=== PATIENT | female | born 1950 | race Caucasian/White ===

== ENCOUNTER → 2017-08-07 09:18 | Outpatient (CLI) | payer MEDICARE, OTHER, SELFPAY ==
[2017-08-07 09:46] LABS: Basophils # 0.1 K/mm3 (0-0.2); Basophils % 0.8 % (0.1-2.0); Eosinophils # 0.3 K/mm3 (0.0-0.4); Eosinophils % 3.4 % (0.1-12.0); Hematocrit 39.4 % (37.0-47.0); Lymphocytes # 1.9 K/mm3 (0.7-4.5); Mean Corpuscular HGB Conc 33.1 g/dL (31.8-35.4); Mean Corpuscular Hemoglobin 30.4 pg (27.0-31.2); Mean Corpuscular Volume 91.9 fl (81-99); Mean Platelet Volume 8.2 fl (7.4-10.4); Monocytes # 0.4 K/mm3 (0.1-1.0); Monocytes % 5.3 % (1.7-9.3); Neutrophils # 5.1 K/mm3 (1.8-7.8); Neutrophils % 65.5 % (37.0-80.0); Platelet Count 232 K/mm3 (142-424); Red Blood Count 4.29 M/mm3 (4.20-5.40); Red Cell Distribution Width 16.1 % (11.5-17.5); White Blood Count 7.7 K/mm3 (4.8-10.8)
[2017-08-07 10:57] LABS: Albumin Level 3.3 gm/dL (3.4-5.0); Anion Gap 12.2 mEq/L (5-15); Blood Urea Nitrogen 45 mg/dL (7-18); Calcium 8.3 mg/dL (8.5-10.1); Carbon Dioxide 28 mmol/L (21.0-32.0); Chloride 103 mmol/L (98-107); Creatinine,Serum 2.51 mg/dL (0.55-1.02); Estimated Glomerular Filt Rate 19 ml/min (>60); GFR (African American) 23 ML/MIN (>60); Phosphorous 4.3 mg/dL (2.4-4.9); Sodium 138 mmol/L (136-145)
[2017-08-07 11:41] LABS: Glucose 167 mg/dL (74-106)
[2017-08-07 11:47] LABS: Potassium 5.2 mmoL/L (3.5-5.1)
== END ==
PROVIDERS: Visit Provider Internal Medicine Nephrology
DX: N18.3 Chronic kidney disease, stage 3 (moderate) (principal)
CPT/HCPCS: 36415; 80069; 85025

== ENCOUNTER → 2017-08-11 13:55 | Outpatient (POV) | payer MEDICARE, OTHER, SELFPAY | PROVIDERS: Visit Provider Internal Medicine Nephrology | DX: Z00.00 Encounter for general adult medical examination without abnormal findings (principal) ==

== ENCOUNTER → 2017-08-14 11:19 | Outpatient (CLI) | payer MEDICARE, OTHER, SELFPAY ==
--- NOTE | 2017-08-14 11:25 | XR_ITS ---
XR hip LT 2-3V w/pelvis HISTORY: ITS.REASON: LEFT HIP PAIN,SCIATICA ORDERING PHYSICIAN: Kassandra Ramires PATIENT AGE: 67 years COMPARISON: None FINDINGS: No fracture or dislocation is evident. No significant degenerative change. No lytic or blastic change. Unremarkable soft tissues IMPRESSION: Negative hip
== END ==
PROVIDERS: PCP Nurse Practitioner; Visit Provider Nurse Practitioner
DX: M25.552 Pain in left hip (principal); M54.30 Sciatica, unspecified side
CPT/HCPCS: 73502

== ENCOUNTER → 2017-09-01 09:15 | Outpatient (CLI) | payer MEDICARE, OTHER, SELFPAY ==
[2017-09-01 11:07] LABS: Albumin Level 3.6 gm/dL (3.4-5.0); Anion Gap 14.7 mEq/L (5-15); Blood Urea Nitrogen 51 mg/dL (7-18); Calcium 8.9 mg/dL (8.5-10.1); Carbon Dioxide 26 mmol/L (21.0-32.0); Chloride 104 mmol/L (98-107); Creatinine,Serum 1.94 mg/dL (0.55-1.02); Estimated Glomerular Filt Rate 26 ml/min (>60); GFR (African American) 31 ML/MIN (>60); Glucose 127 mg/dL (74-106); Phosphorous 4.6 mg/dL (2.4-4.9); Potassium 4.7 mmoL/L (3.5-5.1); Sodium 140 mmol/L (136-145)
== END ==
PROVIDERS: Visit Provider Internal Medicine Nephrology
DX: N18.3 Chronic kidney disease, stage 3 (moderate) (principal)
CPT/HCPCS: 36415; 80069

== ENCOUNTER → 2018-01-07 10:41 | Outpatient (CLI) | payer MEDICARE, OTHER, SELFPAY ==
--- NOTE | 2018-01-07 10:43 | MM_ITS ---
MM Dig screening mamm BI w/CAD ORDERING PHYSICIAN : Roman Mercer MD PATIENT AGE: 67 years GENDER: Female January 2014, June 2015, January 2013, September 2016 bilateral mammogram studies as COMPARISON: INDICATION: ITS.REASON: SCREENING. No hormones. No new complaints. Family history. Mother with breast cancer age 73 TECHNIQUE: Standard CC and MLO images were obtained. R2 CAD reviewed. FINDINGS: Stable mild asymmetry. No significant new findings. No dominant mass nor suspicious calcifications. A mild residual fibroglandular elements most notable towards upper-outer quadrant of both breasts. Right slightly more than left However this pattern has remain stable with no significant change since the above mentioned studies. Specifically the minimal asymmetric likely fibroglandular elements the axillary right breast is long-standing with no significant change.. . Follow up one year adequate bilateral. IMPRESSION: Stable bilateral mammogram.. No significant new findings. No areas of concern BI-RADS Category: 1 Negative RECOMMENDED FOLLOW-UP: 1YR 1 YEAR FOLLOW-UP (A letter has been sent to the patient regarding results of the study.)
== END ==
PROVIDERS: PCP Nurse Practitioner; Visit Provider Family Medicine
DX: Z12.31 Encounter for screening mammogram for malignant neoplasm of breast (principal)
CPT/HCPCS: 77067

== ENCOUNTER 2018-01-07 13:30 | Outpatient (RCR) | payer MEDICARE, OTHER, SELFPAY ==
--- NOTE | 2017-12-23 14:46 | HMH.PTOPEV ---
PT Outpatient Evaluation Rehab PT Outpatient Evaluation Start: 12/23/17 14:30 Freq: Status: Active Protocol: Document 12/23/17 14:30 BRIESOLANGE (Rec: 12/23/17 14:45 JESSICAMERCEDES [id number]) Electronically Signed By Ziyad Mccray PT 12/23/17 14:30 Outpatient Therapy Subjective History Subjective History This is the initial Physical Therapy evaluation for Jillian Robert. Pt is a 67 y/o female referred to PT for c/o L hip pain. Pt reports pain began insidiously ~ 3 weeks ago. Pt reports c/o pain in L greater trochanter and down lateral thigh. Chief Complaint Pain Symptom Type Sharp Burning Shooting Symptoms Relieved By Heat Symptoms Aggravated By Standing Physical Activity Walking Prior Functional Limitations None Current Functional Limitations Housework Recreation Activity Walking Symptom Description Constant but Variable Level of pain today (0-10) 3 Pain scale - at its best (0-10) 3 Pain scale - at its worst (0-10) 9 Hip/Knee Eval Gait Observation General Gait Pattern Observation Antalgic Gait Assistive Device Assistive Devices None / NA Palpation Tenderness left Hip Palpation Findings Tenderness Trigger Point MMT Hip Abduction Strength Grade 3+ Fair+ Gluteus Ludwig Strength Grade 3+ Fair+ Special Tests Hip 90-90 Straight Leg Raise Test Negative Left Sciatic Nerve Tension Test Negative Left Hip Scouring (Quadrant) Test Negative Left Outpatient Therapy Assessment Impairments Problems/Impairmments Palpation Tenderness Impaired Strength Impaired Walking Impaired Standing Impaired Household Care Impaired Recreational Activities Subjective C/O Pain Impaired Self Care/Self Management Prognosis Rehab Potential Fair Clinical Impression Consistent with Diagnosis Yes Short Term Goals Number of Weeks 2 Decreased Palpation Tenderness Yes: 1/4 TTP Increase Strength Yes: 4/5 Increase Ability to Walk Yes: 10+ Improve Ability For Household Care
== END 2018-01-07 13:31 | disposition home or self-care (01) ==
LOC: PT 13:30
PROVIDERS: PCP Nurse Practitioner; Visit Provider Nurse Practitioner Family
DX: M76.32 Iliotibial band syndrome, left leg (principal); M70.62 Trochanteric bursitis, left hip
CPT/HCPCS: 97014; 97110; 97140; 97163; G0283

== ENCOUNTER → 2018-01-15 14:39 | Outpatient (CLI) | payer MEDICARE, OTHER, SELFPAY ==
--- NOTE | 2018-01-15 14:46 | XR_ITS ---
EXAM: XR lumbar spine min 4V HISTORY: ITS.REASON: LUMBAGO WITH BILAT SCIATICA ORDERING PHYSICIAN: Jenny Cruz PATIENT AGE: 67 years COMPARISON: None FINDINGS: There is mild lumbar scoliosis convex right. There is severe degenerative disc disease at L1-L2 with minimal chronic compression changes of L1. Endplate osteophytes are present at that level. There is degenerative disc disease also at L2-L3 L3-L4 and L4-L5 with minimal anterolisthesis of L4 on L5 of 3 mm. No acute fracture or dislocation. No lytic or blastic change. There is faint densities noted in the right upper quadrant and could be related to overlying renal calculi. Vascular calcification is noted. There is catheter noted overlying the left mid abdominal region with a port etiology indeterminate IMPRESSION: 1. Dextroscoliosis with degenerative disc disease as described above and mild chronic wedging of L1. 2. Possible right nephrolithiasis
== END ==
PROVIDERS: PCP Nurse Practitioner Family; Visit Provider Nurse Practitioner Family
DX: M54.42 Lumbago with sciatica, left side (principal); M54.41 Lumbago with sciatica, right side
CPT/HCPCS: 72110

== ENCOUNTER → 2018-01-23 14:46 | Outpatient (CLI) | payer MEDICARE, OTHER, SELFPAY ==
--- NOTE | 2018-01-23 14:47 | MR_ITS ---
MR lumbar spine wo con, MR 3-d myelogram/MRCP HISTORY: PT states low back pain X years. Gotten worse last 6-7 months. Bilateral leg pain. Right leg numbness. ITS.REASON: LUMBAGO WITH SCIATICA/RIGHT AND LEFT SIDE ORDERING PHYSICIAN: Jenny Cruz PATIENT AGE: 67 years Comparison: MRI 10/05/12. x-ray 01/15/18 TECHNIQUE: Standard multiplanar multiecho sequences are performed without contrast. 3-D MIP and myelographic images are also rendered and reviewed FINDINGS: Multilevel degenerative disc disease is present. There is mild lumbar scoliosis convex right. The spinal cord ends at the L1 level. T12-L1: Unremarkable. L1-L2: Severe degenerative disc disease with mild retrolisthesis of L1 of 4 mm. Anterior endplate osteophyte. Mild bulging disc with broad-based right paracentral and foraminal disc osteophyte complex with moderate right lateral recess and foraminal narrowing which is slightly progressed compared to the previous exam. Mild left lateral translation of L1 by approximately 4 mm. L2-L3: Degenerative disc disease with bulging disc and facet and ligamentum flavum hypertrophy. There is associated small left paracentral disc protrusion which is developed compared to the previous study. There is moderate right lateral recess and foraminal narrowing with moderate to severe left lateral recess and foraminal narrowing. There is impingement upon the left L3 nerve root L3-L4: Degenerative disc disease with bulging disc along with facet and ligamentum flavum hypertrophy with severe bilateral lateral recess narrowing along with transverse narrowing of the canal. There is severe left-sided foraminal narrowing and moderate to severe right foraminal narrowing. There is impingement upon the L4 nerve roots bilaterally and the exiting left L3 nerve root. L4-5: Degenerative disc disease with bulging disc and small broad-based central disc protrusion. 3 mm anterolisthesis of L4. Severe facet ligamentum flavum hypertrophic changes are present and are greater on the right compared to the left with severe right lateral recess and foraminal narrowing. The nerve roots are not well delineated at this level due to the severe narrowing of the canal but are likely impinged upon. There is impingement upon the exiting L4 nerve root. There is moderate to severe left foraminal narrowing with impingement upon the L5 nerve root. These findings have developed since the previous exam. There is severe canal stenosis with transverse narrowing of the canal which measures 5 mm L5-S1: Degenerative disc disease with bulging disc and minimal central disc protrusion with mild facet and ligamentum flavum hypertrophy. Moderate right foraminal narrowing. IMPRESSION: Multilevel lumbar spondylosis as detailed above with degenerative disc disease, bulging disc, and facet and ligamentum flavum hypertrophy with resultant canal stenosis, lateral recess narrowing, and foraminal narrowing with nerve root impingement. Please see above for detailed description at each level. The canal stenosis is most severe at L4-5. The lateral recess narrowing is also most severe on the right at L4-L5. There is a small left paracentral disc protrusion at L2-L3 and there is transverse narrowing of the canal at L3-L4 as well. Please see above for detailed descriptions at each level
--- NOTE | 2018-01-23 15:19 | HMH.ITSHM ---
tamsulosin sulfasalazine diltoeizen omeprazole eloquin metformin methotrexate losartan dig spirolactone
== END ==
PROVIDERS: PCP Nurse Practitioner Family; Visit Provider Nurse Practitioner Family
DX: M54.42 Lumbago with sciatica, left side (principal); M54.41 Lumbago with sciatica, right side
CPT/HCPCS: 72148; 76376

== ENCOUNTER 2018-04-27 08:29 | Observation (INO) ==
--- NOTE | 2018-04-27 09:01 | Emergency Department Note ---
ED Disposition Clinical Impression: Nausea and vomiting after administration of anesthetic agent, Nausea and vomiting in adult patient, Hyperglycemia due to type 1 diabetes mellitus Disposition: Admitted as Observation Condition on Discharge: Fair Instructions: Nausea and Vomiting-Adult Additional Instructions: DI for Hyperglycemia DI for Hypovolemia Referrals: Jenny Cruz APRN [Primary Care Provider] - Time of Disposition: 09:54 - Critical Care Critical Care Time: No (no) Attestation: On , the high probability of a clinically significant, sudden or life threatening deterioration of the following system(s) required my full and direct attention, intervention and personal management. The time I documented below is in addition to time spent performing reported procedures but includes the following listed in this critical care notation. Medical Decision Making - Medical Records Medical records reviewed: Yes: I reviewed the patient's medical records. - [place] Inquiry Pt receiving controlled substance: No Donald was queried for this patient: No Vital Signs: 04/27/18 08:31 04/27/18 08:54 04/27/18 09:29 Temperature 98.2 F Temperature Source Oral Pulse Rate [Right Brachial] 125 H 116 H 120 H Respiratory Rate 18 18 18 Blood Pressure [Right Arm] 162/104 H 145/81 H 160/95 H Blood Pressure Mean [Right Arm] 123 102 116 Blood Pressure Source [Right Arm] Automatic Cuff Automatic Cuff Automatic Cuff Blood Pressure Position [Right Arm] Sitting Sitting Supine 02 Sat by Pulse Oximetry 96 95 97 Oxygen Delivery Method Room Air Room Air Room Air - Lab Data Lab results reviewed: Yes: I reviewed the patient's lab results. Lab Results 04/27/18 08:45: WBC 14.4 H, RBC 4.60, Hgb 13.8, Hct 43.2, MCV 93.9, MCH 30.1, MCHC 32.0, RDW 16.1, Plt Count 693 H, MPV 6.9 L, Neut % (Auto) 77.5, Lymph % (Auto) 15.1, [place] % (Auto) 4.5, Eos % (Auto) 1.7, Baso % (Auto) 1.1, Neut # (Auto) 11.2 H, Lymph # (Auto) 2.2, [place] # (Auto) 0.7, Eos # (Auto) 0.2, Baso # (Auto) 0.2 04/27/18 08:45: Sodium 135 L, Potassium 4.4, Chloride 96 L, Carbon Dioxide 26, Anion Gap 17.4 H, BUN 16, Creatinine 1.78 H, Estimated Creat Clear 30, Estimated GFR 28 L, Est GFR ( Amer) 34 L, Glucose 203 H, Calcium 8.5, Total Bilirubin 0.4, AST 20, ALT 18, Alkaline Phosphatase 197 H, Total Protein 7.0, Albumin 3.1 L, Globulin 3.9 H, Albumin/Globulin Ratio 0.8 L 04/27/18 08:45: Amylase 18 L, Lipase 92 Result diagrams: 04/27/18 08:45 04/27/18 08:45 Orders (Tests/Meds): ED MEDICATIONS Generic Name Dose Route Start Last Admin Trade Name Freq PRN Reason Stop Dose Admin Sodium Chloride 1,000 mls @ 999 mls/hr 04/27/18 09:00 04/27/18 09:00 Sod Chlor 0.9% 1000ml Bag IV 04/27/18 10:00 999 mls/hr .Q1H1M PRAVEENA Administration Discontinued Medications Generic Name Dose Route Start Last Admin Trade Name Freq PRN Reason Stop Dose Admin Promethazine HCl 12.5 mg 04/27/18 08:53 04/27/18 09:00 Phenergan 25mg/Ml 1ml Vial IV 04/27/18 08:54 12.5 mg ONCE ONE Administration Sodium Chloride 25 ml 04/27/18 08:53 04/27/18 09:00 Sod Chlor 0.9% 25ml Bag IV 04/27/18 08:54 25 ml ONCE ONE Administration ORDERS Category Date Time Status Acute abdomen XR series [XR acute abdomen series] Stat Exams 04/27/18 08:52 Taken - Radiology Data #1 Image(s): Chest, Abdomen Image Reviewed: Yes I reviewed the patient's radiology results Preliminary Findings: Normal/NAD Nausea/Vomiting/Diarrhea HPI - General Chief complaint: Nausea/Vomiting/Diarrhea Stated complaint: vomiting Time Seen by Provider: 04/27/18 08:58 Mode of Arrival: Wheelchair Source of Information: Patient, Spouse Limitations: No Limitations Description of Symptoms (Recalled from ER Triage Doc. by RN): Pt reports has been having nausea and vomitting since she had a lumbar fusion on 04/08/18. Pt report she was previously seen in the ER for same complaint, states she was given IVF, felt better the next day but nausea and vomitting returned. Pt reports she has followed up with her surgeon Dr. Blanchard who told pt is may be from pt having to get narcan while in the hospital after surgery. Pt reports "they overdosed me on oxycontin and then I had to get 2 narcan shots". - History of Present Illness MD complaint: nausea, vomiting Onset (ago): week(s) (3) Description of Vomiting: food contents Associated Abdominal Pain: No Consistency: intermittent Relieving factors: none Exacerbating factors: eating Associated symptoms: denies other symptoms - Related Data Home Medications Medication Instructions Recorded Confirmed Allopurinol [Allopurinol 100mg 100 mg PO DAILY 04/27/18 04/27/18 tablet] Carvedilol [Carvedilol 25mg Tab] 25 mg PO BID 04/27/18 04/27/18 Empagliflozin [Jardiance] 25 mg PO DAILY 04/27/18 04/27/18 Gabapentin [Gabapentin 300mg Cap] 600 mg PO TID 04/27/18 04/27/18 Icosapent Ethyl [Vascepa] 1 gm PO DAILY 04/27/18 04/27/18 Insulin Lispro [Humalog] 0 unit SQ AC 04/27/18 04/27/18 Levothyroxine Sodium 125 mcg PO DAILY 04/27/18 04/27/18 [Levothyroxine 125mcg (0.125mg) Tab] Losartan Potassium 50 mg PO DAILY 04/27/18 04/27/18 Metoclopramide HCl [Reglan 5mg 5 mg PO AC 04/27/18 04/27/18 Tablet] Omeprazole [Omeprazole 40mg 40 mg PO DAILY 04/27/18 04/27/18 Capsule] Rosuvastatin Calcium [Crestor] 10 mg PO DAILY 04/27/18 04/27/18 Scopolamine [Transderm-Scop 1 patch TD NEEDED PRN 04/27/18 04/27/18 1.5mg/72hrs patch] Trazodone HCl 50 mg PO HS 04/27/18 04/27/18 Allergies Allergy/AdvReac Type Severity Reaction Status Date / Time lisinopril [LISINOPRIL] Allergy Severe S-SWELLS-OR Verified 04/18/18 13:01 AL/THROAT nitrofurantoin Allergy Intermediate I-HIVES Verified 04/18/18 13:01 [NITROFURANTOIN] codeine [CODEINE] Allergy Unknown NA-NAUSEA/V Verified 04/18/18 13:01 OMITING [place] History I have reviewed the patient's past medical history: Yes Medical History: Reports:: Diabetes Mellitus Type 2 Laterality Cases: Right: Other - Social History Alcohol Intake: never - Psychiatric History Expresses thoughts of harming self/others: None Suicide Plan Description: No Plan ROS Obtained: Yes All systems reviewed & no additional complaints - Constitutional Constitutional: Reports system reviewed and no additional complaints, except as docu, Denies chills, Denies fever(s) - Cardiovascular Cardiovascular: Reports system reviewed and no additional complaints, except as docu, Denies chest pain, Denies dyspnea - Respiratory Respiratory: Yes system reviewed and no additional complaints, except as docu, No cough, No dyspnea - Gastrointestinal Gastrointestingal: Reports: system reviewed and no additional complaints, except as docu, nausea, vomiting. Denies: coffee ground emesis, constipation, diarrhea, dysphagia - Genitourinary Female Genitourinary: Reports system reviewed and no additional complaints, except as docu, Denies dysuria, Denies flank pain, Denies pelvic pain, Denies urinary frequency, Denies urinary hesitancy, Denies urinary urgency - Neurologic Neurologic: Reports system reviewed and no additional complaints, except as docu, Denies convulsions, Denies dizziness, Denies headache(s) Physical Exam - General General appearance: alert, in no apparent distress - Head Head exam: atraumatic, normocephalic, normal inspection - ENT ENT exam: Present: normal exam, normal oropharynx, mucous membranes moist, TM's normal bilaterally, normal external ear exam - Respiratory Respiratory exam: Present: normal lung sounds bilaterally. Absent: respiratory distress - Cardiovascular Cardiovascular exam: Present: regular rate, normal rhythm. Absent: JVD - Abdominal Exam Abdominal exam: Present: soft, normal bowel sounds. Absent: distention, tenderness, guarding - Back Exam Back exam: Present: normal inspection. Absent: tenderness - Neurological Exam Neurological exam: Present: alert, oriented X3 - Psychiatric Psychiatric exam: Present: normal affect, normal mood - Skin Skin exam: Present: warm, dry, intact, normal color
[2018-04-27 09:03] LABS: Basophils # 0.2 K/mm3 (0-0.2); Basophils % 1.1 % (0.1-2.0); Eosinophils # 0.2 K/mm3 (0.0-0.4); Eosinophils % 1.7 % (0.1-12.0); Hematocrit 43.2 % (37.0-47.0); Hemoglobin 13.8 g/dL (12.2-16.2); Lymphocytes # 2.2 K/mm3 (0.7-4.5); Lymphocytes % 15.1 % (10-50); Mean Corpuscular Hemoglobin 30.1 pg (27.0-31.2); Mean Corpuscular Volume 93.9 fl (81-99); Mean Platelet Volume 6.9 fl (7.4-10.4); Monocytes # 0.7 K/mm3 (0.1-1.0); Monocytes % 4.5 % (1.7-9.3); Neutrophils # 11.2 K/mm3 (1.8-7.8); Neutrophils % 77.5 % (37.0-80.0); Platelet Count 693 K/mm3 (142-424); Red Cell Distribution Width 16.1 % (11.5-17.5); White Blood Count 14.4 K/mm3 (4.8-10.8)
[2018-04-27 09:08] LABS: Amylase 18 U/L (25-115); Lipase 92 u/L (73-393)
[2018-04-27 09:11] LABS: Albumin Level 3.1 gm/dL (3.4-5.0); Albumin/Globulin Ratio 0.8 (1.1-1.8); Anion Gap 17.4 mEq/L (5-15); Bilirubin,Total 0.4 mg/dL (0.2-1.0); Calcium 8.5 mg/dL (8.5-10.1); Globulin 3.9 gm/dl (1.3-3.2); Potassium 4.4 mmoL/L (3.5-5.1)
--- NOTE | 2018-04-27 12:10 | History & Physical Report ---
*Admission Date: 04/27/18 *Chief complaint: Vomiting *History of present illness: 67-year-old female who underwent lumbar spine fusion on April 08 and postoperatively began vomiting after meals. Vomiting after meals regardless of whether meals consist of solids or liquids has persisted now for 3 weeks. Rickey valladares tells me within a few minutes of beginning to eat the patient will develop nausea and then vomited. During this time stools have been black and green. Bowel movements have remained regular and she even uses Imodium due to occasional bowel incontinence. She denies fevers or chills. She denies abdominal pain. Patient's most recent episode of vomiting was quite severe and began screaming and lasted the night. When she in the emergency treatment she was retching. She has been admitted for IV fluids, antiemetics and GI workup. Patient's symptoms have been treated with oral Zofran and Reglan as well as a scopolamine patch. [facility] History I have reviewed the patient's past medical history: Yes Medical History: Reports:: Diabetes Mellitus Type 2, Hypertension Other Medical History: Reports: Anemia, Hypothyroidism Laterality Cases: Right: Other Other Surgeries: Yes: Hysterectomy-Total (2001) - *Social History Alcohol Intake: never Occupational Status: retired - Psychiatric History Expresses thoughts of harming self/others: None Suicide Plan Description: No Plan Review of Systems - Review of Systems Review of systems:: pertinent systems reviewed and negative unless documented below - Constitutional Denies body ache(s), Denies chills, Denies daytime sleepiness - ENT Denies difficulty swallowing, Denies bad breath - *Cardiovascular Denies chest pain, Denies chest pain at rest, Denies chest pain with activity, Denies shortness of breath - *Respiratory Denies chest congestion, Denies cough, Denies shortness of breath - *Gastrointestinal Reports change in stools, Reports loose stools, Reports heartburn, Reports heartburn, Reports loose stools, Reports black, tarry stools, Reports nausea, Reports vomiting, Denies abdominal pain, Denies belching, Denies bloating, Denies difficulty swallowing, Denies feeling full early, Denies vomiting blood, Denies bright, red blood in stools, Denies pain with swallowing, Denies constant urge to pass stool - *Musculoskeletal Reports joint pain - *Neurologic Denies seizure-like activity, Denies dizziness, Denies headache(s) Meds Home Medications Medication Instructions Recorded Confirmed Type Allopurinol [Allopurinol 100mg 100 mg PO DAILY 04/27/18 04/27/18 History tablet] Carvedilol [Carvedilol 25mg Tab] 25 mg PO BID 04/27/18 04/27/18 History Empagliflozin [Jardiance] 25 mg PO DAILY 04/27/18 04/27/18 History Gabapentin [Gabapentin 300mg Cap] 600 mg PO TID 04/27/18 04/27/18 History Icosapent Ethyl [Vascepa] 1 gm PO DAILY 04/27/18 04/27/18 History Insulin Lispro [Humalog] 0 unit SQ AC 04/27/18 04/27/18 History Levothyroxine Sodium 125 mcg PO DAILY 04/27/18 04/27/18 History [Levothyroxine 125mcg (0.125mg) Tab] Losartan Potassium 50 mg PO DAILY 04/27/18 04/27/18 History Metoclopramide HCl [Reglan 5mg 5 mg PO AC 04/27/18 04/27/18 History Tablet] Omeprazole [Omeprazole 40mg 40 mg PO DAILY 04/27/18 04/27/18 History Capsule] Rosuvastatin Calcium [Crestor] 10 mg PO DAILY 04/27/18 04/27/18 History Scopolamine [Transderm-Scop 1 patch TD NEEDED PRN 04/27/18 04/27/18 History 1.5mg/72hrs patch] Trazodone HCl 50 mg PO HS 04/27/18 04/27/18 History Allergies Allergy/AdvReac Type Severity Reaction Status Date / Time lisinopril [LISINOPRIL] Allergy Severe S-SWELLS-OR Verified 04/18/18 13:01 AL/THROAT nitrofurantoin Allergy Intermediate I-HIVES Verified 04/18/18 13:01 [NITROFURANTOIN] codeine [CODEINE] Allergy Unknown NA-NAUSEA/V Verified 04/18/18 13:01 OMITING acetaminophen [From Percocet] AdvReac Severe Hallucinati Verified 04/27/18 11:03 ng oxycodone [From Percocet] AdvReac Severe Hallucinati Verified 04/27/18 11:03 ng Exam Vital signs and Labs for Last 24 Hours: Temp Pulse Resp BP Pulse Ox 98.3 F 120 H 18 159/106 H 97 04/27/18 11:04 04/27/18 11:04 04/27/18 11:04 04/27/18 11:04 04/27/18 11:04 Laboratory Results - last 24 hr 04/27/18 08:45: WBC 14.4 H, RBC 4.60, Hgb 13.8, Hct 43.2, MCV 93.9, MCH 30.1, MCHC 32.0, RDW 16.1, Plt Count 693 H, MPV 6.9 L, Neut % (Auto) 77.5, Lymph % (Auto) 15.1, [place] % (Auto) 4.5, Eos % (Auto) 1.7, Baso % (Auto) 1.1, Neut # (Auto) 11.2 H, Lymph # (Auto) 2.2, [place] # (Auto) 0.7, Eos # (Auto) 0.2, Baso # (Auto) 0.2 04/27/18 08:45: Sodium 135 L, Potassium 4.4, Chloride 96 L, Carbon Dioxide 26, Anion Gap 17.4 H, BUN 16, Creatinine 1.78 H, Estimated Creat Clear 30, Estimated GFR 28 L, Est GFR ( Amer) 34 L, Glucose 203 H, Calcium 8.5, Total Bilirubin 0.4, AST 20, ALT 18, Alkaline Phosphatase 197 H, Total Protein 7.0, Albumin 3.1 L, Globulin 3.9 H, Albumin/Globulin Ratio 0.8 L 04/27/18 08:45: Amylase 18 L, Lipase 92 I & O for Last 24 hours: Intake & Output 04/25/18 04/26/18 04/27/18 04/28/18 11:59 11:59 11:59 11:59 Intake Total 1000 / 1000 Balance 1000 / 1000 Weight 129 lb 8 oz - Constitutional no acute distress - *Routine HEENT Exam ENT: Present: mucous membranes moist - *Routine Respiratory Exam Present: CTA bilaterally - *Routine Cardiovascular Exam Present: RRR, Normal S1, Normal S2 - *Routine Abdominal Exam Present: soft, normoactive bowel sounds. Absent: tenderness, distended, rebound, guarding - *Routine Extremities Exam Present: full ROM - *Routine Skin Exam Present: intact. Absent: erythema, lesions - *Routine Neurological Exam Present: alert, oriented X3, CN II-XII intact. Absent: sensory deficit, motor deficit Assessment and Plan (1) Hypertension Current visit: Yes Status: Acute Category: Medical Code(s): I10 - Essential (primary) hypertension (2) Type 2 diabetes mellitus with hyperglycemia Current visit: Yes Status: Acute Category: Medical Code(s): E11.65 - Type 2 diabetes mellitus with hyperglycemia (3) Hypothyroidism Current visit: Yes Status: Acute Category: Medical Code(s): E03.9 - Hypothyroidism, unspecified (4) GERD (gastroesophageal reflux disease) Current visit: Yes Status: Acute Category: Medical Code(s): K21.9 - Gastro-esophageal reflux disease without esophagitis (5) Nausea and vomiting in adult patient Current visit: Yes Status: Acute Category: Medical Code(s): R11.2 - Nausea with vomiting, unspecified (6) Fusion of lumbar spine Current visit: No Status: Acute Category: Medical Code(s): M43.26 - Fusion of spine, lumbar region (7) Renal insufficiency Current visit: No Status: Acute Category: Medical Code(s): N28.9 - Disorder of kidney and ureter, unspecified - Assessment and plan all Dx Assessment and Plan for all problems:: 1. Patient has been admitted for IV fluids and IV metoclopramide every 6 hours will be added to her regimen as well as IV Protonix. 2. Fingerstick blood sugars with before meals and at bedtime coverage 3. Home medicines if she can tolerate 4. Patient will be started on clears but I will order an upper GI. If upper GI is unrevealing patient will need endoscopy.
--- NOTE | 2018-04-27 14:36 | Pharmacy Consult Notes ---
[facility] Pharmacy VTE Monitoring - Patient Demographics Admission date: 04/27/18 Report Date: 04/27/18 Time: 14:35 Allergies/Adverse Reactions: Patient Allergies lisinopril [LISINOPRIL] Allergy (Severe, Verified 04/18/18 13:01) [id number]/THROAT nitrofurantoin [NITROFURANTOIN] Allergy (Intermediate, Verified 04/18/18 13:01) I-HIVES codeine [CODEINE] Allergy (Unknown, Verified 04/18/18 13:01) NA-NAUSEA/VOMITING acetaminophen [From Percocet] Adverse Reaction (Severe, Verified 04/27/18 11:03) Hallucinating oxycodone [From Percocet] Adverse Reaction (Severe, Verified 04/27/18 11:03) Hallucinating Height: 1.5 m Weight: 58.74 kg Patient Problems: Current Active Problems Nausea and vomiting after administration of anesthetic agent (Acute) Nausea and vomiting in adult patient (Acute) Hyperglycemia due to type 1 diabetes mellitus (Acute) Hypertension (Acute) Type 2 diabetes mellitus with hyperglycemia (Acute) Hypothyroidism (Acute) GERD (gastroesophageal reflux disease) (Acute) - VTE Risk Labs: VTE Related Lab Results Hgb 13.8 g/dL (12.2-16.2) 04/27/18 08:45 Hct 43.2 % (37.0-47.0) 04/27/18 08:45 Plt Count 693 K/mm3 (142-424) H 04/27/18 08:45 BUN 16 mg/dL (7-18) 04/27/18 08:45 Creatinine 1.78 mg/dL (0.55-1.02) H 04/27/18 08:45 Estimated Creat Clear 30 mL/min (50-200) 04/27/18 08:45 Was VTE Risk Assessment Performed: Yes VTE Score: 4 VTE Risk Level: Low Risk - Prophylaxis VTE Prophylaxis Ordered?: Yes Types of VTE Prophylaxis: TEDS Knee High Location of Applied Device: Bilateral Lower Extremeties
[2018-04-28 05:54] LABS: Basophils # 0.1 K/mm3 (0-0.2); Eosinophils # 0.4 K/mm3 (0.0-0.4); Eosinophils % 4.6 % (0.1-12.0); Hematocrit 35.3 % (37.0-47.0); Lymphocytes # 2.7 K/mm3 (0.7-4.5); Lymphocytes % 31.6 % (10-50); Mean Corpuscular HGB Conc 31.8 g/dL (31.8-35.4); Mean Corpuscular Volume 94.3 fl (81-99); Monocytes # 0.5 K/mm3 (0.1-1.0); Monocytes % 5.9 % (1.7-9.3); Neutrophils # 4.9 K/mm3 (1.8-7.8); Neutrophils % 56.9 % (37.0-80.0); Platelet Count 498 K/mm3 (142-424); Red Blood Count 3.75 M/mm3 (4.20-5.40); White Blood Count 8.6 K/mm3 (4.8-10.8)
[2018-04-28 06:09] LABS: Chol/HDL Ratio 5.9 (1-3.5); Cholesterol 220 mg/dL (140-200); HDL Cholesterol 37 mg/dL (29-89)
[2018-04-28 06:22] LABS: Triglycerides 406 mg/dL (30-200)
[2018-04-28 06:29] LABS: Hemoglobin 11.2 g/dL (12.2-16.2)
--- NOTE | 2018-04-28 07:14 | Progress Note ---
Internal Medicine - PN: Subj *Date: 04/28/18 *Time: 07:13 Interval history: Patient is without complaints this morning. She tolerated cranberry juice and bouillon. Upper GI performed yesterday afternoon was normal Exam Vital signs and Labs for Last 24 Hours: Temp Pulse Resp BP Pulse Ox 98.0 F 91 H 18 143/72 H 95 04/28/18 04:33 04/28/18 04:33 04/28/18 04:33 04/28/18 04:33 04/28/18 04:33 Laboratory Results - last 24 hr 04/27/18 08:45: WBC 14.4 H, RBC 4.60, Hgb 13.8, Hct 43.2, MCV 93.9, MCH 30.1, MCHC 32.0, RDW 16.1, Plt Count 693 H, MPV 6.9 L, Neut % (Auto) 77.5, Lymph % (Auto) 15.1, [place] % (Auto) 4.5, Eos % (Auto) 1.7, Baso % (Auto) 1.1, Neut # (Auto) 11.2 H, Lymph # (Auto) 2.2, [place] # (Auto) 0.7, Eos # (Auto) 0.2, Baso # (Auto) 0.2 04/27/18 08:45: Sodium 135 L, Potassium 4.4, Chloride 96 L, Carbon Dioxide 26, Anion Gap 17.4 H, BUN 16, Creatinine 1.78 H, Estimated Creat Clear 30, Estimated GFR 28 L, Est GFR ( Amer) 34 L, Glucose 203 H, Calcium 8.5, Total Bilirubin 0.4, AST 20, ALT 18, Alkaline Phosphatase 197 H, Total Protein 7.0, Albumin 3.1 L, Globulin 3.9 H, Albumin/Globulin Ratio 0.8 L 04/27/18 08:45: Amylase 18 L, Lipase 92 04/27/18 17:29: POC Glucose 101 04/27/18 21:57: POC Glucose 143 H 04/28/18 05:15: WBC 8.6 D, RBC 3.75 L, Hgb 11.2 L D, Hct 35.3 L, MCV 94.3, MCH 30.0, MCHC 31.8, RDW 16.0, Plt Count 498 H D, MPV 7.0 L, Neut % (Auto) 56.9, Lymph % (Auto) 31.6, [place] % (Auto) 5.9, Eos % (Auto) 4.6, Baso % (Auto) 1.0, Neut # (Auto) 4.9, Lymph # (Auto) 2.7, [place] # (Auto) 0.5, Eos # (Auto) 0.4, Baso # (Auto) 0.1 04/28/18 05:15: Magnesium 1.0 L, Triglycerides 406 H, Cholesterol 220 H, HDL Cholesterol 37, Cholesterol/HDL Ratio 5.9 H 04/28/18 05:54: POC Glucose 104 I & O for Last 24 hours: Intake & Output 04/25/18 04/26/18 04/27/18 04/28/18 11:59 11:59 11:59 11:59 Intake Total 999 / 2538 Balance 999 / 2538 Weight 129 lb 8 oz 129 lb 8 oz Narrative: She looks well. Lungs are clear to auscultation. Heart has a regular rate and rhythm. Abdomen is soft and nontender. Bowel sounds are present Assessment and Plan (1) Nausea and vomiting in adult patient Current visit: Yes Status: Acute Category: Medical Code(s): R11.2 - Nausea with vomiting, unspecified (2) Hypertension Current visit: Yes Status: Acute Category: Medical Code(s): I10 - Essential (primary) hypertension (3) Type 2 diabetes mellitus with hyperglycemia Current visit: Yes Status: Acute Category: Medical Code(s): E11.65 - Type 2 diabetes mellitus with hyperglycemia (4) Hypothyroidism Current visit: Yes Status: Acute Category: Medical Code(s): E03.9 - Hypothyroidism, unspecified (5) GERD (gastroesophageal reflux disease) Current visit: Yes Status: Acute Category: Medical Code(s): K21.9 - Gastro-esophageal reflux disease without esophagitis (6) Fusion of lumbar spine Current visit: No Status: Acute Category: Medical Code(s): M43.26 - Fusion of spine, lumbar region (7) Renal insufficiency Current visit: No Status: Acute Category: Medical Code(s): N28.9 - Disord er of kidney and ureter, unspecified - Assessment and plan all Dx Assessment and Plan for all problems:: Continue IV Reglan and advance diet. Decrease IV fluids. Replace magnesium.
--- NOTE | 2018-04-28 16:41 | Discharge Summary ---
General - General Admission date:: 04/27/18 <Roman Mercer - 04/28/18 16:47> 04/27/18 <Audrey Reeder - 04/28/18 16:46> Discharge date: 04/28/18 <Audrey Reeder - 04/28/18 16:46> HPI HPI: 67-year-old female who underwent lumbar spine fusion on April 08 and postoperatively began vomiting after meals. Vomiting after meals regardless of whether meals consist of solids or liquids has persisted now for 3 weeks. Patient tells me within a few minutes of beginning to eat the patient will develop nausea and then vomited. During this time stools have been black and green. Bowel movements have remained regular and she even uses Imodium due to occasional bowel incontinence. She denies fevers or chills. She denies abdominal pain. Patient's most recent episode of vomiting was quite severe and began screaming and lasted the night. When she in the emergency treatment she was retching. She has been admitted for IV fluids, antiemetics and GI workup. Patient's symptoms have been treated with oral Zofran and Reglan as well as a scopolamine patch. <Audrey Reeder 04/28/18 16:46> Hospital Course Hospital Course: Patient was admitted and placed on antiemetics, given IVFs. Patient did not have any nausea or vomit a single time after admission to the floor. Upper GI performed, this was negative, she has tolerated full liquids without any nausea or vomiting. <Audrey Reeder - 04/28/18 16:46> Objective Vital signs: Temp Pulse Resp BP Pulse Ox 97.8 F 89 18 153/89 H 93 L 04/28/18 16:00 04/28/18 16:00 04/28/18 16:00 04/28/18 16:00 04/28/18 16:00 <Roman Mercer - 04/28/18 16:47> Temp Pulse Resp BP Pulse Ox 98.0 F 96 H 16 166/92 H 96 04/28/18 08:00 04/28/18 08:00 04/28/18 08:00 04/28/18 08:00 04/28/18 08:00 <Audrey Reeder - 04/28/18 16:46> no acute distress <Audrey Reeder - 04/28/18 16:46> - *Routine HEENT Exam Head: Present: normocephalic, atraumatic <Audrey Reeder - 04/28/18 16:46> - *Routine Respiratory Exam Present: CTA bilaterally. Absent: accessory muscle use <Audrey Reeder - 04/28/18 16:46> - *Routine Abdominal Exam Present: soft, normoactive bowel sounds. Absent: tenderness <Audrey Reeder - 04/28/18 16:46> - *Routine Neurological Exam Present: alert, oriented X3 <Audrey Reeder - 04/28/18 16:46> - Routine Psychiatric Exam Present: normal affect <Audrey Reeder - 04/28/18 16:46> Results Labs on day of discharge: Labs from last 24 hours 04/28/18 04/28/18 04/28/18 12:24 05:54 05:15 WBC RBC Hgb Hct MCV MCH MCHC RDW Plt Count MPV Neut % (Auto) Lymph % (Auto) [place] % (Auto) Eos % (Auto) Baso % (Auto) Neut # (Auto) Lymph # (Auto) [place] # (Auto) Eos # (Auto) Baso # (Auto) POC Glucose 134 H 104 Magnesium 1.0 L Triglycerides 406 H Cholesterol 220 H HDL Cholesterol 37 Cholesterol/HDL Ratio 5.9 H 04/28/18 04/27/18 04/27/18 05:15 21:57 17:29 WBC 8.6 D RBC 3.75 L Hgb 11.2 L D Hct 35.3 L MCV 94.3 MCH 30.0 MCHC 31.8 RDW 16.0 Plt Count 498 H D MPV 7.0 L Neut % (Auto) 56.9 Lymph % (Auto) 31.6 [place] % (Auto) 5.9 Eos % (Auto) 4.6 Baso % (Auto) 1.0 Neut # (Auto) 4.9 Lymph # (Auto) 2.7 [place] # (Auto) 0.5 Eos # (Auto) 0.4 Baso # (Auto) 0.1 POC Glucose 143 H 101 Magnesium Triglycerides Cholesterol HDL Cholesterol Cholesterol/HDL Ratio <Roman Mercer - 04/28/18 16:47> Labs from last 24 hours 04/28/18 04/28/18 04/28/18 12:24 05:54 05:15 WBC RBC Hgb Hct MCV MCH MCHC RDW Plt Count MPV Neut % (Auto) Lymph % (Auto) [place] % (Auto) Eos % (Auto) Baso % (Auto) Neut # (Auto) Lymph # (Auto) [place] # (Auto) Eos # (Auto) Baso # (Auto) POC Glucose 134 H 104 Magnesium 1.0 L Triglycerides 406 H Cholesterol 220 H HDL Cholesterol 37 Cholesterol/HDL Ratio 5.9 H 04/28/18 04/27/18 04/27/18 05:15 21:57 17:29 WBC 8.6 D RBC 3.75 L Hgb 11.2 L D Hct 35.3 L MCV 94.3 MCH 30.0 MCHC 31.8 RDW 16.0 Plt Count 498 H D MPV 7.0 L Neut % (Auto) 56.9 Lymph % (Auto) 31.6 [place] % (Auto) 5.9 Eos % (Auto) 4.6 Baso % (Auto) 1.0 Neut # (Auto) 4.9 Lymph # (Auto) 2.7 [place] # (Auto) 0.5 Eos # (Auto) 0.4 Baso # (Auto) 0.1 POC Glucose 143 H 101 Magnesium Triglycerides Cholesterol HDL Cholesterol Cholesterol/HDL Ratio <Audrey Reeder S - 04/28/18 16:46> DS: Diagnosis - Discharge Diagnosis (1) Nausea and vomiting in adult patient Status: Acute (2) Hypertension Status: Acute (3) Type 2 diabetes mellitus with hyperglycemia Status: Acute (4) Hypothyroidism Status: Acute (5) GERD (gastroesophageal reflux disease) Status: Acute (6) Fusion of lumbar spine Status: Acute (7) Renal insufficiency Status: Acute <Audrey Reeder S - 04/28/18 16:36> (1) Nausea and vomiting in adult patient Status: Acute (2) Hypertension Status: Acute (3) Type 2 diabetes mellitus with hyperglycemia Status: Acute (4) Hypothyroidism Status: Acute (5) GERD (gastroesophageal reflux disease) Status: Acute (6) Fusion of lumbar spine Status: Acute (7) Renal insufficiency Status: Acute <Roman Mercer - 04/28/18 16:47> Discharge Plan - Patient Discharge Instructions ACTIVITY: Continue current activity <Audrey Reeder - 04/28/18 16:46> Additional Instructions: eat lightly for the first few days, may advance as tolerated <Roman Mercer - 04/28/18 16:47> Patient Instructions: Nausea and Vomiting-Adult <Roman Mercer - 04/28/18 16:47> Forms: <Roman Mercer - 04/28/18 16:47> - Follow up Plan Follow up with: Audrey Reeder APRN [Nurse Practitioner] - 05/01/18 10:00 am <Roman Mercer - 04/28/18 16:47> Disposition: Home, Self-Care <Roman Mercer - 04/28/18 16:47> Home Medications: Home Medications Medication Instructions Recorded Confirmed Type Carvedilol [Carvedilol 25mg Tab] 25 mg PO BID 04/27/18 04/27/18 History Empagliflozin [Jardiance] 25 mg PO DAILY 04/27/18 04/27/18 History Gabapentin [Gabapentin 300mg Cap] 600 mg PO TID 04/27/18 04/27/18 History Icosapent Ethyl [Vascepa] 1 gm PO DAILY 04/27/18 04/27/18 History Insulin Lispro [Humalog] 0 unit SQ AC 04/27/18 04/27/18 History Levothyroxine Sodium 125 mcg PO DAILY 04/27/18 04/27/18 History [Levothyroxine 125mcg (0.125mg) Tab] Metoclopramide HCl [Reglan 5mg 5 mg PO AC 04/27/18 04/27/18 History Tablet] Omeprazole [Omeprazole 40mg 40 mg PO DAILY 04/27/18 04/27/18 History Capsule] RX: Allopurinol [Allopurinol 100mg 100 mg PO DAILY 04/27/18 04/27/18 History tablet] RX: Losartan Potassium 50 mg PO DAILY 04/27/18 04/27/18 History RX: Trazodone HCl 50 mg PO HS 04/27/18 04/27/18 History Rosuvastatin Calcium [Crestor] 10 mg PO DAILY 04/27/18 04/27/18 History Scopolamine [Transderm-Scop 1 patch TD DIRECTED PRN 04/27/18 04/28/18 History 1.5mg/72hrs patch] <Roman Mercer - 04/28/18 16:47> Prescriptions/Medication Reconciliation: New Pantoprazole Sodium [Protonix 40mg tablet] 40 mg PO DAILY 30 Days #30 tab Metoclopramide HCl [Reglan 10mg Tab] 10 mg PO ACHS #120 tab Continue Levothyroxine Sodium [Levothyroxine 125mcg (0.125mg) Tab] 125 mcg PO DAILY Icosapent Ethyl [Vascepa] 1 gm PO DAILY Gabapentin [Gabapentin 300mg Cap] 600 mg PO TID Carvedilol [Carvedilol 25mg Tab] 25 mg PO BID Rosuvastatin Calcium [Crestor] 10 mg PO DAILY Omeprazole [Omeprazole 40mg Capsule] 40 mg PO DAILY RX: Losartan Potassium 50 mg PO DAILY Insulin Lispro [Humalog] 0 unit SQ AC Empagliflozin [Jardiance] 25 mg PO DAILY Metoclopramide HCl [Reglan 5mg Tablet] 5 mg PO AC RX: Trazodone HCl 50 mg PO HS RX: Allopurinol [Allopurinol 100mg tablet] 100 mg PO DAILY Scopolamine [Transderm-Scop 1.5mg/72hrs patch] 1 patch TD DIRECTED PRN PRN Reason: Nausea <Roman Mercer - 04/28/18 16:47>
== END 2018-04-28 17:30 | disposition home or self-care (01) ==
LOC: ER 08:29 → 2ND 08:29
PROVIDERS: ADMIT Family Medicine; ATTEND Family Medicine
CPT/HCPCS: 36415; 74021; 74022; 74241; 80053; 80061; 82150; 82962; 83690; 83735; 85025; 96365; 96375; 99282; G0378

== ENCOUNTER → 2018-06-22 08:27 | Outpatient (POV) | payer MEDICARE, OTHER, SELFPAY | PROVIDERS: Visit Provider Nurse Practitioner Acute Care | DX: Z00.00 Encounter for general adult medical examination without abnormal findings (principal) ==

== ENCOUNTER → 2018-08-06 08:31 | Outpatient (CLI) | payer MEDICARE, OTHER, SELFPAY ==
[2018-08-06 08:36] LABS: Microscopic, Urine URINE MICROSCOPIC (MICROSCOPIC)
[2018-08-06 09:20] LABS: Basophils # 0.1 K/mm3 (0-0.2); Basophils % 0.8 % (0.1-2.0); Eosinophils # 0.2 K/mm3 (0.0-0.4); Eosinophils % 2.8 % (0.1-12.0); Hemoglobin 11.7 g/dL (12.2-16.2); Lymphocytes % 24.2 % (10-50); Mean Corpuscular HGB Conc 31.6 g/dL (31.8-35.4); Mean Corpuscular Volume 94.7 fl (81-99); Mean Platelet Volume 8.2 fl (7.4-10.4); Monocytes # 0.3 K/mm3 (0.1-1.0); Monocytes % 3.8 % (1.7-9.3); Neutrophils # 5.7 K/mm3 (1.8-7.8); Neutrophils % 68.5 % (37.0-80.0); Platelet Count 272 K/mm3 (142-424); Red Blood Count 3.91 M/mm3 (4.20-5.40); Red Cell Distribution Width 15.3 % (11.5-17.5); White Blood Count 8.4 K/mm3 (4.8-10.8)
[2018-08-06 09:26] LABS: Appearance,Urine CLEAR (Clear); Bilirubin,Urine Negative (Negative); Blood, Urine Negative (Negative); Color,Urine YELLOW (Yellow); Glucose,Urine (UA) 3+ (Negative); Ketones,Urine Negative (Negative); Leukocyte Esterase,Urine Negative (Negative); Nitrate,Urine Negative (Negative); Protein,Urine TRACE (Negative); Urobilinogen,Urine 0.2 EU/dl (0.2)
[2018-08-06 09:45] LABS: Bacteria,Urine Trace /lpf; Squamous Epithelial Cell,Urine Occasional #/hpf (0-5)
[2018-08-06 09:50] LABS: Albumin Level 3.5 gm/dL (3.4-5.0); Anion Gap 14.2 mEq/L (5-15); Blood Urea Nitrogen 48 mg/dL (7-18); Calcium 9.2 mg/dL (8.5-10.1); Carbon Dioxide 28 mmol/L (21.0-32.0); Chloride 101 mmol/L (98-107); Creatinine,Serum 2.58 mg/dL (0.55-1.02); Estimated Glomerular Filt Rate 18 ml/min (>60); GFR (African American) 22 ML/MIN (>60); Glucose 126 mg/dL (74-106); Phosphorous 5.1 mg/dL (2.4-4.9); Potassium 4.2 mmoL/L (3.5-5.1); Sodium 139 mmol/L (136-145); Uric Acid 6.1 mg/dL (2.6-7.2)
[2018-08-06 10:01] LABS: Creatinine,Urine Random 70 mg/dL (20-320); Total Protein,Urine Random 33.2 mg/dL (0.0-11.9)
[2018-08-07 12:37] LABS: Vitamin D 25 Hydroxy 14.9 ng/mL (30.0-100.0)
[2018-08-07 17:40] LABS: Calcium, Ionized 4.9 mg/dL (4.5-5.6); Parathyroid Hormone Intact 55 pg/mL (15-65)
== END ==
PROVIDERS: Visit Provider Internal Medicine Nephrology
DX: N18.3 Chronic kidney disease, stage 3 (moderate) (principal)
CPT/HCPCS: 36415; 80069; 81001; 82330; 82570; 82652; 83735; 83970; 84155; 84550; 85025

== ENCOUNTER → 2018-08-10 14:48 | Outpatient (POV) | payer MEDICARE, OTHER, SELFPAY | PROVIDERS: Visit Provider Internal Medicine Nephrology | DX: Z00.00 Encounter for general adult medical examination without abnormal findings (principal) ==

== ENCOUNTER → 2018-11-11 09:56 | Outpatient (CLI) | payer MEDICARE, OTHER, SELFPAY ==
[2018-11-11 10:19] LABS: Basophils # 0.1 K/mm3 (0-0.2); Basophils % 0.9 % (0.1-2.0); Eosinophils # 0.3 K/mm3 (0.0-0.4); Eosinophils % 3.3 % (0.1-12.0); Hematocrit 39.8 % (37.0-47.0); Hemoglobin 12.8 g/dL (12.2-16.2); Lymphocytes # 2.4 K/mm3 (0.7-4.5); Lymphocytes % 29.1 % (10-50); Mean Corpuscular HGB Conc 32.1 g/dL (31.8-35.4); Mean Corpuscular Hemoglobin 29.6 pg (27.0-31.2); Mean Corpuscular Volume 92.2 fl (81-99); Mean Platelet Volume 8.2 fl (7.4-10.4); Monocytes # 0.4 K/mm3 (0.1-1.0); Monocytes % 5.1 % (1.7-9.3); Neutrophils # 5.2 K/mm3 (1.8-7.8); Neutrophils % 61.7 % (37.0-80.0); Platelet Count 253 K/mm3 (142-424); Red Blood Count 4.31 M/mm3 (4.20-5.40); Red Cell Distribution Width 15.3 % (11.5-17.5); White Blood Count 8.4 K/mm3 (4.8-10.8)
[2018-11-11 11:33] LABS: Albumin Level 3.5 gm/dL (3.4-5.0); Anion Gap 15.5 mEq/L (5-15); Blood Urea Nitrogen 31 mg/dL (7-18); Calcium 8.8 mg/dL (8.5-10.1); Carbon Dioxide 27 mmol/L (21.0-32.0); Chloride 103 mmol/L (98-107); Creatinine,Serum 1.47 mg/dL (0.55-1.02); Estimated Glomerular Filt Rate 35 ml/min (>60); GFR (African American) 43 ML/MIN (>60); Glucose 224 mg/dL (74-106); Phosphorous 4.8 mg/dL (2.4-4.9); Potassium 4.5 mmoL/L (3.5-5.1); Sodium 141 mmol/L (136-145)
== END ==
PROVIDERS: Visit Provider Internal Medicine Nephrology
DX: N18.3 Chronic kidney disease, stage 3 (moderate) (principal)
CPT/HCPCS: 36415; 80069; 85025

== ENCOUNTER → 2018-11-18 13:16 | Outpatient (POV) | payer MEDICARE, OTHER, SELFPAY | PROVIDERS: Visit Provider Internal Medicine Nephrology | DX: Z00.00 Encounter for general adult medical examination without abnormal findings (principal) ==

== ENCOUNTER → 2019-02-11 09:16 | Outpatient (CLI) | payer MEDICARE, OTHER, SELFPAY ==
--- NOTE | 2019-02-11 09:19 | MM_ITS ---
PROCEDURE: MM DIG SCREENING MAMM BI W/CAD Patient Age:68Y CLINICAL INDICATION: SCREENING Routine screening mammogram 68-year-old. No hormones, Previous cyst aspiration left breast. Family history but mother with breast cancer age 73 COMPARISON: DMSB DIG MAMM-SCREEN TUTU from 06/29/2015 DMDBAV DIG MAMM-DX TUTU W/AVWS W/CAD from 09/18/2016 [facility] MM Dig screening mamm BI w/CAD from 01/07/2018 TECHNIQUE: Standard CC and MLO images were obtained. R2 CAD reviewed. Additional nipple profile MLO views right and left breast included FINDINGS: But [id number] fibroglandular elements most evident towards upper-outer quadrant. Minor asymmetry appears stable Right breast.: Minimal nodularity towards upper-outer quadrant appear stable unchanged since studies dating back to 2015, no significant new findings Stable dense calcifications right breast. Minimal developing vascular calcifications bilaterally Left breast: Scattered small areas of density again of reserved and appear stable. No significant change : Bilateral follow-up 1 year recommended IMPRESSION: Stable bilateral mammogram. No new areas of significant concern. Follow-up 1 year recommended bilateral BI-RAD Category: 2 Benign Finding(s) FOLLOW-UP: 1YR 1 Year Follow-up (A letter has been sent to the patient regarding results of the study.) Dictated by: Merlin Adamson MD 02/12/2019 11:34 Electronically signed by Merlin Adamson MD in [place] 02/12/2019 11:34
== END ==
PROVIDERS: PCP Nurse Practitioner Family; Visit Provider Nurse Practitioner Family
DX: Z12.31 Encounter for screening mammogram for malignant neoplasm of breast (principal)
CPT/HCPCS: 77067

== ENCOUNTER → 2019-05-24 10:45 | Outpatient (CLI) | payer MEDICARE, OTHER, SELFPAY ==
[2019-05-24 10:53] LABS: Microscopic, Urine URINE MICROSCOPIC (MICROSCOPIC)
[2019-05-24 11:34] LABS: Basophils # 0.1 K/mm3 (0-0.2); Basophils % 0.8 % (0.1-2.0); Eosinophils # 0.2 K/mm3 (0.0-0.4); Hematocrit 38.9 % (37.0-47.0); Hemoglobin 12.7 g/dL (12.2-16.2); Lymphocytes # 1.9 K/mm3 (0.7-4.5); Lymphocytes % 24.6 % (10-50); Mean Corpuscular HGB Conc 32.5 g/dL (31.8-35.4); Mean Corpuscular Hemoglobin 28.8 pg (27.0-31.2); Mean Corpuscular Volume 88.4 fl (81-99); Mean Platelet Volume 8.3 fl (7.4-10.4); Monocytes # 0.4 K/mm3 (0.1-1.0); Monocytes % 4.5 % (1.7-9.3); Neutrophils # 5.3 K/mm3 (1.8-7.8); Neutrophils % 67.2 % (37.0-80.0); Platelet Count 214 K/mm3 (142-424); Red Cell Distribution Width 15.6 % (11.5-17.5); White Blood Count 7.8 K/mm3 (4.8-10.8)
[2019-05-24 11:53] LABS: Appearance,Urine CLEAR (Clear); Bilirubin,Urine Negative (Negative); Blood, Urine 1+ (Negative); Color,Urine YELLOW (Yellow); Glucose,Urine (UA) TRACE (Negative); Ketones,Urine Negative (Negative); Leukocyte Esterase,Urine 1+ (Negative); Nitrate,Urine POSITIVE (Negative); Protein,Urine 1+ (Negative); Specific Gravity, Urine 1.025 (1.005-1.030); Urobilinogen,Urine 0.2 EU/dl (0.2)
[2019-05-24 11:57] LABS: Bacteria,Urine 3+ /lpf; WBC,Urine TNTC #/hpf (0-3)
[2019-05-24 12:00] LABS: Creatinine,Urine Random 117 mg/dL (20-320)
[2019-05-24 12:54] LABS: Albumin Level 3.3 gm/dL (3.4-5.0); Anion Gap 14.7 mEq/L (5-15); Blood Urea Nitrogen 31 mg/dL (7-18); Calcium 8.2 mg/dL (8.5-10.1); Carbon Dioxide 28 mmol/L (21.0-32.0); Chloride 98 mmol/L (98-107); Estimated Glomerular Filt Rate 25 ml/min (>60); GFR (African American) 30 ML/MIN (>60); Glucose 303 mg/dL (74-106); Phosphorous 4.5 mg/dL (2.4-4.9); Potassium 4.7 mmoL/L (3.5-5.1); Sodium 136 mmol/L (136-145); Uric Acid 4.8 mg/dL (2.6-7.2)
== END ==
PROVIDERS: Visit Provider Internal Medicine Nephrology
DX: N18.3 Chronic kidney disease, stage 3 (moderate) (principal); R82.90 Unspecified abnormal findings in urine
CPT/HCPCS: 36415; 80069; 81001; 82570; 82652; 84155; 84550; 85025; 87086; 87088; 87186

== ENCOUNTER → 2019-05-26 10:34 | Outpatient (POV) | payer MEDICARE, OTHER, SELFPAY | PROVIDERS: Visit Provider Internal Medicine Nephrology | DX: Z00.00 Encounter for general adult medical examination without abnormal findings (principal) ==

== ENCOUNTER → 2020-03-10 12:40 | Outpatient (CLI) | payer MEDICARE, OTHER, SELFPAY ==
--- NOTE | 2020-03-10 12:58 | MM_ITS ---
PROCEDURE: MM DIG SCREENING MAMM BI W/CAD Digital Breast Tomosynthesis Included CLINICAL INDICATION: SCREENING Cancer patient's mother diagnosed after menopause. There has been a previous cyst aspiration left breast with benign findings. COMPARISON: MG DMDBAV DIG MAMM-DX TUTU W/AVWS W/CAD from 09/18/2016 MG [facility] MM Dig screening mamm BI w/CAD from 01/07/2018 MG MM DIG SCREENING MAMM BI W/CAD from 02/11/2019 TECHNIQUE: Standard CC and MLO images and 3D Tomosynthesis was obtained. R2 CAD reviewed. FINDINGS: Scattered fibroglandular densities are seen throughout both breasts. Are benign-appearing macrocalcifications right breast. There is minimal arterial calcification in both breasts. Stable asymmetric glandular elements are seen upper outer quadrant right breast. There is no suspicious lesion and no suspicious microcalcifications. IMPRESSION: Fibrofatty parenchyma with no suspicious lesions seen BI-RAD Category: 2 Benign Finding(s) FOLLOW-UP: 1YR 1 Year Follow-up (A letter has been sent to the patient regarding results of the study.) Dictated by: Dr. Barrett Mar MD 03/14/2020 19:27 Dr. Barrett Mar MD in [place] 03/14/2020 19:27
== END ==
PROVIDERS: PCP Family Medicine; Visit Provider Family Medicine
DX: Z12.31 Encounter for screening mammogram for malignant neoplasm of breast (principal)
CPT/HCPCS: 77063; 77067

== ENCOUNTER → 2020-07-17 09:07 | Outpatient (CLI) | payer MEDICARE, OTHER, SELFPAY ==
[2020-07-17 09:27] LABS: Basophils # 0.1 K/mm3 (0-0.2); Basophils % 1.2 % (0.1-2.0); Eosinophils # 0.4 K/mm3 (0.0-0.4); Eosinophils % 3.7 % (0.1-12.0); Hematocrit 46.7 % (37.0-47.0); Hemoglobin 14.7 g/dL (12.2-16.2); Lymphocytes % 28.8 % (10-50); Mean Corpuscular HGB Conc 31.5 g/dL (31.8-35.4); Mean Corpuscular Hemoglobin 28.7 pg (27.0-31.2); Mean Corpuscular Volume 91.1 fl (81-99); Monocytes # 0.6 K/mm3 (0.1-1.0); Monocytes % 5.8 % (1.7-9.3); Neutrophils # 6.3 K/mm3 (1.8-7.8); Neutrophils % 60.5 % (37.0-80.0); Platelet Count 248 K/mm3 (142-424); Red Blood Count 5.13 M/mm3 (4.20-5.40); Red Cell Distribution Width 15.9 % (11.5-17.5); White Blood Count 10.4 K/mm3 (4.8-10.8)
[2020-07-17 09:36] LABS: Creatinine,Urine Random 107 mg/dL (Not Estab.); Hemoglobin A1C 9.1 % (4.0-6.0)
[2020-07-17 09:53] LABS: Microalbumin/Creatinine Ratio 272.8
[2020-07-17 09:54] LABS: Alanine Aminotransferase 48 U/L (12-78); Albumin Level 4.5 g/dl (3.5-5.0); Albumin/Globulin Ratio 1.4 (1.1-1.8); Alkaline Phosphatase 99 U/L (38-126); Anion Gap 12.6 mEq/L (5-15); Aspartate Amino Transferase 72 U/L (14-36); Bilirubin,Total 0.5 mg/dl (0.2-1.3); Blood Urea Nitrogen 33 mg/dl (7-17); Calcium 9.7 mg/dl (8.4-10.2); Carbon Dioxide 31 mmol/L (22.0-30.0); Chloride 99 mmol/L (98-107); Chol/HDL Ratio 4.8 (1-3.5); Cholesterol 171 mg/dl (140-200); Estimated Glomerular Filt Rate 25 ml/min (>60); GFR (African American) 30 ML/MIN (>60); Globulin 3.3 g/dL (1.3-3.2); Glucose 206 mg/dl (74-100); HDL Cholesterol 36 mg/dl (40-60); Potassium 4.6 mmoL/L (3.5-5.1); Sodium 138 mmol/L (136-145); Total Protein,Serum 7.8 g/dl (6.3-8.2)
[2020-07-17 09:55] LABS: Triglycerides 451 mg/dl (30-150)
[2020-07-17 10:15] LABS: Direct LDL Cholesterol < 30.00 mg/dL (100-129)
[2020-07-17 10:25] LABS: Thyroid Stimulating Hormone 0.24 uIU/mL (0.465-4.68)
== END ==
PROVIDERS: Visit Provider Nurse Practitioner Family
DX: E03.9 Hypothyroidism, unspecified (principal); E11.65 Type 2 diabetes mellitus with hyperglycemia; I25.10 Atherosclerotic heart disease of native coronary artery without angina pectoris; Z79.4 Long term (current) use of insulin; R11.2 Nausea with vomiting, unspecified
CPT/HCPCS: 36415; 80053; 80061; 82043; 82570; 83036; 84436; 84443; 85025

== ENCOUNTER → 2020-11-08 09:12 | Outpatient (CLI) | payer MEDICARE, OTHER, SELFPAY ==
[2020-11-08 09:50] LABS: Basophils # 0.1 K/mm3 (0-0.2); Basophils % 0.9 % (0.1-2.0); Eosinophils # 0.4 K/mm3 (0.0-0.4); Hematocrit 40.3 % (37.0-47.0); Hemoglobin 13.6 g/dL (12.2-16.2); Lymphocytes # 3.1 K/mm3 (0.7-4.5); Lymphocytes % 28.2 % (10-50); Mean Corpuscular HGB Conc 33.8 g/dL (31.8-35.4); Mean Corpuscular Hemoglobin 29.2 pg (27.0-31.2); Mean Corpuscular Volume 86.5 fl (81-99); Mean Platelet Volume 7.5 fl (7.4-10.4); Monocytes # 0.5 K/mm3 (0.1-1.0); Monocytes % 4.2 % (1.7-9.3); Neutrophils # 6.9 K/mm3 (1.8-7.8); Neutrophils % 62.8 % (37.0-80.0); Platelet Count 297 K/mm3 (142-424); Red Blood Count 4.65 M/mm3 (4.20-5.40); Red Cell Distribution Width 15.8 % (11.5-17.5)
[2020-11-08 10:28] LABS: Alanine Aminotransferase 26 U/L (12-78); Albumin/Globulin Ratio 1.3 (1.1-1.8); Alkaline Phosphatase 88 U/L (38-126); Anion Gap 9.9 mEq/L (5-15); Aspartate Amino Transferase 48 U/L (14-36); Bilirubin,Total 0.4 mg/dl (0.2-1.3); Blood Urea Nitrogen 35 mg/dl (7-17); Carbon Dioxide 30 mmol/L (22.0-30.0); Chloride 103 mmol/L (98-107); Chol/HDL Ratio 5.5 (1-3.5); Cholesterol 164 mg/dl (140-200); Estimated Glomerular Filt Rate 25 ml/min (>60); GFR (African American) 30 ML/MIN (>60); Glucose 104 mg/dl (74-100); HDL Cholesterol 30 mg/dl (40-60); Potassium 4.9 mmoL/L (3.5-5.1); Sodium 138 mmol/L (136-145); Triglycerides 375 mg/dl (30-150); VLDL Cholesterol 75 mg/dL (0-40)
[2020-11-08 10:59] LABS: Thyroid Stimulating Hormone 1.74 uIU/mL (0.465-4.68)
[2020-11-08 13:30] LABS: Hemoglobin A1C 8.3 % (4.0-6.0)
[2020-11-08 18:50] LABS: Direct LDL Cholesterol < 30.00 mg/dL (100-129)
[2020-11-08 18:53] LABS: T4 (Thyroxine) 7.7 ug/dl (5.53-11.0)
== END ==
PROVIDERS: Visit Provider Nurse Practitioner Family
DX: E10.65 Type 1 diabetes mellitus with hyperglycemia (principal); R11.2 Nausea with vomiting, unspecified; Z79.4 Long term (current) use of insulin
CPT/HCPCS: 36415; 80053; 80061; 83036; 84436; 84443; 85025

== ENCOUNTER → 2020-12-19 11:50 | Outpatient (CLI) | payer MEDICARE, OTHER, SELFPAY ==
[2020-12-19 11:54] LABS: Microscopic, Urine URINE MICROSCOPIC (MICROSCOPIC)
[2020-12-19 12:20] LABS: Appearance,Urine CLOUDY (Clear); Bilirubin,Urine Negative (Negative); Blood, Urine 1+ (Negative); Color,Urine YELLOW (Yellow); Glucose,Urine (UA) Negative (Negative); Ketones,Urine Negative (Negative); Leukocyte Esterase,Urine 2+ (Negative); Nitrate,Urine POSITIVE (Negative); Protein,Urine 1+ (Negative); Specific Gravity, Urine 1.025 (1.005-1.030); Urobilinogen,Urine 0.2 EU/dl (0.2)
[2020-12-19 12:25] LABS: Basophils # 0.1 K/mm3 (0-0.2); Basophils % 1.1 % (0.1-2.0); Eosinophils # 0.4 K/mm3 (0.0-0.4); Eosinophils % 4.4 % (0.1-12.0); Hematocrit 37.8 % (37.0-47.0); Hemoglobin 12.6 g/dL (12.2-16.2); Lymphocytes # 2.9 K/mm3 (0.7-4.5); Lymphocytes % 32.8 % (10-50); Mean Corpuscular HGB Conc 33.2 g/dL (31.8-35.4); Mean Corpuscular Hemoglobin 29.2 pg (27.0-31.2); Mean Corpuscular Volume 87.9 fl (81-99); Mean Platelet Volume 8.2 fl (7.4-10.4); Monocytes # 0.4 K/mm3 (0.1-1.0); Monocytes % 4.9 % (1.7-9.3); Neutrophils % 56.9 % (37.0-80.0); Platelet Count 201 K/mm3 (142-424); Red Cell Distribution Width 16.6 % (11.5-17.5); White Blood Count 8.7 K/mm3 (4.8-10.8)
[2020-12-19 12:40] LABS: Creatinine,Urine Random 112 mg/dL (Not Estab.)
[2020-12-19 12:58] LABS: Anion Gap 12.2 mEq/L (5-15); Blood Urea Nitrogen 40 mg/dl (7-17); Carbon Dioxide 27 mmol/L (22.0-30.0); Chloride 102 mmol/L (98-107); Estimated Glomerular Filt Rate 25 ml/min (>60); GFR (African American) 30 ML/MIN (>60); Phosphorous 4.1 mg/dl (2.5-4.5); Potassium 5.2 mmoL/L (3.5-5.1); Sodium 136 mmol/L (136-145)
[2020-12-19 13:11] LABS: Intact Parathyroid Hormone 136.4 pg/mL (7.5-53.5)
[2020-12-19 18:28] LABS: Calcium 8.7 mg/dl (8.4-10.2); Glucose 260 mg/dl (74-100)
== END ==
PROVIDERS: Visit Provider Internal Medicine Nephrology
DX: N18.4 Chronic kidney disease, stage 4 (severe) (principal); R80.9 Proteinuria, unspecified
CPT/HCPCS: 36415; 80069; 81001; 82306; 82570; 83970; 84155; 85025; 87086; 87088; 87186

== ENCOUNTER → 2020-12-25 10:01 | Outpatient (POV) | payer MEDICARE, OTHER, SELFPAY | PROVIDERS: Visit Provider Internal Medicine Nephrology | DX: Z00.00 Encounter for general adult medical examination without abnormal findings (principal) ==

== ENCOUNTER → 2021-03-23 10:51 | Outpatient (CLI) | payer MEDICARE, OTHER, SELFPAY ==
--- NOTE | 2021-03-23 10:51 | MM_ITS ---
PROCEDURE INFORMATION: Exam: MG Bilateral Screening 3D Mammography Exam date and time: 03/23/2021 10:51 AM Age: 70 years old Clinical indication: Encounter for screening mammogram for malignant neoplasm of breast TECHNIQUE: Imaging protocol: Bilateral screening tomosynthesis and 2D mammography including computer-aided detection (CAD) when performed. COMPARISON: 1. MG MM DIG SCREENING MAMM BI W/CAD 03/10/2020 12:59 PM 2. MG MM DIG SCREENING MAMM BI W/CAD 02/11/2019 9:57 AM FINDINGS: MAMMOGRAPHY: Breast composition: The breast tissue is composed of scattered areas of fibroglandular density. Mass: None. Architectural distortion: None. Calcifications: No suspicious calcifications. Asymmetric density: None. Skin thickening: None. Axillary adenopathy: None. IMPRESSION: No mammographic evidence of malignancy. Annual screening is recommended unless otherwise clinically indicated. ASSESSMENT: BI-RADS Category 1: Negative
== END ==
PROVIDERS: PCP Family Medicine; Visit Provider Nurse Practitioner Family
DX: Z12.31 Encounter for screening mammogram for malignant neoplasm of breast (principal)
CPT/HCPCS: 77063; 77067

== ENCOUNTER → 2021-05-16 18:37 | Outpatient (CLI) | payer MEDICARE, OTHER, SELFPAY ==
[2021-05-16 19:29] LABS: Basophils # 0.1 K/mm3 (0-0.2); Basophils % 0.9 % (0.1-2.0); Eosinophils # 0.4 K/mm3 (0.0-0.4); Eosinophils % 4.3 % (0.1-12.0); Hematocrit 39.7 % (37.0-47.0); Lymphocytes # 2.9 K/mm3 (0.7-4.5); Lymphocytes % 33.3 % (10-50); Mean Corpuscular HGB Conc 32.8 g/dL (31.8-35.4); Mean Corpuscular Hemoglobin 29.8 pg (27.0-31.2); Mean Corpuscular Volume 90.7 fl (81-99); Monocytes # 0.5 K/mm3 (0.1-1.0); Monocytes % 5.2 % (1.7-9.3); Neutrophils # 4.9 K/mm3 (1.8-7.8); Neutrophils % 56.3 % (37.0-80.0); Platelet Count 241 K/mm3 (142-424); Red Blood Count 4.37 M/mm3 (4.20-5.40); White Blood Count 8.8 K/mm3 (4.8-10.8)
[2021-05-16 19:50] LABS: Alanine Aminotransferase 28 U/L (12-78); Albumin Level 3.8 g/dl (3.5-5.0); Albumin/Globulin Ratio 1.3 (1.1-1.8); Alkaline Phosphatase 102 U/L (38-126); Anion Gap 12.8 mEq/L (5-15); Aspartate Amino Transferase 46 U/L (14-36); Bilirubin,Total 0.3 mg/dl (0.2-1.3); Blood Urea Nitrogen 43 mg/dl (7-17); Carbon Dioxide 27 mmol/L (22.0-30.0); Chloride 101 mmol/L (98-107); Chol/HDL Ratio 5.3 (1-3.5); Cholesterol 147 mg/dl (140-200); Estimated Glomerular Filt Rate 30 ml/min (>60); GFR (African American) 36 ML/MIN (>60); Globulin 2.9 g/dL (1.3-3.2); Glucose 171 mg/dl (74-100); HDL Cholesterol 28 mg/dl (40-60); Potassium 4.8 mmoL/L (3.5-5.1); Sodium 136 mmol/L (136-145); Total Protein,Serum 6.7 g/dl (6.3-8.2); Triglycerides 440 mg/dl (30-150)
[2021-05-16 20:04] LABS: Direct LDL Cholesterol < 30.00 mg/dL (100-129)
[2021-05-16 20:06] LABS: 25-OH Vitamin D, Total 38.7 ng/mL (30-100); T4 (Thyroxine) 8.8 ug/dl (5.53-11.0)
[2021-05-16 20:19] LABS: Thyroid Stimulating Hormone 0.17 uIU/mL (0.465-4.68)
== END ==
PROVIDERS: Visit Provider Nurse Practitioner Family
DX: E11.9 Type 2 diabetes mellitus without complications (principal); Z79.4 Long term (current) use of insulin; E66.3 Overweight; Z68.30 Body mass index [BMI] 30.0-30.9, adult
CPT/HCPCS: 80053; 80061; 82306; 83036; 84436; 84443; 85025

== ENCOUNTER → 2021-06-27 08:36 | Outpatient (CLI) | payer MEDICARE, OTHER, SELFPAY ==
--- NOTE | 2021-06-27 08:40 | XR_ITS ---
FINAL REPORT TECHNIQUE: Bone mineral density was calculated of the lumbar spine and hip. CLINICAL HISTORY: . post menopausal screening FINDINGS: Using the distal 3rd of the left radius, the bone mineral density of the forearm is 0.536 g/cm2, corresponding to T-score of -2.6. Using the left hip, the bone mineral density of the femoral neck is 0.633 g/cm2, corresponding to a T-score of -1.9. 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 Based on FRAX data there is a an 11% risk of major osteoporotic fracture. Reviewed, Interpreted and Dictated by Juan Moore III, MD Transcribed by Suresh Hollingsworth Authenticated by Juan Moore III, MD on 06/27/2021 11:06:03 AM [facility]
== END ==
PROVIDERS: PCP Nurse Practitioner Family; Visit Provider Internal Medicine Nephrology
DX: Z78.0 Asymptomatic menopausal state (principal)
CPT/HCPCS: 77080

== ENCOUNTER → 2021-07-10 09:57 | Outpatient (CLI) | payer MEDICARE, OTHER, SELFPAY ==
[2021-07-10 10:37] LABS: Creatinine,Urine Random 87 mg/dL (Not Estab.)
[2021-07-10 11:11] LABS: Microalbumin/Creatinine Ratio 386.6
[2021-07-10 11:15] LABS: Albumin Level 4.3 g/dl (3.5-5.0); Chloride 100 mmol/L (98-107); Potassium 4.7 mmoL/L (3.5-5.1); Sodium 139 mmol/L (136-145)
[2021-07-10 11:18] LABS: Anion Gap 14.7 mEq/L (5-15); Blood Urea Nitrogen 31 mg/dl (7-17); Carbon Dioxide 29 mmol/L (22.0-30.0); Estimated Glomerular Filt Rate 37 ml/min (>60); GFR (African American) 45 ML/MIN (>60); Phosphorous 4.2 mg/dl (2.5-4.5)
[2021-07-10 11:19] LABS: Glucose 124 mg/dl (74-100)
[2021-07-10 11:33] LABS: 25-OH Vitamin D, Total 53.8 ng/mL (30-100)
== END ==
PROVIDERS: PCP Nurse Practitioner Family; Visit Provider Internal Medicine Nephrology
DX: N18.4 Chronic kidney disease, stage 4 (severe) (principal)
CPT/HCPCS: 36415; 80069; 82043; 82306; 82570

== ENCOUNTER → 2021-07-16 10:34 | Outpatient (POV) | payer MEDICARE, OTHER, SELFPAY | PROVIDERS: Visit Provider Internal Medicine Nephrology | DX: Z00.00 Encounter for general adult medical examination without abnormal findings (principal) ==

== ENCOUNTER → 2021-07-20 16:00 | Outpatient (CLI) | payer MEDICARE, OTHER, SELFPAY ==
[2021-07-20 18:43] LABS: Hemoglobin A1C 9.8 % (4.0-6.0)
== END ==
PROVIDERS: Visit Provider Nurse Practitioner Family
DX: E10.65 Type 1 diabetes mellitus with hyperglycemia (principal); N39.0 Urinary tract infection, site not specified; B96.20 Unspecified Escherichia coli [E. coli] as the cause of diseases classified elsewhere; Z79.4 Long term (current) use of insulin
CPT/HCPCS: 83036; 87086; 87088; 87186

== ENCOUNTER → 2021-08-27 16:00 | Outpatient (CLI) | payer MEDICARE, OTHER, SELFPAY | PROVIDERS: Visit Provider Nurse Practitioner Family | DX: N39.0 Urinary tract infection, site not specified (principal) | CPT/HCPCS: 87086 ==

== ENCOUNTER 2021-09-07 16:47 | Emergency (ER) | payer MEDICARE, OTHER, SELFPAY ==
--- NOTE | 2021-09-07 16:47 | ECG_ITS ---
APPROVED REPORT Exam: Resting ECG HR:91 bpm ECG Measurements Heart Rate 91 AXES HI 177 P 58 QRSd 93 QRS 35 QT 342 T 48 QTc 391 Conclusion SINUS RHYTHM NORMAL ECG UNCONFIRMED REPORT Electronically signed by : Roman Wells MD 09/08/2021 08:16:32
[2021-09-07 16:49] VITALS: BP 164/80; PULSE 96; RESP 16; TEMP 36.8; O2SAT 98; BMI 29.2
--- NOTE | 2021-09-07 16:58 | XR_ITS ---
PROCEDURE INFORMATION: Exam: XR Chest Exam date and time: 09/07/2021 5:12 PM Age: 71 years old Clinical indication: Pain; Chest pressure; Prior surgery; Surgery type: Open heart; Additional info: Chest pain TECHNIQUE: Imaging protocol: XR of the chest. Views: 1 view. COMPARISON: [facility] CT CHEST W/O CONTRAST 04/08/2017 9:58 AM FINDINGS: Airway: Patent Lungs: Low lung volumes causes crowding of the bronchovascular structures. No acute interstitial or airspace disease. Pleural spaces: Unremarkable. No pleural effusion. No pneumothorax. Heart/Mediastinum: Heart is of normal size and morphology. Vasculature: Calcified aortic knob. Diaphragm: There is nonspecific elevation of the right hemidiaphragm. Bones/joints: Sternotomy wires and mediastinal surgical clips are present, consistent with previous coronary arterial bypass grafting. Partially visualized lower cervical spine fixation hardware without discrete complications. No acute skeletal abnormality or aggressive osseous lesion. IMPRESSION: No acute thoracic pathology.
[2021-09-07 17:00] VITALS: BP 138/80; PULSE 92; RESP 17; O2SAT 97
--- NOTE | 2021-09-07 17:21 | HMH.EDGENADL ---
ED Disposition Clinical Impression: Cervical radiculopathy, Hyperglycemia CKD (chronic kidney disease) Qualifiers: Chronic kidney disease stage: unspecified stage Qualified Code(s): N18.9 - Chronic kidney disease, unspecified Disposition: Home, Self-Care Condition on Discharge: Good Instructions: DI for Cervical Radiculopathy Additional Instructions: [place] as needed for pain. Prednisone as prescribed. Follow-up with primary care provider on Friday, call for appointment on Friday. Return to the emergency department if worsening symptoms. Prescriptions: Hydrocod/Acet 5/325 mg [[place] 5/325mg tablet] 1 tab PO Q6HP PRN #10 tab PRN Reason: Pain Transmission Status: Sent to [facility] predniSONE [Prednisone 20mg Tab] 20 mg PO BID #10 tab Transmission Status: [facility] Referrals: Roman King APRN [Primary Care Provider] - - Critical Care Critical Care Time: No Attestation: On 09/07/21, the high probability of a clinically significant, sudden or life threatening deterioration of the following system(s) required my full and direct attention, intervention and personal management. The time I documented below is in addition to time spent performing reported procedures but includes the following listed in this critical care notation. Medical Decision Making - Donald Inquiry Pt receiving controlled substance: No Vital Signs: 09/07/21 16:49 09/07/21 17:00 09/07/21 17:41 Temperature 98.2 F Temperature Source Oral Pulse Rate 92 H 92 H Pulse Rate [Radial] 96 H Respiratory Rate 16 17 14 Blood Pressure 138/80 166/75 H Blood Pressure [Right Arm] 164/80 H Blood Pressure Mean 99 105 Blood Pressure Mean [Right Arm] 108 Blood Pressure Position [Right Arm] Sitting 02 Sat by Pulse Oximetry 98 97 100 Oxygen Delivery Method Room Air 09/07/21 18:00 09/07/21 18:30 Temperature Temperature Source Pulse Rate 93 H 88 Pulse Rate [Radial] Respiratory Rate 12 15 Blood Pressure 159/80 H 153/80 H Blood Pressure [Right Arm] Blood Pressure Mean 106 104 Blood Pressure Mean [Right Arm] Blood Pressure Position [Right Arm] 02 Sat by Pulse Oximetry 96 97 Oxygen Delivery Method - Lab Data Lab Results 09/07/21 17:38: WBC 11.0 H, RBC 4.27, Hgb 12.2, Hct 39.3, MCV 92.1, MCH 28.6, MCHC 31.1 L, RDW 16.8, Plt Count 240, MPV 8.4, Neut % (Auto) 71.9, Lymph % (Auto) 17.8, [place] % (Auto) 7.0, Eos % (Auto) 2.8, Baso % (Auto) 0.4, Neut # (Auto) 7.9 H, Lymph # (Auto) 2.0, [place] # (Auto) 0.8, Eos # (Auto) 0.3, Baso # (Auto) 0.1 09/07/21 17:38: Sodium 134 L, Potassium 4.3, Chloride 100, Carbon Dioxide 26, Anion Gap 12.3, BUN 33 H, Creatinine 1.90 H, Estimated Creat Clear 28, Estimated GFR 26 L, Est GFR ( Amer) 32 L, Glucose 409 H*, Calcium 8.7, Troponin I < 0.01 09/07/21 17:38: D-Dimer 1.54 H 09/07/21 19:56: Troponin I < 0.01 Result diagrams: 09/07/21 17:38 09/07/21 17:38 Orders (Tests/Meds): ED MEDICATIONS Discontinued Medications Generic Name Dose Route Start Last Admin Trade Name Dick PRN Reason Stop Dose Admin Hydrocodone Bitart/Acetaminophen 1 tab 09/07/21 21:08 Hydrocodone/Apap 5/325 Mg Tablet PO 09/07/21 21:09 ONCE ONE Insulin Human Regular 10 unit 09/07/21 19:25 09/07/21 19:30 Insulin Human Regular 100 Units/Ml 10ml Vial IVP 09/07/21 19:26 10 unit ONCE ONE Administration Methylprednisolone Sodium Succinate 125 mg 09/07/21 21:08 Methylprednisolone Sod Succ 125mg Vial IV 09/07/21 21:09 ONCE ONE ORDERS Category Date Time Status Troponin I Q3H Lab 09/07/21 23:00 Ordered - Radiology Data #1 Image(s): Chest Image Reviewed: Yes I reviewed the patient's radiology image, Yes I have reviewed radiologist's interpretation Preliminary Findings: Normal/NAD (Chronic elevation right diaphragm, prior sternotomy) PROCEDURE INFORMATION: Exam: XR Chest Exam date and time: 09/07/2021 5:12 PM Age: 71
[2021-09-07 17:41] VITALS: BP 166/75; PULSE 92; RESP 14; O2SAT 100
[2021-09-07 17:56] LABS: Basophils # 0.1 K/mm3 (0-0.2); Basophils % 0.4 % (0.1-2.0); Eosinophils # 0.3 K/mm3 (0.0-0.4); Eosinophils % 2.8 % (0.1-12.0); Hematocrit 39.3 % (37.0-47.0); Hemoglobin 12.2 g/dL (12.2-16.2); Lymphocytes % 17.8 % (10-50); Mean Corpuscular HGB Conc 31.1 g/dL (31.8-35.4); Mean Corpuscular Hemoglobin 28.6 pg (27.0-31.2); Mean Corpuscular Volume 92.1 fl (81-99); Mean Platelet Volume 8.4 fl (7.4-10.4); Monocytes # 0.8 K/mm3 (0.1-1.0); Neutrophils # 7.9 K/mm3 (1.8-7.8); Neutrophils % 71.9 % (37.0-80.0); Platelet Count 240 K/mm3 (142-424); Red Blood Count 4.27 M/mm3 (4.20-5.40); Red Cell Distribution Width 16.8 % (11.5-17.5)
[2021-09-07 18:00] VITALS: BP 159/80; PULSE 93; RESP 12; O2SAT 96
[2021-09-07 18:01] LABS: Anion Gap 12.3 mEq/L (5-15); Blood Urea Nitrogen 33 mg/dl (7-17); Calcium 8.7 mg/dl (8.4-10.2); Carbon Dioxide 26 mmol/L (22.0-30.0); Chloride 100 mmol/L (98-107); Creatinine Clearance Estimated 28 mL/min (50-200); Estimated Glomerular Filt Rate 26 ml/min (>60); GFR (African American) 32 ML/MIN (>60); Potassium 4.3 mmoL/L (3.5-5.1); Sodium 134 mmol/L (136-145)
[2021-09-07 18:02] LABS: Glucose 409 mg/dl (74-100)
--- NOTE | 2021-09-07 18:02 | PC.NURSE ---
Lab called a critical glucose of 409
[2021-09-07 18:05] LABS: D-Dimer 1.54 ug/mL (0.0-0.5)
[2021-09-07 18:14] LABS: Troponin I < 0.01 ng/ml (0.00-0.034)
[2021-09-07 18:30] VITALS: BP 153/80; PULSE 88; RESP 15; O2SAT 97
[2021-09-07 21:01] LABS: Troponin I < 0.01 ng/ml (0.00-0.034)
[2021-09-07 21:23] VITALS: BP 144/75; PULSE 90; RESP 16; TEMP 36.8; O2SAT 97
== END 2021-09-07 21:27 | disposition home or self-care (01) ==
PROVIDERS: Emergency Provider Emergency Medicine; PCP Nurse Practitioner Family
DX: M54.12 Radiculopathy, cervical region (principal); R07.9 Chest pain, unspecified; E11.65 Type 2 diabetes mellitus with hyperglycemia; N18.9 Chronic kidney disease, unspecified; I10 Essential (primary) hypertension; K21.9 Gastro-esophageal reflux disease without esophagitis; E78.5 Hyperlipidemia, unspecified; I25.10 Atherosclerotic heart disease of native coronary artery without angina pectoris; Z79.899 Other long term (current) drug therapy
CPT/HCPCS: 36415; 71045; 80048; 84484; 85025; 85378; 93005; 96365; 99284

== ENCOUNTER → 2021-10-01 08:52 | Outpatient (CLI) | payer MEDICARE, OTHER, SELFPAY ==
[2021-10-01 20:02] LABS: MANUAL DIFFERENTIAL MANUAL DIFFERENTIAL (MANUAL DIFF)
[2021-10-01 20:23] LABS: Basophils % 0.7 % (0.1-2.0); Eosinophils # 0.4 K/mm3 (0.0-0.4); Eosinophils % 7.1 % (0.1-12.0); Hematocrit 38.8 % (37.0-47.0); Hemoglobin 12.5 g/dL (12.2-16.2); Lymphocytes # 1.7 K/mm3 (0.7-4.5); Lymphocytes % 31.7 % (10-50); Mean Corpuscular HGB Conc 32.3 g/dL (31.8-35.4); Mean Corpuscular Hemoglobin 29.3 pg (27.0-31.2); Mean Corpuscular Volume 90.5 fl (81-99); Mean Platelet Volume 9.7 fl (7.4-10.4); Monocytes # 0.6 K/mm3 (0.1-1.0); Monocytes % 10.2 % (1.7-9.3); Neutrophils # 2.7 K/mm3 (1.8-7.8); Neutrophils % 50.3 % (37.0-80.0); Platelet Count 202 K/mm3 (142-424); Red Blood Count 4.28 M/mm3 (4.20-5.40); Red Cell Distribution Width 17.4 % (11.5-17.5); White Blood Count 5.4 K/mm3 (4.8-10.8)
[2021-10-01 20:35] LABS: Hemoglobin A1C 9.7 % (4.0-6.0)
[2021-10-01 20:55] LABS: Alanine Aminotransferase 30 U/L (12-78); Albumin Level 3.4 g/dl (3.5-5.0); Albumin/Globulin Ratio 1.4 (1.1-1.8); Alkaline Phosphatase 101 U/L (38-126); Anion Gap 9.3 mEq/L (5-15); Aspartate Amino Transferase 32 U/L (14-36); Bilirubin,Total 0.5 mg/dl (0.2-1.3); Blood Urea Nitrogen 33 mg/dl (7-17); Calcium 7.7 mg/dl (8.4-10.2); Carbon Dioxide 27 mmol/L (22.0-30.0); Chloride 105 mmol/L (98-107); Estimated Glomerular Filt Rate 28 ml/min (>60); GFR (African American) 34 ML/MIN (>60); Globulin 2.4 g/dL (1.3-3.2); Glucose 237 mg/dl (74-100); Phosphorous 3.1 mg/dl (2.5-4.5); Potassium 4.3 mmoL/L (3.5-5.1); Sodium 137 mmol/L (136-145); Total Protein,Serum 5.8 g/dl (6.3-8.2)
[2021-10-01 21:26] LABS: Thyroid Stimulating Hormone 0.05 uIU/mL (0.465-4.68)
[2021-10-01 22:43] LABS: Eosinophils % 13 % (0-3); Lymphocytes % 29 % (10-50); Monocytes % 4 % (2-9); Neutrophils % 54 % (42-76); Total Cells Counted 100
[2021-10-01 22:44] LABS: Anisocytosis 1+; Platelet Estimate Normal
[2021-10-03 13:46] LABS: C-Peptide 4.7 ng/mL (1.1-4.4)
[2021-10-11 19:09] LABS: 1,25 Dihydroxy Vitamin D 13 pg/mL (.); 1,25-Dihydroxy, Vitamin D-2 <10 pg/mL (.); 1,25-Dihydroxy, Vitamin D-3 13 pg/mL (.)
== END ==
PROVIDERS: PCP Nurse Practitioner Family; Visit Provider Nurse Practitioner Family
DX: E11.65 Type 2 diabetes mellitus with hyperglycemia (principal); L08.9 Local infection of the skin and subcutaneous tissue, unspecified; Z79.4 Long term (current) use of insulin; Z68.29 Body mass index [BMI] 29.0-29.9, adult; Z79.899 Other long term (current) drug therapy
CPT/HCPCS: 80053; 80069; 82652; 83036; 84439; 84443; 84681; 85007; 85014; 85018; 85048; 85049

== ENCOUNTER → 2022-01-15 10:14 | Outpatient (CLI) | payer MEDICARE, OTHER, SELFPAY ==
[2022-01-15 11:41] LABS: Albumin Level 3.3 g/dl (3.5-5.0); Anion Gap 7.7 mEq/L (5-15); Blood Urea Nitrogen 35 mg/dl (7-17); Calcium 8.6 mg/dl (8.4-10.2); Carbon Dioxide 28 mmol/L (22.0-30.0); Chloride 104 mmol/L (98-107); Estimated Glomerular Filt Rate 26 ml/min (>60); GFR (African American) 32 ML/MIN (>60); Glucose 221 mg/dl (74-100); Phosphorous 4.2 mg/dl (2.5-4.5); Potassium 4.7 mmoL/L (3.5-5.1); Sodium 135 mmol/L (136-145)
[2022-01-15 11:51] LABS: Intact Parathyroid Hormone 83.2 pg/mL (7.5-53.5)
[2022-01-18 06:15] LABS: Tandem-R Ostase 21.9 ug/L (.)
[2022-01-20 13:08] LABS: C-Telopeptide Serum 447 pg/mL (.)
== END ==
PROVIDERS: PCP Nurse Practitioner Family; Visit Provider Internal Medicine Nephrology
DX: N18.4 Chronic kidney disease, stage 4 (severe) (principal); I12.9 Hypertensive chronic kidney disease with stage 1 through stage 4 chronic kidney disease, or unspecified chronic kidney disease; M81.0 Age-related osteoporosis without current pathological fracture
CPT/HCPCS: 36415; 80069; 82523; 83970; 84080

== ENCOUNTER → 2022-01-21 10:51 | Outpatient (POV) | payer MEDICARE, OTHER, SELFPAY | PROVIDERS: Visit Provider Internal Medicine Nephrology | DX: Z00.00 Encounter for general adult medical examination without abnormal findings (principal) ==

== ENCOUNTER → 2022-01-21 13:25 | Outpatient (CLI) | payer MEDICARE, OTHER, SELFPAY ==
--- NOTE | 2022-01-21 13:33 | XR_ITS ---
FINAL REPORT CLINICAL HISTORY: PAIN IN RIGHT HIP JOINT for 2 months FINDINGS: RIGHT HIP Two views of the right hip including an AP pelvis demonstrate no acute fracture or dislocation. There are mild degenerative changes in both hips. The visualized bony structures are well aligned. There are postoperative changes in the lower lumbar spine. No soft tissue abnormality is seen. IMPRESSION: Mild degenerative change with no acute bony abnormality. Reviewed, Interpreted and Dictated by Juan Moore III, MD Transcribed by Ros Alonzo Authenticated and . [facility]
[2022-01-21 15:14] LABS: Basophils # 0.2 K/mm3 (0-0.2); Basophils % 1.3 % (0.1-2.0); Eosinophils # 0.6 K/mm3 (0.0-0.4); Eosinophils % 4.6 % (0.1-12.0); Hematocrit 42.3 % (37.0-47.0); Hemoglobin 13.1 g/dL (12.2-16.2); Lymphocytes % 32.1 % (10-50); Mean Corpuscular Hemoglobin 27.6 pg (27.0-31.2); Mean Platelet Volume 8.2 fl (7.4-10.4); Monocytes # 0.6 K/mm3 (0.1-1.0); Monocytes % 5.1 % (1.7-9.3); Neutrophils % 56.9 % (37.0-80.0); Platelet Count 254 K/mm3 (142-424); Red Blood Count 4.75 M/mm3 (4.20-5.40); Red Cell Distribution Width 16.8 % (11.5-17.5); White Blood Count 12.3 K/mm3 (4.8-10.8)
[2022-01-21 15:47] LABS: Alanine Aminotransferase 25 U/L (12-78); Albumin Level 3.7 g/dl (3.5-5.0); Albumin/Globulin Ratio 1.3 (1.1-1.8); Alkaline Phosphatase 122 U/L (38-126); Anion Gap 9.9 mEq/L (5-15); Aspartate Amino Transferase 31 U/L (14-36); Blood Urea Nitrogen 40 mg/dl (7-17); Calcium 8.8 mg/dl (8.4-10.2); Carbon Dioxide 30 mmol/L (22.0-30.0); Chloride 99 mmol/L (98-107); Estimated Glomerular Filt Rate 26 ml/min (>60); GFR (African American) 32 ML/MIN (>60); Globulin 2.8 g/dL (1.3-3.2); Glucose 219 mg/dl (74-100); Potassium 4.9 mmoL/L (3.5-5.1); Sodium 134 mmol/L (136-145); Total Protein,Serum 6.5 g/dl (6.3-8.2)
[2022-01-21 15:53] LABS: C-Reactive Protein 3.8 mg/L (0-4)
[2022-01-21 15:55] LABS: Erythrocyte Sedimentation Rate 21 mm/hr (0-30)
[2022-01-21 16:01] LABS: Bilirubin,Total 0.1 mg/dl (0.2-1.3)
[2022-01-21 16:28] LABS: Hemoglobin A1C 9.8 % (4.0-6.0)
[2022-01-21 17:03] LABS: Folate 8.51 ng/mL; Vitamin B12 > 1000 pg/mL (239-931)
[2022-02-02 18:51] LABS: Antinuclear Antibodies (ANA) Negative
== END ==
PROVIDERS: PCP Nurse Practitioner Family; Referring Provider Nurse Practitioner Family; Visit Provider Nurse Practitioner Family
DX: H53.123 Transient visual loss, bilateral (principal); R09.89 Other specified symptoms and signs involving the circulatory and respiratory systems; E10.65 Type 1 diabetes mellitus with hyperglycemia; M25.551 Pain in right hip; Z79.4 Long term (current) use of insulin
CPT/HCPCS: 36415; 73502; 80053; 82607; 82746; 83036; 84443; 85025; 85651; 86038; 86140

== ENCOUNTER → 2022-01-29 09:24 | Outpatient (CLI) | payer MEDICARE, OTHER, SELFPAY ==
--- NOTE | 2022-01-29 09:24 | MR_ITS ---
FINAL REPORT CLINICAL HISTORY: eval posterior circulation FINDINGS: Multiple projection images of the brain arterial vasculature were obtained without contrast. The raw data images were also reviewed. There is a dominant left A1 segment and a hypoplastic right A1 segment. There is no significant narrowing. No aneurysm is seen. The basilar artery is patent. There are patent posterior communicating arteries bilaterally. IMPRESSION: No significant stenosis or aneurysm. Reviewed, Interpreted and Dictated by Sae Mai MD Transcribed by Ros Alonzo Authenticated and [facility]
--- NOTE | 2022-01-29 09:24 | MR_ITS ---
FINAL REPORT CLINICAL HISTORY: transient blindness FINDINGS: Multi planar MR imaging was obtained through the brain without contrast. There is mild abnormal signal in the deep white matter bilaterally which is probably due to chronic ischemia. The midline structures appear intact. There is no evidence of Chiari malformation. On T2 and flair axial images the brain parenchyma is homogeneous. On diffusion-weighted images there is no evidence of restricted diffusion. The visualized paranasal sinuses demonstrate normal signal voids. The seventh and eighth nerve root complexes are intact. IMPRESSION: Mild changes of chronic microvascular ischemia. Reviewed, Interpreted and Dictated by Sae Mai MD Transcribed by Ros Alonzo Authenticated and [facility]
--- NOTE | 2022-01-29 09:24 | MR_ITS ---
FINAL REPORT CLINICAL HISTORY: eval for ischemia, blindness, bruit, FINDINGS: Multiple projection images of the neck arterial vasculature were obtained without contrast. The raw data images were also reviewed. The right common carotid artery has an unremarkable appearance without evidence of stenosis or occlusion. The right internal carotid artery is patent without evidence of stenosis or occlusion. There is focal high-grade stenosis in the proximal right external carotid artery. Stenosis resides at the origin. The right vertebral artery is patent without evidence of stenosis. The left common carotid artery has an unremarkable appearance without evidence of stenosis or occlusion. The left internal carotid artery is patent. There is tortuosity seen in the proximal left internal carotid artery. The left external carotid artery is patent. There appears to be segmental narrowing of the mid left vertebral artery, high-grade. IMPRESSION: No evidence of significant internal carotid stenosis. High-grade narrowing at the origin of the right external carotid artery. High-grade segmental narrowing of the left mid vertebral artery. Reviewed, Interpreted and Dictated by Sae Mai MD Transcribed by Ros Alonzo Authenticated and [facility]
== END ==
PROVIDERS: PCP Nurse Practitioner Family; Visit Provider Nurse Practitioner Family
DX: H53.123 Transient visual loss, bilateral (principal); R09.89 Other specified symptoms and signs involving the circulatory and respiratory systems
CPT/HCPCS: 70544; 70547; 70551; 93306

== ENCOUNTER → 2022-02-05 11:06 | Outpatient (CLI) | payer MEDICARE, OTHER, SELFPAY ==
--- NOTE | 2022-02-05 11:08 | MR_ITS ---
FINAL REPORT CLINICAL HISTORY: LUMBAGO WITH SCIATICA LOWER BACK PAIN WITH LET LEG NUMBNESS LUMBAR SURGERY 2019 FINDINGS: Multiplanar MR imaging of the lumbar spine was performed without contrast. There has been fusion of L2-L5. On the sagittal T2-weighted images, disc degeneration is seen at multiple levels. There is mild retrolisthesis of L1 on L2. There is no evidence of fracture. The conus has an unremarkable appearance. L1-2: There is an annular bulge, facet arthropathy and vertebral osteophytes. There is moderate right and mild left neural foraminal narrowing. L2-3: There has been fusion at this level. There is an annular bulge, facet arthropathy and vertebral osteophytes. There is mild bilateral neural foraminal narrowing. L3-4: There has been fusion at this level. There is an annular bulge, facet arthropathy and vertebral osteophytes. There is mild right and severe left neural foraminal narrowing. L4-5: There has been fusion at this level. There is an annular bulge, facet arthropathy and vertebral osteophytes. There is moderate right and severe left neural foraminal narrowing. L5-S1: There is an annular bulge with facet arthropathy. There is severe bilateral neural foraminal narrowing. There is mild spurring of the SI joints. IMPRESSION: Multilevel degenerative disc disease with areas of neural foraminal narrowing. Fusion of L2-L5. No focal disc protrusion or significant central canal stenosis. Reviewed, Interpreted and Dictated by Juan Moore III, MD Transcribed by Suresh Hollingsworth Authenticated and . [facility]
== END ==
PROVIDERS: PCP Nurse Practitioner Family; Visit Provider Nurse Practitioner Family
DX: M54.41 Lumbago with sciatica, right side (principal)
CPT/HCPCS: 72148; 76376

== ENCOUNTER → 2022-03-22 10:31 | Outpatient (CLI) | payer MEDICARE, OTHER, SELFPAY ==
--- NOTE | 2022-03-22 10:36 | CT_ITS ---
FINAL REPORT CLINICAL HISTORY: LUMBAR RADICULOPATHY, chronic low back pain. FINDINGS: Axial imaging of the lumbar spine was obtained without contrast. Sagittal and coronal reformatted images were also obtained and reviewed.This study was performed with techniques to keep radiation doses as low as reasonably achievable (ALARA). Individualized dose reduction techniques using automated exposure control or adjustment of mA and/or kV according to the patient''s size were employed. There is no fracture. There is fusion from L2-L5. There is dextroscoliosis. There is mild retrolisthesis of L1 on 2 and mild anterolisthesis of L5 on S1. Vacuum phenomenon is seen at several levels. L1-2: An annular bulge is present. Facet arthropathy and osteophytes are present. There is severe right and mild left neural foraminal narrowing. L2-3: This level is fused. There are osteophytes with mild bilateral neural foraminal narrowing. L3-4: This level is fused. Facet arthropathy and osteophytes are present. There is mild left neural foraminal narrowing. L4-5: This level is fused. Facet arthropathy and osteophytes are present. There is mild right and moderate left neural foraminal narrowing. L5-S1: An annular bulge is present. Facet arthropathy and osteophytes are present. There is right L5 pars defect with moderate right neural foraminal narrowing. IMPRESSION: Multilevel degenerative and postoperative change as detailed above. Right L5 pars defect with moderate right neural foraminal narrowing. Reviewed, Interpreted and Dictated by Juan Moore III, MD Transcribed by Pippa Blair Authenticated and [facility]
== END ==
PROVIDERS: PCP Nurse Practitioner Family; Visit Provider Neurological Surgery
DX: M54.16 Radiculopathy, lumbar region (principal)
CPT/HCPCS: 72131

== ENCOUNTER → 2022-07-23 09:56 | Outpatient (CLI) | payer MEDICARE, OTHER, SELFPAY ==
[2022-07-23 11:29] LABS: Basophils # 0.1 K/mm3 (0-0.2); Basophils % 1.3 % (0.1-2.0); Eosinophils # 0.4 K/mm3 (0.0-0.4); Eosinophils % 3.1 % (0.1-12.0); Hematocrit 43.6 % (37.0-47.0); Hemoglobin 13.9 g/dL (12.2-16.2); Lymphocytes % 26.9 % (10-50); Mean Corpuscular HGB Conc 31.8 g/dL (31.8-35.4); Mean Corpuscular Hemoglobin 27.9 pg (27.0-31.2); Mean Corpuscular Volume 87.6 fl (81-99); Mean Platelet Volume 8.2 fl (7.4-10.4); Monocytes # 0.6 K/mm3 (0.1-1.0); Monocytes % 5.6 % (1.7-9.3); Neutrophils # 7.1 K/mm3 (1.8-7.8); Neutrophils % 63.1 % (37.0-80.0); Platelet Count 255 K/mm3 (142-424); Red Blood Count 4.98 M/mm3 (4.20-5.40); Red Cell Distribution Width 16.2 % (11.5-17.5); White Blood Count 11.3 K/mm3 (4.8-10.8)
[2022-07-23 11:31] LABS: Chloride 104 mmol/L (98-107); Potassium 4.7 mmoL/L (3.5-5.1); Sodium 139 mmol/L (136-145)
[2022-07-23 11:34] LABS: Anion Gap 12.7 mEq/L (5-15); Carbon Dioxide 27 mmol/L (22.0-30.0)
[2022-07-23 11:35] LABS: Calcium 8.6 mg/dl (8.4-10.2); Glucose 203 mg/dl (74-100); Phosphorous 5.2 mg/dl (2.5-4.5)
[2022-07-23 11:39] LABS: Blood Urea Nitrogen 27 mg/dl (7-17); Estimated Glomerular Filt Rate 34 ml/min (>60); GFR (African American) 41 ML/MIN (>60)
[2022-07-23 18:21] LABS: Creatinine,Urine Random 84 mg/dL (Not Estab.)
[2022-07-23 18:26] LABS: Microalbumin/Creatinine Ratio 157.8
== END ==
PROVIDERS: PCP Nurse Practitioner Family; Visit Provider Internal Medicine Nephrology
DX: N18.4 Chronic kidney disease, stage 4 (severe) (principal); I10 Essential (primary) hypertension; N25.0 Renal osteodystrophy; R80.1 Persistent proteinuria, unspecified
CPT/HCPCS: 36415; 80069; 82043; 82570; 85025

== ENCOUNTER → 2022-07-29 09:47 | Outpatient (POV) | payer MEDICARE, OTHER, SELFPAY | PROVIDERS: Visit Provider Internal Medicine Nephrology | DX: Z00.00 Encounter for general adult medical examination without abnormal findings (principal) ==

== ENCOUNTER → 2022-08-05 09:09 | Outpatient (CLI) | payer MEDICARE, OTHER, SELFPAY ==
[2022-08-05 11:23] LABS: Alanine Aminotransferase 19 U/L (12-78); Albumin Level 3.8 g/dl (3.5-5.0); Albumin/Globulin Ratio 1.4 (1.1-1.8); Alkaline Phosphatase 96 U/L (38-126); Anion Gap 8.6 mEq/L (5-15); Aspartate Amino Transferase 26 U/L (14-36); Bilirubin,Total 0.4 mg/dl (0.2-1.3); Blood Urea Nitrogen 29 mg/dl (7-17); Calcium 8.5 mg/dl (8.4-10.2); Carbon Dioxide 28 mmol/L (22.0-30.0); Chloride 105 mmol/L (98-107); Chol/HDL Ratio 5.1 (1-3.5); Cholesterol 167 mg/dl (140-200); Estimated Glomerular Filt Rate 34 ml/min (>60); GFR (African American) 41 ML/MIN (>60); Globulin 2.8 g/dL (1.3-3.2); Glucose 156 mg/dl (74-100); HDL Cholesterol 33 mg/dl (40-60); Potassium 4.6 mmoL/L (3.5-5.1); Sodium 137 mmol/L (136-145); Total Protein,Serum 6.6 g/dl (6.3-8.2); Triglycerides 336 mg/dl (30-150); VLDL Cholesterol 67 mg/dL (0-40)
[2022-08-05 11:37] LABS: Direct LDL Cholesterol < 30.00 mg/dL (100-129)
== END ==
PROVIDERS: Internal Medicine Cardiovascular Disease; PCP Nurse Practitioner Family
DX: I10 Essential (primary) hypertension (principal)
CPT/HCPCS: 36415; 80053; 80061

== ENCOUNTER → 2022-09-09 09:52 | Outpatient (CLI) | payer MEDICARE, OTHER, SELFPAY ==
--- NOTE | 2022-09-09 10:03 | XR_ITS ---
FINAL REPORT CLINICAL HISTORY: POST SURGERY 3 wks ago COMPARISON: 01/15/2018 FINDINGS: LUMBAR SPINE Three views were obtained. Since 2018 there has been interval posterior and interbody fusion at L2-3, L3-4 and L4-5. There is an interbody fusion graft at L5-S1. A pedicle screw at the L2 level appears fractured. There are advanced changes of degenerative disc disease at L1-2 level with prominent osteophyte posterior formation. There is no acute fracture. There is no malalignment. The disc spaces are preserved. There is no soft tissue abnormality. IMPRESSION: Interval posterior and interbody fusions at L2-3, L3-4 and L4-5. There is an interbody fusion at L5-S1. Fractured pedicle screw at L2. Advanced hypertrophic changes at L1-2. Reviewed, Interpreted and Dictated by Sae Mai MD Transcribed by Ros Alonzo Authenticated and . [facility]
== END ==
PROVIDERS: PCP Nurse Practitioner Family; Visit Provider Neurological Surgery
DX: Z48.89 Encounter for other specified surgical aftercare (principal); M54.50 Low back pain, unspecified
CPT/HCPCS: 72100

== ENCOUNTER → 2022-10-15 15:15 | Outpatient (CLI) | payer MEDICARE, OTHER, SELFPAY ==
--- NOTE | 2022-10-15 15:19 | MM_ITS ---
PROCEDURE INFORMATION: Exam: MG Bilateral Screening 3D Mammography Exam date and time: 10/15/2022 3:18 PM Age: 72 years old Clinical indication: Screening mammogram TECHNIQUE: Imaging protocol: Bilateral Screening tomosynthesis and 2D mammography including computer-aided detection (CAD) when performed. COMPARISON: 1. MG MM DIG SCREENING MAMM BI W/CAD 03/23/2021 10:55 AM 2. MG MM DIG SCREENING MAMM BI W/CAD 03/10/2020 12:59 PM 3. MG MM DIG SCREENING MAMM BI W/CAD 02/11/2019 9:57 AM 4. MG SCBI MM Dig screening mamm BI w/CAD 01/07/2018 11:09 AM FINDINGS: MAMMOGRAPHY: Breast composition: There are scattered areas of fibroglandular density. Mass: None. Architectural distortion: No new or suspicious architectural distortion. Calcifications: Stable benign-appearing calcifications are present. No new or suspicious cluster of microcalcifications have developed. Asymmetric density: No new or suspicious asymmetric density is present Skin thickening: None. Axillary adenopathy: None. IMPRESSION: No mammographic evidence of malignancy. Recommend annual screening mammography unless otherwise clinically indicated. ASSESSMENT: BI-RADS category 2: Benign
== END ==
PROVIDERS: PCP Nurse Practitioner Family; Visit Provider Nurse Practitioner Family
DX: Z12.31 Encounter for screening mammogram for malignant neoplasm of breast (principal)
CPT/HCPCS: 77063; 77067

== ENCOUNTER → 2022-10-23 10:41 | Outpatient (CLI) | payer MEDICARE, OTHER, SELFPAY ==
--- NOTE | 2022-10-23 10:49 | XR_ITS ---
FINAL REPORT CLINICAL HISTORY: FOLLOW UP FROM BACK SURGERY 8 MONTHS AGO FINDINGS: SPINE LUMBOSACRAL INCL BENDING VIEWS Four views were obtained. There is no acute fracture. There is no abnormal movement with flexion and extension maneuvers. There is fusion from L2-S1. Note is made of rightward curvature. Moderate and severe degenerative changes are identified. There is mild retrolisthesis of L2 on 3. There are multilevel laminectomies from L3-L5. One screw in the L2 vertebral body is broken. IMPRESSION: Degenerative and postsurgical changes as detailed above. Broken screw in the L2 vertebral body. Reviewed, Interpreted and Dictated by Juan Moore III, MD Transcribed by Pippa Blair Authenticated and [facility]
== END ==
PROVIDERS: PCP Nurse Practitioner Family; Visit Provider Neurological Surgery
DX: M54.50 Low back pain, unspecified (principal); Z48.89 Encounter for other specified surgical aftercare
CPT/HCPCS: 72110

== ENCOUNTER 2022-10-31 10:00 | Outpatient (RCR) | payer MEDICARE, OTHER, SELFPAY | END 2022-10-31 10:05 | disposition home or self-care (01) | LOC: PT 10:00 | PROVIDERS: PCP Nurse Practitioner Family; Visit Provider Neurological Surgery | DX: M51.27 Other intervertebral disc displacement, lumbosacral region (principal) | CPT/HCPCS: 97010; 97014; 97110; 97163; 97164; 97530; G0283 ==

== ENCOUNTER 2022-11-19 16:20 | Inpatient (IN) | payer MEDICARE, OTHER, SELFPAY ==
[2022-11-19] VITALS (7 sets, daily range): BP systolic 135–167; BP diastolic 52–90; PULSE 72–78; RESP 16–18; TEMP 36.7–36.9; O2SAT 95–96; BMI 28.6
--- NOTE | 2022-11-19 16:27 | CT_ITS ---
PROCEDURE INFORMATION: Exam: CT Head Without Contrast Exam date and time: 11/19/2022 4:36 PM Age: 72 years old Clinical indication: Stroke-like symptoms; Other: Stroke protocol TECHNIQUE: Imaging protocol: Computed tomography of the head without contrast. Radiation optimization: All CT scans at this facility use at least one of these dose optimization techniques: automated exposure control; mA and/or kV adjustment per patient size (includes targeted exams where dose is matched to clinical indication); or iterative reconstruction. Other technique: STROKE PROTOCOL was implemented. REPORTING DATA: Count of CT and Cardiac NM exams in prior 12 months: This patient has received [address] and 0 known cardiac nuclear medicine studies in the 12 months prior to the current study. 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 This appears new since the prior MRI. An MRI could be obtained for further evaluation. There is no mass effect or midline shift. Cerebral ventricles: No hydrocephalus. Paranasal sinuses: There is no acute sinusitis. Mastoid air cells: Visualized mastoid air cells are well aerated. Orbital cavities: The visualized orbits appear unremarkable. Bones/joints: No acute fracture. Soft tissues: Unremarkable. Vasculature: Atherosclerotic calcifications are seen involving the cavernous carotid arteries. 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 This appears new since the prior MRI. An MRI could be obtained for further evaluation. ASSESSMENT: ASPECTS (Isabela Stroke Program Early CT Score) is 10.
--- NOTE | 2022-11-19 16:28 | PC.NURSE ---
Alessia in radiology aware of stroke protocol
--- NOTE | 2022-11-19 16:32 | PC.NURSE ---
pt to CT via stretcher
--- NOTE | 2022-11-19 16:57 | PC.NURSE ---
[facility] ROSS speaking with jennifer
--- NOTE | 2022-11-19 17:02 | XR_ITS ---
PROCEDURE INFORMATION: Exam: XR Chest Exam date and time: 11/19/2022 5:07 PM Age: 72 years old Clinical indication: Other: CVA TECHNIQUE: Imaging protocol: Radiologic exam of the chest. Views: 1 view. COMPARISON: CR XR CHEST PORTABLE 09/07/2021 5:12 PM FINDINGS: Lungs: Unremarkable. No consolidation. Pleural spaces: No pleural effusion. No pneumothorax. Heart/Mediastinum: No significant cardiac silhouette enlargement. Diaphragm: Marked elevation of the right hemidiaphragm is present. Bones/joints: The patient is status post sternotomy. Postoperative changes are noted in the cervical spine. IMPRESSION: 1. No acute abnormality. 2. Chronic findings as discussed above.
--- NOTE | 2022-11-19 17:03 | HMH.EDGENADL ---
Discharge Plan Disposition Patient Disposition: Admitted Condition: Fair Chief Complaint: Neuro Symptoms/Deficit Prescriptions Prescriptions: No Action rosuvastatin 40 mg tablet 40 mg PO DAILY (DME) Omnipod Dash Pods (Gen 4) Cartridge See Rx Instructions .ROUTE .MEDSUPPLY Qty: 5 Rx Instructions: As directed insulin lispro 100 unit/mL cartridge 1 sliding scale dose SQ AC Rx Instructions: pt states she programs her pump based on the number of carbs she eats Please provide 12 vials, patient is running out c 9 vials due to glucose running high. Gvoke HypoPen 2-Pack 1 mg/0.2 mL auto-injector 1 mg SQ ONCE Qty: 0.4 0RF Rx Instructions: if glucose less then 50 and unable to eat or drink anything. icosapent ethyl [Vascepa] 1 gram capsule See Rx Instructions .ROUTE .COMPLEX Qty: 180 7RF Dose Instruction: TAKE 2 CAPSULES (2 GM) TWICE A DAY FOR CHOLESTEROL Rx Instructions: TAKE 2 CAPSULES (2 GM) TWICE A DAY FOR CHOLESTEROL Trulicity 0.75 mg/0.5 mL pen injector 0.75 mg SQ WEEKLY Qty: 2 3RF (DME) Omnipod Dash Pods (Gen 4) Cartridge See Rx Instructions .Route Qty: 25 2RF Rx Instructions: change every 24-72 hours pending adjustment omeprazole 40 mg capsule,delayed release(DR/EC) See Rx Instructions .ROUTE .COMPLEX Qty: 90 3RF Dose Instruction: TAKE 1 CAPSULE DAILY FOR STOMACH Rx Instructions: TAKE 1 CAPSULE DAILY FOR STOMACH allopurinol 100 MG tablet 100 mg PO DAILY carvedilol 25 mg tablet See Rx Instructions .ROUTE .COMPLEX Rx Instructions: TAKE 1 TABLET TWICE A DAY FOR HYPERTENSION venlafaxine 75 mg capsule,extended release 24hr 75 mg PO DAILY gabapentin 600 mg tablet 600 mg PO TID levothyroxine [Synthroid] 112 mcg tablet 112 mcg PO DAILY Referrals Follow up/Referrals: Roman King APRN [Primary Care Provider] - See instructions Discharge ED Provider: Josh Andrade Adult HPI General Chief complaint: Neuro Symptoms/Deficit Stated complaint: possible stroke, sent by Dr. King Time Seen by Provider: 11/19/22 16:30 Mode of Arrival: Wheelchair Source of Information: Patient and Spouse Limitations: No Limitations Description of Symptoms (Recalled from ER Triage Doc. by RN): 72 yo F presents to ED from [facility]. pt was being seen by roman king and was sent to ED for possible stroke. pt states that 11/10 she began to have high blood pressure. pt took an extra dose of medication that night and following day. pt went to eye doc on 11/15 for right eye deviation. eye doc wanted t to get head ct. pt went to pcp office today with same right eye deviation and additional symptoms. pt has been having difficulty walking, pt reports she feels like her legs are going to give out on her, and her brain is not telling her legs what to do. NIH score 1 History of Present Illness HPI narrative: This is a 72-year-old female who was sent from her primary care doctor for 8 days of elevated blood pressure. She does states she went to the eye doctor 4 days ago because her right eye deviation and a upper lid lag. Patient went to her primary care doctor again today with the above symptoms plus increased gait ataxia and was sent here. Upon arrival NIH score was performed which was 1. Patient denied chest pain pressure or lightheadedness shortness of breath weakness of the arms or legs difficulty swallowing. Related Data Home Medications Medication Instructions Recorded Confirmed allopurinol 100 mg tablet 100 mg PO DAILY uknown 04/27/18 11/19/22 rosuvastatin 40 mg tablet 40 mg PO DAILY 06/30/20 02/12/22 insulin pump cart,cont inf,BT #5 ea 09/07/21 02/12/22 (Omnipod Dash Pods (Gen 4) subcutaneous cartridge) insulin lispro 100 unit/mL 1 sliding scale dose SQ AC Diabetes 02/12/22 subcutaneous cartridge carvedilol 25 mg tablet See Rx Instructions .Route 11/19/22 11/19/22 .COMPLEX High bloo
[2022-11-19 17:11] LABS: Basophils # 0.1 K/mm3 (0-0.2); Basophils % 0.5 % (0.1-2.0); Eosinophils # 0.5 K/mm3 (0.0-0.4); Eosinophils % 4.2 % (0.1-12.0); Hematocrit 33.7 % (37.0-47.0); Hemoglobin 10.5 g/dL (12.2-16.2); Lymphocytes # 2.5 K/mm3 (0.7-4.5); Lymphocytes % 23.5 % (10-50); Mean Corpuscular HGB Conc 31.1 g/dL (31.8-35.4); Mean Corpuscular Hemoglobin 26.2 pg (27.0-31.2); Mean Corpuscular Volume 84.2 fl (81-99); Mean Platelet Volume 8.5 fl (7.4-10.4); Monocytes # 0.8 K/mm3 (0.1-1.0); Monocytes % 7.6 % (1.7-9.3); Neutrophils # 6.9 K/mm3 (1.8-7.8); Neutrophils % 64.2 % (37.0-80.0); Platelet Count 236 K/mm3 (142-424); Red Cell Distribution Width 18.7 % (11.5-17.5); White Blood Count 10.7 K/mm3 (4.8-10.8)
[2022-11-19 17:18] LABS: Activated Partial Thrombo Time 30.4 seconds (22.8-30.6); Chloride 97 mmol/L (98-107); INR 0.96 (0.9-1.1); Potassium 5.1 mmoL/L (3.5-5.1); Prothrombin Time 10.4 seconds (10.1-12.5); Sodium 133 mmol/L (136-145)
[2022-11-19 17:20] LABS: Chol/HDL Ratio 2.9 (1-3.5); Cholesterol 117 mg/dl (140-200); HDL Cholesterol 40 mg/dl (40-60); Triglycerides 280 mg/dl (30-150); VLDL Cholesterol 56 mg/dL (0-40)
--- NOTE | 2022-11-19 17:20 | ECG_ITS ---
APPROVED REPORT Exam: Resting ECG HR:73 bpm ECG Measurements Heart Rate 73 AXES MI 167 P 68 QRSd 93 QRS 52 QT 379 T 61 QTc 405 Conclusion SINUS RHYTHM NORMAL ECG UNCONFIRMED REPORT Electronically signed by : Roman Wells MD 11/19/2022 20:01:21
[2022-11-19 17:21] LABS: Alanine Aminotransferase 18 U/L (12-78); Albumin Level 3.4 g/dl (3.5-5.0); Alkaline Phosphatase 105 U/L (38-126); Anion Gap 16.1 mEq/L (5-15); Aspartate Amino Transferase 26 U/L (14-36); Bilirubin,Total 0.2 mg/dl (0.2-1.3); Blood Urea Nitrogen 41 mg/dl (7-17); Calcium 8.1 mg/dl (8.4-10.2); Carbon Dioxide 25 mmol/L (22.0-30.0); Creatinine Clearance Estimated 27 mL/min (50-200); Estimated Glomerular Filt Rate 26 ml/min (>60); GFR (African American) 31 ML/MIN (>60); Globulin 3.4 g/dL (1.3-3.2); Glucose 253 mg/dl (74-100); Total Protein,Serum 6.8 g/dl (6.3-8.2)
[2022-11-19 17:32] LABS: Direct LDL Cholesterol < 30.00 mg/dL (100-129)
--- NOTE | 2022-11-19 17:40 | PC.NURSE ---
notified [facility] of admission
[2022-11-19 17:45] LABS: Coronavirus 19, PCR Not Detected (NotDetected); Influenza A, PCR Not Detected (NotDetected); Influenza B, PCR Not Detected (NotDetected)
[2022-11-19 17:49] LABS: Troponin I < 0.01 ng/ml (0.00-0.034)
--- NOTE | 2022-11-19 18:19 | PC.NURSE ---
report called to marleen be on second floor. awaiting covid swab results pending pt transfer to second floor
--- NOTE | 2022-11-19 18:55 | PC.NURSE ---
pt to room 200 via wheelchair with SRNA
--- NOTE | 2022-11-19 19:03 | PC.NURSE ---
New patient on floor with , call light in reach.
--- NOTE | 2022-11-19 20:14 | EXP.HP ---
History of Present Illness *Admission Date: 11/19/22 *Reason for visit:: Change in vision, dizziness. *History of present illness: Ms. Robert is a 72-year-old female with a past medical history of CAD, DM, HTN and Hyperlipidemia. She presents to [facility] due to a 2-week period of change in vision on the right associated with dizziness. She reports that she went to see an Opthalmologist who was concerned for possible CVA and recommended evaluation in the ER. 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 EKG showed NSR with rate of 73. Troponin was <0.01. FLP was within normal limits. CMP showed a creatinine of 1.9 which was within patient's most recent baseline. The patient was admitted with initial impression: Left Occipital Lobe CVA. MRI has been ordered for 11/20 for evaluation. Speech, OT and PT have been consulted. [facility] Disclaimer: The information contained in this section may have been updated after the patient was seen, as this information can be updated by other users. Medical History IDDM (insulin dependent diabetes mellitus) Type 2 diabetes mellitus with hyperglycemia Surgical History History of appendectomy History of History of tonsillectomy Hx of cholecystectomy S/P right rotator cuff repair Status post cardiac surgery Family History Other Cancer Coronary artery disease Diabetes Heart attack Hypertension Kidney disease Thyroid disorder Social History Smoking Status: Never smoker alcohol intake: never substance use type: denies use current occupational status: retired Travel in the last 8 weeks: None household members: spouse housing: house lives independently: No marital status: number of children: 1 number of grandchildren: 1 caffeine: Yes Review of Systems Review of Systems Review of systems:: pertinent systems reviewed and negative unless documented below Constitutional Constitutional: Reports system reviewed and no additional complaints, except as documented Eyes Eyes: Reports blurry vision and Reports change in vision ENT Ears, Nose, Mouth, and Throat: Reports system reviewed and no additional complaints, except as documented and Reports dizziness *Cardiovascular Cardiovascular: Reports system reviewed and no additional complaints, except as documented *Respiratory Respiratory: Reports system reviewed and no additional complaints, except as documented *Gastrointestinal Gastrointestinal: Reports system reviewed and no additional complaints, except as documented *Genitourinary Genitourinary: Reports system reviewed and no additional complaints, except as documented *Musculoskeletal Musculoskeletal: Reports system reviewed and no additional complaints, except as documented Integumentary/Breasts Skin/Breast: Reports system reviewed and no additional complaints, except as documented *Neurologic Neurologic: Reports dizziness Psychiatric Psychiatric: Reports system reviewed and no additional complaints, except as documented Endocrine Endocrine: Reports system reviewed and no additional complaints, except as documented Hematologic/Lymphatic Hematologic/Lymphatic: Reports system reviewed and no additional complaints, except as documented Allergic/Immunologic Allergic/Immunologic: Reports system reviewed and no additional complaints, except as documented Meds Home Medications and Allergies Home Medications Medication Instructions Recorded Confirmed Type allopurinol 100 mg tablet 100 mg PO DAILY Gout 04/27/18 11/19/22 History rosuvastatin 40 mg tablet 40 mg PO DAILY High cholesterol 06/30/20
[2022-11-19 20:25] LABS: Troponin I < 0.01 ng/ml (0.00-0.034)
[2022-11-19 23:44] LABS: Troponin I < 0.01 ng/ml (0.00-0.034)
[2022-11-20 00:54] LABS: POC Glucose,Bedside 114 (70-110)
[2022-11-20 04:00] VITALS: BP 112/53; PULSE 82; RESP 16; TEMP 36.6; O2SAT 95; BMI 30.1
[2022-11-20 06:21] LABS: Basophils % 0.5 % (0.1-2.0); Eosinophils # 0.4 K/mm3 (0.0-0.4); Eosinophils % 4.5 % (0.1-12.0); Hematocrit 31.9 % (37.0-47.0); Hemoglobin 9.9 g/dL (12.2-16.2); Lymphocytes # 2.3 K/mm3 (0.7-4.5); Lymphocytes % 26.4 % (10-50); Mean Corpuscular HGB Conc 31.1 g/dL (31.8-35.4); Mean Corpuscular Hemoglobin 25.8 pg (27.0-31.2); Mean Corpuscular Volume 83.1 fl (81-99); Mean Platelet Volume 8.1 fl (7.4-10.4); Monocytes # 0.7 K/mm3 (0.1-1.0); Neutrophils # 5.4 K/mm3 (1.8-7.8); Neutrophils % 60.7 % (37.0-80.0); Platelet Count 227 K/mm3 (142-424); Red Blood Count 3.83 M/mm3 (4.20-5.40); Red Cell Distribution Width 18.6 % (11.5-17.5); White Blood Count 8.9 K/mm3 (4.8-10.8)
[2022-11-20 06:36] LABS: Alanine Aminotransferase 21 U/L (12-78); Albumin Level 3.3 g/dl (3.5-5.0); Albumin/Globulin Ratio 1.1 (1.1-1.8); Alkaline Phosphatase 114 U/L (38-126); Anion Gap 13.6 mEq/L (5-15); Aspartate Amino Transferase 23 U/L (14-36); Bilirubin,Total 0.2 mg/dl (0.2-1.3); Blood Urea Nitrogen 33 mg/dl (7-17); Calcium 8.1 mg/dl (8.4-10.2); Carbon Dioxide 25 mmol/L (22.0-30.0); Chloride 101 mmol/L (98-107); Creatinine Clearance Estimated 32 mL/min (50-200); Estimated Glomerular Filt Rate 30 ml/min (>60); GFR (African American) 36 ML/MIN (>60); Glucose 222 mg/dl (74-100); Potassium 4.6 mmoL/L (3.5-5.1); Sodium 135 mmol/L (136-145); Total Protein,Serum 6.3 g/dl (6.3-8.2)
[2022-11-20 08:00] VITALS: BP 122/55; PULSE 65; RESP 16; TEMP 36.9; O2SAT 92
--- NOTE | 2022-11-20 08:30 | MR_ITS ---
FINAL REPORT CLINICAL HISTORY: NEW HEMORRAGIC OCCIPITAL STROKE, RIGHT SIDE VISUAL DISTURBANCE, DOUBLE VISION. 13ML PROHANCE INJECTED COMPARISON: CT dated 11/19/2022 and MRI dated 01/29/2022 FINDINGS: Multiplanar MR imaging of the brain was performed without and with contrast. There is mild age-appropriate atrophy. Scattered foci of increased T2 signal are seen in the cerebral white matter that have a nonspecific appearance but likely represent mild chronic ischemic/gliotic changes. There is no evidence of intracranial hemorrhage or mass. No abnormal ventricular dilatation is identified. There is no evidence of shift of the midline structures. No abnormal extra-axial fluid collection is seen. No area of abnormal restricted diffusion is identified. No abnormality seen in the left occipital region at the site of the abnormality seen on CT performed prior day, may represent cortical laminar necrosis. No abnormal contrast enhancement is seen. Normal major vessel vascular flow voids are seen. IMPRESSION: Mild atrophy and chronic ischemic/gliotic changes. No acute intracranial abnormality. No abnormality seen in the left occipital region, may represent cortical laminar necrosis. Reviewed, Interpreted and Dictated by Juan Moore III, MD Transcribed by Pippa Blair Authenticated and [facility]
--- NOTE | 2022-11-20 09:09 | HMH.PHAINT1 ---
Pharmacy Intervention Comments: MEDICATION RECONCILIATION COMPLETED USING EXTERNAL FILL HISTORY FROM OUTSIDE PHARMACY AND PATIENT INTERVIEW.
--- NOTE | 2022-11-20 10:05 | HMH.OTEV ---
OT Inpatient Evaluation Rehab OT IP Evaluation Start: 11/19/22 18:01 Freq: ONCE Status: Active Protocol: Document 11/20/22 09:52 YESSENIA (Rec: 11/20/22 10:05 YESSENIA [id number]) Rehab OT IP Assessment Subjective History Ms. Robert is a 72-year-old female with a past medical history of CAD, DM, HTN and Hyperlipidemia. She presents to [facility] due to a 2- week period of change in vision on the right associated with dizziness. She reports that she went to see an Opthalmologist who was concerned for possible CVA and recommended evaluation in the ER. 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 EKG showed NSR with rate of 73. Troponin was <0.01. FLP was within normal limits. CMP showed a creatinine of 1.9 which was within patient's most recent baseline. The patient was admitted with initial impression: Left Occipital Lobe CVA. MRI has been ordered for 11/20 for evaluation. Head CTA: There is a small area of petechial hemorrhage or mineralization from prior laminar necrosis within the left occipital lobe. This appears new since the prior MRI. An MRI could be obtained for further evaluation. I can get up. Patient lives in mobile home with 2 SAMY with . Independent with all ADLs and fx'l mobility. Patient stated to have back surgery back in August with needing to use RW
[2022-11-20 11:05] LABS: POC Glucose,Bedside 99 (70-110)
[2022-11-20 11:22] VITALS: BP 133/65; PULSE 54; RESP 17; TEMP 36.6; O2SAT 92
--- NOTE | 2022-11-20 11:29 | HMH.SLDYSPHA ---
Speech & Language Evaluation Speech/Language Dysphagia Evaluation Start: 11/20/22 11:08 Freq: ONCE Status: Active Protocol: Document 11/20/22 11:08 EBEN (Rec: 11/20/22 11:29 EBEN [id number]) Dysphagia Assess/Goals/Plan Assessment Date of Evaluation: 11/20/22 Evaluation Type Initial Certification Assessment/Problems Hemorragic occipital lobe CVA. Does Patient Qualify for Service No Qualify/Failure Comment Based on the results of the clinical swallow evaluation, no further skilled ST services are warranted at this time. Recommendations PHYSICIAN CERTIFICATION: The specified therapy services are required, authorized, and reviewed every 30 days. Diet Recommendations Normal Liquid Type Recommendations Normal/Thin SL Swallow Guidelines Standard Aspiration Prec. Dysphagia Swallow Precautions/Strategies Sitting Upright (90 deg),Small Bites and Sips,Alternate Liquids/Solids Place Food on Either side of Mouth Plan Pt/Guardian verbally ack understanding Yes of dx/prognosis/goals Pt/Guardian verbally ack understanding Yes of/consent to tx prog G -code Required No Education Instructions provided CSE results and recommendations were discussed with pt, family, nursing, and care management who expressed understanding. Pt/Caregiver able to recall information Able to recall/restate Reinforcement needed No Speech & Language HPI History Present Illness Description of Patient Problem Mrs. Robert is a 72 year old female who was brought to the ER due to a hemorragic occiptial lobe stroke. PMH is significant for DM2 and IDDM. NIH score is 1. Pt is A&O x3 and is currently NPO pending speech assessment. Pt/Caregiver Concerns No swallowing concerns from pt or family. Rehab Services Assessed Speech therapy Language Primary Language [place] General Information General Current Food Consistancy NPO Dentition Good Dentition Oxygen Status Room Air Facial Symmetry Symmetrical Patient Orientation Person,Place,Time,Situation Ability to Follow Directions Excellent Communication Ability No Impairment Dysphagia:Food Presentation Evaluation Food Type Regular,Liquid Dysphagia Evaluation Summary
--- NOTE | 2022-11-20 11:30 | HMH.PTEV ---
Physical Therapy Evaluation Rehab PT IP Evaluation Start: 11/19/22 17:57 Freq: ONCE Status: Active Protocol: Document 11/20/22 09:20 PHOREBECCA (Rec: 11/20/22 11:30 PHORNE [id number]) Subjective/History History History 72 yowf adm to [facility] with ataxia and poss CVA vs TIA. She reports she lives with her spuse, 3 steps to enter the home, and she is generally independent with all mobility without AD at baseline. She reports she recently began outpatient PT for balance training due to unsteady gait prior to adm. Subjective Subjective Pt has c/o minimal double vision, but otherwise feels good. Rehab PT IP Eval Objective Appearance Patient Behavior Appropriate Patient Orientation Person,Place,Time Difficulty following instructions none Speech Pattern Clear Ambulation Patient Able to Ambulate Yes Ambulation Observation IP General Gait Pattern Observation Wide Based Gait Ambulation Distance (feet) 150 Ambulation Assistive Device None Ambulation Ability Supervision/Stand by Balance Ability to Arise Able, uses arms to help Sitting Balance Steady, safe Standing Balance Steady, wide stance Dynamic Sitting Balance Ability Good Dynamic Standing Balance Ability Fair Transfers Bed Transfer Ability Supervision/Stand by Chair Transfer Ability Supervision/Stand by Sit to Stand Bed Transfer Ability Supervision/Stand by Sit to Stand Chair Transfer Ability Supervision/Stand by ROM All Extremities PT ROM Status WFL MMT All Extremities PT MMT WFL Rehab PT IP prob,goals,plan Problems Date of Evaluation: 11/20/22 Discharge Plan PT Discharge Plan Pt currently appears appropriate to return home with spouse once medically stable for d/c. Recommend continued outpatient PT as appropriate. G -code Required No Eval Complexity Eval Charge Codes 83248 - High Complexity PHYSICIAN CERTIFICATION: I certify the specified therapy services for Jillian Robert are required, authorized, and reviewed every 30 days.
--- NOTE | 2022-11-20 13:44 | EXP.DC.SUM ---
General Admission date:: 11/19/22 Discharge date: 11/20/22 HPI HPI HPI: Ms. Robert is a 72-year-old female with a past medical history of CAD, DM, HTN and Hyperlipidemia. She presents to [facility] due to a 2-week period of change in vision on the right associated with dizziness. She reports that she went to see an Opthalmologist who was concerned for possible CVA and recommended evaluation in the ER. 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 EKG showed NSR with rate of 73. Troponin was <0.01. FLP was within normal limits. CMP showed a creatinine of 1.9 which was within patient's most recent baseline. The patient was admitted with initial impression: Left Occipital Lobe CVA. MRI has been ordered for 11/20 for evaluation. Speech, OT and PT have been consulted. Hospital Course Hospital Course Hospital Course: 72-year-old female presents with 2-week history of change in vision on the right associated with dizziness. Right eye deviates down and out. MRI obtained showing no acute stroke. At this time we have concern for 3rd nerve palsy. Patient hemodynamically stable. Stable for discharge home. Have reached out to patient's triple drum operator for close follow-up. 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 MRI obtained that showed laminar necrosis but no acute ischemic or hemorrhagic strokes. Patient's vision change has been going on for about 2 weeks. Movement is present in the right eye but deviates from binocular vision. Blood pressure better controlled during visit. Given the lack of acute stroke findings on MRI and CT, findings most concerning for a 3rd nerve palsy. Though it is not complete. Patient does have some movement however eye deviates as mentioned. Will refer back to her triple drum operator for further management. Risk factors for 3rd nerve palsy include recent episode of severe hypertension and uncontrolled diabetes. Recommend improving blood pressure control and diabetes management. PT and OT evaluated, recommend outpatient therapy. Will refer. - Diabetes Continue insulin pump. Recommend improved glucose control. Continue diabetic diet. Concern this underlies her palsy as stated above. - Hypertension Better control during hospitalization. Continue home regimen. 2 weeks outside of acute event. Goal blood pressure less than 140/90. - CKD Most recent baseline 1.5-1.9. Currently within most recent baseline range - Hyperlipidemia: Continue Vascepa and Crestor. Stable for discharge home. Follow-up with ophthalmology and PCP. Provided patient with disc of her CT and MRI. Spent 40 minutes in discharge counseling and direct care with patient. Exam Data for Last 24 hours Vital signs and Labs for Last 24 Hours: Temp Pulse Resp BP Pulse Ox 97.8 F 54 L 17 133/65 92 L 11/20/22 11:22 11/20/22 11:22 11/20/22 11:22 11/20/22 11:22 11/20/22 11:22 Laboratory Results - last 24 hr 11/19/22 16:27: Sodium 133 L, Potassium 5.1, Chloride 97 L, Carbon Dioxide 25, Anion Gap 16.1 H, BUN 41 H, Creatinine 1.90 H, Estimated Creat Clear 27, Estimated GFR 26 L, Est GFR ( Amer) 31 L, Glucose 253 H, Calcium 8.1 L, Total Bilirubin 0.2, AST 26, ALT 18, Alkaline Phosphatase 105, Troponin I < 0.01, Total Protein 6.8, Albumin 3.4 L, Globulin 3.4 H, Albumin/Globulin Ratio 1.0 L 11/19/22 16:27: WBC 10.7, RBC 4.00 L, Hgb 10.5 L, Hct 33.7 L, MCV 84.2, MCH 26.2 L, MCHC 31.1 L, RDW 18.7 H, Plt Count 236, MPV 8.5, Neut % (Auto) 64.2, Lymph % (Auto) 23.5, Tift % (Auto) 7.6, Eos % (Auto) 4.2, Baso % (Auto) 0.5, Neut # (Auto) 6.9, Lymph # (Auto) 2.5, Tift # (Auto) 0.8, Eos # (Auto) 0.5 H, Baso # (Auto) 0.1 11/19/22 16:27: PT 10.4, INR 0.96, APTT 30.4
[2022-11-20 15:19] VITALS: BP 131/64; PULSE 75; RESP 17; TEMP 36.8; O2SAT 99
--- NOTE | 2022-11-20 15:28 | HMH.PHAINT1 ---
Pharmacy Intervention Comments: Discharge medication counseling complete. There were no changes to the patient's home med list and the patient had no questions about any of her current medications.
--- NOTE | 2022-11-21 14:52 | CARE MANAGER ---
Contacted patient related to hospital discharge. She had no new medications and has made follow up appointments. She denies questions or concerns. SHERIN Moses
== END 2022-11-20 16:24 | disposition home or self-care (01) | DRG 66 ==
LOC: ER 17:44 → 2ND 17:46
PROVIDERS: Nurse Practitioner Family; Admitting Provider Internal Medicine Adolescent Medicine; Emergency Provider Emergency Medicine; PCP Nurse Practitioner Family; Visit Provider Internal Medicine Adolescent Medicine
DX: I63.9 Cerebral infarction, unspecified (principal); E11.65 Type 2 diabetes mellitus with hyperglycemia; Z79.4 Long term (current) use of insulin; Z96.41 Presence of insulin pump (external) (internal); Z79.899 Other long term (current) drug therapy; R29.701 NIHSS score 1; I12.9 Hypertensive chronic kidney disease with stage 1 through stage 4 chronic kidney disease, or unspecified chronic kidney disease; E11.22 Type 2 diabetes mellitus with diabetic chronic kidney disease; N18.9 Chronic kidney disease, unspecified; E78.5 Hyperlipidemia, unspecified
CPT/HCPCS: 36415; 70450; 70553; 71045; 80053; 80061; 82962; 84484; 85025; 85610; 85730; 87636; 92610; 93005; 97163; 97165; 97530; 99285; A9576; C9803; U0003; U0005

== ENCOUNTER 2022-12-21 22:58 | Inpatient (IN) | payer MEDICARE, OTHER, SELFPAY ==
[2022-12-21 22:59] VITALS: BP 140/74; PULSE 104; RESP 16; TEMP 37.4; O2SAT 94; BMI 28.0
--- NOTE | 2022-12-21 23:06 | ECG_ITS ---
APPROVED REPORT Exam: Resting ECG HR:108 bpm ECG Measurements Heart Rate 108 AXES MN 150 P 70 QRSd 87 QRS 68 QT 317 T 73 QTc 381 Conclusion SINUS TACHYCARDIA ABNORMAL RHYTHM ECG UNCONFIRMED REPORT Electronically signed by : Roman Wells MD 12/22/2022 06:57:45
--- NOTE | 2022-12-21 23:20 | PC.NURSE ---
Dr. Sidhu at [facility]
--- NOTE | 2022-12-21 23:25 | PC.NURSE ---
Left voicemail with [facility] to get medical records
--- NOTE | 2022-12-21 23:29 | XR_ITS ---
PROCEDURE INFORMATION: Exam: XR Pelvis Exam date and time: 12/21/2022 11:36 PM Age: 72 years old Clinical indication: Injury or trauma; Fall; Blunt trauma (contusions or hematomas); Bilateral; Pelvic region; Additional info: Weakness, r>l x2d, falls TECHNIQUE: Imaging protocol: Radiologic exam of the pelvis. Views: 1 or 2 view. COMPARISON: CR XR HIP RT 2-3V W/PELVIS 01/21/2022 1:40 PM FINDINGS: Bones/joints: Metallic hardware in the partially visualized lumbar spine and upper sacrum. The sacrum is partially obscured by overlying stool and/or bowel air. No evidence of acute fracture. Soft tissues: Unremarkable. IMPRESSION: No evidence of acute fracture. If symptoms persist, recommend repeat radiograph in 5-7 days.
--- NOTE | 2022-12-21 23:29 | CT_ITS ---
PROCEDURE INFORMATION: Exam: CT Lumbar Spine Without Contrast Exam date and time: 12/22/2022 12:26 AM Age: 72 years old Clinical indication: Injury or trauma; Fall; Additional info: Weakness, r>l x2d, falls TECHNIQUE: Imaging protocol: Computed tomography of the lumbar spine without contrast. Radiation optimization: All CT scans at this facility use at least one of these dose optimization techniques: automated exposure control; mA and/or kV adjustment per patient size (includes targeted exams where dose is matched to clinical indication); or iterative reconstruction. REPORTING DATA: Count of CT and Cardiac NM exams in prior 12 months: This patient has received 2 known CTs and 0 known cardiac nuclear medicine studies in the 12 months prior to the current study. COMPARISON: CT LUMBAR SPINE WO CON 03/22/2022 10:42 AM FINDINGS: Tubes, catheters and devices: [place] [employer] image demonstrate pacing device projecting over right hemiabdomen. Bones/joints: Stabilization metallic hardware at L2-S1. Visualized vertebral body heights are preserved. Kidneys and ureters: Mild left-sided hydroureteronephrosis with mild perinephric stranding. The distal left ureter is not in the field of view. Vasculature: Atherosclerotic calcifications. Soft tissues: Unremarkable. IMPRESSION: 1. Mild left-sided hydroureteronephrosis with mild perinephric stranding. The distal left ureter is not in the field of view. Recommend correlation with CT abdomen pelvis. 2. Visualized vertebral body heights are preserved. If symptoms persist consider further evaluation with MR if no contraindications.
--- NOTE | 2022-12-21 23:29 | CT_ITS ---
PROCEDURE INFORMATION: Exam: CT Cervical Spine Without Contrast Exam date and time: 12/22/2022 12:21 AM Age: 72 years old Clinical indication: Injury or trauma; Fall; Additional info: Weakness, r>l x2d, falls TECHNIQUE: Imaging protocol: Computed tomography of the cervical spine without contrast. Radiation optimization: All CT scans at this facility use at least one of these dose optimization techniques: automated exposure control; mA and/or kV adjustment per patient size (includes targeted exams where dose is matched to clinical indication); or iterative reconstruction. REPORTING DATA: Count of CT and Cardiac NM exams in prior 12 months: This patient has received 2 known CTs and 0 known cardiac nuclear medicine studies in the 12 months prior to the current study. COMPARISON: MR ANGIO NECK WO CON 01/29/2022 9:38 AM FINDINGS: Bones/joints: Straightening of cervical lordosis, nonspecific possibly positional or muscle spasm. Stabilization metallic hardware at C4-C6 vertebral bodies. Minimal anterolisthesis of C6 on C7. Visualized vertebral body heights are preserved. Lungs: The lung apices are grossly unremarkable. Soft tissues: See Bones/joints finding. IMPRESSION: 1. Straightening of cervical lordosis, nonspecific possibly positional or muscle spasm. If there is clinical concern for ligamentous injury this could be better evaluated with MR. 2. Visualized vertebral body heights are preserved. If symptoms persist consider further evaluation with MR if no contraindications.
--- NOTE | 2022-12-21 23:29 | CT_ITS ---
PROCEDURE INFORMATION: Exam: CT Head Without Contrast Exam date and time: 12/22/2022 12:19 AM Age: 72 years old Clinical indication: Injury or trauma; Fall; Additional info: Weakness, r>l x2d, falls TECHNIQUE: Imaging protocol: Computed tomography of the head without contrast. Total images: 265 Radiation optimization: All CT scans at this facility use at least one of these dose optimization techniques: automated exposure control; mA and/or kV adjustment per patient size (includes targeted exams where dose is matched to clinical indication); or iterative reconstruction. REPORTING DATA: Count of CT and Cardiac NM exams in prior 12 months: This patient has received 2 known CTs and 0 known cardiac nuclear medicine studies in the 12 months prior to the current study. COMPARISON: MR HEAD/BRAIN WO/W CON 11/20/2022 10:04 AM FINDINGS: Brain: No acute intracranial hemorrhage, midline shift, or mass. Mild cortical atrophy. Mild periventricular white matter hypodensity compatible with remote small vessel ischemic changes. Rivero-white interface is maintained. Basilar cisterns are preserved. Cerebral ventricles: Mild ventricular prominence compatible degree of central atrophy. Paranasal sinuses: Visualized sinuses are unremarkable. No fluid levels. Mastoid air cells: Visualized mastoid air cells are well aerated. Orbital cavities: Status post bilateral orbital lens replacement. Bones/joints: Osteopenia. No skull fracture. Soft tissues: No scalp hematoma. Vasculature: Severe calcifications bilateral intracranial internal carotid arteries. IMPRESSION: 1. No acute intracranial process. 2. Stable mild chronic findings.
--- NOTE | 2022-12-21 23:29 | CT_ITS ---
PROCEDURE INFORMATION: Exam: CT Thoracic Spine Without Contrast Exam date and time: 12/22/2022 12:23 AM Age: 72 years old Clinical indication: Injury or trauma; Fall; Additional info: Weakness, r>l x2d, falls TECHNIQUE: Imaging protocol: Computed tomography of the thoracic spine without contrast. Radiation optimization: All CT scans at this facility use at least one of these dose optimization techniques: automated exposure control; mA and/or kV adjustment per patient size (includes targeted exams where dose is matched to clinical indication); or iterative reconstruction. REPORTING DATA: Count of CT and Cardiac NM exams in prior 12 months: This patient has received 2 known CTs and 0 known cardiac nuclear medicine studies in the 12 months prior to the current study. COMPARISON: CT CERVICAL SPINE WO CON 12/22/2022 12:21 AM FINDINGS: Bones/joints: Median sternotomy. Multilevel degenerative changes. Severe degenerative changes versus less likely discitis /osteomyelitis at T10/T11 level. Visualized vertebral body heights are preserved. Soft tissues: Unremarkable. Vasculature: Atherosclerotic calcifications. Atherosclerotic calcifications. Lungs: Bibasilar probable atelectasis. Other findings: Please refer to separate CT lumbar spine report for additional findings and recommendation. IMPRESSION: 1. Severe degenerative changes versus less likely discitis /osteomyelitis at T10/T11 level. Further evaluation with MRI may be helpful 2. Visualized vertebral body heights are preserved. If symptoms persist consider further evaluation with MR if no contraindications. 3. Please refer to separate CT lumbar spine report for additional findings and recommendation.
--- NOTE | 2022-12-21 23:29 | XR_ITS ---
PROCEDURE INFORMATION: Exam: XR Chest Exam date and time: 12/21/2022 11:36 PM Age: 72 years old Clinical indication: Injury or trauma; Fall; Blunt trauma (contusions or hematomas); Additional info: Weakness, r>l x2d, falls TECHNIQUE: Imaging protocol: Radiologic exam of the chest. Views: 1 view. COMPARISON: CR XR CHEST PORTABLE 11/19/2022 5:07 PM FINDINGS: Lungs: No focal consolidation. Pleural spaces: No pleural effusion. No pneumothorax. Heart/Mediastinum: Unremarkable cardiomediastinal silhouette. Diaphragm: Persistent elevation the right hemidiaphragm. Bones/joints: Median sternotomy. Metallic plate in the cervical spine. Organs: Cholecystectomy. IMPRESSION: No focal consolidation.
[2022-12-21 23:31] VITALS: BP 132/71; PULSE 101; RESP 23; O2SAT 94
--- NOTE | 2022-12-21 23:33 | HMH.EDGENADL ---
Discharge Plan Disposition Patient Disposition: Admitted Condition: Good Clinical Impressions Clinical Impression: Acute kidney injury superimposed on chronic kidney disease, Acute hyperkalemia, Generalized muscle weakness Discharge ED Provider: Daksha Sidhu General Adult HPI General Chief complaint: Weakness Stated complaint: weak, pain all over Time Seen by Provider: 12/21/22 23:01 History of Present Illness HPI narrative: This patient is a 72-year-old female with a history of hypertension, insulin-dependent diabetes, hyperlipidemia, hypothyroidism, GERD, gastroparesis, CKD, and carotid and vertebral artery stenosis presenting to the emergency department for evaluation with generalized weakness and inability to stand. She reports that she was admitted to [facility] for approximately 6 days and has been home for a week. She states that she was admitted there with concern for possible stroke because she was having vision changes in her right eye as well as some other symptoms. She states that they took a biopsy of a vessel on the side of her face and ultimately did a lot of other testing, including CT scans and MRIs, and she states that they sent her home. She had been home for a week when she developed generalized weakness yesterday. She notes being weak all over, but especially her RUE. She has inability to hold cups in that R hand, which is new. Last known normal effectively 2 days ago. She had difficulty getting out of bed and was barely able to stand yesterday morning. She fell while in the bathroom last night, hitting her head but not losing consciousness. She was not able to get up on her own and her had to help her to bed. She denies any injuries from the fall. She takes aspirin but no other blood thinners. Today, he was unable to get up all day and took full assistance to get her here into the emergency department for evaluation. She states that her legs feel like rubber and Jell-O and she is weak all over. She also has a tremor in her right upper extremity and her right vision changes have been persistent. She denies any fevers, chills, new vision changes, new headaches, new numbness or tingling, chest pain, shortness of breath, abdominal pain, nausea, vomiting, changes in bowel movements, dysuria, polyuria, rashes, swelling, or other issues. She does note that she has had an exacerbation of chronic low back pain after pushing a grocery cart, but she denies any saddle anesthesia, incontinence, retention, or other issues. On ROS, she does note cough. Related Data Home Medications Medication Instructions Recorded Confirmed allopurinol 100 mg tablet 100 mg PO DAILY Gout 04/27/18 12/22/22 rosuvastatin 40 mg tablet 40 mg PO DAILY High cholesterol 06/30/20 12/22/22 insulin pump cart,cont inf,BT #5 ea 09/07/21 12/22/22 (Omnipod Dash Pods (Gen 4) subcutaneous cartridge) insulin lispro 100 unit/mL 1 sliding scale dose SQ AC Diabetes 02/12/22 12/22/22 subcutaneous cartridge gabapentin 600 mg tablet 600 mg PO TID Nerve pain 11/19/22 12/22/22 glucagon 1 mg/0.2 mL subcutaneous 1 mg SQ ONCE Diabetes 11/19/22 12/22/22 auto-injector (Gvoke HypoPen 2-Pack) insulin pump cartridge (Omnipod 11/19/22 12/22/22 Dash Insulin Pod) levothyroxine 112 mcg tablet 112 mcg PO DAILY Thyroid 11/19/22 12/22/22 (Synthroid) venlafaxine 75 mg capsule,extended 75 mg PO DAILY Mood 11/19/22 12/22/22 release 24 hr carvedilol 25 mg tablet 25 mg PO BID High blood pressure 11/20/22 12/22/22 cyclobenzaprine 10 mg tablet 10 mg PO TID PRN Muscle spasms 11/20/22 12/22/22 icosapent ethyl 1 gram capsule 2 g PO BID High cholesterol 11/20/22 12/22/22 omeprazole 40 mg capsule,delayed 40 mg PO DAILY Acid reflux 11/20/22 12/22/22 release Allergies Allergy/AdvReac Type Severity Reaction Status Date / Time lisinopril [LISINOPRIL] Allergy Severe S-SWELLS-OR Verified 11/19/22 18:27 AL/THROAT nitrofurantoin Allergy Int
--- NOTE | 2022-12-21 23:41 | PC.NURSE ---
RAD at [facility]
[2022-12-21 23:49] LABS: Basophils # 0.1 K/mm3 (0-0.2); Basophils % 0.4 % (0.1-2.0); Eosinophils # 0.5 K/mm3 (0.0-0.4); Eosinophils % 3.7 % (0.1-12.0); Hematocrit 36.9 % (37.0-47.0); Hemoglobin 11.5 g/dL (12.2-16.2); Lymphocytes # 1.6 K/mm3 (0.7-4.5); Lymphocytes % 11.5 % (10-50); Mean Corpuscular HGB Conc 31.1 g/dL (31.8-35.4); Mean Corpuscular Hemoglobin 25.5 pg (27.0-31.2); Mean Corpuscular Volume 82.1 fl (81-99); Mean Platelet Volume 8.4 fl (7.4-10.4); Monocytes # 0.5 K/mm3 (0.1-1.0); Monocytes % 3.2 % (1.7-9.3); Neutrophils # 11.6 K/mm3 (1.8-7.8); Neutrophils % 81.3 % (37.0-80.0); Platelet Count 373 K/mm3 (142-424); Red Cell Distribution Width 18.9 % (11.5-17.5); White Blood Count 14.3 K/mm3 (4.8-10.8)
[2022-12-21 23:51] LABS: Chloride 94 mmol/L (98-107); Sodium 133 mmol/L (136-145)
[2022-12-21 23:54] LABS: Alanine Aminotransferase 22 U/L (12-78); Albumin Level 3.7 g/dl (3.5-5.0); Alkaline Phosphatase 131 U/L (38-126); Aspartate Amino Transferase 28 U/L (14-36); Bilirubin,Total 0.5 mg/dl (0.2-1.3); Blood Urea Nitrogen 29 mg/dl (7-17); Calcium 9.3 mg/dl (8.4-10.2); Carbon Dioxide 31 mmol/L (22.0-30.0); Creatine Kinase 61 U/L (30-135); Creatinine Clearance Estimated 19 mL/min (50-200); Estimated Glomerular Filt Rate 18 ml/min (>60); GFR (African American) 22 ML/MIN (>60); Globulin 3.7 g/dL (1.3-3.2); Glucose 277 mg/dl (74-100); Total Protein,Serum 7.4 g/dl (6.3-8.2)
[2022-12-21 23:55] LABS: Magnesium 1.6 mg/dl (1.6-2.3)
[2022-12-21 23:56] LABS: INR 1.04 (0.9-1.1); Prothrombin Time 11.2 seconds (10.1-12.5)
[2022-12-22] VITALS (8 sets, daily range): BP systolic 121–156; BP diastolic 64–81; PULSE 82–100; RESP 12–20; TEMP 36.7–37.2; O2SAT 90–96; BMI 29.6
[2022-12-22 00:03] LABS: Anion Gap 13.5 mEq/L (5-15); Potassium 5.5 mmoL/L (3.5-5.1)
[2022-12-22 00:07] LABS: Appearance,Urine SL CLOUDY (Clear); Bilirubin,Urine Negative (Negative); Blood, Urine TRACE-I (Negative); Color,Urine YELLOW (Yellow); Glucose,Urine (UA) Negative (Negative); Ketones,Urine Negative (Negative); Leukocyte Esterase,Urine 1+ (Negative); Nitrate,Urine POSITIVE (Negative); PH,Urine 6.5 (5.0-8.5); Protein,Urine 1+ (Negative); Urobilinogen,Urine 0.2 EU/dl (0.2)
[2022-12-22 00:07] LABS: Troponin I < 0.01 ng/ml (0.00-0.034)
[2022-12-22 00:08] LABS: Microscopic, Urine URINE MICROSCOPIC (MICROSCOPIC)
[2022-12-22 00:19] LABS: Bacteria,Urine 4+ /lpf; RBC,Urine Occasional #/hpf (0-3); Squamous Epithelial Cell,Urine Occasional #/hpf (0-5)
[2022-12-22 00:20] LABS: Free T4 (Free Thyroxine) 1.22 ng/dl (0.78-2.19)
--- NOTE | 2022-12-22 00:46 | PC.NURSE ---
Cultures and lactic sent to lab
[2022-12-22 00:56] LABS: VBG HCO3 23.7 mmol/L (23-30); VBG Oxygen Saturation 83.7 % (50-70); VBG PCO2 38.7 mmol/L (35-51); VBG PH 7.41 mmol/L (7.31-7.41); VBG PO2 51.3 mmol/L (28-40); VBG Total CO2 24.9 mmol/L (23-27)
--- NOTE | 2022-12-22 01:01 | PC.NURSE ---
Spoke with [facility]. Advised I have worked here 8 years and never sent medical records at night. Informed him that I had a Med Info Release signed by pt that I could fax to him. Advised, I'm just really worried about this . Informed him to speak with his line service supervisor and give me a call back.
[2022-12-22 01:10] LABS: Coronavirus 19, PCR Not Detected (NotDetected); Influenza A, PCR Not Detected (NotDetected); Influenza B, PCR Not Detected (NotDetected)
--- NOTE | 2022-12-22 01:30 | CT_ITS ---
PROCEDURE INFORMATION: Exam: CT Abdomen And Pelvis Without Contrast Exam date and time: 12/22/2022 1:48 AM Age: 72 years old Clinical indication: Other: [place]; Additional info: Hydronephrosis, nawaf TECHNIQUE: Imaging protocol: Computed tomography of the abdomen and pelvis without contrast. Radiation optimization: All CT scans at this facility use at least one of these dose optimization techniques: automated exposure control; mA and/or kV adjustment per patient size (includes targeted exams where dose is matched to clinical indication); or iterative reconstruction. REPORTING DATA: Count of CT and Cardiac NM exams in prior 12 months: This patient has received 2 known CTs and 0 known cardiac nuclear medicine studies in the 12 months prior to the current study. COMPARISON: CR XR PELVIS 1-2V 12/21/2022 11:36 PM FINDINGS: Lungs: Bibasilar probable atelectasis. Liver: Heterogeneous relatively mild hepatic steatosis. Gallbladder and bile ducts: Cholecystectomy. Pancreas: No peripancreatic inflammatory changes. Spleen: No contour deforming lesion. Adrenal glands: No mass. Kidneys and ureters: No hydronephrosis on the right. Mild perinephric stranding on the left. Mild left hydroureteronephrosis to the level of mid ureter, nonspecific. Stomach and bowel: Colonic diverticulosis without evidence of acute diverticulitis. Evaluation of gastrointestinal tract is limited due to lack of oral contrast. Appendix: No evidence of appendicitis. Intraperitoneal space: No free air. No ascites. Vasculature: Atherosclerotic calcifications. Lymph nodes: No grossly enlarged lymph nodes. Urinary bladder: Diffuse thickening of the urinary bladder wall, nonspecific, cystitis is possible. Reproductive: The uterus is not seen. Bones/joints: Median sternotomy. Metallic hardware in the lumbar spine and upper sacrum. Please refer to separate CT lumbar and thoracic spine report for additional findings and recommendation including questionable discitis/osteomyelitis at T10/T11 level. Soft tissues: Evaluation of solid abdominal viscera is limited due to lack of intravenous contrast. Probable postsurgical changes in the anterior abdominal wall. IMPRESSION: 1. Evaluation of solid abdominal viscera is limited due to lack of intravenous contrast. 2. Mild perinephric stranding on the left. Mild left hydroureteronephrosis to the level of mid ureter, nonspecific. Further evaluation with CT urogram may be helpful. 3. Diffuse thickening of the urinary bladder wall, nonspecific, cystitis is possible. Correlate with UA. 4. Please refer to separate CT lumbar and thoracic spine report for additional findings and recommendation including questionable discitis/osteomyelitis at T10/T11 level.
--- NOTE | 2022-12-22 01:40 | EXP.HP ---
History of Present Illness *Admission Date: 12/22/22 *Reason for visit:: weakness *History of present illness: This patient is a 72-year-old female with a history of hypertension, insulin-dependent diabetes with neuropathy, hyperlipidemia, hypothyroidism, GERD, gastroparesis, CKD, and carotid and vertebral artery stenosis presenting to the emergency department for evaluation with generalized weakness and inability to stand. She reports that she was admitted to [facility] for approximately 6 days and has been home for a week. caroline, he was unable to get up all day and took full assistance to get her here into the emergency department for evaluation. She states that her legs feel like rubber and Jell-O and she is weak all over. She also has a tremor in her right upper extremity and her right vision changes have been persistent. She denies any fevers, chills, new vision changes, new headaches, new numbness or tingling, chest pain, shortness of breath, abdominal pain, nausea, vomiting, changes in bowel movements, dysuria, polyuria, rashes, swelling, or other issues. admitted for further management. [facility] Disclaimer: The information contained in this section may have been updated after the patient was seen, as this information can be updated by other users. Medical History Fusion of lumbar spine IDDM (insulin dependent diabetes mellitus) Type 2 diabetes mellitus with hyperglycemia Surgical History History of appendectomy History of History of tonsillectomy Hx of cholecystectomy S/P right rotator cuff repair Status post cardiac surgery Family History Other Cancer Coronary artery disease Diabetes Heart attack Hypertension Kidney disease Thyroid disorder Social History (Updated 12/22/22 @ 03:52 by Andra Mir RN) Smoking Status: Never smoker alcohol intake: never substance use type: denies use current occupational status: retired Travel in the last 8 weeks: None household members: spouse housing: house lives independently: No marital status: number of children: 1 number of grandchildren: 1 caffeine: Yes Review of Systems Review of Systems Review of systems:: pertinent systems reviewed and negative unless documented below Meds Home Medications and Allergies Home Medications Medication Instructions Recorded Confirmed Type allopurinol 100 mg tablet 100 mg PO DAILY Gout 04/27/18 12/22/22 History rosuvastatin 40 mg tablet 40 mg PO DAILY High cholesterol 06/30/20 12/22/22 History insulin lispro 100 unit/mL 1 sliding scale dose SQ AC Diabetes 02/12/22 12/22/22 History subcutaneous cartridge gabapentin 600 mg tablet 600 mg PO TID Nerve pain 11/19/22 12/22/22 History glucagon 1 mg/0.2 mL subcutaneous 1 mg SQ NEEDED PRN Diabetes 11/19/22 12/22/22 History auto-injector (Gvoke HypoPen 2-Pack) levothyroxine 112 mcg tablet 112 mcg PO DAILYDM Thyroid 11/19/22 12/22/22 History (Synthroid) venlafaxine 75 mg capsule,extended 75 mg PO DAILY Mood 11/19/22 12/22/22 History release 24 hr carvedilol 25 mg tablet 25 mg PO BID High blood pressure 11/20/22 12/22/22 History cyclobenzaprine 10 mg tablet 10 mg PO TIDP PRN Muscle spasms 11/20/22 12/22/22 History icosapent ethyl 1 gram capsule 2 g PO BID High cholesterol 11/20/22 12/22/22 History omeprazole 40 mg capsule,delayed 40 mg PO DAILY Acid reflux 11/20/22 12/22/22 History release New Prescriptions to Start Prescriptions: Allergies Allergy/AdvReac Type Severity Reaction Status Date / Time lisinopril [LISINOPRIL] Allergy Severe S-SWELLS-OR Verified 11/19/22 18:27 AL/THROAT nitrofurantoin Allergy Intermediate I-HIVES Verified 11/19/22 18:27 [NITROFURANTOIN] codeine [CODEINE] Allergy Unknown NA-NAUSEA/V Verified 11/19/22
--- NOTE | 2022-12-22 02:05 | PC.NURSE ---
attempted to call report on patient. informed to call back in 10 min due to RN being in patient room at this time.
--- NOTE | 2022-12-22 02:38 | PC.NURSE ---
Report called to SHERIN Shabazz
--- NOTE | 2022-12-22 03:27 | PC.NURSE ---
pt arrived to floor at 03:22
--- NOTE | 2022-12-22 03:49 | PC.NURSE ---
Pt has a Glucose Monitor of her L upper arm and a Omni Pod on her lower ABD.
[2022-12-22 04:02] LABS: Troponin I < 0.01 ng/ml (0.00-0.034)
--- NOTE | 2022-12-22 04:54 | PC.NURSE ---
Since chantal has been on our floor no issues have been stated by patient. She has rested in bed since arriving.
[2022-12-22 06:25] LABS: POC Glucose,Bedside 213 (70-110)
[2022-12-22 07:03] LABS: POC Glucose,Bedside 289 (70-110)
--- NOTE | 2022-12-22 07:14 | EXP.ACUTE.PN ---
Subjective *Date: 12/22/22 *Time: 14:21 Interval history: Hemodynamics with tachycardia and Tmax of 99.3 Potassium 5.5--> WBC 14.3--> Sodium 133 Creatinine 2.60--> (baseline 1.6-1.9) Patient complaining of fatigue and no energy on her legs to walk without difficulty. Fatigue levels are improving with IV fluid hydration according to the patient. Her insulin pump is an active right now Medical Exam Vital signs and Labs for Last 24 Hours: Vital Signs Temp Pulse Pulse Resp BP BP Pulse Ox 12/22/22 06:47 12/22/22 04:54 12/22/22 04:00 98.3 F 100 H 20 136/80 92 L 12/22/22 03:47 12/22/22 03:00 12/22/22 03:07 99.0 F 98 H 12 137/68 12/22/22 03:07 12/22/22 01:05 98 H 16 156/72 H 92 L 12/22/22 00:01 100 H 18 121/71 93 L 12/21/22 23:31 101 H 23 132/71 94 L 12/21/22 22:59 99.3 F 104 H 16 140/74 94 L O2 Del Method 12/22/22 06:47 Room Air 12/22/22 04:54 Room Air 12/22/22 04:00 Room Air 12/22/22 03:47 Room Air 12/22/22 03:00 Room Air 12/22/22 03:07 Room Air 12/22/22 03:07 Room Air 12/22/22 01:05 Room Air 12/22/22 00:01 Room Air 12/21/22 23:31 Room Air 12/21/22 22:59 Room Air Intake and Output 12/21/22 12/21/22 12/22/22 15:59 23:59 07:59 Output Total 300 / 300 Balance -300 / -300 Output: Output, Urine Amount 300 / 300 Other: Weight 63.049 kg 66.723 kg Patient Weight 12/22/22 23:59 Weight 66.723 kg Laboratory Results - last 24 hr 12/21/22 23:07: POC Glucose 289 H 12/21/22 23:09: WBC 14.3 H, RBC 4.50, Hgb 11.5 L, Hct 36.9 L, MCV 82.1, MCH 25.5 L, MCHC 31.1 L, RDW 18.9 H, Plt Count 373, MPV 8.4, Neut % (Auto) 81.3 H, Lymph % (Auto) 11.5, [place] % (Auto) 3.2, Eos % (Auto) 3.7, Baso % (Auto) 0.4, Neut # (Auto) 11.6 H, Lymph # (Auto) 1.6, [place] # (Auto) 0.5, Eos # (Auto) 0.5 H, Baso # (Auto) 0.1, PT 11.2, INR 1.04, Sodium 133 L, Potassium 5.5 H, Chloride 94 L, Carbon Dioxide 31 H, Anion Gap 13.5, BUN 29 H, Creatinine 2.60 H, Estimated Creat Clear 19, Estimated GFR 18 L*, Est GFR ( Amer) 22 L, Glucose 277 H, Calcium 9.3, Magnesium 1.6, Total Bilirubin 0.5, AST 28, ALT 22, Alkaline Phosphatase 131 H, Total Creatine Kinase 61, Troponin I < 0.01, Total Protein 7.4, Albumin 3.7, Globulin 3.7 H, Albumin/Globulin Ratio 1.0 L, TSH 1.50, Free T4 1.22 12/21/22 23:28: VBG pH 7.41, VBG pCO2 38.7, VBG pO2 51.3 H, VBG HCO3 23.7, VBG Total CO2 24.9, VBG O2 Saturation 83.7 H, VBG Base Excess -1.0 12/22/22 00:00: Urine Color Yellow, Urine Appearance Sl cloudy, Urine pH 6.5, Ur Specific [place] 1.010, Urine Protein 1+, Urine Glucose (UA) Negative, Urine Ketones Negative, Urine Blood Trace-i, Urine Nitrate Positive, Urine Bilirubin Negative, Urine Urobilinogen 0.2, Ur Leukocyte Esterase 1+ A, Urine RBC Occasional, Urine WBC 5-10, Ur Squamous Epith Cells Occasional, Urine Bacteria 4+ 12/22/22 01:05: SARS-CoV-2 (PCR) Not detected, Influenza A Untype (PCR) Not detected, Influenza Type B (PCR) Not detected 12/22/22 03:30: Troponin I < 0.01 12/22/22 05:55: POC Glucose 213 H I & O for Labs for Last 24 Hours: Intake & Output 12/19/22 12/20/22 12/21/22 12/22/22 23:59 23:59 23:59 23:59 Output Total 300 / 300 Balance -300 / -300 Weight 63.049 kg 66.723 kg Head: Present atraumatic and normocephalic Comment:: Mild tenderness in the right lateral aspect of the neck Respiratory: Present normal respiratory effort, able to speak in complete sentences and symmetric chest movement Cardiac: Present Reg Rate and Rhythm GI: Present soft Comments:: Flank tenderness on the right but not on the left. Rectal (female): Present deferred (female): Present deferred Comment:: No edema Skin: Present intact Neuro: Present Motor Function Intact, Sensory Function Intact, No Lateralizing Findings and oriented x 3 Comment:: Gait unsteady due to generalized weakness Assessment and Plan *Assessment and plan (1) Sepsis secondary to UTI:
--- NOTE | 2022-12-22 08:05 | PC.NURSE ---
MD Coker notified that pt meets criteria for sepsis.
[2022-12-22 09:50] LABS: Basophils # 0.1 K/mm3 (0-0.2); Basophils % 0.6 % (0.1-2.0); Eosinophils # 0.3 K/mm3 (0.0-0.4); Eosinophils % 3.2 % (0.1-12.0); Hematocrit 32.3 % (37.0-47.0); Lymphocytes # 1.9 K/mm3 (0.7-4.5); Lymphocytes % 18.1 % (10-50); Mean Corpuscular HGB Conc 29.5 g/dL (31.8-35.4); Mean Corpuscular Hemoglobin 24.5 pg (27.0-31.2); Mean Corpuscular Volume 83.1 fl (81-99); Mean Platelet Volume 7.7 fl (7.4-10.4); Monocytes # 0.5 K/mm3 (0.1-1.0); Monocytes % 5.2 % (1.7-9.3); Neutrophils # 7.6 K/mm3 (1.8-7.8); Neutrophils % 72.8 % (37.0-80.0); Platelet Count 307 K/mm3 (142-424); Red Blood Count 3.89 M/mm3 (4.20-5.40); Red Cell Distribution Width 18.9 % (11.5-17.5); White Blood Count 10.4 K/mm3 (4.8-10.8)
[2022-12-22 09:52] LABS: Hemoglobin 9.5 g/dL (12.2-16.2)
[2022-12-22 09:54] LABS: Alanine Aminotransferase 19 U/L (12-78); Albumin Level 2.9 g/dl (3.5-5.0); Alkaline Phosphatase 108 U/L (38-126); Anion Gap 11.5 mEq/L (5-15); Aspartate Amino Transferase 20 U/L (14-36); Bilirubin,Total 0.2 mg/dl (0.2-1.3); Blood Urea Nitrogen 26 mg/dl (7-17); Calcium 8.7 mg/dl (8.4-10.2); Carbon Dioxide 26 mmol/L (22.0-30.0); Chloride 101 mmol/L (98-107); Creatinine Clearance Estimated 22 mL/min (50-200); Estimated Glomerular Filt Rate 20 ml/min (>60); GFR (African American) 24 ML/MIN (>60); Globulin 2.9 g/dL (1.3-3.2); Glucose 298 mg/dl (74-100); Magnesium 1.5 mg/dl (1.6-2.3); Potassium 4.5 mmoL/L (3.5-5.1); Sodium 134 mmol/L (136-145); Total Protein,Serum 5.8 g/dl (6.3-8.2)
[2022-12-22 10:06] LABS: Troponin I < 0.01 ng/ml (0.00-0.034)
[2022-12-22 10:22] LABS: POC Glucose,Bedside 332 (70-110)
--- NOTE | 2022-12-22 10:27 | HMH.PHAINT1 ---
Pharmacy Intervention Comments: MEDICATION RECONCILIATION COMPLETE USING LIST FROM [facility] DISCHARGE (11/2022) AND EXTERNAL PHARMACY FILL HISTORY.
--- NOTE | 2022-12-22 12:13 | HMH.PTEV ---
Physical Therapy Evaluation Rehab PT IP Evaluation Start: 12/22/22 07:57 Freq: ONCE Status: Active Protocol: Document 12/22/22 12:02 ELOY (Rec: 12/22/22 12:13 ADE [id number]) Subjective/History History History Pt is a 72-year-old female that presented to [facility] ED with reports of generalized weakness and inability to stand. Pt reports that she was admitted to [facility] for approximately 6 days and has been home for a week. Pt reports that she was unable to get up and required full assistance for her to get her to the ED. Pt reported that her legs feel like rubber and she feels weak all over. Pt has a tremor in her right upper extremity and her right vision changes have been persistent. She denies any fevers, chills, new vision changes, new headaches , new numbness or tingling, chest pain, shortness of breath, abdominal pain, nausea , vomiting, changes in bowel movements, dysuria, polyuria, rashes, swelling, or other issues. Pt was admitted for further management. PMH: hypertension, insulin- dependent diabetes with neuropathy, hyperlipidemia, hypothyroidism, GERD, gastroparesis, CKD, and carotid and vertebral artery stenosis Subjective Subjective Pt presents supine in bed, pleasant and agreeable to PT initial evaluation. Pt reports that she is having some neck pain at rest. Pt reports that she lives at home with her in a [facility] with 3 SAMY. Pt reports that at baseline, she does not ambulate with an AD but that she does not drive and her assists with
[2022-12-22 13:24] LABS: POC Glucose,Bedside 435 (70-110)
[2022-12-22 17:18] LABS: POC Glucose,Bedside 343 (70-110)
--- NOTE | 2022-12-22 17:30 | PC.NURSE ---
Pt is currently up to chair eating dinner. FSBS 343 this evening which is an improvement from prior. Medication administered per aug. Pt has ambulated to BR with 1 assist. Tolerated well. Call light within reach.
[2022-12-22 21:19] LABS: POC Glucose,Bedside 299 (70-110)
[2022-12-23] VITALS: BP 144/47; PULSE 88; RESP 19; TEMP 36.9; O2SAT 91
--- NOTE | 2022-12-23 00:02 | EXP.PN ---
Subjective *Date: 12/23/22 *Time: 08:43 Interval history: No acute events overnight. She wants to go home Denies pain She lives at home with her and doesn't anticipate any needs. Exam Data for Last 24 hours Vital signs and Labs for Last 24 Hours: Temp Pulse Resp BP Pulse Ox O2 Del Method 98.5 F 82 20 127/64 92 L Room Air 12/22/22 20:00 12/22/22 20:00 12/22/22 20:00 12/22/22 20:00 12/22/22 20:00 12/22/22 23:00 Laboratory Results - last 24 hr 12/21/22 23:07: POC Glucose 289 H 12/21/22 23:09: Potassium 5.5 H, Anion Gap 13.5, Troponin I < 0.01, TSH 1.50, Free T4 1.22 12/21/22 23:28: VBG pH 7.41, VBG pCO2 38.7, VBG pO2 51.3 H, VBG HCO3 23.7, VBG Total CO2 24.9, VBG O2 Saturation 83.7 H, VBG Base Excess -1.0 12/22/22 00:00: Urine Color Yellow, Urine Appearance Sl cloudy, Urine pH 6.5, Ur Specific [place] 1.010, Urine Protein 1+, Urine Glucose (UA) Negative, Urine Ketones Negative, Urine Blood Trace-i, Urine Nitrate Positive, Urine Bilirubin Negative, Urine Urobilinogen 0.2, Ur Leukocyte Esterase 1+ A, Urine RBC Occasional, Urine WBC 5-10, Ur Squamous Epith Cells Occasional, Urine Bacteria 4+ 12/22/22 01:05: SARS-CoV-2 (PCR) Not detected, Influenza A Untype (PCR) Not detected, Influenza Type B (PCR) Not detected 12/22/22 03:30: Troponin I < 0.01 12/22/22 05:55: POC Glucose 213 H 12/22/22 09:15: WBC 10.4 D, RBC 3.89 L, Hgb 9.5 L D, Hct 32.3 L, MCV 83.1, MCH 24.5 L, MCHC 29.5 L, RDW 18.9 H, Plt Count 307, MPV 7.7, Neut % (Auto) 72.8, Lymph % (Auto) 18.1, [place] % (Auto) 5.2, Eos % (Auto) 3.2, Baso % (Auto) 0.6, Neut # (Auto) 7.6, Lymph # (Auto) 1.9, [place] # (Auto) 0.5, Eos # (Auto) 0.3, Baso # (Auto) 0.1, Sodium 134 L, Potassium 4.5, Chloride 101, Carbon Dioxide 26, Anion Gap 11.5, BUN 26 H, Creatinine 2.40 H, Estimated Creat Clear 22, Estimated GFR 20 L, Est GFR ( Amer) 24 L, Glucose 298 H, Calcium 8.7, Magnesium 1.5 L, Total Bilirubin 0.2, AST 20 D, ALT 19, Alkaline Phosphatase 108, Troponin I < 0.01, Total Protein 5.8 L, Albumin 2.9 L D, Globulin 2.9, Albumin/Globulin Ratio 1.0 L 12/22/22 10:12: POC Glucose 332 H* 12/22/22 13:16: POC Glucose 435 H* 12/22/22 16:49: POC Glucose 343 H* 12/22/22 20:46: POC Glucose 299 H I & O for Last 24 hours: Intake & Output 12/20/22 12/21/22 12/22/22 12/23/22 23:59 23:59 23:59 23:59 Intake Total 840 / 840 Output Total 301 / 301 Balance 539 / 539 Weight 63.049 kg 66.723 kg Constitutional Constitutional: no acute distress *Routine HEENT Exam Head: Present normocephalic Eye: Present EOMI and PERRL ENT: Present mucous membranes moist *Routine Neck Exam Neck: Present supple; Absent lymphadenopathy *Routine Respiratory Exam Respiratory: Present CTA bilaterally *Routine Cardiovascular Exam Cardiovascular: Present RRR *Routine Abdominal Exam Abdominal: Present soft and normoactive bowel sounds; Absent tenderness *Routine Extremities Exam Extremities: Absent cyanosis, clubbing or edema *Routine Skin Exam Skin: Present warm; Absent rash *Routine Neurological Exam Neurological: Present alert and oriented X3 Assessment and Plan *Assessment and plan (1) Sepsis secondary to UTI: Status: Acute Category: Medical Code(s): A41.9 - Sepsis, unspecified organism; N39.0 - Urinary tract infection, site not specified (2) Pyelonephritis of left kidney: Status: Acute Category: Medical Code(s): N12 - Tubulo-interstitial nephritis, not specified as acute or chronic (3) Hydronephrosis, left: Status: Acute Category: Medical Code(s): N13.30 - Unspecified hydronephrosis (4) Acute kidney injury superimposed on chronic kidney disease: Status: Acute Category: Medical Code(s): N17.9 - Acute kidney failure, unspecified; N18.9 - Chronic kidney disease, unspecified (5) Acute hyperkalemia: Status: Acute Category: Medical Code(s): E87.5 - Hyperkalemia (6) Stroke-like symptoms:
[2022-12-23 04:00] VITALS: BP 156/76; PULSE 90; RESP 20; TEMP 36.6; O2SAT 92; BMI 28.5
--- NOTE | 2022-12-23 04:45 | PC.NURSE ---
Patietn has had an okay night. Did not get to rest much. Has been up to the bathroom a couple times x1 assist. no complaints noted by patient
[2022-12-23 06:47] LABS: POC Glucose,Bedside 186 (70-110)
[2022-12-23 06:55] LABS: Basophils % 0.4 % (0.1-2.0); Eosinophils # 0.4 K/mm3 (0.0-0.4); Eosinophils % 3.8 % (0.1-12.0); Hematocrit 30.2 % (37.0-47.0); Hemoglobin 9.5 g/dL (12.2-16.2); Lymphocytes # 2.3 K/mm3 (0.7-4.5); Lymphocytes % 20.5 % (10-50); Mean Corpuscular HGB Conc 31.4 g/dL (31.8-35.4); Mean Corpuscular Hemoglobin 25.3 pg (27.0-31.2); Mean Corpuscular Volume 80.5 fl (81-99); Mean Platelet Volume 8.3 fl (7.4-10.4); Monocytes # 0.7 K/mm3 (0.1-1.0); Monocytes % 6.1 % (1.7-9.3); Neutrophils # 7.7 K/mm3 (1.8-7.8); Neutrophils % 69.2 % (37.0-80.0); Platelet Count 342 K/mm3 (142-424); Red Blood Count 3.75 M/mm3 (4.20-5.40); Red Cell Distribution Width 18.9 % (11.5-17.5); White Blood Count 11.1 K/mm3 (4.8-10.8)
[2022-12-23 07:03] LABS: Alanine Aminotransferase 16 U/L (12-78); Alkaline Phosphatase 121 U/L (38-126); Anion Gap 8.4 mEq/L (5-15); Aspartate Amino Transferase 20 U/L (14-36); Bilirubin,Total 0.2 mg/dl (0.2-1.3); Blood Urea Nitrogen 23 mg/dl (7-17); Calcium 8.4 mg/dl (8.4-10.2); Carbon Dioxide 28 mmol/L (22.0-30.0); Chloride 103 mmol/L (98-107); Creatinine Clearance Estimated 26 mL/min (50-200); Estimated Glomerular Filt Rate 24 ml/min (>60); GFR (African American) 30 ML/MIN (>60); Glucose 175 mg/dl (74-100); Potassium 4.4 mmoL/L (3.5-5.1); Sodium 135 mmol/L (136-145)
[2022-12-23 07:31] VITALS: BP 168/68; PULSE 94; RESP 18; TEMP 36.9; O2SAT 91
[2022-12-23 10:26] LABS: POC Glucose,Bedside 195 (70-110)
--- NOTE | 2022-12-23 10:27 | HMH.OTEV ---
OT Inpatient Evaluation Rehab OT IP Evaluation Start: 12/22/22 07:57 Freq: ONCE Status: Active Protocol: Document 12/23/22 10:04 DAO (Rec: 12/23/22 10:26 [facility] [id number]) Rehab OT IP Assessment Subjective History Pt is a 72-year-old female that presented to [facility] ED with reports of generalized weakness and inability to stand. Pt reports that she was admitted to [facility] for approximately 6 days and has been home for a week. Pt reports that she was unable to get up and required full assistance for her to get her to the ED. Pt reported that her legs feel like rubber and she feels weak all over. Pt has a tremor in her right upper extremity and her right vision changes have been persistent. She denies any fevers, chills, new vision changes, new headaches , new numbness or tingling, chest pain, shortness of breath, abdominal pain, nausea , vomiting, changes in bowel movements, dysuria, polyuria, rashes, swelling, or other issues. Pt was admitted for further management. PMH: hypertension, insulin- dependent diabetes with neuropathy, hyperlipidemia, hypothyroidism, GERD, gastroparesis, CKD, and carotid and vertebral artery stenosis Pt reports prior to recent hospitalizations she lived at home with her . She claims she was independent with all ADLs and IADLs. She did not require any type of AE during functional transfers/ mobility tasks. She has 3 steps to enter her home. Subjective I am ready to go home today. Objective Patient Orientation Person,Place,Birthday Upper Ext
[2022-12-23 11:46] LABS: POC Glucose,Bedside 196 (70-110)
--- NOTE | 2022-12-23 11:49 | SW/DCPLANNER ---
Addendum entered by Gisella Mckeon 12/24/22 11:18: Claudia w/ [facility] stated that services will begin tomorrow for this patient. Addendum entered by Gisella Mckeon 12/24/22 10:04: Patient information/order will be faxed to [facility] this AM. Patient will discharge home today. Original Note: I spoke with this patient regarding plans once medically stable for discharge. PT/OT evaluated patient and recommended SNF level of care but has shown improvement today. Patient and are adamant that patient will return home at discharge and not interested in placement. Patient/ are agreeable to home lucila services at time of discharge. Patient is agreeable home health w/ [facility] due to living in [facility]. Patient will not discharge till tomorrow per Dr Rowland once cultures have resulted.
[2022-12-23 12:00] VITALS: BP 165/89; PULSE 80; RESP 18; TEMP 36.8; O2SAT 94
[2022-12-23 16:00] VITALS: BP 171/80; PULSE 78; RESP 16; TEMP 36.8; O2SAT 95
[2022-12-23 16:52] LABS: POC Glucose,Bedside 204 (70-110)
--- NOTE | 2022-12-23 19:15 | PC.NURSE ---
Bedside shift report from SHERIN Valle; Patient has no needs to concerns at this time.
[2022-12-23 20:00] VITALS: BP 148/75; PULSE 78; RESP 16; TEMP 36.9; O2SAT 92
[2022-12-23 20:30] LABS: POC Glucose,Bedside 235 (70-110)
[2022-12-24] VITALS: BP 155/85; PULSE 80; RESP 18; TEMP 37.1; O2SAT 95
--- NOTE | 2022-12-24 03:25 | PC.NURSE ---
Patient had 1 20g to her left forearm which has become displaced while she was sleeping. Removed and intact. Patient requests to not have another IV placed.
[2022-12-24 04:00] VITALS: BP 168/72; PULSE 76; RESP 18; TEMP 36.6; O2SAT 91; BMI 29.6
--- NOTE | 2022-12-24 06:32 | PC.NURSE ---
Patient had an uneventful night. She was quite restless r/t her chronic pain. Medicated per AUG. Assisted to restroom several times, allowed to walk around with assist for comfort, assisted to chair at one point, but ultimately ended up back in her bed. She is resting comfortably now. No concerns or needs at this time. Patient had displaced her PIV throughout the night while sleeping. This was removed and intact; however, patient requested not to have another IV placed because she was going home this morning. Patient educated on importance of her IV.
[2022-12-24 06:42] LABS: Basophils # 0.1 K/mm3 (0-0.2); Basophils % 0.9 % (0.1-2.0); Eosinophils # 0.4 K/mm3 (0.0-0.4); Hematocrit 30.6 % (37.0-47.0); Hemoglobin 9.7 g/dL (12.2-16.2); Lymphocytes % 32.7 % (10-50); Mean Corpuscular HGB Conc 31.5 g/dL (31.8-35.4); Mean Corpuscular Hemoglobin 25.6 pg (27.0-31.2); Mean Corpuscular Volume 81.2 fl (81-99); Mean Platelet Volume 7.9 fl (7.4-10.4); Monocytes # 0.5 K/mm3 (0.1-1.0); Neutrophils # 5.3 K/mm3 (1.8-7.8); Neutrophils % 57.4 % (37.0-80.0); Platelet Count 404 K/mm3 (142-424); Red Blood Count 3.77 M/mm3 (4.20-5.40); Red Cell Distribution Width 18.9 % (11.5-17.5); White Blood Count 9.2 K/mm3 (4.8-10.8)
[2022-12-24 06:51] LABS: Anion Gap 12.2 mEq/L (5-15); Blood Urea Nitrogen 19 mg/dl (7-17); Calcium 8.3 mg/dl (8.4-10.2); Carbon Dioxide 26 mmol/L (22.0-30.0); Chloride 101 mmol/L (98-107); Creatinine Clearance Estimated 32 mL/min (50-200); Estimated Glomerular Filt Rate 30 ml/min (>60); GFR (African American) 36 ML/MIN (>60); Glucose 150 mg/dl (74-100); Potassium 4.2 mmoL/L (3.5-5.1); Sodium 135 mmol/L (136-145)
[2022-12-24 07:36] VITALS: BP 181/88; PULSE 80; RESP 18; TEMP 36.6; O2SAT 93
--- NOTE | 2022-12-24 09:00 | EXP.DC.SUM ---
General Admission date:: 12/22/22 Discharge date: 12/24/22 HPI HPI HPI: This patient is a 72-year-old female with a history of hypertension, insulin-dependent diabetes with neuropathy, hyperlipidemia, hypothyroidism, GERD, gastroparesis, CKD, and carotid and vertebral artery stenosis presenting to the emergency department for evaluation with generalized weakness and inability to stand. She reports that she was admitted to [facility] for approximately 6 days and has been home for a week. caroline, he was unable to get up all day and took full assistance to get her here into the emergency department for evaluation. She states that her legs feel like rubber and Jell-O and she is weak all over. She also has a tremor in her right upper extremity and her right vision changes have been persistent. She denies any fevers, chills, new vision changes, new headaches, new numbness or tingling, chest pain, shortness of breath, abdominal pain, nausea, vomiting, changes in bowel movements, dysuria, polyuria, rashes, swelling, or other issues. admitted for further management. Hospital Course Hospital Course Hospital Course: The patient received Rocephin x 2 days and iv fluids throughout the hospital course blood cultures were without growth at 48 hours and urine culture grew kleb pneumoniae sensitive to rocephin and levofloxacin. She was discharge on 6 days of levofloxacin The patient's symptoms resolved by the day of discharge no changes were made to her home medications she will need to f/u with her pcp in 1 week and urologist in 2 weeks for her history of recurrent UTI Exam Data for Last 24 hours Vital signs and Labs for Last 24 Hours: Temp Pulse Resp BP Pulse Ox O2 Del Method 97.8 F 80 18 181/88 H 93 L Room Air 12/24/22 07:36 12/24/22 07:36 12/24/22 07:36 12/24/22 07:36 12/24/22 07:36 12/24/22 07:36 Laboratory Results - last 24 hr 12/23/22 10:18: POC Glucose 195 H 12/23/22 11:35: POC Glucose 196 H 12/23/22 16:19: POC Glucose 204 H 12/23/22 20:22: POC Glucose 235 H 12/24/22 06:21: WBC 9.2, RBC 3.77 L, Hgb 9.7 L, Hct 30.6 L, MCV 81.2, MCH 25.6 L, MCHC 31.5 L, RDW 18.9 H, Plt Count 404, MPV 7.9, Neut % (Auto) 57.4, Lymph % (Auto) 32.7, [place] % (Auto) 5.0, Eos % (Auto) 4.0, Baso % (Auto) 0.9, Neut # (Auto) 5.3, Lymph # (Auto) 3.0, [place] # (Auto) 0.5, Eos # (Auto) 0.4, Baso # (Auto) 0.1, Sodium 135 L, Potassium 4.2, Chloride 101, Carbon Dioxide 26, Anion Gap 12.2, BUN 19 H, Creatinine 1.70 H, Estimated Creat Clear 32, Estimated GFR 30 L, Est GFR ( Amer) 36 L, Glucose 150 H, Calcium 8.3 L I & O for Last 24 hours: Intake & Output 12/21/22 12/22/22 12/23/22 12/24/22 23:59 23:59 23:59 23:59 Intake Total 840 / 840 840 / 1040 920 / 920 Output Total 301 / 301 300 / 300 600 / 600 Balance 539 / 539 540 / 740 320 / 320 Weight 63.049 kg 66.723 kg 64.183 kg 66.723 kg Microbiology Reports for the Last 24 Hours: Microbiology 12/22/22 00:00 Urine,Clean Catch Urine Culture - Final Klebsiella pneumoniae 12/22/22 00:43 Blood Blood Culture - Preliminary NO GROWTH AFTER 48 HOURS 12/22/22 00:43 Blood Blood Culture - Preliminary NO GROWTH AFTER 48 HOURS Constitutional Constitutional: no acute distress *Routine HEENT Exam Head: Present normocephalic Eye: Present EOMI and PERRL ENT: Present mucous membranes moist *Routine Neck Exam Neck: Present supple; Absent lymphadenopathy *Routine Respiratory Exam Respiratory: Present CTA bilaterally *Routine Cardiovascular Exam Cardiovascular: Present RRR *Routine Abdominal Exam Abdominal: Present soft and normoactive bowel sounds; Absent tenderness *Routine Extremities Exam Extremities: Absent cyanosis, clubbing or edema *Routine Skin Exam Skin: Present warm; Absent rash *Routine Neurological Exam Neurological: Present alert and oriented X3 Results Data Completed and Pending Lab
--- NOTE | 2022-12-24 09:13 | HMH.PHAINT1 ---
Pharmacy Intervention Comments: Patient's discharge medications discussed with patient and patient's : -Levofloxacin (take every other day, take until completion, may cause stomach and GI issues) Patient had no further questions. -Frank Buitrago, Pharm Student
--- NOTE | 2022-12-25 14:50 | CARE MANAGER ---
Called and spoke with patient regarding recent discharge. Patient stated that she is doing well, aware of appts and has started new medication prescribed at discharge. Patient voiced a couple of minor concerns , which were relayed to Jemima, local sales manager of [facility].
== END 2022-12-24 09:57 | disposition home or self-care (01) | DRG 872 ==
LOC: ER 12-22 01:15 → 2ND 12-22 02:07
PROVIDERS: Internal Medicine; Nurse Practitioner Family; Admitting Provider Internal Medicine; Emergency Provider Emergency Medicine; PCP Nurse Practitioner Family; Visit Provider Internal Medicine
DX: A41.9 Sepsis, unspecified organism (principal); N17.9 Acute kidney failure, unspecified; N13.6 Pyonephrosis; N18.9 Chronic kidney disease, unspecified; E87.5 Hyperkalemia; M62.81 Muscle weakness (generalized); E11.21 Type 2 diabetes mellitus with diabetic nephropathy; Z79.4 Long term (current) use of insulin; E78.5 Hyperlipidemia, unspecified; G89.29 Other chronic pain; K21.9 Gastro-esophageal reflux disease without esophagitis; R29.90 Unspecified symptoms and signs involving the nervous system; N28.89 Other specified disorders of kidney and ureter; E86.0 Dehydration; E11.65 Type 2 diabetes mellitus with hyperglycemia; E03.9 Hypothyroidism, unspecified; I12.9 Hypertensive chronic kidney disease with stage 1 through stage 4 chronic kidney disease, or unspecified chronic kidney disease; M54.50 Low back pain, unspecified; Z96.41 Presence of insulin pump (external) (internal); E11.22 Type 2 diabetes mellitus with diabetic chronic kidney disease; I65.29 Occlusion and stenosis of unspecified carotid artery; E11.43 Type 2 diabetes mellitus with diabetic autonomic (poly)neuropathy; K31.84 Gastroparesis
CPT/HCPCS: 36415; 70450; 71045; 72125; 72128; 72131; 72170; 74176; 80048; 80053; 81001; 82550; 82803; 82962; 83735; 84439; 84443; 84484; 85025; 85610; 87040; 87086; 87088; 87186; 87636; 93005; 97116; 97162; 97166; 97530; 99285; J0696; J2405

== ENCOUNTER 2023-01-13 11:30 | Observation (INO) | payer MEDICARE, OTHER, SELFPAY ==
[2023-01-13] VITALS (7 sets, daily range): BP systolic 125–158; BP diastolic 52–76; PULSE 70–84; RESP 12–20; TEMP 36.4–36.7; O2SAT 92–97; BMI 27.8; BMI 28.8
[2023-01-13 12:14] LABS: Basophils # 0.1 K/mm3 (0-0.2); Basophils % 1.2 % (0.1-2.0); Eosinophils # 0.6 K/mm3 (0.0-0.4); Eosinophils % 6.9 % (0.1-12.0); Hematocrit 38.2 % (37.0-47.0); Hemoglobin 11.8 g/dL (12.2-16.2); Lymphocytes # 2.2 K/mm3 (0.7-4.5); Lymphocytes % 24.1 % (10-50); Mean Corpuscular HGB Conc 30.8 g/dL (31.8-35.4); Mean Corpuscular Hemoglobin 25.5 pg (27.0-31.2); Mean Corpuscular Volume 82.7 fl (81-99); Mean Platelet Volume 8.2 fl (7.4-10.4); Monocytes # 0.5 K/mm3 (0.1-1.0); Monocytes % 5.5 % (1.7-9.3); Neutrophils # 5.6 K/mm3 (1.8-7.8); Neutrophils % 62.3 % (37.0-80.0); Platelet Count 314 K/mm3 (142-424); Red Blood Count 4.62 M/mm3 (4.20-5.40); Red Cell Distribution Width 18.7 % (11.5-17.5)
[2023-01-13 12:18] LABS: Alanine Aminotransferase 21 U/L (12-78); Albumin Level 4.4 g/dl (3.5-5.0); Albumin/Globulin Ratio 1.2 (1.1-1.8); Alkaline Phosphatase 136 U/L (38-126); Anion Gap 17.4 mEq/L (5-15); Aspartate Amino Transferase 32 U/L (14-36); Bilirubin,Total 0.3 mg/dl (0.2-1.3); Blood Urea Nitrogen 36 mg/dl (7-17); Calcium 9.1 mg/dl (8.4-10.2); Carbon Dioxide 27 mmol/L (22.0-30.0); Chloride 97 mmol/L (98-107); Estimated Glomerular Filt Rate 22 ml/min (>60); GFR (African American) 27 ML/MIN (>60); Globulin 3.7 g/dL (1.3-3.2); Glucose 291 mg/dl (74-100); Potassium 4.4 mmoL/L (3.5-5.1); Sodium 137 mmol/L (136-145); Total Protein,Serum 8.1 g/dl (6.3-8.2)
--- NOTE | 2023-01-13 12:20 | HMH.EDGENADL ---
Discharge Plan Disposition Patient Disposition: Admitted Clinical Impressions Clinical Impression: Urinary tract infection Qualifiers: Urinary tract infection type: site unspecified Hematuria presence: with hematuria Qualified Code(s): N39.0 - Urinary tract infection, site not specified Discharge ED Provider: Tomas Pierce General Adult HPI General Chief complaint: Urogenital-Female Stated complaint: low blood pressure,possible UTI Time Seen by Provider: 01/13/23 11:35 History of Present Illness HPI narrative: This is a 72-year-old female with history of hypertension, insulin-dependent diabetes with neuropathy, hyperlipidemia, hypothyroidism, GERD, gastroparesis, CKD, and carotid and vertebral artery stenosis presenting with urinary tract infection and inability to tolerate outpatient treatment. Patient states she was previously started on Keflex, this caused nausea and vomiting, was unable to tolerate this. Presented to the emergency department in December 2022 with extreme weakness, inability to tolerate performing her ADLs secondary to lower extremity weakness and diagnosed with developing urosepsis. She was discharged on 12/24, started developing symptoms of urinary tract infection 1 week prior to arrival. Was started on fluoroquinolone, results of urine culture resulted with fluoroquinolone resistant antibiotic, so started on Macrobid. Patient having vomiting and GI upset with Macrobid, so unable to tolerate this. Because of this, came to the ER for further evaluation out of concern for inability to tolerate outpatient management. Denies fevers, chills, chest pain, shortness of breath, weakness, abdominal pain, any current urinary symptoms, or any other concerns Related Data Home Medications Medication Instructions Recorded Confirmed allopurinol 100 mg tablet 100 mg PO DAILY Gout 04/27/18 12/22/22 rosuvastatin 40 mg tablet 40 mg PO DAILY High cholesterol 06/30/20 12/22/22 insulin lispro 100 unit/mL 1 sliding scale dose SQ AC Diabetes 02/12/22 12/22/22 subcutaneous cartridge gabapentin 600 mg tablet 600 mg PO TID Nerve pain 11/19/22 12/22/22 glucagon 1 mg/0.2 mL subcutaneous 1 mg SQ NEEDED PRN Diabetes 11/19/22 12/22/22 auto-injector (Gvoke HypoPen 2-Pack) levothyroxine 112 mcg tablet 112 mcg PO DAILYDM Thyroid 11/19/22 12/22/22 (Synthroid) venlafaxine 75 mg capsule,extended 75 mg PO DAILY Mood 11/19/22 12/22/22 release 24 hr carvedilol 25 mg tablet 25 mg PO BID High blood pressure 11/20/22 12/22/22 cyclobenzaprine 10 mg tablet 10 mg PO TIDP PRN Muscle spasms 11/20/22 12/22/22 icosapent ethyl 1 gram capsule 2 g PO BID High cholesterol 11/20/22 12/22/22 omeprazole 40 mg capsule,delayed 40 mg PO DAILY Acid reflux 11/20/22 12/22/22 release Previous Rx's Medication Instructions Recorded levofloxacin 750 mg tablet 750 mg PO Q48H #3 tabs 12/24/22 Allergies Allergy/AdvReac Type Severity Reaction Status Date / Time lisinopril [LISINOPRIL] Allergy Severe S-SWELLS-OR Verified 11/19/22 18:27 AL/THROAT nitrofurantoin Allergy Intermediate I-HIVES Verified 11/19/22 18:27 [NITROFURANTOIN] codeine [CODEINE] Allergy Unknown NA-NAUSEA/V Verified 11/19/22 18:27 OMITING acetaminophen [From Percocet] AdvReac Severe Hallucinati Verified 11/19/22 18:27 ng oxycodone [From Percocet] AdvReac Severe Hallucinati Verified 11/19/22 18:27 ng cephalexin [From Keflex] AdvReac Verified 12/22/22 01:01 [facility] Disclaimer: The information contained in this section may have been updated after the patient was seen, as this information can be updated by other users. Medical History Fusion of lumbar spine IDDM (insulin dependent diabetes mellitus) Type 2 diabetes mellitus with hyperglycemia Surgical History History of appendectomy History of History of tonsillectomy Hx of cholecystec
--- NOTE | 2023-01-13 14:41 | PC.NURSE ---
came from ED by w/c
--- NOTE | 2023-01-13 14:49 | PC.NURSE ---
pt educated on the need for home medications to be brought in, stated would bring them in
--- NOTE | 2023-01-13 15:22 | HMH.PHAINT1 ---
Pharmacy Intervention Comments: Home medications were verified by the patient -Jared Kurtz, PharmD student
[2023-01-13 15:27] LABS: Microscopic, Urine URINE MICROSCOPIC (MICROSCOPIC)
[2023-01-13 15:38] LABS: Appearance,Urine CLEAR (Clear); Bilirubin,Urine Negative (Negative); Blood, Urine Negative (Negative); Color,Urine YELLOW (Yellow); Glucose,Urine (UA) Negative (Negative); Ketones,Urine Negative (Negative); Leukocyte Esterase,Urine Negative (Negative); Nitrate,Urine Negative (Negative); Protein,Urine Negative (Negative); Specific Gravity, Urine <= 1.005 (1.005-1.030); Urobilinogen,Urine 0.2 EU/dl (0.2)
--- NOTE | 2023-01-13 15:49 | EXP.HP ---
History of Present Illness *Admission Date: 01/13/23 *Reason for visit:: UTI *History of present illness: Jillian Robert is a 72 year old female with a past medical history of hypertension, insulin-dependent diabetes with neuropathy, hyperlipidemia, hypothyroidism, GERD, gastroparesis, CKD, and carotid and vertebral artery stenosis. She presented to the ED after being prompted by her PCP, Roman King, after urine cultures revealed growth of e. faecalis >100k. Culture results have been placed in her chart and reveal resistance to cipro, levofloxacin and tetracycline, and sensitivity to penicillin. Workup in the ED reveals a UA with occasional wbcs. Urine and blood cultures were collected. The patient had was recently discharged from hospital around 3 weeks ago for left sided pyelonephritis; urine culture grew klebsiella pneumoniae sensitive to Rocephin and Levofloxacin; the patient received 2 days of Rocephin and was discharged with 6 days of levofloxacin. A few days after completing levofloxacin she developed generalized weakness but she never developed urinary symptoms; no dysuria, polyuria or malodorous urine. Roman King states that UA in clinic indicated an infection; she was started on Keflex but this was discontinued after 2 days because of an adverse reaction; subsequently she received 3 days of Macrobid but the patient stopped taking this after 3 days because of diarrhea. [facility] Disclaimer: The information contained in this section may have been updated after the patient was seen, as this information can be updated by other users. Medical History Fusion of lumbar spine IDDM (insulin dependent diabetes mellitus) Type 2 diabetes mellitus with hyperglycemia Surgical History History of appendectomy History of History of tonsillectomy Hx of cholecystectomy S/P right rotator cuff repair Status post cardiac surgery Family History Other Cancer Coronary artery disease Diabetes Heart attack Hypertension Kidney disease Thyroid disorder Social History Smoking Status: Never smoker alcohol intake: never substance use type: denies use current occupational status: retired Travel in the last 8 weeks: None household members: spouse housing: house lives independently: No marital status: number of children: 1 number of grandchildren: 1 caffeine: Yes Review of Systems Review of Systems Review of systems:: pertinent systems reviewed and negative unless documented below Constitutional Constitutional: Reports weakness *Neurologic Neurologic: Reports weakness Meds Home Medications and Allergies Home Medications Medication Instructions Recorded Confirmed Type allopurinol 100 mg tablet 100 mg PO DAILY Gout 04/27/18 01/13/23 History rosuvastatin 40 mg tablet 40 mg PO DAILY High cholesterol 06/30/20 01/13/23 History insulin lispro 100 unit/mL 1 sliding scale dose SQ AC Diabetes 02/12/22 01/13/23 History subcutaneous cartridge gabapentin 600 mg tablet 600 mg PO BID Nerve pain 11/19/22 01/13/23 History levothyroxine 112 mcg tablet 112 mcg PO DAILY Thyroid 11/19/22 01/13/23 History (Synthroid) venlafaxine 75 mg capsule,extended 75 mg PO DAILY Mood 11/19/22 01/13/23 History release 24 hr carvedilol 25 mg tablet 25 mg PO BID High blood pressure 11/20/22 01/13/23 History icosapent ethyl 1 gram capsule 2 g PO BID High cholesterol 11/20/22 01/13/23 History omeprazole 40 mg capsule,delayed 40 mg PO DAILY Acid reflux 11/20/22 01/13/23 History release New Prescriptions to Start Prescriptions: Allergies Allergy/AdvReac Type Severity Reaction Status Date / Time lisinopril [LISINOPRIL] Allergy Severe S-SWELLS-OR Verified 01/13/23 14:56 AL/THROAT nit
[2023-01-13 16:00] LABS: Squamous Epithelial Cell,Urine Occasional #/hpf (0-5); WBC,Urine Occasional #/hpf (0-3)
--- NOTE | 2023-01-13 16:33 | EXP.PHA.CONS ---
Pharmacy Consult Date: 01/13/23 Time: 16:33 Referring provider: DR. PALM Reason for Consult:: VANCOMYCIN Allergies Allergy/AdvReac Type Severity Reaction Status Date / Time lisinopril [LISINOPRIL] Allergy Severe S-SWELLS-OR Verified 01/13/23 14:56 AL/THROAT nitrofurantoin Allergy Intermediate I-HIVES Verified 01/13/23 14:56 [NITROFURANTOIN] codeine [CODEINE] Allergy Unknown NA-NAUSEA/V Verified 01/13/23 14:56 OMITING acetaminophen [From Percocet] AdvReac Severe Hallucinati Verified 01/13/23 14:56 ng oxycodone [From Percocet] AdvReac Severe Hallucinati Verified 01/13/23 14:56 ng cephalexin [From Keflex] AdvReac Verified 01/13/23 14:56 Home Medications Medication Instructions Recorded Confirmed Type allopurinol 100 mg tablet 100 mg PO DAILY Gout 04/27/18 01/13/23 History rosuvastatin 40 mg tablet 40 mg PO DAILY High cholesterol 06/30/20 01/13/23 History insulin lispro 100 unit/mL 1 sliding scale dose SQ AC Diabetes 02/12/22 01/13/23 History subcutaneous cartridge gabapentin 600 mg tablet 600 mg PO BID Nerve pain 11/19/22 01/13/23 History levothyroxine 112 mcg tablet 112 mcg PO DAILY Thyroid 11/19/22 01/13/23 History (Synthroid) venlafaxine 75 mg capsule,extended 75 mg PO DAILY Mood 11/19/22 01/13/23 History release 24 hr carvedilol 25 mg tablet 25 mg PO BID High blood pressure 11/20/22 01/13/23 History icosapent ethyl 1 gram capsule 2 g PO BID High cholesterol 11/20/22 01/13/23 History omeprazole 40 mg capsule,delayed 40 mg PO DAILY Acid reflux 11/20/22 01/13/23 History release New Prescriptions to Start Prescriptions: Height: 1.5 m Weight: 64.892 kg Laboratory Results:: Laboratory Results - last 24 hr 01/13/23 11:35: WBC 9.0, RBC 4.62, Hgb 11.8 L, Hct 38.2, MCV 82.7, MCH 25.5 L, MCHC 30.8 L, RDW 18.7 H, Plt Count 314, MPV 8.2, Neut % (Auto) 62.3, Lymph % (Auto) 24.1, [place] % (Auto) 5.5, Eos % (Auto) 6.9, Baso % (Auto) 1.2, Neut # (Auto) 5.6, Lymph # (Auto) 2.2, [place] # (Auto) 0.5, Eos # (Auto) 0.6 H, Baso # (Auto) 0.1, Sodium 137, Potassium 4.4, Chloride 97 L, Carbon Dioxide 27, Anion Gap 17.4 H, BUN 36 H, Creatinine 2.20 H, Estimated GFR 22 L, Est GFR ( Amer) 27 L, Glucose 291 H, Calcium 9.1, Total Bilirubin 0.3, AST 32, ALT 21, Alkaline Phosphatase 136 H, Total Protein 8.1 D, Albumin 4.4, Globulin 3.7 H, Albumin/Globulin Ratio 1.2 01/13/23 15:16: Urine Color Yellow, Urine Appearance Clear, Urine pH 6.0, Ur Specific [place] <= 1.005, Urine Protein Negative, Urine Glucose (UA) Negative, Urine Ketones Negative, Urine Blood Negative, Urine Nitrate Negative, Urine Bilirubin Negative, Urine Urobilinogen 0.2, Ur Leukocyte Esterase Negative, Urine RBC None, Urine WBC Occasional, Ur Squamous Epith Cells Occasional, Urine Bacteria None Medical History: Medical History (Updated 01/13/23 @ 12:32 by Tomas Pierce MD) Fusion of lumbar spine IDDM (insulin dependent diabetes mellitus) Type 2 diabetes mellitus with hyperglycemia Assessment and Plan Assessment and plan all Dx Assessment and Plan for all problems:: Pharmacokinetic dosing service Objective: Patient: Floor: Age: 72 yo Serum creatinine: 2.2 mg/dL Height: 59.1 Inches Weight (kg): 65 Assessment: IBW (kg): 49.25 Dosing wt(kg): 65 Estimated Creatinine clearance (ml/min): 21.1 CRCL method: Cockcroft and Gault using ibw(default). Drug selected: Vancomycin Loading dose (mg): 0 Vd (liters): 52.0 (factor used: 0.8 L/kg) Leonid (hr-1): 0.022 Half life (hrs): 31.51 Recommended dose: 1250 mg Interval: 48 hrs Infusion time (hrs): 2.0 Predicted peak (mcg/mL): 36.1 Predicted trough (mcg/mL): 13.12 Total body weight is being used for vancomycin dosing. Recommendations: Give Vancomycin 1250 mg q 48 hrs with an expected Cpeak of 36.1 mcg/ml and an expected Ctrough of 1
--- NOTE | 2023-01-13 17:27 | INFXCTL.NOTE ---
A&OX4. RESPIRATIONS REGULAR AND UNLABORED. LUNG SOUNDS CLEAR. NO COUGH NOTED. HEART RATE REGULAR. +2 PULSES NOTED THROUGHOUT. HAND OBSTETRICIAN GYNECOLOGIST EQUAL. ACTIVE BOWEL SOUNDS HEARD IN ALL 4 QUADRANTS. SOFT AND NONTENDER ABDOMEN. STATES LAST BM WAS YESTERDAY. VOIDS INDEPENDENTLY PER BATHROOM. URINE CLEAR AND LIGHT YELLOW. NO PAIN REPORTED. PT IS RECEIVING VANC CURRENTLY TOLERATING WELL THUS FAR. NS INFUSING AT 100ML/HR. NO EDEMA NOTED THROUGHOUT. PT IS ON ROOM AIR TOLERATING WELL. PT HAS BEEN UP TO CHAIR SINCE BEING ADMITTED. BED IN LOWEST POSITION. CALL LIGHT WITHIN REACH. VSS.
--- NOTE | 2023-01-13 21:50 | PC.NURSE ---
FSBS was 286, pt stated she had her pump on and had already gave herself 8 units and My doctor Ulises King said it was okay to wear my pump and said she would called the hospital doctor . I consult with GAMA, she recommended the pt removed her pumped and we managed her DM with FSBS ACHS and sliding scale. PT verbalized understand and pump was removed at 2150 8/7. sliding scale was held this evening at 2100 r/t pt already giving herself prior insulin. plan of care ongoing.
[2023-01-13 22:00] LABS: POC Glucose,Bedside 286 (70-110)
--- NOTE | 2023-01-14 01:02 | PC.NURSE ---
pt r/o request her glucose be checked. FSBS 99. no action took
[2023-01-14 01:07] LABS: POC Glucose,Bedside 99 (70-110)
[2023-01-14 03:17] LABS: POC Glucose,Bedside 115 (70-110)
[2023-01-14 04:00] VITALS: BP 165/75; PULSE 90; RESP 20; TEMP 36.9; O2SAT 96; BMI 30.2
[2023-01-14 05:17] LABS: POC Glucose,Bedside 146 (70-110)
--- NOTE | 2023-01-14 05:49 | CT_ITS ---
PROCEDURE INFORMATION: Exam: CT Abdomen And Pelvis Without Contrast Exam date and time: 01/14/2023 6:51 AM Age: 72 years old Clinical indication: Abdominal pain; Localized; Patient HX: Right CVA tenderness, UTI; Additional info: Right sided CVA tenderness TECHNIQUE: Imaging protocol: Computed tomography of the abdomen and pelvis without contrast. Radiation optimization: All CT scans at this facility use at least one of these dose optimization techniques: automated exposure control; mA and/or kV adjustment per patient size (includes targeted exams where dose is matched to clinical indication); or iterative reconstruction. REPORTING DATA: Count of CT and Cardiac NM exams in prior 12 months: This patient has received 7 known CTs and 0 known cardiac nuclear medicine studies in the 12 months prior to the current study. COMPARISON: CT ABDOMEN PELVIS WO CON 12/22/2022 1:48 AM FINDINGS: Lungs: Moderate patchy opacities in both lungs likely represent atelectasis or infection. Coronary arteries: Coronary artery calcifications are noted. Liver: Normal. No mass. Gallbladder and bile ducts: Cholecystectomy clips are seen. Pancreas: Normal. No ductal dilation. Spleen: Normal. No splenomegaly. Adrenal glands: Normal. No mass. Kidneys and ureters: Moderate hydronephrosis and hydroureter is noted in the left. Stomach and bowel: Unremarkable. No obstruction. No mucosal thickening. Appendix: No evidence of appendicitis. Intraperitoneal space: No evidence of free air in the abdomen. Vasculature: Unremarkable. No abdominal aortic aneurysm. Lymph nodes: Unremarkable. No enlarged lymph nodes. Urinary bladder: Moderate thickening of the urinary bladder wall is likely due to underdistention. Cystitis is not excluded. Reproductive: Unremarkable as visualized. Bones/joints: Postsurgical changes are seen involving the lumbar spine. Moderate spondylosis affects the thoracic and lumbar spine. Soft tissues: Unremarkable. IMPRESSION: 1. Moderate patchy opacities in both lungs likely represent atelectasis or infection. 2. Moderate hydronephrosis and hydroureter on the left is stable. 3. Moderate thickening of the urinary bladder wall is likely due to underdistention. Cystitis is not excluded.
[2023-01-14 07:05] LABS: Basophils # 0.1 K/mm3 (0-0.2); Eosinophils # 0.7 K/mm3 (0.0-0.4); Mean Platelet Volume 8.2 fl (7.4-10.4); Neutrophils # 3.3 K/mm3 (1.8-7.8); Red Cell Distribution Width 18.8 % (11.5-17.5)
[2023-01-14 07:11] LABS: Basophils % 0.9 % (0.1-2.0); Eosinophils % 10.5 % (0.1-12.0); Hematocrit 33.2 % (37.0-47.0); Lymphocytes # 2.1 K/mm3 (0.7-4.5); Mean Corpuscular HGB Conc 31.4 g/dL (31.8-35.4); Mean Corpuscular Hemoglobin 25.9 pg (27.0-31.2); Mean Corpuscular Volume 82.6 fl (81-99); Monocytes # 0.3 K/mm3 (0.1-1.0); Monocytes % 5.2 % (1.7-9.3); Neutrophils % 51.4 % (37.0-80.0); Platelet Count 261 K/mm3 (142-424); Red Blood Count 4.02 M/mm3 (4.20-5.40); White Blood Count 6.4 K/mm3 (4.8-10.8)
[2023-01-14 07:13] LABS: Anion Gap 14.6 mEq/L (5-15); Blood Urea Nitrogen 30 mg/dl (7-17); Calcium 7.8 mg/dl (8.4-10.2); Carbon Dioxide 22 mmol/L (22.0-30.0); Chloride 108 mmol/L (98-107); Creatinine Clearance Estimated 29 mL/min (50-200); Estimated Glomerular Filt Rate 26 ml/min (>60); GFR (African American) 31 ML/MIN (>60); Glucose 169 mg/dl (74-100); Potassium 4.6 mmoL/L (3.5-5.1); Sodium 140 mmol/L (136-145)
[2023-01-14 07:20] LABS: Hemoglobin 10.4 g/dL (12.2-16.2)
[2023-01-14 08:00] VITALS: BP 143/64; PULSE 88; RESP 17; TEMP 36.7; O2SAT 93; O2SAT 97
[2023-01-14 10:31] LABS: POC Glucose,Bedside 314 (70-110)
--- NOTE | 2023-01-14 14:54 | EXP.DC.SUM ---
General Admission date:: 01/13/23 Discharge date: 01/14/23 HPI HPI HPI: Jillian Robert is a 72 year old female with a past medical history of hypertension, insulin-dependent diabetes with neuropathy, hyperlipidemia, hypothyroidism, GERD, gastroparesis, CKD, and carotid and vertebral artery stenosis. She presented to the ED after being prompted by her PCP, Roman King, after urine cultures revealed growth of e. faecalis >100k. Culture results have been placed in her chart and reveal resistance to cipro, levofloxacin and tetracycline, and sensitivity to penicillin. Workup in the ED reveals a UA with occasional wbcs. Urine and blood cultures were collected. The patient had was recently discharged from hospital around 3 weeks ago for left sided pyelonephritis; urine culture grew klebsiella pneumoniae sensitive to Rocephin and Levofloxacin; the patient received 2 days of Rocephin and was discharged with 6 days of levofloxacin. A few days after completing levofloxacin she developed generalized weakness but she never developed urinary symptoms; no dysuria, polyuria or malodorous urine. Roman King states that UA in clinic indicated an infection; she was started on Keflex but this was discontinued after 2 days because of an adverse reaction; subsequently she received 3 days of Macrobid but the patient stopped taking this after 3 days because of diarrhea. Hospital Course Hospital Course Hospital Course: 72-year-old female with failure of outpatient therapy for UTI. Cultures found to be positive for E faecalis. Was started on amoxicillin on admission. Has had improvement in her symptoms. Tolerating p.o. intake with defervescent's of symptoms. Stable for discharge home to complete antibiotic course. Recommend close follow-up with PCP. Problems addressed as follows: #acute uti, e. faecalis #recurrent UTI #CKD #htn #t2dm #hypothyroidism The patient received a dose of Zosyn in the ED. given sensitivity profile of culture which was added to patient's paper chart, will transition to oral amoxicillin. Has done well since transitioning to this. Will complete 7 days total of antibiotics. CT of abdomen was obtained, no obstructing stones. Findings consistent however with stable moderate hydronephrosis and hydroureter on the left. Also noted to have moderate thickening of the urinary bladder wall that is likely due to underdistention. Given hydronephrosis and hydroureter that is not new but longstanding, would benefit from referral to urology as an outpatient for further evaluation and management. At this time she is afebrile, has normal labs with normal white count of 6.4. Kidney function improved to Cr 1.9 (more or less her baseline). Continued home medication for thyroid. Treated with sliding scale insulin during admission. Resume home OmniPod and darrion for monitoring at discharge. Stable for discharge home with close follow-up with her PCP. Questions answered. at bedside on discharge, both stated understanding and comfort with plan. Exam Data for Last 24 hours Vital signs and Labs for Last 24 Hours: Temp Pulse Resp BP Pulse Ox O2 Del Method 98.1 F 88 17 143/64 H 97 Room Air 01/14/23 08:00 01/14/23 08:00 01/14/23 08:00 01/14/23 08:00 01/14/23 08:00 01/14/23 13:41 Laboratory Results - last 24 hr 01/13/23 15:16: Urine Color Yellow, Urine Appearance Clear, Urine pH 6.0, Ur Specific [place] <= 1.005, Urine Protein Negative, Urine Glucose (UA) Negative, Urine Ketones Negative, Urine Blood Negative, Urine Nitrate Negative, Urine Bilirubin Negative, Urine Urobilinogen 0.2, Ur Leukocyte Esterase Negative, Urine RBC None, Urine WBC Occasional, Ur Squamous Epith Cells Occasional, Urine Bacteria None 01/13/23 20:36: POC Glucose 286 H 01/14/23 01:00: POC Glucose 99 01/14/23 03:10: POC Glucose 115 H 01/14/23 05:04: POC Glucose 146 H 01/14/23 06:29: WBC 6.4 D, RBC 4.02 L, Hgb 10.4 L D, Hct 33.2 L, MCV 82.6, MCH 25.9 L, MCHC 31.4
[2023-01-14 14:59] VITALS: BMI 30.2
--- NOTE | 2023-01-14 15:16 | HMH.PHAINT1 ---
Pharmacy Intervention Comments: DISCHARGE MEDICATION COUNSELING COMPLETED. DISCUSSED THE AMOXIL (ANTIBIOTIC, EVERY 8 HOURS, START TONIGHT, TAKE WITH FOOD OR SMALL SNACK, UPSET STOMACH N/V/D POSSIBLE). PATIENT VERBALIZED NO QUESTIONS AT THIS TIME.
--- NOTE | 2023-01-15 13:10 | CARE MANAGER ---
Spoke with patient for post-discharge phone interview, no issues noted.
== END 2023-01-14 16:10 | disposition home or self-care (01) ==
LOC: ER 12:32 → 2ND 13:44
PROVIDERS: Admitting Provider Internal Medicine; Emergency Provider Emergency Medicine; PCP Nurse Practitioner Family; Visit Provider Internal Medicine
DX: N39.0 Urinary tract infection, site not specified (principal); R31.9 Hematuria, unspecified; E78.5 Hyperlipidemia, unspecified; I15.1 Hypertension secondary to other renal disorders; N28.89 Other specified disorders of kidney and ureter; Z79.4 Long term (current) use of insulin; E03.9 Hypothyroidism, unspecified; Z79.899 Other long term (current) drug therapy; E11.22 Type 2 diabetes mellitus with diabetic chronic kidney disease
CPT/HCPCS: G0378; 36415; 74176; 80048; 80053; 81001; 82962; 85025; 87040; 87086; 99285; J2543

== ENCOUNTER → 2023-01-20 09:16 | Outpatient (CLI) | payer MEDICARE, OTHER, SELFPAY ==
[2023-01-20 10:00] LABS: Basophils # 0.1 K/mm3 (0-0.2); Basophils % 0.9 % (0.1-2.0); Eosinophils # 0.7 K/mm3 (0.0-0.4); Eosinophils % 7.3 % (0.1-12.0); Hemoglobin 11.4 g/dL (12.2-16.2); Lymphocytes # 2.8 K/mm3 (0.7-4.5); Lymphocytes % 31.6 % (10-50); Mean Corpuscular HGB Conc 31.5 g/dL (31.8-35.4); Mean Corpuscular Hemoglobin 25.8 pg (27.0-31.2); Mean Corpuscular Volume 81.8 fl (81-99); Mean Platelet Volume 8.3 fl (7.4-10.4); Monocytes # 0.4 K/mm3 (0.1-1.0); Neutrophils % 55.2 % (37.0-80.0); Platelet Count 206 K/mm3 (142-424); Red Blood Count 4.41 M/mm3 (4.20-5.40)
[2023-01-20 10:30] LABS: Creatinine,Urine Random 122 mg/dL (Not Estab.)
[2023-01-20 10:35] LABS: Albumin Level 3.9 g/dl (3.5-5.0); Anion Gap 14.7 mEq/L (5-15); Blood Urea Nitrogen 26 mg/dl (7-17); Calcium 8.4 mg/dl (8.4-10.2); Carbon Dioxide 26 mmol/L (22.0-30.0); Chloride 103 mmol/L (98-107); Estimated Glomerular Filt Rate 32 ml/min (>60); GFR (African American) 38 ML/MIN (>60); Glucose 225 mg/dl (74-100); Phosphorous 4.7 mg/dl (2.5-4.5); Potassium 4.7 mmoL/L (3.5-5.1); Sodium 139 mmol/L (136-145)
[2023-01-20 10:55] LABS: 25-OH Vitamin D, Total 25.9 ng/mL (30-100)
== END ==
PROVIDERS: PCP Nurse Practitioner Family; Visit Provider Internal Medicine Nephrology
DX: N18.32 Chronic kidney disease, stage 3b (principal); I10 Essential (primary) hypertension; N25.0 Renal osteodystrophy; R80.1 Persistent proteinuria, unspecified; M81.0 Age-related osteoporosis without current pathological fracture
CPT/HCPCS: 36415; 80069; 82043; 82306; 82570; 85025

== ENCOUNTER → 2023-01-27 12:31 | Outpatient (POV) | payer MEDICARE, OTHER, SELFPAY | PROVIDERS: Visit Provider Internal Medicine Nephrology | DX: Z00.00 Encounter for general adult medical examination without abnormal findings (principal) ==

== ENCOUNTER → 2023-02-19 09:08 | Outpatient (CLI) | payer MEDICARE, OTHER, SELFPAY ==
--- NOTE | 2023-02-19 09:17 | XR_ITS ---
FINAL REPORT CLINICAL HISTORY: FOLLOW UP SURGERY FINDINGS: LUMBAR SPINE Four views demonstrate no acute fracture. There is fusion from L2-S1. The right screw at L2 is broken. There is rightward curvature. There is mild retrolisthesis of L1 on 2. Multilevel vascular calcification is identified. IMPRESSION: Postsurgical changes with a broken screw as detailed above. Reviewed, Interpreted and Dictated by Juan Moore III, MD Transcribed by Pippa Blair Authenticated and [facility]
== END ==
PROVIDERS: PCP Nurse Practitioner Family; Visit Provider Neurological Surgery
DX: M54.50 Low back pain, unspecified (principal); Z48.89 Encounter for other specified surgical aftercare
CPT/HCPCS: 72110

== ENCOUNTER 2023-04-22 14:00 | Outpatient (RCR) | payer MEDICARE, OTHER, SELFPAY | END 2023-04-22 15:00 | disposition home or self-care (01) | LOC: PT 14:00 | PROVIDERS: PCP Nurse Practitioner Family; Visit Provider Nurse Practitioner Family | DX: M62.81 Muscle weakness (generalized) (principal); M54.50 Low back pain, unspecified | CPT/HCPCS: 97010; 97014; 97110; 97112; 97116; 97163; 97164; 97530; 97535; G0283 ==

== ENCOUNTER 2023-06-12 09:36 | Outpatient (CLI) | payer MEDICARE, OTHER, SELFPAY ==
[2023-06-12 10:19] LABS: Chloride 100 mmol/L (98-107); Sodium 138 mmol/L (136-145)
[2023-06-12 10:20] LABS: Potassium 4.6 mmoL/L (3.5-5.1)
[2023-06-12 10:22] LABS: Alanine Aminotransferase 20 U/L (12-78); Albumin Level 3.7 g/dl (3.5-5.0); Albumin/Globulin Ratio 1.3 (1.1-1.8); Alkaline Phosphatase 77 U/L (38-126); Anion Gap 12.6 mEq/L (5-15); Aspartate Amino Transferase 27 U/L (14-36); Bilirubin,Total 0.4 mg/dl (0.2-1.3); Blood Urea Nitrogen 32 mg/dl (7-17); Carbon Dioxide 30 mmol/L (22.0-30.0); Cholesterol 195 mg/dl (140-200); Estimated Glomerular Filt Rate 32 ml/min (>60); GFR (African American) 38 ML/MIN (>60); Globulin 2.8 g/dL (1.3-3.2); Total Protein,Serum 6.5 g/dl (6.3-8.2); Triglycerides 400 mg/dl (30-150)
[2023-06-12 10:23] LABS: Calcium 8.6 mg/dl (8.4-10.2); Glucose 123 mg/dl (74-100); HDL Cholesterol 39 mg/dl (40-60)
[2023-06-12 10:33] LABS: Direct LDL Cholesterol 31.76 mg/dL (100-129)
== END 2023-06-12 23:59 ==
LOC: LAB 09:38
PROVIDERS: PCP Nurse Practitioner Family; Visit Provider Internal Medicine Cardiovascular Disease
DX: I65.22 Occlusion and stenosis of left carotid artery (principal)
CPT/HCPCS: 36415; 80053; 80061

== ENCOUNTER 2023-07-24 08:40 | Outpatient (CLI) | payer MEDICARE, OTHER, SELFPAY ==
--- NOTE | 2023-07-24 08:49 | XR_ITS ---
FINAL REPORT CLINICAL HISTORY: RT HIP PAIN COMPARISON: 01/21/2022 FINDINGS: RIGHT HIP Two views of the right hip demonstrate no acute fracture or dislocation. There is mild degenerative change in both hips. The visualized bony structures are well aligned. No soft tissue abnormality is seen. There are postoperative changes in the lower lumbar spine. IMPRESSION: Mild degenerative change without acute bony abnormality. Reviewed, Interpreted and Dictated by Juan Moore III, MD Transcribed by July Verma Authenticated and . [facility]
--- NOTE | 2023-07-24 08:49 | XR_ITS ---
FINAL REPORT CLINICAL HISTORY: RT ANKLE JOINT PAIN COMPARISON: None FINDINGS: RIGHT ANKLE: Three views of the right ankle were obtained. There is no acute fracture or dislocation. There is mild degenerative change. The ankle mortise is intact. There is no soft tissue abnormality. IMPRESSION: Mild degenerative change without acute bony abnormality. Reviewed, Interpreted and Dictated by Juan Moore III, MD Transcribed by July Verma Authenticated and [facility]
== END 2023-07-24 23:59 ==
PROVIDERS: PCP Nurse Practitioner Family; Visit Provider Nurse Practitioner Family
DX: M25.551 Pain in right hip (principal); M25.571 Pain in right ankle and joints of right foot
CPT/HCPCS: 73502; 73610

== ENCOUNTER 2023-11-19 16:05 | Emergency (ER) | payer MEDICARE, OTHER, SELFPAY ==
[2023-11-19 16:06] VITALS: BP 176/85; PULSE 82; RESP 17; TEMP 36.6; O2SAT 95; BMI 28.3
--- NOTE | 2023-11-19 16:08 | ECG_ITS ---
APPROVED REPORT Exam: Resting ECG HR:80 bpm ECG Measurements Heart Rate 80 AXES AL 167 P 75 QRSd 88 QRS 56 QT 384 T 73 QTc 420 Conclusion SINUS RHYTHM NORMAL ECG Electronically signed by : SISSY CLINE, 11/20/2023 19:10:03
[2023-11-19 16:17] VITALS: BP 173/84; PULSE 76; RESP 14; O2SAT 94
--- NOTE | 2023-11-19 16:21 | CT_ITS ---
PROCEDURE INFORMATION: Exam: CTA Head With Contrast, Arteriography Exam date and time: 11/19/2023 5:54 PM Age: 73 years old Clinical indication: Other: Syncope, L foot drop TECHNIQUE: Imaging protocol: Computed tomographic angiography of the head with contrast. Exam focused on the arteries. 3D rendering (Not supervised by radiologist): MIP and/or 3D reconstructed images were created by the technologist. Radiation optimization: All CT scans at this facility use at least one of these dose optimization techniques: automated exposure control; mA and/or kV adjustment per patient size (includes targeted exams where dose is matched to clinical indication); or iterative reconstruction. Contrast material: ISOVUE 370; Contrast volume: 100 ml; Contrast route: INTRAVENOUS (IV); COMPARISON: MR ANGIO HEAD WO CON 01/29/2022 9:38 AM FINDINGS: ANTERIOR CIRCULATION: Right internal carotid artery: Calcification involving the right carotid siphon with moderate stenosis. Right middle cerebral artery: No occlusion or significant stenosis. No aneurysm. Right anterior cerebral artery: Hypoplastic right MELINA A1 segment. Left internal carotid artery: Calcification involving the left carotid siphon without significant stenosis. Left middle cerebral artery: No occlusion or significant stenosis. No aneurysm. Left anterior cerebral artery: No occlusion or significant stenosis. No aneurysm. POSTERIOR CIRCULATION: Right vertebral artery: Right vertebral artery is diminutive following the takeoff of PICA. Left vertebral artery: Left vertebral artery is dominant. Basilar artery: No occlusion or significant stenosis. No aneurysm. Right posterior cerebral artery: Carotid dominant right posterior cerebral artery with hypoplastic right P1 segment. Left posterior cerebral artery: Carotid dominant left posterior cerebral artery with hypoplastic left P1 segment. IMPRESSION: 1. Moderate stenosis involving the right carotid siphon. 2. No large vessel occlusion.
--- NOTE | 2023-11-19 16:21 | CT_ITS ---
PROCEDURE INFORMATION: Exam: CTA Neck With Contrast Exam date and time: 11/19/2023 5:54 PM Age: 73 years old Clinical indication: Other: Syncope, L foot drop TECHNIQUE: Imaging protocol: Computed tomographic angiography of the neck with contrast. Exam focused on the cervical segments of the vasculature. 3D rendering (Not supervised by radiologist): MIP and/or 3D reconstructed images were created by the technologist. Radiation optimization: All CT scans at this facility use at least one of these dose optimization techniques: automated exposure control; mA and/or kV adjustment per patient size (includes targeted exams where dose is matched to clinical indication); or iterative reconstruction. Contrast material: ISOVUE 370; Contrast volume: 100 ml; Contrast route: INTRAVENOUS (IV); COMPARISON: MR ANGIO NECK WO CON 01/29/2022 9:38 AM FINDINGS: Limitations: Limited by artifact arising from metallic dental hardware/dental amalgam. Right common carotid artery: Calcification at the right common carotid bifurcation. Stenosis measures 55%. Right internal carotid artery: Calcification and plaquing at the proximal right internal carotid artery. Stenosis measures 45%. Right external carotid artery: Moderate to severe stenosis at the origin of the right external carotid artery. Left common carotid artery: Calcification at the left common carotid bifurcation. Mild stenosis measures less than 50%. Left internal carotid artery: Dense calcification at the proximal left internal carotid artery. Stenosis measures 60%. Left external carotid artery: No occlusion or stenosis of the origin. Right vertebral artery: No stenosis. No dissection or occlusion. Left vertebral artery: Left vertebral artery is dominant. Aorta: Aortic calcification. Thyroid: Question previous thyroid resection or ablation. Lymph nodes: There are calcified mediastinal lymph nodes. Soft tissues: Normal. No significant soft tissue swelling. Bones/joints: There are degenerative and postoperative changes involving the spine. IMPRESSION: 1. 60% stenosis of the proximal left internal carotid artery. 2. 55% stenosis at the right common carotid bifurcation. 3. 45% stenosis of the proximal right internal carotid artery. 4. 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 REFERENCES: NASCET CRITERIA. The degree of stenosis in the cervical segment of the internal carotid artery is based on NASCET criteria. Normal is no stenosis. Mild is less than 50% stenosis. Moderate is 50-69% stenosis. Severe is 70% to 99% stenosis. Total occlusion is no detectable patent lumen.
--- NOTE | 2023-11-19 16:22 | CT_ITS ---
PROCEDURE INFORMATION: Exam: CTA Chest With Contrast Exam date and time: 11/19/2023 5:58 PM Age: 73 years old Clinical indication: Other: Syncope, L foot drop, hypoxemia TECHNIQUE: Imaging protocol: Computed tomographic angiography of the chest with contrast. Exam focused on the arteries. 3D rendering (Not supervised by radiologist): MIP and/or 3D reconstructed images were created by the technologist. Radiation optimization: All CT scans at this facility use at least one of these dose optimization techniques: automated exposure control; mA and/or kV adjustment per patient size (includes targeted exams where dose is matched to clinical indication); or iterative reconstruction. Contrast material: ISOVUE 370; Contrast volume: 80 ml; Contrast route: INTRAVENOUS (IV); COMPARISON: 1. [facility] CT CHEST W/O CONTRAST 08/04/2017 09:[address] THORACIC SPINE WO CON 12/22/2022 12:23 AM FINDINGS: Pulmonary arteries: Normal. No pulmonary emboli. Aorta: The aorta demonstrates severe atherosclerotic disease. No aortic dissection. Other arteries: There is a small intra arterial plaque/thrombus in the distal aortic arch on image 31 series 5. Lungs: Mild scarring and atelectasis in the lower lungs. Right hemidiaphragm elevation with right lower lung atelectasis. Low lung volumes with associated vascular crowding and bibasilar atelectasis. Pleural spaces: Unremarkable. No pneumothorax. No pleural effusion. Heart: Mitral valve calcifications. Cardiomegaly. Coronary arteries: Coronary artery calcifications. Lymph nodes: Unremarkable. No enlarged lymph nodes. Bones/joints: Status post median sternotomy and coronary artery bypass. Small left shoulder effusion. Sclerotic endplates with endplate erosions at T9-10 appears improved compared to prior study. This could be sequela of prior discitis osteomyelitis. Moderate osteoarthrosis of the glenohumeral joints. Soft tissues: Unremarkable. Other findings: Please see separate report for abdomen/pelvis. Stigmata of old granulomatous disease. IMPRESSION: No aortic dissection. No acute findings.
--- NOTE | 2023-11-19 16:22 | CT_ITS ---
PROCEDURE INFORMATION: Exam: CTA Abdomen and Pelvis With Contrast Exam date and time: 11/19/2023 5:58 PM Age: 73 years old Clinical indication: Other: Syncope, L foot drop, hypoxemia TECHNIQUE: Imaging protocol: Computed tomographic angiography of the abdomen and pelvis with contrast. Exam focused on the arteries. 3D rendering (Not supervised by radiologist): MIP and/or 3D reconstructed images were created by the technologist. Radiation optimization: All CT scans at this facility use at least one of these dose optimization techniques: automated exposure control; mA and/or kV adjustment per patient size (includes targeted exams where dose is matched to clinical indication); or iterative reconstruction. Contrast material: ISOVUE 370; Contrast volume: 80 ml; Contrast route: INTRAVENOUS (IV); COMPARISON: CT ANGIO CHEST 05/14/2024 17:58 FINDINGS: Aorta: No aortic dissection. Celiac trunk and mesenteric arteries: Moderate stenosis of origin of the celiac trunk. Renal arteries: Moderate stenosis of the origin of the left renal artery. Moderate to severe stenosis of the origin of the right renal artery. Right iliac arteries: No occlusion or significant stenosis. Left iliac arteries: No occlusion or significant stenosis. Other arteries: Mild intra arterial plaque/thrombus in the abdominal aorta. Accessory right renal arteries noted. Liver: Probable hepatic steatosis. Possible morphologic changes of cirrhosis. Gallbladder and bile ducts: Gallbladder is absent. Pancreas: Unremarkable. No mass. No ductal dilation. Spleen: Unremarkable. No splenomegaly. Adrenal glands: Unremarkable. No mass. Kidneys and ureters: Unremarkable. No solid mass. No hydronephrosis. Stomach and bowel: Mild sigmoid diverticulosis without diverticulitis. Nonspecific bowel wall thickening of portions of small bowel and colon. Appendix: No evidence of appendicitis. Intraperitoneal space: Unremarkable. No free air. No significant fluid collection. Lymph nodes: Unremarkable. No enlarged lymph nodes. Urinary bladder: Unremarkable. No mass. Reproductive: Status post hysterectomy. Bones/joints: Postsurgical changes of the lumbar spine. The hardware appears intact. Soft tissues: Tiny fat containing umbilical hernia. There is a healed anterior abdominal wall incision. Other findings: Please see separate report for CT chest. IMPRESSION: 1. No aortic dissection. 2. 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 Moderate to severe stenosis of the origin of the right renal artery. 3. Nonspecific bowel wall thickening of portions of small bowel and colon. Please exclude enterocolitis.
--- NOTE | 2023-11-19 16:22 | XR_ITS ---
PROCEDURE INFORMATION: Exam: XR Chest Exam date and time: 11/19/2023 5:59 PM Age: 73 years old Clinical indication: Shortness of breath; Additional info: Hypoxemia, SOA TECHNIQUE: Imaging protocol: Radiologic exam of the chest. Views: 1 view. COMPARISON: CT ANGIO CHEST 11/19/2023 5:58 PM FINDINGS: Lungs: No focal consolidation. Pleural spaces: Unremarkable. No pleural effusion. No pneumothorax. Heart/Mediastinum: Unremarkable. No cardiomegaly. Diaphragm: Stable elevation right hemidiaphragm. Bones/joints: Fixation lower cervical spine. Median sternotomy wires. IMPRESSION: No acute findings.
--- NOTE | 2023-11-19 16:22 | CT_ITS ---
PROCEDURE INFORMATION: Exam: CT Head Without Contrast Exam date and time: 11/19/2023 5:51 PM Age: 73 years old Clinical indication: Other: Syncope, L foot drop, hypoxemia TECHNIQUE: Imaging protocol: Computed tomography of the head without contrast. Radiation optimization: All CT scans at this facility use at least one of these dose optimization techniques: automated exposure control; mA and/or kV adjustment per patient size (includes targeted exams where dose is matched to clinical indication); or iterative reconstruction. COMPARISON: CT HEAD/BRAIN WO CON 12/22/2022 12:19 AM FINDINGS: Brain: Age-related volume loss. Decreased attenuation of the supratentorial white matter is likely secondary to chronic microvascular ischemia. No acute intracranial hemorrhage, midline shift or intracranial mass effect. Stable left occipital lobe calcification. Cerebral ventricles: No obstructive hydrocephalus. Paranasal sinuses: Visualized sinuses are unremarkable. No fluid levels. Mastoid air cells: Visualized mastoid air cells are well aerated. Bones: Unremarkable. No acute fracture. Soft tissues: Unremarkable. IMPRESSION: No acute intracranial abnormality.
[2023-11-19] MEDS: ASPIRIN 81MG CHEWABLE TABLET 324 MG PO (16:32)
[2023-11-19] MEDS: LACTATED RINGERS 1000ML 1,000 ML 999 ML IV (16:32)
[2023-11-19 17:00] VITALS: BP 150/89; PULSE 76; RESP 11; O2SAT 98
[2023-11-19 17:02] LABS: Lactate Venous 2.1 mmol/L (0.4-2.0); VBG Base Excess -1.1 mmol/L (-2.4-2.3); VBG HCO3 24.7 mmol/L (23-30); VBG Oxygen Saturation 82.1 % (50-70); VBG PCO2 46.7 mmol/L (35-51); VBG PH 7.34 mmol/L (7.31-7.41); VBG PO2 48.8 mmol/L (28-40); VBG Total CO2 26.1 mmol/L (23-27)
--- NOTE | 2023-11-19 17:02 | ED_ITS ---
Discharge Plan Disposition Patient Disposition: Home, Self-Care Prescriptions Prescriptions: New levofloxacin 750 mg tablet 750 mg PO DAILY 7 Days Qty: 7 0RF No Action rosuvastatin 40 mg tablet 40 mg PO DAILY insulin lispro 100 unit/mL cartridge 1 sliding scale dose SQ AC Rx Instructions: pt states she programs her pump based on the number of carbs she eats Please provide 12 vials, patient is running out c 9 vials due to glucose running high. allopurinol 100 MG tablet 100 mg PO DAILY venlafaxine 75 mg capsule,extended release 24hr 75 mg PO DAILY gabapentin 600 mg tablet 600 mg PO BID levothyroxine [Synthroid] 112 mcg tablet 112 mcg PO DAILY carvedilol 25 mg tablet 25 mg PO BID omeprazole 40 mg capsule,delayed release(DR/EC) 40 mg PO DAILY icosapent ethyl 1 gram capsule 2 g PO BID amoxicillin 500 mg Capsule 500 mg PO Q8H 6 Days Qty: 18 0RF Referrals Follow up/Referrals: Roman King APRN [Primary Care Provider] - See instructions Archie Ayers MD [Staff Physician] - See instructions Activity Restrictions/Add. Instructions Additional Instructions/Restrictions: Call Dr. Ayers's team to follow-up regarding this visit to the emergency department and heart evaluation. Call your family doctor to establish care for this visit to the emergency department and schedule follow-up within 48 hours to ensure improvement. If you have any worsening of your condition or any other concerning signs or symptoms, return to the emergency department or your primary care doctor for further evaluation. See your family doctor for further follow- up regarding blood vessels in your head and neck and then narrowing. You would benefit from outpatient appointment with neurosurgery in order to have them evaluated for stenting. Not getting them stented or allowing them to become more narrow can lead to strokes. Clinical Impressions Clinical Impression: Syncope, Chest pain Discharge ED Provider: Tomas Pierce HPI General Chief Complaint: Chest Pain Stated Complaint: Weakness Time Seen by Provider: 11/19/23 16:07 Mode of Arrival: EMS Source of Information: Patient and EMS Limitations: No Limitations Description of Symptoms (Recalled from ER Triage Doc. by RN): pt presents to ED with c/o chest pain, syncopal episode today. History of Present Illness HPI narrative: Please note that above description of symptoms, in this electronic medical record under categorization of recalled from ER triage doctor by RN are reflective of an initial nursing assessment, however, is not reflective of my full history and physical exam that was personally taken and clarified. Consequentially, this preceding description of symptoms, which may include the patient's categorized chief complaint in the EMR, do not reflect my personal clinical impression, and the ultimate description of history of present illness and patient stated complaints should be deferred to this section of the note. Unless stated otherwise or congruent with this section of the note, additional signs, symptoms, or incongruence should be interpreted as inaccurate with my clinical impression. Related Data Home Medications Medication Instructions Recorded Confirmed allopurinol 100 mg tablet 100 mg PO DAILY Gout 04/27/18 01/13/23 rosuvastatin 40 mg tablet 40 mg PO DAILY High cholesterol 06/30/20 01/13/23 insulin lispro 100 unit/mL 1 sliding scale dose SQ AC Diabetes 02/12/22 01/13/23 subcutaneous cartridge gabapentin 600 mg tablet 600 mg PO BID Nerve pain 11/19/22 01/13/23 levothyroxine 112 mcg tablet 112 mcg PO DAILY Thyroid 11/19/22 01/13/23 (Synthroid) venlafaxine 75 mg capsule,extended 75 mg PO DAILY Mood 11/19/22 01/13/23 release 24 hr carvedilol 25 mg tablet 25 mg PO BID High blood pressure 11/20/22 01/13/23 icosapent ethyl 1 gram capsule 2 g PO BID High cholesterol 11/20/22 01/13/23 omeprazole 40 mg capsule,delayed 40 mg PO DAILY Acid reflux 11/20/22 01/13/23 release Previous Rx's Medication Instructions Recorded amoxicillin 500 mg capsule 500 mg PO Q8H 6 days #18 caps 01/14/23 levofloxacin 750 mg tablet 750 mg PO DAILY 7 days #7 tabs 11/19/23 Allergies Allergy/AdvReac Type Severity Reaction Status Date / Time lisinopril [LISINOPRIL] Allergy Severe S-SWELLS-OR Verified 01/13/23 14:56 AL/THROAT nitrofurantoin Allergy Intermediate I-HIVES Verified 01/13/23 14:56 [NITROFURANTOIN] codeine [CODEINE] Allergy Unknown NA-NAUSEA/V Verified 01/13/23 14:56 OMITING acetaminophen [From Percocet] AdvReac Severe Hallucinati Verified 01/13/23 14:56 ng oxycodone [From Percocet] AdvReac Severe Hallucinati Verified 01/13/23 14:56 ng cephalexin [From Keflex] AdvReac Verified 01/13/23 14:56 PFSH PFS Disclaimer: The information contained in this section may have been updated after the patient was seen, as this information can be updated by other users. Medical History Fusion of lumbar spine IDDM (insulin dependent diabetes mellitus) Type 2 diabetes mellitus with hyperglycemia Surgical History History of appendectomy History of History of tonsillectomy Hx of cholecystectomy S/P right rotator cuff repair Status post cardiac surgery Family History Other Cancer Coronary artery disease Diabetes Heart attack Hypertension Kidney disease Thyroid disorder Social History Smoking Status: Never smoker alcohol intake: never substance use type: denies use current occupational status: retired Travel in the last 8 weeks: None household members: spouse housing: house lives independently: No marital status: number of children: 1 number of grandchildren: 1 caffeine: Yes ROS Obtained: Yes All systems reviewed & no additional complaints except as documented Physical Exam General General appearance: alert, in no apparent distress and anxious Neck Neck exam: Present trachea midline Chest Chest inspection: Present normal inspection and symmetric chest wall rise Respiratory Respiratory exam: Present normal lung sounds bilaterally; Absent respiratory distress, wheezes, stridor, accessory muscle use or prolonged expiratory phase Cardiovascular Cardiovascular exam: Present regular rate, normal rhythm and normal heart sounds Abdominal Exam Abdominal exam: Present soft; Absent distention, tenderness, guarding or pulsatile mass Extremities Exam Extremities exam: Absent edema Neurological Exam Neurological exam: Present alert, oriented X3, CN II-XII intact, normal gait and motor sensory deficit (Has isolated left-sided foot drop, unknown if this is acute or chronic) Skin Skin exam: Present warm and dry; Absent cyanosis, diaphoresis or pallor HEART Score HEART Score HEART Score assessment performed?: Yes History (anamnesis): Slightly suspicious ECG: Non-specific disturbance Age: >65 years Risk factors: 3 or more risk factors Troponin: </= normal limit HEART Score: 5 Critical Care Critical Care Time Critical Care Time: No Medical Decision Making Medical Records Medical records reviewed: Yes I reviewed the patient's medical records. Donald Inquiry Pt receiving controlled substance: No Donald was queried for this patient: No Vital Signs Vital Signs: 11/19/23 16:06 11/19/23 16:17 11/19/23 17:00 Temperature 97.9 F Temperature Source Oral Pulse Rate 76 76 Pulse Rate [Left Radial] 82 Respiratory Rate 17 14 11 L Blood Pressure 173/84 H 150/89 H Blood Pressure [Right Arm] 176/85 H Blood Pressure Mean 128 Blood Pressure Mean [Right Arm] 115 02 Sat by Pulse Oximetry 95 94 L 98 Oxygen Delivery Method Room Air 11/19/23 17:30 Temperature Temperature Source Pulse Rate 84 Pulse Rate [Left Radial] Respiratory Rate 13 Blood Pressure 148/81 H Blood Pressure [Right Arm] Blood Pressure Mean 103 Blood Pressure Mean [Right Arm] 02 Sat by Pulse Oximetry 98 Oxygen Delivery Method Lab Data Labs: Lab Results 11/19/23 16:23: VBG pH 7.34, VBG pCO2 46.7, VBG pO2 48.8 H, VBG HCO3 24.7, VBG Total CO2 26.1, VBG O2 Saturation 82.1 H, VBG Base Excess -1.1, VBG Lactic Acid 2.1 H 11/19/23 16:39: WBC 10.2, RBC 4.56, Hgb 13.0, Hct 41.2, MCV 90.4, MCH 28.6, MCHC 31.6 L, RDW 18.2 H, Plt Count 236, MPV 8.4, Neut % (Auto) 61.3, Lymph % (Auto) 23.8, [place] % (Auto) 6.8, Eos % (Auto) 6.5, Baso % (Auto) 1.6, Neut # (Auto) 6.2, Lymph # (Auto) 2.4, [place] # (Auto) 0.7, Eos # (Auto) 0.7 H, Baso # (Auto) 0.2, PT 10.9, INR 1.01, APTT 28.4, Sodium 136, Potassium 4.4, Chloride 103, Carbon Dioxide 25, Anion Gap 12.4, BUN 39 H, Creatinine 2.10 H, Estimated Creat Clear 24, Estimated GFR 23 L, Est GFR ( Amer) 28 L, Glucose 165 H, Hemoglobin A1c 8.3 H, Calcium 9.0, Total Bilirubin 0.4, AST 42 H, ALT 26, Alkaline Phosphatase 66, Troponin I < 0.01, NT-Pro-B Natriuret Pep 384 H, Total Protein 7.2, Albumin 4.0, Globulin 3.2, Albumin/Globulin Ratio 1.3 11/19/23 17:35: Urine Color Yellow, Urine Appearance Clear, Urine pH 6.0, Ur Specific [place] 1.010, Urine Protein 1+, Urine Glucose (UA) Negative, Urine Ketones Negative, Urine Blood Negative, Urine Nitrate Negative, Urine Bilirubin Negative, Urine Urobilinogen 0.2, Ur Leukocyte Esterase 1+ A, Urine RBC Occasional, Urine WBC 5-10, Ur Squamous Epith Cells Occasional, Urine Bacteria Trace 11/19/23 20:22: Troponin I < 0.01 11/19/23 16:39 11/19/23 16:39 Response Orders (Tests/Meds): ED MEDICATIONS Discontinued Medications Generic Name Dose Route Start Last Admin Trade Name Freq PRN Reason Stop Dose Admin Aspirin 324 mg 11/19/23 16:21 11/19/23 16:32 Aspirin 81mg Chewable Tablet PO 11/19/23 16:22 324 mg ONCE ONE Administration Lactated Ringer's 1,000 mls @ 999 mls/hr 11/19/23 16:21 11/19/23 16:32 Lactated Ringer's 1000 Ml Bag IV 11/19/23 17:21 999 mls/hr .Q1H1M ONE Administration Iopamidol 180 ml 11/19/23 18:20 11/19/23 18:21 Iopamidol-370 (76%);100ml Bottle IV 11/19/23 18:21 180 ml ONCE ONE Administration Levofloxacin 750 mg 11/19/23 20:34 11/19/23 21:01 Levofloxacin 750 Mg Tablet PO 11/19/23 20:35 750 mg ONCE ONE Administration Sodium Chloride 10 ml 11/19/23 18:20 11/19/23 18:21 Sodium Chloride 0.9% 10ml Syr (Rad Only) IV 11/19/23 18:21 10 ml ONCE ONE Administration Sodium Chloride 100 ml 11/19/23 18:20 11/19/23 18:21 0.9 % Sodium Chloride 50 Ml Vial IV 11/19/23 18:21 100 ml ONCE ONE Administration ORDERS Category Date Time Status CT angio abdomen pelvis Stat Cat Scan 11/19/23 16:[address] angio head Stat Cat Scan 11/19/23 16:[address] angio neck Stat Cat Scan 11/19/23 16:[address] head/brain wo con Stat Cat Scan 11/19/23 16:22 Completed CTA Chest [CT angio chest - dissection] Stat Cat Scan 11/19/23 16:22 Completed XR chest portable Stat Exams 11/19/23 16:22 Taken Complete Blood Count Auto Diff Stat Lab 11/19/23 16:39 Completed Comprehensive Metabolic Panel Stat Lab 11/19/23 16:39 Completed Hemoglobin A1C Stat Lab 11/19/23 16:39 Completed Lactic Acid Follow Up (RFLX 1) Stat Lab 11/19/23 20:34 Ordered NT Pro Brain Natriuretic Pep. Stat Lab 11/19/23 16:39 Completed PT INR [Prothrombin Time INR] Stat Lab 11/19/23 16:39 Completed PTT [Activated Partial Thrombo Time] Stat Lab 11/19/23 16:39 Completed Troponin I Q3H Lab 11/19/23 20:22 Completed Troponin I Q3H Lab 11/19/23 22:30 Ordered Troponin I Stat Lab 11/19/23 16:39 Completed Urinalysis and Microscopic Stat Lab 11/19/23 17:35 Completed Urine Culture Stat Micro 11/19/23 17:35 Received Venous Blood Gas Stat RT 11/19/23 16:23 Completed MDM Narrative Medical Decision Narrative: 73-year-old female history of TIAx 2, hypertension, hyperlipidemia, CKD, type 2 diabetes, CAD status post one-vessel CABG presenting with syncopal episode. Patient states she was sitting on the couch prior to arrival and started having substernal chest pressure that did not radiate, was moderate in intensity and the next thing she remembers is waking up with the ambulance. Patient states she is not currently having any discomfort. No weakness, speech finding difficulties, vision changes, headache, shortness of breath, nausea or vomiting. No recent illness. States she has been taking all her medications as prescribed, never had anything like this in the past. History was obtained via conversation with patient. On arrival, patient hemodynamically stable, alert, oriented x4, appropriate, GCS 15, moving all extremities spontaneously, pupils equal and reactive to light. Full physical exam performed and significant for very well-appearing. Cardiopulmonary exam within normal limits, no lower extremity edema, abdomen is soft, nontender, nondistended. Neurologically intact other than isolated foot drop on the left, which she states she is unsure is acute or chronic. Cranial nerve, cerebellar, sensory exams within normal limits. Motor exam within normal limits otherwise and she is ambulatory without issue. Differential includes ACS, [place], dissection, vasovagal, orthostatic, metabolic disturbance, CVA, intracranial bleed, among others. Patient was given full dose aspirin for symptomatic management and correction of underlying abnormalities. Workup independently interpreted and significant for negative initial troponin. Mild EDIN on CKD. Patient given fluids for this. Also concern for UTI on UA, given Levaquin for this given numerous allergies and discussion of antibiotic use in the past with patient and . CT angiogram of the chest, head, neck as well as CT head without contrast without acute findings. 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 See radiology read for full review of final results. Independent interpretation of EKG shows sinus rhythm 80 beats a minute without ST or T wave changes concerning for acute ischemia. DE, QRS, QT intervals within normal limits at 167, 88, 420 ms, respectively. [place] normal.. Patient placed on continuous cardiac monitoring and continuous pulse ox with initial blood pressure 176/85, heart rate 82, saturation 95 on room air. Shortly thereafter was anywhere from 90-94, placed on 2 L nasal cannula. Heart score 5. Patient was placed in observation beginning at 6 PM in order to rule out evolving [place] with delta troponin and determine need for admission versus home-going. The patient was provided serial exams, cardiac monitoring while awaiting results. Independent interpretation of results demonstrated negative delta troponin. On reevaluation, patient feeling better, neurologically intact, at baseline, appropriate for home-going. At this time, I feel patient is appropriate for discharge. Total observation time 3 hours. Further conversation with patient and reveals that foot drop on the left may be chronic. Conversation had regarding home-going and follow-up with her PCP for discussion with neurosurgery for extracranial and intracranial stenosis, voiced her understanding. Because patient at baseline without signs or symptoms of clinical decompensation, deemed appropriate for discharge. Results were relayed to patient who voiced understanding and were agreeable to outpatient management and follow up. I discussed my clinical impression with patient and answered all questions. At this time, the evidence for any other entities in the differential is insufficient to warrant any further testing or ED observation. This was explained as well. Advisory was given that persistent or worsening symptoms require further evaluation. I confirmed the understanding of this discussion. Parking Lot Laborer disclaimer Much of this encounter note is an electronic packing and wrapping supervisor spoken language to printed text. Electronic packing and wrapping supervisor of the spoken language may permit errors. Although I have reviewed the note, some errors may still exist.
[2023-11-19 17:05] LABS: Basophils # 0.2 K/mm3 (0-0.2); Basophils % 1.6 % (0.1-2.0); Eosinophils # 0.7 K/mm3 (0.0-0.4); Eosinophils % 6.5 % (0.1-12.0); Hematocrit 41.2 % (37.0-47.0); Lymphocytes # 2.4 K/mm3 (0.7-4.5); Lymphocytes % 23.8 % (10-50); Mean Corpuscular HGB Conc 31.6 g/dL (31.8-35.4); Mean Corpuscular Hemoglobin 28.6 pg (27.0-31.2); Mean Corpuscular Volume 90.4 fl (81-99); Mean Platelet Volume 8.4 fl (7.4-10.4); Monocytes # 0.7 K/mm3 (0.1-1.0); Monocytes % 6.8 % (1.7-9.3); Neutrophils # 6.2 K/mm3 (1.8-7.8); Neutrophils % 61.3 % (37.0-80.0); Platelet Count 236 K/mm3 (142-424); Red Blood Count 4.56 M/mm3 (4.20-5.40); Red Cell Distribution Width 18.2 % (11.5-17.5); White Blood Count 10.2 K/mm3 (4.8-10.8)
[2023-11-19 17:09] LABS: Chloride 103 mmol/L (98-107); Potassium 4.4 mmoL/L (3.5-5.1); Sodium 136 mmol/L (136-145)
[2023-11-19 17:11] LABS: Alanine Aminotransferase 26 U/L (12-78); Aspartate Amino Transferase 42 U/L (14-36); Blood Urea Nitrogen 39 mg/dl (7-17); Creatinine Clearance Estimated 24 mL/min (50-200); Estimated Glomerular Filt Rate 23 ml/min (>60); GFR (African American) 28 ML/MIN (>60)
[2023-11-19 17:12] LABS: Albumin/Globulin Ratio 1.3 (1.1-1.8); Alkaline Phosphatase 66 U/L (38-126); Anion Gap 12.4 mEq/L (5-15); Bilirubin,Total 0.4 mg/dl (0.2-1.3); Carbon Dioxide 25 mmol/L (22.0-30.0); Globulin 3.2 g/dL (1.3-3.2); Glucose 165 mg/dl (74-100); Total Protein,Serum 7.2 g/dl (6.3-8.2)
[2023-11-19 17:15] LABS: Activated Partial Thrombo Time 28.4 seconds (22.8-30.6); INR 1.01 (0.9-1.1); Prothrombin Time 10.9 seconds (10.1-12.5)
[2023-11-19 17:22] LABS: NT Pro Brain Natriuretic Pep. 384 pg/mL (0-125)
[2023-11-19 17:30] VITALS: BP 148/81; PULSE 84; RESP 13; O2SAT 98
[2023-11-19 17:42] LABS: Troponin I < 0.01 ng/ml (0.00-0.034)
[2023-11-19 17:54] LABS: Microscopic, Urine URINE MICROSCOPIC (MICROSCOPIC)
[2023-11-19 17:59] LABS: Hemoglobin A1C 8.3 % (4.0-6.0)
[2023-11-19 18:05] LABS: Appearance,Urine CLEAR (Clear); Bilirubin,Urine Negative (Negative); Blood, Urine Negative (Negative); Color,Urine YELLOW (Yellow); Glucose,Urine (UA) Negative (Negative); Ketones,Urine Negative (Negative); Leukocyte Esterase,Urine 1+ (Negative); Nitrate,Urine Negative (Negative); Protein,Urine 1+ (Negative); Urobilinogen,Urine 0.2 EU/dl (0.2)
--- NOTE | 2023-11-19 18:19 | HMH.ITSTN ---
?GFR results were overrode for the use of contrast media by the Physician, , on a risk vs. benefit situation with this patient. Physician also signed consent form as well.
[2023-11-19] MEDS: SODIUM CHLORIDE 0.9% 10ML SYR (RAD ONLY) 10 ML IV (18:21)
[2023-11-19] MEDS: 0.9 % SODIUM CHLORIDE 50 ML VIAL 100 ML IV (18:21)
[2023-11-19] MEDS: IOPAMIDOL-370 (76%);100ML BOTTLE 180 ML IV (18:21)
[2023-11-19 18:51] LABS: Bacteria,Urine Trace /lpf; RBC,Urine Occasional #/hpf (0-3); Squamous Epithelial Cell,Urine Occasional #/hpf (0-5)
--- NOTE | 2023-11-19 20:15 | PC.NURSE ---
patient was assisted to the bathroom where hat was placed in toilet to collect urine sample.
--- NOTE | 2023-11-19 20:16 | PC.NURSE ---
urine sent up to lab at this time
[2023-11-19 20:34] LABS: Reflex Lactic Add Lactic Reflex
[2023-11-19 20:53] LABS: Troponin I < 0.01 ng/ml (0.00-0.034)
[2023-11-19] MEDS: levoFLOXacin 750 MG TABLET PO (21:01)
--- NOTE | 2023-11-19 21:01 | INFXCTL.NOTE ---
patient's glucometer device is reading 116 mg/dl. gave patient baked chips, a nutragrain bar and an oj. invited to let us know if additional is needed.
--- NOTE | 2023-11-19 21:20 | PC.NURSE ---
lab called and stated they need tobin top tube. sent at this time
[2023-11-19 22:04] LABS: Lactic Acid Follow Up (RFLX 1) 1.2 mmol/L (0.7-2.1)
[2023-11-19 22:08] VITALS: BP 180/91; PULSE 79; RESP 19; TEMP 36.8; O2SAT 98
--- NOTE | 2023-11-23 10:35 | PC.NURSE ---
URINE CULTURE DISCUSSED WITH DR CLINE, NO MEDICATION CHANGES
== END 2023-11-19 22:16 | disposition home or self-care (01) ==
PROVIDERS: Emergency Provider Emergency Medicine; PCP Nurse Practitioner Family
DX: R07.89 Other chest pain (principal); R55 Syncope and collapse; N39.0 Urinary tract infection, site not specified; B96.4 Proteus (mirabilis) (morganii) as the cause of diseases classified elsewhere; B95.2 Enterococcus as the cause of diseases classified elsewhere; E11.22 Type 2 diabetes mellitus with diabetic chronic kidney disease; N18.1 Chronic kidney disease, stage 1; E78.5 Hyperlipidemia, unspecified; I11.9 Hypertensive heart disease without heart failure; I25.10 Atherosclerotic heart disease of native coronary artery without angina pectoris; Z79.4 Long term (current) use of insulin; Z95.1 Presence of aortocoronary bypass graft; Z86.73 Personal history of transient ischemic attack (TIA), and cerebral infarction without residual deficits
CPT/HCPCS: 70450; 70496; 70498; 71045; 71275; 74174; 80053; 81001; 82803; 83036; 83605; 83880; 84484; 85025; 85610; 85730; 87086; 87088; 87186; 93005; 96360; 99285; J7120; Q9967

== ENCOUNTER 2023-11-25 08:53 | Outpatient (CLI) | payer MEDICARE, OTHER, SELFPAY ==
[2023-11-25 09:02] LABS: Microscopic, Urine URINE MICROSCOPIC (MICROSCOPIC)
[2023-11-25 09:30] LABS: Appearance,Urine CLEAR (Clear); Bilirubin,Urine Negative (Negative); Blood, Urine Negative (Negative); Color,Urine YELLOW (Yellow); Glucose,Urine (UA) TRACE (Negative); Ketones,Urine Negative (Negative); Leukocyte Esterase,Urine Negative (Negative); Nitrate,Urine Negative (Negative); Protein,Urine 1+ (Negative); Specific Gravity, Urine 1.025 (1.005-1.030); Urobilinogen,Urine 0.2 EU/dl (0.2)
[2023-11-25 09:33] LABS: Hematocrit 37.8 % (37.0-47.0); Hemoglobin 12.3 g/dL (12.2-16.2); Mean Corpuscular HGB Conc 32.4 g/dL (31.8-35.4); Mean Corpuscular Hemoglobin 28.9 pg (27.0-31.2); Mean Corpuscular Volume 89.1 fl (81-99); Platelet Count 199 K/mm3 (142-424); Red Blood Count 4.24 M/mm3 (4.20-5.40); Red Cell Distribution Width 18.2 % (11.5-17.5); White Blood Count 10.9 K/mm3 (4.8-10.8)
[2023-11-25 09:45] LABS: Microalbumin/Creatinine Ratio 141.6
[2023-11-25 09:46] LABS: Creatinine,Urine Random 90 mg/dL (Not Estab.)
[2023-11-25 09:51] LABS: WBC,Urine Occasional #/hpf (0-3)
[2023-11-25 10:42] LABS: Albumin Level 3.7 g/dl (3.5-5.0); Chloride 103 mmol/L (98-107); Potassium 4.8 mmoL/L (3.5-5.1); Sodium 134 mmol/L (136-145)
[2023-11-25 10:44] LABS: Blood Urea Nitrogen 40 mg/dl (7-17); Estimated Glomerular Filt Rate 21 ml/min (>60); GFR (African American) 25 ML/MIN (>60)
[2023-11-25 10:45] LABS: Anion Gap 16.8 mEq/L (5-15); Carbon Dioxide 19 mmol/L (22.0-30.0); Glucose 287 mg/dl (74-100); Phosphorous 4.2 mg/dl (2.5-4.5)
[2023-11-28 12:22] LABS: Tandem-R Ostase 17.4 ug/L (.)
[2023-12-20 10:15] LABS: Serial Monitoring PDF SCANNED IMAGE
== END 2023-11-25 23:59 | disposition home or self-care (01) ==
LOC: LAB 08:55
PROVIDERS: PCP Nurse Practitioner Family; Visit Provider Nurse Practitioner
DX: N18.32 Chronic kidney disease, stage 3b (principal); N25.0 Renal osteodystrophy
CPT/HCPCS: 36415; 80069; 81001; 82043; 82570; 84080; 84156; 85014; 85018; 85048; 85049

== ENCOUNTER 2023-12-10 10:20 | Day surgery (SDC) | payer MEDICARE, OTHER, SELFPAY ==
[2023-12-10] MEDS: LACTATED RINGERS 1000ML 1,000 ML 100 ML IV (10:51)
[2023-12-10 11:05] VITALS: BP 184/95; PULSE 85; RESP 18; TEMP 36.6; O2SAT 96; BMI 27.3
[2023-12-10 11:16] LABS: POC Glucose,Bedside 76 (70-110)
[2023-12-10 11:16] LABS: POC Glucose,Bedside 163 (70-110)
--- NOTE | 2023-12-10 11:38 | P.PNANES_ITS ---
[facility] Disclaimer: The information contained in this section may have been updated after the patient was seen, as this information can be updated by other users. Medical History CAD (coronary artery disease) Pyelonephritis of left kidney Physical deconditioning Hydronephrosis, left Type 2 diabetes mellitus with hyperglycemia IDDM (insulin dependent diabetes mellitus) Fusion of lumbar spine Surgical History S/P right rotator cuff repair Hx of cholecystectomy History of tonsillectomy History of appendectomy History of Status post cardiac surgery Family History Other Cancer Coronary artery disease Diabetes Heart attack Hypertension Kidney disease Thyroid disorder Social History Smoking Status: Never smoker alcohol intake: never substance use type: denies use current occupational status: retired Travel in the last 8 weeks: None household members: spouse housing: house lives independently: No marital status: number of children: 1 number of grandchildren: 1 caffeine: Yes [facility] Anesthesia Checklist Patient Identification Patient Identification: Arm Band and Verbal (Name & ) Structural Data Admitted From: Home Planned Operative Procedure/s: Colonoscopy Consent for Planned Operative Procedure(s) Verified: Yes Verified Documents: Surgical Consent and History and Physical NPO Status Verified Time NPO: 00:00 Additional verifications Anesthesia Reactions: No Airway Assessment Mallampati Score:: Class III C-Spine Mobility Assessed: Yes TMJ Mobility Assessed: Yes Dentition: Good Dentition Neurological Assessment Level of Consciousness: Awake Hx Seizures: No Numbness or tingling in extremities: No Anesthesia Plan Anesthesia Risk discussed: Yes Anesthesia Plan: Verified ASA Class: III Anesthesia Type: MAC
[2023-12-10 11:44] VITALS: O2SAT 96
--- NOTE | 2023-12-10 12:00 | HMH.SCOPE ---
Procedure: Date: 12/10/23 Patient Date of :: 1950 Procedure Performed:: Screening colonoscopy Indications:: Personal history of polyps Performing Provider:: Jaclyn Torres MD Referring Provider:: Roman King APRN Sedation:: Propofol Procedure:: After placing the patient in the left lateral decubitus position, the colonoscopy was gently inserted into the rectum and under direct visualization advanced to the cecum which was identified by transillumination in the right lower quadrant, identification of the ileocecal valve, appendiceal orifice, and cecal strap. Color, texture, mucosa, and anatomy of the colon were carefully examined with the scope. Findings:: Anal canal: normal Rectum: normal Sigmoid colon: normal without polyps or inflammatory changes Descending colon: normal without polyps or inflammatory changes Splenic flexure: normal Transverse colon: normal without polyps or inflammatory changes Hepatic flexure: normal Ascending colon: normal without polyps or inflammatory changes Cecum: normal Terminal ileum: not visualized Impression: Normal colonoscopy Recommendations:: Follow up examination in about FIVE years or so, sooner if clinically indicated in view of history of polyps. Complications:: None Estimated blood obtained (mL): 0 Colonoscopy Component Colonoscopy Component Was a colonoscopy performed during today's procedure?: Yes Recommended follow up colonoscopy of at least 10 years?: No If no, follow up colonoscopy recommended in ___ years?: Five Reason for not recommending >/= 10 yr follow-up interval?: Hx of polyps
[2023-12-10 12:02] VITALS: BP 150/79; PULSE 89; RESP 16; O2SAT 97
[2023-12-10 12:12] VITALS: BP 152/74; PULSE 82; RESP 16; O2SAT 96
[2023-12-10 12:22] VITALS: BP 150/73; PULSE 82; RESP 16; O2SAT 93
--- NOTE | 2023-12-10 12:28 | HMH.SCOPE ---
Procedure: Date: 12/10/23 Patient Date of :: 1950 Procedure Performed:: Screening colonoscopy Indications:: Colon cancer screening Performing Provider:: Jaclyn Torres MD Referring Provider:: Debbie Torres APRN Sedation:: Propofol Procedure:: After placing the patient in the left lateral decubitus position, the colonoscopy was gently inserted into the rectum and under direct visualization advanced to the cecum which was identified by transillumination in the right lower quadrant, identification of the ileocecal valve, appendiceal orifice, and cecal strap. Color, texture, mucosa, and anatomy of the colon were carefully examined with the scope. Findings:: Anal canal: normal Rectum: normal, residual fecal material noted Sigmoid colon: normal without polyps or inflammatory changes, fecal material remaining Descending colon: normal without polyps or inflammatory changes Splenic flexure: normal Transverse colon: normal without polyps or inflammatory changes Hepatic flexure: normal Ascending colon: normal without polyps or inflammatory changes Cecum: normal Terminal ileum: not visualized Impression: Normal colonoscopy Recommendations:: Follow up examination in about TEN years or so, sooner if clinically indicated. Complications:: None Estimated blood obtained (mL): 0 Colonoscopy Component Colonoscopy Component Was a colonoscopy performed during today's procedure?: Yes Recommended follow up colonoscopy of at least 10 years?: Yes
== END 2023-12-10 12:40 | disposition home or self-care (01) ==
LOC: OUTP 10:24
PROVIDERS: PCP Nurse Practitioner Family; Visit Provider Internal Medicine Gastroenterology
PROC: 0DJD8ZZ Inspection of Lower Intestinal Tract, Via Natural or Artificial Opening Endoscopic (ICD-10-PCS; CPT 45378; principal; 2023-12-10 11:30)
DX: Z86.010 Personal history of colon polyps (principal); Z12.11 Encounter for screening for malignant neoplasm of colon; E11.65 Type 2 diabetes mellitus with hyperglycemia
CPT/HCPCS: G0105; 82962; J7120

== ENCOUNTER 2024-04-07 09:29 | Outpatient (CLI) | payer MEDICARE, OTHER, SELFPAY ==
[2024-04-07 09:41] LABS: Microscopic, Urine URINE MICROSCOPIC (MICROSCOPIC)
[2024-04-07 10:22] LABS: Hematocrit 37.3 % (37.0-47.0); Hemoglobin 12.3 g/dL (12.2-16.2); Mean Corpuscular HGB Conc 32.9 g/dL (31.8-35.4); Mean Corpuscular Hemoglobin 28.7 pg (27.0-31.2); Mean Corpuscular Volume 87.2 fl (81-99); Platelet Count 195 K/mm3 (142-424); Red Blood Count 4.28 M/mm3 (4.20-5.40); Red Cell Distribution Width 17.3 % (11.5-17.5); White Blood Count 8.2 K/mm3 (4.8-10.8)
[2024-04-07 10:56] LABS: Albumin Level 3.8 g/dl (3.5-5.0); Chloride 102 mmol/L (98-107); Potassium 4.3 mmoL/L (3.5-5.1); Sodium 138 mmol/L (136-145)
[2024-04-07 10:59] LABS: Anion Gap 12.3 mEq/L (5-15); Blood Urea Nitrogen 43 mg/dl (7-17); Calcium 8.6 mg/dl (8.4-10.2); Carbon Dioxide 28 mmol/L (22.0-30.0); Estimated Glomerular Filt Rate 26 ml/min (>60); GFR (African American) 31 ML/MIN (>60); Glucose 247 mg/dl (74-100); Phosphorous 4.1 mg/dl (2.5-4.5)
[2024-04-07 12:47] LABS: Appearance,Urine CLEAR (Clear); Bilirubin,Urine Negative (Negative); Blood, Urine 2+ (Negative); Color,Urine YELLOW (Yellow); Glucose,Urine (UA) Negative (Negative); Ketones,Urine Negative (Negative); Leukocyte Esterase,Urine Negative (Negative); Nitrate,Urine Negative (Negative); Protein,Urine 2+ (Negative); Specific Gravity, Urine 1.025 (1.005-1.030); Urobilinogen,Urine 0.2 EU/dl (0.2)
[2024-04-07 12:59] LABS: Creatinine,Urine Random 81 mg/dL (Not Estab.)
[2024-04-07 13:11] LABS: WBC,Urine Occasional #/hpf (0-3)
[2024-04-07 13:12] LABS: Bacteria,Urine Trace /lpf
[2024-04-07 13:16] LABS: Microalbumin/Creatinine Ratio 441.9
== END 2024-04-07 23:59 | disposition home or self-care (01) ==
LOC: LAB 09:31
PROVIDERS: PCP Nurse Practitioner Family; Visit Provider Nurse Practitioner
DX: R80.1 Persistent proteinuria, unspecified (principal)
CPT/HCPCS: 36415; 80069; 81001; 82043; 82570; 84156; 85027

== ENCOUNTER 2024-11-19 13:41 | Emergency (ER) | payer MEDICARE, OTHER, SELFPAY ==
[2024-11-19] VITALS (8 sets, daily range): BP systolic 170–196; BP diastolic 74–99; PULSE 71–84; RESP 16–18; TEMP 36.6–37.1; O2SAT 93–99; BMI 28.0
--- NOTE | 2024-11-19 13:39 | ECG_ITS ---
APPROVED REPORT Exam: Resting ECG HR:76 bpm ECG Measurements Heart Rate 76 AXES VT 177 P 75 QRSd 91 QRS 47 QT 391 T 64 QTc 422 Conclusion SINUS RHYTHM NORMAL ECG Electronically signed by : EMILY VINCENT, 11/19/2024 23:29:17
--- NOTE | 2024-11-19 13:44 | PC.NURSE ---
FSBS 119 at this time.
--- OUTSIDE RECORDS SUMMARY | 2024-11-19 13:48 | XMS_ITS | Clinical Summary ---
Author Organization [facility] Address [address] [place] [id number] Phone Care Team Providers Care Social Worker Health Services Name Role Phone Maine Patel [phone] Conditions or Problems Problem Name Problem Code Onset Date Status Entry Date Provider Comment Standard Description Annotate PAIN IN HIP, RIGHT M25.551 (ICD-10-CM ) 02/12 Active 02/12 Mainejone Patel Pain in right hip *AFTRCR FOLLOW SRG MUSCULOSKELETAL SYSTEM NEC Z48.89 (ICD-10-CM ) 08/26 Active 08/26 Pat Short MA Encounter for other specified surgical aftercare OVERWEIGHT 706622473 (SNOMED CT) Active Pat Short MA Overweight LUMBAR SPONDYLOLISTHESI S, ACQUIRED, 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 (ICD-10-CM ) Active Ly Joshi TRANSPORTATION MANAGER 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 sis, lumbar region LUMBAR RADICULOPATHY 808627129 (SNOMED CT) Active Dianne Chatterjee MA Lumbar radiculopathy Medications Medication Instructions Start Date Stop Date Generic Name NDC Provider ESTRADIOL 0.1 MG/GM CREA estradiol 62824347905 Flor Colón MYRBETRIQ 25 MG [id number] mirabegron 87691377094 Flor Colón FLUCONAZOLE 150 MG TABS fluconazole 97165601059 Flor Colón OMEPRAZOLE 40 MG CPDR omeprazole 38227840890 Flor Colón VENLAFAXINE HCL ER 75 MG [id number] venlafaxine 14987513581 Flor Colón GNP ADVANCED PROBIOTIC CAPLET 60CT take one caplet BY MOUTH EVERY DAY GNP ADVANCED PROBIOTIC CAPLET 60CT Flor Katarzyna OMNIPOD DASH PODS (GEN 4) USE DIRECTED (CHANGE omnipod every 72 hours) insulin pump cart,cont inf,bt 67605934458 Flor Katarzyna ROSUVASTATIN CALCIUM 40 MG TABS rosuvastatin 20399692811 Flor Colón Vitamin C 500 mg tablet TAKE ONE TABLET BY MOUTH TWICE DAILY ascorbic acid (vitamin c) 49879323717 Flor Colón LEVOTHYROXINE SODIUM 112 MCG TABS levothyroxine 27938856310 Flor Colón INSULIN LISPRO 100 UNIT/ML SOLN insulin lispro 72830845899 Leonid Colón GABAPENTIN 600 MG TABS gabapentin 09281613417 Flor Colón CARVEDILOL 25 MG TABS carvedilol 56514028646 Flor Colón VASCEPA 0.5 GM CAPS icosapent ethyl 06127590780 Flor Colón ALLOPURINOL 100 MG TABS allopurinol 61013952391 Flor Colón OMEPRAZOLE 10 MG CPDR omeprazole 08882874355 Flor Colón VENLAFAXINE HCL 25 MG TABS venlafaxine 98354621798 Flor Colón TRAMADOL HCL 50 MG TABS Take 1 tablet by mouth every six hours as needed for pain tramadol 39543430444 Ki Lawson MD TRAMADOL HCL 50 MG TABS Take 1 tablet by mouth every six hours tramadol 94018212406 Ki Lawson MD TRAMADOL HCL 50 MG TABS tramadol 68587005924 Ly STROUD TRAMADOL HCL 50 MG TABS Take 1 tablet by mouth every six hours as needed for pain tramadol 69662066616 Ly STROUD OMNIPOD DASH PODS (GEN 4) insulin pump cart,cont inf,bt 53708850602 Dianne Chatterjee MA ROSUVASTATIN CALCIUM 40 MG TABS rosuvastatin 24929408445 Dianne Chatterjee MA VASCEPA 1 GM CAPS icosapent ethyl 31350308279 Dianne Chatterjee MA NITROFURANTOIN MONOHYD MACRO 100 MG CAPS nitrofurantoin monohyd/m-cryst 97298484317 Dianne Chatterjee MA CEFDINIR 300 MG CAPS cefdinir 42854974108 Dianne Chatterjee MA LEVOXYL 112 MCG TABS levothyroxine 78963389501 Dianne Chatterjee MA LEVOFLOXACIN 500 MG TABS levofloxacin 38993360883 Dianne Chatterjee MA CEPHALEXIN 500 MG CAPS cephalexin 76875003666 Dianne Chatterjee MA TRAMADOL HCL 50 MG TABS tramadol 66979301980 Dianne Chatterjee MA INSULIN LISPRO 100 UNIT/ML SOLN insulin lispro 20711215922 Dianne Chatterjee MA OMEPRAZOLE 40 MG CPDR omeprazole 09820903630 Dianne Chatterjee MA HYDROCODONE-ACETA MINOPHEN 5-325 MG TABS hydrocodone-acet aminophen 85123453671 Dianne Chatterjee MA ALLOPURINOL 100 MG TABS allopurinol 52716177766 Dianne Chatterjee MA FLUCONAZOLE 150 MG TABS fluconazole 65845057178 Dianne Chatterjee MA OXYBUTYNIN CHLORIDE ER 10 MG [id number] oxybutynin chloride 97655492215 Dianne Chatterjee MA GABAPENTIN 600 MG TABS gabapentin 91320722697 Dianne Chatterjee MA CARVEDILOL 25 MG TABS carvedilol 46269633041 Dianne Chatterjee MA VENLAFAXINE HCL ER 75 MG [id number] venlafaxine 59141418267 Dianne Chatterjee MA FLUCONAZOLE 100 MG TABS fluconazole 56411357251 Dianne Chatterjee MA Medications Administered No information available. Allergies, Adverse Reactions, Alerts Allergy Name Reaction Description Start Date Severity Statu s Provider CODEINE Critical Pat coy MA CODINE Critical No Longer Active Pat Short MA Allergy excluded fro m report: HYDROCODONE Critical Dianne Chatterjee MA CODINE Critical No Longer Active Dianne Chatterjee MA PERCOCET Critical Dianne Con brown MA Results Date Name Value Unit Range Flag Description Lab Report: CBC WITH DIFF MCV 88.0 fL 80.0-100.0 MCV [Entit ic volume] by Automated count HCT 39.5 % 34.0-45.0 Hematocrit [Volume Fraction] of Blood by Automated count HGB 12.6 g/dL 11.2-15.7 Hemoglobin [Mass/volume] in Blood WBC COUNT 11.4 10*3/uL 3.7-10.3 H leukocyte count, blood Plan of Care Type Date Detail Referral Orthopedic Refer [address], [address] Pending order X-Ray Lumbar AP Lateral & Flexion/Extension Pending order Greater trochant katalina bursa injection & follow up with ordering MD Pending order X-Ray Lumbar Fle xion/Extension Pending order X-Ray Lumbar Fle xion/Extension Pending order Dexa Bone Densit y Pending order Dexa Bone Densit y Pending order CT Lumbar withou t contrast Pending order Greater trochant katalina bursa injection & follow up with ordering Pending order Greater trochant katalina bursa injection & follow up with ordering Pending order CT Lumbar withou t contrast Pending order Greater trochant katalina bursa injection & follow up with ordering Pending Order exclud ed from report: Pending order X-Ray Lumbar AP Lateral / Flexion & Extension Pending order X-Ray Lumbar AP Lateral / Flexion & Extension Pending order X-Ray Lumbar AP & Lateral Pending order KAYLEIGH x 1 therapeu tic injection & follow up with ordering MD Pending order CT Lumbar withou t Contrast Pending order CT Lumbar withou t Contrast Pending order X-Ray Lumbar AP Lateral Procedures Code Procedure Name Date Entry Date [facility]-[id number] Flu Shot Previously Received [id number] Pneumonia Vaccine Previously Received 02/08/25 [id number] Medications Documented [id number] Flu Shot Previously Received [facility]-[id number] Pneumonia Vaccine Previously Received 01/05/20 [id number] Medications Documented [id number] Pneumonia Vaccine Previously Received 01/03/18 [id number] Greater trochanteric bursa injection & follow up with ordering [id number] Flu Shot Previously Received [id number] Pneumonia Vaccine Previously Received 29/10/21 [id number] Medications Documented [id number] Flu Shot Previously Received [id number] Pneumonia Vaccine Previously Received 29/09/16 [id number] Medications Documented [id number] Flu Shot Previously Received [id number] Pneumonia Vaccine Previously Received 30/08/19 [id number] Medications Documented [id number] Flu Shot Previously Received [id number] Pneumonia Vaccine Previously Received 01/08/02 [id number] Medications Documented [id number] Flu Shot Previously Received [facility]-[id number] Pneumonia Vaccine Previously Received 30/05/02 [facility]-[id number] Medications Documented [facility]-[id number] Flu Shot Previously Received [facility]-[id number] Medications Documented [facility]-[id number] Pneumonia Vaccine Previously Received 30/03/21 Vital Signs Date Name Value Unit Description BMI (Body Mass Index) 27.34 kg/m2 Bod y Mass Index (Ratio) Height 60 [in_us] height E&M Weight Measured 140 [lb_av] weight E& M Weight Measured 140 [lb_av] weight E& M Immunizations No information available. Advance Directives No information available.
--- OUTSIDE RECORDS SUMMARY | 2024-11-19 13:49 | XMS_ITS | Clinical Summary ---
Author Organization [facility] Address [address] [place] [id number] Care Team Providers Care Pharmacy Billing Adjudicator Name Role Phone Roman King LEACH TANK TENDER Primary Care Provider [phone] Allergies Active Allergy Reactions Criticality Noted Date Comments Gilberto Inhibitors Unknown - Patient states they do not know rxn details Low 05/13/2014 Cephalexin Other - please docum ent in the comment field High 11/25/2022 hypertension Codeine Other - please docum ent in the comment field Low 11/30/2012 Lisinopril Other - please docum ent in the comment field High 01/13/2023 Nitrofurantoin Unknown - Patient states they do not know rxn details Low 11/19/2012 Oxycodone Hallucinations Medium 07/29/2022 Oxycodone-Acetaminophen Other - please d ocument in the comment field Low 12/25/2020 Medications MULTIPLE VITAMIN PO 4 Active aspirin 81 MG EC tablet 7 Active carvedilol (Coreg) 25 MG tablet TAKE 1 TABLET TWICE DAILY. 9 Active cholecalciferol (Vitamin D-3) 125 MCG (5000 UT) capsule TAKE 1 CAPSULE Daily 4 Active gabapentin (Neurontin) 600 MG tablet Take by mouth 2 (two) times a day. 2 Active insulin lispro (HumaLOG) 100 UNIT/ML injection per pump 5 Active levothyroxine (Synthroid, Levoxyl) 112 MCG tablet 1 (one) time each day. 2 Active nitroglycerin (Nitrostat) 0.4 MG SL tablet 7 Active pantoprazole (ProtoNix) 40 MG EC tablet 9 Active rosuvastatin (Crestor) 40 MG tablet 9 Active traZODone (Desyrel) 50 MG tablet 7 Active dulaglutide (Trulicity) 0.75 MG/0.5ML solution pen-injector Inject under the skin every 7 (seven) days. 0 Active omeprazole (PriLOSEC) [address] capsule 1 Active venlafaxine XR (Effexor-XR) 75 MG 24 hr capsule Effexor XR 75 mg capsule,extended release Daily Active cetirizine (ZyrTEC) 10 MG tablet Take 1 tablet (10 mg) by mouth 1 (one) time each day. Active Icosapent Ethyl (Vascepa) 1 g capsule Take 2 capsules (2 g) by mouth 2 (two) times a day with meals. Active cyanocobalamin (Vitamin B-12) 500 MCG tablet Take 1 tablet (500 mcg) by mouth 1 (one) time each day. Active co-enzyme Q-10 30 MG capsule Take 1 capsule (30 mg) by mouth 1 (one) time each day. Active allopurinol (Zyloprim) 100 MG tablet TAKE 1 TABLET DAILY 90 tablet 3 3 Active Insulin Disposable Pump (Omnipod DASH Pods, Gen 4,) [facility] 3 Active Insulin Disposable Pump (Omnipod DASH Pods, Gen 4,) [facility] Omnipod Dash Pods (Gen 4) subcutaneous cartridge Active traMADol (Ultram) 50 MG tablet TAKE ONE TABLET BY MOUTH EVERY 6 HOURS MAY CAUSE DROWSINESS 2 Active estradiol (Estrace) 0.1 MG/GM vaginal cream 1in of cream to labia daily 2 g 3 Active alendronate (Fosamax) 70 MG tablet 4 Active Ascorbic Acid (vitamin C) 500 MG tablet Take 1 tablet (500 mg) by mouth 2 (two) times a day. 3 Active Myrbetriq 25 MG tablet 4 Active Insulin Lispro (Admelog, HumaLOG) 100 UNIT/ML injection vial 4 Active Active Problems Problem Noted Date Diagnosed Date 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sis, lumbar region 06/24/2022 01/23/2023 Arthritis 12/17/2021 01/23/2023 Coronary arteriosclerosis 12/17/20212022 Gastroesophageal reflux disease 12/17/2021 01/23/2023 Neuropathy 12/17/2021 01/23/2023 Status post three vessel coronary artery bypass 12/17/2021 01/23/2023 Type 2 diabetes mellitus 12/17/2021 023 Primary hypothyroidism 04/24/2020 Mixed hyperlipidemia 04/24/2020 Chronic kidney disease, stage IV (severe) 2018 Anemia 12/02/2016 Renal osteodystrophy 12/10/2014 Vitamin D deficiency 11/19/2012 Proteinuria 11/19/2012 Essential (primary) hypertension 11/19/2012 Immunizations Immunization Administration Dates Next Due Influenza, high-dose, quadrivalent 04/25/2023,,05/16/2021 Moderna COVID-19 Vaccine (Re d Cap) 12+ years 08/31/2020,08/02/2020 Tdap 04/20/2013 Zoster, live 04/20/2013 Family History Medical History Relation Name Comments Heart Problem Father Hypertension Father Breast cancer Mother Conversions - Other Mother Dialysis patient Diabetes Mother Hypertension Mother Relation Name Status Comments Father Mother Social History Tobacco Use Types Packs/Day Years Used Date Smoking Tobacco: Never Passive Smoke Exposure: Never Smokeless Tobacco: Never Tobacco Cessation:Counseling Given: Not Answered Comments No Sex and Gender Information Value Date Recorded Sex Assigned at Not on file Legal Sex Female 8:37 PM EDT Gender Identity Not on file Sexual Orientation Not on file Last Filed Vital Signs Vital Sign Reading Time Taken Comments Blood Pressure 141/75 04/16/2024 8:40 AM EST Pulse 95 04/16/2024 8:37 AM EST Temperature - - Respiratory Rate 18 04/16/2024 8:37 AM EST Oxygen Saturation 97% 04/16/2024 8:37 AM EST Inhaled Oxygen Concentration - - Weight 65.4 kg (144 lb 3.2 oz) 04/16/2024 8:37 A M EST Height 151.1 cm (4' 11.5 ) 04/16/2024 8:37 AM ES T Body Mass Index 28.64 04/16/2024 8:37 AM EST Plan of Treatment Upcoming Encounters Date Type Department Care Team (Late st Contact Info) Description 12/17/2024 12:00 PM EDT Office Visit [facility] [address] [place] [address] Isabel Womack, LEACH TANK TENDER [address] [facility] [address] [place] [address] Health Maintenance Due Date Last Done Comments [facility]-Depression Screening 1950 [facility]-Diabetes: Hemoglobin A1C 1950 [facility]-Hepatitis C Screening 1950 [facility]-Medicare Annual Wellness (AWV) 1950 [facility]-Infant/Child/Adol SDOH Screenings 1950 Diabetes: Dental Exam 1960 [facility]- SDOH Screenings 1968 [facility]-Adult SDOH Screenings 1968 [facility]-Pneumococcal Vaccine: 50+ Years (1 of 2 - PCV) 1969 CT Colonography 1995 Colonoscopy 1995 FIT-DNA 1995 FIT 1995 FOBT 1995 Sigmoidoscopy 1995 [facility]-Colorectal Cancer Screening 1995 [facility]-Breast Cancer Screening 2000 [facility]-RSV Vaccine: 60+ Years or (1 - Risk 60-74 years 1-dose series) 2010 [facility]-Zoster Vaccines (2 of 3) 06/15/2013 04/20/2013 [facility]-DTaP,Tdap,and Td Vaccines (2 - Td or Tdap) 04/20/2023 04/20/2013 [facility]-TODAN-95 Vaccine (4 - season) 2024 04/11/2021, 08/31/2020, 08/02/2020 [facility]-Bone Density Scan 06/18/2024 06/18/2023, 024 [facility]-Influenza Vaccine Completed 02/24/2024 , 04/25/2023, 02/21/2022, Additional history exists [facility]-Obesity Intervention Completed 024, 12/08/2023, 08/11/2023 HPV Vaccines Aged Out No longer eligi ble based on patient's age to complete this topic [facility]-HIB Vaccines Aged Out No longer e ligible based on patient's age to complete this topic [facility]-Hepatitis A Vaccines Aged Out No longer eligible based on patient's age to complete this topic [facility]-IPV Vaccines Aged Out No longer e ligible based on patient's age to complete this topic [facility]-Rotavirus Vaccines Aged Out No lo nger eligible based on patient's age to complete this topic Insurance MEDICARE [facility] Care Teams Pharmacy Billing Adjudicator Relationship Specialty Start Date End Date Roman King APRN [address] [place] [id number] PCP - General 01/21/22
--- OUTSIDE RECORDS SUMMARY | 2024-11-19 13:49 | XMS_ITS | Clinical Summary ---
Author Organization [facility] Address [address] [facility] [address] [place] [phone] Phone Care Team Providers Care Service Or Work Dispatcher Chief Name Role Phone Roman Mercer Primary Care Provider [phone] Allergies Active Allergy Reactions Criticality Noted Date Comments Codeine Other (See Comments) Low 11/30/2012 over sedation Cephalexin Other (See Comments) Low 11/25/2022 hypertension Nitrofurantoin Hives Medium 11/19/2012 Oxycodone-Acetaminophen Other (See Comments) Low over sedation Oxycodone Other (See Comments) Low 08/08/2022 Over sedation with the smallest dose Medications insulin lispro (HUMALOG) 100 unit/mL SubQ Solution Humalog U-100 Insulin 100 unit/mL subcutaneous solution Active VASCEPA 1 gram Oral Capsule Take 2 Caps by mouth 2 times daily. 0 Active rosuvastatin (CRESTOR) 40 mg Oral Tablet Take 1 Tab by mouth daily. 0 Active LEVOthyroxine (SYNTHROID) 112 mcg Oral Tablet Take 1 Tab by mouth daily. 0 Active gabapentin (NEURONTIN) 600 mg Oral Tablet Take 1 Tab by mouth 3 times daily. 0 Active omeprazole (PRILOSEC) 40 mg Oral Capsule, Delayed Release(E.C.) Take 1 Cap by mouth daily. 0 Active venlafaxine (EFFEXOR-XR) 75 mg Oral Capsule, Sust. Release 24 hr Take 1 Cap by mouth daily. Active carvediloL (COREG) 25 mg Oral Tablet Take 1 Tab by mouth 2 times daily. 0 Active allopurinoL (ZYLOPRIM) 100 mg Oral Tablet Take 1 Tab by mouth daily. 0 Active MINIMED QUICK SET 32 Misc Infusion SetIndications:T ype 2 diabetes mellitus with hyperglycemia, with long-term current use of insulin (HCC) Change infusion set every 72 hours as directed. Dx E11.65 30 Each 3 0 Active PARADIGM RESERVOIR 3 mL Misc MiscIndications: Type 2 diabetes mellitus with hyperglycemia, with long-term current use of insulin (HCC) Change every 72 hours as directed. Dx E11.65 30 Each 3 0 Active traMADoL (ULTRAM) 50 mg Oral Tablet TAKE ONE TABLET BY MOUTH EVERY 6 HOURS MAY CAUSE DROWSINESS 2 Active insulin, pump subcutaneous Misc Misc Subcutaneous (Inject under the skin) continuous. Omnipod pump Basal rate 2.5units/hour from 3 am to 12:00 pm, 12:00 pm to 3 am 1.85 units/hour- patient gives bolus per sliding scale. Active flash glucose scanning reader (SWYFSTYLE SOLOMON 14 DAY READER) Misc Misc by [facility] [place]Non-Drug; Combo Route) route. Active aspirin 81 mg Oral Tablet, Chewable Take 1 Tablet by mouth daily. 3 Active acetaminophen (TYLENOL) 500 mg Oral Tablet Take 2 Tablets by mouth every 6 hours. 3 Active Active Problems Problem Noted Date Diagnosed Date Orbital myositis of right side 11/28/2022 Ptosis of right eyelid 11/26/2022 Stage 3b chronic kidney disease 11/26/2022 CAD (coronary artery disease) 11/26/2022 Acute intractable headache 11/26/2022 Nausea 11/26/2022 Other headache syndrome 11/26/2022 Lumbar foraminal stenosis 08/14/2022 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sis of multiple sites in spine 01/2023 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sis, lumbar region 06/24/2022 Type 2 diabetes mellitus wit h hyperglycemia, with long-term current use of insulin 04/24/2020 Primary hypothyroidism 04/24/2020 Mixed hyperlipidemia 04/24/2020 Surgical History Surgery Date Site/Laterality Comments SECTION GALLBLADDER SURGERY APPENDECTOMY CORONARY ARTERY BYPASS GRAFT SHOULDER SURGERY Right LUMBAR FUSION 08/14/2022 Spine/N/A L5/S1 ANTERIOR LUMBAR INTERBODY FUSION; Surgeon: Ki Lawson MD; Location: [facility]; Service: Neurosurgery Medical devices from this surgery are in the Medical Devices section. ARTERY BIOPSY 11/29/2022 Right right temporal artery biopsy; Surgeon: Bam Quintana DO; Location: [facility]; Service: General Medical History Medical History Date Comments High blood pressure Colon polyp Diabetes mellitus (HCC) Thyroid disease TIA (transient ischemic attack) x 2- 2019, no deficits Arthritis Heartburn CAD (coronary artery disease) Encounter for blood transfusion Anesthesia-slow to wake Family History Medical History Relation Name Comments Diabetes Brother Heart Disease Father High Blood Pressure Father Unknown Father lungs black fro m tractor exhaust Arthritis Mother Cancer Mother uterine/breast Diabetes Mother Heart Disease Mother Kidney Disease Mother Stroke Mother Anesth Problems Neg Hx Relation Name Status Comments Brother Alive Father Mother Social History Tobacco Use Types Packs/Day Years Used Date Smoking Tobacco: Never Smokeless Tobacco: Never Tobacco Cessation:Counseling Given: Not Answered Alcohol Use Standard Drinks/Week Comments Never 0 (1 standard drink = 0.6 oz pur e alcohol) Overall Financial Resource Strain (CARDIA) Answe r Date Recorded How hard is it for you to pa y for the very basics like food, housing, medical care, and heating? Not hard at all 11/28/2022 PHQ-2 Answer Date Recorded PHQ-2 Total Score 0 11/28/2022 Exercise Vital Sign Answer Date Recorde d On average, how many days pe r week do you engage in moderate to strenuous exercise (like a brisk walk)? 0 days 11/28/2022 On average, how many minutes do you engage in exercise at this level? 0 min 11/28/2022 Hunger Vital Sign Answer Date Recorded Within the past 12 months, y ou worried that your food would run out before you got the money to buy more. Never true 11/29/19 23 Within the past 12 months, t he food you bought just didn't last and you didn't have money to get more. Never true 11/28/2022 PRAPARE - Transportation Answer Date Re corded In the past 12 months, has l ack of transportation kept you from medical appointments or from getting medications? No 11/08 In the past 12 months, has l ack of transportation kept you from meetings, work, or from getting things needed for daily living? No 11/28/2022 Comments No Sex and Gender Information Value Date Recorded Sex Assigned at Not on file Legal Sex Female 8:59 PM EDT Gender Identity Not on file Sexual Orientation Not on file Obstetrics History Last Filed Vital Signs Vital Sign Reading Time Taken Comments Blood Pressure 160/76 11/30/2022 9:09 AM EDT Pulse 65 11/30/2022 9:09 AM EDT Temperature 36.6 C (97.8 F) 11/30/2022 9:09 AM EDT Respiratory Rate 16 11/30/2022 9:09 AM EDT Oxygen Saturation 95% 11/30/2022 9:09 AM EDT Inhaled Oxygen Concentration - - Weight 63.6 kg (140 lb 3.4 oz) 11/26/2022 9:26 P M EDT Height 151.1 cm (4' 11.5 ) 11/26/2022 9:26 PM ED T Body Mass Index 27.85 11/26/2022 9:26 PM EDT Plan of Treatment Health Maintenance Due Date Last Done Comments Wellness Exam Medicare 1953 Microalbuminuria 1960 Diabetic Eye Exam 1968 Hepatitis C Screening 1968 Pneumococcal Vaccine 50+ (1 of 2 - PCV) 1969 Cologuard 1995 Colon Cancer Screening 1995 Colonoscopy 1995 FIT 1995 Sigmoidoscopy 1995 Virtual Colonography 1995 RSV or 60+ (1 - Ris k 60-74 years 1-dose series) 2010 Zoster (2 of 3) 06/15/2013 04/20/2013 DTaP/TDaP/Td (2 - Td or Tdap) 04/20/2023 04/20/2013 Hemoglobin A1c 05/28/2023 11/26/2022, 08/08/2022, 04/24/2020 Lipids 11/27/2023 11/26/2022 COVID-19 Vaccine (2023-2 5 season) 2024 04/11/2021, 08/31/2020, 08/02/2020 Breast Cancer Screening 10/14/2024 10/14/2022 Influenza Vaccine (Season Ended) 2025 04/25/2023, 02/21/2022, 05/16/2021 Bone Density Screening Completed , 06/18/2023 Hepatitis B Vaccine Aged Out No longe r eligible based on patient's age to complete this topic Meningococcal B Vaccine Aged Out No l onger eligible based on patient's age to complete this topic Medical Devices Implanted Type Area Anaesthetic Technician Device Identifier Shelf Expiration Date Model / Serial / Lot Bilateral Iol Lower Back Metal Cage/ 2 Rods/8 Screws Cervical Fusion Right Shoulder Screws/ Anchors Kt Graft 2.8ml Infs Sm Clara Matrx 2-Tn Bnd 5ml Strl H2o - [id number] Implanted:Qty: 1 on 08/14/2022 by Ki Lawson MD at [facility] Bilateral: Spine Lumbar [employer]:SOFAMO R DANEK 06/09/2024 [id number] / / [id number] Cage Modulus Alif [id number] 10 Degree - [id number] Implanted:Qty: 1 on 08/14/2022 by Ki Lawson MD at [facility] N/A: Spine Lumbar NUVASIVE 08/12/2026 [id number] / / [id number] Highland 3dp Interfixated Alif [id number] 2pk - [id number] Implanted:Qty: 2 on 08/14/2022 by Ki Lawson MD at [facility] N/A: Spine Lumbar NUVASIVE 04/03/2026 [id number] / / [id number] Procedures Procedure Name Priority Date/Time Associated Diagnosis Comments DX BONE DENSITY AXIAL SKELETON Routine 06/18/2023 10:06 AM EST Postmenopausal osteoporosis LIPID SCREEN Routine 11/26/2022 1:59 PM EDT HEMOGLOBIN A1C Routine 11/26/2022 1:59 PM EDT from Last 3 Months or Most Recently Relevant to Health Maintenance Results * DX BONE DENSITY AXIAL SKELETON (06/18/2023 10:06 AM EST) Anatomical Region Laterality Modality Dexa Scan 06/18/2023 Impressions 06/20/2023 3:25 PM EST Indication: The patient is a female age 65 or older who requires a bone density assessment. Study was performed on [employer] APEX 5. Bone Density: Region BMD T-score Z-score Femoral Neck (Left) 0.573 -2.5 -0.5 Total Hip (Left) 0.792 -1.2 0.4 Femoral Neck (Right) 0.573 -2.5 -0.5 Total Hip (Right) 0.796 -1.2 0.5 1/3 Radius (Left) 0.579 -1.9 0.4 World Health Organization criteria for BMD interpretation classify patients as: Normal (T-score at or above -1.0), Low Bone Density (T-score between -1.0 and -2.5), or Osteoporotic (T-score at or below -2.5). T Scores are reported in Postmenopausal women and in men age 50 and older. Z-scores are reported in females prior to menopause and in males younger than age 50. 10-year Fracture Risk: FRAX not reported because: Some T-score for Spine Total or Hip Total or Femoral Neck at or below -2.5 Clinical Information Provided by Patient: Has used or is currently using the following medications: Vitamin D, Anticonvulsant, Thyroid medication, PPI Has had or currently has the following medical conditions: Diabetes Mellitus, Back pain, Hip pain Patient maximum height was 59.0 Menopause Age: 52 Interpretation: Bone mineral density is in the osteoporotic range. The spine portion of the study is omitted due to surgical artifact and hypertrophic changes within the region of interest. Medical evaluation for secondary causes of low bone density may be appropriate. A minimum of two years may be required between bone density studies due to inherent testing precision limitations. Intervals between BMD testing should be determined according to each patient's clinical status: typically one year after initiation or change of therapy is appropriate, with longer intervals once therapeutic effect is established. Reported by: Brooke Martinez PA-C, CCD on 06/19/2023 2:13:00 PM. us Ki Lawson MD G DEXA ORDERABLES Final Resu lt * (ABNORMAL) HEMOGLOBIN A1C (11/26/2022 1:59 PM EDT) Hgb A1C 9.7(H) 4.2 - 5.6 % 11/26/2022 3:06 PM EDT [facility]REFERRED [facility] Est. Avg Glucose 232 mg/dL 11/26/2022 3:06 PM EDT [facility] Blood VENOUS BLOOD / Unknown Venipuncture / Unknown 11/26/2022 1:59 PM EDT 11/26/2022 2:05 PM EDT Narrative [facility]REFERRED [facility] - 11/26/2022 3:06 PM EDT REFERENCE RANGE: Normal: 4.0-5.6% Pre-diabetes: 5.7-6.4% Provisional diagnosis of diabetes: >6.4% Hgb F>10% and anything which shortens red cell survival, such as hemolytic anemia, or unstable hemoglobin variants such as HbSS, HbSC, or HbCC, will lower the HbA1c value associated with a given level of glycemic control. us Lisa Serrano DO CHEMISTRY ORDERABLES Fi nal Result [facility] [address] [place] [address] * (ABNORMAL) LIPID SCREEN (11/26/2022 1:59 PM EDT) Cholesterol 143 <200 mg/dL 11/26/2022 3:14 PM EDT [facility] Comment: < 200 Desirable 200 - 239 Borderline High >= 240 High Triglyceride 383(H) <150 mg/dL 11/26/2022 3:14 PM EDT [facility] Comment: < 150 Normal 150 - 199 Borderline High 200 - 499 High >= 500 Very High HDL 29(L) >=40 mg/dL 11/26/2022 3:14 PM EDT [facility] [employer] [employer] Comment: > 60 Optimal 40 - 60 Acceptable < 40 Low LDL Calculated 56 <100 mg/dL 11/26/2022 3:14 PM EDT [facility] [employer] Comment: < 100 Optimal 100 - 129 Near or above optimal 130 - 159 Borderline High 160 - 189 High >= 190 Very High Non-HDL-C Calculated 114 <=129 mg/dL 11/26/2022 3:14 PM EDT [facility] [employer] [employer] Comment: <130 Desirable 130-159 Above Desirable 160-189 Borderline High 190-219 High >= 220 Very High Fasting Specimen? No None 023 3:14 PM EDT [facility] Blood VENOUS BLOOD / Unknown Venipuncture / Unknown 11/26/2022 1:59 PM EDT 11/26/2022 2:05 PM EDT us Lisa Serrano DO CHEMISTRY ORDERABLES Fi nal Result [facility] [employer] [address] [place] [address] [facility] [address] [place] [address] from Last 3 Months or Most Recently Relevant to Health Maintenance Insurance MEDICARE [place] PART A AND B [employer] FOR LIFE MEDIC[place] [address] [address] [place] [address] Advance Directives For more information, please contact: [phone] * Full Code (Latest Code Status on File) Date Activated Date Inactivated Comments 11/25/2022 8:31 PM 11/30/2022 5:15 PM * Full Code Date Activated Date Inactivated Comments 08/14/2022 3:40 PM 08/15/2022 8:17 PM Care Teams Service Or Work Dispatcher Chief Relationship Specialty Start Date End Date Roman Mercer [address] [place] [address] PCP - General Family Medicine 04/24/20
--- OUTSIDE RECORDS SUMMARY | 2024-11-19 13:49 | XMS_ITS | Continuity of Care Document ---
[facility] Organization [facility] Address [address] [place] [address] Care Team Providers Care Unloading Checker Name Role Phone DYLAN KING Primary Care Provider MAKENZIE Dahl Merchandise Buyer [phone] STEPH BLAS Director Of Consumer Marketing DENIS RAMIREZ Court Assistant Assessment No assessment recorded. Plan of Treatment Reminders Order Date Submit Date Provider Last Modified By Organization Details Last Modified Time Details Appointments Medicare AWE 40mins 2024 11:00A M Dylan King, GAMA Not available Not available Not available Follow Up 20 2024 01:00P M Margarita Banks APRN Not available Not available Not available Lab vaginal pathogens panel, ERNESTINA+probe , vaginal fluid 2024 025 [facility], [address], [address], [place], [address], 09/30/2024 01:06:56 urinalysi s, dipstick 2024 025 [facility], [address] [place] [address], [place], [address], 09/27/2024 14:06:26 culture, urine 2024 025 RABIA [facility], [address], [address], [place], [address], 09/30/2024 01:06:56 Referral None recorded. Procedures None recorded. Surgeries None recorded. Imaging None recorded. Medication Orders None recorded. Patient TargetsNo targets recorded. Patient InstructionsNo instructions recorded. Reason for Referral None Reported. Results Created Date Observation Date Name Description Value Unit Range Abnormal Flag Note LastModifiedBy Organization Detail LastModifiedTime 09/28/19 25 09/27/2024 urina lysis , dipst ick Leukocytes Small Not Available [address], [address], 09/27/2024 11:53:59 09/28/19 25 09/27/2024 urina lysis , dipst ick Nitrite negati ve Not Available [address], [address], 09/27/2024 11:53:59 09/28/19 25 09/27/2024 urina lysis , dipst ick Urobilinogen .2 Not Available Saad [address], [address], 09/27/2024 11:53:59 09/28/19 25 09/27/2024 urina lysis , dipst ick Protein 300 Not Available [address], [address], 09/27/2024 11:53:59 09/28/19 25 09/27/2024 urina lysis , dipst ick pH 5.5 Not Available [address], [address], 09/27/2024 11:53:59 09/28/19 25 09/27/2024 urina lysis , dipst ick Blood Non-He molyze d: Trace Not Available [address], [address], 09/27/2024 11:53:59 09/28/19 25 09/27/2024 urina lysis , dipst ick Specific [place] 1.030 Not Available [address], [address], 09/27/2024 11:53:59 09/28/19 25 09/27/2024 urina lysis , dipst ick Ketone Negati ve Not Available [address], [address], 09/27/2024 11:53:59 09/28/19 25 09/27/2024 urina lysis , dipst ick Bilirubin Negati ve Not Available [address], [address], 09/27/2024 11:53:59 09/28/19 25 09/27/2024 urina lysis , dipst ick Glucose Negati ve Not Available [address], [address], 09/27/2024 11:53:59 09/28/19 25 09/27/2024 urina lysis , dipst ick Appearance Clear Not Available [address], [address], 09/27/2024 11:53:59 09/28/19 25 09/27/2024 urina lysis , dipst ick Color Yellow Not Available [address], [address], 09/27/2024 11:53:59 Result Notes None recorded. Problems Name Problem SNOMED Code Status Onset Date Resolution Date Notes Provider Name and Address Organization Details Recorded Time Type 2 diabetes mellitus 32294772 Active 2021 Dylan King, DIRECTOR CORPORATE SECURITY [address], [place], [address], [place] - [facility] 10:07:29 Hypertensive disorder 78842240 Active 2021 Dylan King, DIRECTOR [employer]POR[employer] SEC[employer] [address], [place], [address], [place] - [facility] 2 10:07:09 Hypercholester olemia 79295947 Active 2021 Dylan King, DIRECTOR [employer] [address], [place], [address], [place] [facility] 2 10:07:05 Gastroesophage al reflux disease 469008098 Active 2021 Dylan King, DIRECTOR [employer] [address], [place], [address], [place] [facility] 2 10:06:49 Hypothyroidism 24139035 Active 2021 Dylan King, DIRECTOR [employer] SEC[employer]ITY [address], [place], [address], [place] [facility] 2 10:07:12 Neuropathy 668510075 Active 2021 Dylan King, DIRECTOR [employer]POR[employer] SECURITY [address], [place], [address], [place] [facility] 2 10:07:19 Arthritis 4972358 Active 2021 Dylan King, DIRECTOR [employer] SEC[employer]ITY [address], [place], [address], [place] [facility] 2 10:06:47 Coronary arterioscleros is 69974723 Active 2021 Dylan King, DIRECTOR [employer]ITY [address], [place], [address], [place] [facility] 2 10:18:21 Coronary artery bypass grafts x 3 Active 2021 Dylan King, DIRECTOR [employer]ITY [address], [place], [address], [place] [facility] 2 10:18:34 Problem Notes None recorded. Procedures Surgical History Date Name Laterality Status Provider Name and Address Organization Details Recorded Time 025 Advance Care Planning active Fina Vasquez [place] - [facility] 11/19/2024 10:41:02 025 Functional Status Assessed active Fina Vasquez [place] - [facility] 11/19/2024 10:41:02 024 Date of Last Colonoscopy completed Dia Stears [place] - [facility] 2024 13:27:50 024 Medication Reconcilliation completed Fina Vasquez [place] [facility] 12/02/2023 10:36:18 023 In and Out Catheterization completed Margarita Banks, DIRECTOR [employer] SEC[employer]ITY [address], [place], [address] [place] - [facility] 02/13/2023 14:34:26 023 Medication Reconcilliation completed Finaradha Vasquez [place] - [facility] 01/31/2023 10:55:15 023 Medication Reconcilliation completed Finaradha Vasquez [place] - [facility] 01/06/2023 10:21:27 023 Medication Reconcilliation completed Fina Vasquez [place] - [facility] 12/12/2022 10:55:58 023 Medication Reconcilliation completed Finaradha Vasquez [place] - [facility] 11/25/2022 14:44:11 023 Date of Last Mammogram completed Dia Stears [place] - [facility] 10/17/2022 13:02:19 023 Most Recent Mammogram completed Dia Stears [place] - [facility] 10/17/2022 13:02:44 023 Back Surgery completed Fina Vasquez [place] [facility] 12/02/2023 10:40:15 022 Most Recent Bone Density completed Dia Stears [place] - [facility] 12/20/2021 15:34:15 022 Stress test completed Dia Stears [place] [facility] 12/20/2021 15:34:16 021 Date of Last Pap Smear completed Fina Vasquez [place] [facility] 02/04/2022 10:35:34 019 Back Surgery completed Dia Stears [place] [facility] 12/20/2021 15:34:17 017 Cardiac Surgery completed Dia Stears [place] [facility] 12/20/2021 15:34:17 012 Eye Surgery completed Dia Stears [place] [facility] 12/20/2021 15:34:17 003 Hysterectomy completed Dia Stears [place] [facility] 12/20/2021 15:34:17 002 Hysterectomy completed Fina Pedro [place] - [facility] 12/02/2023 10:40:15 970 Caesarean Section completed Fina Pedro [place] [facility] 12/02/2023 10:40:15 970 Caesarean Section completed Dia Stears [place] [facility] 12/20/2021 15:34:16 968 Appendectomy completed Fina Pedro [place] [facility] 12/02/2023 10:40:15 967 Appendectomy completed Dia Stears [place] [facility] 12/20/2021 15:34:17 965 Tonsillectomy completed Dia Stears [place] [facility] 12/20/2021 15:34:16 Hysterectomy completed Dia Stears [place] [facility] 12/17/2021 09:25:36 Back Surgery [place] Dia [place]ars [place] [facility] 12/17/2021 09:26:52 Colonoscopy [place] Dia [place]ars [place] [facility] 12/17/2021 09:27:04 echocardiography completed Dia Stears [place] [facility] 12/17/2021 09:27:44 cardiac catheterization completed Dia Stears [place] [facility] 12/17/2021 09:28:02 CABG completed Dia [place]ars [place] [facility] 12/17/2021 09:28:16 section completed Dia Stears [place] [facility] 12/17/2021 09:31:50 Cholecystectomy, laparoscopic completed Dia Stears [place] [facility] 12/17/2021 09:31:56 Appendectomy [place] Dia Stears [place] [facility] 12/17/2021 09:32:01 Gastrointestinal Surgery completed Dia Stears [place] [facility] 12/20/2021 15:34:16 Imaging Results None recorded. Procedure Notes None recorded. Medical Equipment None Reported. Allergies Allergen ID Allergen Name Allergen Category Reaction Reaction Severity Criticality Documentation Date Start Date Code Code System Note Provider Name and Address Organization Details Recorded Time 018084 amna rehman medicatio n rash Not available high 12/17/2021 14046 RxNorm Fina Vasquez null, [place] - [facility] 2 10:17:08 682955 Oxycontin medicatio n hallucina tions moderate high 12/17/2021 43105 6 RxNorm Fina Vasquez [place] - [facility] 2 10:18:04 765275 codeine medicatio n rash moderate high 12/17/2021 2670 RxNorm Fina Vasquez [place] - [facility] 2 10:16:43 291136 acetamino phen / oxycodone medicatio n hallucina tions severe high 12/17/2021 64166 3 RxNorm Fina Vasquez [place] [facility] 2 10:17:43 747932 cephalexi n medicatio n eye swelling Not available low 11/11/2022 2231 RxNorm Fina Vasquez [place] - [facility] 3 12:54:33 835090 Macrobid medicatio n diarrhea moderate high 01/13/2023 21571 1 RxNorm vomit ing and diarr hea Fina Vasquez null[place] - [facility] 3 10:16:12 Medications Name Sig Start Date Stop Date Status Note LastModified by Organization Details LastModified Time Prescript ion - Prior Authoriza tion Request active Not Available Not Available Not Available gnp advanced probiotic caplet 60ct take one caplet BY MOUTH EVERY DAY 11/19 completed Not Available Not Available Not Available cyclobenz aprine 10 mg tablet TAKE ONE TABLET BY MOUTH THREE TIMES DAILY NEEDED FOR MUSCLE SPASMS MAY CAUSE DROWSINE SS 07/09 completed Not Available Not Available Not Available amoxicill in 500 mg capsule TAKE ONE CAPSULE BY MOUTH TWICE DAILY FOR 7 DAYS -- FINISH ALL MEDICINE -- 02/13 completed Not Available Not Available Not Available fluconazo le 100 mg tablet TAKE ONE TABLET BY MOUTH A ONE-TIME DOSE DIRECTED 11/19 completed Not Available Not Available Not Available carvedilo l 25 mg tablet TAKE 1 TABLET TWICE A DAY active Not Available Not Available No t Available nystatin 100,000 unit/mL oral suspensio n Take 5 mL 3 times a day by oral route for 5 days, for thrush. swish and spit. 12/30 completed Not Available Not Available Not Available prednison e 10 mg tablet TAKE ONE (1) TABLET TWICE A DAY BY ORAL ROUTE FOR TWO (2) DAYS. 07/09 completed Not Available Not Available Not Available venlafaxi ne ER 75 mg capsule,e xtended release 24 hr TAKE 1 CAPSULE DAILY active Not Available Not Available No t Available gabapenti n 600 mg tablet TAKE ONE TABLET BY MOUTH THREE TIMES DAILY MAY CAUSE DROWSINE SS 2024 active Not Available Not Available Not Avai lable doxycycli ne hyclate 100 mg capsule Take 1 capsule twice a day by oral route for 10 days. 07/09 completed Not Available Not Available Not Available Vitamin C 500 mg tablet Take 1 tablet twice a day by oral route for 30 days. 2023 active Not Available Not Available Not Avai lable oxybutyni n chloride ER 10 mg tablet,ex tended release 24 hr TAKE ONE TABLET BY MOUTH EVERY DAY 08/22 completed Not Available Not Available Not Available fosfomyci n trometham ine 3 gram oral packet Take 1 packet every other day by oral route for 10 days. 10/29 completed Not Available Not Available Not Available fluconazo le 150 mg tablet TAKE ONE TABLET BY MOUTH NOW, REPEAT DOSE IN THREE (3) DAYS 07/09 completed Not Available Not Available Not Available sulfameth oxazole 400 mg-trimet hoprim 80 mg tablet TAKE ONE TABLET BY MOUTH EVERY TWELVE HOURS FOR 10 DAYS -- FINISH ALL MEDICINE -- 09/30 completed Not Available Not Available Not Available ampicilli n 500 mg capsule Take 1 capsule every 6 hours by oral route for 5 days. 02/13 completed Not Available Not Available Not Available hydrocodo ne 5 mg-acetam inophen 325 mg tablet TAKE ONE TABLET BY MOUTH TWICE DAILY NEEDED MAY CAUSE DROWSINE SS 02/21 completed Not Available Not Available Not Available prednison e 20 mg tablet TAKE ONE TABLET BY MOUTH TWICE DAILY --TAKE WITH FOOD-- -- FINISH ALL MEDICINE -- 12/17 completed Not Available Not Available Not Available alendrona te 70 mg tablet Take 1 tablet every week by oral route for 30 days. 09/02 completed Not Available Not Available Not Available meclizine 12.5 mg tablet Take 1 tablet twice a day by oral route for 3 days. 09/02 completed Not Available Not Available Not Available levofloxa idalia 250 mg tablet TAKE ONE TABLET BY MOUTH ONCE DAILY FOR 5 DAYS -- FINISH ALL MEDICINE -- 11/25 completed Not Available Not Available Not Available allopurin ol 100 mg tablet Take 1 tablet every day by oral route. 2024 active Not Available Not Available Not Avai lable ciproflox acin 500 mg tablet TAKE ONE TABLET BY MOUTH EVERY TWELVE HOURS FOR 7 DAYS -- FINISH ALL MEDICINE -- 09/27 completed Not Available Not Available Not Available sulfameth oxazole 800 mg-trimet hoprim 160 mg tablet Take 1 tablet every 12 hours by oral route for 7 days. 04/25 completed Not Available Not Available Not Available omeprazol e 40 mg capsule,d elayed release Take 1 capsule every day by oral route. active Not Available Not Available No t Available tramadol 50 mg tablet TAKE ONE TABLET BY MOUTH EVERY 6 HOURS 08/22 completed Not Available Not Available Not Available ceftriaxo ne 1 gram solution for injection Take 1 g by injectio n route. 11/19 completed Not Available Not Available Not Available methenami ne hippurate 1 gram tablet Take 1 tablet twice a day by oral route for 30 days. 2024 active Not Available Not Available Not Avai lable benzonata te 100 mg capsule TAKE ONE CAPSULE BY MOUTH TWICE DAILY -SWALLOW WHOLE. DO NOT CRUSH OR CHEW- 10/08 completed Not Available Not Available Not Available cephalexi n 500 mg capsule TAKE ONE CAPSULE BY MOUTH TWICE DAILY FOR 7 DAYS -- FINISH ALL MEDICINE -- 11/11 completed Not Available Not Available Not Available cyanocoba dru (vit B-12) 1,000 mcg/mL injection solution Inject 1 mL every month by subcutan eous route. 01/13 completed Not Available Not Available Not Available levothyro xine 125 mcg tablet 1 tablet qd 12/17 completed Not Available Not Available Not Available aspirin 81 mg chewable tablet Chew 1 tablet every day by oral route. active Not Available Not Available No t Available bisacodyl 5 mg tablet,de layed release TAKE TWO TABLETS BY MOUTH TWICE DAILY 07/09 completed Not Available Not Available Not Available mupirocin 2 % topical ointment APPLY TOPICALL Y TO THE AFFECTED AREA(S) TWICE DAILY 12/17 completed Not Available Not Available Not Available Synthroid 112 mcg tablet TAKE 1 TABLET DAILY active Not Available Not Available No t Available ergocalci ferol (vitamin D2) 1,250 mcg (50,000 unit) capsule 12/17 completed Not Available Not Available Not Available dexametha sone sodium phosphate 4 mg/mL injection solution 4mg IM x 1 dose in office 07/01 completed Not Available Not Available Not Available insulin lispro (U-100) 100 unit/mL subcutane ous solution USE VIA OMNIPOD PER SLIDING SCALE WITH MAX OF 80 UNITS PER DAY active Not Available Not Available No t Available levofloxa idalia 500 mg tablet TAKE ONE TABLET BY MOUTH EVERY 24 HOURS -- FINISH ALL MEDICINE -- 06/05 completed Not Available Not Available Not Available estradiol 0.01% (0.1 mg/gram) vaginal cream Insert 1 g twice a week by vaginal route at bedtime for 90 days. 2024 active Not Available Not Available Not Avai lable levofloxa idalia 750 mg tablet TAKE ONE TABLET BY MOUTH EVERY DAY 11/26 completed Not Available Not Available Not Available ondansetr on 4 mg disintegr ating tablet Place 1 tablet twice a day by translin gual route as needed for 7 days. 10/19 completed Not Available Not Available Not Available cefdinir 300 mg capsule TAKE ONE CAPSULE BY MOUTH EVERY TWELVE HOURS FOR 7 DAYS -- FINISH ALL MEDICINE -- 02/04 completed Not Available Not Available Not Available doxycycli ne hyclate 100 mg tablet Take 1 tablet twice a day by oral route for 10 days. 2024 active Not Available Not Available Not Avai lable amoxicill in 875 mg-potass ium clavulana te 125 mg tablet TAKE ONE TABLET BY MOUTH EVERY TWELVE HOURS FOR 10 DAYS -- FINISH ALL MEDICINE -- 10/08 completed Not Available Not Available Not Available meclizine 25 mg chewable tablet TAKE (1/2) TABLET BY MOUTH TWICE DAILY FOR 3 DAYS 09/02 completed Not Available Not Available Not Available Paradigm Hailey 3 mL 08/22 completed Not Available Not Available Not Available rosuvasta tin 40 mg tablet Take 1 tablet every day by oral route. active Not Available Not Available No t Available nitrofura ntoin monohydra te/macroc rystals 100 mg capsule TAKE ONE CAPSULE BY MOUTH EVERY TWELVE HOURS FOR 5 DAYS --TAKE WITH FOOD-- -- FINISH ALL MEDICINE -- 01/13 completed Not Available Not Available Not Available peg 3350-elec trolytes 236 gram-22.7 4 gram-6.74 gram-5.86 gram solution 07/09 completed Not Available Not Available Not Available Myrbetriq 25 mg tablet,ex tended release Take 1 tablet every day by oral route for 90 days. 02/03 completed Not Available Not Available Not Available icosapent ethyl 1 gram capsule TAKE 2 CAPSULES TWICE A DAY active Not Available Not Available No t Available Jardiance 10 mg tablet 12/17 completed Not Available Not Available Not Available Trulicity 0.75 mg/0.5 mL subcutane ous pen injector 1 injectio n per week 08/22 completed Not Available Not Available Not Available BD Veo Insulin Syringe Ultra-Fin e (half unit) 0.3 mL 31 gauge x 15/64 active Not Available Not Available Not Available BD Veo Insulin Syringe Ultra-Fin e 0.3 mL 31 gauge x 15/64 active Not Available Not Available Not Available Omnipod Dash Pods (Gen 4) subcutane ous cartridge USE DIRECTED (CHANGE omnipod every 72 hours) active Not Available Not Available No t Available Gvoke HypoPen 2-Pack 1 mg/0.2 mL subcutane ous auto-inje ctor 11/19 completed Not Available Not Available Not Available Voltaren Arthritis Pain 1 % topical gel APPLY thin layer to rt hip area at bedtime 08/22 completed Not Available Not Available Not Available Gemtesa 75 mg tablet one daily 09/27 completed pt states caused swelling in feet and stopped taking Not Available Not Available Not Available d-mannose 500 mg capsule Take 2 capsules twice a day by oral route. 07/09 completed Not Available Not Available Not Available Women's Probiotic 25 billion cell-25 billion cell-50 mg capsule Take 1 capsule every day by oral route for 90 days. 11/19 completed Not Available Not Available Not Available Vitals Date Recorded Body height Body mass index (BMI) Body weight Respiratory rate Oxygen saturation Oxygen saturation in Arterial blood by Pulse oximetry Heart rate Systolic blood pressure Diastolic blood pressure Provider Name and Address Organization Details Last Updated DateTime 5 151.13 cm 28.4 kg/m2 67546.7 1 g 18 /min 92 % 92 % 90 /min 126 mm[Hg] 78 mm[Hg] Dia Youssef [place] - [facility] 5 11:44:21 Social History Question Answer Notes LastModified by [employer] ion Details LastModified Time Tobacco Smoking Status Never Smoker Dia Youssef null, [place] - [facility] 12/17/2021 09:30:03 Do You Have An Advance Directive? No Information n ot available 12/17/2021 Are You Blind Or Do You Have Difficulty Seeing? No Information n ot available 07/14/2023 Is Blood Transfusion Acceptable In An Emergency? Yes Information not available 12/20/2021 What Is Your Level Of Caffeine Consumption? Occasional Information not available 12/20/2021 How Much Tobacco Do You Chew? None Information not available 12/20/2021 In The 14 Days Before Symptom Onset, Have You Had Close Contact With A Laboratory-confirm ed COVID-19 While That Case Was Ill? No Information n ot available 07/14/2023 In The 14 Days Before Symptom Onset, Have You Had Close Contact With A Person Who Is Under Investigation For COVID-19 While That Person Was Ill? No Information not available 07/14/2023 Have You Been To An Area Known To Be High Risk For COVID-19? No Information not available 07/14/2023 Are You Deaf Or Do You Have Serious Difficulty Hearing? No Information not available 12/17/2021 What Type Of Diet Are You Following? DIABETIC Information n ot available 12/20/2021 Have You Processed Blood Or Body Fluids From An Ebola Virus Disease Patient Without Appropriate PPE? No Information not available 07/14/2023 Do You Reside In Or Have You Traveled To An Area Where Ebola Virus Transmission Is Active? No Information not available 07/14/2023 What Is The Highest Grade Or Level Of School You Have Completed Or The Highest Degree You Have Received? [id number] Information not available 12/17/2021 Have There Been Any Changes To Your Family Or Social Situation? No Information no t available 07/14/2023 What Is The Fluoride Status Of Your Home? Unknown Information not available 07/14/2023 Have You Recently Or Are You Planning To Travel To An Area With Zika Virus? No Information not available 07/14/2023 Do You Have A Medical Power Of Delivery Assistant? No Information not available 07/14/2023 What Was The Date Of Your Most Recent Tobacco Screening? 07/19/2024 [email or web address] Information not available 07/19/2024 How Many Children Do You Have? 1 Information not available 12/17/2021 Do You Use Protection During Sex? No Information not available 07/14/2023 Do You Use Protection Against STDs? No Information not available 12/20/2021 What Is Your Relationship Status? Information not available 12/17/2021 Do You Use Your Seat Belt Or Car Seat Routinely? Yes Information not available 12/20/2021 Are You Sexually Active? Yes Information not available 12/20/2021 Do You Have Smoke And Carbon Monoxide Detectors In Your Home? Yes Information not available 12/17/2021 Are You Passively Exposed To Smoke? No Information no t available 12/17/2021 Do You Use Sunscreen Routinely? No Information not available 12/20/2021 Has Tobacco Cessation Counseling Been Provided? No Information not available 07/14/2023 Do You Have Difficulty Walking Or Climbing Stairs? No Information not available 07/14/2023 Sex: Female Functional Status Question Answer Note LastModified by Organizat ion Details LastModified Time Do you use any illicit or recreational drugs? No Information not available 12/20/2021 Do you or have you ever used any other forms of tobacco or nicotine? No Information not available 07/14/2023 What is your level of alcohol consumption? None Information not available 12/17/2021 Do you or have you ever used smokeless tobacco? Never used smokeless tobacco Information not available 12/20/2021 Are you currently employed? No Information not available 12/17/2021 Do you have transportation difficulties? No Information not available 07/14/2023 Are you able to walk? YESWOREST Information not available 07/14/2023 Do you have difficulty doing errands alone? No Information not available 07/14/2023 Are you able to care for yourself? Yes Information n ot available 12/17/2021 Do you have difficulty dressing or bathing? No Information not available 07/14/2023 Do you or have you ever used e-cigarettes or vape? Never used electronic cigarettes Information not available 12/20/2021 What is your exercise level? None Information not available 12/20/2021 Mental Status Question Answer Note LastModified by Organizat ion Details LastModified Time Do you feel stressed (tense, restless, nervous, or anxious, or unable to sleep at night)? [id number] Information not available 12/20/2021 Do you have difficulty concentrating, remembering or making decisions? No Information no t available 07/14/2023 Family History Relationship Description Onset Age of this Age Resolved Age Notes LastModified by Organization Details LastModified Time Mother Malignant tumor of breast [email or web address] Not available 2021 09:28:40 Mother Heart disease 82 85 [email or web address] Not available 2023 10:40:01 Brother Type 2 diabetes mellitus [email or web address] Not available 2024 10:13:20 Sister Heart disease 50 50 [email or web address] Not available 2023 10:40:01 Sister Myocardial infarction [email or web address] Not available 11/19 10:13:20 Medical History Condition Response Diabetes Y Muscle, Joint, or Bone Problems Y Hypercholesterolemia Y Acid Reflux (GERD) Y Heart Disease Y Neuropathy Y Stroke Y Thyroid Problems Y Hypertension Y Kidney or Bladder Problems Y Gynecological History Statement/Question Response Abnormal Pap N Date of Last Mammogram 10/15/2022 Flow Light Date of LMP 06/09/1999 Post Menopausal Bleeding N STIs/STDs N HPV Vaccine N Duration of Flow (days) 0 Most Recent Mammogram 10/15/2022 Current Control Method None Age at Menarche 12 Age at First Child 19 If Post Menopausal, Age at Menopause 60 Date of Last Colonoscopy 12/10/2023 Frequency of Cycle (Q days) 0 Most Recent Bone Density 06/09/2021 Sexually Active? Y Menses Monthly N Date of Last Pap Smear 03/09/2021 Sexual Problems? N LMP Unknown Hormone Replacement Therapy N Obstetrics History GPAL:G 1 P 1 0 0 1 Type Value Multiple Births 0 Full Term 1 Induced 0 Spontaneous 0 Premature 0 Living 1 Ectopics 0 Total 1 Immunizations Vaccine Type Date Status Note Provider Nam e and Address Organization Details Recorded Time Influenza, high-dose, quadrivalent, PF 02/21/2022 completed Dylan King, [employer] [address], [place], [address], [place] [facility] 03/26/2022 17:30:58 Influenza, high-dose, quadrivalent, PF 04/25/2023 completed Fina Vasquez null, [place] - [facility] 04/25/2023 13:24:26 Influenza, high-dose, trivalent, PF 02/24/2024 completed Fina [place], [place] [facility] 03/11/2024 17:52:11 COVID-19, mRNA, LNP-S, PF, 100 mcg/0.5mL dose or 50 mcg/0.25mL dose 08/02/2020 completed Fina Vasquez null, [place] - [facility] 08/22/2022 14:19:25 COVID-19, mRNA, LNP-S, PF, 100 mcg/0.5mL dose or 50 mcg/0.25mL dose 08/31/2020 completed Fina Vasquez null, [place] - [facility] 08/22/2022 14:19:25 COVID-19, mRNA, LNP-S, PF, 100 mcg/0.5mL dose or 50 mcg/0.25mL dose 04/11/2021 completed Fina Vasquez null, [place] - [facility] 08/22/2022 14:19:25 Tdap 04/20/2013 completed Fina Vasquez null, [facility] - [facility] 08/22/2022 14:19:25 zoster live 04/20/2013 completed Fina Pedro null, [facility] - [facility] 08/22/2022 14:19:25 Influenza, high-dose, trivalent, PF 05/16/2021 completed Fina Pedro null, [facility] - [facility] 08/22/2022 14:19:25 Past Encounters Encounter ID Performer Location Encounter Start Date Encounter Closed Date Diagnosis/Indication Diagnosis SNOMED-CT Code Diagnosis ICD10 Code Diagnosis Note [id number] Dylan King [address] [address] 09/02/2024 13:48:04 09/02/2024 15:32:54 Neuropathy 955682974 G62.9 Pt compliant with plan of careKasper reviewed and appropriat emedicatio n compliance discussedC ontrol substance agreement on fileuds: Long-term drug therapy 754022777 Z79.899 Acute maxi llary sinusitis 05228097 J01.00 on cipro Cough 27189035 R05.9 meds [id number] Dylan King [address] [address] 09/27/2024 11:37:40 09/27/2024 12:12:41 Candidiasis of vagina 84490809 B37.31 take diflucan tab- only took one tabwait for cx results on urine and vaginal- before starting antibiotic s Health Concerns Section Related Observation LastModified by Organization Detai ls LastModified Time None Recorded Concern Status LastModified by Organization Details LastModified Time None Recorded Payers Encounter Date Sequence Insurance Name Policy Number Policy Elena Covered Member ID Elena Member ID Guarantor Name 09/27/2024 2 FOR LIFE ( - MEDICARE SUPPLEMENT) [id number] Mariano Robert [id number] Jillian Robert 09/27/2024 1 [place] Jillian Robert [id number] Jillian Robert Notes Date Note Type Note Provider Name and Address Organization Details Recorded Time 09/27/2024 text/html 74 year old nanette dennis who presents to the office today with concerns ofyeast infection- she was prescribed fluconazole on 09-21-24 one tab, also used monistat 3 tubesstopped taking Gemtesa, she thought it might have caused yeast infection, states vaginal burning and itching, burning with urination Dylan King, [employer] [address], [place], [address], [place] - [facility] 09/27/2024 14:06:54 OBGyn Episode No OBEpisode recorded.
--- OUTSIDE RECORDS SUMMARY | 2024-11-19 13:49 | XMS_ITS | Data Portability ---
Author Organization [facility] Address [address] [place] [address] Assessment Encounter Date Assessment Date Assessment LastModified by Organization Details LastModified Time 03/09/2018 03/09/2018 Mrs. 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 I'm recommending a 3 level posterior lumbar interbody fusion. I described the procedure in detail. We discussed the risks and benefits of the operation in detail. Specifically warned about the risk of infection, as she has diabetes and this would be a fairly extensive decompression with placement of hardware. She will speak with Sada, our surgery coordinator and find a date for surgery. She will [facility] prior to undergoing the operation. She understands that she will likely spend a few days in the hospital, and may need inpatient rehabilitation. Addendum: Ordering an L0650 back brace with anterior, lateral, and posterior support to reduce pain by restricting mobility of the trunk. [email or web address] Not available 04/06/2018 17:11:24 04/20/2018 04/20/2018 Routine staple removal s/p L2-5 PLIF 04/08/18. Her incision healed nicely, went ahead w/ the removal. She handled the procedure well. Mrs. Robert is experiencing nausea, and was admitted the ER over the weekend. She was given Reglan & Scopolamine, we [facility] those [facility]. She knows to call us if there is any issues. [email or web address] Not available 04/20/2018 15:04:02 05/11/2018 05/11/2018 Mrs. Robert is a 67-year-old female status post L2-L5 fusion. Her x-rays performed today look fine. I'm sorry to hear of her GI issues. I feel that they will resolve with time. I'm hopeful that the new medication prescribed by Dr. Bella will help. I will see her back in 2 months with repeat x-rays of the lumbar spine. [email or web address] Not available 05/11/2018 17:16:50 Plan of Treatment Reminders Order Date Submit Date Provider Last Modified By Organization Details Last Modified Time Details Appointments None recorded. Lab None recorded. Referral None recorded. Procedures None recorded. Surgeries None recorded. Imaging None recorded. Medication Orders Reglan 5 mg tablet 2017 018 [facility], [address] [place] [address] [address] [place], [id number], 8 15:03:03 scopolamin e 1 mg over 3 days transderma l patch 2017 018 [facility], [address] [place] [address] [address], [place], [id number], 2 10:19:31 Patient TargetsNo targets recorded. Patient InstructionsNo instructions recorded. Reason for Referral None Reported. Results Created Date Observation Date Name Description Value Unit Range Abnormal Flag Note LastModifiedBy Organization Detail LastModifiedTime 05/11/20 18 05/11/2018 XR, lumbo sacra l spine , 2 or [address] [place] [address] Chloezenaida balderrama Name: JILLIAN balderrama : [address] Pat[address] balderrama Orderi ng Provid er: DECLAN DEMPSEY EXAM DATE: 2017 EXAM: XR LUMBAR AP/LAT CLINIC AL INFORM ATION: Postop erativ e. IMAGES PROVID ED: AP, latera l, and coned- down views of the lumbar spine. COMPAR CARLINE: None. FINDIN GS AND IMPRES RADAMES: Spinal fusion is noted at L2-L5 level with pedicu lar screws and connec ting rods. Surgic al hardwa re is satisf actori ly placed . No eviden ce of loosen ing or infect ion is seen. Degene rative change s are seen at other levels . Interp reted By: Coni Barker MD Electr onical ly Signed By: Coni Barker MD on 018 3:[email or web address] [facility] [address] [place], [address], 05/11/2018 17:22:37 Result Notes None recorded. Procedures Surgical History Date Name Laterality Status Provider Name and Address Organization Details Recorded Time 04/08/20 18 POSTERIOR LUMBAR INTERBODY FUSION, SINGLE INTERSPACE (SURG) completed Katt Elma [facility] 04/13/2018 09:04:24 tonsillectomy completed [facility] 03/09/2018 14:07:34 Appendectomy completed [facility] 03/09/2018 14:07:44 section completed [facility] 03/09/2018 14:08:11 Cholecystectomy w/cholang completed [facility] 03/09/2018 14:08:34 complete repair of rotator cuff completed [facility] 03/09/2018 14:08:48 hysterectomy completed [facility] 03/09/2018 14:08:59 Neck Surgery completed [facility] 03/09/2018 14:09:09 coronary artery bypass graft completed [facility] 03/09/2018 14:09:28 Imaging Results None recorded. Procedure Notes None recorded. Medical Equipment None Reported. Allergies Allergen ID Allergen Name Allergen Category Reaction Reaction Severity Criticality Documentation Date Start Date Code Code System Note Provider Name and Address Organization Details Recorded Time 766243 codeine medicatio n Not available Not available Not available 05/03/20162012 2670 RxNorm Comme nt: Creat ed By: Herlinda glynn Date: 2012 3:01: 29 PM; Not Available [facility] 6 09:24:07 359172 acetamino phen / oxycodone medicatio n Not available Not available Not available 03/09/2018 06260 3 RxNorm Angi Evans [facility] 8 14:10:48 678388 lisinopri l medicatio n rash Not available Not available 07/24/2023 62808 RxNorm Nikki Marcano [facility] 4 11:37:15 299991 cephalexi n medicatio n eye swelling Not available Not available 07/24/2023 2231 RxNorm Nikki Marcano [facility] 4 11:37:15 926887 Oxycontin medicatio n hallucina tions moderate Not available 07/24/2023 35458 6 RxNorm Nikki Marcano [facility] 4 11:37:15 539454 Macrobid medicatio n diarrhea moderate Not available 07/24/2023 54255 1 RxNorm Nikki Marcano [facility] 4 11:37:15 Medications Name Sig Start Date Stop Date Status Note LastModified by Organization Details LastModified Time losartan 50 mg tablet active Not Available Not Available Not Available cyclobenza sadaf 10 mg tablet active Not Available Not Available No t Available carvedilol 25 mg tablet active Not Available Not Available Not Available clonidine HCl 0.1 mg tablet active Not Available Not Available Not Available carvedilol 12.5 mg tablet active Not Available Not Available Not Available Effexor XR 75 mg capsule,ex tended release Daily active Duration: 30 days;Freq uency: daily;Med ication Descripti on: venlafaxi ne; Dosage:1; Route:ora l; refills:1 2; Quantity: 30 capsule, extended release Not Available Not Available Not Available trazodone 50 mg tablet active Not Available Not Available Not Available tizanidine 4 mg tablet Take 1 tablet every 6 hours by oral route as needed. active Not Available Not Available No t Available hydrocodon e 5 mg-acetami nophen 325 mg tablet active Not Available Not Available No t Available diltiazem CD 240 mg capsule,ex tended release 24 hr active Not Available Not Available Not Available meloxicam 15 mg tablet active Not Available Not Available Not Available phenazopyr idine 200 mg tablet active Not Available Not Available No t Available ondansetro n HCl 4 mg tablet active Not Available Not Available Not Available isosorbide mononitrat e ER 30 mg tablet,ext ended release 24 hr active Not Available Not Available Not Available valsartan 80 mg tablet active Not Available Not Available Not Available Neurontin 600 mg tablet Bedtime active Instructi ons: 1 hs for nerve pain. May ^ q 7d if needed to 2 hs; 1 am, 2 hs; 2 am, 2 hs ;Frequenc y: hs;Medica tion Descripti on: gabapenti n; Dosage:1; Route:ora l; refills:5 ; Quantity: 30 tablet Not Available Not Available Not Available clopidogre l 75 mg tablet active Not Available Not Available Not Available allopurino l 100 mg tablet active Not Available Not Available Not Available ciprofloxa idalia 500 mg tablet active Not Available Not Available Not Available sulfametho xazole 800 mg-trimeth oprim 160 mg tablet active Not Available Not Available No t Available omeprazole 40 mg capsule,de layed release Daily active Not Available Not Available Not Available tramadol 50 mg tablet active Medicatio n Descripti on: tramadol; Dosage:1; Route:ora l; refills:0 Not Available Not Available Not Available simvastati n 40 mg tablet active Not Available Not Available Not Available fenofibrat e micronized 134 mg capsule active Not Available Not Available Not Available erythromyc in 250 mg tablet active Not Available Not Available Not Available Zocor 80 mg tablet Daily active Duration: 30 days;Freq uency: daily;Med ication Descripti on: simvastat in; Dosage:1; Route:ora l; refills:5 ; Quantity: 30 tablet Not Available Not Available Not Available Humalog U-100 Insulin 100 unit/mL subcutaneo us solution active Not Available Not Available Not Available pantoprazo le 40 mg tablet,del ayed release active Not Available Not Available Not Available levothyrox ine 125 mcg tablet active Not Available Not Available N ot Available lidocaine 5 % topical patch active Not Available Not Available Not Available promethazi ne 25 mg tablet active Not Available Not Available Not Available Rhea-Tab 250 mg tablet,del ayed release active Not Available Not Available Not Available hydrochlor othiazide 25 mg tablet active Duration: 10 days;Medi cation Descripti on: hydrochlo rothiazid e; Route:ora l; refills:0 ; Quantity: 30 tablet Not Available Not Available Not Available Levoxyl 112 mcg tablet Daily active Duration: 30 days;Freq uency: daily;Med ication Descripti on: levothyro xine; Dosage:1; Route:ora l; refills:0 ; Quantity: 30 tablet Not Available Not Available Not Available Aylett 7.5 mg-325 mg tablet Take 1 tablet every 6 hours by oral route as needed. 2017 active Not Available Not Available Not Avai lable scopolamin e 1 mg over 3 days transderma l patch Apply 1 patch by transderm al route. 2017 active Not Available Not Available Not Avai lable ondansetro n 4 mg disintegra ting tablet active Not Available Not Available Not Available Diovan 160 mg tablet Daily active Frequency : daily;Med ication Descripti on: valsartan ; Dosage:1; Route:ora l; refills:0 ; Quantity: 30 tablet Not Available Not Available Not Available metoclopra mide 10 mg tablet active Not Available Not Available Not Available Reglan 5 mg tablet Take 1 tablet 4 times a day by oral route. 2017 active Not Available Not Available Not Avai lable Paradigm Parkside 3 mL active Not Available Not Available Not Available Minimed Infusion Set active Not Available Not Available Not Available Synthroid 137 mcg tablet active Not Available Not Available Not Available rosuvastat in 10 mg tablet active Not Available Not Available Not Available metoprolol tartrate Daily active Frequency : daily;Med ication Descripti on: metoprolo l; Dosage:1; Route:ora l; refills:0 Not Available Not Available Not Available Humalog Mix 50-50 (U-100) Insulin 100 unit/mL subcutaneo us suspension Two times a day active Frequency : bid;Medic ation Descripti on: insulin lispro-in sulin lispro protamine ; Route:sub cutaneous ; refills:0 ; Quantity: 2 suspensio n Not Available Not Available Not Available Janumet 50 mg-1,000 mg tablet active Not Available Not Available No t Available Lovaza 1 gram capsule Daily active Frequency : daily;Med ication Descripti on: omega-3 polyunsat urated fatty acids; Dosage:2; Route:ora l; refills:0 Not Available Not Available Not Available diclofenac 1 % topical gel active Not Available Not Available Not Available Trilipix 135 mg capsule,de layed release Daily active Frequency : daily;Med ication Descripti on: fenofibri c acid; Dosage:1; Route:ora l; refills:0 Not Available Not Available Not Available Contour Next Test Strips active Not Available Not Available Not Available Vascepa 1 gram capsule active Not Available Not Available Not Available Sure Comfort Pen Needle 32 gauge x 5/32 active Not Available Not Available Not Available Creon 36,000 unit-114,0 00 unit-180,0 00 unit capsule,de layed release active Not Available Not Available Not Available Jardiance 25 mg tablet active Not Available Not Available Not Available Bydureon BCise 2 mg/0.85 mL subcutaneo us auto-injec tor active Not Available Not Available Not Available Vitals Date Recorded Body height Body mass index (BMI) Body weight Systolic blood pressure Diastolic blood pressure Provider Name and Address Organization Details Last Updated DateTime 03/09/2018 149.86 cm 29.1 kg/m2 08245.3 g 130 mm[Hg] 80 mm[Hg] [facility] 8 14:10:30 Date Recorded Body height Body mass index (BMI) Body weight Systolic blood pressure Diastolic blood pressure Provider Name and Address Organization Details Last Updated DateTime 05/11/2018 149.86 cm 29.1 kg/m2 52831.3 g 130 mm[Hg] 82 mm[Hg] [facility] 8 16:06:10 Social History Question Answer Notes LastModified by Organizat ion Details LastModified Time Tobacco Smoking Status Never Smoker [facility] 03/09/2018 14:07:26 What Was The Date Of Your Most Recent Tobacco Screening? 05/11/2018 Information n ot available 07/27/2019 Sex: Unknown Functional Status None recorded. Mental Status None recorded. Family History Nothing Reported. Medical History Condition Response Diabetes Y Arthritis Y High Cholesterol Y Thyroid Disorder Y Hypertension Y Kidney Disease Y Gynecological HistoryNo gynecological history recorded. Obstetrics History GPAL:G 0 P 0 0 0 0 Immunizations Vaccine Type Date Status Note Provider Nam e and Address Organization Details Recorded Time Influenza, high-dose, quadrivalent, PF 02/21/2022 completed Nikki Marcano [facility] 07/24/2023 11:37:18 Influenza, high-dose, quadrivalent, PF 04/25/2023 completed Nikki Jeet [facility] 07/24/2023 11:37:18 COVID-19, mRNA, LNP-S, PF, 100 mcg/0.5mL dose or 50 mcg/0.25mL dose 08/02/2020 completed Nikkianuradha Marcano [facility] 07/24/2023 11:37:18 COVID-19, mRNA, LNP-S, PF, 100 mcg/0.5mL dose or 50 mcg/0.25mL dose 08/31/2020 completed Inkkianuradha Marcano [facility] 07/24/2023 11:37:18 COVID-19, mRNA, LNP-S, PF, 100 mcg/0.5mL dose or 50 mcg/0.25mL dose 04[facility]11[facility]20[facility] 11:37:18 Tdap 04/20/2013 completed Nikki Marcano [facility] 07/24/2023 11:37:18 zoster live 04/20/2013 [facility] 11:37:18 Influenza, high-dose, trivalent, PF 05/16/2021 completed Nikki Jeet [facility] 07/24/2023 11:37:18 Past Encounters Encounter ID Performer Location Encounter Start Date Encounter Closed Date Diagnosis/Indication Diagnosis SNOMED-CT Code Diagnosis ICD10 Code Diagnosis Note [id number] THOMPSON DEMPSEY MD [facility] [address] [place] [address] 03/09/2018 13:17:46 03/09/2018 14:49:59 Lumbar spondylolisthesis 0080007801 69143 M43.16 [id number] ELVER FAIRCHILD PA-C [facility] [address] [place] [address] 04/20/2018 14:08:30 04/20/2018 15:04:27 Nausea 857780402 R11.0 [id number] THOMPSON DEMPSEY MD [facility] [address] [place] [address] 05/11/2018 15:08:15 05/12/2018 10:01:34 Postoperative care 980037975 Z48.89 Health Concerns Section Related Observation LastModified by Organization Detai ls LastModified Time None Recorded Concern Status LastModified by Organization Details LastModified Time None Recorded Advance Directives Directive None Recorded Payers Insurance Date Sequence Insurance Name Policy Number Policy Elena Covered Member ID Elena Member ID Guarantor Name 05/03/2020 2 FOR LIFE ( - MEDICARE SUPPLEMENT) Jillian Robert [id number] Jillian Robert 05/03/2020 1 [place] Jillian Robert [id number] Jillian Robert 06/19/2018 2 FOR LIFE ( - MEDICARE SUPPLEMENT) Jillian Robert [id number] Jillian Robert Notes Date Note Type Note Provider Name and Address Organization Details Recorded Time 03/09/2018 text/html Mrs. Jillian oneill is a 67 year old retiree with a history of a cervical fusion by myself. She presents with severe back and increasing bilateral leg pain, worse on the right. This is been progressively worse over the past 8 months. She describes 8 out of 10 pain which is sharp and aching. The pain is constant with no alleviating factors. The pain is made worse with any activity, especially bending, standing and sitting. She describes numbness down the back of her right leg. She underwent physical therapy at [facility]. She is unable take anti-inflammatorie s due to renal issues. She has trialed steroid shots as well as a TENS unit. She is not currently on any narcotic pain medication. She takes Neurontin for diabetic pain [facility] 04/06/2018 17:11:28 05/11/2018 text/html Mrs. Jillian oneill is a 67-year-old female status post L2-L5 fusion performed on April 08, 2018. She is doing well from her back standpoint, but has dealt with significant nausea since surgery. She has been seen at an outside hospital multiple times for dehydration. She was seen by Dr. Arsh Bella today prescribed some medications. She denies any significant pain related to her surgery and has gotten off the narcotic pain medications at this time. When x-rays prior to today's follow-up. THOMPSON DEMPSEY MD [address] [place], [address], [facility] 05/11/2018 17:17:16 OBGyn Episode No OBEpisode recorded.
--- OUTSIDE RECORDS SUMMARY | 2024-11-19 13:49 | XMS_ITS | Continuity of Care Document ---
Author Organization [facility] Address [address] [place] [address] Care Team Providers Care Acid Purifier Name Role Phone DYLAN LEBRON Primary Care Provider MAKENZIE Dahl Route Manager STEPH BLAS Make Ready Worker DENIS RAMIREZ R D Manager Assessment Encounter Date Assessment Date Assessment LastModified by Organization Details LastModified Time 10/08/2024 10/08/2024 -discussed application of estradiol vaginal cream with applicator and also applying pea size amt to urethral meatus. continue vit C (cant do more d/t dexcom) and also probiotic. cont methenamine --- would have to monitor CKD closely.... also alternative is trimethoprim or fosfomycin weekly if a change is needed in future with preventative. PCR pending, followup 4months [facility]3 Not available 10/08/2024 14:11:17 Plan of Treatment Reminders Order Date Submit Date Provider Last Modified By Organization Details Last Modified Time Details Appointments Medicare AWE 40mins 2024 11:00A M Dylan Lebron APRN Not available Not available Not available Follow Up 20 2024 01:00P M Margarita Banks APRN Not available Not available Not available Lab urinalysi s, dipstick 2024 025 [facility], [address] [place], [address], 10/08/2024 14:10:34 infectiou s disease panel 2024 025 [facility], [address], [place], [address], 10/11/2024 07:49:41 Referral None recorded. Procedures None recorded. Surgeries None recorded. Imaging None recorded. Medication Orders estradiol 0.01% (0.1 mg/gram) vaginal cream 2024 025 [facility], [address] [place] [address], [id number], 10/08/2024 14:10:36 methenami ne hippurate 1 gram tablet 2024 025 [facility], [address] [place] [address], [id number], 10/08/2024 14:11:40 Patient TargetsNo targets recorded. Patient Instructions Encounter Date Encounter Id Patient Instructions Last Modified By Organization Details Last Modified Time 10/08/2024 [id number] high blood pressure: care instructions Not available 10/08/2024 14:10:34 body mass index: care instructions Not available 10/08/2024 14:10:34 learning about healthy weight Not available 10/08/2024 14:10:34 type 2 diabetes: care instructions Not available 10/08/2024 14:10:34 Urge Incontinence: Care Instructions Not available 10/08/2024 14:10:34 Stress Incontinence: Care Instructions Not available 10/08/2024 14:10:34 chronic kidney disease: care instructions Not available 10/08/2024 14:10:34 medicines to avoid with kidney disease: care instructions Not available 10/08/2024 14:10:34 coronary artery disease: care instructions Not available 10/08/2024 14:10:34 Reason for Referral None Reported. Results Created Date Observation Date Name Description Value Unit Range Abnormal Flag Note LastModifiedBy Organization Detail LastModifiedTime 10/09/1910/08/2024 urina lysis , dipst ick Leukocytes Trace Not Available [facility] [address] [place], [address], 10/04/2024 09:39:08 10/09/19 25 10/08/2024 urina lysis , dipst ick Nitrite negati ve Not Available [facility] [address] [place], [address], 10/04/2024 09:39:08 10/09/19 25 10/08/2024 urina lysis , dipst ick Urobilinogen .2 Not Available [facility] [address] [place], [address], 10/04/2024 09:39:08 10/09/19 25 10/08/2024 urina lysis , dipst ick Protein 100 Not Available [facility] [address] [place], [address], 10/04/2024 09:39:08 10/09/19 25 10/08/2024 urina lysis , dipst ick pH 5.5 Not Available [facility] [address] [place], [address], 10/04/2024 09:39:08 10/09/19 25 10/08/2024 urina lysis , dipst ick Blood Negati ve Not Available [facility] [address] [place], [address], 10/04/2024 09:39:08 10/09/19 25 10/08/2024 urina lysis , dipst ick Specific [place] 1.030 Not Available [facility] [address] [place], [address], 10/04/2024 09:39:08 10/09/19 25 10/08/2024 urina lysis , dipst ick Ketone Negati ve Not Available [facility] [address] [place], [address], 10/04/2024 09:39:08 10/09/19 25 10/08/2024 urina lysis , dipst ick Bilirubin Negati ve Not Available [facility] [address] [place], [address], 10/04/2024 09:39:08 10/09/19 25 10/08/2024 urina lysis , dipst ick Glucose Negati ve Not Available [facility] [address] [place], [address], 10/04/2024 09:39:08 10/09/19 25 10/08/2024 urina lysis , dipst ick Appearance Clear Not Available [facility] [address] [place], [address], 10/04/2024 09:39:08 10/09/19 25 10/08/2024 urina lysis , dipst ick Color Yellow Not Available [facility] [address] [place], [address], 10/04/2024 09:39:08 Result Notes None recorded. Problems Name Problem SNOMED Code Status Onset Date Resolution Date Notes Provider Name and Address Organization Details Recorded Time Type 2 diabetes mellitus 89019993 Active 2021 Dylan Lebron, [employer] [address], [place], [address], [place] - [facility] 2 10:07:29 Hypertensive disorder 69115957 Active 2021 Dylan Lebron, [employer] [address], [place], [address], [place] - [facility] 2 10:07:09 Hypercholester olemia 48592588 Active 2021 Dylan Lebron, [employer] [address], [place], [address], [place] - [facility] 2 10:07:05 Gastroesophage al reflux disease 929268345 Active 2021 Dylan Lebron, [employer] [address], [place], [address], [place] [facility] 2 10:06:49 Hypothyroidism 49216549 Active 2021 Dylan Lebron, [employer] [address], [place], [address], [place] - [facility] 2 10:07:12 Neuropathy 794488262 Active 2021 Dylan Lebron, [employer] [address], [place], [address], [place] [facility] 2 10:07:19 Arthritis 1169896 Active 2021 Dylan Lebron, [employer] [address], [place], [address], [place] [facility] 2 10:06:47 Coronary arterioscleros is 18863730 Active 2021 Dylan Lebron, [employer] [address], [place], [address], [place] [facility] 2 10:18:21 Coronary artery bypass grafts x 3 Active 2021 Dylan Lebron APRN [address], [place], [address], [place] [facility] 2 10:18:34 Problem Notes None recorded. Procedures Surgical History Date Name Laterality Status Provider Name and Address Organization Details Recorded Time 025 Advance Care Planning active Fina Vasquez [place] - [facility] 11/19/2024 10:41:02 025 Functional Status Assessed active Fina Vasquez [place] - [facility] 11/19/2024 10:41:02 024 Date of Last Colonoscopy completed Dia Youssef [place] - [facility] 2024 13:27:50 024 Medication Reconcilliation completed Fina Vasquez [place] [facility] 12/02/2023 10:36:18 023 In and Out Catheterization completed Margarita Banks, [employer] [address], [place], [address] [place] - [facility] 02/13/2023 14:34:26 023 Medication Reconcilliation completed Fina Vasquez [place] [facility] 01/31/2023 10:55:15 023 Medication Reconcilliation completed Fina Vasquez [place] [facility] 01/06/2023 10:21:27 023 Medication Reconcilliation completed Fina Vasquez [place] [facility] 12/12/2022 10:55:58 023 Medication Reconcilliation completed Fina Vasquez [place] [facility] 11/25/2022 14:44:11 023 [...] [facility] 12/20/2021 15:34:17 002 Hysterectomy completed Fina Craneler [place] - [facility] 12/02/2023 10:40:15 970 Caesarean [...] Name and Address Organization Details Recorded Time 787831 lisinopri l medicatio n rash Not available high 12/17/2021 21845 RxNorm Fina Vasquez null, [place] - [facility] 10:17:08 312113 Oxycontin medicatio n hallucina tions moderate high 12/17/2021 10598 6 RxNorm Fina Vasquez [place] - [facility] 2 10:18:04 652433 codeine medicatio n rash moderate high 12/17/2021 2670 RxNorm Fina Vasquez [place], [place] - [facility] 2 10:16:43 007154 acetamino phen / oxycodone medicatio n hallucina tions severe high 12/17/2021 08898 3 RxNorm Fina Vasquez [place] - [facility] 2 10:17:43 215695 cephalexi n medicatio n eye swelling Not available low 11/11/2022 2231 RxNorm Fina Vasquez null, [place] - [facility] 3 12:54:33 905687 Macrobid medicatio n diarrhea moderate high 01/13/2023 47386 1 RxNorm vomit ing and diarr hea [...] Not Available Not Available Not Available [facility] [place] 3 mL 08/22 completed Not Available Not [...] height Body mass index (BMI) Body weight Heart rate Oxygen saturation Oxygen saturation in Arterial blood by Pulse oximetry Systolic blood pressure Diastolic blood pressure Provider Name and Address Organization Details Last Updated DateTime 5 151.13 cm 28.2 kg/m2 46534.1 2 g 86 /min 90 % 90 % 110 mm[Hg] 68 mm[Hg] Marlin Leon [place] - [facility] 5 13:33:59 Social History Question Answer Notes LastModified by Organizat ion Details LastModified Time Tobacco Smoking Status Never Smoker Dia [place], [place] - [facility] 12/17/2021 09:30:03 Do You [...] Or The Highest Degree You Have Received? [id number] Information not available 12/17/2021 Have There Been Any Changes To Your Family Or Social Situation? No Information no t available 07/14/2023 What Is The Fluoride Status Of Your Home? Unknown Information not available 07/14/2023 Have You Recently Or Are You Planning To Travel To An Area With Zika Virus? No Information not available 07/14/2023 Do You Have A Medical Power Of Rn Progressive Care Unit? No Information not available 07/14/2023 What Was [...] anxious, or unable to sleep at night)? [id number] Information not available 12/20/2021 Do you have [...] available 11/19 10:13:20 Medical History Condition Response Muscle, Joint, or Bone Problems Y Acid Reflux (GERD) Y Stroke Y Hypercholesterolemia Y Kidney or Bladder Problems Y Neuropathy Y Thyroid Problems Y Diabetes Y Heart Disease Y Hypertension Y Gynecological History Statement/Question Response Abnormal Pap [...] Influenza, high-dose, quadrivalent, PF 02/21/2022 completed Dylan Lebron, [employer] [address], [place], [address], [place] [facility] 03/26/2022 17:30:58 Influenza, high-dose, quadrivalent, PF 04/25/2023 completed Fina Vasquez null, [facility] 04/25/2023 13:24:26 Influenza, high-dose, trivalent, PF 02/24/2024 completed Fina Vasquez null, [facility] 03/11/2024 17:52:11 COVID-19, mRNA, LNP-S, PF, 100 mcg/0.5mL dose or 50 mcg/0.25mL dose 08/02/2020 completed Fina Vasquez null, [facility] 08/22/2022 14:19:25 COVID-19, mRNA, LNP-S, PF, 100 mcg/0.5mL dose or 50 mcg/0.25mL dose 08/31/2020 completed Fina Vasquez null, [facility] 08/22/2022 14:19:25 COVID-19, mRNA, LNP-S, PF, 100 mcg/0.5mL dose or 50 mcg/0.25mL dose 04/11/2021 completed Fina Vasquez null, [facility] 08/22/2022 14:19:25 Tdap 04/20/2013 completed Fina Vasquez null, [facility] 08/22/2022 14:19:25 zoster live 04/20/2013 completed Fina Vasquez null, [facility] 08/22/2022 14:19:25 Influenza, high-dose, trivalent, PF 05/16/2021 completed Fina Vasquez [place], [place] - [facility] 08/22/2022 14:19:25 Past Encounters Encounter ID Performer Location Encounter Start Date Encounter Closed Date Diagnosis/Indication Diagnosis SNOMED-CT Code Diagnosis ICD10 Code Diagnosis Note [id number] Margarita LiebermanGAMA stacy [facility] [address] [place] [address] 10/08/2024 13:08:12 10/08/2024 14:14:05 Recurrent urinary tract infection 198345163 N39.0 -continue estradiol VC. Overactive urinary bladder 026822715 N32.81 -avoid anticholin ergics in this patient d/t potential patient harm. anticholin ergics interact with currently rx medication s and combo may incr. risk of BI MANAGER depression , psychomoto r impairment . Also pt is 72 years old, and anticholin ergics should be avoided d/t BEERS criteria.B eta 3 agonists are the safest alternativ e for this patient. -PFPT- unable to travel. she does not have a PFPT provider within a [address] from her home.-fail ed bladder training. failed myrbetriq- caused swelling in legs.faile d gemtesa- caused swelling in legs. Hydronephrosis 44701295 N13.30 Chronic ki dney disease stage 4 081966676 N18.4 Hypertensive disorder 38 771690 I10 Type 2 lexx betes mellitus 72679711 E11.21 Coronary arteriosclerosis 98101529 I25.10 Mixed urin nasra incontinence 778322548 N39.46 Body mass index 25-29 - overweight 816020040 Z68.28 BMI 28.9 Overweight 092810380 E66 .3 [id number] Dylan Lebron APRN [facility] [address] [place] [address] 09/27/2024 11:37:40 09/27/2024 12:12:41 Candidiasis of vagina 81734736 B37.31 take diflucan tab- only took one tabwait for cx results on urine and vaginal- before starting antibiotic s Health Concerns Section Related Observation LastModified by Organization Detai ls LastModified Time None Recorded Concern Status LastModified by Organization Details LastModified Time None Recorded Payers Encounter Date Sequence Insurance Name Policy Number Policy Elena Covered Member ID Elena Member ID Guarantor Name 10/08/2024 2 [employer] LIFE ( - MEDICARE SUPPLEMENT) [id number] Mariano Robert [id number] Jillian Robert 10/08/2024 1 [place] Jillian Robert [id number] Jillian Robert Notes Date Note Type Note Provider Name and Address Organization Details Recorded Time 5 text/html Lower Urinary Tract Symptoms (LUTS)Reported bypatient.[facility] Quality:worsening Severity:bothersome Onset/Timing:> 1 year Duration:constant Context:has seen Urologist (dr mojica.); number of vaginal deliveries: (csection x 1 in 1969); previous hysterectomy (approx 2002, [facility]ERM[facility]N and BSO, bladder tack.) Associated Symptoms:no abdominal pain; no groin pain; no flank pain; no low back pain; no chills; no fever; no constipation; no diarrhea; no nausea; no vomiting; no temperaure; good force of stream; no straining; no post void dribbling; no hesitancy; empties well; no urgency; no dysuria; no urine odor; no gross hematuria;frequency(impr minnie with gemtesa. now only 3-4x);mixed incontinence(improved with gemtesa.);nocturia 1 times a nightNotes:-11/08/22- UCx- ecoli-12/27/22- Ucx- enterococcus faecalis -mid december 2022- d/c summary from [facility] reports admit for left pyelo UCX grew klebsiella pneumoniae. -01/13/23- UCx negative.-01/13/23- creat 2.2, gfr 27. -01/13/23- CT abd pel w/o- per report- moderate hydronephrosis and hydroureter on the left, stable. moderate thickening of the bladder, likely d/t under distension. -01/14/23- d/c summary from [facility]- reviewed. admitted 01/13/23 for uti. ucx >100k enterococcus faecalis. creat 1.9, gfr 26. -01/27/23- nephrology note- reviewed, states CKD st 4. -02/04/23- US retroperitoneum complete- bilat renal atrophy measuring 8cm. no hydronephrosis, mass, calcification. -02/04/23- PCR urine testing- ESBL klebsiella pneumoniae. (tx fosfomycin 3g one packet every other day x 3 packet) -02/13/23- PVR cath exam- 30ml. atrophic vaginitis. Cath negative. -03/06/23- UCX- citrobacter freundii (tx doxycycline 100mg) -04/25/23- UCX- ecoli (tx levaquin 500mg QD x 5days) -05/06/23- UCX negative. 05/08 started doxycycline hyclate 100 mg capsule 1 capsule every day for 90 days -05/23/23- UCX negative. -06/05/23- UCX negative. -09/05/23- PCR urine testing- enterococcus faecalis (tx bactrim, tried to switch to fosfomycin 3g one packet EOD x 3 packet but she never got it) 10/01/23- UCX - citrobacter BRAAKII (tx fosfomycin 3g one packet EOD x 3) 10/13/23- PCR urine testing- negative. 12/01/23- PCR urine testing- enterococcus 12/10/23- PCR urine testing- enterococcus (Tx fosfomycin 3g one packet EOD x 5 packets.) 12/31/23- PCR urine test- negative 03/24/24- PCR urine test - negative 04/02/24- UA rflx UCX neg. 06/08/24- UCX- ESBL Ecoli (tx fosfomycin 3g one packet EOD x 5 packets. ) 07/09/24- UCX- Enterobacter cloacae 07/09/24- CMP- creat 1.78, gfr 30 07/19/24- UCX- Enterobacter cloacae (tx cipro) 08/24/24- PCR urine testing- enterococcus and ecoli (tx cipro 500mg bid x 10 days. ) 09/27/24- UCX- enterococcus (tx agumentin 875mg bid x 10 day) patient referred by dylan lebron, for ilya - patient states she has had several uti's this year and has been hospitalized at least 3 - 4 times. reports shes been septic. has seen nephro at .reports she did see dr mojica and had her bladder checked out and it was emptying, this was in 2021 she thinks. sees nephrology at . seeing them q6mo. 10/08/24comes to followup on ilya and oab, ckd st 4, hydronephrosisusing premarin cream02/04/24 we started gemtesa. this has helped her OAB symptoms. she states she also stopped this because of swelling. she tried it twice. she is rx methenamine and vitaminC for ilya but hasnt been filled in a few months. she forgot to restart it again Margarita Banks, [employer] [address], [place], [address], [place] - [facility] 10/08/2024 14:12:25 OBGyn Episode No OBEpisode recorded.
--- OUTSIDE RECORDS SUMMARY | 2024-11-19 13:50 | XMS_ITS | Data Portability ---
Author Organization [facility] Address [address] [place] [address] Care Team Providers Care Orthotist Name Role Phone DYLAN LEBRON Primary Care Provider MAKENZIE Dahl Typing Bookkeeper STEPH BLAS Earring Maker DENIS RAMIREZ Tarring Machine Operator Assessment Encounter Date Assessment Date Assessment LastModified by Organization Details LastModified Time 08/24/2024 08/24/2024 -discussed application of estradiol vaginal cream with applicator and also applying pea size amt to urethral meatus. continue vit C (cant do more d/t dexcom) and also probiotic. cont gemtesa cont methenamine --- would have to monitor CKD closely.... also alternative is trimethoprim or fosfomycin weekly if a change is needed in future with preventative. PCR pending, followup 6wks Not available 08/24/2024 11:28:09 10/08/2024 10/08/2024 -discussed application of estradiol vaginal cream with applicator and also applying pea size amt to urethral meatus. continue vit C (cant do more d/t dexcom) and also probiotic. cont methenamine --- would have to monitor CKD closely.... also alternative is trimethoprim or fosfomycin weekly if a change is needed in future with preventative. PCR pending, followup 4months Not available 10/08/2024 14:11:17 Plan of Treatment Reminders Order Date Submit Date Provider Last Modified By Organization Details Last Modified Time Details Appointments Medicare AWE 40mins 2024 11:00A M Dylan Beartiffany, MOTION PICTURE PROJECTIONIST Not available Not available Not available Follow Up 20 2024 01:00P Rosales Banks, MOTION PICTURE PROJECTIONIST Not available Not available Not available Lab urinalysi s, dipstick [id number] [facility], [address] [place], [address], 10/08/2024 14:10:34 infectiou s disease panel 2024 025 RABIA [facility], [address], [place], [address], 10/11/2024 07:49:41 vaginal pathogens panel, ERNESTINA+probe , vaginal fluid 2024 025 RABIA [facility], [address], [address], [place], [address], 09/30/2024 01:06:56 urinalysi s, dipstick 2024 025 [facility], [address] [place] [address], [phone], 09/27/2024 14:06:26 culture, urine 2024 025 RABIA [facility], [address], [address], [place], [address], 09/30/2024 01:06:56 drug screen, urine 2024 025 [facility], [address] [place] [address], [phone], 09/02/2024 15:04:12 urinalysi s, dipstick [address] [facility], [address] [place], [address], 08/24/2024 11:24:26 infectiou s disease panel 2024 [facility], [address], [place], [address], 08/27/2024 11:27:26 Referral None recorded. Procedures None recorded. Surgeries None recorded. Imaging None recorded. Medication Orders estradiol 0.01% (0.1 mg/gram) vaginal cream 2024 [facility], [address] [place] [address], [id number], 10/08/2024 14:10:36 methenami ne hippurate 1 gram tablet 2024 [facility], [address] [place] [address], [id number], 10/08/2024 14:11:40 benzonata te 100 mg capsule 2024 025 [email or web address] [facility], [address] [place] [address], [id number], 10/08/2024 13:34:31 gabapenti n 600 mg tablet 2024 025 [facility], [address] [place] [address], [id number], 09/02/2024 14:37:07 Patient TargetsNo targets recorded. Patient Instructions Encounter Date Encounter Id Patient Instructions Last Modified By Organization Details Last Modified Time 08/24/2024 [id number] high blood pressure: care instructions Not available 08/24/2024 11:24:26 body mass index: care instructions Not available 08/24/2024 11:24:25 learning about healthy weight Not available 08/24/2024 11:24:26 type 2 diabetes: care instructions Not available 08/24/2024 11:24:25 Urge Incontinence: Care Instructions Not available 08/24/2024 11:24:25 Stress Incontinence: Care Instructions Not available 08/24/2024 11:24:25 chronic kidney disease: care instructions Not available 08/24/2024 11:24:25 medicines to avoid with kidney disease: care instructions Not available 08/24/2024 11:24:26 coronary artery disease: care instructions Not available 08/24/2024 11:24:26 10/08/2024 [id number] high blood pressure: care instructions Not available [...] Not available 10/08/2024 14:10:34 Reason for Referral Communications Field Technician Referral for Ulce r of toe due to type 2 diabetes mellitus Referring Physician: Dylan Lebron [facility], Encounter Date: 11/19/2024 Neurologist Referral for Imp aired cognition memory clinic Referring Physician: Dylan Lebron [facility], Encounter Date: 11/19/2024 Results Created Date Observation Date Name Description Value Unit Range Abnormal Flag Note LastModifiedBy Organization Detail LastModifiedTime 08/25/1908/24/2024 MICRO SENSI TIVIT Y abnormal status abnormal Not Available [facility] [address], [place], [address], 08/27/2024 11:27:28 08/25/19 25 08/24/2024 MICRO SENSI TIVIT Y abnormal status high Not Available [facility] [address], [place], [address], 08/27/2024 11:27:28 08/25/19 25 08/24/2024 MICRO SENSI TIVIT Y abnormal status susceptib le Not Available [facility] [address], [place], [address], 08/27/2024 11:27:28 08/25/19 25 08/24/2024 MICRO SENSI TIVIT Y ampicillin <=4 S susceptib le Not Available [facility] [address], [place], [address], 08/27/2024 11:27:28 08/25/19 25 08/24/2024 MICRO SENSI TIVIT Y amikacin <=8 S susceptib le Not Available [facility] [address], [place], [address], 08/27/2024 11:27:28 08/25/19 25 08/24/2024 MICRO SENSI TIVIT Y aztreonam <=2 S susceptib le Not Available [facility] [address], [place], [address], 08/27/2024 11:27:28 08/25/19 25 08/24/2024 MICRO SENSI TIVIT Y ceftazidime <=2 S susceptib le Not Available [facility] [address], [place], [address], 08/27/2024 11:27:28 08/25/19 25 08/24/2024 MICRO SENSI TIVIT Y ciprofloxaci n <=0.25 S susceptib le Not Available [facility] [address], [place], [address], 08/27/2024 11:27:28 08/25/19 25 08/24/2024 MICRO SENSI TIVIT Y ceftriaxone <=1 S susceptib le Not Available [facility] [address], [place], [address], 08/27/2024 11:27:28 08/25/19 25 08/24/2024 MICRO SENSI TIVIT Y cefepime <=1 S susceptib le Not Available [facility] [address], [place], [address], 08/27/2024 11:27:28 08/25/19 25 08/24/2024 MICRO SENSI TIVIT Y nitrofuranto in <=16 S susceptib le Not Available [facility] [address], [place], [address], 08/27/2024 11:27:28 08/25/19 25 08/24/2024 MICRO SENSI TIVIT Y gentamicin <=2 S susceptib le Not Available [facility] [address], [place], [address], 08/27/2024 11:27:28 08/25/19 25 08/24/2024 MICRO SENSI TIVIT Y levofloxacin <=0.5 S susceptib le Not Available [facility] [address], [place], [address], 08/27/2024 11:27:28 08/25/19 25 08/24/2024 MICRO SENSI TIVIT Y meropenem <=0.5 S susceptib le Not Available [facility] [address], [place], [address], 08/27/2024 11:27:28 08/25/19 25 08/24/2024 MICRO SENSI TIVIT Y tobramycin <=2 S susceptib le Not Available [facility] [address], [place], [address], 08/27/2024 11:27:28 08/25/19 25 08/24/2024 MICRO SENSI TIVIT Y ampicillin/s ulbactam 4/2 S susceptib le Not Available [facility] [address], [place], [address], 08/27/2024 11:27:28 08/25/19 25 08/24/2024 MICRO SENSI TIVIT Y trimethoprim /sulfamethox azole <=0.5/ 9.5 S susceptib le Not Available [facility] [address], [place], [address], 08/27/2024 11:27:28 08/25/19 25 08/24/2024 MICRO SENSI TIVIT Y tetracycline <=2 S susceptib le Not Available [facility] [address], [place], [address], 08/27/2024 11:27:28 08/25/19 25 08/24/2024 MICRO SENSI TIVIT Y piperacillin /tazobactam <=2/4 S susceptib le Not Available [facility] [address], [place], [address], 08/27/2024 11:27:28 08/25/19 25 08/24/2024 MICRO SENSI TIVIT Y ertapenem <=0.25 S susceptib le Not Available [facility] [address], [place], [address], 08/27/2024 11:27:28 08/25/19 25 08/24/2024 MICRO SENSI TIVIT Y organism Esch. coli Not Available [facility] [address], [place], [address], 08/27/2024 11:27:28 08/25/19 25 08/24/2024 RESIS SVETLANA MCWILLIAMS RS ampc resistance marker Not Detect ed normal Not Available [facility] [address], [place], [address], 08/27/2024 11:27:27 08/25/19 25 08/24/2024 RESIS SVETLANA MCWILLIAMS RS carbapenem resistance markers Not Detect ed normal Not Available [facility] [address], [place], [address], 08/27/2024 11:27:27 08/25/19 25 08/24/2024 RESIS TANCE MARKE RS esbl resistance markers Not Detect ed normal Not Available [facility] [address], [place], [address], 08/27/2024 11:27:27 08/25/19 25 08/24/2024 RESIS TANCE MARKE RS macrolide resistance markers Detect ed abnormal Not Available [facility] [address], [place], [address], 08/27/2024 11:27:27 08/25/19 25 08/24/2024 RESIS TANCE MARKE RS quinolone resistance markers Not Detect ed normal Not Available [facility] [address], [place], [address], 08/27/2024 11:27:27 08/25/19 25 08/24/2024 RESIS TANCE MARKE RS vancomycin resistance markers Not Detect ed normal Not Available [facility] [address], [place], [address], 08/27/2024 11:27:27 08/25/19 25 08/25/2024 UTI ID PANEL COMPL ETE, PCR garry albicans Not Detect ed not detect ed normal Not Available [facility] [address], [place], [address], 08/27/2024 11:27:26 08/25/19 25 08/25/2024 UTI ID PANEL COMPL ETE, PCR garry glabrata Not Detect ed not detect ed normal Not Available [facility] [address], [place], [address], 08/27/2024 11:27:26 08/25/19 25 08/25/2024 UTI ID PANEL COMPL ETE, PCR garry krusei Not Detect ed not detect ed normal Not Available [facility] [address], [place], [address], 08/27/2024 11:27:26 08/25/19 25 08/25/2024 UTI ID PANEL COMPL ETE, PCR garry lusitaniae Not Detect ed not detect ed normal Not Available [facility] [address], [place], [address], 08/27/2024 11:27:26 08/25/19 25 08/25/2024 UTI ID PANEL COMPL ETE, PCR garry parapsilosis Not Detect ed not detect ed normal Not Available [facility] [address], [place], [address], 08/27/2024 11:27:26 08/25/19 25 08/25/2024 UTI ID PANEL COMPL ETE, PCR garry tropicalis Not Detect ed not detect ed normal Not Available [facility] [address], [place], [address], 08/27/2024 11:27:26 08/25/19 25 08/25/2024 UTI ID PANEL COMPL ETE, PCR enterobacter cloacae Not Detect ed not detect ed normal Not Available [facility] [address], [place], [address], 08/27/2024 11:27:26 08/25/19 25 08/25/2024 UTI ID PANEL COMPL ETE, PCR enterococcus faecalis High not detect ed high Not Available [facility] [address], [place], [address], 08/27/2024 11:27:26 08/25/19 25 08/25/2024 UTI ID PANEL COMPL ETE, PCR escherichia coli High not detect ed high Not Available [facility] [address], [place], [address], 08/27/2024 11:27:26 08/25/19 25 08/25/2024 UTI ID PANEL COMPL ETE, PCR klebsiella oxytoca Not Detect ed not detect ed normal Not Available [facility] [address], [place], [address], 08/27/2024 11:27:26 08/25/19 25 08/25/2024 UTI ID PANEL COMPL ETE, PCR klebsiella pneumoniae Not Detect ed not detect ed normal Not Available [facility] [address], [place], [address], 08/27/2024 11:27:26 08/25/19 25 08/25/2024 UTI ID PANEL COMPL ETE, PCR morganella morganii Not Detect ed not detect ed normal Not Available [facility] [address], [place], [address], 08/27/2024 11:27:26 08/25/19 25 08/25/2024 UTI ID PANEL COMPL ETE, PCR mycoplasma hominis Not Detect ed not detect ed normal Not Available [facility] [address], [place], [address], 08/27/2024 11:27:26 08/25/19 25 08/25/2024 UTI ID PANEL COMPL ETE, PCR proteus mirabilis Not Detect ed not detect ed normal Not Available [facility] [address], [place], [address], 08/27/2024 11:27:26 08/25/19 25 08/25/2024 UTI ID PANEL COMPL ETE, PCR providencia stuartii Not Detect ed not detect ed normal Not Available [facility] [address], [place], [address], 08/27/2024 11:27:26 08/25/19 25 08/25/2024 UTI ID PANEL COMPL ETE, PCR pseudomonas aeruginosa Not Detect ed not detect ed normal Not Available [facility] [address], [place], [address], 08/27/2024 11:27:26 08/25/19 25 08/25/2024 UTI ID PANEL COMPL ETE, PCR serratia marcescens Not Detect ed not detect ed normal Not Available [facility] [address], [place], [address], 08/27/2024 11:27:26 08/25/19 25 08/25/2024 UTI ID PANEL COMPL ETE, PCR staphylococc us aureus - wound & urine Not Detect ed not detect ed normal Not Available [facility] [address], [place], [address], 08/27/2024 11:27:26 08/25/19 25 08/25/2024 UTI ID PANEL COMPL ETE, PCR staphylococc us saprophyticu s Not Detect ed not detect ed normal Not Available [facility] [address], [place], [address], 08/27/2024 11:27:26 08/25/19 25 08/25/2024 UTI ID PANEL COMPL ETE, PCR streptococcu s agalactiae Not Detect ed not detect ed normal Not Available [facility] [address], [place], [address], 08/27/2024 11:27:26 08/25/19 25 08/25/2024 UTI ID PANEL COMPL ETE, PCR ureaplasma urealyticum Not Detect ed not detect ed normal Not Available [facility] [address], [place], [address], 08/27/2024 11:27:26 08/25/19 25 08/26/2024 UTI ID PANEL COMPL ETE, PCR growth 24 Growth abnormal @24 Hours Gram Negat paul Growt h, Not Available [facility] [address], [place], [address], 08/27/2024 11:27:26 08/25/19 25 08/24/2024 urina lysis , dipst ick Leukocytes Small Not Available [facility] [address] [place], [address], 08/20/2024 14:52:57 08/25/19 25 08/24/2024 urina lysis , dipst ick Nitrite negati ve Not Available [facility] [address] [place], [address], 08/20/2024 14:52:57 08/25/19 25 08/24/2024 urina lysis , dipst ick Urobilinogen .2 Not Available [facility] [address] [place], [address], 08/20/2024 14:52:57 08/25/19 25 08/24/2024 urina lysis , dipst ick Protein 100 Not Available [facility] [address] [place], [address], 08/20/2024 14:52:57 08/25/19 25 08/24/2024 urina lysis , dipst ick pH 6.0 Not Available [facility] [address] [place], [address], 08/20/2024 14:52:57 08/25/19 25 08/24/2024 urina lysis , dipst ick Blood Modera te Not Available [facility] [address] [place], [address], 08/20/2024 14:52:57 08/25/19 25 08/24/2024 urina lysis , dipst ick Specific Reading 1.020 Not Available [facility] [address] [place], [address], 08/20/2024 14:52:57 08/25/19 25 08/24/2024 urina lysis , dipst ick Ketone Negati ve Not Available [facility] [address] [place], [address], 08/20/2024 14:52:57 08/25/19 25 08/24/2024 urina lysis , dipst ick Bilirubin Negati ve Not Available [facility] [address] [place], [address], 08/20/2024 14:52:57 08/25/19 25 08/24/2024 urina lysis , dipst ick Glucose Negati ve Not Available [facility] [address] [place], [address], 08/20/2024 14:52:57 08/25/19 25 08/24/2024 urina lysis , dipst ick Appearance Cloudy Not Available [facility] [address] [place], [address], 08/20/2024 14:52:57 08/25/19 25 08/24/2024 urina lysis , dipst ick Color Yellow Not Available [facility] [address] [place], [address], 08/20/2024 14:52:57 09/03/19 25 09/02/2024 drug scree n, urine THC negati ve Not Available [address], [address], 09/02/2024 14:36:30 09/03/19 25 09/02/2024 drug scree n, urine TCA negati ve Not Available [address], [address], 09/02/2024 14:36:30 09/03/19 25 09/02/2024 drug scree n, urine BAR negati ve Not Available [address], [address], 09/02/2024 14:36:30 09/03/19 25 09/02/2024 drug scree n, urine BZO negati ve Not Available [address], [address], 09/02/2024 14:36:30 09/03/19 25 09/02/2024 drug scree n, urine MTD negati ve Not Available [address], [address], 09/02/2024 14:36:30 09/03/19 25 09/02/2024 drug scree n, urine AMP negati ve Not Available [address], [address], 09/02/2024 14:36:30 09/03/19 25 09/02/2024 drug scree n, urine MOP negati ve Not Available [address], [address], 09/02/2024 14:36:30 09/03/19 25 09/02/2024 drug scree n, urine OXY negati ve Not Available [address], [address], 09/02/2024 14:36:30 09/03/19 25 09/02/2024 drug scree n, urine MDMA negati ve Not Available [address], [address], 09/02/2024 14:36:30 09/03/19 25 09/02/2024 drug scree n, urine BULMARO negati ve Not Available [address], [address], 09/02/2024 14:36:30 09/03/19 25 09/02/2024 drug scree n, urine PCP negati ve Not Available [address], [address], 09/02/2024 14:36:30 09/03/19 25 09/02/2024 drug scree n, urine MET negati ve Not Available [facility] [address] [facility], [place], [address], 09/02/2024 14:36:30 09/11/19 25 09/11/2024 UTI ID PANEL COMPL ETE, PCR garry albicans Not Detect ed not detect ed normal Not Available [facility] [address], [place], [address], 09/11/2024 15:16:33 09/11/19 25 09/11/2024 UTI ID PANEL COMPL ETE, PCR garry glabrata Not Detect ed not detect ed normal Not Available [facility] [address], [place], [address], 09/11/2024 15:16:33 09/11/19 25 09/11/2024 UTI ID PANEL COMPL ETE, PCR garry krusei Not Detect ed not detect ed normal Not Available [facility] [address], [place], [address], 09/11/2024 15:16:33 09/11/19 25 09/11/2024 UTI ID PANEL COMPL ETE, PCR garry lusitaniae Not Detect ed not detect ed normal Not Available [facility] [address], [place], [address], 09/11/2024 15:16:33 09/11/19 25 09/11/2024 UTI ID PANEL COMPL ETE, PCR garry parapsilosis Not Detect ed not detect ed normal Not Available [facility] [address], [place], [address], 09/11/2024 15:16:33 09/11/19 25 09/11/2024 UTI ID PANEL COMPL ETE, PCR garry tropicalis Not Detect ed not detect ed normal Not Available [facility] [address], [place], [address], 09/11/2024 15:16:33 09/11/19 25 09/11/2024 UTI ID PANEL COMPL ETE, PCR enterobacter cloacae Not Detect ed not detect ed normal Not Available [facility] [address], [place], [address], 09/11/2024 15:16:33 09/11/19 25 09/11/2024 UTI ID PANEL COMPL ETE, PCR enterococcus faecalis Not Detect ed not detect ed normal Not Available [facility] [address], [place], [address], 09/11/2024 15:16:33 09/11/19 25 09/11/2024 UTI ID PANEL COMPL ETE, PCR escherichia coli Not Detect ed not detect ed normal Not Available [facility] [address], [place], [address], 09/11/2024 15:16:33 09/11/19 25 09/11/2024 UTI ID PANEL COMPL ETE, PCR klebsiella oxytoca Not Detect ed not detect ed normal Not Available [facility] [address], [place], [address], 09/11/2024 15:16:33 09/11/19 25 09/11/2024 UTI ID PANEL COMPL ETE, PCR klebsiella pneumoniae Not Detect ed not detect ed normal Not Available [facility] [address], [place], [address], 09/11/2024 15:16:33 09/11/19 25 09/11/2024 UTI ID PANEL COMPL ETE, PCR morganella morganii Not Detect ed not detect ed normal Not Available [facility] [address], [place], [address], 09/11/2024 15:16:33 09/11/19 25 09/11/2024 UTI ID PANEL COMPL ETE, PCR mycoplasma hominis Not Detect ed not detect ed normal Not Available [facility] [address], [place], [address], 09/11/2024 15:16:33 09/11/19 25 09/11/2024 UTI ID PANEL COMPL ETE, PCR proteus mirabilis Not Detect ed not detect ed normal Not Available [facility] [address], [place], [address], 09/11/2024 15:16:33 09/11/19 25 09/11/2024 UTI ID PANEL COMPL ETE, PCR providencia stuartii Not Detect ed not detect ed normal Not Available [facility] [address], [place], [address], 09/11/2024 15:16:33 09/11/19 25 09/11/2024 UTI ID PANEL COMPL ETE, PCR pseudomonas aeruginosa Not Detect ed not detect ed normal Not Available [facility] [address], [place], [address], 09/11/2024 15:16:33 09/11/19 25 09/11/2024 UTI ID PANEL COMPL ETE, PCR serratia marcescens Not Detect ed not detect ed normal Not Available [facility] [address], [place], [address], 09/11/2024 15:16:33 09/11/19 25 09/11/2024 UTI ID PANEL COMPL ETE, PCR staphylococc us aureus - wound & urine Not Detect ed not detect ed normal Not Available [facility] [address], [place], [address], 09/11/2024 15:16:33 09/11/19 25 09/11/2024 UTI ID PANEL COMPL ETE, PCR staphylococc us saprophyticu s Not Detect ed not detect ed normal Not Available [facility] [address], [place], [address], 09/11/2024 15:16:33 09/11/19 25 09/11/2024 UTI ID PANEL COMPL ETE, PCR streptococcu s agalactiae Not Detect ed not detect ed normal Not Available [facility] [address], [place], [address], 09/11/2024 15:16:33 09/11/19 25 09/11/2024 UTI ID PANEL COMPL ETE, PCR ureaplasma urealyticum Not Detect ed not detect ed normal Not Available [facility] [address], [place], [address], 09/11/2024 15:16:33 09/28/19 25 09/28/2024 NUSWA B VAGIN ITIS PLUS (VG+) atopobium vaginae LOW - 0 score Not Available [facility] ([facility]) [address] [place], [address], 09/30/2024 01:06:56 09/28/1909/28/2024 NUA B VAGIN ITIS PLUS (VG+) bvab 2 LOW - 0 score Not Available [facility] ([facility]) [address] [place], [address], 09/30/2024 01:06:56 09/28/19 25 09/28/2024 NUA B VAGIN ITIS PLUS (VG+) megasphaera 1 LOW - 0 score Calcu late total score by kim kwok the 3 indiv idual bacte rial vagin osis (BV) marke r score s toget her. Total score is inter prete d as follo ws: Total score 0-1: Indic ates the absen ce of BV. Total score 2: Indet ermin ate for BV. Addit ional clini sundar data shoul d be evalu ated to estab allison a diagn osis. Total score 3-6: Indic ates the prese nce of BV. Not Available [facility] ([facility]) [address] [place], [address], 09/30/2024 01:06:56 09/28/19 25 09/28/2024 NUSWA B VAGIN ITIS PLUS (VG+) garry albicans, ERNESTINA NEGATI VE negati ve Not Available [facility] ([facility]) [address] [place], [address], 09/30/2024 01:06:56 09/28/19 25 09/28/2024 NUSWA B VAGIN ITIS PLUS (VG+) garry glabrata, ERNESTINA NEGATI VE negati ve Not Available [facility] ([facility]) [address] [facility], [place], [address], 09/30/2024 01:06:56 09/28/19 25 09/29/2024 NUA B VAGIN ITIS PLUS (VG+) trich vag by ERNESTINA NEGATI VE negati ve Not Available [facility] ([facility]) [address] [place], [address], 09/30/2024 01:06:56 09/28/19 25 09/29/2024 NUA B VAGIN ITIS PLUS (VG+) chlamydia trachomatis, ERNESTINA NEGATI VE negati ve Not Available [facility] ([facility]) [address] [facility], [place], [address], 09/30/2024 01:06:56 09/28/19 25 09/29/2024 NUA B VAGIN ITIS PLUS (VG+) neisseria gonorrhoeae, ERNESTINA NEGATI VE negati ve Not Available [facility] ([facility]) [address] [facility], [place], [address], 09/30/2024 01:06:56 09/28/19 25 09/30/2024 URINE CULTU RECAROL NE urine culture, routine FINAL REPORT abnormal Not Available [facility] ([facility]) [address] [place], [address], 09/30/2024 01:06:56 09/28/19 25 09/30/2024 URINE CULTU RE, ROUTI NE result 1 ENTERO COCCUS FAECAL IS abnormal Enter ococc i susce ptibl e to penic illin are predi ctabl y susce ptibl e to ampic illin , amoxi cilli n, ampic illin -sulb actam , amoxi cilli n-cla vulan ate, and piper acill in-ta zobac johnson for non-b eta-l actam ase produ cing enter ococc i. (CLSI 2018) For Enter ococc us speci es, amino glyco sides (exce pt for high- level resis tance siva cheek) , cepha lospo rins, clind amyci n, and trime thopr im-dominguez lfame thoxa zole are not effec tive clini estuardo . (CLSI , M100- S26, 2016) Great er than 100,0 00 colon y formi ng units per mL Note: this isola te is vanco mycin -susc eptib le. This infor matio n is provi ded for epide miolo gic purpo ses only: vanco mycin is not among the antib iotic s recom aime d for thera py of urina ry tract infec tions cause d by Enter ococc us. Not Available [facility] ([facility]) [address] [facility], [place], [address], 09/30/2024 01:06:56 09/28/19 25 09/30/2024 URINE CULTU RE, ROUTI NE antimicrobia l susceptibili ty COMMEN T S = Susce ptibl e; I = Inter media te; R = Resis tant P = Posit paul; N = Negat paul MICS are expre ssed in micro grams per mL Antib iotic RSLT# 1 RSLT# 2 RSLT# 3 RSLT# 4 Cipro floxa idalia R Levof loxac in R Nitro furan toin S Penic illin S Tetra cycli ne R Vanco mycin S Not Available [facility] ([facility]) [address] [facility], [place], [address], 09/30/2024 01:06:56 09/28/19 25 09/27/2024 urina lysis , dipst ick Leukocytes Small Not Available [address], [place], [address], 09/27/2024 11:53:59 09/28/19 25 09/27/2024 urina lysis , dipst ick Nitrite negati ve Not Available [address], [address], 09/27/2024 11:53:59 09/28/19 25 09/27/2024 urina lysis , dipst ick Urobilinogen .2 Not Available [facility] [address], [address], 09/27/2024 11:53:59 09/28/19 25 09/27/2024 urina lysis , dipst ick Protein 300 Not Available [address], [address], 09/27/2024 11:53:59 09/28/19 25 09/27/2024 urina lysis , dipst ick pH 5.5 Not Available [address], [address], 09/27/2024 11:53:59 09/28/19 25 09/27/2024 urina lysis , dipst ick Blood Non-He molyze d: Trace Not Available [address], [address], 09/27/2024 11:53:59 09/28/19 25 09/27/2024 urina lysis , dipst ick Specific Reading 1.030 Not Available [address], [address], 09/27/2024 11:53:59 09/28/19 25 09/27/2024 urina lysis , dipst ick Ketone Negati ve Not Available [address], [address], 09/27/2024 11:53:59 09/28/19 25 09/27/2024 urina lysis , dipst ick Bilirubin Negati ve Not Available [address], [address], 09/27/2024 11:53:59 09/28/19 25 09/27/2024 urina lysis , dipst ick Glucose Negati ve Not Available [address], [address], 09/27/2024 11:53:59 09/28/19 25 09/27/2024 urina lysis , dipst ick Appearance Clear Not Available [address], [address], 09/27/2024 11:53:59 09/28/19 25 09/27/2024 urina lysis , dipst ick Color Yellow Not Available [address], [address], 09/27/2024 11:53:59 10/09/19 25 10/08/2024 MICRO SENSI TIVIT Y abnormal status abnormal Not Available [facility] [address], [place], [address], 10/11/2024 07:49:43 10/09/19 25 10/08/2024 MICRO SENSI TIVIT Y abnormal status high Not Available [facility] [address], [place], [address], 10/11/2024 07:49:43 10/09/19 25 10/08/2024 MICRO SENSI TIVIT Y abnormal status resistant Not Available [facility] [address], [place], [address], 10/11/2024 07:49:43 10/09/19 25 10/08/2024 MICRO SENSI TIVIT Y abnormal status susceptib le Not Available [facility] [address], [place], [address], 10/11/2024 07:49:43 10/09/19 25 10/08/2024 MICRO SENSI TIVIT Y ampicillin 16 R resistant Not Available [facility] [address], [place], [address], 10/11/2024 07:49:42 10/09/19 25 10/08/2024 MICRO SENSI TIVIT Y amikacin <=8 S susceptib le Not Available [facility] [address], [place], [address], 10/11/2024 07:49:42 10/09/19 25 10/08/2024 MICRO SENSI TIVIT Y aztreonam <=2 S susceptib le Not Available [facility] [address], [place], [address], 10/11/2024 07:49:42 10/09/19 25 10/08/2024 MICRO SENSI TIVIT Y ceftazidime <=2 S susceptib le Not Available [facility] [address], [place], [address], 10/11/2024 07:49:42 10/09/19 25 10/08/2024 MICRO SENSI TIVIT Y ciprofloxaci n <=0.25 S susceptib le Not Available [facility] [address], [place], [address], 10/11/2024 07:49:42 10/09/19 25 10/08/2024 MICRO SENSI TIVIT Y ceftriaxone <=1 S susceptib le Not Available [facility] [address], [place], [address], 10/11/2024 07:49:42 10/09/19 25 10/08/2024 MICRO SENSI TIVIT Y cefepime <=1 S susceptib le Not Available [facility] [address], [place], [address], 10/11/2024 07:49:42 10/09/19 25 10/08/2024 MICRO SENSI TIVIT Y nitrofuranto in 32 S susceptib le Not Available [facility] [address], [place], [address], 10/11/2024 07:49:42 10/09/19 25 10/08/2024 MICRO SENSI TIVIT Y gentamicin <=2 S susceptib le Not Available [facility] [address], [place], [address], 10/11/2024 07:49:42 10/09/19 25 10/08/2024 MICRO SENSI TIVIT Y levofloxacin <=0.5 S susceptib le Not Available [facility] [address], [place], [address], 10/11/2024 07:49:42 10/09/19 25 10/08/2024 MICRO SENSI TIVIT Y meropenem <=0.5 S susceptib le Not Available [facility] [address], [place], [address], 10/11/2024 07:49:42 10/09/19 25 10/08/2024 MICRO SENSI TIVIT Y tobramycin <=2 S susceptib le Not Available [facility] [address], [place], [address], 10/11/2024 07:49:42 10/09/19 25 10/08/2024 MICRO SENSI TIVIT Y ampicillin/s ulbactam 8/4 S susceptib le Not Available [facility] [address], [place], [address], 10/11/2024 07:49:42 10/09/19 25 10/08/2024 MICRO SENSI TIVIT Y trimethoprim /sulfamethox azole <=0.5/ 9.5 S susceptib le Not Available [facility] [address], [place], [address], 10/11/2024 07:49:42 10/09/19 25 10/08/2024 MICRO SENSI TIVIT Y tetracycline <=2 S susceptib le Not Available [facility] [address], [place], [address], 10/11/2024 07:49:42 10/09/19 25 10/08/2024 MICRO SENSI TIVIT Y piperacillin /tazobactam 4/4 S susceptib le Not Available [facility] [address], [place], [address], 10/11/2024 07:49:42 10/09/19 25 10/08/2024 MICRO SENSI TIVIT Y ertapenem <=0.25 S susceptib le Not Available [facility] [address], [place], [address], 10/11/2024 07:49:42 10/09/19 25 10/08/2024 MICRO SENSI TIVIT Y organism Kleb. pneumo . ssp pneu. Not Available [facility] [address], [place], [address], 10/11/2024 07:49:42 10/09/19 25 10/08/2024 RESIS SVETLANA MCWILLIAMS RS ampc resistance marker Not Detect ed normal Not Available [facility] [address], [place], [address], 10/11/2024 07:49:42 10/09/19 25 10/08/2024 RESIS SVETLANA MCWILLIAMS RS carbapenem resistance markers Not Detect ed normal Not Available [facility] [address], [place], [address], 10/11/2024 07:49:42 10/09/19 25 10/08/2024 RESIS SVETLANA MCWILLIAMS RS esbl resistance markers Detect ed abnormal Not Available [facility] [address], [place], [address], 10/11/2024 07:49:42 10/09/19 25 10/08/2024 CODY HERCULES quinolone resistance markers Not Detect ed normal Not Available [facility] [address], [place], [address], 10/11/2024 07:49:42 10/09/19 25 10/09/2024 UTI ID PANEL COMPL ETE, PCR garry albicans Not Detect ed not detect ed normal Not Available [facility] [address], [place], [address], 10/11/2024 07:49:41 10/09/19 25 10/09/2024 UTI ID PANEL COMPL ETE, PCR garry glabrata Not Detect ed not detect ed normal Not Available [facility] [address], [place], [address], 10/11/2024 07:49:41 10/09/19 25 10/09/2024 UTI ID PANEL COMPL ETE, PCR garry krusei Not Detect ed not detect ed normal Not Available [facility] [address], [place], [address], 10/11/2024 07:49:41 10/09/19 25 10/09/2024 UTI ID PANEL COMPL ETE, PCR garry lusitaniae Not Detect ed not detect ed normal Not Available [facility] [address], [place], [address], 10/11/2024 07:49:41 10/09/19 25 10/09/2024 UTI ID PANEL COMPL ETE, PCR garry parapsilosis Not Detect ed not detect ed normal Not Available [facility] [address], [place], [address], 10/11/2024 07:49:41 10/09/19 25 10/09/2024 UTI ID PANEL COMPL ETE, PCR garry tropicalis Not Detect ed not detect ed normal Not Available [facility] [address], [place], [address], 10/11/2024 07:49:41 10/09/19 25 10/09/2024 UTI ID PANEL COMPL ETE, PCR enterobacter cloacae Not Detect ed not detect ed normal Not Available [facility] [address], [place], [address], 10/11/2024 07:49:41 10/09/19 25 10/09/2024 UTI ID PANEL COMPL ETE, PCR enterococcus faecalis Not Detect ed not detect ed normal Not Available [facility] [address], [place], [address], 10/11/2024 07:49:41 10/09/19 25 10/09/2024 UTI ID PANEL COMPL ETE, PCR escherichia coli Not Detect ed not detect ed normal Not Available [facility] [address], [place], [address], 10/11/2024 07:49:41 10/09/19 25 10/09/2024 UTI ID PANEL COMPL ETE, PCR klebsiella oxytoca Not Detect ed not detect ed normal Not Available [facility] [address], [place], [address], 10/11/2024 07:49:41 10/09/1910/09/2024 UTI ID PANEL COMPL ETE, PCR klebsiella pneumoniae High not detect ed high Not Available [facility] [address], [place], [address], 10/11/2024 07:49:41 10/09/1910/09/2024 UTI ID PANEL COMPL ETE, PCR morganella morganii Not Detect ed not detect ed normal Not Available [facility] [address], [place], [address], 10/11/2024 07:49:41 10/09/1910/09/2024 UTI ID PANEL COMPL ETE, PCR mycoplasma hominis Not Detect ed not detect ed normal Not Available [facility] [address], [place], [address], 10/11/2024 07:49:41 10/09/1910/09/2024 UTI ID PANEL COMPL ETE, PCR proteus mirabilis Not Detect ed not detect ed normal Not Available [facility] [address], [place], [address], 10/11/2024 07:49:41 10/09/19 25 10/09/2024 UTI ID PANEL COMPL ETE, PCR providencia stuartii Not Detect ed not detect ed normal Not Available [facility] [address], [place], [address], 10/11/2024 07:49:41 10/09/19 25 10/09/2024 UTI ID PANEL COMPL ETE, PCR pseudomonas aeruginosa Not Detect ed not detect ed normal Not Available [facility] [address], [place], [address], 10/11/2024 07:49:41 10/09/19 25 10/09/2024 UTI ID PANEL COMPL ETE, PCR serratia marcescens Not Detect ed not detect ed normal Not Available [facility] [address], [place], [address], 10/11/2024 07:49:41 10/09/19 25 10/09/2024 UTI ID PANEL COMPL ETE, PCR staphylococc us aureus - wound & urine Not Detect ed not detect ed normal Not Available [facility] [address], [place], [address], 10/11/2024 07:49:41 10/09/19 25 10/09/2024 UTI ID PANEL COMPL ETE, PCR staphylococc us saprophyticu s Not Detect ed not detect ed normal Not Available [facility] [address], [place], [address], 10/11/2024 07:49:41 10/09/19 25 10/09/2024 UTI ID PANEL COMPL ETE, PCR streptococcu s agalactiae Not Detect ed not detect ed normal Not Available [facility] [address], [place], [address], 10/11/2024 07:49:41 10/09/19 25 10/09/2024 UTI ID PANEL COMPL ETE, PCR ureaplasma urealyticum Not Detect ed not detect ed normal Not Available [facility] [address], [place], [address], 10/11/2024 07:49:41 10/09/19 25 10/10/2024 UTI ID PANEL COMPL ETE, PCR growth 24 Growth abnormal @24 Hours Gram Negat paul Growt h, Not Available [facility] [address], [place], [address], 10/11/2024 07:49:41 10/09/19 25 10/08/2024 urina lysis , dipst ick Leukocytes Trace Not Available [facility] [address] [place], [address], 10/04/2024 09:39:08 10/09/19 25 10/08/2024 urina lysis , dipst ick Nitrite negati ve Not Available [facility] [address] [place], [address], 10/04/2024 09:39:08 10/09/19 25 10/08/2024 urina lysis , dipst ick Urobilinogen .2 Not Available [facility] [address] [place], [address], 10/04/2024 09:39:08 10/09/19 25 10/08/2024 urina lysis , dipst ick Protein 100 Not Available [facility] [address] [place], [address], 10/04/2024 09:39:08 10/09/19 25 10/08/2024 urina lysis , dipst ick pH 5.5 Not Available [facility] [address] [place], [address], 10/04/2024 09:39:08 10/09/19 25 10/08/2024 urina lysis , dipst ick Blood Negati ve Not Available [facility] [address] [place], [address], 10/04/2024 09:39:08 10/09/19 25 10/08/2024 urina lysis , dipst ick Specific Reading 1.030 Not Available [facility] [address] [place], [address], 10/04/2024 09:39:08 10/09/19 25 10/08/2024 urina lysis , dipst ick Ketone Negati ve Not Available [facility] [address] [place], [address], 10/04/2024 09:39:08 10/09/19 25 10/08/2024 urina lysis , dipst ick Bilirubin Negati ve Not Available [facility] [address] [place], [address], 10/04/2024 09:39:08 10/09/19 25 10/08/2024 urina lysis , dipst ick Glucose Negati ve Not Available [facility] [address] [place], [address], 10/04/2024 09:39:08 10/09/19 25 10/08/2024 urina lysis , dipst ick Appearance Clear Not Available [facility] [address] [place], [address], 10/04/2024 09:39:08 10/09/19 25 10/08/2024 urina lysis , dipst ick Color Yellow Not Available [facility] [address] [place], [address], 10/04/2024 09:39:08 10/23/19 25 10/22/2024 MICRO SENSI TIVIT Y abnormal status abnormal Not Available [facility] [address], [place], [address], 10/25/2024 08:35:54 10/23/19 25 10/22/2024 MICRO SENSI TIVIT Y abnormal status high Not Available [facility] [address], [place], [address], 10/25/2024 08:35:54 10/23/1910/22/2024 MICRO SENSI TIVIT Y abnormal status intermedi ate Not Available [facility] [address], [place], [address], 10/25/2024 08:35:54 10/23/19 25 10/22/2024 MICRO SENSI TIVIT Y abnormal status resistant Not Available [facility] [address], [place], [address], 10/25/2024 08:35:54 10/23/1910/22/2024 MICRO SENSI TIVIT Y abnormal status susceptib le Not Available [facility] [address], [place], [address], 10/25/2024 08:35:54 10/23/1910/22/2024 MICRO SENSI TIVIT Y ampicillin >16 R resistant Not Available [facility] [address], [place], [address], 10/25/2024 08:35:53 10/23/1910/22/2024 MICRO SENSI TIVIT Y amikacin <=8 S susceptib le Not Available [facility] [address], [place], [address], 10/25/2024 08:35:53 10/23/19 25 10/22/2024 MICRO SENSI TIVIT Y aztreonam 16 R resistant Not Available [facility] [address], [place], [address], 10/25/2024 08:35:53 10/23/19 25 10/22/2024 MICRO SENSI TIVIT Y ceftazidime 8 intermedi ate Not Available [facility] [address], [place], [address], 10/25/2024 08:35:53 10/23/19 25 10/22/2024 MICRO SENSI TIVIT Y ciprofloxaci n <=0.25 S susceptib le Not Available [facility] [address], [place], [address], 10/25/2024 08:35:53 10/23/19 25 10/22/2024 MICRO SENSI TIVIT Y ceftriaxone 32 R resistant Not Available [facility] [address], [place], [address], 10/25/2024 08:35:53 10/23/19 25 10/22/2024 MICRO SENSI TIVIT Y cefepime 4 intermedi ate Not Available [facility] [address], [place], [address], 10/25/2024 08:35:53 10/23/19 25 10/22/2024 MICRO SENSI TIVIT Y nitrofuranto in <=16 S susceptib le Not Available [facility] [address], [place], [address], 10/25/2024 08:35:53 10/23/19 25 10/22/2024 MICRO SENSI TIVIT Y gentamicin <=2 S susceptib le Not Available [facility] [address], [place], [address], 10/25/2024 08:35:53 10/23/19 25 10/22/2024 MICRO SENSI TIVIT Y levofloxacin <=0.5 S susceptib le Not Available [facility] [address], [place], [address], 10/25/2024 08:35:53 10/23/19 25 10/22/2024 MICRO SENSI TIVIT Y meropenem <=0.5 S susceptib le Not Available [facility] [address], [place], [address], 10/25/2024 08:35:53 10/23/19 25 10/22/2024 MICRO SENSI TIVIT Y tobramycin <=2 S susceptib le Not Available [facility] [address], [place], [address], 10/25/2024 08:35:53 10/23/19 25 10/22/2024 MICRO SENSI TIVIT Y ampicillin/s ulbactam 4/2 S susceptib le Not Available [facility] [address], [place], [address], 10/25/2024 08:35:53 10/23/19 25 10/22/2024 MICRO SENSI TIVIT Y trimethoprim /sulfamethox azole <=0.5/ 9.5 S susceptib le Not Available [facility] [address], [place], [address], 10/25/2024 08:35:53 10/23/19 25 10/22/2024 MICRO SENSI TIVIT Y tetracycline <=2 S susceptib le Not Available [facility] [address], [place], [address], 10/25/2024 08:35:53 10/23/19 25 10/22/2024 MICRO SENSI TIVIT Y piperacillin /tazobactam 4/4 S susceptib le Not Available [facility] [address], [place], [address], 10/25/2024 08:35:53 10/23/19 25 10/22/2024 MICRO SENSI TIVIT Y ertapenem <=0.25 S susceptib le Not Available [facility] [address], [place], [address], 10/25/2024 08:35:53 10/23/19 25 10/22/2024 MICRO SENSI TIVIT Y organism Kleb. pneumo . ssp pneu. Not Available [facility] [address], [place], [address], 10/25/2024 08:35:53 10/23/19 25 10/22/2024 RESIS TANCE MARKE RS ampc resistance marker Not Detect ed normal Not Available [facility] [address], [place], [address], 10/25/2024 08:35:53 10/23/19 25 10/22/2024 RESIS TANCE MARKE RS carbapenem resistance markers Not Detect ed normal Not Available [facility] [address], [place], [address], 10/25/2024 08:35:53 10/23/19 25 10/22/2024 RESIS TANCE MARKE RS esbl resistance markers Detect ed abnormal Not Available [facility] [address], [place], [address], 10/25/2024 08:35:53 10/23/19 25 10/22/2024 RESIS TANCE MARKE RS quinolone resistance markers Not Detect ed normal Not Available [facility] [address], [place], [address], 10/25/2024 08:35:53 10/23/19 25 10/23/2024 UTI ID PANEL COMPL ETE, PCR garry albicans Not Detect ed not detect ed normal Not Available [facility] [address], [place], [address], 10/25/2024 08:35:52 10/23/19 25 10/23/2024 UTI ID PANEL COMPL ETE, PCR garry glabrata Not Detect ed not detect ed normal Not Available [facility] [address], [place], [address], 10/25/2024 08:35:52 10/23/19 25 10/23/2024 UTI ID PANEL COMPL ETE, PCR garry krusei Not Detect ed not detect ed normal Not Available [facility] [address], [place], [address], 10/25/2024 08:35:52 10/23/19 25 10/23/2024 UTI ID PANEL COMPL ETE, PCR garry lusitaniae Not Detect ed not detect ed normal Not Available [facility] [address], [place], [address], 10/25/2024 08:35:52 10/23/19 25 10/23/2024 UTI ID PANEL COMPL ETE, PCR garry parapsilosis Not Detect ed not detect ed normal Not Available [facility] [address], [place], [address], 10/25/2024 08:35:52 10/23/19 25 10/23/2024 UTI ID PANEL COMPL ETE, PCR garry tropicalis Not Detect ed not detect ed normal Not Available [facility] [address], [place], [address], 10/25/2024 08:35:52 10/23/19 25 10/23/2024 UTI ID PANEL COMPL ETE, PCR enterobacter cloacae Not Detect ed not detect ed normal Not Available [facility] [address], [place], [address], 10/25/2024 08:35:52 10/23/19 25 10/23/2024 UTI ID PANEL COMPL ETE, PCR enterococcus faecalis Not Detect ed not detect ed normal Not Available [facility] [address], [place], [address], 10/25/2024 08:35:52 10/23/19 25 10/23/2024 UTI ID PANEL COMPL ETE, PCR escherichia coli Not Detect ed not detect ed normal Not Available [facility] [address], [place], [address], 10/25/2024 08:35:52 10/23/19 25 10/23/2024 UTI ID PANEL COMPL ETE, PCR klebsiella oxytoca Not Detect ed not detect ed normal Not Available [facility] [address], [place], [address], 10/25/2024 08:35:52 10/23/19 25 10/23/2024 UTI ID PANEL COMPL ETE, PCR klebsiella pneumoniae High not detect ed high Not Available [facility] [address], [place], [address], 10/25/2024 08:35:52 10/23/19 25 10/23/2024 UTI ID PANEL COMPL ETE, PCR morganella morganii Not Detect ed not detect ed normal Not Available [facility] [address], [place], [address], 10/25/2024 08:35:52 10/23/19 25 10/23/2024 UTI ID PANEL COMPL ETE, PCR mycoplasma hominis Not Detect ed not detect ed normal Not Available [facility] [address], [place], [address], 10/25/2024 08:35:52 10/23/19 25 10/23/2024 UTI ID PANEL COMPL ETE, PCR proteus mirabilis Not Detect ed not detect ed normal Not Available [facility] [address], [place], [address], 10/25/2024 08:35:52 10/23/19 25 10/23/2024 UTI ID PANEL COMPL ETE, PCR providencia stuartii Not Detect ed not detect ed normal Not Available [facility] [address], [place], [address], 10/25/2024 08:35:52 10/23/19 25 10/23/2024 UTI ID PANEL COMPL ETE, PCR pseudomonas aeruginosa Not Detect ed not detect ed normal Not Available [facility] [address], [place], [address], 10/25/2024 08:35:52 10/23/19 25 10/23/2024 UTI ID PANEL COMPL ETE, PCR serratia marcescens Not Detect ed not detect ed normal Not Available [facility] [address], [place], [address], 10/25/2024 08:35:52 10/23/19 25 10/23/2024 UTI ID PANEL COMPL ETE, PCR staphylococc us aureus - wound & urine Not Detect ed not detect ed normal Not Available [facility] [address], [place], [address], 10/25/2024 08:35:52 10/23/1910/23/2024 UTI ID PANEL COMPL ETE, PCR staphylococc us saprophyticu s Not Detect ed not detect ed normal Not Available [facility] [address], [place], [address], 10/25/2024 08:35:52 10/23/19 25 10/23/2024 UTI ID PANEL COMPL ETE, PCR streptococcu s agalactiae Not Detect ed not detect ed normal Not Available [facility] [address], [place], [address], 10/25/2024 08:35:52 10/23/19 25 10/23/2024 UTI ID PANEL COMPL ETE, PCR ureaplasma urealyticum Not Detect ed not detect ed normal Not Available [facility] [address], [place], [address], 10/25/2024 08:35:52 10/23/19 25 10/24/2024 UTI ID PANEL COMPL ETE, PCR growth 24 Growth abnormal @24 Hours Gram Negat paul Growt h, Not Available [facility] [address], [place], [address], 10/25/2024 08:35:52 08/04/19 25 US, retro perit oneum , compl ete No observ ation record ed. [email or web address] Not Available 02/ 16:35:31 Result Notes None recorded. Problems Name Problem SNOMED Code Status Onset Date Resolution Date Notes Provider Name and Address Organization Details Recorded Time Type 2 diabetes mellitus 90624663 Active 2021 Dylan Lebron, MOTION [employer]URE PROJECTIONIST [address], [place], [address], [place] [facility] 10:07:29 Hypertensive disorder 99704078 Active 2021 Dylan Lebron, [employer] PRO[employer]CTIONIST [address], [place], [address], [place] [facility] 10:07:09 Hypercholester olemia 35438074 Active 2021 Dylan Lebron, [employer] PROJECTIONIST [address], [place], [address], [place] [facility] 10:07:05 Gastroesophage al reflux disease 483813144 Active 2021 Dylan Lebron, [employer] PRO[employer]IST [address], [place], [address], [place] [facility] 10:06:49 Hypothyroidism 36282649 Active 2021 Dylan Lebron, [employer] PROJECTIONIST [address], [place], [address], [place] [facility] 10:07:12 Neuropathy 860545607 Active 2021 Dylan Lebron, [employer] PRO[employer]IST [address], [place], [address], [place] [facility] 10:07:19 Arthritis 9021485 Active 2021 Dylan Lebron, [employer] PRO[employer]IST [address], [place], [address], [place] [facility] 10:06:47 Coronary arterioscleros is 08600864 Active 2021 Dylan Lebron, [employer] PROJECTIONIST [address], [place], [address], [place] [facility] 10:18:21 Coronary artery bypass grafts x 3 Active 2021 Dylan Lebron, [employer] PRO[employer]IST [address], [place], [address], [place] [facility] 10:18:34 Problem Notes None recorded. Procedures Surgical History Date Name Laterality Status Provider Name and Address Organization Details Recorded Time 025 Advance Care Planning active Fina Vasquez [place] - [facility] 11/19/2024 10:41:02 025 Functional Status Assessed active Fina Pedro [place] - [facility] 11/19/2024 10:41:02 024 Date of Last Colonoscopy completed Dia Youssef [place] - [facility] 2024 13:27:50 024 Medication Reconcilliation completed Fina Vas[place] - [facility] 12/02/2023 10:36:18 023 In and Out Catheterization completed Margarita Banks, GAMA [address], [place], [address], [place] [facility] 02/13/2023 14:34:26 023 Medication Reconcilliation completed Fina Vasquez [place] - [facility] 01/31/2023 10:55:15 023 Medication Reconcilliation completed Finaradha Vasquez [place] - [facility] 01/06/2023 10:21:27 023 Medication Reconcilliation completed Fina Vas[place] - [facility] 12/12/2022 10:55:58 023 Medication Reconcilliation completed Finaradha Vasquez [place] - [facility] 11/25/2022 14:44:11 023 Date of Last Mammogram completed Dia Leivas [place] - [facility] 10/17/2022 13:02:19 023 Most Recent Mammogram completed Dianando Leivas [place] - [facility] 10/17/2022 13:02:44 023 Back Surgery completed Fina Vasquez [place] - [facility] 12/02/2023 10:40:15 022 Most Recent Bone Density completed Dia Leivas [place] - [facility] 12/20/2021 15:34:15 022 Stress test completed Dia Leivas [place] [facility] 12/20/2021 15:34:16 021 Date of Last Pap Smear completed Fina Pedro [place] - [facility] 02/04/2022 10:35:34 019 Back [...] [facility] 12/17/2021 09:32:01 Gastrointestinal Surgery completed Dia Youssef [place] - [facility] 12/20/2021 15:34:16 Imaging Results None recorded. Procedure Notes None recorded. Medical Equipment None Reported. Allergies Allergen ID Allergen Name Allergen Category Reaction Reaction Severity Criticality Documentation Date Start Date Code Code System Note Provider Name and Address Organization Details Recorded Time 886715 lisinopri l medicatio n rash Not available high 12/17/2021 99925 RxNorm Fina Vasquez null, [place] - [facility] 10:17:08 247639 Oxycontin medicatio n hallucina tions moderate high 12/17/2021 40140 6 RxNorm Finaradha Vasquez [place], [place] - [facility] 10:18:04 700246 codeine medicatio n rash moderate high 12/17/2021 2670 RxNorm Fina Vasquez null, [place] - [facility] 10:16:43 098150 acetamino phen / oxycodone medicatio n hallucina tions severe high 12/17/2021 35454 3 RxNorm Fina Vasquez [place] - [facility] 10:17:43 593119 cephalexi n medicatio n eye swelling Not available low 11/11/2022 2231 RxNorm Fina Vasquez [place] - [facility] 12:54:33 791757 Macrobid medicatio n diarrhea moderate high 01/13/2023 86185 1 RxNorm vomit ing and diarr hea [...] Not Available Not Available Not Available [facility] Valeria 3 mL 08/22 completed Not Available Not [...] saturation in Arterial blood by Pulse oximetry Respiratory rate Systolic blood pressure Diastolic blood pressure Provider Name and Address Organization Details Last Updated DateTime 5 151.13 cm 28.6 kg/m2 07888.3 g 84 /min 92 % 92 % 18 /min 134 mm[Hg] 78 mm[Hg] Xiomara Cai [place] - [facility] 11:02:27 Date Recorded Body height Respiratory rate Body mass index (BMI) Body weight Body temperature Heart rate Oxygen saturation Oxygen saturation in Arterial blood by Pulse oximetry Systolic blood pressure Diastolic blood pressure Provider Name and Address Organization Details Last Updated DateTime 5 151.13 cm 18 /min 28.2 kg/m2 69553.1 2 g 98 [degF] 100 /min 93 % 93 % 160 mm[Hg] 86 mm[Hg] Dia Stears [place] - [facility] 5 14:00:52 Date Recorded Body height Body mass index (BMI) Body weight Respiratory rate Oxygen saturation Oxygen saturation in Arterial blood by Pulse oximetry Heart rate Systolic blood pressure Diastolic blood pressure Provider Name and Address Organization Details Last Updated DateTime 5 151.13 cm 28.4 kg/m2 39834.7 1 g 18 /min 92 % 92 % 90 /min 126 mm[Hg] 78 mm[Hg] Dia Stears [place] - [facility] 5 11:44:21 Date Recorded Body height Body mass index (BMI) Body weight Heart rate Oxygen saturation Oxygen saturation in Arterial blood by Pulse oximetry Systolic blood pressure Diastolic blood pressure Provider Name and Address Organization Details Last Updated DateTime 5 151.13 cm 28.2 kg/m2 36579.1 2 g 86 /min 90 % 90 % 110 mm[Hg] 68 mm[Hg] Marlin Leon [place] - [facility] 5 13:33:59 Date Recorded Body height Respiratory rate Body mass index (BMI) Body weight Heart rate Oxygen saturation Oxygen saturation in Arterial blood by Pulse oximetry Systolic blood pressure Diastolic blood pressure Provider Name and Address Organization Details Last Updated DateTime 5 151.13 cm 20 /min 28 kg/m2 38555.5 2 g 84 /min 94 % 94 % 130 mm[Hg] 82 mm[Hg] Fina Vasquez [place] - [facility] 11:08:45 Social History Question Answer Notes LastModified by Organizat ion Details LastModified Time Tobacco Smoking Status Never Smoker [facility] [facility] 12/17/2021 09:30:03 Do You Have An Advance [...] Or The Highest Degree You Have Received? [id number] Information not available 12/17/2021 Have There Been Any Changes To Your Family Or Social Situation? No Information no t available 07/14/2023 What Is The Fluoride Status Of Your Home? Unknown Information not available 07/14/2023 Have You Recently Or Are You Planning To Travel To An Area With Zika Virus? No Information not available 07/14/2023 Do You Have A Medical Power Of Professor Of Marketing? No Information not available 07/14/2023 What Was [...] anxious, or unable to sleep at night)? [id number] Information not available 12/20/2021 Do you have [...] Joint, or Bone Problems Y Hypercholesterolemia Y Neuropathy Y Heart Disease Y Acid Reflux (GERD) Y Thyroid Problems Y Stroke Y Kidney or Bladder Problems Y Hypertension Y Gynecological History Statement/Question Response [...] high-dose, quadrivalent, PF 02/21/2022 completed Dylan Lebron, GAMA [address], [place], [address], [place] [facility] 03/26/2022 17:30:58 Influenza, high-dose, quadrivalent, PF 04/25/2023 completed Fina Vasquez [place] [facility] 04/25/2023 13:24:26 Influenza, high-dose, trivalent, PF 02/24/2024 completed Fina [place] [facility] 03/11/2024 17:52:11 COVID-19, mRNA, LNP-S, PF, 100 mcg/0.5mL dose or 50 mcg/0.25mL dose 08/02/2020 completed Fina [place] [facility] 08/22/2022 14:19:25 COVID-19, mRNA, LNP-S, PF, 100 mcg/0.5mL dose or 50 mcg/0.25mL dose 08/31/2020 completed Fina Vas[place] [facility] 08/22/2022 14:19:25 COVID-19, mRNA, LNP-S, PF, 100 mcg/0.5mL dose or 50 mcg/0.25mL dose 04/11/2021 completed Fina Vas[place] null[place] [facility] 08/22/2022 14:19:25 Tdap 04/20/2013 completed Fina perales, GEO - [facility] 08/22/2022 14:19:25 zoster live 04/20/2013 completed Fina perales, GEO - [facility] 08/22/2022 14:19:25 Influenza, high-dose, trivalent, PF 05/16/2021 completed Fina perales, GEO - [facility] 08/22/2022 14:19:25 Past Encounters Encounter ID Performer Location Encounter Start Date Encounter Closed Date Diagnosis/Indication Diagnosis SNOMED-CT Code Diagnosis ICD10 Code Diagnosis Note [id number] Dylan Lebron APRN [address] [address] 12/17/2021 08:46:07 12/17/2021 10:35:13 Diabetes mellitus 15264702 E11.9 Overall, pt doing well at this time. Last a1c was 8.1. This has remained stable since previous visit. Pt is due for Diabetic labs at today's visit. Pt will need repeat A1c today. Discussed routine diabetic follow up in 3 months and pt is agreeable. Pt counseled on diet and weight management at today's visit. Pt will try to comply with ADA guidelines in regards to diet and increase daily activity as tolerated. Call or RTC sooner than follow up should any questions or concerns arise. Urinary incontinence 165 470981 R32 pt wants to wait on referral wants to try meds first. if gfr wnl will start mybretriq Hypercholesterolemia 136 82051 E78.00 Hypertensive disorder 38 663782 I10 Hypothyroidism 92662297 E03.9 Neuropathy 313002062 G62 .9 on gabapentin Coronary arteriosclerosis 61776707 I25.10 follow up with cardiology as scheduled [id number] Dylan Lebron APRN [address] [address] 12/20/2021 14:52:20 12/20/2021 17:13:38 Type 2 diabetes mellitus 04978543 E11.21 Insulin pump present 450 345223 Z96.41 increased Education about insulin pump 6763090860 13768 Z46.81 current insulin pump settings:b maru rate 1.9 units/hr midnight to 8 am2.5 units/hr 8am to 12 pmtotal 58.2 units a daymax of 80 units a day adjustment s :basal rate 1.9 units/hr midnight to 8 am2.85 units/hr 8am to 12 pmtotal of 65.55 units in 24 hoursincre ase bolus to each meal and snack Acute urin nasra tract infection 222698630 N39.0 med sent [id number] Dylan Lebron [address] [address] 01/07/2022 13:15:54 01/07/2022 14:11:25 Acute urinary tract infection 239786509 N39.0 med sent Dizzy spells 598181733 R 42 [id number] Dylan Lebron [address] [address] 01/15/2022 14:53:00 01/15/2022 15:42:34 Acute urinary tract infection 938196712 N39.0 med sent, discussed with pharm antibiotic s based on culture, will reculture and sent referral to urology [facility] of [facility] hip joint 0648133595 99279 M25.925 [id number] Dylan Lebron [address] [address] 01/24/2022 10:35:55 01/24/2022 11:11:42 Low back pain 275070484 M54.41 decadron 4mg given im, watch glucose close may need to adjust insulin dose for a few days [id number] Dylan Lebron [address] [address] 01/28/2022 14:54:09 01/28/2022 16:38:47 Neuropathy 866530688 G62.9 on gabapentin Low back pain 118984040 M54.41 [id number] Dylan Lebron [address] [address] 02/04/2022 10:17:23 02/04/2022 11:03:56 Low back pain 365382529 M54.41 Donald report obtained, reviewed, and made part of patient's medical record. After reviewing the history, physical exam and treatment options, prescribin g a controlled substance is considered medically appropriat e for treatment for pain control and improvemen t of function. The risks of tolerance and drug dependence were specifical ly discussed with the patient. The patient denies receiving ongoing pain management from any other provider for this condition. All questions were answered. pt has been given 2 steroid shots but being a diabetic on insulin, will do 3 days or norco until mri resulted [id number] Dylan Lebron [address] [address] 02/21/2022 09:51:52 02/21/2022 11:03:15 Low back pain 952616550 M54.41 Donald report obtained, reviewed, and made part of patient's medical record. After reviewing the history, physical exam and treatment options, prescribin g a controlled substance is considered medically appropriat e for treatment for pain control and improvemen t of function. The risks of tolerance and drug dependence were specifical ly discussed with the patient. The patient denies receiving ongoing pain management from any other provider for this condition. All questions were answered. pt states she can take tramadol.h as csa on file Influenza vaccine needed 0971900954 106 Z23 [id number] Dylan Lebron [address] [address] 08/22/2022 13:52:04 08/22/2022 15:02:08 Neuropathy 456809720 G62.9 Pt compliant with plan of careKasper reviewed and appropriat emedicatio n compliance discussedC ontrol substance agreement on fileuds next visit- pt has pain and difficulty getting on and off toilet Type 2 lexx betes mellitus 75006627 E11.21 labs next visit Hypertensive disorder 38 122383 I10 labs next visit Hypercholesterolemia 136 09047 E78.00 [id number] Tonezion Lebron [address] [address] 11/08/2022 13:31:16 11/08/2022 14:44:29 Acute urinary tract infection 219044082 N39.0 increase fluids Candidiasis of vagina 72 512932 B37.31 [id number] Dylan Lebron APRN [address] [address] 11/19/2022 14:48:02 11/19/2022 15:38:27 Acute confusion 646960165 R41.0 sent to ed for eval- report to Yanelis Arzola RN Abnormal g ait due to muscle weakness 662017293 M62.81 Unsteady when walking 22 513902 R26.89 Abnormal vision 1259591 H54.7 Disorder o f eye movements 26670917 H55.89 [id number] Dylan Lebron APRN [address] [address] 11/25/2022 14:33:30 11/25/2022 15:58:01 Headache 20648258 R51.9 discussed with [place] at dr do office and recommende d going back to ed for eval. pt sent to [facility] for eval report called to Marlin. Abnormal g ait due to muscle weakness 386176650 M62.81 [id number] Dylan Lebron APRN [address] [address] 12/12/2022 10:35:13 12/12/2022 11:44:04 Hypercholesterolemia 54638989 E78.00 Hypertensive disorder 38 473881 I10 Hypothyroidism 63990999 E03.9 Type 2 lexx betes mellitus 28781855 E11.21 Long-term current use of drug therapy 131183386 Z79.899 Long-term current use of insulin 113908178 Z79.4 Insulin pump present 450 623367 Z96.41 Abnormal g ait due to impairment of balance 444977996 R26.89 Hyperkalemia 37890358 E8 7.5 Neuropathy 680731161 G62 .9 Pt compliant with plan of careKasper reviewed and appropriat emedicatio n compliance discussedC ontrol substance agreement on fileuds :12/12/22 [id number] Dylan Lebron APRN [address] [address] 01/06/2023 10:15:58 01/06/2023 11:25:08 Acute urinary tract infection 140168733 N39.0 increase fluids Candidiasis of skin 4988 3006 B37.2 Fatigue 10748066 R53.83 Cobalamin deficiency 190 077182 E53.8 [id number] Dylan Lebron [address] [address] 01/13/2023 09:55:30 01/13/2023 10:48:55 Acute urinary tract infection 325952881 N39.0 increase [address]pok e with dr grajeda will send to [facility] for eval and treatment Low blood pressure 10580 003 I95.9 Abnormal g ait due to muscle weakness 957455018 M62.81 [id number] Dylan Lebron [address] [address] 01/31/2023 10:32:52 01/31/2023 11:32:09 Hypercholesterolemia 35540683 E78.00 History of urinary tract infection 8977273874 107 Z87.440 Muscle weakness 29035156 M62.81 Acute urin nasra tract infection 222517516 N39.0 increase fluidsurol ogy consultcx Hyperglyce sera due to type 2 diabetes mellitus 5092169219 34963 E11.65 Hypoglycemia 998020012 E 16.2 pt would benefit from omnipod 5 and dexcom 6- this could prevent hyper and hypoglycem ia episodes [id number] Margarita Banks [facility] [address] [place] [address] 02/04/2023 14:22:54 02/04/2023 15:54:28 Hypertensive disorder 41735683 I10 Type 2 lexx betes mellitus 76949849 E11.21 Coronary arteriosclerosis 70148167 I25.10 Chronic ki dney disease stage 4 339111147 N18.4 Recurrent urinary tract infection 132206356 N39.0 -continue estradiol VC. Hydronephrosis 21648078 N13.30 Patient me dical record not available 310080184 Z76.89 Mixed urin nasra incontinence 489126989 N39.46 Acute urin nasra tract infection 373222315 N39.0 [id number] [facility] [address] [place] [address] 02/13/2023 13:31:33 02/13/2023 14:44:51 Recurrent urinary tract infection 246976800 N39.0 -continue estradiol VC. Hydronephrosis 13338875 N13.30 Chronic ki dney disease stage 4 488937281 N18.4 Hypertensive disorder 38 338320 I10 Type 2 lexx betes mellitus 46015849 E11.21 Coronary arteriosclerosis 42886569 I25.10 Mixed urin nasra incontinence 522253547 N39.46 [id number] [facility] [address] [place] [address] 03/06/2023 14:23:11 03/06/2023 15:44:51 Recurrent urinary tract infection N39.0 -continue estradiol VC. Hydronephrosis 27708628 N13.30 Chronic ki dney disease stage 4 929563051 N18.4 Hypertensive disorder 38 657983 I10 Type 2 lexx betes mellitus 18237181 E11.21 Coronary arteriosclerosis 40768440 I25.10 Mixed urin nasra incontinence 218318042 N39.46 Acute urin nasra tract infection 425058518 N39.0 [id number] [facility] [address] [place] [address] 03/25/2023 13:36:38 03/25/2023 14:21:18 Recurrent urinary tract infection 888717755 N39.0 -continue estradiol VC. Hydronephrosis 88207188 N13.30 Chronic ki dney disease stage 4 400475404 N18.4 Hypertensive disorder 38 492714 I10 Type 2 lexx betes mellitus 00281456 E11.21 Coronary arteriosclerosis 57793842 I25.10 Mixed urin nasra incontinence 215106379 N39.46 Overactive urinary bladder 884778428 N32.81 -avoid anticholin ergics in this patient d/t potential patient harm. anticholin ergics interact with currently rx medication s and combo may incr. risk of LADLE LINER HELPER depression , psychomoto r impairment . Also pt is 72 years old, and anticholin ergics should be avoided d/t BEERS criteria.B eta 3 agonists are the safest alternativ e for this patient. [id number] Margarita Banks APRN [facility] [address] [place] [address] 05/06/2023 13:48:23 05/06/2023 14:45:17 Recurrent urinary tract infection 378292364 N39.0 -continue estradiol VC. Hydronephrosis 53011489 N13.30 Chronic ki dney disease stage 4 862056281 N18.4 Hypertensive disorder 38 669271 I10 Type 2 lexx betes mellitus 94177928 E11.21 Coronary arteriosclerosis 60163010 I25.10 Mixed urin nasra incontinence 464192152 N39.46 Overactive urinary bladder 782954884 N32.81 -avoid anticholin ergics in this patient d/t potential patient harm. anticholin ergics interact with currently rx medication s and combo may incr. risk of LADLE LINER HELPER depression , psychomoto r impairment . Also pt is 72 years old, and anticholin ergics should be avoided d/t BEERS criteria.B eta 3 agonists are the safest alternativ e for this patient. -PFPT- unable to travel. she does not have a PFPT provider within a [address] from her home.-fail ed bladder training. Acute urin nasra tract infection 512742662 N39.0 [id number] Dylan Lebron APRN [address] [address] 04/03/2023 10:54:18 04/03/2023 12:24:14 Neuropathy 877099389 G62.9 Pt compliant with plan of careKasper reviewed and appropriat emedicatio n compliance discussedC ontrol substance agreement on file Long-term drug therapy 049472131 Z79.899 Coronary arteriosclerosis 19240935 I25.10 follow up with cardiology as scheduled Hypercholesterolemia 136 50252 E78.00 Hypertensive disorder 38 650907 I10 Hypothyroidism 97798695 E03.9 Type 2 lexx betes mellitus 70667764 E11.21 due to hypoglycem ia and her having to treat lows she would benefit from the dexcom g6 and omnipod 5 to mange her lows better. pt is scared of hypoglycem ia so at 100 she is treating low with glucose tablets. pt has been hospitaliz ed due to lows. Hypoglycemia 638225498 E 16.2 pt would benefit from omnipod 5 and dexcom 6- this could prevent hyper and hypoglycem ia episodes [id number] Dylan Lebron APRN [address] [address] 04/25/2023 08:48:34 04/25/2023 10:09:13 Influenza vaccine needed 8494423093 106 Z23 Arthritis 4668617 M19.90 Coronary arteriosclerosis 34515377 I25.10 follow up with cardiology as scheduled Gastroesop hageal reflux disease 715355272 K21.9 Hypercholesterolemia 136 03280 E78.00 Hypertensive disorder 38 377576 I10 Hypothyroidism 78771369 E03.9 Neuropathy 279356791 G62 .9 [facility] and appropriat emedicatio n compliance discussedC ontrol substance agreement on file Type 2 lexx betes mellitus 36047681 E11.21 due to hypoglycem ia and her having to treat lows she would benefit from the dexcom g6 and omnipod 5 to mange her lows better. pt is scared of hypoglycem ia so at 100 she is treating low with glucose tablets. pt has been hospitaliz ed due to lows. 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 Hydronephrosis 21770779 N13.30 Chronic ki dney disease stage 4 487438064 N18.4 Hypertensive disorder 38 572584 I10 Type 2 lexx betes mellitus 51411987 E11.21 Coronary arteriosclerosis 99669186 I25.10 Mixed urin nasra incontinence 394177867 N39.46 Overactive urinary bladder 777901889 N32.81 -avoid anticholin ergics in this patient d/t potential patient harm. anticholin ergics interact with currently rx medication s and combo may incr. risk of LADLE LINER HELPER depression , psychomoto r impairment . Also pt is 72 years old, and anticholin ergics should be avoided d/t BEERS criteria.B eta 3 agonists are the safest alternativ e for this patient. -PFPT- unable to travel. she does not have a PFPT provider within a [address] from her home.-fail ed bladder training. Candidiasis of vagina 72 846304 B37.31 reported per pt with abx tx. [id number] Dylan Lebron APRN [address] [address] 05/23/2023 13:24:23 05/23/2023 14:10:28 History of urinary tract infection 6023194842 107 Z87.440 Increased frequency of urination 075881922 R35.0 Acute back pain with sciatica 172377610 M54.41 monitor glucose close [id number] Margarita Banks APRN [facility] [address] [place] [address] 07/10/2023 11:09:05 07/10/2023 11:36:55 Recurrent urinary tract infection 056373332 N39.0 -continue estradiol VC. Hydronephrosis 29863317 N13.30 Chronic ki dney disease stage 4 617872521 N18.4 Hypertensive disorder 38 773158 I10 Type 2 lexx betes mellitus 23862825 E11.21 Coronary arteriosclerosis 24944975 I25.10 Mixed urin nasra incontinence 704447485 N39.46 Overactive urinary bladder 634403247 N32.81 -avoid anticholin ergics in this patient d/t potential patient harm. anticholin ergics interact with currently rx medication s and combo may incr. risk of LADLE LINER HELPER depression , psychomoto r impairment . Also pt is 72 years old, and anticholin ergics should be avoided d/t BEERS criteria.B eta 3 agonists are the safest alternativ e for this patient. -PFPT- unable to travel. she does not have a PFPT provider within a [address] from her home.-fail ed bladder training. [id number] Dylan Lebron APRN [facility] [address] [place] [address] 07/01/2023 14:51:59 07/01/2023 16:21:06 Arthritis 3358039 M19.90 Neuropathy 873379634 G62 .9 Pt compliant with plan of careKasper reviewed and appropriat emedicatio n compliance discussedC ontrol substance agreement on fileuds: History of urinary tract infection 4069102659 107 Z87.440 Pain of ri ght hip joint 8649051750 00734 M25.551 steroids if no improvemen t will order xrays Pain of ri ght ankle joint 2913536309 7122393 M25.571 Chronic ki dney disease 479425277 N18.9 Middle ear effusion 1004 529437 H74.8X9 steroidsmo nitor glucose close [id number] [facility] [address] [place] [address] 08/20/2023 09:32:55 08/20/2023 10:07:07 Recurrent urinary tract infection 161526242 N39.0 -continue estradiol VC. Hydronephrosis 04932078 N13.30 Chronic ki dney disease stage 4 333754566 N18.4 Hypertensive disorder 38 867629 I10 Type 2 lexx betes mellitus 04504741 E11.21 Coronary arteriosclerosis 45963668 I25.10 Mixed urin nasra incontinence 427982857 N39.46 Overactive urinary bladder 312184002 N32.81 -avoid anticholin ergics in this patient d/t potential patient harm. anticholin ergics interact with currently rx medication s and combo may incr. risk of LADLE LINER HELPER depression , psychomoto r impairment . Also pt is 72 years old, and anticholin ergics should be avoided d/t BEERS criteria.B eta 3 agonists are the safest alternativ e for this patient. -PFPT- unable to travel. she does not have a PFPT provider within a [address] from her home.-fail ed bladder training. [id number] [facility] [address] [place] [address] 10/01/2023 10:33:52 10/01/2023 11:15:46 Recurrent urinary tract infection N39.0 -continue estradiol VC. Hydronephrosis 73121067 N13.30 Chronic ki dney disease stage 4 072218315 N18.4 Hypertensive disorder 38 475279 I10 Type 2 lexx betes mellitus 32800796 E11.21 Coronary arteriosclerosis 94119796 I25.10 Mixed urin nasra incontinence 786570645 N39.46 Overactive urinary bladder 833719268 N32.81 -avoid anticholin ergics in this patient d/t potential patient harm. anticholin ergics interact with currently rx medication s and combo may incr. risk of LADLE LINER HELPER depression , psychomoto r impairment . Also pt is 72 years old, and anticholin ergics should be avoided d/t BEERS criteria.B eta 3 agonists are the safest alternativ e for this patient. -PFPT- unable to travel. she does not have a PFPT provider within a [address] from her home.-fail ed bladder training. [id number] Margarita Banks APRN [facility] [address] [place] [address] 11/12/2023 10:37:57 11/12/2023 11:26:49 Recurrent urinary tract infection N39.0 -continue estradiol VC. Hydronephrosis 08123375 N13.30 Chronic ki dney disease stage 4 607362072 N18.4 Hypertensive disorder 38 931488 I10 Type 2 lexx betes mellitus 93535930 E11.21 Coronary arteriosclerosis 33983386 I25.10 Mixed urin nasra incontinence 813223070 N39.46 Overactive urinary bladder 889710449 N32.81 -avoid anticholin ergics in this patient d/t potential patient harm. anticholin ergics interact with currently rx medication s and combo may incr. risk of LADLE LINER HELPER depression , psychomoto r impairment . Also pt is 72 years old, and anticholin ergics should be avoided d/t BEERS criteria.B eta 3 agonists are the safest alternativ e for this patient. -PFPT- unable to travel. she does not have a PFPT provider within a [address] from her home.-fail ed bladder training. [id number] [facility] [address] [place] [address] 12/31/2023 10:10:39 12/31/2023 10:57:14 Recurrent urinary tract infection N39.0 -continue estradiol VC. Hydronephrosis 12003100 N13.30 Chronic ki dney disease stage 4 033378387 N18.4 Hypertensive disorder 38 557439 I10 Type 2 lexx betes mellitus 90396844 E11.21 Coronary arteriosclerosis 99725400 I25.10 Mixed urin nasra incontinence 276531548 N39.46 Overactive urinary bladder 476797448 N32.81 -avoid anticholin ergics in this patient d/t potential patient harm. anticholin ergics interact with currently rx medication s and combo may incr. risk of LADLE LINER HELPER depression , psychomoto r impairment . Also pt is 72 years old, and anticholin ergics should be avoided d/t BEERS criteria.B eta 3 agonists are the safest alternativ e for this patient. -PFPT- unable to travel. she does not have a PFPT provider within a [address] from her home.-fail ed bladder training. Body mass index 25-29 - overweight 101335308 Z68.28 BMI 28.9 Overweight 163319163 E66 .3 Patient wy dical record not available 561936639 Z76.89 [id number] [facility] [address] [place] [address] 11/27/2023 09:40:33 11/27/2023 10:21:23 Recurrent urinary tract infection N39.0 -continue estradiol VC. Hydronephrosis 24605834 N13.30 Chronic ki dney disease stage 4 679651911 N18.4 Hypertensive disorder 38 206035 I10 Type 2 lexx betes mellitus 66601645 E11.21 Coronary arteriosclerosis 48583251 I25.10 Mixed urin nasra incontinence 484116798 N39.46 Overactive urinary bladder 283986895 N32.81 -avoid anticholin ergics in this patient d/t potential patient harm. anticholin ergics interact with currently rx medication s and combo may incr. risk of LADLE LINER HELPER depression , psychomoto r impairment . Also pt is 72 years old, and anticholin ergics should be avoided d/t BEERS criteria.B eta 3 agonists are the safest alternativ e for this patient. -PFPT- unable to travel. she does not have a PFPT provider within a [address] from her home.-fail ed bladder training. Candidiasis of mouth 797 10380 B37.0 Candidiasis of vagina 72 093581 B37.31 reported per pt with abx tx. Patient wy dical record not available 593229636 Z76.89 [id number] Dylan Lebron APRN [address] [address] 12/02/2023 10:14:12 12/02/2023 11:50:08 Neuropathy 929395359 G62.9 Pt compliant with plan of careKasper reviewed and appropriat emedicatio n compliance discussedC ontrol substance agreement on fileuds: Syncope 113227539 R55 if episode happens go to ed Intermitte nt confusion 957032408 R41.0 referral to neuro Candidiasis of skin 4988 3006 B37.2 yogurt Candidiasis of mouth 797 63682 B37.0 [id number] Margarita Banks [facility] [address] [place] [address] 02/04/2024 11:12:56 02/04/2024 13:31:27 Recurrent urinary tract infection 472357123 N39.0 -continue estradiol VC. Hydronephrosis 25739010 N13.30 Chronic ki dney disease stage 4 137779688 N18.4 Hypertensive disorder 38 210117 I10 Type 2 lexx betes mellitus 14268271 E11.21 Coronary arteriosclerosis 17871875 I25.10 Mixed urin nasra incontinence 133786127 N39.46 Overactive urinary bladder 791385698 N32.81 -avoid anticholin ergics in this patient d/t potential patient harm. anticholin ergics interact with currently rx medication s and combo may incr. risk of LADLE LINER HELPER depression , psychomoto r impairment . Also pt is 72 years old, and anticholin ergics should be avoided d/t BEERS criteria.B eta 3 agonists are the safest alternativ e for this patient. -PFPT- unable to travel. she does not have a PFPT provider within a [address] from her home.-fail ed bladder training. Body mass index 25-29 - overweight 428357122 Z68.28 BMI 28.9 Overweight 027824503 E66 .3 Acute urin nasra tract infection 640558970 N39.0 [id number] Margarita Banks [facility] [address] [place] [address] 03/24/2024 11:07:18 03/24/2024 11:59:47 Recurrent urinary tract infection 371200892 N39.0 -continue estradiol VC. Hydronephrosis 32093309 N13.30 Chronic ki dney disease stage 4 470987847 N18.4 Hypertensive disorder 38 483319 I10 Type 2 lexx betes mellitus 82614225 E11.21 Coronary arteriosclerosis 11098063 I25.10 Mixed urin nasra incontinence 120513733 N39.46 Overactive urinary bladder 795093569 N32.81 -avoid anticholin ergics in this patient d/t potential patient harm. anticholin ergics interact with currently rx medication s and combo may incr. risk of LADLE LINER HELPER depression , psychomoto r impairment . Also pt is 72 years old, and anticholin ergics should be avoided d/t BEERS criteria.B eta 3 agonists are the safest alternativ e for this patient. -PFPT- unable to travel. she does not have a PFPT provider within a [address] from her home.-fail ed bladder training. failed myrbetriq- caused swelling in legs. Body mass index 25-29 - overweight 666384724 Z68.28 BMI 28.9 Overweight 243970382 E66 .3 [id number] Dylan Lebron APRN [facility] [address] [place] [address] 02/24/2024 10:32:52 02/24/2024 12:15:00 Type 2 diabetes mellitus 14782260 E11.21 labs Influenza vaccine needed 1846343433 106 Z23 Coronary arteriosclerosis 59430751 I25.10 follow up with cardiology as scheduled Hypercholesterolemia 136 16859 E78.00 labs Hypertensive disorder 38 031924 I10 labs Hypothyroidism 52112224 E03.9 labs Neuropathy 935478801 G62 .9 Pt compliant with plan of Alcides reviewed and appropriat emedicatio n compliance discussedC ontrol substance agreement on fileuds: Candidiasis of skin 4988 3006 B37.2 yogurt Long-term drug therapy 058909463 Z79.097 [id number] Dylan Lebron APRN [address] [address] 03/08/2024 14:13:34 03/08/2024 15:45:05 Type 2 diabetes mellitus 64838772 E11.21 needs the omnipod 5 that works with dexcom 7 so the pump can adjust based on cgm, high risk for hyperglyce sera Low back pain 533559030 M54.41 seen xray and talked with pt- due to broken hardware i have asked they only work with pt on her gait and balance and informed pt of xray results so she would understand . [id number] Margarita Banks APRN [facility] [address] [place] [address] 05/25/2024 11:21:29 05/25/2024 12:02:02 Recurrent urinary tract infection 821437411 N39.0 -continue estradiol VC. Hydronephrosis 79638264 N13.30 Chronic ki dney disease stage 4 393102426 N18.4 Hypertensive disorder 38 689140 I10 Type 2 lexx betes mellitus 76398280 E11.21 Coronary arteriosclerosis 47204604 I25.10 Mixed urin nasra incontinence 302407293 N39.46 Overactive urinary bladder 959628728 N32.81 -avoid anticholin ergics in this patient d/t potential patient harm. anticholin ergics interact with currently rx medication s and combo may incr. risk of LADLE LINER HELPER depression , psychomoto r impairment . Also pt is 72 years old, and anticholin ergics should be avoided d/t BEERS criteria.B eta 3 agonists are the safest alternativ e for this patient. -PFPT- unable to travel. she does not have a PFPT provider within a [address] from her home.-fail ed bladder training. failed myrbetriq- caused swelling in legs. Body mass index 25-29 - overweight 196341197 Z68.28 BMI 28.9 Overweight 460243351 E66 .3 [id number] Margarita Banks APRN [facility] [address] [place] [address] 08/24/2024 10:39:52 08/24/2024 11:30:09 Recurrent urinary tract infection 079044021 N39.0 -continue estradiol VC. Overactive urinary bladder 128359611 N32.81 -avoid anticholin ergics in this patient d/t potential patient harm. anticholin ergics interact with currently rx medication s and combo may incr. risk of LADLE LINER HELPER depression , psychomoto r impairment . Also pt is 72 years old, and anticholin ergics should be avoided d/t BEERS criteria.B eta 3 agonists are the safest alternativ e for this patient. -PFPT- unable to travel. she does not have a PFPT provider within a [address] from her home.-fail ed bladder training. failed myrbetriq- caused swelling in legs. Hydronephrosis 29454028 N13.30 Chronic ki dney disease stage 4 060069659 N18.4 Hypertensive disorder 38 369770 I10 Type 2 lexx betes mellitus 71362659 E11.21 Coronary arteriosclerosis 93262796 I25.10 Mixed urin nasra incontinence 122736959 N39.46 Body mass index 25-29 - overweight 266408333 Z68.28 BMI 28.9 Overweight 230065184 E66 .3 [id number] Dlyan Lebron APRN [address] [address] 2024 12:53:40 2024 14:27:55 Type 2 diabetes mellitus 95785372 E11.21 needs the omnipod 5 that works with dexcom 7 so the pump can adjust based on cgm, high risk for hyperglyce sera Hypertensive disorder 38 013067 I10 Hypercholesterolemia 136 95050 E78.00 Gastroesop hageal reflux disease 447949852 K21.9 Hypothyroidism 05472030 E03.9 Neuropathy 862772275 G62 .9 Pt compliant with plan of careDonald reviewed and appropriat emedicatio n compliance discussedC ontrol substance agreement on fileuds: Arthritis 0326316 M19.90 Coronary arteriosclerosis 97739604 I25.10 follow up with cardiology as scheduled Acute urin nasra tract infection 409364344 N39.0 increase fluidsurol ogy consultcx Abnormal g ait due to impairment of balance 413136016 R26.89 [id number] Dylan Lebron APRN [address] [address] 07/19/2024 10:50:07 07/19/2024 12:07:19 Acute urinary tract infection 422295659 N39.0 increase fluidsurol ogy consultcx Type 2 lexx betes mellitus 82627502 E11.21 needs the omnipod 5 that works with dexcom 7 so the pump can adjust based on cgm, high risk for hyperglyce miacarb to insulin ratio changed and target range adjusted. Vertigo 256561315 R42 [id number] Margarita Banks [facility] [address] [place] [address] 10/08/2024 13:08:12 10/08/2024 14:14:05 Recurrent urinary tract infection 652013374 N39.0 -continue estradiol VC. Overactive urinary bladder 209903055 N32.81 -avoid anticholin ergics in this patient d/t potential patient harm. anticholin ergics interact with currently rx medication s and combo may incr. risk of LADLE LINER HELPER depression , psychomoto r impairment . Also [...] d gemtesa- caused swelling in legs. Hydronephrosis 46526734 N13.30 Chronic ki dney disease stage 4 600613338 N18.4 Hypertensive disorder 38 951859 I10 Type 2 lexx betes mellitus 40002734 E11.21 Coronary arteriosclerosis 17250857 I25.10 Mixed urin nasra incontinence 966174452 N39.46 Body mass index 25-29 - overweight 986944871 Z68.28 BMI 28.9 Overweight 503158356 E66 .3 [id number] Dylan Ramirescarito[address] [address] 09/02/2024 13:48:04 09/02/2024 15:32:54 Neuropathy 023594645 G62.9 Pt compliant with plan of Alcides reviewed and appropriat emedicatio n compliance discussedC ontrol substance agreement on fileuds: Long-term drug therapy 424574200 Z79.899 Acute maxi llary sinusitis 31709723 J01.00 on cipro Cough 66798454 R05.9 meds [id number] [facility] [address] 09/27/2024 11:37:40 09/27/2024 12:12:41 Candidiasis of vagina 23438125 B37.31 take diflucan tab- only took one tabwait for cx results on urine and vaginal- before starting antibiotic s [id number] [facility] Biloxinando Ramireslaceytiffany[address] [address] 11/19/2024 10:13:18 11/19/2024 13:47:54 Adult health examination 119249099 Z00.00 Depression screening 171 786319 Z13.31 A depression screening was completed via a standardiz ed screening tool. 5 minutes were spent discussing depression screening results and risk factors. Examinatio n of blood pressure 531845001 Z01.30 Diet education 07598794 Z71.3 Counseling 185540180 Z71 .82 Exercise counseling . Patient encouraged to exercise 30 minutes 5 days a week. At [facility] ed risk for falls 203044143 Z91.81 STEADI FAST screening score of _12____. 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 7362415971 87091 E11.621 L97.529 follow up with podiatryan tibioticsb etadine soaked dressings change dressing daily Pain of le ft knee joint 5892861670 14953 M25.562 Impaired cognition 14043 6002 G31.84 Health Concerns Section Related Observation LastModified by Organization Detai ls LastModified Time None Recorded Concern Status LastModified by Organization Details LastModified Time None Recorded Advance Directives Directive N: Payers Insurance Date Sequence Insurance Name Policy Number Policy Elena Covered Member ID Elena Member ID Guarantor Name 11/16/2024 [employer] [place] [place] [facility] (MEDICARE) Jillian S Arthur [id number] Jillian Yesica 11/16/2024 1 [place] Jillian S Yesica [id number] Jillian Arthur 01/05/2022 1 [place] [employer] Jillian S Arthur [id number] Jillian Arthur 11/16/2024 2 FOR LIFE ( - MEDICARE SUPPLEMENT) [id number] Mariano Arthur [id number] Jillian Arthur 12/17/2021 2 FOR LIFE () Jillian Yesica [id number] Jillian Robert Notes Date Note Type Note Provider Name and Address Organization Details Recorded Time text/html Lower Urinary Tract Symptoms (LUTS)Reported bypatient.Location:[facility] Quality:worsening Severity:bothersome Onset/Timing:> 1 year [...] faecalis -mid december 2022- d/c summary from [facility] reports admit for left pyelo UCX grew klebsiella pneumoniae. -01/13/23- UCx negative.-01/13/23- creat 2.2, gfr 27. -01/13/23- CT abd pel w/o- per report- moderate hydronephrosis and hydroureter on the left, stable. moderate thickening of the bladder, likely d/t under distension. -01/14/23- d/c summary from [facility]- reviewed. admitted 01/13/23 for uti. ucx >100k [...] 30 07/19/24- UCX- Enterobacter cloacae (tx cipro) patient referred by dylan lebron, for ilya [...] sees nephrology at . seeing them q6mo. 08/25/23comes to followup on ilya and oab, ckd st 4, hydronephrosisusing premarin cream03/25 we started her on myrbetriq 25mg daily.Stopping taking Myrbetriq due to excessive swelling in her legs. 02/04/24 we started gemtesa. this has helped her OAB symptoms. she states she also stopped this because of swelling. we discussed this and she thinks it may be coincidental and is willing to try again. she is rx methenamine and vitaminC for ilya but hasnt been filled in a few months. she forgot to restart it after her fosfomycin Margarita Banks, [employer] [address], [place], [address], [place] [facility] 08/24/2024 11:28:22 5 text/html 74 year old female who presents to the office today for a follow up onneuropathy- needs a refill on gabapentin- works well for neuropathyhas concerns of cough and green/vasquez congestion x 1 weekpt doing well with her cgm and omnipod- contiune treatment- trying to get omnipod 5 covered to prevent hypoglycemia Dylan Lebron, [employer] [address], [place], [address], [place] [facility] 09/02/2024 15:40:57 5 text/html 74 year old female who presents to the office today with concerns ofyeast infection- she was prescribed fluconazole on 09-21-24 one tab, also used monistat 3 tubesstopped taking Gemtesa, she thought it might have caused yeast infection, states vaginal burning and itching, burning with urination Dylan Lebron, [employer]IST [address], [place], [address], [place] [facility] 09/27/2024 14:06:54 5 text/html Lower Urinary Tract Symptoms (LUTS)Reported bypatient.Location[facility] Quality:worsening Severity:bothersome Onset/Timing:> 1 year Duration:constant Context:has [...] faecalis -mid december 2022- d/c summary from [facility] reports admit for left pyelo UCX grew klebsiella pneumoniae. -01/13/23- UCx negative.-01/13/23- creat 2.2, gfr 27. -01/13/23- CT abd pel w/o- per report- moderate hydronephrosis and hydroureter on the left, stable. moderate thickening of the bladder, likely d/t under distension. -01/14/23- d/c summary from [facility]- reviewed. admitted 01/13/23 for uti. ucx >100k [...] forgot to restart it again Margarita Banks, [employer] [address], [place], [address], [place] [facility] 10/08/2024 14:12:25 OBGyn Episode No OBEpisode recorded.
--- NOTE | 2024-11-19 14:03 | PC.NURSE ---
RESPIRATORY NOTIFIED OF HOLTER MONITOR FOR 48 HOURS
[2024-11-19 14:11] LABS: Basophils # 0.1 K/mm3 (0-0.2); Basophils % 0.8 % (0.1-2.0); Eosinophils # 0.4 Kmm3 (0.0-0.4); Eosinophils % 4.3 % (0.1-12.0); Hematocrit 39.5 % (37.0-47.0); Hemoglobin 12.8 g/dL (12.2-16.2); Immature Granulocytes # 0.06 10^3uL; Immature Granulocytes % 0.6 %; Lymphocytes # 2.5 K/mm3 (0.7-4.5); Lymphocytes % 25.2 % (10-50); Mean Corpuscular HGB Conc 32.4 g/dL (31.8-35.4); Mean Corpuscular Volume 89.6 fl (81-99); Monocytes # 0.9 K/mm3 (0.1-1.0); Monocytes % 9.3 % (1.7-9.3); Neutrophils # 5.9 K/mm3 (1.8-7.8); Neutrophils % 59.8 % (37.0-80.0); Nucleated Red Blood Cells # 0 10^3/uL; Nucleated Red Blood Cells % 0 %; Platelet Count 217 K/mm3 (142-424); Red Blood Count 4.41 M/mm3 (4.20-5.40); Red Cell Distribution Width 16.4 % (11.5-17.5); Red Cell Distribution Width-SD 54.3 fL; White Blood Count 9.9 K/mm3 (4.8-10.8)
--- NOTE | 2024-11-19 14:11 | HMH.EDGENADL ---
Discharge Plan Disposition Patient Disposition: Home, Self-Care Condition: Good Prescriptions Prescriptions: No Action rosuvastatin 40 mg tablet 40 mg PO DAILY insulin lispro 100 unit/mL cartridge 1 sliding scale dose SQ AC Rx Instructions: pt states she programs her pump based on the number of carbs she eats Please provide 12 vials, patient is running out c 9 vials due to glucose running high. allopurinol 100 MG tablet 100 mg PO DAILY venlafaxine 75 mg capsule,extended release 24hr 75 mg PO DAILY gabapentin 600 mg tablet 600 mg PO BID levothyroxine [Synthroid] 112 mcg tablet 112 mcg PO DAILY carvedilol 25 mg tablet 25 mg PO BID omeprazole 40 mg capsule,delayed release(DR/EC) 40 mg PO DAILY icosapent ethyl 1 gram capsule 2 g PO BID Referrals Follow up/Referrals: Roman King APRN [Primary Care Provider, Medical] - See instructions Activity Restrictions/Add. Instructions Additional Instructions/Restrictions: Call to make an appointment with [facility] vascular surgery in order to be evaluated for carotid endarterectomies (cleaning out arteries going from your heart to your head) - [address], [address], room L[address] [place] [address] - Phone number [phone] Also follow-up with cardiology regarding heart monitor and have them read it to make sure that you do not have any arrhythmias. If you have any other symptoms similar to this, be sure to write down the time it happened so they will be able to interrogate the Holter monitor to figure out what may be going on. Clinical Impressions Clinical Impression: Syncope and collapse Instructions Patient Instructions: DI for Syncope in Adults (Fainting), DI for Syncope in Children (Fainting) Print Language Print Language: Surinamese Discharge ED Provider: Salas Bazzi General Adult HPI <Tomas Pierce MD - Last Filed: 11/19/24 14:48> General Chief complaint: Syncope Stated complaint: weakness Time Seen by Provider: 11/19/24 13:45 Mode of Arrival: EMS Source of Information: Patient and EMS Description of Symptoms (Recalled from ER Triage Doc. by RN): PT BROUGHT VIA EMS FOR SYNCOPAL EPISODE AT PCP OFFICE WHILE THERE FOR A ROUTINE OFFICE VISIT. PT STATES SHE ABOUT TO GET BLOOD DRAWN AND PASSED OUT IV STARTED AND IVF'S GIVEN AT PCP OFFICE. PT WOKE WITH RIGHT SIDED WEAKNESS, NOW RESOLVED PRIOR TO EMS ARRIVAL. PT ALERT AND ORIENTED UPON ARRIVAL, NO DEFICITS NOTED History of Present Illness HPI narrative: Please note that above description of symptoms, in this electronic medical record under categorization of recalled from ER triage doctor by RN are reflective of an initial nursing assessment, however, is not reflective of my full history and physical exam that was personally taken and clarified. Consequentially, this preceding description of symptoms, which may include the patient's categorized chief complaint in the EMR, do not reflect my personal clinical impression, and the ultimate description of history of present illness and patient stated complaints should be deferred to this section of the note. Unless stated otherwise or congruent with this section of the note, additional signs, symptoms, or incongruence should be interpreted as inaccurate with my clinical impression. Related Data Home Medications ?Medication ?Instructions ?Recorded ?Confirmed allopurinol 100 mg tablet 100 mg PO DAILY Gout 04/27/18 12/10/23 rosuvastatin 40 mg tablet 40 mg PO DAILY High cholesterol 06/30/20 12/10/23 insulin lispro 100 unit/mL 1 sliding scale dose SQ AC Diabetes 02/12/22 12/10/23 subcutaneous cartridge gabapentin 600 mg tablet 600 mg PO BID Nerve pain 11/19/22 12/10/23 levothyroxine 112 mcg tablet 112 mcg PO DAILY Thyroid 11/19/22 12/10/23 (Synthroid) venlafaxine 75 mg capsule,extended 75 mg PO DAILY Mood 11/19/22 12/10/23 release 24 hr carvedilol 25 mg tablet 25 mg PO BID High blood pressure 11/20/22 12/10/23 icosapent ethyl 1 gram capsule 2 g PO BID High cholesterol 11/20/22 12/10/23 omeprazole 40 mg capsule,delayed 40 mg PO DAILY Acid reflux 11/20/22 12/10/23 release Allergies Allergy/AdvReac Type Severity Reaction Status Date / Time lisinopril (LISINOPRIL) Allergy Severe S-SWELLS-OR Verified 12/10/23 11:03 AL/THROAT nitrofurantoin Allergy Intermediate I-HIVES Verified 12/10/23 11:03 (NITROFURANTOIN) codeine (CODEINE) Allergy Unknown NA-NAUSEA/V Verified 12/10/23 11:03 OMITING acetaminophen (From Percocet) AdvReac Severe Hallucinati Verified 12/10/23 11:03 ng oxycodone (From Percocet) AdvReac Severe Hallucinati Verified 12/10/23 11:03 ng cephalexin (From Keflex) AdvReac Verified 12/10/23 11:03 PFSH <Tomas Pierce MD - Last Filed: 11/19/24 14:48> [facility] Disclaimer: The information contained in this section may have been updated after the patient was seen, as this information can be updated by other users. Medical History CAD (coronary artery disease) Pyelonephritis of left kidney Physical deconditioning Hydronephrosis, left Type 2 diabetes mellitus with hyperglycemia IDDM (insulin dependent diabetes mellitus) Fusion of lumbar spine Surgical History S/P right rotator cuff repair Hx of cholecystectomy History of tonsillectomy History of appendectomy History of Status post cardiac surgery Family History Other Cancer Coronary artery disease Diabetes Heart attack Hypertension Kidney disease Thyroid disorder Social History Smoking Status: Never smoker alcohol intake: never substance use type: denies use current occupational status: retired Travel in the last 8 weeks?: None household members: spouse housing: house lives independently: No marital status: number of children: 1 number of grandchildren: 1 caffeine: Yes Have you lived/traveled outside [place] in past 30 days?: No Contact w/someone who lives/traveled outside US past 30 days?: No Exposure to someone with infectious disease in past 14 days?: No Do you have a fever (greater than 100.4 F or 38 C)?: No Have you tested positive for COVID-19?: No Exposed to someone with COVID-19 in past 14 days?: No Do you have a sore throat?: No Do you have a cough?: No Do you have any weakness?: Yes Do you have any diarrhea?: No Are you experiencing any unusual bleeding?: No Do you have any muscle aches/pain?: No Do you have any abdominal pain?: No Are you experiencing loss of taste or smell?: No Other Medical History Have you received the Flu Vaccine for this season: No Have you received the Pneumonia Vaccine: No <Tomas Pierce MD - Last Filed: 11/19/24 14:48> ROS Obtained: Yes All systems reviewed & no additional complaints except as documented Physical Exam <Tomas Pierce MD - Last Filed: 11/19/24 14:48> General General appearance: alert and in no apparent distress Head Head exam: atraumatic and normocephalic Eye Eye exam: Present normal appearance, PERRL and EOMI Neck Neck exam: Present normal inspection, full ROM and trachea midline Respiratory Respiratory exam: Absent respiratory distress, wheezes, stridor, accessory muscle use or prolonged expiratory phase Cardiovascular Cardiovascular exam: Present regular rate, normal rhythm and other (Pulses equal symmetric in upper and lower extremities) Abdominal Exam Abdominal exam: Present soft; Absent distention, tenderness or pulsatile mass Extremities Exam Extremities exam: Present normal inspection; Absent edema Neurological Exam Neurological exam: Present alert, oriented X3, CN II-XII intact and normal gait; Absent motor sensory deficit Skin Skin exam: Present warm and dry; Absent diaphoresis or erythema Medical Decision Making <Tomas Pierce MD - Last Filed: 11/19/24 14:48> Medical Records Medical records reviewed: Yes I reviewed the patient's medical records. Screening: Per USPSTF and CDC recommendations, given the prevalence of disease in our region, it is our hospital?s policy to screen for HIV and viral Hepatitis for all patients aged 18 and over and those with ongoing risk factors. Donald Inquiry Pt receiving controlled substance: No Donald was queried for this patient: No Vital Signs: 11/19/24 13:45 11/19/24 14:00 11/19/24 14:15 Temperature 97.9 F Temperature Source Oral Pulse Rate 74 72 Pulse Rate [Apical] 82 Respiratory Rate 16 Blood Pressure 190/85 H 170/76 H Blood Pressure [Right Arm] 171/78 H Blood Pressure Mean [Right Arm] 109 Blood Pressure Source Blood Pressure Source [Right Arm] Automatic Cuff Blood Pressure Position Blood Pressure Position [Right Arm] Sitting 02 Sat by Pulse Oximetry 95 95 99 Oxygen Delivery Method Room Air Room Air Room Air 11/19/24 14:30 11/19/24 15:00 11/19/24 15:30 Temperature Temperature Source Pulse Rate 71 81 84 Pulse Rate [Apical] Respiratory Rate Blood Pressure 189/79 H 189/99 H 196/99 H Blood Pressure [Right Arm] Blood Pressure Mean [Right Arm] Blood Pressure Source Blood Pressure Source [Right Arm] Blood Pressure Position Blood Pressure Position [Right Arm] 02 Sat by Pulse Oximetry 95 94 L 94 L Oxygen Delivery Method Room Air Room Air 11/19/24 16:01 11/19/24 17:53 Temperature 98.8 F Temperature Source Oral Pulse Rate 75 74 Pulse Rate [Apical] Respiratory Rate 18 Blood Pressure 176/92 H 180/74 H Blood Pressure [Right Arm] Blood Pressure Mean [Right Arm] Blood Pressure Source Automatic Cuff Blood Pressure Source [Right Arm] Blood Pressure Position Supine Blood Pressure Position [Right Arm] 02 Sat by Pulse Oximetry 93 L Oxygen Delivery Method Room Air Lab Data Lab Results 11/19/24 13:49: WBC 9.9, RBC 4.41, Hgb 12.8, Hct 39.5, MCV 89.6, MCH 29.0, MCHC 32.4, RDW 16.4, Plt Count 217, MPV 11.0 H, Neut % (Auto) 59.8, Lymph % (Auto) 25.2, [place] % (Auto) 9.3, Eos % (Auto) 4.3, Baso % (Auto) 0.8, Neut # (Auto) 5.9, Lymph # (Auto) 2.5, [place] # (Auto) 0.9, Eos # (Auto) 0.4, Baso # (Auto) 0.1, Sodium 137, Potassium 4.0, Chloride 105, Carbon Dioxide 29, Anion Gap 7.0, BUN 40 H, Creatinine 1.90 H, Estimated Creat Clear 26, Estimated GFR 26 L, Est GFR ( Amer) 31 L, Glucose 121 H, Calcium 8.8, Total Bilirubin 0.4, AST 30, ALT 22, Alkaline Phosphatase 77, Troponin I < 0.01, Total Protein 6.9, Albumin 3.7, Globulin 3.2, Albumin/Globulin Ratio 1.2, HCV Ab BETTY w/Rflx PCR Qn Negative, HIV Ag/Ab Combo Qual Negative 11/19/24 14:03: VBG pH 7.29 L, VBG pCO2 56.0 H, VBG pO2 42.6 H, VBG HCO3 26.4, VBG Total CO2 28.2 H, VBG O2 Saturation 72.7 H, VBG Base Excess -0.1, VBG Lactic Acid 1.7 11/19/24 16:50: Troponin I < 0.01 11/19/24 13:49 11/19/24 13:49 Orders (Tests/Meds): ORDERS Category Date Time Status CBC w/Auto Diff [Complete Blood Count Auto Diff] Stat Lab 11/19/24 13:49 Completed CMP [Comprehensive Metabolic Panel] Stat Lab 11/19/24 13:49 Completed HIV Combo Stat Lab 11/19/24 13:49 Completed Hepatitis C Ab Qual. W/ RFX Stat Lab 11/19/24 13:49 Completed Trop I [Troponin I] Stat Lab 11/19/24 13:49 Completed Troponin I Q3H Lab 11/19/24 16:50 Completed VBG [Venous Blood Gas] Stat RT 11/19/24 14:03 Completed ECG holter initial pfn Stat Y 11/19/24 14:03 Completed Medical Decision Narrative: 74-year-old female history of hypertension, hyperlipidemia, CKD, chronic UTIs, head and neck vascular stenosis presenting with syncope. She was at her primary doctor's office when she was getting ready to have blood drawn. Patient states she felt lightheaded, dizzy. The next thing she remembers is waking up, feeling sluggish, hearing voices, but largely unable to respond. in the room also providing history. States that she passed out and was unconscious for over 30 minutes, slowly responded, did urinate on herself. Patient denies biting her tongue or any other acute changes. I talked to patient's primary care provider who corroborates this history. Patient got a liter of fluids in the office and was sent to the emergency department. On arrival, patient states she is ready to go home. No seizure history, sugar just above 100 and normal for her. Denies chest pain, nausea, vomiting, fevers, chills, recent illness, any other acute complaints or recent complaints. Had similar episode to this in the past, worked up extensively, came back negative. History was obtained via conversation with patient. On arrival, patient hemodynamically stable, alert, [oriented x4, ][appropriate, ]GCS [15], moving all extremities spontaneously, pupils equal and reactive to light. Full physical exam performed and significant for NIHSS 0, neurologically intact and at her baseline. Lungs are clear, cardiac exam without murmurs gallops or rubs. Mentating appropriately,. Differential includes vasovagal syncope, orthostatic syncope, cardiac syncope, neurogenic syncope, metabolic abnormality, endocrinologic normality diabetic emergency, CVA versus TIA, among others. Patient placed on continuous cardiac monitoring and continuous pulse ox with initial blood pressure 171/78, heart rate 82, saturation 95% on room air. [Independent interpretation of EKG shows] sinus rhythm with no acute ischemic change. Normal axis and normal intervals. Patient was given IV fluids at the physician's office for symptomatic management[ and correction of underlying abnormalities]. No further interventions here as she is asymptomatic. Workup independently interpreted and significant for nonactionable CBC. Chemistry with stable CKD with no acute changes. VBG with overall nonactionable findings, but mild respiratory acidosis including pH 7.3, CO2 only mildly elevated at 56, bicarb normal and lactate normal. Initial troponin negative. Patient was placed in observation beginning at 245 in order to rule out evolving RI with delta troponins and determine need for admission versus home-going. The patient was provided serial exams, cardiac monitoring while awaiting results. Prior to delta troponin and disposition, care handed off to oncoming physician. [employer] disclaimer Much of this encounter note is an electronic weatherization and housing inspector spoken language to printed text. Electronic weatherization and housing inspector of the spoken language may permit errors. Although I have reviewed the note, some errors may still exist. <Salas Bazzi MD - Last Filed: 11/19/24 23:01> Vital Signs: 11/19/24 13:45 11/19/24 14:00 11/19/24 14:15 Temperature 97.9 F Temperature Source Oral Pulse Rate 74 72 Pulse Rate [Apical] 82 Respiratory Rate 16 Blood Pressure 190/85 H 170/76 H Blood Pressure [Right Arm] 171/78 H Blood Pressure Mean [Right Arm] 109 Blood Pressure Source Blood Pressure Source [Right Arm] Automatic Cuff Blood Pressure Position Blood Pressure Position [Right Arm] Sitting 02 Sat by Pulse Oximetry 95 95 99 Oxygen Delivery Method Room Air Room Air Room Air 11/19/24 14:30 11/19/24 15:00 11/19/24 15:30 Temperature Temperature Source Pulse Rate 71 81 84 Pulse Rate [Apical] Respiratory Rate Blood Pressure 189/79 H 189/99 H 196/99 H Blood Pressure [Right Arm] Blood Pressure Mean [Right Arm] Blood Pressure Source Blood Pressure Source [Right Arm] Blood Pressure Position Blood Pressure Position [Right Arm] 02 Sat by Pulse Oximetry 95 94 L 94 L Oxygen Delivery Method Room Air Room Air 11/19/24 16:01 11/19/24 17:53 Temperature 98.8 F Temperature Source Oral Pulse Rate 75 74 Pulse Rate [Apical] Respiratory Rate 18 Blood Pressure 176/92 H 180/74 H Blood Pressure [Right Arm] Blood Pressure Mean [Right Arm] Blood Pressure Source Automatic Cuff Blood Pressure Source [Right Arm] Blood Pressure Position Supine Blood Pressure Position [Right Arm] 02 Sat by Pulse Oximetry 93 L Oxygen Delivery Method Room Air Lab Data Lab Results 11/19/24 13:49: WBC 9.9, RBC 4.41, Hgb 12.8, Hct 39.5, MCV 89.6, MCH 29.0, MCHC 32.4, RDW 16.4, Plt Count 217, MPV 11.0 H, Neut % (Auto) 59.8, Lymph % (Auto) 25.2, [place] % (Auto) 9.3, Eos % (Auto) 4.3, Baso % (Auto) 0.8, Neut # (Auto) 5.9, Lymph # (Auto) 2.5, [place] # (Auto) 0.9, Eos # (Auto) 0.4, Baso # (Auto) 0.1, Sodium 137, Potassium 4.0, Chloride 105, Carbon Dioxide 29, Anion Gap 7.0, BUN 40 H, Creatinine 1.90 H, Estimated Creat Clear 26, Estimated GFR 26 L, Est GFR ( Amer) 31 L, Glucose 121 H, Calcium 8.8, Total Bilirubin 0.4, AST 30, ALT 22, Alkaline Phosphatase 77, Troponin I < 0.01, Total Protein 6.9, Albumin 3.7, Globulin 3.2, Albumin/Globulin Ratio 1.2, HCV Ab BETTY w/Rflx PCR Qn Negative, HIV Ag/Ab Combo Qual Negative 11/19/24 14:03: VBG pH 7.29 L, VBG pCO2 56.0 H, VBG pO2 42.6 H, VBG HCO3 26.4, VBG Total CO2 28.2 H, VBG O2 Saturation 72.7 H, VBG Base Excess -0.1, VBG Lactic Acid 1.7 11/19/24 16:50: Troponin I < 0.01 Orders (Tests/Meds): ORDERS Category Date Time Status CBC w/Auto Diff [Complete Blood Count Auto Diff] Stat Lab 11/19/24 13:49 Completed CMP [Comprehensive Metabolic Panel] Stat Lab 11/19/24 13:49 Completed HIV Combo Stat Lab 11/19/24 13:49 Completed Hepatitis C Ab Qual. W/ RFX Stat Lab 11/19/24 13:49 Completed Trop I [Troponin I] Stat Lab 11/19/24 13:49 Completed Troponin I Q3H Lab 11/19/24 16:50 Completed VBG [Venous Blood Gas] Stat RT 11/19/24 14:03 Completed ECG holter initial pfn Stat Y 11/19/24 14:03 Completed Medical Decision Narrative: 74-year-old female history of hypertension, hyperlipidemia, CKD, chronic UTIs, head and neck vascular stenosis presenting with syncope. She was at her primary doctor's office when she was getting ready to have blood drawn. Patient states she felt lightheaded, dizzy. The next thing she remembers is waking up, feeling sluggish, hearing voices, but largely unable to respond. in the room also providing history. States that she passed out and was unconscious for over 30 minutes, slowly responded, did urinate on herself. Patient denies biting her tongue or any other acute changes. I talked to patient's primary care provider who corroborates this history. Patient got a liter of fluids in the office and was sent to the emergency department. On arrival, patient states she is ready to go home. No seizure history, sugar just above 100 and normal for her. Denies chest pain, nausea, vomiting, fevers, chills, recent illness, any other acute complaints or recent complaints. Had similar episode to this in the past, worked up extensively, came back negative. History was obtained via conversation with patient. On arrival, patient hemodynamically stable, alert, [oriented x4, ][appropriate, ]GCS [15], moving all extremities spontaneously, pupils equal and reactive to light. Full physical exam performed and significant for NIHSS 0, neurologically intact and at her baseline. Lungs are clear, cardiac exam without murmurs gallops or rubs. Mentating appropriately,. Differential includes vasovagal syncope, orthostatic syncope, cardiac syncope, neurogenic syncope, metabolic abnormality, endocrinologic normality diabetic emergency, CVA versus TIA, among others. Patient placed on continuous cardiac monitoring and continuous pulse ox with initial blood pressure 171/78, heart rate 82, saturation 95% on room air. [Independent interpretation of EKG shows] sinus rhythm with no acute ischemic change. Normal axis and normal intervals. Patient was given IV fluids at the physician's office for symptomatic management[ and correction of underlying abnormalities]. No further interventions here as she is asymptomatic. Workup independently interpreted and significant for nonactionable CBC. Chemistry with stable CKD with no acute changes. VBG with overall nonactionable findings, but mild respiratory acidosis including pH 7.3, CO2 only mildly elevated at 56, bicarb normal and lactate normal. Initial troponin negative. Patient was placed in observation beginning at 245 in order to rule out evolving RI with delta troponins and determine need for admission versus home-going. The patient was provided serial exams, cardiac monitoring while awaiting results. Prior to delta troponin and disposition, care handed off to oncoming physician. [employer] disclaimer Much of this encounter note is an electronic weatherization and housing inspector spoken language to printed text. Electronic weatherization and housing inspector of the spoken language may permit errors. Although I have reviewed the note, some errors may still exist. Salas Bazzi MD JULIA: I assumed care of this patient from the previous emergency medicine physician. Second troponin is undetectable low. Patient is asymptomatic at this time. She is stable for discharge at this time. Return precautions given. Critical Care <Tomas Pierce MD - Last Filed: 11/19/24 14:48> Critical Care Time Critical Care Time: No
[2024-11-19 14:14] LABS: Lactate Venous 1.7 mmol/L (0.4-2.0); VBG Base Excess -0.1 mmol/L (-2.4-2.3); VBG HCO3 26.4 mmol/L (23-30); VBG Oxygen Saturation 72.7 % (50-70); VBG PH 7.29 mmol/L (7.31-7.41); VBG PO2 42.6 mmol/L (28-40); VBG Total CO2 28.2 mmol/L (23-27)
[2024-11-19 14:24] LABS: Alanine Aminotransferase 22 U/L (12-78); Albumin Level 3.7 g/dl (3.5-5.0); Albumin/Globulin Ratio 1.2 (1.1-1.8); Alkaline Phosphatase 77 U/L (38-126); Aspartate Amino Transferase 30 U/L (14-36); Bilirubin,Total 0.4 mg/dl (0.2-1.3); Blood Urea Nitrogen 40 mg/dl (7-17); Calcium 8.8 mg/dl (8.4-10.2); Carbon Dioxide 29 mmol/L (22.0-30.0); Chloride 105 mmol/L (98-107); Creatinine Clearance Estimated 26 mL/min (50-200); Estimated Glomerular Filt Rate 26 ml/min (>60); GFR (African American) 31 ML/MIN (>60); Globulin 3.2 g/dL (1.3-3.2); Glucose 121 mg/dl (74-100); Sodium 137 mmol/L (136-145); Total Protein,Serum 6.9 g/dl (6.3-8.2)
[2024-11-19 14:28] LABS: Troponin I < 0.01 ng/ml (0.00-0.034)
--- NOTE | 2024-11-19 16:06 | PC.NURSE ---
pt ambulated to restroom with assistance; no complications
[2024-11-19 16:15] LABS: HIV Combo NEGATIVE (Negative)
[2024-11-19 16:23] LABS: Hepatitis C Ab Qual. W/ RFX NEGATIVE (Negative)
[2024-11-19 17:40] LABS: Troponin I < 0.01 ng/ml (0.00-0.034)
== END 2024-11-19 18:04 | disposition home or self-care (01) ==
PROVIDERS: Emergency Medicine; Emergency Provider Emergency Medicine; PCP Nurse Practitioner Family
DX: R55 Syncope and collapse (principal); R53.1 Weakness; I10 Essential (primary) hypertension; E78.5 Hyperlipidemia, unspecified; E11.40 Type 2 diabetes mellitus with diabetic neuropathy, unspecified; K21.9 Gastro-esophageal reflux disease without esophagitis; E03.9 Hypothyroidism, unspecified; G89.29 Other chronic pain
CPT/HCPCS: 80053; 80074; 82803; 84484; 85025; 87389; 93005; 93225; 93227; 99285

== ENCOUNTER 2024-11-22 10:03 | Outpatient (CLI) | payer MEDICARE, OTHER, SELFPAY ==
--- NOTE | 2024-11-22 10:06 | XR_ITS ---
FINAL REPORT CLINICAL HISTORY: TYPE 2 DIABETES, UNSPECIFIED ULCER STAGE 1st digit left foot ulcer COMPARISON: None FINDINGS: LEFT FOOT Three views of the left foot demonstrate no acute fracture or dislocation. No bony erosions or periosteal reaction is noted. There is a small defect in the lateral base of the first proximal phalanx, measuring 4 mm in size, likely chronic. There is a density adjacent to the base of the fifth metatarsal, measuring 3 mm in size, that may be secondary to remote trauma. A tiny accessory navicular is present. There is a 6 mm density dorsal to the talonavicular joint, that also appears remote and well-corticated. The visualized joint spaces are normally aligned. The soft tissues are unremarkable. IMPRESSION: No acute bony abnormality, specifically no bony erosions or periosteal reaction is present. Reviewed, Interpreted and Dictated by Sae Mai MD Transcribed by Ashley Prado Authenticated and [facility]
--- OUTSIDE RECORDS SUMMARY | 2024-11-22 10:12 | XMS_ITS | Continuity of Care Document ---
[facility] Organization [facility] Address [address] [place] [address] Care Team Providers Care Trans Router Name Role Phone DYLAN KING Primary Care Provider MAKENZIE Dahl E Mail System Administrator [phone] STEPH BLAS Textile Machine Maintenance Mechanic DENIS RAMIREZ Stucco Laborer Assessment No assessment recorded. Plan of Treatment Reminders Order Date Submit Date Provider Last Modified By Organization Details Last Modified Time Details Appointments Follow Up 20 2024 01:00P M Margarita Banks, WATCHMAKER APPRENTICE Not available Not available Not available Lab vaginal pathogens panel, ERNESTINA+probe , vaginal fluid 2024 025 [facility], [address], [address], [place], [address], 09/30/2024 01:06:56 urinalysi s, dipstick 2024 025 [facility], [address] [place] [address], [address], 09/27/2024 14:06:26 culture, urine 2024 025 RABIA [facility], [address], [address], [place], [address], 09/30/2024 01:06:56 Referral None recorded. Procedures None recorded. Surgeries None recorded. Imaging None recorded. Medication Orders None recorded. Patient TargetsNo targets recorded. Patient InstructionsNo instructions recorded. Reason for Referral None Reported. Results Created Date Observation Date Name Description Value Unit Range Abnormal Flag Note LastModifiedBy Organization Detail LastModifiedTime 09/28/19 25 09/27/2024 urina lysis , dipst ick Leukocytes Small Not Available [address], [address], 09/27/2024 11:53:59 09/28/19 25 09/27/2024 urina lysis , dipst ick Nitrite negati ve Not Available [address], [address], 09/27/2024 11:53:59 09/28/19 25 09/27/2024 urina lysis , dipst ick Urobilinogen .2 Not Available Saad [address], [address], 09/27/2024 11:53:59 09/28/19 25 09/27/2024 urina lysis , dipst ick Protein 300 Not Available [address], [address], 09/27/2024 11:53:59 09/28/19 25 09/27/2024 urina lysis , dipst ick pH 5.5 Not Available [address], [address], 09/27/2024 11:53:59 09/28/19 25 09/27/2024 urina lysis , dipst ick Blood Non-He molyze d: Trace Not Available [address], [address], 09/27/2024 11:53:59 09/28/19 25 09/27/2024 urina lysis , dipst ick Specific [place] 1.030 Not Available [address] [place], [address], 09/27/2024 11:53:59 09/28/19 25 09/27/2024 urina lysis , dipst ick Ketone Negati ve Not Available [address], [address], 09/27/2024 11:53:59 09/28/19 25 09/27/2024 urina lysis , dipst ick Bilirubin Negati ve Not Available [address], [address], 09/27/2024 11:53:59 09/28/19 25 09/27/2024 urina lysis , dipst ick Glucose Negati ve Not Available [address], [address], 09/27/2024 11:53:59 09/28/19 25 09/27/2024 urina lysis , dipst ick Appearance Clear Not Available [address], [address], 09/27/2024 11:53:59 09/28/19 25 09/27/2024 urina lysis , dipst ick Color Yellow Not Available [address], [address], 09/27/2024 11:53:59 11/20/19 25 11/19/2024 elect rocar diogr am No observ ation record ed. keya [address], [address], 11/19/2024 16:58:35 11/20/19 25 11/19/2024 elect rocar diogr am No observ ation record ed. [email or web address] [facility] [address], [place], [address], 11/22/2024 09:08:29 Result Notes None recorded. Problems Name Problem SNOMED Code Status Onset Date Resolution Date Notes Provider Name and Address Organization Details Recorded Time Type 2 diabetes mellitus 59712582 Active 2021 Dylan King, WATCHMAKER APPRENTICE [address], [place], [address], [place] - [facility] 2 10:07:29 Hypertensive disorder 20805553 Active 2021 Dylan King, WATCHMAKER APPRENTICE [address], [place], [address], [place] [facility] 2 10:07:09 Hypercholester olemia 27395733 Active 2021 Dylan King, WATCHMAKER APPRENTICE [address], [place], [address], [place] [facility] 2 10:07:05 Gastroesophage al reflux disease 687780584 Active 2021 Dylan King, WATCHMAKER APPRENTICE [address], [place], [address], [place] [facility] 2 10:06:49 Hypothyroidism 05241579 Active 2021 Dylan King, WATCHMAKER APPRENTICE [address], [place], [address], [place] [facility] 2 10:07:12 Neuropathy 981053847 Active 2021 Dylan King, WATCHMAKER APPRENTICE [address], [place], [address], [place] [facility] 2 10:07:19 Arthritis 0262528 Active 2021 Dylan King, WATCHMAKER APPRENTICE [address], [place], [address], [place] [facility] 2 10:06:47 Coronary arterioscleros is 17799357 Active 2021 Dylan King, WATCHMAKER APPRENTICE [address], [place], [address], [place] [facility] 2 10:18:21 Coronary artery bypass grafts x 3 Active 2021 Dylan King, WATCHMAKER APPRENTICE [address], [place], [address], [place] - [facility] 10:18:34 Problem Notes None recorded. Procedures Surgical History Date Name Laterality Status Provider Name and Address Organization Details Recorded Time 025 Advance Care Planning completed Fina Vasquez [place] - [facility] 11/19/2024 10:41:02 025 IV Infusion completed Fina Vasquez [place] [facility] 11/19/2024 15:44:19 025 Functional Status Assessed completed Finaradha Vasquez [place] - [facility] 11/19/2024 10:41:02 024 Date of Last Colonoscopy completed Dianando Youssef [place] - [facility] 2024 13:27:50 024 Medication Reconcilliation completed Finaradha Vasquez [place] - [facility] 12/02/2023 10:36:18 023 In and Out Catheterization completed Margarita Banks, WATCHMAKER APPRENTICE [address], [place], [address], [place] - [facility] 02/13/2023 14:34:26 023 Medication Reconcilliation completed Fina Vasquez [place] - [facility] 01/31/2023 10:55:15 023 Medication Reconcilliation completed Fina Vasquez [place] - [facility] 01/06/2023 10:21:27 023 Medication Reconcilliation completed Fina Vasquez [place] - [facility] 12/12/2022 10:55:58 023 Medication Reconcilliation completed Fina Vasquez [place] - [facility] 11/25/2022 14:44:11 023 Date of Last Mammogram completed Dia Calis [place] - [facility] 10/17/2022 13:02:19 023 Most [...] Name and Address Organization Details Recorded Time 804586 lisinopri l medicatio n rash Not available high 12/17/2021 46713 RxNorm Fina Vasquez null, [place] - [facility] 2 10:17:08 412012 Oxycontin medicatio n hallucina tions moderate high 12/17/2021 44959 6 RxNorm Fina Vas[place] - [facility] 2 10:18:04 678554 codeine medicatio n rash moderate high 12/17/2021 2670 RxNorm Fina Vasquez null, [place] - [facility] 2 10:16:43 381836 acetamino phen / oxycodone medicatio n hallucina tions severe high 12/17/2021 26970 3 RxNorm Fina Vasquez [place] - [facility] 2 10:17:43 896944 cephalexi n medicatio n eye swelling Not available low 11/11/2022 2231 RxNorm Fina Vasquez null, [place] - [facility] 3 12:54:33 707161 Macrobid medicatio n diarrhea moderate high 01/13/2023 93053 1 RxNorm vomit ing and diarr hea [...] Not Available Not Available Not Avai lable Normal Saline Flush 0.9 % injection syringe Take 20 mL by injectio n route. 2024 active Not Available Not Available [...] Not Available Not Available No t Available sodium chloride 0.9 % intraveno us solution Inject 1000 mL by intraven ous route. 2024 active Not Available Not Available Not Avai lable ergocalci ferol (vitamin D2) 1,250 mcg (50,000 [...] Not Available Not Available Not Available [facility] 3 mL 08/22 completed Not Available Not [...] Updated DateTime 5 151.13 cm 28.4 kg/m2 77558.7 1 g 18 /min 92 % 92 [...] Or The Highest Degree You Have Received? OC11060-2 Information not available 12/17/2021 Have There Been Any Changes To Your Family Or Social Situation? No Information no t available 07/14/2023 What Is The Fluoride Status Of Your Home? Unknown Information not available 07/14/2023 Have You Recently Or Are You Planning To Travel To An Area With Zika Virus? No Information not available 07/14/2023 Do You Have A Medical Power Of Planning And Analysis Manager? No Information not available 07/14/2023 What Was [...] anxious, or unable to sleep at night)? [id number] Information not available 12/20/2021 Do you have [...] high-dose, quadrivalent, PF 02/21/2022 completed Dylan King, GAMA [address], [place], [address], [place] [facility] 03/26/2022 17:30:58 Influenza, high-dose, quadrivalent, PF 04/25/2023 completed Fina Vasquez [facility], [place] - [facility] 04/25/2023 13:24:26 Influenza, high-dose, [...] mcg/0.25mL dose 04/11/2021 completed F[place] [facility] 08/22/2022 14:19:25 Tdap 04/20/2013 completed Fina [place] [facility] 08/22/2022 14:19:25 zoster live 04/20/2013 completed Fina [place] [facility] 08/22/2022 14:19:25 Influenza, high-dose, trivalent, PF 05/16/2021 completed Fina [place] [facility] 08/22/2022 14:19:25 Past Encounters Encounter ID Performer Location Encounter Start Date Encounter Closed Date Diagnosis/Indication Diagnosis SNOMED-CT Code Diagnosis ICD10 Code Diagnosis Note [id number] Dylan King APRN [address] [address] 09/02/2024 13:48:04 09/02/2024 15:32:54 Neuropathy 951080645 G62.9 Pt compliant with plan of careDiaspmegha reviewed and appropriat emedicatio n compliance discussedC ontrol substance agreement on fileuds: Long-term drug therapy 238576755 Z79.899 Acute maxi llary sinusitis 24515928 J01.00 on cipro Cough 67765471 R05.9 meds [id number] Dylan King APRN [facility] [address] [place] [address] 09/27/2024 11:37:40 09/27/2024 12:12:41 Candidiasis of vagina 45861220 B37.31 take diflucan tab- only took one [...] 2 FOR LIFE ( - MEDICARE SUPPLEMENT) [id number] Mariano Robert [id number] Jillian Robert 09/27/2024 1 [place] Jillian Robert [id number] Jillian Robert Notes Date Note Type Note [...] and itching, burning with urination Dylan King, GAMA [address], [place], [address], [place] - [facility] 09/27/2024 14:06:54 OBGyn Episode No OBEpisode recorded.
--- OUTSIDE RECORDS SUMMARY | 2024-11-22 10:12 | XMS_ITS | Clinical Summary ---
Author Organization [facility] Address [address] [id number] Care Team Providers Care Employee Communications Coordinator Name Role Phone Roman King RUBY ON RAILS ENGINEER Primary Care Provider [phone] Allergies Active Allergy Reactions Criticality Noted Date [...] Disposable Pump (Omnipod DASH Pods, Gen 4,) [facility] Active Insulin Disposable Pump (Omnipod DASH Pods, Gen 4,) [facility] Omnipod Dash Pods (Gen 4) subcutaneous cartridge [...] Description 12/17/2024 12:00 PM EDT Office Visit [facility] [address] [place] [address] Isabel Womack, RUBY ON RAILS ENGINEER [address] [facility] [address] [place] [address] Health Maintenance Due Date Last [...] (2 - Td or Tdap) 04/20/2023 04/20/2013 [id number] Vaccine (4 - season) 2024 04/11/2021, 08/31/2020, [...] age to complete this topic Insurance MEDICARE [facility] Care Teams Employee Communications Coordinator Relationship Specialty Start Date End Date Roman King APRN [address] [place] [id number] PCP - General 01/21/22
--- OUTSIDE RECORDS SUMMARY | 2024-11-22 10:12 | XMS_ITS | Clinical Summary ---
Author Organization [facility] Address [address] [facility] [address] [place] [address] Phone Care Team Providers Care Milk Hauler Name Role Phone Roman Mercer Primary Care Provider [phone] Allergies Active Allergy Reactions Criticality Noted Date [...] sliding scale. Active flash glucose scanning reader (Local Yokel MediaSTYLE SOLOMON 14 DAY READER) Misc Misc by [facility].(Non-Drug; Combo Route) route. Active aspirin 81 mg [...] this topic Medical Devices Implanted Type Area Cable Mock Up Assembler Device Identifier Shelf Expiration Date Model / Serial / Lot Bilateral Iol Lower Back Metal Cage/ 2 Rods/8 Screws Cervical Fusion Right Shoulder Screws/ Anchors Kt Graft 2.8ml Infs Sm Clara Matrx 2-Tn Bnd 5ml Strl H2o - [id number] Implanted:Qty: 1 on 08/14/2022 by Ki Lawson MD at [facility] Bilateral: Spine Lumbar [employer]:SOFAMO R DANEK 06/09/2024 [id number] / / [id number] Cage Modulus Alif [id number] 10 Degree - [id number] Implanted:Qty: 1 on 08/14/2022 by Ki Lawson MD at [facility] N/A: Spine Lumbar NUVASIVE 08/12/2026 [id number] / / [id number] [employer] 3dp Interfixated Alif [id number] 2pk - [id number] Implanted:Qty: 2 on 08/14/2022 by Ki Lawson MD at [facility] N/A: Spine Lumbar NUVASIVE 04/03/2026 [id number] / / [id number] Procedures Procedure Name Priority Date/Time Associated Diagnosis [...] bone density assessment. Study was performed on [employer] APEX 5. Bone Density: Region BMD T-score [...] 5.6 % 11/26/2022 3:06 PM EDT [facility] Est. Avg Glucose 232 mg/dL 11/26/2022 3:06 PM EDT [facility] Blood VENOUS BLOOD / Unknown Venipuncture / Unknown 11/26/2022 1:59 PM EDT 11/26/2022 2:05 PM EDT Narrative [facility] - 11/26/2022 3:06 PM EDT REFERENCE RANGE: Normal: 4.0-5.6% Pre-diabetes: 5.7-6.4% Provisional diagnosis of diabetes: >6.4% Hgb F>10% and anything which shortens red cell survival, such as hemolytic anemia, or unstable hemoglobin variants such as HbSS, HbSC, or HbCC, will lower the HbA1c value associated with a given level of glycemic control. us Lisa Serrano DO CHEMISTRY ORDERABLES Fi nal Result [facility] [address] [facility] , [place] [address] * (ABNORMAL) LIPID SCREEN (11/26/2022 1:59 PM EDT) Cholesterol 143 <200 mg/dL 11/26/2022 3:14 PM EDT [facility] Comment: < 200 Desirable 200 - 239 Borderline High >= 240 High Triglyceride 383(H) <150 mg/dL 11/26/2022 3:14 PM EDT [facility] Comment: < 150 Normal 150 - 199 Borderline High 200 - 499 High >= 500 Very High HDL 29(L) >=40 mg/dL 11/26/2022 3:14 PM EDT [facility] [employer] Comment: > 60 Optimal 40 - 60 Acceptable < 40 Low LDL Calculated 56 <100 mg/dL 11/26/2022 3:14 PM EDT [facility] Comment: < 100 Optimal 100 - 129 Near or above optimal 130 - 159 Borderline High 160 - 189 High >= 190 Very High Non-HDL-C Calculated 114 <=129 mg/dL 11/26/2022 3:14 PM EDT [facility] [employer] [employer] Comment: <130 Desirable 130-159 Above Desirable 160-189 Borderline High 190-219 High >= 220 Very High Fasting Specimen? No None 023 3:14 PM EDT [facility] Blood VENOUS BLOOD / Unknown Venipuncture / Unknown 11/26/2022 1:59 PM EDT 11/26/2022 2:05 PM EDT us Lisa Serrano DO CHEMISTRY ORDERABLES Fi nal Result [facility] [address] [facility], [place] [address] [facility] [address] [place] [address] from Last 3 Months or Most Recently Relevant to Health Maintenance Insurance MEDICARE [place] PART A AND B [employer] FOR [place] [address] Advance Directives For more information, please contact: [phone] * Full Code (Latest Code Status on File) Date Activated Date Inactivated Comments 11/25/2022 8:31 PM 11/30/2022 5:15 PM * Full Code Date Activated Date Inactivated Comments 08/14/2022 3:40 PM 08/15/2022 8:17 PM Care Teams Milk Hauler Relationship Specialty Start Date End Date Roman Mercer [address] [place] [address] PCP - General Family Medicine 04/24/20
--- OUTSIDE RECORDS SUMMARY | 2024-11-22 10:12 | XMS_ITS | Continuity of Care Document ---
[facility] Organization [facility] Address [address] [place] [address] Care Team Providers Care Church Supervisor Name Role Phone DYLAN KING Primary Care Provider MAKENZIE Dahl Brown Sourer [phone] STEPH BLAS Finish Mixer DENIS RAMIREZ Hub Borer Assessment Encounter Date Assessment Date Assessment LastModified by Organization Details LastModified Time 11/19/2024 11/19/2024 Patient presente d to office today for their Medicare Annual Wellness Visit. Education was provided on healthy nutrition, including a diet rich in fruits and vegetables, minimizing simple carbohydrates, salt, and saturated fats. Encouraged regular cardiovascular exercise such as walking at least 30 minutes daily, 5 times per week. Emphasized preventive health measures and educated pt on fall prevention and community-based lifestyle interventions to help reduce health risks and promote healthy living. Medicare Preventive Services Check List reviewed and printed for patient. jetler Not available 11/19/2024 10:41:02 Plan of Treatment Reminders Order Date Submit Date Provider Last Modified By Organization Details Last Modified Time Details Appointments Follow Up 20 2024 01:00P M Margarita Banks, GAMA Not available Not available Not available Lab HbA1c (hemoglob in A1c), blood 2024 025 efryman [facility], [address], Jose [address], [place], [address], 11/19/2024 12:07:23 C reactive protein, QN, serum or plasma 2024 025 efryman [facility], [address], [place] [address], [place], [address], 11/19/2024 12:07:23 erythrocy te sedimenta tion rate by [place] [facility] method 2024 025 efryman [facility], [address], [place] [address], [place], [address], 11/19/2024 12:07:23 CMP, serum or plasma 2024 025 [facility], [address], [place] [address], [place], [address], 11/19/2024 12:07:23 CBC w/ auto diff 2024 025 [facility], [address], [place] [address], [place], [address], 11/19/2024 12:07:23 lipid panel, serum 2024 025 [facility], [address], [place] [address], [place], [address], 11/19/2024 12:07:23 glucose, fingersti ck, blood [address] [place] [address], [address] [place] [address], [phone], 11/19/2024 16:25:32 glucose, fingersti ck, blood [address] [place] [address], [address] [place] [address], [phone], 11/19/2024 16:25:32 TSH + free T4, serum [address] [place], [place] [address]man [facility], [address], [place] [address], [place], [address], 11/19/2024 12:07:23 Referral podiatris t referral 2024 025 [place] [address] Lucia Pelletier DPM, [address] [place] [address] [address], [place], [address], 11/19/2024 13:47:[address] referral - [facility], [address] [facility], [place], [address], 11/22/2024 09:30:46 Procedures None recorded. Surgeries None recorded. Imaging XR, foot, 3 or more view [address] (X-Ray), [address] [place] [address] [address], [place], [address], 11/19/2024 13:47:54 electroca rdiogram 2024 025 [facility], [address] [place] [address], [phone], 11/19/2024 16:58:29 Medication Orders allopurin ol 100 mg tablet 2024 025 [facility], [address] [place] [address], [address], 11/19/2024 12:07:23 doxycycli ne hyclate 100 mg tablet 2024 025 [facility], [address] [place] [address] [address], [place], [phone], 11/20/2024 12:02:51 Normal Saline Flush 0.9 % injection syringe 2024 025 [facility], [address] [place] [address], [address], 11/19/2024 16:25:32 sodium chloride 0.9 % intraveno us solution 2024 025 efryman [facility], [address] [place] [address], [address], 11/19/2024 16:25:32 Patient TargetsNo targets recorded. Patient Instructions Encounter Date Encounter Id Patient Instructions Last Modified By Organization Details Last Modified Time 11/19/2024 [id number] advance directives: care instructions efryjudah Not available 11/19/2024 12:07:23 learning about depression efryjudah Not available 11/19/2024 12:07:23 preventing falls : care instructions efryman Not available 11/19/2024 12:07:23 medicare preventive services guide efryjudah Not available 11/19/2024 12:07:23 Reason for Referral Supervisor Intermediates Referral for Ulce r of toe due to type 2 diabetes mellitus Referring Physician: [facility], Encounter Date: 11/19/2024 Neurologist Referral for Imp aired cognition memory clinic Referring Physician: [facility], Encounter Date: 11/19/2024 Results Created Date Observation Date Name Description Value Unit Range Abnormal Flag Note LastModifiedBy Organization Detail LastModifiedTime 11/20/1911/19/2024 gluco se, finge rstic k, blood Blood Glucose: mg/dl 118 Not Available [address], [address], 11/19/2024 15:35:59 11/20/19 25 11/19/2024 gluco se, finge rstic k, blood Reference Range (60-100) abnorm al Not Available [address], [address], 11/19/2024 15:35:59 11/20/19 25 11/19/2024 gluco se, finge rstic k, blood Blood Glucose: mg/dl 150 Not Available [address], [address], 11/19/2024 15:35:37 11/20/19 25 11/19/2024 gluco se, finge rstic k, blood Reference Range (60-100) abnorm al Not Available [address], [place], [address], 11/19/2024 15:35:37 11/20/19 25 11/19/2024 elect rocar diogr am No observ ation record ed. efmarixa [address], [place], [address], 11/19/2024 16:58:35 11/20/19 25 11/19/2024 elect rocar diogr am No observ ation record ed. [facility] [address], [place], [address], 11/22/2024 09:08:29 Result Notes None recorded. Problems Name Problem SNOMED Code Status Onset Date Resolution Date Notes Provider Name and Address Organization Details Recorded Time Type 2 diabetes mellitus 81222554 Active 2021 Dylan King, COMP FIELD CASE MANAGER [address], [place], [address], [place] - [facility] 10:07:29 Hypertensive disorder 83991178 Active 2021 Dylan King, COMP FIELD CASE MANAGER [address], [place], [address], [place] [facility] 10:07:09 Hypercholester olemia 76935395 Active 2021 Dylan King, COMP FIELD CASE MANAGER [address], [place], [address], [place] [facility] 2 10:07:05 Gastroesophage al reflux disease 677466877 Active 2021 Dylan King, COMP FIELD CASE MANAGER [address], [place], [address], [place] - [facility] 2 10:06:49 Hypothyroidism 21947121 Active 2021 Dylan King COMP FIELD CASE MANAGER [address], [place], [address], [place] - [facility] 2 10:07:12 Neuropathy 296975597 Active 2021 Dylan Ramirescarito, COMP FIELD CASE MANAGER [address], [place], [address], [place] - [facility] 2 10:07:19 Arthritis 8223079 Active 2021 Tonezion King, COMP FIELD CASE MANAGER [address], [place], [address], [place] - [facility] 2 10:06:47 Coronary arterioscleros is 12644945 Active 2021 Tonezion King, COMP FIELD CASE MANAGER [address], [place], [address], [place] - [facility] 2 10:18:21 Coronary artery bypass grafts x 3 Active 2021 Tonezion King, COMP FIELD CASE MANAGER [address], [place], [address], [place] - [facility] 2 10:18:34 Problem Notes None recorded. Procedures Surgical History Date Name Laterality Status Provider Name and Address Organization Details Recorded Time 025 Advance Care Planning completed Fina Vasquez [place] - [facility] 11/19/2024 10:41:02 025 IV Infusion completed Fina [place] [facility] 11/19/2024 15:44:19 025 Functional Status Assessed completed Fina Vasquez [place] [facility] 11/19/2024 10:41:02 024 Date of Last Colonoscopy completed Dia Youssef [place] - [facility] 2024 13:27:50 024 Medication Reconcilliation completed Fina [place] [facility] 12/02/2023 10:36:18 023 In and Out Catheterization completed Margarita Banks, COMP FIELD CASE MANAGER [address], [place], [address], [place] - [facility] 02/13/2023 14:34:26 023 Medication Reconcilliation completed Fina Vasquez [place] - [facility] 01/31/2023 10:55:15 023 Medication Reconcilliation completed Fina Pedro [place] - [facility] 01/06/2023 10:21:27 023 Medication Reconcilliation completed Fina Pedro [place] - [facility] 12/12/2022 10:55:58 023 Medication Reconcilliation completed Fina Pedro [place] - [facility] 11/25/2022 14:44:11 023 Date [...] [facility] 12/20/2021 15:34:17 002 Hysterectomy completed Fina Vasquez [place] - [facility] 12/02/2023 10:40:15 970 Caesarean Section completed Fina Vasquez [place] - [facility] 12/02/2023 10:40:15 970 Caesarean Section completed Dia Stears [place] - [facility] 12/20/2021 15:34:16 968 Appendectomy completed Fina Vasquez [place] - [facility] 12/02/2023 10:40:15 967 Appendectomy [...] Name and Address Organization Details Recorded Time 826267 lisinopri l medicatio n rash Not available high 12/17/2021 19118 RxNorm Fina Vasquez null, [place] - [facility] 2 10:17:08 969728 Oxycontin medicatio n hallucina tions moderate high 12/17/2021 98263 6 RxNorm Fina Vasquez [place] - [facility] 2 10:18:04 063708 codeine medicatio n rash moderate high 12/17/2021 2670 RxNorm Fina Vasquez [place], [place] - [facility] 2 10:16:43 512096 acetamino phen / oxycodone medicatio n hallucina tions severe high 12/17/2021 98169 3 RxNorm Fina Vasquez [place] - [facility] 2 10:17:43 339747 cephalexi n medicatio n eye swelling Not available low 11/11/2022 2231 RxNorm Fina [place], [place] - [facility] 3 12:54:33 036302 Macrobid medicatio n diarrhea moderate high 01/13/2023 31456 1 RxNorm vomit ing and diarr hea [...] Not Available Not Available Not Available [facility] Tyronza 3 mL 08/22 completed Not Available Not [...] Not Available Vitals Date Recorded Body height Respiratory rate Body mass index (BMI) Body weight Heart rate Oxygen saturation Oxygen saturation in Arterial blood by Pulse oximetry Heart rate Oxygen saturation Oxygen saturation in Arterial blood by Pulse oximetry Heart rate Oxygen saturation Oxygen saturation in Arterial blood by Pulse oximetry Oxygen saturation Oxygen saturation in Arterial blood by Pulse oximetry Inhaled oxygen flow rate Oxygen saturation Oxygen saturation in Arterial blood by Pulse oximetry Inhaled oxygen flow rate Heart rate Heart rate Systolic blood pressure Diastolic blood pressure Systolic blood pressure Diastolic blood pressure Systolic blood pressure Diastolic blood pressure Systolic blood pressure Diastolic blood pressure Systolic blood pressure Diastolic blood pressure Provider Name and Address Organization Details Last Updated DateTime 5 151.13 cm 20 /min 28 kg/m2 70357.5 2 g 84 /min 94 % 94 % 64 /min 94 % 94 % 64 /min 92 % 92 % 97 % 97 % 3 L/min 100 % 100 % 3 L/min 74 /min 57 /min 130 mm[Hg] 82 mm[Hg] 70 mm[Hg] 50 mm[Hg] 82 mm[Hg] 52 mm[Hg] 110 mm[Hg] 60 mm[Hg] 100 mm[Hg] 60 mm[Hg] Fina Vasquez [place] - [facility] 5 15:39:55 Social History Question Answer Notes LastModified by KOTURA ion Details LastModified Time Tobacco Smoking Status [...] Or The Highest Degree You Have Received? [id number] Information not available 12/17/2021 Have There Been Any Changes To Your Family Or Social Situation? No Information no t available 07/14/2023 What Is The Fluoride Status Of Your Home? Unknown Information not available 07/14/2023 Have You Recently Or Are You Planning To Travel To An Area With Zika Virus? No Information not available 07/14/2023 Do You Have A Medical Power Of Yard Supervisor Cotton Gin? No Information not available 07/14/2023 What Was [...] anxious, or unable to sleep at night)? [id number] Information not available 12/20/2021 Do you have [...] available 11/19 10:13:20 Medical History Condition Response Thyroid Problems Y Kidney or Bladder Problems Y Diabetes Y Muscle, Joint, or Bone Problems Y Acid Reflux (GERD) Y Stroke Y Hypercholesterolemia Y Heart Disease Y Neuropathy Y Hypertension Y Gynecological History Statement/Question Response [...] high-dose, quadrivalent, PF 02/21/2022 completed Dylan King, COMP FIELD CASE MANAGER [address], [place], [address], [place] [facility] 03/26/2022 17:30:58 Influenza, high-dose, quadrivalent, PF 04/25/2023 completed Fina Vasquez [place], [place] - [facility] 04/25/2023 13:24:26 Influenza, high-dose, trivalent, PF 02/24/2024 completed F[place] [facility] 03/11/2024 17:52:11 COVID-19, mRNA, LNP-S, PF, 100 mcg/0.5mL dose or 50 mcg/0.25mL dose 08/02/2020 [place] [facility] 08/22/2022 14:19:25 COVID-19, mRNA, LNP-S, PF, 100 mcg/0.5mL dose or 50 mcg/0.25mL dose 08/31/2020 completed Fina Pedro null, [place] - [facility] 08/22/2022 14:19:25 COVID-19, mRNA, LNP-S, PF, 100 mcg/0.5mL dose or 50 mcg/0.25mL dose 04/11/2021 completed Fina [place] [facility] 08/22/2022 14:19:25 Tdap 04/20/2013 completed F[place] [facility] 08/22/2022 14:19:25 zoster live 04/20/2013 completed F[place] [facility] 08/22/2022 14:19:25 Influenza, high-dose, trivalent, PF 05/16/2021 completed Fina [place] [facility] 08/22/2022 14:19:25 Past Encounters Encounter ID Performer Location Encounter Start Date Encounter Closed Date Diagnosis/Indication Diagnosis SNOMED-CT Code Diagnosis ICD10 Code Diagnosis Note [id number] Dylan King APRN [address] [address] 11/19/2024 10:13:18 11/19/2024 13:47:54 Adult health examination 123626284 Z00.00 Depression screening 171 393767 Z13.31 A depression screening was completed via a standardiz ed screening tool. 5 minutes were spent discussing depression screening results and risk factors. Examinatio n of blood pressure 487716913 Z01.30 Diet education 79867664 Z71.3 Counseling 579554812 Z71 .82 Exercise counseling . Patient encouraged to exercise 30 minutes 5 days a week. At [facility] ed risk for falls 428501305 Z91.81 STEADI FAST screening score of _12____. Advance care planning 71 9659602 Z71.89 Gout 40481445 M10.9 Hypertensive disorder 38 753716 I10 Hypercholesterolemia 136 37344 E78.00 Type 2 lexx betes mellitus 02441854 E11.21 Hypothyroidism 15672720 E03.9 Neuropathy 090702467 G62 .9 Pt compliant with plan of careKasper reviewed and appropriat emedicatio n compliance discussedC ontrol substance agreement on fileuds: Hepatitis C screening declined 7466390425 5105 Z53.20 Ulcer of t oe due to type 2 diabetes mellitus 6533302838 22847 E11.621 L97.529 follow up with podiatryan tibioticsb etadine soaked dressings change dressing daily Pain of le ft knee joint 6921558161 15727 M25.562 Impaired cognition 05872 6002 G31.84 Low blood pressure 52408 003 I95.9 Syncope and collapse 309 069862 R55 if episode happens go to ed Health Concerns Section Related Observation LastModified by Organization Detai ls LastModified Time None Recorded Concern Status LastModified by Organization Details LastModified Time None Recorded Payers Encounter Date Sequence Insurance Name Policy Number Policy Elena Covered Member ID Elena Member ID Guarantor Name 11/19/2024 2 FOR LIFE ( - MEDICARE SUPPLEMENT) [id number] Mariano Robert [id number] Jillian Robert 11/19/2024 1 [place] Jillian Robert [id number] Jillian Robert Notes Date Note Type Note Provider Name and Address Organization Details Recorded Time 11/19/2024 text/html Medicare Annual Wellness VisitReported bypatient.Diet and Nutrition:discussed portion control; discussed diet improvement Fracture Risk:history of fractures Physical Activity:discussed weightbearing activities Depression Risk:never feels sad, empty, or tearful; no loss of interest in activities; no significant changes in weight; no sleep disturbances or insomnia; no agitation; no loss of energy; no feelings of worthlessness or guilt; no thoughts of suicide; no history of depression; no history of mood disorders Orientation:no disorientation to time; no disorientation to date; no disorientation to place Concentration and Memory:no decreased concentrating ability; does not forget words;memory lapses or loss Speech/Motor difficulties:no speech difficulties; no difficulty expressing formulated concepts; no difficulty with fine manipulative tasks; no difficulty writing/copying; no slowed reaction time; does not knock things over when trying to pick them up Hearing:no loss of hearing Vision:no vision problems Activities of Daily Living:able to bathe with limited or no assistance; able to contol urination and bowels; able to dress with limited or no assistance; able to feed self with limited or no assistance; able to get out of chair or bed with limited or no assistance; able to groom with limited or no assistance; able to toilet with limited or no assistance Instrumental Activities of Daily Living:able to do house work with limited or no assistance; able to grocery shop with limited or no assistance; able to manage medications with limited or no assistance; able to manage money with limited or no assistance; able to prepare meals with limited or no assistance; able to use the phone with limited or no assistance Falls Risk Assessment:fall(s) in the past year 6; fall(s) since last visit1 Home Safety:no unsafe zakiya hazzards; no unsafe stairs; no unsafe gas appliances; working smoke/CO detectors; use of seatbelts; good lighting in the home Current level of painNo pain: 0/10 74 yr old female presents for a medicare annual wellness exam. She has a sore to her left great toe that won't heal. She cut a blister open to drain it. Complains of knee pain and abrasion. Upon tying tourniquet to right arm- Patient was searching in her purse and feeling dizzy like her blood sugar was low. Her right arm kept falling from the chair arm and her face was drooping on the right. FSBS was 150, supplied small amount of soda and peanut butter/cracker- patient was very drowsy and had to have assistance to drink. Patient continued to get pale, weak ,unable to respond. 911 was called and is at bedside. He reports she has episodes of sleepiness at home but not like this. Patient was stimulated by light sternal rub and our voices, she would moan but no purposeful response. BP was low, IV x2 started- 1 liter of NS was given wide open, o2 applied for saturation of 92%, ecg, blood sugar, and cardiac monitoring performed. BP slowly improved and patient became more responsive as EMS personnel arrived. Patient [facility] to [facility] per [facility]. Dylan King, COMP FIELD CASE MANAGER [address], [place], [address], [place] [facility] 11/19/2024 16:25:37 OBGyn Episode No OBEpisode recorded.
--- OUTSIDE RECORDS SUMMARY | 2024-11-22 10:12 | XMS_ITS | Data Portability ---
Author Organization [facility] and [facility] Address [address] [place] [address] Assessment No assessment recorded. Plan of Treatment Reminders Order Date Submit Date Provider Last Modified By Organization Details Last Modified Time Details Appointments INJ ONLY 15 2024 10:30A M LASHELL TEJADA, DO Not available Not available Not available Lab None recorded. Referral None recorded. Procedures None recorded. Surgeries None recorded. Imaging None recorded. Medication Orders Kenalog 10 mg/mL suspensio n for injection [address] - [address], [address], 09/01/2024 10:31:05 bupivacai ne HCl 0.5 % (5 mg/mL) injection solution [address] - [address], [address], 09/01/2024 10:31:05 Kenalog 10 mg/mL suspensio n for injection [address] - [address], [address], 05/10/2024 13:53:03 bupivacai ne HCl 0.5 % (5 mg/mL) injection solution [address] - [address], [address], 05/10/2024 13:53:03 Kenalog 10 mg/mL suspensio n for injection 2023 [place] [address] [facility] - [address], [address], 03/09/2024 16:28:55 bupivacai ne HCl 0.5 % (5 mg/mL) injection solution [address] [facility] - [address], [address], 03/09/2024 16:28:55 Patient TargetsNo targets recorded. Patient InstructionsNo instructions recorded. Reason for Referral None Reported. Medical Equipment None Reported. Allergies No known drug allergies Medications Name Sig Start Date Stop Date Status Note LastModified by Organization Details LastModified Time fluconazole 100 mg tablet active Not Available Not Availabl e Not Available carvedilol 25 mg tablet active Not Available Not Available No t Available prednisone 10 mg tablet TAKE ONE (1) TABLET TWICE A DAY BY ORAL ROUTE FOR TWO (2) DAYS. active Not Available Not Available No t Available venlafaxine ER 75 mg capsule,exten ded release 24 hr active Not Available Not Available Not Available gabapentin 600 mg tablet active Not Available Not Availabl e Not Available doxycycline hyclate 100 mg capsule TAKE ONE (1) CAPSULE TWICE A DAY BY ORAL ROUTE FOR 10 DAYS. active Not Available Not Available No t Available fosfomycin tromethamine 3 gram oral packet DISSOLVE THE CONTENTS OF 1 PACKET AND DRINK every other DAY FOR 10 DAYS as directed active Not Available Not Available No t Available fluconazole 150 mg tablet TAKE ONE TABLET BY MOUTH NOW, REPEAT DOSE IN THREE (3) DAYS active Not Available Not Available No t Available sulfamethoxaz ole 400 mg-trimethopr im 80 mg tablet TAKE ONE TABLET BY MOUTH EVERY TWELVE HOURS FOR 10 DAYS -- FINISH ALL MEDICINE -- active Not Available Not Available No t Available bupivacaine HCl 0.5 % (5 mg/mL) injection solution Take 10 mg by injection route. 2024 active Not Available Not Available Not Avai lable alendronate 70 mg tablet active Not Available Not Available Not Available allopurinol 100 mg tablet active Not Available Not Availabl e Not Available ciprofloxacin 500 mg tablet TAKE ONE TABLET BY MOUTH EVERY TWELVE HOURS FOR 7 DAYS -- FINISH ALL MEDICINE -- active Not Available Not Available No t Available omeprazole 40 mg capsule,delay ed release active Not Available Not Available N ot Available methenamine hippurate 1 gram tablet TAKE ONE (1) TABLET TWICE A DAY BY ORAL ROUTE FOR 30 DAYS. active Not Available Not Available No t Available Kenalog 10 mg/mL suspension for injection Take 20 mg by injection route. 2024 active Not Available Not Available Not Avai lable Synthroid 112 mcg tablet active Not Available Not Available N ot Available insulin lispro (U-100) 100 unit/mL subcutaneous solution active Not Available Not Available Not Available estradiol 0.01% (0.1 mg/gram) vaginal cream active Not Available Not Availabl e Not Available levofloxacin 750 mg tablet TAKE ONE TABLET BY MOUTH EVERY DAY active Not Available Not Available No t Available meclizine 25 mg chewable tablet TAKE (1/2) TABLET BY MOUTH TWICE DAILY FOR 3 DAYS active Not Available Not Available No t Available rosuvastatin 40 mg tablet active Not Available Not Available Not Available peg 3350-electrol ytes 236 gram-22.74 gram-6.74 gram-5.86 gram solution MIX DIRECTED AND DRINK 240 ML (8 OUNCES) BY MOUTH EVERY 10 MINUTES UNTIL FECAL EFFLUENT IS CLEAR OR OTHERWISE DIRECTED DO NOT EXCEED TOTAL VOLUME OF 4000 ML active Not Available Not Available No t Available Myrbetriq 25 mg tablet,extend ed release active Not Available Not Available N ot Available icosapent ethyl 1 gram capsule active Not Available Not Available Not Available BD Veo Insulin Syringe Ultra-Fine 0.3 mL 31 gauge x 15/64 USE DIRECTED active Not Available Not Available No t Available Omnipod Dash Pods (Gen 4) subcutaneous cartridge active Not Available Not Available No t Available Gemtesa 75 mg tablet active Not Available Not Available Not Available Vitals None Recorded Social History None recorded. Functional Status None recorded. Mental Status None recorded. Family History Nothing Reported. Medical History No medical history recorded. Gynecological HistoryNo gynecological history recorded. Obstetrics History GPAL:G 0 P 0 0 0 0 Immunizations Vaccine Type Date Status Note Provider Nam e and Address Organization Details Recorded Time Influenza, high-dose, quadrivalent, PF 02/21/2022 completed Diann Sweeney-Gunner [facility] [place], [place] - [facility] - [place] & [place] 05/10/2024 13:41:40 Influenza, high-dose, quadrivalent, PF 04/25/2023 completed Diann Sweeney-Pitakis null, [place] - [facility] - [place] & [place] 05/10/2024 13:41:40 COVID-19, mRNA, LNP-S, PF, 100 mcg/0.5mL dose or 50 mcg/0.25mL dose 08/02/2020 completed Diann Sweeney-Pitakis null, [place] - [facility] - [place] & [place] 05/10/2024 13:41:40 COVID-19, mRNA, LNP-S, PF, 100 mcg/0.5mL dose or 50 mcg/0.25mL dose 08/31/2020 completed Diann Sweeney-Pitakis null, [place] - [facility] & [place] 05/10/2024 13:41:40 COVID-19, mRNA, LNP-S, PF, 100 mcg/0.5mL dose or 50 mcg/0.25mL dose 04/11/2021 completed Diann Sweeney-Pitakis null, [place] - [facility] - [place] & [place] 05/10/2024 13:41:41 Tdap 04/20/2013 completed Diann Sweeney-Pitakis [place] [facility] - [place] & [place] 05/10/2024 13:41:41 zoster live 04/20/2013 completed Diann Sweeney-Pitakis [place] [facility] [place] & [place] 05/10/2024 13:41:41 Influenza, high-dose, trivalent, PF 02/24/2024 completed Mercedez Yen null, [place] - [facility] - [place] & [place] 09/01/2024 10:16:21 Influenza, high-dose, trivalent, PF 05/16/2021 completed Diann Sweeney-Pitakis [place] [facility] [place] 05/10/2024 13:41:41 Past Encounters Encounter ID Performer Location Encounter Start Date Encounter Closed Date Diagnosis/Indication Diagnosis SNOMED-CT Code Diagnosis ICD10 Code Diagnosis Note [id number] DO AAKASH REYES [address] [address] 03/09/2024 13:25:41 03/09/2024 14:26:14 Bursitis of right hip 915053694 M06.002 [id number] DO AAKASH REYES [facility] [address] [place] [address] 05/10/2024 13:14:55 05/10/2024 13:48:55 Bursitis of right hip 121585639 M06.673 [id number] DO AAKASH REYES [facility] [address] [place] [address] 09/01/2024 10:05:42 09/01/2024 10:22:08 Bursitis of right hip 710480002 M06.251 Health Concerns Section Related Observation LastModified by Organization Detai ls LastModified Time None Recorded Concern Status LastModified by Organization Details LastModified Time None Recorded Advance Directives Directive None Recorded Payers Insurance Date Sequence Insurance Name Policy Number Policy Elena Covered Member ID Elena Member ID Guarantor Name 08/29/2024 2 FOR LIFE () Jillian Robert [id number] Jillian Robert 08/07/2024 1 [place] Jillian Robert [id number] Jillian Robert Notes Date Note Type Note Provider Name and Address Organization Details Recorded Time 03/09/2024 text/html Pt presents toda y with right hip pain DOO: 1 year. No injury. Pt was seeing Dr. Lawson at [facility] and was told that she has Bursitis, he then referred her to the clinic. Pt had her last hip injection on 03.11.2023. Injections no longer seem to be helping. Pt takes aspirin and ibuprofen for pain. Pt has been using a walker since pain in hip started. Hx of: L5-S1 fusion on 08.14.2022. Right hip X-rays taken @ [facility] in [place] on 07.23.2023.[id number] LASHELL TEJADA DO [address], [place], [address], [place] - [facility] - [place] & [place] 03/10/2024 07:38:07 05/10/2024 text/html 73 y/o female here today for follow up RIGHT bursa hip joint was injected 03.09.24. Helped up until 2 weeks ago, at least 75% but pain isn't as bad right now prior to getting injection. Ambulating with rollator walker. Taking Ibu PRN. [id number] LASHELL TEJADA, [address] [place] [address],[address], [place], [address], [facility] & [place] 05/10/2024 13:50:09 09/01/2024 text/html Pt is here wanting another rt hip bursa inj. She reports the inj has been effective for 3 months-[id number] LASHELL TEJADA, DO [address], [place], [address], [facility] - NT [facility] 09/01/2024 13:19:42 OBGyn Episode No OBEpisode recorded.
--- OUTSIDE RECORDS SUMMARY | 2024-11-22 10:13 | XMS_ITS | Continuity of Care Document ---
Author Organization [place] - [facility] Address [address] [place] [address] Care Team Providers Care Machines Technician Name Role Phone DYLAN LEBRON Primary Care Provider MAKENZIE Dahl Tool Crib Clerk STEPH BLAS Casting Tester DENIS RAMIREZ Tv Technician Assessment Encounter Date Assessment Date Assessment LastModified [...] future with preventative. PCR pending, followup 4months [place] [id number] Not available 10/08/2024 14:11:17 Plan of Treatment Reminders Order Date Submit Date Provider Last Modified By Organization Details Last Modified Time Details Appointments Follow Up 20 2024 01:00P Rosales Banks, GAMA Not available Not available Not available Lab urinalysi s, dipstick 2024 [facility], [address], [place], [address], 10/08/2024 14:10:34 infectiou s disease panel 2024 025 [facility], [address], [place], [address], 10/11/2024 07:49:41 Referral None recorded. Procedures None recorded. Surgeries None recorded. Imaging None recorded. Medication Orders estradiol 0.01% (0.1 mg/gram) vaginal cream 2024 025 [facility], [facility] [place], [address], 10/08/2024 14:10:36 methenami ne hippurate 1 gram tablet 2024 025 [facility], [facility] [place], [address], 10/08/2024 14:11:40 Patient TargetsNo targets recorded. Patient Instructions Encounter Date Encounter Id Patient Instructions Last Modified By Organization Details Last Modified Time 10/08/2024 [id number] high blood pressure: care instructions Not available [...] , dipst ick Leukocytes Trace Not Available [facility] [address] [place], [address], 10/04/2024 09:39:08 10/09/19 25 10/08/2024 urina lysis , dipst ick Nitrite negati ve Not Available [facility] [address] [place], [address], 10/04/2024 09:39:08 10/09/19 25 10/08/2024 urina lysis , dipst ick Urobilinogen .2 Not Available [facility] [address] [place], [address], 10/04/2024 09:39:08 10/09/19 25 10/08/2024 urina lysis , dipst ick Protein 100 Not Available [facility] [address] [place], [address], 10/04/2024 09:39:08 10/09/19 25 10/08/2024 urina lysis , dipst ick pH 5.5 Not Available [facility] [address] [place], [address], 10/04/2024 09:39:08 10/09/19 25 10/08/2024 urina lysis , dipst ick Blood Negati ve Not Available [facility] [address] [place], [address], 10/04/2024 09:39:08 10/09/19 25 10/08/2024 urina lysis , dipst ick Specific [facility] 1.030 Not Available [facility] [address] [place], [address], 10/04/2024 09:39:08 10/09/19 25 10/08/2024 urina lysis , dipst ick Ketone Negati ve Not Available [facility] [address] [place], [address], 10/04/2024 09:39:08 10/09/19 25 10/08/2024 urina lysis , dipst ick Bilirubin Negati ve Not Available [facility] [address] [place], [address], 10/04/2024 09:39:08 10/09/19 25 10/08/2024 urina lysis , dipst ick Glucose Negati ve Not Available [facility] [address] [place], [address], 10/04/2024 09:39:08 10/09/19 25 10/08/2024 urina lysis , dipst ick Appearance Clear Not Available [facility] [address] [place], [address], 10/04/2024 09:39:08 10/09/19 25 10/08/2024 urina lysis , dipst ick Color Yellow Not Available [facility] [address] [place], [address], 10/04/2024 09:39:08 11/20/19 25 11/19/2024 elect rocar diogr am No observ ation record ed. [address], [address], 11/19/2024 16:58:35 11/20/19 25 11/19/2024 elect rocar diogr am No observ ation record ed. [facility] [address], [place], [address], 11/22/2024 09:08:29 Result Notes None recorded. Problems Name Problem SNOMED Code Status Onset Date Resolution Date Notes Provider Name and Address Organization Details Recorded Time Type 2 diabetes mellitus 50465304 Active 2021 Dylan Lebron, ANTHROPOLOGY AND ARCHEOLOGY INSTRUCTOR [address], [place], [address], [place] - [facility] 10:07:29 Hypertensive disorder 22544176 Active 2021 Dylan Lebron, ANTHROPOLOGY AND ARCHEOLOGY INSTRUCTOR [address], [place], [address], [place] [facility] 10:07:09 Hypercholester olemia 87238986 Active 2021 Dylan Lebron, ANTHROPOLOGY AND ARCHEOLOGY INSTRUCTOR [address], [place], [address], [place] [facility] 10:07:05 Gastroesophage al reflux disease 036401694 Active 2021 Dylan Lebron APRN [address], [place], [address], [place] [facility] 10:06:49 Hypothyroidism 15181856 Active 2021 Dylan Lebron APRN [address], [place], [address], [place] [facility] 10:07:12 Neuropathy 585042884 Active 2021 Dylan Lebron APRN [address], [place], [address], [place] [facility] 10:07:19 Arthritis 8785249 Active 2021 Dylan Lebron APRN [address], [place], [address], [place] [facility] 10:06:47 Coronary arterioscleros is 55685007 Active 2021 Dylan Lebron, ANTHROPOLOGY AND ARCHEOLOGY INSTRUCTOR [address], [place], [address], [place] [facility] 10:18:21 Coronary artery bypass grafts x 3 Active 2021 Dylan Lebron APRN [address], [place], [address], [place] [facility] 10:18:34 Problem Notes None recorded. Procedures Surgical History Date Name Laterality Status Provider Name and Address Organization Details Recorded Time 025 Advance Care Planning completed Fina Vasquez [place] [facility] 11/19/2024 10:41:02 025 IV Infusion completed Fina Vas[place] [facility] 11/19/2024 15:44:19 025 Functional Status Assessed completed Finaradha Vasquez [place] [facility] 11/19/2024 10:41:02 024 Date of Last Colonoscopy completed Dia Yuossef [place] - [facility] 2024 13:27:50 024 Medication Reconcilliation completed Fina Vasquez [place] [facility] 12/02/2023 10:36:18 023 In and Out Catheterization completed Margarita Banks, GAMA [address], [place], [address] [place] - [facility] 02/13/2023 14:34:26 023 Medication Reconcilliation completed Finaradha Vasquez [place] [facility] 01/31/2023 10:55:15 023 Medication Reconcilliation completed Fina Vasquez [place] [facility] 01/06/2023 10:21:27 023 Medication Reconcilliation completed Fina Vasquez [place] [facility] 12/12/2022 10:55:58 023 Medication Reconcilliation completed Fina Vasquez [place] [facility] 11/25/2022 14:44:11 023 Date of Last Mammogram completed Dia Youssef [place] - [facility] 10/17/2022 13:02:19 023 Most Recent Mammogram completed Dia Youssef [place] - [facility] 10/17/2022 13:02:44 023 Back Surgery completed Fina Vasquez [place] - [facility] 12/02/2023 10:40:15 022 Most Recent Bone Density completed Dia Youssef [place] - [facility] 12/20/2021 15:34:15 022 Stress test completed Dia Youssef [place] - [facility] 12/20/2021 15:34:16 021 Date [...] [facility] 12/17/2021 09:32:01 Gastrointestinal Surgery completed Dia Mikael [place] - [facility] 12/20/2021 15:34:16 Imaging Results None recorded. Procedure Notes None recorded. Medical Equipment None Reported. Allergies Allergen ID Allergen Name Allergen Category Reaction Reaction Severity Criticality Documentation Date Start Date Code Code System Note Provider Name and Address Organization Details Recorded Time 534933 lisinopri l medicatio n rash Not available high 12/17/2021 19259 RxNorm Fina Vasquez [place], [place] - [facility] 10:17:08 490520 Oxycontin medicatio n hallucina tions moderate high 12/17/2021 28340 6 RxNorm Fina Vasquez [place] - [facility] 10:18:04 659280 codeine medicatio n rash moderate high 12/17/2021 2670 RxNorm Fina Vasquez [place] - [facility] 10:16:43 398172 acetamino phen / oxycodone medicatio n hallucina tions severe high 12/17/2021 46851 3 RxNorm Fina Vasquez [place] - [facility] 10:17:43 261827 cephalexi n medicatio n eye swelling Not available low 11/11/2022 2231 RxNorm Fina Vasquez [place] - [facility] 3 12:54:33 287247 Macrobid medicatio n diarrhea moderate high 01/13/2023 35655 1 RxNorm vomit ing and diarr hea [...] Not Available Not Available Not Available [facility] 3 mL 08/22 completed Not Available Not [...] Updated DateTime 5 151.13 cm 28.2 kg/m2 91717.1 2 g 86 /min 90 % 90 [...] Or The Highest Degree You Have Received? [id number] Information not available 12/17/2021 Have There Been Any Changes To Your Family Or Social Situation? No Information no t available 07/14/2023 What Is The Fluoride Status Of Your Home? Unknown Information not available 07/14/2023 Have You Recently Or Are You Planning To Travel To An Area With Zika Virus? No Information not available 07/14/2023 Do You Have A Medical Power Of Rental Manager? No Information not available 07/14/2023 What [...] anxious, or unable to sleep at night)? [id number] Information not available 12/20/2021 Do you have [...] high-dose, quadrivalent, PF 02/21/2022 completed Dylan Lebron, GMAA [address], [place], [address], [place] [facility] 03/26/2022 17:30:58 Influenza, high-dose, quadrivalent, PF 04/25/2023 completed Fina Vasquez [place] [facility] 04/25/2023 13:24:26 Influenza, high-dose, trivalent, PF 02/24/2024 completed Fina Vas[place] [facility] 03/11/2024 17:52:11 COVID-19, mRNA, LNP-S, PF, 100 mcg/0.5mL dose or 50 mcg/0.25mL dose 08/02/2020 completed Fina Vasquez [place] - [facility] 08/22/2022 14:19:25 COVID-19, mRNA, LNP-S, PF, 100 mcg/0.5mL dose or 50 mcg/0.25mL dose 08/31/2020 completed Fina Vas[place] [facility] 08/22/2022 14:19:25 COVID-19, mRNA, LNP-S, PF, 100 mcg/0.5mL dose or 50 mcg/0.25mL dose 04/11/2021 completed Fina Vas[place] [facility] 08/22/2022 14:19:25 Tdap 04/20/2013 completed Fina Vas[place] [facility] 08/22/2022 14:19:25 zoster live 04/20/2013 completed Fina Vas[place] [facility] 08/22/2022 14:19:25 Influenza, high-dose, trivalent, PF 05/16/2021 completed Fina Vas[place] [facility] 08/22/2022 14:19:25 Past Encounters Encounter ID Performer Location Encounter Start Date Encounter Closed Date Diagnosis/Indication Diagnosis SNOMED-CT Code Diagnosis ICD10 Code Diagnosis Note [id number] Margarita Banks APRN [facility] [address] [place] [address] 10/08/2024 13:08:12 10/08/2024 14:14:05 Recurrent urinary tract infection 986099513 N39.0 -continue estradiol VC. Overactive urinary bladder 744591333 N32.81 -avoid anticholin ergics in this patient d/t potential patient harm. anticholin ergics interact with currently rx medication s and combo may incr. risk of BUSINESS OBJECTS ANALYST depression , psychomoto r impairment . Also [...] d gemtesa- caused swelling in legs. Hydronephrosis 42479344 N13.30 Chronic ki dney disease stage 4 347455720 N18.4 Hypertensive disorder 38 019837 I10 Type 2 lexx betes mellitus 71194375 E11.21 Coronary arteriosclerosis 28271504 I25.10 Mixed urin nasra incontinence 765084978 N39.46 Body mass index 25-29 - overweight 148737902 Z68.28 BMI 28.9 Overweight 401923067 E66 .3 [id number] Dylan Lebron APRN [address] [address] 09/27/2024 11:37:40 09/27/2024 12:12:41 Candidiasis of vagina 91674399 B37.31 take diflucan tab- only took one [...] 2 FOR LIFE ( - MEDICARE SUPPLEMENT) [id number] Mariano Robert [id number] Jillian Robert 10/08/2024 1 [place] Jillian Robert [id number] Jillian Robert Notes Date Note Type Note Provider Name and Address Organization Details Recorded Time text/html Lower Urinary Tract Symptoms (LUTS)Reported bypatient.Location:[facility] Quality:worsening Severity:bothersome Onset/Timing:> 1 year [...] faecalis -mid december 2022- d/c summary from [facility] reports admit for left pyelo UCX grew klebsiella pneumoniae. -01/13/23- UCx negative.-01/13/23- creat 2.2, gfr 27. -01/13/23- CT abd pel w/o- per report- moderate hydronephrosis and hydroureter on the left, stable. moderate thickening of the bladder, likely d/t under distension. -01/14/23- d/c summary from [facility]- reviewed. admitted 01/13/23 for uti. ucx [...] forgot to restart it again Margarita Banks, ANTHROPOLOGY AND ARCHEOLOGY INSTRUCTOR [address], [place], [address], [facility] - [facility] 10/08/2024 14:12:25 OBGyn Episode No OBEpisode recorded.
--- OUTSIDE RECORDS SUMMARY | 2024-11-22 10:14 | XMS_ITS | Data Portability ---
Author Organization Formerly [facility] Address [address] [place] [address] Care Team Providers Care Supermarket Manager Name Role Phone DYLAN LEBRON Primary Care Provider MAKENZIE Dahl Second Language Tutor STEPH BLAS Plant Mechanic DENIS RAMIREZ Forensic Toxicologist Assessment Encounter Date Assessment Date Assessment LastModified [...] future with preventative. PCR pending, followup 6wks [email or web address] Not available 08/24/2024 11:28:09 10/08/2024 10/08/2024 -discussed [...] pending, followup 4months Not available 10/08/2024 14:11:17 11/19/2024 11/19/2024 Patient presente d to office [...] Check List reviewed and printed for patient. [email or web address] Not available 11/19/2024 10:41:02 Plan of Treatment Reminders Order Date Submit Date Provider Last Modified By Organization Details Last Modified Time Details Appointments Follow Up 2024 01:00P Rosales Margarita Darren, ASSISTED LIVING ASSISTANT Not available Not available Not available Lab HbA1c (hemoglob in A1c), blood 2024 025 ef[facility]man [facility], [address], [address], [place], [address], 11/19/2024 12:07:23 C reactive protein, QN, serum or plasma 2024 025 efryman [facility], [address], [address], [place], [address], 11/19/2024 12:07:23 erythrocy te sedimenta tion rate by madison porras 2024 025 efryman [facility], [address], [address], [place], [address], 11/19/2024 12:07:23 CMP, serum or plasma 2024 025 efryman [facility], [address], [address], [place], [address], 11/19/2024 12:07:23 CBC w/ auto diff 2024 025 efryman [facility], [address], [address], [place], [address], 11/19/2024 12:07:23 lipid panel, serum 2024 025 efryman [facility], [address], [address], [place], [address], 11/19/2024 12:07:23 glucose, fingersti ck, blood 2024 025 [facility], [address] [place] [address], [phone], 11/19/2024 16:25:32 glucose, fingersti ck, blood 2024 025 [facility], [address] [place] [address], [id number], 11/19/2024 16:25:32 TSH + free T4, serum 2024 025 [facility], [address], [address], [place], [address], 11/19/2024 12:07:23 urinalysi s, dipstick [address] [facility], [address] [place] [address], [phone], 10/08/2024 14:10:34 infectiou s disease panel 2024 025 [facility], [address], [place], [address], 10/11/2024 07:49:41 vaginal pathogens panel, ERNESTINA+probe , vaginal fluid 2024 025 HASTY [facility], [address], [address], [place], [address], 09/30/2024 01:06:56 urinalysi s, dipstick 2024 025 [facility], [address] [place] [address], [phone], 09/27/2024 14:06:26 culture, urine 2024 025 HASTY [facility], [address], [address], [place], [address], 09/30/2024 01:06:56 drug screen, urine 2024 025 [facility], [address] [place] [address], [phone], 09/02/2024 15:04:12 urinalysi s, dipstick [email or web address] [facility], [address] [place] [address], [phone], 08/24/2024 11:24:26 infectiou s disease panel 2024 025 HASTY [facility], [address], [place], [address], 08/27/2024 11:27:26 Referral podiatris t referral 2024 025 [place] [address] Lucia Pelletier DPM, [address] [place] [address] [address], [place], [address], 11/19/2024 13:47:[address] referral - [facility], [address] [place] [address], [place], [address], 11/22/2024 09:30:46 Procedures None recorded. Surgeries None recorded. Imaging XR, foot, 3 or more view [address] (X-Ray), [address] [place], [place] [address], [place], [address], 11/19/2024 13:47:54 electroca rdiogram 2024 025 [facility], [address] [place] [address], [phone], 11/19/2024 16:58:29 Medication Orders allopurin ol 100 mg tablet 2024 [facility], [address] [place] [address], [id number], 11/19/2024 12:07:23 doxycycli ne hyclate 100 mg tablet 2024 [facility], [address] [place] [address], [id number], 11/20/2024 12:02:51 Normal Saline Flush 0.9 % injection syringe 2024 [facility], [address] [place] [address], [id number], 11/19/2024 16:25:32 sodium chloride 0.9 % intraveno us solution 2024 [facility], [address] [place] [address], [id number], 11/19/2024 16:25:32 estradiol 0.01% (0.1 mg/gram) vaginal cream 2024 [facility], [address] [place] [address], [id number], 10/08/2024 14:10:36 methenami ne hippurate 1 gram tablet 2024 [facility], [address] [place] [address], [id number], 10/08/2024 14:11:40 benzonata te 100 mg capsule [email or web address] [place] [address] [facility], [address] [place] [address], [id number], 10/08/2024 13:34:31 gabapenti n 600 mg tablet 2024 025 [facility], [address] [place] [address], [place], [address], 09/02/2024 14:37:07 Patient TargetsNo targets recorded. Patient Instructions Encounter Date Encounter Id Patient Instructions Last Modified By Organization Details Last Modified Time 08/24/2024 [id number] high blood pressure: care instructions Not available [...] care instructions Not available 08/24/2024 11:24:26 10/08/2024 [id number] high blood pressure: care instructions Not available [...] disease: care instructions Not available 10/08/2024 14:10:34 11/19/2024 [id number] advance directives: care instructions efryman Not available 11/19/2024 12:07:23 learning about depression efryman Not available 11/19/2024 12:07:23 preventing falls : care instructions efryman Not available 11/19/2024 12:07:23 medicare preventive services guide efryman Not available 11/19/2024 12:07:23 Reason for Referral Haulage Boss Referral for Ulce r of toe due to type 2 diabetes mellitus Referring Physician: Dylan Lebron [facility], Encounter Date: 11/19/2024 Neurologist Referral for Imp aired cognition memory clinic Referring Physician: Dylan Lebron [facility], Encounter Date: 11/19/2024 Results Created Date Observation Date Name Description Value Unit Range Abnormal Flag Note LastModifiedBy Organization Detail LastModifiedTime 08/25/1908/24/2024 MICRO SENSI TIVIT Y abnormal status abnormal Not Available [facility] [address], [place], [address], 08/27/2024 11:27:28 08/25/19 25 08/24/2024 MICRO SENSI TIVIT Y abnormal status high Not Available [facility] [address], [place], [address], 08/27/2024 11:27:28 08/25/19 25 08/24/2024 MICRO SENSI TIVIT Y abnormal status susceptib le Not Available [facility] [address], [place], [address], 08/27/2024 11:27:28 08/25/19 25 08/24/2024 MICRO SENSI TIVIT Y ampicillin <=4 S susceptib le Not Available [facility] [address], [place], [address], 08/27/2024 11:27:28 08/25/19 25 08/24/2024 MICRO SENSI TIVIT Y amikacin <=8 S susceptib le Not Available [facility] [address], [place], [address], 08/27/2024 11:27:28 08/25/19 25 08/24/2024 MICRO SENSI TIVIT Y aztreonam <=2 S susceptib le Not Available [facility] [address], [place], [address], 08/27/2024 11:27:28 08/25/19 25 08/24/2024 MICRO SENSI TIVIT Y ceftazidime <=2 S susceptib le Not Available [facility] [address], [place], [address], 08/27/2024 11:27:28 08/25/19 25 08/24/2024 MICRO SENSI TIVIT Y ciprofloxaci n <=0.25 S susceptib le Not Available [facility] [address], [place], [address], 08/27/2024 11:27:28 08/25/19 25 08/24/2024 MICRO SENSI TIVIT Y ceftriaxone <=1 S susceptib le Not Available [facility] [address], [place], [address], 08/27/2024 11:27:28 08/25/19 25 08/24/2024 MICRO SENSI TIVIT Y cefepime <=1 S susceptib le Not Available [facility] [address], [place], [address], 08/27/2024 11:27:28 08/25/19 25 08/24/2024 MICRO SENSI TIVIT Y nitrofuranto in <=16 S susceptib le Not Available [facility] [address], [place], [address], 08/27/2024 11:27:28 08/25/19 25 08/24/2024 MICRO SENSI TIVIT Y gentamicin <=2 S susceptib le Not Available [facility] [address], [place], [address], 08/27/2024 11:27:28 08/25/19 25 08/24/2024 MICRO SENSI TIVIT Y levofloxacin <=0.5 S susceptib le Not Available [facility] [address], [place], [address], 08/27/2024 11:27:28 08/25/19 25 08/24/2024 MICRO SENSI TIVIT Y meropenem <=0.5 S susceptib le Not Available [facility] [address], [place], [address], 08/27/2024 11:27:28 08/25/19 25 08/24/2024 MICRO SENSI TIVIT Y tobramycin <=2 S susceptib le Not Available [facility] [address], [place], [address], 08/27/2024 11:27:28 08/25/19 25 08/24/2024 MICRO SENSI TIVIT Y ampicillin/s ulbactam 4/2 S susceptib le Not Available [facility] [address], [place], [address], 08/27/2024 11:27:28 08/25/19 25 08/24/2024 MICRO SENSI TIVIT Y trimethoprim /sulfamethox azole <=0.5/ 9.5 S susceptib le Not Available [facility] [address], [place], [address], 08/27/2024 11:27:28 08/25/19 25 08/24/2024 MICRO SENSI TIVIT Y tetracycline <=2 S susceptib le Not Available [facility] [address], [place], [address], 08/27/2024 11:27:28 08/25/19 25 08/24/2024 MICRO SENSI TIVIT Y piperacillin /tazobactam <=2/4 S susceptib le Not Available [facility] [address], [place], [address], 08/27/2024 11:27:28 08/25/19 25 08/24/2024 MICRO SENSI TIVIT Y ertapenem <=0.25 S susceptib le Not Available [facility] [address], [place], [address], 08/27/2024 11:27:28 08/25/19 25 08/24/2024 MICRO SENSI TIVIT Y organism Esch. coli Not Available [facility] [address], [place], [address], 08/27/2024 11:27:28 08/25/19 25 08/24/2024 RESIS TANCE MARKE RS ampc resistance marker Not Detect ed normal Not Available [facility] [address], [place], [address], 08/27/2024 11:27:27 08/25/19 25 08/24/2024 RESIS TANCE MARKE RS carbapenem resistance markers Not Detect ed normal Not Available [facility] [address], [place], [address], 08/27/2024 11:27:27 08/25/19 25 08/24/2024 RESIS TANCE MARKE RS esbl resistance markers Not Detect ed normal Not Available [facility] [address], [place], [address], 08/27/2024 11:27:27 08/25/19 25 08/24/2024 RESIS TANCE MARKE RS macrolide resistance markers Detect ed abnormal Not Available [facility] [address], [place], [address], 08/27/2024 11:27:27 08/25/19 25 08/24/2024 RESIS TANCE MARKE RS quinolone resistance markers Not Detect ed normal Not Available [facility] [address], [place], [address], 08/27/2024 11:27:27 08/25/19 25 08/24/2024 CODY HERCULES vancomycin resistance markers Not Detect ed normal Not Available [facility] [address], [place], [address], 08/27/2024 11:27:27 08/25/19 25 08/25/2024 UTI ID PANEL COMPL ETE, PCR garry albicans Not Detect ed not detect ed normal Not Available [facility] [address], [place], [address], 08/27/2024 11:27:26 08/25/19 25 08/25/2024 UTI ID PANEL COMPL ETE, PCR garry glabrata Not Detect ed not detect ed normal Not Available [facility] [address], [place], [address], 08/27/2024 11:27:26 08/25/19 25 08/25/2024 UTI ID PANEL COMPL ETE, PCR garry krusei Not Detect ed not detect ed normal Not Available [facility] [address], [place], [address], 08/27/2024 11:27:26 08/25/19 25 08/25/2024 UTI ID PANEL COMPL ETE, PCR garry lusitaniae Not Detect ed not detect ed normal Not Available [facility] [address], [place], [address], 08/27/2024 11:27:26 08/25/19 25 08/25/2024 UTI ID PANEL COMPL ETE, PCR garry parapsilosis Not Detect ed not detect ed normal Not Available [facility] [address], [place], [address], 08/27/2024 11:27:26 08/25/19 25 08/25/2024 UTI ID PANEL COMPL ETE, PCR garry tropicalis Not Detect ed not detect ed normal Not Available [facility] [address], [place], [address], 08/27/2024 11:27:26 08/25/19 25 08/25/2024 UTI ID PANEL COMPL ETE, PCR enterobacter cloacae Not Detect ed not detect ed normal Not Available [facility] [address], [place], [address], 08/27/2024 11:27:26 08/25/19 25 08/25/2024 UTI ID PANEL COMPL ETE, PCR enterococcus faecalis High not detect ed high Not Available [facility] [address], [place], [address], 08/27/2024 11:27:26 08/25/19 25 08/25/2024 UTI ID PANEL COMPL ETE, PCR escherichia coli High not detect ed high Not Available [facility] [address], [place], [address], 08/27/2024 11:27:26 08/25/19 25 08/25/2024 UTI ID PANEL COMPL ETE, PCR klebsiella oxytoca Not Detect ed not detect ed normal Not Available [facility] [address], [place], [address], 08/27/2024 11:27:26 08/25/19 25 08/25/2024 UTI ID PANEL COMPL ETE, PCR klebsiella pneumoniae Not Detect ed not detect ed normal Not Available [facility] [address], [place], [address], 08/27/2024 11:27:26 08/25/19 25 08/25/2024 UTI ID PANEL COMPL ETE, PCR morganella morganii Not Detect ed not detect ed normal Not Available [facility] [address], [place], [address], 08/27/2024 11:27:26 08/25/19 25 08/25/2024 UTI ID PANEL COMPL ETE, PCR mycoplasma hominis Not Detect ed not detect ed normal Not Available [facility] [address], [place], [address], 08/27/2024 11:27:26 08/25/19 25 08/25/2024 UTI ID PANEL COMPL ETE, PCR proteus mirabilis Not Detect ed not detect ed normal Not Available [facility] [address], [place], [address], 08/27/2024 11:27:26 08/25/19 25 08/25/2024 UTI ID PANEL COMPL ETE, PCR providencia stuartii Not Detect ed not detect ed normal Not Available [facility] [address], [place], [address], 08/27/2024 11:27:26 08/25/19 25 08/25/2024 UTI ID PANEL COMPL ETE, PCR pseudomonas aeruginosa Not Detect ed not detect ed normal Not Available [facility] [address], [place], [address], 08/27/2024 11:27:26 08/25/19 25 08/25/2024 UTI ID PANEL COMPL ETE, PCR serratia marcescens Not Detect ed not detect ed normal Not Available [facility] [address], [place], [address], 08/27/2024 11:27:26 08/25/19 25 08/25/2024 UTI ID PANEL COMPL ETE, PCR staphylococc us aureus - wound & urine Not Detect ed not detect ed normal Not Available [facility] [address], [place], [address], 08/27/2024 11:27:26 08/25/19 25 08/25/2024 UTI ID PANEL COMPL ETE, PCR staphylococc us saprophyticu s Not Detect ed not detect ed normal Not Available [facility] [address], [place], [address], 08/27/2024 11:27:26 08/25/19 25 08/25/2024 UTI ID PANEL COMPL ETE, PCR streptococcu s agalactiae Not Detect ed not detect ed normal Not Available [facility] [address], [place], [address], 08/27/2024 11:27:26 08/25/19 25 08/25/2024 UTI ID PANEL COMPL ETE, PCR ureaplasma urealyticum Not Detect ed not detect ed normal Not Available [facility] [address], [place], [address], 08/27/2024 11:27:26 08/25/19 25 08/26/2024 UTI ID PANEL COMPL ETE, PCR growth 24 Growth abnormal @24 Hours Gram Negat paul Growt h, Not Available [facility] [address], [place], [address], 08/27/2024 11:27:26 08/25/19 25 08/24/2024 urina lysis , dipst ick Leukocytes Small Not Available [facility] [address] [place], [address], 08/20/2024 14:52:57 08/25/19 25 08/24/2024 urina lysis , dipst ick Nitrite negati ve Not Available [facility] [address] [place], [address], 08/20/2024 14:52:57 08/25/19 25 08/24/2024 urina lysis , dipst ick Urobilinogen .[address] [facility] [address] [place], [address], 08/20/2024 14:52:57 08/25/19 25 08/24/2024 urina lysis , dipst ick Protein 100 Not Available [facility] [address] [place], [address], 08/20/2024 14:52:57 08/25/19 25 08/24/2024 urina lysis , dipst ick pH 6.0 Not Available [facility] [address] [place], [address], 08/20/2024 14:52:57 08/25/19 25 08/24/2024 urina lysis , dipst ick Blood Modera te Not Available [facility] [address] [place], [address], 08/20/2024 14:52:57 08/25/19 25 08/24/2024 urina lysis , dipst ick Specific [facility] 1.020 Not Available [facility] [address] [place], [address], 08/20/2024 14:52:57 08/25/19 25 08/24/2024 urina lysis , dipst ick Ketone Negati ve Not Available [facility] [address] [place], [address], 08/20/2024 14:52:57 08/25/19 25 08/24/2024 urina lysis , dipst ick Bilirubin Negati ve Not Available [facility] [address] [place], [address], 08/20/2024 14:52:57 08/25/19 25 08/24/2024 urina lysis , dipst ick Glucose Negati ve Not Available [facility] [address] [place], [address], 08/20/2024 14:52:57 08/25/19 25 08/24/2024 urina lysis , dipst ick Appearance Cloudy Not Available [facility] [address] [place], [address], 08/20/2024 14:52:57 08/25/19 25 08/24/2024 urina lysis , dipst ick Color Yellow Not Available [facility] [address] [place], [address], 08/20/2024 14:52:57 09/03/19 25 09/02/2024 drug scree n, urine THC negati ve Not Available [address], [address], 09/02/2024 14:36:30 09/03/19 25 09/02/2024 drug scree n, urine TCA negati ve Not Available [address], [address], 09/02/2024 14:36:30 09/03/19 25 09/02/2024 drug scree n, urine BAR negati ve Not Available [address], [address], 09/02/2024 14:36:30 09/03/19 25 09/02/2024 drug scree n, urine BZO negati ve Not Available [address], [address], 09/02/2024 14:36:30 09/03/19 25 09/02/2024 drug scree n, urine MTD negati ve Not Available [address], [address], 09/02/2024 14:36:30 09/03/19 25 09/02/2024 drug scree n, urine AMP negati ve Not Available [address], [address], 09/02/2024 14:36:30 09/03/19 25 09/02/2024 drug scree n, urine MOP negati ve Not Available [address], [address], 09/02/2024 14:36:30 09/03/19 25 09/02/2024 drug scree n, urine OXY negati ve Not Available [address], [address], 09/02/2024 14:36:30 09/03/19 25 09/02/2024 drug scree n, urine MDMA negati ve Not Available [address], [address], 09/02/2024 14:36:30 09/03/19 25 09/02/2024 drug scree n, urine BULMARO negati ve Not Available [address], [address], 09/02/2024 14:36:30 09/03/19 25 09/02/2024 drug scree n, urine PCP negati ve Not Available [address], [address], 09/02/2024 14:36:30 09/03/19 25 09/02/2024 drug scree n, urine MET negati ve Not Available [address], [address], 09/02/2024 14:36:30 09/11/19 25 09/11/2024 UTI ID PANEL COMPL ETE, PCR garry albicans Not Detect ed not detect ed normal Not Available [facility] [address], [place], [address], 09/11/2024 15:16:33 09/11/19 25 09/11/2024 UTI ID PANEL COMPL ETE, PCR garry glabrata Not Detect ed not detect ed normal Not Available [facility] [address], [place], [address], 09/11/2024 15:16:33 09/11/19 25 09/11/2024 UTI ID PANEL COMPL ETE, PCR garry krusei Not Detect ed not detect ed normal Not Available [facility] [address], [place], [address], 09/11/2024 15:16:33 09/11/19 25 09/11/2024 UTI ID PANEL COMPL ETE, PCR garry lusitaniae Not Detect ed not detect ed normal Not Available [facility] [address], [place], [address], 09/11/2024 15:16:33 09/11/19 25 09/11/2024 UTI ID PANEL COMPL ETE, PCR garry parapsilosis Not Detect ed not detect ed normal Not Available [facility] [address], [place], [address], 09/11/2024 15:16:33 09/11/19 25 09/11/2024 UTI ID PANEL COMPL ETE, PCR garry tropicalis Not Detect ed not detect ed normal Not Available [facility] [address], [place], [address], 09/11/2024 15:16:33 09/11/19 25 09/11/2024 UTI ID PANEL COMPL ETE, PCR enterobacter cloacae Not Detect ed not detect ed normal Not Available [facility] [address], [place], [address], 09/11/2024 15:16:33 09/11/19 25 09/11/2024 UTI ID PANEL COMPL ETE, PCR enterococcus faecalis Not Detect ed not detect ed normal Not Available [facility] [address], [place], [address], 09/11/2024 15:16:33 09/11/19 25 09/11/2024 UTI ID PANEL COMPL ETE, PCR escherichia coli Not Detect ed not detect ed normal Not Available [facility] [address], [place], [address], 09/11/2024 15:16:33 09/11/19 25 09/11/2024 UTI ID PANEL COMPL ETE, PCR klebsiella oxytoca Not Detect ed not detect ed normal Not Available [facility] [address], [place], [address], 09/11/2024 15:16:33 09/11/19 25 09/11/2024 UTI ID PANEL COMPL ETE, PCR klebsiella pneumoniae Not Detect ed not detect ed normal Not Available [facility] [address], [place], [address], 09/11/2024 15:16:33 09/11/19 25 09/11/2024 UTI ID PANEL COMPL ETE, PCR morganella morganii Not Detect ed not detect ed normal Not Available [facility] [address], [place], [address], 09/11/2024 15:16:33 09/11/19 25 09/11/2024 UTI ID PANEL COMPL ETE, PCR mycoplasma hominis Not Detect ed not detect ed normal Not Available [facility] [address], [place], [address], 09/11/2024 15:16:33 09/11/19 25 09/11/2024 UTI ID PANEL COMPL ETE, PCR proteus mirabilis Not Detect ed not detect ed normal Not Available [facility] [address], [place], [address], 09/11/2024 15:16:33 09/11/19 25 09/11/2024 UTI ID PANEL COMPL ETE, PCR providencia stuartii Not Detect ed not detect ed normal Not Available [facility] [address], [place], [address], 09/11/2024 15:16:33 09/11/19 25 09/11/2024 UTI ID PANEL COMPL ETE, PCR pseudomonas aeruginosa Not Detect ed not detect ed normal Not Available [facility] [address], [place], [address], 09/11/2024 15:16:33 09/11/19 25 09/11/2024 UTI ID PANEL COMPL ETE, PCR serratia marcescens Not Detect ed not detect ed normal Not Available [facility] [address], [place], [address], 09/11/2024 15:16:33 09/11/19 25 09/11/2024 UTI ID PANEL COMPL ETE, PCR staphylococc us aureus - wound & urine Not Detect ed not detect ed normal Not Available [facility] [address], [place], [address], 09/11/2024 15:16:33 09/11/19 25 09/11/2024 UTI ID PANEL COMPL ETE, PCR staphylococc us saprophyticu s Not Detect ed not detect ed normal Not Available [facility] [address], [place], [address], 09/11/2024 15:16:33 09/11/19 25 09/11/2024 UTI ID PANEL COMPL ETE, PCR streptococcu s agalactiae Not Detect ed not detect ed normal Not Available [facility] [address], [place], [address], 09/11/2024 15:16:33 09/11/19 25 09/11/2024 UTI ID PANEL COMPL ETE, PCR ureaplasma urealyticum Not Detect ed not detect ed normal Not Available [facility] [address], [place], [address], 09/11/2024 15:16:33 09/28/19 25 09/28/2024 NUSWA B VAGIN ITIS PLUS (VG+) atopobium vaginae LOW - 0 score Not Available [facility] ([facility]) [address] [place], [address], 09/30/2024 01:06:56 09/28/19 25 09/28/2024 NUSWA B VAGIN ITIS PLUS (VG+) bvab 2 LOW - 0 score Not Available [facility] ([facility]) [address] [place], [address], 09/30/2024 01:06:56 09/28/19 25 09/28/2024 NUSWA B VAGIN ITIS PLUS (VG+) megasphaera 1 [...] prese nce of BV. Not Available [facility] ([facility]) [address] [place], [address], 09/30/2024 01:06:56 09/28/19 25 09/28/2024 NUA B VAGIN ITIS PLUS (VG+) garry albicans, ERNESTINA NEGATI VE negati ve Not Available [facility] [facility] [address] [place], [address], 09/30/2024 01:06:56 09/28/19 25 09/28/2024 NUA B VAGIN ITIS PLUS (VG+) garry glabrata, ERNESTINA NEGATI VE negati ve Not Available [facility] ([facility]) [address] [place], [address], 09/30/2024 01:06:56 09/28/19 25 09/29/2024 NUA B VAGIN ITIS PLUS (VG+) trich vag by ERNESTINA NEGATI VE negati ve Not Available [facility] ([facility]) [address] [place], [address], 09/30/2024 01:06:56 09/28/19 25 09/29/2024 NUSWA B VAGIN ITIS PLUS (VG+) chlamydia trachomatis, ERNESTINA NEGATI VE negati ve Not Available [facility] ([facility]) [address] [facility], [place], [address], 09/30/2024 01:06:56 09/28/19 25 09/29/2024 NUSWA B VAGIN ITIS PLUS (VG+) neisseria gonorrhoeae, ERNESTINA NEGATI VE negati ve Not Available [facility] ([facility]) [address] [facility], [place], [address], 09/30/2024 01:06:56 09/28/19 25 09/30/2024 URINE CULTU RE, ROUTI NE urine culture, routine FINAL REPORT abnormal Not Available [facility] ([facility]) [address] [facility], [place], [address], 09/30/2024 01:06:56 09/28/19 25 09/30/2024 URINE CULTU [...] (exce pt for high- level resis tance scree ham) , cepha lospo rins, clind amyci n, [...] by Enter ococc us. Not Available [facility] ([facility]) [address] [facility], [place], [address], 09/30/2024 01:06:56 09/28/19 25 09/30/2024 URINE CULTU [...] R Vanco mycin S Not Available [facility] ([facility]) [address] [facility], [place], [address], 09/30/2024 01:06:56 09/28/19 25 09/27/2024 urina lysis , dipst ick Leukocytes Small Not Available [address], [address], 09/27/2024 11:53:59 09/28/19 25 09/27/2024 urina lysis , dipst ick Nitrite negati ve Not Available [address], [address], 09/27/2024 11:53:59 09/28/19 25 09/27/2024 urina lysis , dipst ick Urobilinogen .2 Not Available [facility] [address], [address], 09/27/2024 11:53:59 09/28/19 25 09/27/2024 urina lysis , dipst ick Protein 300 Not Available [address], [address], 09/27/2024 11:53:59 09/28/19 25 09/27/2024 urina lysis , dipst ick pH 5.5 Not Available [address], [address], 09/27/2024 11:53:59 09/28/19 25 09/27/2024 urina lysis , dipst ick Blood Non-He molyze d: Trace Not Available [address], [address], 09/27/2024 11:53:59 09/28/19 25 09/27/2024 urina lysis , dipst ick Specific [facility] 1.030 Not Available [address], [address], 09/27/2024 11:53:59 09/28/19 25 09/27/2024 urina lysis , dipst ick Ketone Negati ve Not Available [address], [address], 09/27/2024 11:53:59 09/28/19 25 09/27/2024 urina lysis , dipst ick Bilirubin Negati ve Not Available [address], [address], 09/27/2024 11:53:59 09/28/19 25 09/27/2024 urina lysis , dipst ick Glucose Negati ve Not Available [address], [address], 09/27/2024 11:53:59 09/28/19 25 09/27/2024 urina lysis , dipst ick Appearance Clear Not Available [address], [address], 09/27/2024 11:53:59 09/28/19 25 09/27/2024 urina lysis , dipst ick Color Yellow Not Available [address], [address], 09/27/2024 11:53:59 10/09/19 25 10/08/2024 MICRO SENSI TIVIT Y abnormal status abnormal Not Available [facility] [address], [place], [address], 10/11/2024 07:49:43 10/09/19 25 10/08/2024 MICRO SENSI TIVIT Y abnormal status high Not Available [facility] [address], [place], [address], 10/11/2024 07:49:43 10/09/19 25 10/08/2024 MICRO SENSI TIVIT Y abnormal status resistant Not Available [facility] [address], [place], [address], 10/11/2024 07:49:43 10/09/19 25 10/08/2024 MICRO SENSI TIVIT Y abnormal status susceptib le Not Available [facility] [address], [place], [address], 10/11/2024 07:49:43 10/09/19 25 10/08/2024 MICRO SENSI TIVIT Y ampicillin 16 R resistant Not Available [facility] [address], [place], [address], 10/11/2024 07:49:42 10/09/19 25 10/08/2024 MICRO SENSI TIVIT Y amikacin <=8 S susceptib le Not Available [facility] [address], [place], [address], 10/11/2024 07:49:42 10/09/19 25 10/08/2024 MICRO SENSI TIVIT Y aztreonam <=2 S susceptib le Not Available [facility] [address], [place], [address], 10/11/2024 07:49:42 10/09/19 25 10/08/2024 MICRO SENSI TIVIT Y ceftazidime <=2 S susceptib le Not Available [facility] [address], [place], [address], 10/11/2024 07:49:42 10/09/19 25 10/08/2024 MICRO SENSI TIVIT Y ciprofloxaci n <=0.25 S susceptib le Not Available [facility] [address], [place], [address], 10/11/2024 07:49:42 10/09/19 25 10/08/2024 MICRO SENSI TIVIT Y ceftriaxone <=1 S susceptib le Not Available [facility] [address], [place], [address], 10/11/2024 07:49:42 10/09/19 25 10/08/2024 MICRO SENSI TIVIT Y cefepime <=1 S susceptib le Not Available [facility] [address], [place], [address], 10/11/2024 07:49:42 10/09/19 25 10/08/2024 MICRO SENSI TIVIT Y nitrofuranto in 32 S susceptib le Not Available [facility] [address], [place], [address], 10/11/2024 07:49:42 10/09/19 25 10/08/2024 MICRO SENSI TIVIT Y gentamicin <=2 S susceptib le Not Available [facility] [address], [place], [address], 10/11/2024 07:49:42 10/09/19 25 10/08/2024 MICRO SENSI TIVIT Y levofloxacin <=0.5 S susceptib le Not Available [facility] [address], [place], [address], 10/11/2024 07:49:42 10/09/19 25 10/08/2024 MICRO SENSI TIVIT Y meropenem <=0.5 S susceptib le Not Available [facility] [address], [place], [address], 10/11/2024 07:49:42 10/09/19 25 10/08/2024 MICRO SENSI TIVIT Y tobramycin <=2 S susceptib le Not Available [facility] [address], [place], [address], 10/11/2024 07:49:42 10/09/19 25 10/08/2024 MICRO SENSI TIVIT Y ampicillin/s ulbactam 8/4 S susceptib le Not Available [facility] [address], [place], [address], 10/11/2024 07:49:42 10/09/19 25 10/08/2024 MICRO SENSI TIVIT Y trimethoprim /sulfamethox azole <=0.5/ 9.5 S susceptib le Not Available [facility] [address], [place], [address], 10/11/2024 07:49:42 10/09/19 25 10/08/2024 MICRO SENSI TIVIT Y tetracycline <=2 S susceptib le Not Available [facility] [address], [place], [address], 10/11/2024 07:49:42 10/09/19 25 10/08/2024 MICRO SENSI TIVIT Y piperacillin /tazobactam 4/4 S susceptib le Not Available [facility] [address], [place], [address], 10/11/2024 07:49:42 10/09/19 25 10/08/2024 MICRO SENSI TIVIT Y ertapenem <=0.25 S susceptib le Not Available [facility] [address], [place], [address], 10/11/2024 07:49:42 10/09/19 25 10/08/2024 MICRO SENSI TIVIT Y organism Kleb. pneumo . ssp pneu. Not Available [facility] [address], [place], [address], 10/11/2024 07:49:42 10/09/19 25 10/08/2024 RESIS TANCE MARKE RS ampc resistance marker Not Detect ed normal Not Available [facility] [address], [place], [address], 10/11/2024 07:49:42 10/09/19 25 10/08/2024 RESIS TANCE MARKE RS carbapenem resistance markers Not Detect ed normal Not Available [facility] [address], [place], [address], 10/11/2024 07:49:42 10/09/19 25 10/08/2024 RESIS TANCE MARKE RS esbl resistance markers Detect ed abnormal Not Available [facility] [address], [place], [address], 10/11/2024 07:49:42 10/09/19 25 10/08/2024 RESIS TANCE MARKE RS quinolone resistance markers Not Detect ed normal Not Available [facility] [address], [place], [address], 10/11/2024 07:49:42 10/09/19 25 10/09/2024 UTI ID PANEL COMPL ETE, PCR garry albicans Not Detect ed not detect ed normal Not Available [facility] [address], [place], [address], 10/11/2024 07:49:41 10/09/19 25 10/09/2024 UTI ID PANEL COMPL ETE, PCR garry glabrata Not Detect ed not detect ed normal Not Available [facility] [address], [place], [address], 10/11/2024 07:49:41 10/09/19 25 10/09/2024 UTI ID PANEL COMPL ETE, PCR garry krusei Not Detect ed not detect ed normal Not Available [facility] [address], [place], [address], 10/11/2024 07:49:41 10/09/19 25 10/09/2024 UTI ID PANEL COMPL ETE, PCR garry lusitaniae Not Detect ed not detect ed normal Not Available [facility] [address], [place], [address], 10/11/2024 07:49:41 10/09/19 25 10/09/2024 UTI ID PANEL COMPL ETE, PCR garry parapsilosis Not Detect ed not detect ed normal Not Available [facility] [address], [place], [address], 10/11/2024 07:49:41 10/09/19 25 10/09/2024 UTI ID PANEL COMPL ETE, PCR garry tropicalis Not Detect ed not detect ed normal Not Available [facility] [address], [place], [address], 10/11/2024 07:49:41 10/09/19 25 10/09/2024 UTI ID PANEL COMPL ETE, PCR enterobacter cloacae Not Detect ed not detect ed normal Not Available [facility] [address], [place], [address], 10/11/2024 07:49:41 10/09/19 25 10/09/2024 UTI ID PANEL COMPL ETE, PCR enterococcus faecalis Not Detect ed not detect ed normal Not Available [facility] [address], [place], [address], 10/11/2024 07:49:41 10/09/19 25 10/09/2024 UTI ID PANEL COMPL ETE, PCR escherichia coli Not Detect ed not detect ed normal Not Available [facility] [address], [place], [address], 10/11/2024 07:49:41 10/09/19 25 10/09/2024 UTI ID PANEL COMPL ETE, PCR klebsiella oxytoca Not Detect ed not detect ed normal Not Available [facility] [address], [place], [address], 10/11/2024 07:49:41 10/09/19 25 10/09/2024 UTI ID PANEL COMPL ETE, PCR klebsiella pneumoniae High not detect ed high Not Available [facility] [address], [place], [address], 10/11/2024 07:49:41 10/09/19 25 10/09/2024 UTI ID PANEL COMPL ETE, PCR morganella morganii Not Detect ed not detect ed normal Not Available [facility] [address], [place], [address], 10/11/2024 07:49:41 10/09/19 25 10/09/2024 UTI ID PANEL COMPL ETE, PCR mycoplasma hominis Not Detect ed not detect ed normal Not Available [facility] [address], [place], [address], 10/11/2024 07:49:41 10/09/19 25 10/09/2024 UTI ID PANEL COMPL ETE, PCR proteus mirabilis Not Detect ed not detect ed normal Not Available [facility] [address], [place], [address], 10/11/2024 07:49:41 10/09/19 25 10/09/2024 UTI ID PANEL COMPL ETE, PCR providencia stuartii Not Detect ed not detect ed normal Not Available [facility] [address], [place], [address], 10/11/2024 07:49:41 10/09/19 25 10/09/2024 UTI ID PANEL COMPL ETE, PCR pseudomonas aeruginosa Not Detect ed not detect ed normal Not Available [facility] [address], [place], [address], 10/11/2024 07:49:41 10/09/19 25 10/09/2024 UTI ID PANEL COMPL ETE, PCR serratia marcescens Not Detect ed not detect ed normal Not Available [facility] [address], [place], [address], 10/11/2024 07:49:41 10/09/19 25 10/09/2024 UTI ID PANEL COMPL ETE, PCR staphylococc us aureus - wound & urine Not Detect ed not detect ed normal Not Available [facility] [address], [place], [address], 10/11/2024 07:49:41 10/09/19 25 10/09/2024 UTI ID PANEL COMPL ETE, PCR staphylococc us saprophyticu s Not Detect ed not detect ed normal Not Available [facility] [address], [place], [address], 10/11/2024 07:49:41 10/09/19 25 10/09/2024 UTI ID PANEL COMPL ETE, PCR streptococcu s agalactiae Not Detect ed not detect ed normal Not Available [facility] [address], [place], [address], 10/11/2024 07:49:41 10/09/19 25 10/09/2024 UTI ID PANEL COMPL ETE, PCR ureaplasma urealyticum Not Detect ed not detect ed normal Not Available [facility] [address], [place], [address], 10/11/2024 07:49:41 10/09/19 25 10/10/2024 UTI ID PANEL COMPL ETE, PCR growth 24 Growth abnormal @24 Hours Gram Negat paul Growt h, Not Available [facility] [address], [place], [address], 10/11/2024 07:49:41 10/09/19 25 10/08/2024 urina lysis , dipst ick Leukocytes Trace Not Available [facility] [address] [place], [address], 10/04/2024 09:39:08 10/09/19 25 10/08/2024 urina lysis , dipst ick Nitrite negati ve Not Available [facility] [address] [place], [address], 10/04/2024 09:39:08 10/09/19 25 10/08/2024 urina lysis , dipst ick Urobilinogen .[address] [facility] [address] [place], [address], 10/04/2024 09:39:08 10/09/19 25 10/08/2024 urina lysis , dipst ick Protein 100 Not Available [facility] [address] [place], [address], 10/04/2024 09:39:08 10/09/19 25 10/08/2024 urina lysis , dipst ick pH 5.5 Not Available [facility] [address] [place], [address], 10/04/2024 09:39:08 10/09/19 25 10/08/2024 urina lysis , dipst ick Blood Negati ve Not Available [facility] [address] [place], [address], 10/04/2024 09:39:08 10/09/19 25 10/08/2024 urina lysis , dipst ick Specific [facility] 1.030 Not Available [facility] [address] [place], [address], 10/04/2024 09:39:08 10/09/19 25 10/08/2024 urina lysis , dipst ick Ketone Negati ve Not Available [facility] [address] [place], [address], 10/04/2024 09:39:08 10/09/19 25 10/08/2024 urina lysis , dipst ick Bilirubin Negati ve Not Available [facility] [address] [place], [address], 10/04/2024 09:39:08 10/09/19 25 10/08/2024 urina lysis , dipst ick Glucose Negati ve Not Available [facility] [address] [place], [address], 10/04/2024 09:39:08 10/09/19 25 10/08/2024 urina lysis , dipst ick Appearance Clear Not Available [facility] [address] [place], [address], 10/04/2024 09:39:08 10/09/19 25 10/08/2024 urina lysis , dipst ick Color Yellow Not Available [facility] [address] [place], [address], 10/04/2024 09:39:08 10/23/19 25 10/22/2024 MICRO SENSI TIVIT Y abnormal status abnormal Not Available [facility] [address], [place], [address], 10/25/2024 08:35:54 10/23/19 25 10/22/2024 MICRO SENSI TIVIT Y abnormal status high Not Available [facility] [address], [place], [address], 10/25/2024 08:35:54 10/23/19 25 10/22/2024 MICRO SENSI TIVIT Y abnormal status intermedi ate Not Available [facility] [address], [place], [address], 10/25/2024 08:35:54 10/23/19 25 10/22/2024 MICRO SENSI TIVIT Y abnormal status resistant Not Available [facility] [address], [place], [address], 10/25/2024 08:35:54 10/23/19 25 10/22/2024 MICRO SENSI TIVIT Y abnormal status susceptib le Not Available [facility] [address], [place], [address], 10/25/2024 08:35:54 10/23/19 25 10/22/2024 MICRO SENSI TIVIT Y ampicillin >16 R resistant Not Available [facility] [address], [place], [address], 10/25/2024 08:35:53 10/23/1910/22/2024 MICRO SENSI TIVIT Y amikacin <=8 S susceptib le Not Available [facility] [address], [place], [address], 10/25/2024 08:35:53 10/23/1910/22/2024 MICRO SENSI TIVIT Y aztreonam 16 R resistant Not Available [facility] [address], [place], [address], 10/25/2024 08:35:53 10/23/1910/22/2024 MICRO SENSI TIVIT Y ceftazidime 8 intermedi ate Not Available [facility] [address], [place], [address], 10/25/2024 08:35:53 10/23/1910/22/2024 MICRO SENSI TIVIT Y ciprofloxaci n <=0.25 S susceptib le Not Available [facility] [address], [place], [address], 10/25/2024 08:35:53 10/23/19 25 10/22/2024 MICRO SENSI TIVIT Y ceftriaxone 32 R resistant Not Available [facility] [address], [place], [address], 10/25/2024 08:35:53 10/23/19 25 10/22/2024 MICRO SENSI TIVIT Y cefepime 4 intermedi ate Not Available [facility] [address], [place], [address], 10/25/2024 08:35:53 10/23/19 25 10/22/2024 MICRO SENSI TIVIT Y nitrofuranto in <=16 S susceptib le Not Available [facility] [address], [place], [address], 10/25/2024 08:35:53 10/23/19 25 10/22/2024 MICRO SENSI TIVIT Y gentamicin <=2 S susceptib le Not Available [facility] [address], [place], [address], 10/25/2024 08:35:53 10/23/19 25 10/22/2024 MICRO SENSI TIVIT Y levofloxacin <=0.5 S susceptib le Not Available [facility] [address], [place], [address], 10/25/2024 08:35:53 10/23/19 25 10/22/2024 MICRO SENSI TIVIT Y meropenem <=0.5 S susceptib le Not Available [facility] [address], [place], [address], 10/25/2024 08:35:53 10/23/19 25 10/22/2024 MICRO SENSI TIVIT Y tobramycin <=2 S susceptib le Not Available [facility] [address], [place], [address], 10/25/2024 08:35:53 10/23/19 25 10/22/2024 MICRO SENSI TIVIT Y ampicillin/s ulbactam 4/2 S susceptib le Not Available [facility] [address] [place], [address], 10/25/2024 08:35:53 10/23/19 25 10/22/2024 MICRO SENSI TIVIT Y trimethoprim /sulfamethox azole <=0.5/ 9.5 S susceptib le Not Available [facility] [address], [place], [address], 10/25/2024 08:35:53 10/23/19 25 10/22/2024 MICRO SENSI TIVIT Y tetracycline <=2 S susceptib le Not Available [facility] [address], [place], [address], 10/25/2024 08:35:53 10/23/19 25 10/22/2024 MICRO SENSI TIVIT Y piperacillin /tazobactam 4/4 S susceptib le Not Available [facility] [address], [place], [address], 10/25/2024 08:35:53 10/23/19 25 10/22/2024 MICRO SENSI TIVIT Y ertapenem <=0.25 S susceptib le Not Available [facility] [address], [place], [address], 10/25/2024 08:35:53 10/23/19 25 10/22/2024 MICRO SENSI TIVIT Y organism Kleb. pneumo . ssp pneu. Not Available [facility] [address], [place], [address], 10/25/2024 08:35:53 10/23/19 25 10/22/2024 RESIS SVETLANA HERCULES ampc resistance marker Not Detect ed normal Not Available [facility] [address], [place], [address], 10/25/2024 08:35:53 10/23/19 25 10/22/2024 RESIS SVETLANA HERCULES carbapenem resistance markers Not Detect ed normal Not Available [facility] [address], [place], [address], 10/25/2024 08:35:53 10/23/19 25 10/22/2024 RESIS SVETLANA HERCULES esbl resistance markers Detect ed abnormal Not Available [facility] [address], [place], [address], 10/25/2024 08:35:53 10/23/19 25 10/22/2024 RESIS SVETLANA HERCULES quinolone resistance markers Not Detect ed normal Not Available [facility] [address], [place], [address], 10/25/2024 08:35:53 10/23/19 25 10/23/2024 UTI ID PANEL COMPL ETE, PCR garry albicans Not Detect ed not detect ed normal Not Available [facility] [address], [place], [address], 10/25/2024 08:35:52 10/23/19 25 10/23/2024 UTI ID PANEL COMPL ETE, PCR garry glabrata Not Detect ed not detect ed normal Not Available [facility] [address], [place], [address], 10/25/2024 08:35:52 10/23/19 25 10/23/2024 UTI ID PANEL COMPL ETE, PCR garry krusei Not Detect ed not detect ed normal Not Available [facility] [address], [place], [address], 10/25/2024 08:35:52 10/23/19 25 10/23/2024 UTI ID PANEL COMPL ETE, PCR garry lusitaniae Not Detect ed not detect ed normal Not Available [facility] [address], [place], [address], 10/25/2024 08:35:52 10/23/19 25 10/23/2024 UTI ID PANEL COMPL ETE, PCR garry parapsilosis Not Detect ed not detect ed normal Not Available [facility] [address], [place], [address], 10/25/2024 08:35:52 10/23/19 25 10/23/2024 UTI ID PANEL COMPL ETE, PCR garry tropicalis Not Detect ed not detect ed normal Not Available [facility] [address], [place], [address], 10/25/2024 08:35:52 10/23/19 25 10/23/2024 UTI ID PANEL COMPL ETE, PCR enterobacter cloacae Not Detect ed not detect ed normal Not Available [facility] [address], [place], [address], 10/25/2024 08:35:52 10/23/19 25 10/23/2024 UTI ID PANEL COMPL ETE, PCR enterococcus faecalis Not Detect ed not detect ed normal Not Available [facility] [address], [place], [address], 10/25/2024 08:35:52 10/23/19 25 10/23/2024 UTI ID PANEL COMPL ETE, PCR escherichia coli Not Detect ed not detect ed normal Not Available [facility] [address], [place], [address], 10/25/2024 08:35:52 10/23/19 25 10/23/2024 UTI ID PANEL COMPL ETE, PCR klebsiella oxytoca Not Detect ed not detect ed normal Not Available [facility] [address], [place], [address], 10/25/2024 08:35:52 10/23/1910/23/2024 UTI ID PANEL COMPL ETE, PCR klebsiella pneumoniae High not detect ed high Not Available [facility] [address], [place], [address], 10/25/2024 08:35:52 10/23/19 25 10/23/2024 UTI ID PANEL COMPL ETE, PCR morganella morganii Not Detect ed not detect ed normal Not Available [facility] [address], [place], [address], 10/25/2024 08:35:52 10/23/19 25 10/23/2024 UTI ID PANEL COMPL ETE, PCR mycoplasma hominis Not Detect ed not detect ed normal Not Available [facility] [address], [place], [address], 10/25/2024 08:35:52 10/23/19 25 10/23/2024 UTI ID PANEL COMPL ETE, PCR proteus mirabilis Not Detect ed not detect ed normal Not Available [facility] [address], [place], [address], 10/25/2024 08:35:52 10/23/19 25 10/23/2024 UTI ID PANEL COMPL ETE, PCR providencia stuartii Not Detect ed not detect ed normal Not Available [facility] [address], [place], [address], 10/25/2024 08:35:52 10/23/19 25 10/23/2024 UTI ID PANEL COMPL ETE, PCR pseudomonas aeruginosa Not Detect ed not detect ed normal Not Available [facility] [address], [place], [address], 10/25/2024 08:35:52 10/23/19 25 10/23/2024 UTI ID PANEL COMPL ETE, PCR serratia marcescens Not Detect ed not detect ed normal Not Available [facility] [address], [place], [address], 10/25/2024 08:35:52 10/23/19 25 10/23/2024 UTI ID PANEL COMPL ETE, PCR staphylococc us aureus - wound & urine Not Detect ed not detect ed normal Not Available [facility] [address], [place], [address], 10/25/2024 08:35:52 10/23/19 25 10/23/2024 UTI ID PANEL COMPL ETE, PCR staphylococc us saprophyticu s Not Detect ed not detect ed normal Not Available [facility] [address], [place], [address], 10/25/2024 08:35:52 10/23/19 25 10/23/2024 UTI ID PANEL COMPL ETE, PCR streptococcu s agalactiae Not Detect ed not detect ed normal Not Available [facility] [address], [place], [address], 10/25/2024 08:35:52 10/23/19 25 10/23/2024 UTI ID PANEL COMPL ETE, PCR ureaplasma urealyticum Not Detect ed not detect ed normal Not Available [facility] [address], [place], [address], 10/25/2024 08:35:52 10/23/19 25 10/24/2024 UTI ID PANEL COMPL ETE, PCR growth 24 Growth abnormal @24 Hours Gram Negat paul Growt h, Not Available [facility] [address], [place], [address], 10/25/2024 08:35:52 11/20/19 25 11/19/2024 gluco se, finge rstic k, blood Blood Glucose: mg/dl 118 Not Available [address], [id number], 11/19/2024 15:35:59 11/20/19 25 11/19/2024 gluco se, finge rstic k, blood Reference Range (60-100) abnorm al Not Available [address], [address], 11/19/2024 15:35:59 11/20/19 25 11/19/2024 gluco se, finge rstic k, blood Blood Glucose: mg/dl 150 Not Available [address], [address], 11/19/2024 15:35:37 11/20/19 25 11/19/2024 gluco se, finge rstic k, blood Reference Range (60-100) abnorm al Not Available [address], [place], [address], 11/19/2024 15:35:37 08/04/19 [place], retro perit oneum , compl ete No observ ation record ed. [email or web address] Not Available 16:35:31 11/20/19 25 11/19/2024 elect rocar diogr am No observ ation record ed. efryman [address], [place], [address], 11/19/2024 16:58:35 11/20/19 25 11/19/2024 elect rocar diogr am No observ ation record ed[facility] [address], [place], [address], 11/22/2024 09:08:29 Result Notes None recorded. Problems Name Problem SNOMED Code Status Onset Date Resolution Date Notes Provider Name and Address Organization Details Recorded Time Type 2 diabetes mellitus 58143673 Active 2021 Dylan Lebron APRN [address], [place], [address], [place] [facility] 10:07:29 Hypertensive disorder 78117775 Active 2021 Dylan Lebron APRN [address], [place], [address], [place] [facility] 10:07:09 Hypercholester olemia 53074246 Active 2021 Dylan Lebron APRN [address], [place], [address], [place] [facility] 10:07:05 Gastroesophage al reflux disease 521301039 Active 2021 Dylan Lebron APRN [address], [place], [address], [place] [facility] 10:06:49 Hypothyroidism 46468963 Active 2021 Dylan Lebron, ASSISTED LIVING ASSISTANT [address], [place], [address], [place] [facility] 10:07:12 Neuropathy 066262619 Active 2021 Dylan Lebron, ASSISTED LIVING ASSISTANT [address], [place], [address] [facility] 10:07:19 Arthritis 9104802 Active 2021 Dylan Lebron, ASSISTED LIVING ASSISTANT [address], [place], [address], [place] [facility] 2 10:06:47 Coronary arterioscleros is 56835406 Active 2021 Dylan Lebron, ASSISTED LIVING ASSISTANT [address], [place], [address] [facility] 10:18:21 Coronary artery bypass grafts x 3 Active 2021 Dylan Lebron, ASSISTED LIVING ASSISTANT [address], [place], [address], [place] [facility] 10:18:34 Problem Notes None recorded. Procedures Surgical History Date Name Laterality Status Provider Name and Address Organization Details Recorded Time 025 Advance Care Planning completed Fina Vasquez [place] - [facility] 11/19/2024 10:41:02 025 IV Infusion completed Fina Vas[place] - [facility] 11/19/2024 15:44:19 025 Functional Status Assessed completed Fina Vasquez [place] - [facility] 11/19/2024 10:41:02 024 Date of Last Colonoscopy completed Dia Youssef [place] - [facility] 2024 13:27:50 024 Medication Reconcilliation completed Fina Vasquez [place] - [facility] 12/02/2023 10:36:18 023 In and Out Catheterization completed Margarita Banks, ASSISTED LIVING ASSISTANT [address], [place], [address], [place] [facility] 02/13/2023 14:34:26 023 Medication [...] - [facility] 12/20/2021 15:34:16 968 Appendectomy completed Finaradha Vasquez [place] - [facility] 12/02/2023 10:40:15 967 [...] Name and Address Organization Details Recorded Time 944147 lisinopri l medicatio n rash Not available high 12/17/2021 04122 RxNorm Fina Vasquez null, [place] - [facility] 2 10:17:08 782806 Oxycontin medicatio n hallucina tions moderate high 12/17/2021 43944 6 RxNorm Fina Vas[place] - [facility] 10:18:04 295761 codeine medicatio n rash moderate high 12/17/2021 2670 RxNorm Fina Vas[place], [place] - [facility] 2 10:16:43 632925 acetamino phen / oxycodone medicatio n hallucina tions severe high 12/17/2021 54292 3 RxNorm Fina Vasquez [place] - [facility] 10:17:43 014224 cephalexi n medicatio n eye swelling Not available low 11/11/2022 2231 RxNorm Fina Vasquez [place], [place] - [facility] 3 12:54:33 544963 Macrobid medicatio n diarrhea moderate high 01/13/2023 60418 1 RxNorm vomit ing and diarr hea [...] Not Available Not Available Not Available [facility] [place] 3 mL 08/22 completed Not Available Not [...] Updated DateTime 5 151.13 cm 28.6 kg/m2 43975.3 g 84 /min 92 % 92 % [...] 5 151.13 cm 18 /min 28.2 kg/m2 09292.1 2 g 98 [degF] 100 /min 93 % 93 % 160 mm[Hg] 86 mm[Hg] Dia Leivas [place] - [facility] 5 14:00:52 Date Recorded Body height Body mass index (BMI) Body weight Respiratory rate Oxygen saturation Oxygen saturation in Arterial blood by Pulse oximetry Heart rate Systolic blood pressure Diastolic blood pressure Provider Name and Address Organization Details Last Updated DateTime 5 151.13 cm 28.4 kg/m2 55588.7 1 g 18 /min 92 % 92 % 90 /min 126 mm[Hg] 78 mm[Hg] Dia Leivas [place] - [facility] 5 11:44:21 Date Recorded Body height Body mass index (BMI) Body weight Heart rate Oxygen saturation Oxygen saturation in Arterial blood by Pulse oximetry Systolic blood pressure Diastolic blood pressure Provider Name and Address Organization Details Last Updated DateTime 5 151.13 cm 28.2 kg/m2 91078.1 2 g 86 /min 90 % 90 % 110 mm[Hg] 68 mm[Hg] Marlin Leon [place] - [facility] 5 13:33:59 Date Recorded Body [...] 5 151.13 cm 20 /min 28 kg/m2 61262.5 2 g 84 /min 94 % 94 [...] Tobacco Smoking Status Never Smoker Dia [place], [place] - [facility] 12/17/2021 09:30:03 Do You Have [...] Or The Highest Degree You Have Received? [id number] Information not available 12/17/2021 Have There Been Any Changes To Your Family Or Social Situation? No Information no t available 07/14/2023 What Is The Fluoride Status Of Your Home? Unknown Information not available 07/14/2023 Have You Recently Or Are You Planning To Travel To An Area With Zika Virus? No Information not available 07/14/2023 Do You Have A Medical Power Of Air [place]? No Information not available 07/14/2023 What Was [...] anxious, or unable to sleep at night)? [id number] Information not available 12/20/2021 Do you have [...] high-dose, quadrivalent, PF 02/21/2022 completed Dylan Lebron, ASSISTED LIVING ASSISTANT [address], [place], [address], [place] [facility] 03/26/2022 17:30:58 Influenza, high-dose, [...] 50 mcg/0.25mL dose 04/11/2021 completed Fina Vasquez diaz, GEO - [facility] 08/22/2022 14:19:25 Tdap 04/20/2013 completed Fina Pedro null, GEO - [facility] 08/22/2022 14:19:25 zoster live 04/20/2013 completed Fina Vasquez null, GEO - [facility] 08/22/2022 14:19:25 Influenza, high-dose, trivalent, PF 05/16/2021 completed Fina perales, GEO - [facility] 08/22/2022 14:19:25 Past Encounters Encounter ID Performer Location Encounter Start Date Encounter Closed Date Diagnosis/Indication Diagnosis SNOMED-CT Code Diagnosis ICD10 Code Diagnosis Note [id number] Dylan Lebron APRN [address] [address] 12/17/2021 08:46:07 12/17/2021 10:35:13 Diabetes mellitus 39568951 E11.9 Overall, pt doing well at this [...] questions or concerns arise. Urinary incontinence 165 350481 R32 pt wants to wait on referral wants to try meds first. if gfr wnl will start mybretriq Hypercholesterolemia 136 35302 E78.00 Hypertensive disorder 38 094143 I10 Hypothyroidism 46422941 E03.9 Neuropathy 035155123 G62 .9 on gabapentin Coronary arteriosclerosis 96481567 I25.10 follow up with cardiology as scheduled [id number] Dylan Lebron APRN [address] [address] 12/20/2021 14:52:20 12/20/2021 17:13:38 Type 2 diabetes mellitus 25130550 E11.21 Insulin pump present 450 390907 Z96.41 increased Education about insulin pump 6224171920 99233 Z46.81 current insulin pump settings:b maru rate 1.9 units/hr midnight to 8 am2.5 units/hr 8am to 12 pmtotal 58.2 units a daymax of 80 units a day adjustment s :basal rate 1.9 units/hr midnight to 8 am2.85 units/hr 8am to 12 pmtotal of 65.55 units in 24 hoursincre ase bolus to each meal and snack Acute urin nasra tract infection 585689127 N39.0 med sent [id number] Dylan Lebron [address] [address] 01/07/2022 13:15:54 01/07/2022 14:11:25 Acute urinary tract infection 620510581 N39.0 med sent Dizzy spells 211993694 R 42 [id number] Dylan Lebron [address] [address] 01/15/2022 14:53:00 01/15/2022 15:42:34 Acute urinary tract infection 262631663 N39.0 med sent, discussed with pharm antibiotic s based on culture, will reculture and sent referral to urology Pain of ri ght hip joint 9350939429 63054 M25.179 [id number] Dylan Lebron [address] [address] 01/24/2022 10:35:55 01/24/2022 11:11:42 Low back pain 840430766 M54.41 decadron 4mg given im, watch glucose close may need to adjust insulin dose for a few days [id number] Dylan Lebron [address] [address] 01/28/2022 14:54:09 01/28/2022 16:38:47 Neuropathy 506499347 G62.9 on gabapentin Low back pain 295795380 M54.41 [id number] Dylan Lebron [address] [address] 02/04/2022 10:17:23 02/04/2022 11:03:56 Low back pain 214879814 M54.41 Donald report obtained, reviewed, and made [...] 3 days or norco until mri resulted [id number] Dylan Lebron [address] [address] 02/21/2022 09:51:52 02/21/2022 11:03:15 Low back pain 318440926 M54.41 Donald report obtained, reviewed, and made [...] as csa on file Influenza vaccine needed 1111150963 106 Z23 [id number] Dylan Lebron [address] [address] 08/22/2022 13:52:04 08/22/2022 15:02:08 Neuropathy 577441634 G62.9 Pt compliant with plan of careKasper reviewed and appropriat emedicatio n compliance discussedC ontrol substance agreement on fileuds next visit- pt has pain and difficulty getting on and off toilet Type 2 lexx betes mellitus 92607961 E11.21 labs next visit Hypertensive disorder 38 387006 I10 labs next visit Hypercholesterolemia 136 41239 E78.00 [id number] Dylan Lebron [address] [address] 11/08/2022 13:31:16 11/08/2022 14:44:29 Acute urinary tract infection 953270089 N39.0 increase fluids Candidiasis of vagina 72 345088 B37.31 [id number] Dylan Lebron APRN [address] [address] 11/19/2022 14:48:02 11/19/2022 15:38:27 Acute confusion 444741813 R41.0 sent to ed for eval- report to Yanelis Arzola RN Abnormal g ait due to muscle weakness 081505768 M62.81 Unsteady when walking 22 302411 R26.89 Abnormal vision 9872969 H54.7 Disorder o f eye movements 47601834 H55.89 [id number] Dylan Lebron APRN [address] [address] 11/25/2022 14:33:30 11/25/2022 15:58:01 Headache 71246953 R51.9 discussed with [place] at dr do office and recommende d going back to ed for eval. pt sent to [facility] for eval report called to Marlin. Abnormal g ait due to muscle weakness 229906884 M62.81 [id number] Dylan Lebron APRN [address] [address] 12/12/2022 10:35:13 12/12/2022 11:44:04 Hypercholesterolemia 86379140 E78.00 Hypertensive disorder 38 881361 I10 Hypothyroidism 45417514 E03.9 Type 2 lexx betes mellitus 30948462 E11.21 Long-term current use of drug therapy 191078382 Z79.899 Long-term current use of insulin 677330952 Z79.4 Insulin pump present 450 542537 Z96.41 Abnormal g ait due to impairment of balance 996913234 R26.89 Hyperkalemia 39778483 E8 7.5 Neuropathy 628378135 G62 .9 Pt compliant with plan of careKasper reviewed and appropriat emedicatio n compliance discussedC ontrol substance agreement on fileuds :12/12/22 [id number] Dylan Lebron APRN [address] [place] [address] 01/06/2023 10:15:58 01/06/2023 11:25:08 Acute urinary tract infection 805305265 N39.0 increase fluids Candidiasis of skin 4988 3006 B37.2 Fatigue 70324046 R53.83 Cobalamin deficiency 190 787127 E53.8 [id number] Dylan Lebron [address] [address] 01/13/2023 09:55:30 01/13/2023 10:48:55 Acute urinary tract infection 103487686 N39.0 increase [address]pok e with dr grajeda will send to [facility] for eval and treatment Low blood pressure 76828 003 I95.9 Abnormal g ait due to muscle weakness 356295748 M62.81 [id number] Dylan Lebron [address] [address] 01/31/2023 10:32:52 01/31/2023 11:32:09 Hypercholesterolemia 27301356 E78.00 History of urinary tract infection 5431807894 107 Z87.440 Muscle weakness 53961853 M62.81 Acute urin nasra tract infection 723400621 N39.0 increase fluidsurol ogy consultcx Hyperglyce sera due to type 2 diabetes mellitus 3088047341 40866 E11.65 Hypoglycemia 051970772 E 16.2 pt would benefit from omnipod 5 and dexcom 6- this could prevent hyper and hypoglycem ia episodes [id number] Margarita Banks [facility] [address] [place] [address] 02/04/2023 14:22:54 02/04/2023 15:54:28 Hypertensive disorder 51767929 I10 Type 2 lexx betes mellitus 78400920 E11.21 Coronary arteriosclerosis 62786430 I25.10 Chronic ki dney disease stage 4 780043241 N18.4 Recurrent urinary tract infection 068393150 N39.0 -continue estradiol VC. Hydronephrosis 83895725 N13.30 Patient me dical record not available [id number] Z76.89 Mixed urin nasra incontinence 105396530 N39.46 Acute urin nasra tract infection 053865344 N39.0 [id number] [facility] [address] [place] [address] 4 02/13/2023 13:31:33 02/13/2023 14:44:51 Recurrent urinary tract infection 575180693 N39.0 -continue estradiol VC. Hydronephrosis 59121989 N13.30 Chronic ki dney disease stage 4 163563411 N18.4 Hypertensive disorder 38 598117 I10 Type 2 lexx betes mellitus 00947052 E11.21 Coronary arteriosclerosis 73542177 I25.10 Mixed urin nasra incontinence 556773210 N39.46 [id number] [facility] [address] [place] [address] 03/06/2023 14:23:11 03/06/2023 15:44:51 Recurrent urinary tract infection N39.0 -continue estradiol VC. Hydronephrosis 12541062 N13.30 Chronic ki dney disease stage 4 709416891 N18.4 Hypertensive disorder 38 937717 I10 Type 2 lexx betes mellitus 99762697 E11.21 Coronary arteriosclerosis 74215086 I25.10 Mixed urin nasra incontinence 662018149 N39.46 Acute urin nasra tract infection 484963287 N39.0 [id number] [facility] [address] [place] [address] 03/25/2023 13:36:38 03/25/2023 14:21:18 Recurrent urinary tract infection 991385081 N39.0 -continue estradiol VC. Hydronephrosis 08916347 N13.30 Chronic ki dney disease stage 4 218595691 N18.4 Hypertensive disorder 38 004183 I10 Type 2 lexx betes mellitus 83049233 E11.21 Coronary arteriosclerosis 50814772 I25.10 Mixed urin nasra incontinence 826910022 N39.46 Overactive urinary bladder 858607689 N32.81 -avoid anticholin ergics in this patient d/t potential patient harm. anticholin ergics interact with currently rx medication s and combo may incr. risk of CABLE BRAIDER depression , psychomoto r impairment . Also pt is 72 years old, and anticholin ergics should be avoided d/t BEERS criteria.B eta 3 agonists are the safest alternativ e for this patient. [id number] Margarita Banks APRN [facility] [address] [place] [address] 05/06/2023 13:48:23 05/06/2023 14:45:17 Recurrent urinary tract infection 140122272 N39.0 -continue estradiol VC. Hydronephrosis 05019645 N13.30 Chronic ki dney disease stage 4 047906341 N18.4 Hypertensive disorder 38 423126 I10 Type 2 lexx betes mellitus 08515678 E11.21 Coronary arteriosclerosis 00154872 I25.10 Mixed urin nasra incontinence 243560072 N39.46 Overactive urinary bladder 835983351 N32.81 -avoid anticholin ergics in this patient d/t potential patient harm. anticholin ergics interact with currently rx medication s and combo may incr. risk of CABLE BRAIDER depression , psychomoto r impairment . Also pt is 72 years old, and anticholin ergics should be avoided d/t BEERS criteria.B eta 3 agonists are the safest alternativ e for this patient. -PFPT- unable to travel. she does not have a PFPT provider within a [address] from her home.-fail ed bladder training. Acute urin nasra tract infection 815880786 N39.0 [id number] Dylan Lebron APRN [address] [address] 04/03/2023 10:54:18 04/03/2023 12:24:14 Neuropathy 733422226 G62.9 Pt compliant with plan of careKasper reviewed and appropriat emedicatio n compliance discussedC ontrol substance agreement on file Long-term drug therapy 976286288 Z79.899 Coronary arteriosclerosis 24440642 I25.10 follow up with cardiology as scheduled Hypercholesterolemia 136 31154 E78.00 Hypertensive disorder 38 081542 I10 Hypothyroidism 20913921 E03.9 Type 2 lexx betes mellitus 61708110 E11.21 due to hypoglycem ia and her having to treat lows she would benefit from the dexcom g6 and omnipod 5 to mange her lows better. pt is scared of hypoglycem ia so at 100 she is treating low with glucose tablets. pt has been hospitaliz ed due to lows. Hypoglycemia 797360925 E 16.2 pt would benefit from omnipod 5 and dexcom 6- this could prevent hyper and hypoglycem ia episodes [id number] Dylan Lebron APRN [address] [address] 04/25/2023 08:48:34 04/25/2023 10:09:13 Influenza vaccine needed 6977853406 106 Z23 Arthritis 0543613 M19.90 Coronary arteriosclerosis 18521050 I25.10 follow up with cardiology as scheduled Gastroesop hageal reflux disease 836617350 K21.9 Hypercholesterolemia 136 27838 E78.00 Hypertensive disorder 38 782602 I10 Hypothyroidism 72023467 E03.9 Neuropathy 629139125 G62 .9 [facility] and appropriat emedicatio n compliance discussedC ontrol substance agreement on file Type 2 lexx betes mellitus 68176884 E11.21 due to hypoglycem ia and her having to treat lows she would benefit from the dexcom g6 and omnipod 5 to mange her lows better. pt is scared of hypoglycem ia so at 100 she is treating low with glucose tablets. pt has been hospitaliz ed due to lows. Acute urin nasra tract infection 934507143 N39.0 increase fluidsurol ogy consultcx [id number] Margarita Banks APRN [facility] [address] [place] [address] 06/05/2023 10:06:54 06/05/2023 11:17:33 Recurrent urinary tract infection 284705289 N39.0 -continue estradiol VC. Hydronephrosis 40828638 N13.30 Chronic ki dney disease stage 4 654631729 N18.4 Hypertensive disorder 38 752739 I10 Type 2 lexx betes mellitus 03380869 E11.21 Coronary arteriosclerosis 81539062 I25.10 Mixed urin nasra incontinence 986352834 N39.46 Overactive urinary bladder 365764026 N32.81 -avoid anticholin ergics in this patient d/t potential patient harm. anticholin ergics interact with currently rx medication s and combo may incr. risk of CABLE BRAIDER depression , psychomoto r impairment . Also pt is 72 years old, and anticholin ergics should be avoided d/t BEERS criteria.B eta 3 agonists are the safest alternativ e for this patient. -PFPT- unable to travel. she does not have a PFPT provider within a [address] from her home.-fail ed bladder training. Candidiasis of vagina 72 060342 B37.31 reported per pt with abx tx. [id number] Dylan Lebron APRN [facility] [address] [place] [address] 05/23/2023 13:24:23 05/23/2023 14:10:28 History of urinary tract infection 9287612196 107 Z87.440 Increased frequency of urination 432203805 R35.0 Acute back pain with sciatica 881306352 M54.41 monitor glucose close [id number] Margarita Banks APRN [facility] [address] [place] [address] 07/10/2023 11:09:05 07/10/2023 11:36:55 Recurrent urinary tract infection 709435508 N39.0 -continue estradiol VC. Hydronephrosis 96323394 N13.30 Chronic ki dney disease stage 4 378091756 N18.4 Hypertensive disorder 38 684730 I10 Type 2 lexx betes mellitus 05535117 E11.21 Coronary arteriosclerosis 14858716 I25.10 Mixed urin nasra incontinence 677182694 N39.46 Overactive urinary bladder 078404424 N32.81 -avoid anticholin ergics in this patient d/t potential patient harm. anticholin ergics interact with currently rx medication s and combo may incr. risk of CABLE BRAIDER depression , psychomoto r impairment . Also pt is 72 years old, and anticholin ergics should be avoided d/t BEERS criteria.B eta 3 agonists are the safest alternativ e for this patient. -PFPT- unable to travel. she does not have a PFPT provider within a [address] from her home.-fail ed bladder training. [id number] Dylan Lebron APRN [facility] [address] [place] [address] 07/01/2023 14:51:59 07/01/2023 16:21:06 Arthritis 2826801 M19.90 Neuropathy 253996495 G62 .9 Pt compliant with plan of careKasper reviewed and appropriat emedicatio n compliance discussedC ontrol substance agreement on fileuds: History of urinary tract infection 0613900709 107 Z87.440 Pain of ri ght hip joint 7172212774 40828 M25.551 steroids if no improvemen t will order xrays Pain of ri ght ankle joint 1631479229 3442797 M25.571 Chronic ki dney disease 651657353 N18.9 Middle ear effusion 1004 126384 H74.8X9 steroidsmo nitor glucose close [id number] [facility] [address] [place] [address] 08/20/2023 09:32:55 08/20/2023 10:07:07 Recurrent urinary tract infection 572515925 N39.0 -continue estradiol VC. Hydronephrosis 12183252 N13.30 Chronic ki dney disease stage 4 331727392 N18.4 Hypertensive disorder 38 619554 I10 Type 2 lexx betes mellitus 95462206 E11.21 Coronary arteriosclerosis 23709587 I25.10 Mixed urin nasra incontinence 287409889 N39.46 Overactive urinary bladder 251303928 N32.81 -avoid anticholin ergics in this patient d/t potential patient harm. anticholin ergics interact with currently rx medication s and combo may incr. risk of CABLE BRAIDER depression , psychomoto r impairment . Also pt is 72 years old, and anticholin ergics should be avoided d/t BEERS criteria.B eta 3 agonists are the safest alternativ e for this patient. -PFPT- unable to travel. she does not have a PFPT provider within a [address] from her home.-fail ed bladder training. [id number] Margarita Banks [facility] [address] [place] [address] 10/01/2023 10:33:52 10/01/2023 11:15:46 Recurrent urinary tract infection N39.0 -continue estradiol VC. Hydronephrosis 37189091 N13.30 Chronic ki dney disease stage 4 220831094 N18.4 Hypertensive disorder 38 487212 I10 Type 2 lexx betes mellitus 39390032 E11.21 Coronary arteriosclerosis 80035122 I25.10 Mixed urin nasra incontinence 958762789 N39.46 Overactive urinary bladder 475121633 N32.81 -avoid anticholin ergics in this patient d/t potential patient harm. anticholin ergics interact with currently rx medication s and combo may incr. risk of CABLE BRAIDER depression , psychomoto r impairment . Also pt is 72 years old, and anticholin ergics should be avoided d/t BEERS criteria.B eta 3 agonists are the safest alternativ e for this patient. -PFPT- unable to travel. she does not have a PFPT provider within a [address] from her home.-fail ed bladder training. [id number] Margarita Banks APRN [facility] [address] [place] [address] 11/12/2023 10:37:57 11/12/2023 11:26:49 Recurrent urinary tract infection 347164237 N39.0 -continue estradiol VC. Hydronephrosis 10351828 N13.30 Chronic ki dney disease stage 4 084086155 N18.4 Hypertensive disorder 38 340416 I10 Type 2 lexx betes mellitus 88595415 E11.21 Coronary arteriosclerosis 06452075 I25.10 Mixed urin nasra incontinence 974796970 N39.46 Overactive urinary bladder 373966232 N32.81 -avoid anticholin ergics in this patient d/t potential patient harm. anticholin ergics interact with currently rx medication s and combo may incr. risk of CABLE BRAIDER depression , psychomoto r impairment . Also pt is 72 years old, and anticholin ergics should be avoided d/t BEERS criteria.B eta 3 agonists are the safest alternativ e for this patient. -PFPT- unable to travel. she does not have a PFPT provider within a [address] from her home.-fail ed bladder training. [id number] [facility] [address] [place] [address] 12/31/2023 10:10:39 12/31/2023 10:57:14 Recurrent urinary tract infection N39.0 -continue estradiol VC. Hydronephrosis 45918399 N13.30 Chronic ki dney disease stage 4 608189470 N18.4 Hypertensive disorder 38 673634 I10 Type 2 lexx betes mellitus 51899930 E11.21 Coronary arteriosclerosis 85287751 I25.10 Mixed urin nasra incontinence 140362497 N39.46 Overactive urinary bladder 803034627 N32.81 -avoid anticholin ergics in this patient d/t potential patient harm. anticholin ergics interact with currently rx medication s and combo may incr. risk of CABLE BRAIDER depression , psychomoto r impairment . Also pt is 72 years old, and anticholin ergics should be avoided d/t BEERS criteria.B eta 3 agonists are the safest alternativ e for this patient. -PFPT- unable to travel. she does not have a PFPT provider within a [address] from her home.-fail ed bladder training. Body mass index 25-29 - overweight 607103118 Z68.28 BMI 28.9 Overweight 190655916 E66 .3 Patient id dical record not available [id number] Z76.89 [id number] Margarita [facility] [address] [place] [address] 11/27/2023 09:40:33 11/27/2023 10:21:23 Recurrent urinary tract infection N39.0 -continue estradiol VC. Hydronephrosis 08524021 N13.30 Chronic ki dney disease stage 4 893568454 N18.4 Hypertensive disorder 38 434440 I10 Type 2 lexx betes mellitus 38382660 E11.21 Coronary arteriosclerosis 47159527 I25.10 Mixed urin nasra incontinence 413642361 N39.46 Overactive urinary bladder 235589262 N32.81 -avoid anticholin ergics in this patient d/t potential patient harm. anticholin ergics interact with currently rx medication s and combo may incr. risk of CABLE BRAIDER depression , psychomoto r impairment . Also pt is 72 years old, and anticholin ergics should be avoided d/t BEERS criteria.B eta 3 agonists are the safest alternativ e for this patient. -PFPT- unable to travel. she does not have a PFPT provider within a [address] from her home.-fail ed bladder training. Candidiasis of mouth 797 01484 B37.0 Candidiasis of vagina 72 953304 B37.31 reported per pt with abx tx. Patient me dical record not available 098271422 Z76.89 [id number] Dylan Lebron APRN [address] [address] 12/02/2023 10:14:12 12/02/2023 11:50:08 Neuropathy 962263267 G62.9 Pt compliant with plan of careKasper reviewed and appropriat emedicatio n compliance discussedC ontrol substance agreement on fileuds: Syncope 825806374 R55 if episode happens go to ed Intermitte nt confusion 279551211 R41.0 referral to neuro Candidiasis of skin 4988 3006 B37.2 yogurt Candidiasis of mouth 797 89947 B37.0 [id number] Margarita Banks [facility] [address] [place] [address] 02/04/2024 11:12:56 02/04/2024 13:31:27 Recurrent urinary tract infection 821162521 N39.0 -continue estradiol VC. Hydronephrosis 62369664 N13.30 Chronic ki dney disease stage 4 184698327 N18.4 Hypertensive disorder 38 537815 I10 Type 2 lexx betes mellitus 97737236 E11.21 Coronary arteriosclerosis 22529346 I25.10 Mixed urin nasra incontinence 297060327 N39.46 Overactive urinary bladder 866152616 N32.81 -avoid anticholin ergics in this patient d/t potential patient harm. anticholin ergics interact with currently rx medication s and combo may incr. risk of CABLE BRAIDER depression , psychomoto r impairment . Also pt is 72 years old, and anticholin ergics should be avoided d/t BEERS criteria.B eta 3 agonists are the safest alternativ e for this patient. -PFPT- unable to travel. she does not have a PFPT provider within a [address] from her home.-fail ed bladder training. Body mass index 25-29 - overweight 781924560 Z68.28 BMI 28.9 Overweight 384269401 E66 .3 Acute urin nasra tract infection 187972308 N39.0 [id number] Margarita Banks ASSISTED LIVING ASSISTANT [facility] [address] [place] [address] 03/24/2024 11:07:18 03/24/2024 11:59:47 Recurrent urinary tract infection 005227700 N39.0 -continue estradiol VC. Hydronephrosis 45203880 N13.30 Chronic ki dney disease stage 4 966603536 N18.4 Hypertensive disorder 38 101253 I10 Type 2 lexx betes mellitus 53159559 E11.21 Coronary arteriosclerosis 87934593 I25.10 Mixed urin nasra incontinence 789230793 N39.46 Overactive urinary bladder 610092297 N32.81 -avoid anticholin ergics in this patient d/t potential patient harm. anticholin ergics interact with currently rx medication s and combo may incr. risk of CABLE BRAIDER depression , psychomoto r impairment . Also [...] legs. Body mass index 25-29 - overweight 648773856 Z68.28 BMI 28.9 Overweight 522209997 E66 .3 [id number] Dylan Lebron APRN [address] [address] 02/24/2024 10:32:52 02/24/2024 12:15:00 Type 2 diabetes mellitus 11983912 E11.21 labs Influenza vaccine needed 2642889538 106 Z23 Coronary arteriosclerosis 56668851 I25.10 follow up with cardiology as scheduled Hypercholesterolemia 136 15142 E78.00 labs Hypertensive disorder 38 495708 I10 labs Hypothyroidism 77614183 E03.9 labs Neuropathy 603800974 G62 .9 Pt compliant with plan of Alcides reviewed and appropriat emedicatio n compliance discussedC ontrol substance agreement on fileuds: Candidiasis of skin 4988 3006 B37.2 yogurt Long-term drug therapy 843939010 Z79.728 [id number] Dylan Lebron APRN [address] [address] 03/08/2024 14:13:34 03/08/2024 15:45:05 Type 2 diabetes mellitus 70759470 E11.21 needs the omnipod 5 that works with dexcom 7 so the pump can adjust based on cgm, high risk for hyperglyce sera Low back pain 348351270 M54.41 seen xray and talked with pt- due to broken hardware i have asked they only work with pt on her gait and balance and informed pt of xray results so she would understand . [id number] Margarita Banks APRN [facility] [address] [place] [address] 05/25/2024 11:21:29 05/25/2024 12:02:02 Recurrent urinary tract infection 080324101 N39.0 -continue estradiol VC. Hydronephrosis 89433869 N13.30 Chronic ki dney disease stage 4 645851483 N18.4 Hypertensive disorder 38 457289 I10 Type 2 lexx betes mellitus 21886447 E11.21 Coronary arteriosclerosis 86184009 I25.10 Mixed urin nasra incontinence 636903984 N39.46 Overactive urinary bladder 223503565 N32.81 -avoid anticholin ergics in this patient d/t potential patient harm. anticholin ergics interact with currently rx medication s and combo may incr. risk of CABLE BRAIDER depression , psychomoto r impairment . Also [...] legs. Body mass index 25-29 - overweight 821406846 Z68.28 BMI 28.9 Overweight 500391253 E66 .3 [id number] Margarita Banks APRN [facility] [address] [place] [address] 08/24/2024 10:39:52 08/24/2024 11:30:09 Recurrent urinary tract infection 787315604 N39.0 -continue estradiol VC. Overactive urinary bladder 825652310 N32.81 -avoid anticholin ergics in this patient d/t potential patient harm. anticholin ergics interact with currently rx medication s and combo may incr. risk of CABLE BRAIDER depression , psychomoto r impairment . Also pt is 72 years old, and anticholin ergics should be avoided d/t BEERS criteria.B eta 3 agonists are the safest alternativ e for this patient. -PFPT- unable to travel. she does not have a PFPT provider within a [address] from her home.-fail ed bladder training. failed myrbetriq- caused swelling in legs. Hydronephrosis 75089690 N13.30 Chronic ki dney disease stage 4 504544254 N18.4 Hypertensive disorder 38 898548 I10 Type 2 lexx betes mellitus 27808100 E11.21 Coronary arteriosclerosis 71251494 I25.10 Mixed urin nasra incontinence 772809055 N39.46 Body mass index 25-29 - overweight 419871646 Z68.28 BMI 28.9 Overweight 671994675 E66 .3 [id number] Dylan Lebron APRN [address] [address] 2024 12:53:40 2024 14:27:55 Type 2 diabetes mellitus 47419042 E11.21 needs the omnipod 5 that works with dexcom 7 so the pump can adjust based on cgm, high risk for hyperglyce sera Hypertensive disorder 38 713939 I10 Hypercholesterolemia 136 90462 E78.00 Gastroesop hageal reflux disease 934773807 K21.9 Hypothyroidism 73807821 E03.9 Neuropathy 516436791 G62 .9 Pt compliant with plan of careDonald reviewed and appropriat emedicatio n compliance discussedC ontrol substance agreement on fileuds: Arthritis 2795989 M19.90 Coronary arteriosclerosis 56998484 I25.10 follow up with cardiology as scheduled Acute urin nasra tract infection 394002610 N39.0 increase fluidsurol ogy consultcx Abnormal g ait due to impairment of balance 572328053 R26.89 [id number] Dylan Lebron APRN [address] [address] 07/19/2024 10:50:07 07/19/2024 12:07:19 Acute urinary tract infection 031549731 N39.0 increase fluidsurol ogy consultcx Type 2 lexx betes mellitus 98128632 E11.21 needs the omnipod 5 that works with dexcom 7 so the pump can adjust based on cgm, high risk for hyperglyce miacarb to insulin ratio changed and target range adjusted. Vertigo 924569795 R42 [id number] Margarita Banks APRN [facility] [address] [place] [address] 10/08/2024 13:08:12 10/08/2024 14:14:05 Recurrent urinary tract infection 667802783 N39.0 -continue estradiol VC. Overactive urinary bladder 621581283 N32.81 -avoid anticholin ergics in this patient d/t potential patient harm. anticholin ergics interact with currently rx medication s and combo may incr. risk of CABLE BRAIDER depression , psychomoto r impairment . Also [...] d gemtesa- caused swelling in legs. Hydronephrosis 05589593 N13.30 Chronic ki dney disease stage 4 131645600 N18.4 Hypertensive disorder 38 174975 I10 Type 2 lexx betes mellitus 26316768 E11.21 Coronary arteriosclerosis 30429172 I25.10 Mixed urin nasra incontinence 297405680 N39.46 Body mass index 25-29 - overweight 366142429 Z68.28 BMI 28.9 Overweight 099669810 E66 .3 [id number] Tonezion Lebron[address] [address] 09/02/2024 13:48:04 09/02/2024 15:32:54 Neuropathy 337747337 G62.9 Pt compliant with plan of Alcides reviewed and appropriat emedicatio n compliance discussedC ontrol substance agreement on fileuds: Long-term drug therapy 641302517 Z79.899 Acute maxi llary sinusitis 27011491 J01.00 on cipro Cough 41922826 R05.9 meds [id number] Dylan Ramirescarito[address] [address] 09/27/2024 11:37:40 09/27/2024 12:12:41 Candidiasis of vagina 60615328 B37.31 take diflucan tab- only took one tabwait for cx results on urine and vaginal- before starting antibiotic [facility] [id number] [facility] Ram[facility] [address] 11/19/2024 10:13:18 11/19/2024 13:47:54 Adult health examination 729932713 Z00.00 Depression screening 171 505832 Z13.31 A depression screening was completed via a standardiz ed screening tool. 5 minutes were spent discussing depression screening results and risk factors. Examinatio n of blood pressure 279067553 Z01.30 Diet education 33015630 Z71.3 Counseling 622640450 Z71 .82 Exercise counseling . Patient encouraged to exercise 30 minutes 5 days a week. At [facility] ed risk for falls 648804977 Z91.81 STEADI FAST screening score of _12____. 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 8857521833 56369 E11.621 L97.529 follow up with podiatryan tibioticsb etadine soaked dressings change dressing daily Pain of le ft knee joint 7396210712 07410 M25.562 Impaired cognition 97852 6002 G31.84 Low blood pressure 98812 003 I95.9 Syncope and collapse 309 339668 R55 if episode happens go to ed Health Concerns Section Related Observation LastModified by Organization Detai ls LastModified Time None Recorded Concern Status LastModified by Organization Details LastModified Time None Recorded Advance Directives Directive N: Payers Insurance Date Sequence Insurance Name Policy Number Policy Elena Covered Member ID Elena Member ID Guarantor Name 11/16/2024 [employer] [place] [facility] (MEDICARE) Jillian S Riverhead [id number] Jillian Riverhead 11/16/2024 1 [place] Jillian S Riverhead [id number] Jillian Yesica 01/05/2022 1 [place] [employer] Jillian S Yesica [id number] Jillian Yesica 11/16/2024 2 FOR LIFE ( - MEDICARE SUPPLEMENT) [id number] Mariano Robert [id number] Jillian Robert 12/17/2021 2 FOR LIFE () Jillian Yesica [id number] Jillian Riverhead Notes Date Note Type Note Provider Name and Address Organization Details Recorded Time 5 text/html Lower Urinary Tract Symptoms (LUTS)Reported bypatient.Location:[facility] Quality:worsening Severity:bothersome Onset/Timing:> 1 year Duration:constant [...] faecalis -mid december 2022- d/c summary from [facility] reports admit for left pyelo UCX grew klebsiella pneumoniae. -01/13/23- UCx negative.-01/13/23- creat 2.2, gfr 27. -01/13/23- CT abd pel w/o- per report- moderate hydronephrosis and hydroureter on the left, stable. moderate thickening of the bladder, likely d/t under distension. -01/14/23- d/c summary from [facility]- reviewed. admitted 01/13/23 for uti. ucx >100k [...] 3 packet but she never got it) 4/24/24- UCX - citrobacter BRAAKII (tx fosfomycin 3g [...] restart it after her fosfomycin Margarita Banks, ASSISTED LIVING ASSISTANT [address], [place], [address], [place] [facility] 08/24/2024 11:28:22 5 text/html 74 year old female who presents to the office today for a follow up onneuropathy- needs a refill on gabapentin- works well for neuropathyhas concerns of cough and green/vasquez congestion x 1 weekpt doing well with her cgm and omnipod- contiune treatment- trying to get omnipod 5 covered to prevent hypoglycemia Dylan Lebron APRN [address], [place], [address], [place] [facility] 09/02/2024 15:40:57 5 text/html 74 year old female who presents to the office today with concerns ofyeast infection- she was prescribed fluconazole on 09-21-24 one tab, also used monistat 3 tubesstopped taking Gemtesa, she thought it might have caused yeast infection, states vaginal burning and itching, burning with urination Dylan Lebron APRN [address], [place], [address], [place] [facility] 09/27/2024 14:06:54 5 text/html Lower Urinary Tract Symptoms (LUTS)Reported bypatient.[facility] Quality:worsening Severity:bothersome Onset/Timing:> 1 year Duration:constant [...] faecalis -mid december 2022- d/c summary from [facility] reports admit for left pyelo UCX grew klebsiella pneumoniae. -01/13/23- UCx negative.-01/13/23- creat 2.2, gfr 27. -01/13/23- CT abd pel w/o- per report- moderate hydronephrosis and hydroureter on the left, stable. moderate thickening of the bladder, likely d/t under distension. -01/14/23- d/c summary from [facility]- reviewed. admitted 01/13/23 for uti. ucx >100k [...] forgot to restart it again Margarita Banks, ASSISTED LIVING ASSISTANT [address], [place], [address], [place] [facility] 10/08/2024 14:12:25 5 text/html Medicare Annual Wellness VisitReported bypatient.Diet and [...] as EMS personnel arrived. Patient taken to [facility] per [facility]. Dylan Lebron, ASSISTED LIVING ASSISTANT [address], [place], [address], [place] [facility] 11/19/2024 16:25:37 OBGyn Episode No OBEpisode recorded.
== END 2024-11-22 23:59 | disposition home or self-care (01) ==
LOC: RAD 10:04
PROVIDERS: PCP Nurse Practitioner Family; Visit Provider Nurse Practitioner Family
DX: E11.621 Type 2 diabetes mellitus with foot ulcer (principal); L97.529 Non-pressure chronic ulcer of other part of left foot with unspecified severity
CPT/HCPCS: 73630

== ENCOUNTER 2024-12-01 09:47 | Outpatient (CLI) | payer MEDICARE, OTHER, SELFPAY ==
--- OUTSIDE RECORDS SUMMARY | 2024-12-03 09:49 | XMS_ITS | Clinical Summary ---
Author Organization [facility] (Formerly [facility]) Address [address] [place] [id number] Phone Care Team Providers Care Crepe Sole Scourer Name Role Phone Maine Patel [phone] Conditions or Problems Problem Name Problem Code Onset Date Status Entry Date Provider Comment Standard Description Annotate PAIN IN HIP, RIGHT M25.551 (ICD-10-CM ) 02/12 Active 02/12 Mainejone Patel Pain in right hip *AFTRCR FOLLOW SRG MUSCULOSKELETAL SYSTEM NEC Z48.89 (ICD-10-CM ) 08/26 Active 08/26 Pat Short MA Encounter for other specified surgical aftercare OVERWEIGHT 975095743 (SNOMED CT) Active Pat Short MA Overweight LUMBAR SPONDYLOLISTHESI S, ACQUIRED, 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 (ICD-10-CM ) Active Ly Joshi MANAGER PRODUCT MANAGEMENT 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 sis, lumbar region LUMBAR RADICULOPATHY 921241473 (SNOMED CT) Active Dianne Chatterjee MA Lumbar radiculopathy Medications Medication Instructions Start Date Stop Date Generic Name NDC Provider ESTRADIOL 0.1 MG/GM CREA estradiol 33765508949 Flor Colón MYRBETRIQ 25 MG [id number] mirabegron 23576432862 Flor Colón FLUCONAZOLE 150 MG TABS fluconazole 40871675374 Flor Colón OMEPRAZOLE 40 MG CPDR omeprazole 67184051990 Flor Colón VENLAFAXINE HCL ER 75 MG [id number] venlafaxine 55302299894 Flor Colón GNP ADVANCED PROBIOTIC CAPLET 60CT take one caplet BY MOUTH EVERY DAY GNP ADVANCED PROBIOTIC CAPLET 60CT Flor Katarzyna OMNIPOD DASH PODS (GEN 4) USE DIRECTED (CHANGE omnipod every 72 hours) insulin pump cart,cont inf,bt 29470463680 Flor Katarzyna ROSUVASTATIN CALCIUM 40 MG TABS rosuvastatin 30376023461 Flor Colón Vitamin C 500 mg tablet TAKE ONE TABLET BY MOUTH TWICE DAILY ascorbic acid (vitamin c) 64616170427 Flor Colón LEVOTHYROXINE SODIUM 112 MCG TABS levothyroxine 11391185724 Flor Colón INSULIN LISPRO 100 UNIT/ML SOLN insulin lispro 09948167713 Leonid Colón GABAPENTIN 600 MG TABS gabapentin 62172788142 Flor Colón CARVEDILOL 25 MG TABS carvedilol 99683083792 Flor Colón VASCEPA 0.5 GM CAPS icosapent ethyl 83288990357 Flor Colón ALLOPURINOL 100 MG TABS allopurinol 69402053651 Flor Colón OMEPRAZOLE 10 MG CPDR omeprazole 76791420181 Flor Colón VENLAFAXINE HCL 25 MG TABS venlafaxine 12762528695 Flor Colón TRAMADOL HCL 50 MG TABS Take 1 tablet by mouth every six hours as needed for pain tramadol 48338553591 Ki Lawson MD TRAMADOL HCL 50 MG TABS Take 1 tablet by mouth every six hours tramadol 16391649664 Ki Lawson MD TRAMADOL HCL 50 MG TABS tramadol 77232019243 Ly STROUD TRAMADOL HCL 50 MG TABS Take 1 tablet by mouth every six hours as needed for pain tramadol 84904192309 Ly STROUD OMNIPOD DASH PODS (GEN 4) insulin pump cart,cont inf,bt 82242597977 Dianne Chatterjee MA ROSUVASTATIN CALCIUM 40 MG TABS rosuvastatin 50077162657 Dianne Chatterjee MA VASCEPA 1 GM CAPS icosapent ethyl 37274439953 Dianne Chatterjee MA NITROFURANTOIN MONOHYD MACRO 100 MG CAPS nitrofurantoin monohyd/m-cryst 78817746317 Dianne Chatterjee MA CEFDINIR 300 MG CAPS cefdinir 33969380858 Dianne Chatterjee MA LEVOXYL 112 MCG TABS levothyroxine 65724307225 Dianne Chatterjee MA LEVOFLOXACIN 500 MG TABS levofloxacin 06528458942 Dianne Chatterjee MA CEPHALEXIN 500 MG CAPS cephalexin 25030435210 Dianne Chatterjee MA TRAMADOL HCL 50 MG TABS tramadol 87318120049 Dianne Chatterjee MA INSULIN LISPRO 100 UNIT/ML SOLN insulin lispro 85998607844 Dianne Chatterjee MA OMEPRAZOLE 40 MG CPDR omeprazole 75498827948 Dianne Chatterjee MA HYDROCODONE-ACETA MINOPHEN 5-325 MG TABS hydrocodone-acet aminophen 14105769134 Dianne Chatterjee MA ALLOPURINOL 100 MG TABS allopurinol 09306752408 Dianne Chatterjee MA FLUCONAZOLE 150 MG TABS fluconazole 60712843311 Dianne Chatterjee MA OXYBUTYNIN CHLORIDE ER 10 MG [id number] oxybutynin chloride 73014846322 Dianne Chatterjee MA GABAPENTIN 600 MG TABS gabapentin 60994646981 Dianne Chatterjee MA CARVEDILOL 25 MG TABS carvedilol 14716102053 Dianne Chatterjee MA VENLAFAXINE HCL ER 75 MG [id number]-[id number] venlafaxine 56243159780 Dianne Chatterjee MA FLUCONAZOLE 100 MG TABS fluconazole 77534998474 Dianne Chatterjee MA Medications Administered No information [...] Care Type Date Detail Referral Orthopedic Refer [address], [address] Pending order X-Ray Lumbar AP Lateral & [...] Procedures Code Procedure Name Date Entry Date [facility]-[id number] Flu Shot Previously Received SCT-[id number] Pneumonia Vaccine Previously Received 02/08/25 S[facility]-[id number] Medications Documented SCT-[id number] Flu Shot Previously Received SCT-[id number] Pneumonia Vaccine Previously Received 01/05/20 [facility]-[id number] Medications Documented SCT-[id number] Pneumonia Vaccine Previously Received 01/03/18 15361 Greater trochanteric bursa injection & follow up with ordering SCT-[id number] Flu Shot Previously Received SCT-[id number] Pneumonia Vaccine Previously Received 29/10/21 S[facility]-[id number] Medications Documented SCT-[id number] Flu Shot Previously Received SCT-[id number] Pneumonia Vaccine Previously Received 29/09/16 [facility]-[id number] Medications Documented SCT-[id number] Flu Shot Previously Received [facility]CT-[id number] Pneumonia Vaccine Previously Received 30/08/19 [facility]-[id number] Medications Documented SCT-[id number] Flu Shot Previously Received SCT-[id number] Pneumonia Vaccine Previously Received 01/08/02 [facility]-[id number] Medications Documented SCT-[id number] Flu Shot Previously Received [facility]-[id number] Pneumonia Vaccine Previously Received 30/05/02 [facility]-[id number] Medications Documented [facility]-[id number] Flu Shot Previously Received [facility]-[id number] Medications Documented [facility]-[id number] Pneumonia Vaccine Previously Received 30/03/21 Vital Signs Date Name Value Unit Description BMI (Body Mass Index) 27.34 kg/m2 Bod y Mass Index (Ratio) Height 60 [in_us] height E&M Weight Measured 140 [lb_av] weight E& M Weight Measured 140 [lb_av] weight E& M Immunizations No information available. Advance Directives No information available.
--- OUTSIDE RECORDS SUMMARY | 2024-12-03 09:50 | XMS_ITS | Continuity of Care Document ---
Author Organization [facility] Address [address] [place] [address] Care Team Providers Care Cna Caregiver Name Role Phone DYLAN KING Primary Care Provider MAKENZIE Dahl Radiology Specialist STEPH BLAS Embalmer Apprentice DENIS RAMIREZ Telephone Coin Box Collector Assessment Encounter Date Assessment Date Assessment LastModified by Organization Details LastModified Time 11/29/2024 11/29/2024 -Medications were reviewed and any necessary updates and renewals were made, patient instructed to complete as prescribed. -The potential side effects of medications were discussed. -Counseling was done on care goals and ways to prevent future hospitalizatio ns. -Further treatment per orders listed below. [email or web address] Not available 11/29/2024 13:05:51 Plan of Treatment Reminders Order Date Submit Date Provider Last Modified By Organization Details Last Modified Time Details Appointments Follow Up 20 2024 01:00P Rosales Banks APRN Not available Not available Not available Lab magnesium , serum or plasma 2024 025 [place] [facility], [address], [place], [place], [address], 11/29/2024 14:05:50 urinalysi s, dipstick 2024 025 [facility], [address] [place] [address], [place], [address], 11/29/2024 15:53:01 culture, urine 2024 025 [place] [facility], [address], [place], [place], [address], 11/29/2024 14:05:50 C-peptide , serum 2024 025 [place] [facility], [address], [place], [place], [address], 11/29/2024 14:05:[address] referral - possible seizures [address] [facility], [address] [place] [address], [address], 11/30/2024 08:56:09 Procedures None recorded. Surgeries None recorded. Imaging None recorded. Medication Orders levofloxa idalia 250 mg tablet 2024 025 [facility], [address] [place] [address], [address], 11/29/2024 14:07:28 Patient TargetsNo targets recorded. Patient InstructionsNo instructions recorded. Reason for Referral Neurologist Referral for Syn cope and collapse possible seizures Referring Physician: Dylan King, Family Medicine, Encounter Date: 11/29/2024 Results Created Date Observation Date Name Description Value Unit Range Abnormal Flag Note LastModifiedBy Organization Detail LastModifiedTime 11/30/1911/29/2024 urina lysis , dipst ick Color Dark Yellow Not Available [address], [address], 11/29/2024 13:29:00 11/30/19 25 11/29/2024 urina lysis , dipst ick Appearance Clear Not Available [address], [address], 11/29/2024 13:29:00 11/30/19 25 11/29/2024 urina lysis , dipst ick Glucose Negati ve Not Available [address], [address], 11/29/2024 13:29:00 11/30/19 25 11/29/2024 urina lysis , dipst ick Bilirubin Negati ve Not Available [address], [address], 11/29/2024 13:29:00 11/30/19 25 11/29/2024 urina lysis , dipst ick Ketone Negati ve Not Available [address], [address], 11/29/2024 13:29:00 11/30/19 25 11/29/2024 urina lysis , dipst ick Specific [place] 1.030 Not Available [address], [address], 11/29/2024 13:29:00 11/30/19 25 11/29/2024 urina lysis , dipst ick Blood Negati ve Not Available [address], [address], 11/29/2024 13:29:00 11/30/19 25 11/29/2024 urina lysis , dipst ick pH 5.5 Not Available [address], [address], 11/29/2024 13:29:00 11/30/19 25 11/29/2024 urina lysis , dipst ick Protein 300 Not Available [address], [address], 11/29/2024 13:29:00 11/30/19 25 11/29/2024 urina lysis , dipst ick Urobilinogen .2 Not Available Saad [address], [address], 11/29/2024 13:29:00 11/30/19 25 11/29/2024 urina lysis , dipst ick Nitrite positi ve Not Available [address], [address], 11/29/2024 13:29:00 11/30/19 25 11/29/2024 urina lysis , dipst ick Leukocytes Trace Not Available [address], [address], 11/29/2024 13:29:00 11/20/19 25 11/19/2024 elect rocar diogr am No observ ation record ed. [email or web address] [address], [address], 11/19/2024 16:58:35 11/20/19 25 11/19/2024 elect rocar diogr am No observ ation record ed. [email or web address] [address], [place], [address], 11/22/2024 09:08:29 11/23/19 25 11/19/2024 elect rocar diogr am No observ ation record ed. [email or web address] [address], [address], 11/23/2024 16:34:11 11/23/19 25 11/22/2024 XR, foot, 3 or more view No observ ation record ed. [email or web address] [facility] [address], [place], [address], 11/23/2024 18:15:43 11/30/19 25 11/19/2024 cardi ac monit or No observ ation record ed. [facility] [address], [place], [address], 11/30/2024 10:43:31 Result Notes None recorded. Problems Name Problem SNOMED Code Status Onset Date Resolution Date Notes Provider Name and Address Organization Details Recorded Time Type 2 diabetes mellitus 72885193 Active 2021 Dylan King, PHYSICAL THERAPIST TECHNICIAN [address], [place], [address], [place] - [facility] 2 10:07:29 Hypertensive disorder 33890050 Active 2021 Dylan King, PHYSICAL THERAPIST TECHNICIAN [address], [place], [address], [place] [facility] 2 10:07:09 Hypercholester olemia 55705102 Active 2021 Dylan King, PHYSICAL THERAPIST TECHNICIAN [address], [place], [address], [place] [facility] 2 10:07:05 Gastroesophage al reflux disease 108032999 Active 2021 Dylan King, PHYSICAL THERAPIST TECHNICIAN [address], [place], [address], [place] [facility] 2 10:06:49 Hypothyroidism 70187053 Active 2021 Dylan King, PHYSICAL THERAPIST TECHNICIAN [address], [place], [address], [place] [facility] 2 10:07:12 Neuropathy 184243142 Active 2021 Dylan King, PHYSICAL THERAPIST TECHNICIAN [address], [place], [address], [place] [facility] 2 10:07:19 Arthritis 1443512 Active 2021 Dylan King, PHYSICAL THERAPIST TECHNICIAN [address], [place], [address], [place] [facility] 2 10:06:47 Coronary arterioscleros is 81672380 Active 2021 Dylan Ramireslaceytiffany, PHYSICAL THERAPIST TECHNICIAN [address], [place], [address], [place] [facility] 10:18:21 Coronary artery bypass grafts x 3 Active 2021 Dylan King, PHYSICAL THERAPIST TECHNICIAN [address], [place], [address], [place] - [facility] 10:18:34 Problem Notes None recorded. Procedures Surgical History Date Name Laterality Status Provider Name and Address Organization Details Recorded Time 025 Medication Reconcilliation completed Fina Vasquez [place] - [facility] 11/29/2024 13:05:51 025 Advance Care Planning completed Fina Vasquez [place] [facility] 11/19/2024 10:41:02 025 IV Infusion completed Fina Vasquez [place] [facility] 11/19/2024 15:44:19 025 Functional Status Assessed completed Finaradha Vasquez [place] - [facility] 11/19/2024 10:41:02 024 Date of Last Colonoscopy completed Dianando Youssef [place] - [facility] 2024 13:27:50 024 Medication Reconcilliation completed Finaradha Vasquez [place] - [facility] 12/02/2023 10:36:18 023 In and Out Catheterization completed Margarita Banks, GAMA [address], [place], [address], [place] - [facility] 02/13/2023 14:34:26 023 Medication Reconcilliation completed Fina Vasquez [place] - [facility] 01/31/2023 10:55:15 023 Medication Reconcilliation completed Fina Vasquez [place] - [facility] 01/06/2023 10:21:27 023 Medication Reconcilliation completed Fina Vasquez [place] - [facility] 12/12/2022 10:55:58 023 Medication Reconcilliation completed Fina Vasquez [place] - [facility] 11/25/2022 14:44:11 023 Date of Last Mammogram completed Dia Stears [place] - [facility] 10/17/2022 13:02:19 023 Most Recent Mammogram completed Dia Stears [place] - [facility] 10/17/2022 13:02:44 023 Back Surgery completed Fina Pedro [place] - [facility] 12/02/2023 10:40:15 022 Most [...] [facility] 12/17/2021 09:27:44 cardiac catheterization completed Dia Leivas [place] - [facility] 12/17/2021 09:28:02 CABG completed Dia Leivas [place] - [facility] 12/17/2021 09:28:16 section completed Dia Leivas [place] - [facility] 12/17/2021 09:31:50 Cholecystectomy, laparoscopic completed Dia Leivas [place] - [facility] 12/17/2021 09:31:56 Appendectomy completed Dia [place]ivas [place] [facility] 12/17/2021 09:32:01 Gastrointestinal Surgery completed Dia Leivas [place] - [facility] 12/20/2021 15:34:16 Imaging Results None recorded. Procedure Notes None recorded. Medical Equipment None Reported. Allergies Allergen ID Allergen Name Allergen Category Reaction Reaction Severity Criticality Documentation Date Start Date Code Code System Note Provider Name and Address Organization Details Recorded Time 847100 lisinopri l medicatio n rash Not available high 12/17/2021 73958 RxNorm Fina Vasquez null, [place] - [facility] 2 10:17:08 052961 Oxycontin medicatio n hallucina tions moderate high 12/17/2021 04268 6 RxNorm Fina Vasquez [place] - [facility] 10:18:04 454292 codeine medicatio n rash moderate high 12/17/2021 2670 RxNorm Fina Vasquez [place] - [facility] 2 10:16:43 974269 acetamino phen / oxycodone medicatio n hallucina tions severe high 12/17/2021 48031 3 RxNorm Fina Vasquez [place] - [facility] 10:17:43 623714 cephalexi n medicatio n eye swelling Not available low 11/11/2022 2231 RxNorm Fina Pedro null, [place] - [facility] 3 12:54:33 488756 Macrobid medicatio n diarrhea moderate high 01/13/2023 98060 1 RxNorm vomit ing and diarr hea [...] Take 20 mL by injectio n route. 11/29 completed Not Available Not Available Not Available oxybutyni n chloride ER 10 mg tablet,ex [...] Not Available levofloxa idalia 250 mg tablet Take 1 tablet every day by oral route for 5 days. 2024 active Not Available Not Available Not Avai lable allopurin ol 100 mg tablet Take 1 [...] Inject 1000 mL by intraven ous route. 11/29 completed Not Available Not Available Not Available ergocalci ferol (vitamin D2) 1,250 mcg [...] Available doxycycli ne hyclate 100 mg tablet TAKE ONE TABLET BY MOUTH TWICE DAILY FOR 10 DAYS active Not Available Not Available No t Available amoxicill in 875 mg-potass ium clavulana te 125 mg tablet TAKE ONE TABLET BY MOUTH EVERY TWELVE HOURS FOR 10 DAYS -- FINISH ALL MEDICINE -- 10/08 completed Not Available Not Available Not Available meclizine 25 mg chewable tablet TAKE (1/2) TABLET BY MOUTH TWICE DAILY FOR 3 DAYS 09/02 completed Not Available Not Available Not Available [facility] [place] 3 mL 08/22 completed Not Available Not [...] height Body mass index (BMI) Body weight Body temperature Heart rate Oxygen saturation Oxygen saturation in Arterial blood by Pulse oximetry Respiratory rate Systolic blood pressure Diastolic blood pressure Provider Name and Address Organization Details Last Updated DateTime 5 151.13 cm 27.6 kg/m2 73686.3 4 g 98 [degF] 87 /min 95 % 95 % 18 /min 118 mm[Hg] 64 mm[Hg] Fina Vasquez [place] - [facility] 5 13:17:29 Social History Question Answer Notes LastModified by [...] Or The Highest Degree You Have Received? AI10624-8 Information not available 12/17/2021 Have There Been Any Changes To Your Family Or Social Situation? No Information no t available 07/14/2023 What Is The Fluoride Status Of Your Home? Unknown Information not available 07/14/2023 Have You Recently Or Are You Planning To Travel To An Area With Zika Virus? No Information not available 07/14/2023 Do You Have A Medical Power Of Hand [place]? No Information not available 07/14/2023 What Was [...] anxious, or unable to sleep at night)? [id number] Information not available 12/20/2021 Do you have [...] high-dose, quadrivalent, PF 02/21/2022 completed Dylan King, PHYSICAL THERAPIST TECHNICIAN [address], [place], [address], [place] [facility] 03/26/2022 17:30:58 Influenza, high-dose, quadrivalent, PF 04/25/2023 completed Fina Vas[place] - [facility] 04/25/2023 13:24:26 Influenza, high-dose, trivalent, PF 02/24/2024 completed Fina [place] [facility] 03/11/2024 17:52:11 COVID-19, mRNA, LNP-S, PF, 100 mcg/0.5mL dose or 50 mcg/0.25mL dose 08/02/2020 completed Fina [place] [facility] 08/22/2022 14:19:25 COVID-19, mRNA, LNP-S, PF, 100 mcg/0.5mL dose or 50 mcg/0.25mL dose 08/31/2020 completed Fina [place] [facility] 08/22/2022 14:19:25 COVID-19, mRNA, LNP-S, [...] SNOMED-CT Code Diagnosis ICD10 Code Diagnosis Note [id number] Dylan King APRN [address] [address] 11/19/2024 10:13:18 11/19/2024 13:47:54 Adult health examination 897223294 Z00.00 Depression screening 171 256465 Z13.31 A depression screening was completed via a standardiz ed screening tool. 5 minutes were spent discussing depression screening results and risk factors. Examinatio n of blood pressure 913278559 Z01.30 Diet education 17815276 Z71.3 Counseling 553791980 Z71 .82 Exercise counseling . Patient encouraged to exercise 30 minutes 5 days a week. At [facility] ed risk for falls 873420060 Z91.81 STEADI FAST screening score of _12____. 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 0010524869 58467 E11.621 L97.529 follow up with podiatryan tibioticsb etadine soaked dressings change dressing daily Pain of le ft knee joint 4161582176 69777 M25.562 Impaired cognition 32534 6002 G31.84 Low blood pressure 06757 003 I95.9 Syncope and collapse 309 518332 R55 if episode happens go to ed [id number] Dylan King APRN [address] [address] 11/29/2024 12:36:15 11/29/2024 14:31:57 Acute urinary tract infection 074701505 N39.0 increase fluids cx Syncope and collapse 309 599427 R55 if episode happens go to ed Type 2 lexx betes mellitus 78547185 E11.21 Infection of foot due to diabetes mellitus 062717951 E11.628 L08.9 follow up with taty on u antibiotic s- one dose left Health Concerns Section Related Observation LastModified by Organization Detai ls LastModified Time None Recorded Concern Status LastModified by Organization Details LastModified Time None Recorded Payers Encounter Date Sequence Insurance Name Policy Number Policy Elena Covered Member ID Elena Member ID Guarantor Name 11/29/2024 2 FOR LIFE ( - MEDICARE SUPPLEMENT) [id number] Mariano Robert [id number] Jillian Robert 11/29/2024 1 [place] Jillian Robert [id number] Jillian Robert Notes Date Note Type Note Provider Name and Address Organization Details Recorded Time 11/29/2024 text/html Emergency Depart ment Follow-Up RecordReported bypatient.Discharge InformationName of hospital/urgent care patient was seen: ([facility] Patient presented to hospital/urgent care on or around: actual date 11/19/24; Patient presented to hospital for treatment of: (Syncope/low bp); Treatment received by hospital/urgent care: (labs, ct scan, heart monitor); Patient's condition has: improved; Hospital records available at the time of this visit: Yes 74 yr old female presents for an er follow up. pt had a syncope episode in office that lasted more than 30 mins. pt states she could hear people talking but they sounded like they were in a tunnel and she was not able to respond. states she has these freq but they usually do not last long. states she is having memory issues also,forgetful and this has been happening for months but more noticeable lately. Dylan King, PHYSICAL THERAPIST TECHNICIAN [address], [place], [address], [place] - [facility] 11/29/2024 14:13:11 OBGyn Episode No OBEpisode recorded.
--- OUTSIDE RECORDS SUMMARY | 2024-12-03 09:50 | XMS_ITS | Continuity of Care Document ---
Author Organization GEO Ghada Day [facility] Address [address] [place] [address] Care Team Providers Care Delivery Rep Name Role Phone DYLAN KING Primary Care Provider MAKENZIE Dahl Exhibit Electrician STEPH BLAS Electrical Manufacturing Engineer DENIS RAMIREZ Jewelry Mechanic Assessment Encounter Date Assessment Date Assessment LastModified [...] HbA1c (hemoglob in A1c), blood 2024 025 [facility], [address], Jose [address], [place], [address], 11/26/2024 04:08:39 C reactive protein, QN, serum or plasma 2024 025 RABIA [facility], [address], [place], [place], [address], 11/26/2024 04:08:40 erythrocy te sedimenta tion rate by madison n method 2024 025 RABIA [facility], [address], [place] [address], [place], [address], 11/26/2024 04:08:41 CMP, serum or plasma 2024 025 RABIA [facility], [address], [place] [address], [place], [address], 11/26/2024 04:08:38 CBC w/ auto diff 2024 025 RABIA [facility], [address], [place], [place], [address], 11/26/2024 04:08:38 lipid panel, serum 2024 025 RABIA [facility], [address], [place], [place], [address], 11/26/2024 04:08:39 glucose, fingersti ck, blood 2024 025 [facility], [address] [place] [address], [address], 11/19/2024 16:25:32 glucose, fingersti ck, blood 2024 025 [facility], [address] [place] [address], [address], 11/19/2024 16:25:32 TSH + free T4, serum 2024 025 [facility], [address], [place] [address], [place], [address], 11/26/2024 04:08:39 Referral podiatris t referral 2024 025 PEMBERTON Lucia Lozoya Prabhu DPM, [address] [place] [address] [address], [place], [address], 12/02/2024 12:48:[address] referral - memory clinic 2024 025 [facility], [address] [facility], [place], [address], 11/22/2024 09:30:46 Procedures None recorded. Surgeries None recorded. Imaging XR, foot, 3 or more view 2024 025 [facility] (X-Ray), [address] [place] [address] [address], [place], [address], 11/22/2024 12:11:05 electroca rdiogram 2024 025 [facility], [address] [place] [address], [address], 11/19/2024 16:58:29 Medication Orders allopurin ol 100 mg tablet 2024 025 [facility], [address] [place] [address], [address], 11/19/2024 12:07:23 doxycycli ne hyclate 100 mg tablet 2024 025 [facility], [address] [place] [address] [address], [place], [phone], 11/20/2024 12:02:51 Normal Saline Flush 0.9 % injection syringe 2024 025 [facility], [address] [place] [address], [address], 11/29/2024 13:06:21 sodium chloride 0.9 % intraveno us solution 2024 025 [facility], [address] [place] [address], [address], 11/29/2024 13:18:14 Patient TargetsNo targets recorded. 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 cognition memory clinic Referring Physician: [facility], Encounter Date: 11/19/2024 Results Created Date Observation Date Name Description Value Unit Range Abnormal Flag Note LastModifiedBy Organization Detail LastModifiedTime 11/20/19 25 11/19/2024 gluco se, finge rstic k, blood Blood Glucose: mg/dl 118 Not Available [address], [address], 11/19/2024 15:35:59 11/20/19 25 11/19/2024 gluco se, finge rstic k, blood Reference Range (60-100) abnorm al Not Available [address], [address], 11/19/2024 15:35:59 11/20/19 25 11/19/2024 gluco se, finge rstic k, blood Blood Glucose: mg/dl 150 Not Available [address], [address], 11/19/2024 15:35:37 11/20/19 25 11/19/2024 gluco se, finge rstic k, blood Reference Range (60-100) abnorm al Not Available [address], [address], 11/19/2024 15:35:37 11/20/19 25 11/19/2024 elect rocar diogr am No observ ation record ed. efryman [address], [address], 11/19/2024 16:58:35 11/20/19 25 11/19/2024 elect rocar diogr am No observ ation record ed. [email or web address] [address], [place], [address], 11/22/2024 09:08:29 11/23/19 25 11/19/2024 elect rocar diogr am No observ ation record ed. [email or web address] [address], [address], 11/23/2024 16:34:11 11/23/19 25 11/22/2024 XR, foot, 3 or more view No observ ation record ed. [facility] [address], [place], [address], 11/23/2024 18:15:43 11/30/19 25 11/19/2024 cardi ac monit or No observ ation record ed. [facility] [address], [place], [address], 11/30/2024 10:43:31 Result Notes None recorded. Problems Name Problem SNOMED Code Status Onset Date Resolution Date Notes Provider Name and Address Organization Details Recorded Time Type 2 diabetes mellitus 27290920 Active 2021 Dylan Knig, ENDO TECH [address], [place], [address], [place] - [facility] 2 10:07:29 Hypertensive disorder 05128026 Active 2021 Dylan King, ENDO TECH [address], [place], [address], [place] - [facility] 2 10:07:09 Hypercholester olemia 18589762 Active 2021 Dylan King, ENDO TECH [address], [place], [address], [place] [facility] 2 10:07:05 Gastroesophage al reflux disease 521180317 Active 2021 Dylan King, ENDO TECH [address], [place], [address], [place] [facility] 2 10:06:49 Hypothyroidism 02121510 Active 2021 Dylan King APRN [address], [place], [address], [place] [facility] 2 10:07:12 Neuropathy 689471945 Active 2021 Dylan King, ENDO TECH [address], [place], [address], [place] [facility] 2 10:07:19 Arthritis 8131906 Active 2021 Dylan King, ENDO TECH [address], [place], [address], [place] [facility] 2 10:06:47 Coronary arterioscleros is 41316357 Active 2021 Dylan King, ENDO TECH [address], [place], [address], [place] [facility] 2 10:18:21 Coronary artery bypass grafts x 3 Active 2021 Dylan King, ENDO TECH [address], [place], [address], [place] [facility] 2 10:18:34 Problem Notes None recorded. Procedures Surgical History Date Name Laterality Status Provider Name and Address Organization Details Recorded Time 025 Medication Reconcilliation completed Fina Vasquez [place] - [facility] 11/29/2024 13:05:51 025 Advance Care Planning completed Fian Vasquez [place] [facility] 11/19/2024 10:41:02 025 IV Infusion completed Fina Vasquez [place] [facility] 11/19/2024 15:44:19 025 Functional Status Assessed completed Fina Vasquez [place] [facility] 11/19/2024 10:41:02 024 Date of Last Colonoscopy completed Dia Youssef [place] - [facility] 2024 13:27:50 024 Medication Reconcilliation completed Fina Vasquez [place] [facility] 12/02/2023 10:36:18 023 In and Out Catheterization completed Margarita Banks, GAMA [address], [place], [address] [place] - [facility] 02/13/2023 14:34:26 023 Medication Reconcilliation completed Fina Vasquez [place] [facility] 01/31/2023 10:55:15 023 Medication Reconcilliation completed Finaradha Vasquez [place] [facility] 01/06/2023 10:21:27 023 Medication Reconcilliation completed Fina Vasquez [place] [facility] 12/12/2022 10:55:58 023 Medication Reconcilliation completed Fina Vasquez [place] [facility] 11/25/2022 14:44:11 023 Date of [...] Name and Address Organization Details Recorded Time 197283 lisinopri l medicatio n rash Not available high 12/17/2021 68975 RxNorm Fina Vasquez null, [place] - [facility] 2 10:17:08 354356 Oxycontin medicatio n hallucina tions moderate high 12/17/2021 70150 6 RxNorm Fina Vasquez [place], [place] - [facility] 2 10:18:04 002083 codeine medicatio n rash moderate high 12/17/2021 2670 RxNorm Fina Vasquez [place], [place] - [facility] 2 10:16:43 897632 acetamino phen / oxycodone medicatio n hallucina tions severe high 12/17/2021 35128 3 RxNorm Fina Vasquez [place], [place] - [facility] 2 10:17:43 846454 cephalexi n medicatio n eye swelling Not available low 11/11/2022 2231 RxNorm Fina Vasquez null, [place] - [facility] 3 12:54:33 397656 Macrobid medicatio n diarrhea moderate high 01/13/2023 92941 1 RxNorm vomit ing and diarr hea Fina Vasquez null, [place] - [facility] 3 10:16:12 Medications Name Sig [...] 7 DAYS -- FINISH ALL MEDICINE -- 09/07 /2023 completed Not Available Not Available Not Available [...] Not Available Not Available Not Available [facility] [place] 3 mL 08/22 completed Not Available Not [...] 5 151.13 cm 20 /min 28 kg/m2 52246.5 2 g 84 /min 94 % 94 [...] Or The Highest Degree You Have Received? [id number] Information not available 12/17/2021 Have There Been Any Changes To Your Family Or Social Situation? No Information no t available 07/14/2023 What Is The Fluoride Status Of Your Home? Unknown Information not available 07/14/2023 Have You Recently Or Are You Planning To Travel To An Area With Zika Virus? No Information not available 07/14/2023 Do You Have A Medical Power Of Elect Equip Maint Eng? No Information not available 07/14/2023 What Was [...] anxious, or unable to sleep at night)? [id number] Information not available 12/20/2021 Do you have [...] Influenza, high-dose, quadrivalent, PF 02/21/2022 completed Dylan King APRN [address], [place], [address], [place] [facility] 03/26/2022 17:30:58 Influenza, high-dose, quadrivalent, PF 04/25/2023 completed Fina [place] [facility] 04/25/2023 13:24:26 Influenza, high-dose, trivalent, PF 02/24/2024 completed F[place] [facility] 03/11/2024 17:52:11 COVID-19, mRNA, LNP-S, PF, 100 mcg/0.5mL dose or 50 mcg/0.25mL dose 08/02/2020 completed F[place] [facility] 08/22/2022 14:19:25 COVID-19, mRNA, LNP-S, PF, 100 mcg/0.5mL dose or 50 mcg/0.25mL dose 08/31/2020 completed F[place] [facility] 08/22/2022 14:19:25 COVID-19, mRNA, LNP-S, PF, 100 mcg/0.5mL dose or 50 mcg/0.25mL dose 04/11/2021 completed F[place] [facility] 08/22/2022 14:19:25 Tdap 04/20/2013 completed F[place] [facility] 08/22/2022 14:19:25 zoster live 04/20/2013 completed F[place] [facility] 08/22/2022 14:19:25 Influenza, high-dose, trivalent, PF 05/16/2021 completed F[place] [facility] 08/22/2022 14:19:25 Past Encounters Encounter ID Performer Location Encounter Start Date Encounter Closed Date Diagnosis/Indication Diagnosis SNOMED-CT Code Diagnosis ICD10 Code Diagnosis Note [id number] Dylan King APRN [address] [address] 11/19/2024 10:13:18 11/19/2024 13:47:54 Adult health examination 804021342 Z00.00 Depression screening 171 237448 Z13.31 A depression screening was completed via a standardiz ed screening tool. 5 minutes were spent discussing depression screening results and risk factors. Examinatio n of blood pressure 824293310 Z01.30 Diet education 86307305 Z71.3 Counseling 493147448 Z71 .82 Exercise counseling . Patient encouraged to exercise 30 minutes 5 days a week. At [facility] ed risk for falls 950725146 Z91.81 STEADI FAST screening score of _12____. Advance care planning 71 9954487 Z71.89 Gout 41541562 M10.9 Hypertensive disorder 38 698805 I10 Hypercholesterolemia 136 79632 E78.00 Type 2 lexx betes mellitus 93721398 E11.21 Hypothyroidism 07943659 E03.9 Neuropathy 903450817 G62 .9 Pt compliant with plan of careKasper reviewed and appropriat emedicatio n compliance discussedC ontrol substance agreement on fileuds: Hepatitis C screening declined 0551551799 5105 Z53.20 Ulcer of t oe due to type 2 diabetes mellitus 3988261959 22557 E11.621 L97.529 follow up with podiatryan tibioticsb etadine soaked dressings change dressing daily Pain of le ft knee joint 0372253325 72302 M25.562 Impaired cognition 05900 6002 G31.84 Low blood pressure 88596 003 I95.9 Syncope and collapse 309 358046 R55 if episode happens go to ed Health Concerns Section Related Observation LastModified by Organization Detai ls LastModified Time None Recorded Concern Status LastModified by Organization Details LastModified Time None Recorded Payers Encounter Date Sequence Insurance Name Policy Number Policy Elena Covered Member ID Elena Member ID Guarantor Name 11/19/2024 2 FOR LIFE ( - MEDICARE SUPPLEMENT) [id number] Mariano Robert [id number] Jillian Robert 11/19/2024 1 [place] Jillian Robert [id number] Jillian Robert Notes Date Note Type Note [...] as EMS personnel arrived. Patient taken to [facility]. Dylan King, ENDO TECH [address], [place], [address], [place] - [facility] 11/19/2024 16:25:37 OBGyn Episode No OBEpisode recorded.
--- OUTSIDE RECORDS SUMMARY | 2024-12-03 09:50 | XMS_ITS | Data Portability ---
Author Organization SABAS [facility] Address [address] [facility] [place] [address] Assessment Encounter Date Assessment Date Assessment LastModified [...] Orders Reglan 5 mg tablet 2017 018 [facility], [address] [place] [address] [place], [id number], 8 15:03:03 scopolamin e 1 mg over 3 days transderma l patch 2017 018 [facility], [address] [place] [address] [address], [place], [phone], 2 10:19:31 Patient TargetsNo targets recorded. Patient InstructionsNo instructions recorded. Reason for Referral None Reported. Results Created Date Observation Date Name Description Value Unit Range Abnormal Flag Note LastModifiedBy Organization Detail LastModifiedTime 05/11/20 18 05/11/2018 XR, lumbo sacra l spine , 2 or [address] [address] Chloezenaida balderrama Name: JILLIAN balderrama : 951 Gabrielle balderrama Orderi ng Provid er: DECLAN DEMPSEY [...] Coni Barker MD on 018 3:54 PM [email or web address] [facility] Radiology [facility] [address] [place] [address], [address], 05/11/2018 17:22:37 Result Notes Documentation Provider Name and Address Organization Details Recorded Time Xr, Lumbosacral Spine, 2 Or 3 View : [facility] [address] [place] [address] Patient Name: JILLIAN ORBERT Patient : [id number] Patient Ordering Provider: THOMPSON DEMPSEY EXAM DATE: 05/11/2018 EXAM: XR LUMBAR AP/LAT CLINICAL INFORMATION: Postoperative. IMAGES PROVIDED: AP, lateral, and coned-down views of the lumbar spine. COMPARISON: None. FINDINGS AND IMPRESSION: Spinal fusion is noted at L2-L5 level with pedicular screws and connecting rods. Surgical hardware is satisfactorily placed. No evidence of loosening or infection is seen. Degenerative changes are seen at other levels. Interpreted By: Amilcar Barker MD PSON DEMPSEY MD [address] [place] [address], [address], [facility] 05/11/2018 17:22:37 Procedures Surgical History Date Name Laterality Status Provider Name and Address Organization Details Recorded Time 04/08/20 18 POSTERIOR LUMBAR INTERBODY FUSION, SINGLE INTERSPACE (SURG) completed Katt Elam [facility] 04/13/2018 09:04:24 tonsillectomy completed [facility] 03/09/2018 14:07:34 Appendectomy completed [facility] 03/09/2018 14:07:44 section completed [facility] 03/09/2018 14:08:11 Cholecystectomy w/cholang completed [facility] 03/09/2018 14:08:34 complete repair of rotator cuff completed [facility] 03/09/2018 14:08:48 hysterectomy completed Angi Evans [facility] 03/09/2018 14:08:59 Neck Surgery completed Angi Evans [facility] 03/09/2018 14:09:09 coronary artery bypass graft completed Angi Evans [facility] 03/09/2018 14:09:28 Imaging Results None recorded. Procedure Notes None recorded. Medical Equipment None Reported. Allergies Allergen ID Allergen Name Allergen Category Reaction Reaction Severity Criticality Documentation Date Start Date Code Code System Note Provider Name and Address Organization Details Recorded Time 143722 codeine medicatio n Not available Not available Not available 05/03/20162012 2670 RxNorm Comme nt: Creat ed By: Herlinda glynn Date: 2012 3:01: 29 PM; Not Available [facility] 6 09:24:07 812626 acetamino phen / oxycodone medicatio n Not available Not available Not available 03/09/2018 12834 3 RxNorm Angi Evans [facility] 8 14:10:48 088125 lisinopri l medicatio n rash Not available Not available 07/24/2023 42082 RxNorm Nikki Marcano [facility] 4 11:37:15 629860 cephalexi n medicatio n eye swelling Not available Not available 07/24/2023 2231 RxNorm Nikki Marcano [facility] 4 11:37:15 242804 Oxycontin medicatio n hallucina tions moderate Not available 07/24/2023 59631 6 RxNorm Nikki Marcano [facility] 4 11:37:15 154283 Macrobid medicatio n diarrhea moderate Not available 07/24/2023 03946 1 RxNorm Nikki Marcano [facility] 4 11:37:15 Medications Name Sig Start Date [...] tablet Not Available Not Available Not Available [place] 7.5 mg-325 mg tablet Take 1 tablet [...] Available Not Available Not Avai lable [facility] [place] 3 mL active Not Available Not Available [...] Sure Comfort Pen Needle 32 gauge x active Not Available Not Available Not Available [...] Updated DateTime 03/09/2018 149.86 cm 29.1 kg/m2 42853.3 g 130 mm[Hg] 80 mm[Hg] Angi Evans [facility] 8 14:10:30 Date Recorded Body height Body mass index (BMI) Body weight Systolic blood pressure Diastolic blood pressure Provider Name and Address Organization Details Last Updated DateTime 05/11/2018 149.86 cm 29.1 kg/m2 02878.3 g 130 mm[Hg] 82 mm[Hg] Angi Evans [facility] 8 16:06:10 Social History Question Answer Notes LastModified by Organizat ion Details LastModified Time Tobacco Smoking Status Never Smoker Angi Gonzalesholz [facility] 03/09/2018 14:07:26 What Was The [...] Influenza, high-dose, quadrivalent, PF 02/21/2022 completed Nikki Baileyong [facility] 07/24/2023 11:37:18 Influenza, high-dose, quadrivalent, PF 04/25/2023 [facility] 11:37:18 COVID-19, mRNA, LNP-S, PF, 100 mcg/0.5mL dose or 50 mcg/0.25mL dose 08/02/2020 completed Nikki [facility] 07/24/2023 11:37:18 COVID-19, mRNA, LNP-S, PF, 100 mcg/0.5mL dose or 50 mcg/0.25mL dose 08/31/2020 completed Nikki Jeet [facility] 07/24/2023 11:37:18 COVID-19, mRNA, LNP-S, PF, 100 mcg/0.5mL dose or 50 mcg/0.25mL dose 04/11/2021 completed Nikki Baileyong [facility] 07/24/2023 11:37:18 Tdap 04/20/2013 completed Nikki Marcano [facility] 07/24/2023 11:37:18 zoster live 04/20/2013 [facility] 11:37:18 Influenza, high-dose, trivalent, PF 05/16/2021 [facility] 11:37:18 Past Encounters Encounter ID Performer Location Encounter Start Date Encounter Closed Date Diagnosis/Indication Diagnosis SNOMED-CT Code Diagnosis ICD10 Code Diagnosis Note [id number] THOMPSON DEMPSEY MD [facility] [address] [place] [address] 03/09/2018 13:17:46 03/09/2018 14:49:59 Lumbar spondylolisthesis 1007109306 72747 M43.16 [id number] ELVER FAIRCHILD PA-C [facility] [address] [place] [address] 04/20/2018 14:08:30 04/20/2018 15:04:27 Nausea 161782747 R11.0 [id number] THOMPSON DEMPSEY MD [facility] [address] [place] [address] 05/11/2018 15:08:15 05/12/2018 10:01:34 Postoperative care 670473788 Z48.89 Health Concerns Section Related Observation LastModified by Organization Detai ls LastModified Time None Recorded Concern Status LastModified by Organization Details LastModified Time None Recorded Advance Directives Directive None Recorded Payers Insurance Date Sequence Insurance Name Policy Number Policy Elena Covered Member ID Elena Member ID Guarantor Name 05/03/2020 2 FOR LIFE ( - MEDICARE SUPPLEMENT) Jillian Avalosan [id number] Jillian Nogueira [place] 05/03/2020 1 [place] Jillian Nogueira Yesica [id number] Jillian Nogueira Yesica 06/19/2018 2 FOR LIFE ( - MEDICARE SUPPLEMENT) Jillian Yesica [id number] Jillian Nogueira Yesica Notes Date Note Type Note Provider Name [...] right leg. She underwent physical therapy at [facility]. She is unable take anti-inflammatorie s due to renal issues. She has trialed steroid shots as well as a TENS unit. She is not currently on any narcotic pain medication. She takes Neurontin for diabetic pain Sada perales, [facility] 04/06/2018 17:11:28 05/11/2018 text/html Mrs. Jillian oneill [...] to today's follow-up. THOMPSON DEMPSEY MD [address] [facility] [place], [address], [facility] 05/11/2018 17:17:16 OBGyn Episode No OBEpisode recorded.
--- OUTSIDE RECORDS SUMMARY | 2024-12-03 09:50 | XMS_ITS | Data Portability ---
Author Organization [facility] Address [address] [place] [address] Assessment No assessment recorded. Plan of Treatment [...] mg/mL suspensio n for injection 2024 025 [place] [address] [facility] - [address], [address], 09/01/2024 10:31:05 bupivacai ne HCl 0.5 % (5 mg/mL) injection solution [address] - [address], [address], 09/01/2024 10:31:05 Kenalog 10 mg/mL suspensio n for injection 2023 024 [place] [address] [facility] - [address], [address], 05/10/2024 13:53:03 bupivacai ne HCl 0.5 % (5 mg/mL) injection solution [address] [facility] - [address], [address], 05/10/2024 13:53:03 Kenalog 10 mg/mL suspensio n for injection [address] [facility] - [address], [address], 03/09/2024 16:28:55 bupivacai ne HCl 0.5 % (5 mg/mL) injection solution [address] - [address], [address], 03/09/2024 16:28:55 Patient TargetsNo targets recorded. Patient InstructionsNo instructions recorded. Reason for Referral None Reported. Medical Equipment None Reported. Allergies No known drug allergies Medications Name Sig Start Date Stop Date Status Note LastModified by Organization Details LastModified Time fluconazole 100 mg tablet TAKE ONE TABLET BY MOUTH A ONE-TIME DOSE DIRECTED active Not Available Not Available No [...] Available fosfomycin tromethamine 3 gram oral packet TAKE ONE (1) PACKET EVERY OTHER DAY BY ORAL ROUTE FOR SIX (6) DAYS. active Not Available Not Available No [...] Not Available Not Available Not Avai lable benzonatate 100 mg capsule TAKE ONE CAPSULE BY MOUTH TWICE DAILY -SWALLOW WHOLE. DO NOT CRUSH OR CHEW- active Not Available Not Available No t Available Synthroid 112 mcg tablet active Not Available Not Available N ot Available insulin lispro (U-100) 100 unit/mL subcutaneous solution active Not Available Not Available Not Available estradiol 0.01% (0.1 mg/gram) vaginal cream active Not Available Not Availabl e Not Available levofloxacin 750 mg tablet TAKE ONE TABLET BY MOUTH EVERY DAY active Not Available Not Available No t Available ondansetron 4 mg disintegratin g tablet DISSOLVE ONE TABLET BY MOUTH TWICE DAILY NEEDED active Not Available Not Available No t Available doxycycline hyclate 100 mg tablet TAKE ONE TABLET BY MOUTH TWICE DAILY FOR 10 DAYS active Not Available Not Available No t Available amoxicillin 875 mg-potassium clavulanate 125 mg tablet TAKE ONE TABLET BY [...] Influenza, high-dose, quadrivalent, PF 02/21/2022 completed Diann Sweeney-Pitakis null, [place] - [facility] - [place] & [place] 05/10/2024 13:41:40 Influenza, high-dose, quadrivalent, PF 04/25/2023 completed Diann Sweeney-Pitakis null, [place] [facility] [place] 05/10/2024 13:41:40 COVID-19, mRNA, LNP-S, PF, 100 mcg/0.5mL dose or 50 mcg/0.25mL dose 08/02/2020 completed Diann Sweeney-Pitakis null, [place] - [facility] [place] & [place] 05/10/2024 13:41:40 COVID-19, mRNA, LNP-S, PF, 100 mcg/0.5mL dose or 50 mcg/0.25mL dose 08/31/2020 completed Diann Sweeney-Pitakis null, [place] - [facility] [place] & [place] 05/10/2024 13:41:40 COVID-19, mRNA, LNP-S, PF, 100 mcg/0.5mL dose or 50 mcg/0.25mL dose 04/11/2021 completed Diann Sweeney-Pitakis null, [place] [facility] [place] & [place] 05/10/2024 13:41:41 Tdap 04/20/2013 completed Diann Sweeney-Pitakis [place] [facility] [place] 05/10/2024 13:41:41 zoster live 04/20/2013 completed Diann Sweeney-Pitakis [place] [facility] [place] 05/10/2024 13:41:41 Influenza, high-dose, trivalent, PF 02/24/2024 completed Mercedez Yen null, [place] - [facility] [place] & [place] 09/01/2024 10:16:21 Influenza, high-dose, trivalent, PF 05/16/2021 completed Diann Sweeney-Gunner [facility], [place] - [facility] - [place] & [place] 05/10/2024 13:41:41 Past Encounters Encounter ID Performer Location Encounter Start Date Encounter Closed Date Diagnosis/Indication Diagnosis SNOMED-CT Code Diagnosis ICD10 Code Diagnosis Note [id number] DO AAKASH REYES [facility] [place] [address] 9 03/09/2024 13:25:41 03/09/2024 14:26:14 Bursitis of right hip 167147564 M06.497 [id number] DO AAKASH REYES [place] [address] 9 05/10/2024 13:14:55 05/10/2024 13:48:55 Bursitis of right hip 118355833 M06.195 [id number] DO AAKASH REYES [place] [address] 9 09/01/2024 10:05:42 09/01/2024 10:22:08 Bursitis of right hip 823399481 M06.251 Health Concerns Section Related Observation LastModified by Organization Detai ls LastModified Time None Recorded Concern Status LastModified by Organization Details LastModified Time None Recorded Advance Directives Directive None Recorded Payers Insurance Date Sequence Insurance Name Policy Number Policy Elena Covered Member ID Elena Member ID Guarantor Name 11/30/2024 2 FOR LIFE () Jillian Robert [id number] Jillian Robert 11/30/2024 1 [place] Jillian S Yesica [id number] Jillian Robert Notes Date Note Type Note Provider Name and Address Organization Details Recorded Time 03/09/2024 text/html Pt presents toda y with right hip pain DOO: 1 year. No injury. Pt was seeing Dr. Lawson at [facility] and was told that she has Bursitis, he then referred her to the clinic. Pt had her last hip injection on 03.11.2023. Injections no longer seem to be helping. Pt takes aspirin and ibuprofen for pain. Pt has been using a walker since pain in hip started. Hx of: L5-S1 fusion on 08.14.2022. Right hip X-rays taken @ [facility] in [place] on 07.23.2023.[id number] LASHELL TEJADA, DO [address], [place], [address], [facility] & [place] 03/10/2024 07:38:07 05/10/2024 text/html 73 y/o female here today for follow up RIGHT bursa hip joint was injected .07.02. Helped up until 2 weeks ago, at least 75% but pain isn't as bad right now prior to getting injection. Ambulating with rollator walker. Taking Ibu PRN. [id number] LASHELL TEJADA, DO [address], [place], [address], [facility] & [place] 05/10/2024 13:50:09 09/01/2024 text/html Pt is here wanting another rt hip bursa inj. She reports the inj has been effective for 3 months-[id number] LASHELL TEJADA, DO [address], [place], [address], [facility] & [place] 09/01/2024 13:19:42 OBGyn Episode No OBEpisode recorded.
--- OUTSIDE RECORDS SUMMARY | 2024-12-03 09:50 | XMS_ITS | Clinical Summary ---
Author Organization [facility] Address [address] [id number] Care Team Providers Care Bookbinder Chief Name Role Phone Roman King TAX ECONOMIST Primary Care Provider [phone] Allergies Active Allergy Reactions Criticality Noted Date [...] Disposable Pump ([facility]ip[facility] DASH Pods, Gen 4,) [facility] Active Insulin Disposable Pump (Omnipod DASH Pods, Gen 4,) [facility] [place] Omnipod Dash Pods (Gen 4) subcutaneous cartridge [...] Description 12/17/2024 12:00 PM EDT Office Visit [facility] [address] [place] [address] Isabel Womack, TAX ECONOMIST [address] [place] [address] Health Maintenance Due Date Last [...] (2 - Td or Tdap) 04/20/2023 04/20/2013 [id number] Vaccine (4 - season) 2024 04/11/2021, 08/31/2020, [...] age to complete this topic Insurance MEDICARE [facility] Care Teams Bookbinder Chief Relationship Specialty Start Date End Date Roman King APRN [address] [place] [id number] PCP - General 01/21/22
--- OUTSIDE RECORDS SUMMARY | 2024-12-03 09:51 | XMS_ITS | Data Portability ---
Author Organization [facility] Address [address] [place] [address] Care Team Providers Care Engine Test Cell Technician Name Role Phone DYLAN LEBRON Primary Care Provider MAKENZIE Dahl Event Planning Manager [phone] STEPH BLAS Clearing Inspector DENIS RAMIREZ Street Contractor Assessment Encounter Date Assessment Date Assessment LastModified [...] Check List reviewed and printed for patient. nicole Not available 11/19/2024 10:41:02 11/29/2024 11/29/2024 -Medications wer e reviewed and any necessary updates and renewals were made, patient instructed to complete as prescribed. -The potential side effects of medications were discussed. -Counseling was done on care goals and ways to prevent future hospitalizations. -Further treatment per orders listed below. [email or web address] Not available 11/29/2024 13:05:51 Plan of Treatment Reminders Order Date Submit Date Provider Last Modified By Organization Details Last Modified Time Details Appointments Follow Up 2024 01:00P Rosales Banks APRN Not available Not available Not available Lab magnesium , serum or plasma 2024 025 RABIA [facility], [address], [address], [place], [address], 11/29/2024 14:05:50 urinalysi s, dipstick 2024 025 [facility], [address] [place], [address], 11/29/2024 15:53:01 culture, urine 2024 025 RABIA [facility], [address], [address], [place], [address], 11/29/2024 14:05:50 C-peptide , serum 2024 025 RABIA [facility], [address], [address], [place], [address], 11/29/2024 14:05:51 HbA1c (hemoglob in A1c), blood 2024 025 RABIA [facility], [address], [address], [place], [address], 11/26/2024 04:08:39 C reactive protein, QN, serum or plasma 2024 025 RABIA [facility], [address], [address], [place], [address], 11/26/2024 04:08:40 erythrocy te sedimenta tion rate by westergre n method 2024 025 RABIA [facility], [address], [address], [place], [address], 11/26/2024 04:08:41 CMP, serum or plasma 2024 025 RABIA [facility], [address], [address], [place], [address], 11/26/2024 04:08:38 CBC w/ auto diff 2024 025 RABIA [facility], [address], [address], [place], [address], 11/26/2024 04:08:38 lipid panel, serum 2024 025 RABIA [facility], [address], [address], [place], [address], 11/26/2024 04:08:39 glucose, fingersti ck, blood 2024 025 [facility], [address] [place] [address], [phone], 11/19/2024 16:25:32 glucose, fingersti ck, blood 2024 025 [facility], [address] [place] [address], [address], 11/19/2024 16:25:32 TSH + free T4, serum 2024 025 RABIA [facility], [address], [address], [place], [address], 11/26/2024 04:08:39 urinalysi s, dipstick [address] [place] [address], [address] [place] [address], [phone], 10/08/2024 14:10:34 infectiou s disease panel 2024 025 ELKO [facility], [address], [place], [address], 10/11/2024 07:49:41 vaginal pathogens panel, ERNESTINA+probe , vaginal fluid 2024 025 ELKO [facility], [address], [address], [place], [address], 09/30/2024 01:06:56 urinalysi s, dipstick 2024 025 [facility], [address] [place] [address], [address], 09/27/2024 14:06:26 culture, urine 2024 025 ELKO [facility], [address], [address], [place], [address], 09/30/2024 01:06:56 drug screen, urine 2024 025 [facility], [address] [place] [address], [id number], 09/02/2024 15:04:[address] referral - possible seizures 2024 025 [facility], [address] [place] [address], [address], 11/30/2024 08:56:09 podiatris t referral 2024 025 RABIA Pelletier DPM, [address], [place], [address], 12/02/2024 12:48:[address] referral - memory clinic 2024 025 [facility], [address] [place] [address], [place], [address], 11/22/2024 09:30:46 Procedures None recorded. Surgeries None recorded. Imaging XR, foot, 3 or more view 2024 [facility] [address] [place] [address] E, [place], [address], 11/22/2024 12:11:05 electroca rdiogram 2024 [facility], [address] [place] [address], [phone], 11/19/2024 16:58:29 Medication Orders levofloxa idalia 250 mg tablet 2024 [facility], [address] [place] [address], [address], 11/29/2024 14:07:28 allopurin ol 100 mg tablet 2024 [facility], [address] [place] [address], [address], 11/19/2024 12:07:23 doxycycli ne hyclate 100 mg tablet 2024 [facility], [address] [place] [address], [id number], 11/20/2024 12:02:51 Normal Saline Flush 0.9 % injection syringe 2024 [facility], [address] [place] [address], [address], 11/29/2024 13:06:21 sodium chloride 0.9 % intraveno us solution 2024 [facility], [address] [place] [address], [address], 11/29/2024 13:18:14 estradiol 0.01% (0.1 mg/gram) vaginal cream 2024 025 [facility], [address] [place] [address], [address], 10/08/2024 14:10:36 methenami ne hippurate 1 gram tablet 2024 025 [facility], [address] [place] [address], [address], 10/08/2024 14:11:40 benzonata te 100 mg capsule 2024 025 [email or web address] [facility], [address] [place] [address], [id number], 10/08/2024 13:34:31 gabapenti n 600 mg tablet 2024 025 [facility], [address] [place] [address], [address], 09/02/2024 14:37:07 Patient TargetsNo targets recorded. Patient Instructions Encounter Date Encounter Id Patient Instructions Last Modified By Organization Details Last Modified Time 10/08/2024 [id number] high blood pressure: care instructions Not available [...] care instructions Not available 10/08/2024 14:10:34 11/19/2024 [id number] advance directives: care instructions efryman Not available 11/19/2024 12:07:23 learning about depression efryman Not available 11/19/2024 12:07:23 preventing falls : care instructions efryman Not available 11/19/2024 12:07:23 medicare preventive services guide efryjudah Not available 11/19/2024 12:07:23 Reason for Referral 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, Encounter Date: 11/19/2024 Neurologist Referral for Imp aired cognition memory clinic Referring Physician: Dylan Lebron [facility], Encounter Date: 11/19/2024 Neurologist Referral for Syn cope and collapse possible seizures Referring Physician: Dylan Lebron [facility], Encounter Date: 11/29/2024 Results Created Date Observation Date Name Description Value Unit Range Abnormal Flag Note LastModifiedBy Organization Detail LastModifiedTime 08/25/1908/24/2024 MICRO SENSI TIVIT Y abnormal status abnormal Not Available [facility] [address], [place], [address], 08/27/2024 11:27:28 08/25/19 25 08/24/2024 MICRO SENSI TIVIT Y abnormal status high Not Available [facility] [address], [place], [address], 08/27/2024 11:27:28 08/25/19 25 08/24/2024 MICRO SENSI TIVIT Y abnormal status susceptib le Not Available [facility] [address], [place], [address], 08/27/2024 11:27:28 08/25/19 25 08/24/2024 MICRO SENSI TIVIT Y ampicillin <=4 S susceptib le Not Available [facility] [address], [place], [address], 08/27/2024 11:27:28 08/25/19 25 08/24/2024 MICRO SENSI TIVIT Y amikacin <=8 S susceptib le Not Available [facility] [address], [place], [address], 08/27/2024 11:27:28 08/25/19 25 08/24/2024 MICRO SENSI TIVIT Y aztreonam <=2 S susceptib le Not Available [facility] [address], [place], [address], 08/27/2024 11:27:28 08/25/19 25 08/24/2024 MICRO SENSI TIVIT Y ceftazidime <=2 S susceptib le Not Available [facility] [address], [place], [address], 08/27/2024 11:27:28 08/25/19 25 08/24/2024 MICRO SENSI TIVIT Y ciprofloxaci n <=0.25 S susceptib le Not Available [facility] [address], [place], [address], 08/27/2024 11:27:28 08/25/19 25 08/24/2024 MICRO SENSI TIVIT Y ceftriaxone <=1 S susceptib le Not Available [facility] [address], [place], [address], 08/27/2024 11:27:28 08/25/19 25 08/24/2024 MICRO SENSI TIVIT Y cefepime <=1 S susceptib le Not Available [facility] [address], [place], [address], 08/27/2024 11:27:28 08/25/19 25 08/24/2024 MICRO SENSI TIVIT Y nitrofuranto in <=16 S susceptib le Not Available [facility] [address], [place], [address], 08/27/2024 11:27:28 08/25/19 25 08/24/2024 MICRO SENSI TIVIT Y gentamicin <=2 S susceptib le Not Available [facility] [address], [place], [address], 08/27/2024 11:27:28 08/25/19 25 08/24/2024 MICRO SENSI TIVIT Y levofloxacin <=0.5 S susceptib le Not Available [facility] [address], [place], [address], 08/27/2024 11:27:28 08/25/19 25 08/24/2024 MICRO SENSI TIVIT Y meropenem <=0.5 S susceptib le Not Available [facility] [address], [place], [address], 08/27/2024 11:27:28 08/25/19 25 08/24/2024 MICRO SENSI TIVIT Y tobramycin <=2 S susceptib le Not Available [facility] [address], [place], [address], 08/27/2024 11:27:28 08/25/19 25 08/24/2024 MICRO SENSI TIVIT Y ampicillin/s ulbactam 4/2 S susceptib le Not Available [facility] [address], [place], [address], 08/27/2024 11:27:28 08/25/19 25 08/24/2024 MICRO SENSI TIVIT Y trimethoprim /sulfamethox azole <=0.5/ 9.5 S susceptib le Not Available [facility] [address], [place], [address], 08/27/2024 11:27:28 08/25/19 25 08/24/2024 MICRO SENSI TIVIT Y tetracycline <=2 S susceptib le Not Available [facility] [address], [place], [address], 08/27/2024 11:27:28 08/25/19 25 08/24/2024 MICRO SENSI TIVIT Y piperacillin /tazobactam <=2/4 S susceptib le Not Available [facility] [address], [place], [address], 08/27/2024 11:27:28 08/25/19 25 08/24/2024 MICRO SENSI TIVIT Y ertapenem <=0.25 S susceptib le Not Available [facility] [address], [place], [address], 08/27/2024 11:27:28 08/25/19 25 08/24/2024 MICRO SENSI TIVIT Y organism Esch. coli Not Available [facility] [address], [place], [address], 08/27/2024 11:27:28 08/25/19 25 08/24/2024 RESIS SVETLANA MCWILLIAMS RS ampc resistance marker Not Detect ed normal Not Available [facility] [address], [place], [address], 08/27/2024 11:27:27 08/25/19 25 08/24/2024 RESIS SVETLANA MCWILLIAMS RS carbapenem resistance markers Not Detect ed normal Not Available [facility] [address], [place], [address], 08/27/2024 11:27:27 08/25/19 25 08/24/2024 RESIS SVETLANA MCWILLIAMS RS esbl resistance markers Not Detect ed normal Not Available [facility] [address], [place], [address], 08/27/2024 11:27:27 08/25/19 25 08/24/2024 RESIS SVETLANA MCWILLIAMS RS macrolide resistance markers Detect ed abnormal Not Available [facility] [address], [place], [address], 08/27/2024 11:27:27 08/25/19 25 08/24/2024 RESIS SVETLANA MCWILLIAMS RS quinolone resistance markers Not Detect ed normal Not Available [facility] [address], [place], [address], 08/27/2024 11:27:27 08/25/19 25 08/24/2024 CODY HERCULES vancomycin resistance markers Not Detect ed normal Not Available [facility] [address], [place], [address], 08/27/2024 11:27:27 08/25/19 25 08/25/2024 UTI ID PANEL COMPL ETE, PCR garry albicans Not Detect ed not detect ed normal Not Available [facility] [address], [place], [address], 08/27/2024 11:27:26 08/25/19 25 08/25/2024 UTI ID PANEL COMPL ETE, PCR garry glabrata Not Detect ed not detect ed normal Not Available [facility] [address], [place], [address], 08/27/2024 11:27:26 08/25/19 25 08/25/2024 UTI ID PANEL COMPL ETE, PCR garry krusei Not Detect ed not detect ed normal Not Available [facility] [address], [place], [address], 08/27/2024 11:27:26 08/25/19 25 08/25/2024 UTI ID PANEL COMPL ETE, PCR garry lusitaniae Not Detect ed not detect ed normal Not Available [facility] [address], [place], [address], 08/27/2024 11:27:26 08/25/19 25 08/25/2024 UTI ID PANEL COMPL ETE, PCR garry parapsilosis Not Detect ed not detect ed normal Not Available [facility] [address], [place], [address], 08/27/2024 11:27:26 08/25/19 25 08/25/2024 UTI ID PANEL COMPL ETE, PCR garry tropicalis Not Detect ed not detect ed normal Not Available [facility] [address], [place], [address], 08/27/2024 11:27:26 08/25/19 25 08/25/2024 UTI ID PANEL COMPL ETE, PCR enterobacter cloacae Not Detect ed not detect ed normal Not Available [facility] [address], [place], [address], 08/27/2024 11:27:26 08/25/19 25 08/25/2024 UTI ID PANEL COMPL ETE, PCR enterococcus faecalis High not detect ed high Not Available [facility] [address], [place], [address], 08/27/2024 11:27:26 08/25/19 25 08/25/2024 UTI ID PANEL COMPL ETE, PCR escherichia coli High not detect ed high Not Available [facility] [address], [place], [address], 08/27/2024 11:27:26 08/25/19 25 08/25/2024 UTI ID PANEL COMPL ETE, PCR klebsiella oxytoca Not Detect ed not detect ed normal Not Available [facility] [address], [place], [address], 08/27/2024 11:27:26 08/25/19 25 08/25/2024 UTI ID PANEL COMPL ETE, PCR klebsiella pneumoniae Not Detect ed not detect ed normal Not Available [facility] [address], [place], [address], 08/27/2024 11:27:26 08/25/19 25 08/25/2024 UTI ID PANEL COMPL ETE, PCR morganella morganii Not Detect ed not detect ed normal Not Available [facility] [address], [place], [address], 08/27/2024 11:27:26 08/25/19 25 08/25/2024 UTI ID PANEL COMPL ETE, PCR mycoplasma hominis Not Detect ed not detect ed normal Not Available [facility] [address], [place], [address], 08/27/2024 11:27:26 08/25/19 25 08/25/2024 UTI ID PANEL COMPL ETE, PCR proteus mirabilis Not Detect ed not detect ed normal Not Available [facility] [address], [place], [address], 08/27/2024 11:27:26 08/25/19 25 08/25/2024 UTI ID PANEL COMPL ETE, PCR providencia stuartii Not Detect ed not detect ed normal Not Available [facility] [address], [place], [address], 08/27/2024 11:27:26 08/25/19 25 08/25/2024 UTI ID PANEL COMPL ETE, PCR pseudomonas aeruginosa Not Detect ed not detect ed normal Not Available [facility] [address], [place], [address], 08/27/2024 11:27:26 08/25/19 25 08/25/2024 UTI ID PANEL COMPL ETE, PCR serratia marcescens Not Detect ed not detect ed normal Not Available [facility] [address], [place], [address], 08/27/2024 11:27:26 08/25/19 25 08/25/2024 UTI ID PANEL COMPL ETE, PCR staphylococc us aureus - wound & urine Not Detect ed not detect ed normal Not Available [facility] [address], [place], [address], 08/27/2024 11:27:26 08/25/19 25 08/25/2024 UTI ID PANEL COMPL ETE, PCR staphylococc us saprophyticu s Not Detect ed not detect ed normal Not Available [facility] [address], [place], [address], 08/27/2024 11:27:26 08/25/19 25 08/25/2024 UTI ID PANEL COMPL ETE, PCR streptococcu s agalactiae Not Detect ed not detect ed normal Not Available [facility] [address], [place], [address], 08/27/2024 11:27:26 08/25/19 25 08/25/2024 UTI ID PANEL COMPL ETE, PCR ureaplasma urealyticum Not Detect ed not detect ed normal Not Available [facility] [address], [place], [address], 08/27/2024 11:27:26 08/25/19 25 08/26/2024 UTI ID PANEL COMPL ETE, PCR growth 24 Growth abnormal @24 Hours Gram Negat paul Growt h, Not Available [facility] [address], [place], [address], 08/27/2024 11:27:26 08/25/19 25 08/24/2024 urina lysis , dipst ick Leukocytes Small Not Available [facility] [address] [place], [address], 08/20/2024 14:52:57 08/25/19 25 08/24/2024 urina lysis , dipst ick Nitrite negati ve Not Available [facility] [address] [place], [address], 08/20/2024 14:52:57 08/25/19 25 08/24/2024 urina lysis , dipst ick Urobilinogen .2 Not Available [facility] [address] [place], [address], 08/20/2024 14:52:57 08/25/19 25 08/24/2024 urina lysis , dipst ick Protein 100 Not Available [facility] [address] [place], [address], 08/20/2024 14:52:57 08/25/19 25 08/24/2024 urina lysis , dipst ick pH 6.0 Not Available [facility] [address] [place], [address], 08/20/2024 14:52:57 08/25/19 25 08/24/2024 urina lysis , dipst ick Blood Modera te Not Available [facility] [address] [place], [address], 08/20/2024 14:52:57 08/25/19 25 08/24/2024 urina lysis , dipst ick Specific [place] 1.020 Not Available [facility] [address] [place], [address], 08/20/2024 14:52:57 08/25/19 25 08/24/2024 urina lysis , dipst ick Ketone Negati ve Not Available [facility] [address] [place], [address], 08/20/2024 14:52:57 08/25/19 25 08/24/2024 urina lysis , dipst ick Bilirubin Negati ve Not Available [facility] [address] [place], [address], 08/20/2024 14:52:57 08/25/19 25 08/24/2024 urina lysis , dipst ick Glucose Negati ve Not Available [facility] [address] [place], [address], 08/20/2024 14:52:57 08/25/19 25 08/24/2024 urina lysis , dipst ick Appearance Cloudy Not Available [facility] [address] [place], [address], 08/20/2024 14:52:57 08/25/19 25 08/24/2024 urina lysis , dipst ick Color Yellow Not Available [facility] 1 [facility], [place], [address], 08/20/2024 14:52:57 09/03/19 25 09/02/2024 drug scree n, urine THC negati ve Not Available [address], [address], 09/02/2024 14:36:30 09/03/19 25 09/02/2024 drug scree n, urine TCA negati ve Not Available [address], [address], 09/02/2024 14:36:30 09/03/19 25 09/02/2024 drug scree n, urine BAR negati ve Not Available [address], [address], 09/02/2024 14:36:30 09/03/19 25 09/02/2024 drug scree n, urine BZO negati ve Not Available [address], [address], 09/02/2024 14:36:30 09/03/19 25 09/02/2024 drug scree n, urine MTD negati ve Not Available [address], [address], 09/02/2024 14:36:30 09/03/19 25 09/02/2024 drug scree n, urine AMP negati ve Not Available [address], [address], 09/02/2024 14:36:30 09/03/19 25 09/02/2024 drug scree n, urine MOP negati ve Not Available [address], [address], 09/02/2024 14:36:30 09/03/19 25 09/02/2024 drug scree n, urine OXY negati ve Not Available [address], [address], 09/02/2024 14:36:30 09/03/19 25 09/02/2024 drug scree n, urine MDMA negati ve Not Available [address], [address], 09/02/2024 14:36:30 09/03/19 25 09/02/2024 drug scree n, urine BULMARO negati ve Not Available [address], [address], 09/02/2024 14:36:30 09/03/19 25 09/02/2024 drug scree n, urine PCP negati ve Not Available [address], [address], 09/02/2024 14:36:30 09/03/19 25 09/02/2024 drug scree n, urine MET negati ve Not Available [address], [address], 09/02/2024 14:36:30 09/11/19 25 09/11/2024 UTI ID PANEL COMPL ETE, PCR garry albicans Not Detect ed not detect ed normal Not Available [facility] [address], [place], [address], 09/11/2024 15:16:33 09/11/19 25 09/11/2024 UTI ID PANEL COMPL ETE, PCR garry glabrata Not Detect ed not detect ed normal Not Available [facility] [address], [place], [address], 09/11/2024 15:16:33 09/11/19 25 09/11/2024 UTI ID PANEL COMPL ETE, PCR garry krusei Not Detect ed not detect ed normal Not Available [facility] [address], [place], [address], 09/11/2024 15:16:33 09/11/19 25 09/11/2024 UTI ID PANEL COMPL ETE, PCR garry lusitaniae Not Detect ed not detect ed normal Not Available [facility] [address], [place], [address], 09/11/2024 15:16:33 09/11/19 25 09/11/2024 UTI ID PANEL COMPL ETE, PCR garry parapsilosis Not Detect ed not detect ed normal Not Available [facility] [address], [place], [address], 09/11/2024 15:16:33 09/11/19 25 09/11/2024 UTI ID PANEL COMPL ETE, PCR garry tropicalis Not Detect ed not detect ed normal Not Available [facility] [address], [place], [address], 09/11/2024 15:16:33 09/11/19 25 09/11/2024 UTI ID PANEL COMPL ETE, PCR enterobacter cloacae Not Detect ed not detect ed normal Not Available [facility] [address], [place], [address], 09/11/2024 15:16:33 09/11/19 25 09/11/2024 UTI ID PANEL COMPL ETE, PCR enterococcus faecalis Not Detect ed not detect ed normal Not Available [facility] [address], [place], [address], 09/11/2024 15:16:33 09/11/19 25 09/11/2024 UTI ID PANEL COMPL ETE, PCR escherichia coli Not Detect ed not detect ed normal Not Available [facility] [address], [place], [address], 09/11/2024 15:16:33 09/11/19 25 09/11/2024 UTI ID PANEL COMPL ETE, PCR klebsiella oxytoca Not Detect ed not detect ed normal Not Available [facility] [address], [place], [address], 09/11/2024 15:16:33 09/11/19 25 09/11/2024 UTI ID PANEL COMPL ETE, PCR klebsiella pneumoniae Not Detect ed not detect ed normal Not Available [facility] [address], [place], [address], 09/11/2024 15:16:33 09/11/19 25 09/11/2024 UTI ID PANEL COMPL ETE, PCR morganella morganii Not Detect ed not detect ed normal Not Available [facility] [address], [place], [address], 09/11/2024 15:16:33 09/11/19 25 09/11/2024 UTI ID PANEL COMPL ETE, PCR mycoplasma hominis Not Detect ed not detect ed normal Not Available [facility] [address], [place], [address], 09/11/2024 15:16:33 09/11/19 25 09/11/2024 UTI ID PANEL COMPL ETE, PCR proteus mirabilis Not Detect ed not detect ed normal Not Available [facility] [address], [place], [address], 09/11/2024 15:16:33 09/11/19 25 09/11/2024 UTI ID PANEL COMPL ETE, PCR providencia stuartii Not Detect ed not detect ed normal Not Available [facility] [address], [place], [address], 09/11/2024 15:16:33 09/11/19 25 09/11/2024 UTI ID PANEL COMPL ETE, PCR pseudomonas aeruginosa Not Detect ed not detect ed normal Not Available [facility] [address], [place], [address], 09/11/2024 15:16:33 09/11/19 25 09/11/2024 UTI ID PANEL COMPL ETE, PCR serratia marcescens Not Detect ed not detect ed normal Not Available [facility] [address], [place], [address], 09/11/2024 15:16:33 09/11/19 25 09/11/2024 UTI ID PANEL COMPL ETE, PCR staphylococc us aureus - wound & urine Not Detect ed not detect ed normal Not Available [facility] [address], [place], [address], 09/11/2024 15:16:33 09/11/19 25 09/11/2024 UTI ID PANEL COMPL ETE, PCR staphylococc us saprophyticu s Not Detect ed not detect ed normal Not Available [facility] [address], [place], [address], 09/11/2024 15:16:33 09/11/19 25 09/11/2024 UTI ID PANEL COMPL ETE, PCR streptococcu s agalactiae Not Detect ed not detect ed normal Not Available [facility] [address], [place], [address], 09/11/2024 15:16:33 09/11/19 25 09/11/2024 UTI ID PANEL COMPL ETE, PCR ureaplasma urealyticum Not Detect ed not detect ed normal Not Available [facility] [address], [place], [address], 09/11/2024 15:16:33 09/28/19 25 09/28/2024 NUSWA B VAGIN ITIS PLUS (VG+) atopobium vaginae LOW - 0 score Not Available [facility] [facility]) [address] [facility], [place], [address], 09/30/2024 01:06:56 09/28/19 25 09/28/2024 NUSWA B VAGIN ITIS PLUS (VG+) bvab 2 LOW - 0 score Not Available [facility] ([facility]) [address] [place], [address], 09/30/2024 01:06:56 09/28/19 25 09/28/2024 NUSWA B [...] prese nce of BV. Not Available [facility] ([facility]) [address] [facility], [place], [address], 09/30/2024 01:06:56 09/28/19 25 09/28/2024 NUA B VAGIN ITIS PLUS (VG+) garry albicans, ERNESTINA NEGATI VE negati ve Not Available [facility] ([facility]) [address] [place], [address], 09/30/2024 01:06:56 09/28/19 25 09/28/2024 NUSWA B VAGIN ITIS PLUS (VG+) garry glabrata, ERNESTINA NEGATI VE negati ve Not Available [facility] ([facility]) [address] [place], [address], 09/30/2024 01:06:56 09/28/19 25 09/29/2024 NUA B VAGIN ITIS PLUS (VG+) trich vag by ERNESTINA NEGATI VE negati ve Not Available [facility] ([facility]) [address] [place], [address], 09/30/2024 01:06:56 09/28/19 25 09/29/2024 NUSWA B VAGIN ITIS PLUS (VG+) chlamydia trachomatis, ERNESTINA NEGATI VE negati ve Not Available [facility] ([facility]) [address] [facility], [place], [address], 09/30/2024 01:06:56 09/28/19 25 09/29/2024 NUSWA B VAGIN ITIS PLUS (VG+) neisseria gonorrhoeae, ERNESTINA NEGATI VE negati ve Not Available [facility] ([facility]) [address] [facility], [place], [address], 09/30/2024 01:06:56 09/28/1909/30/2024 URINE CULTU RE, ROUTI NE urine culture, routine FINAL REPORT abnormal Not Available [facility] ([facility]) [address] [facility], [place], [address], 09/30/2024 01:06:56 09/28/1909/30/2024 URINE CULTU RE, ROUTI NE result 1 [...] by Enter ococc us. Not Available [facility] ([facility]) [address] [facility], [place], [address], 09/30/2024 01:06:56 09/28/19 25 09/30/2024 URINE CULTU [...] R Vanco mycin S Not Available [facility] ([facility]) [address] [facility], [place], [address], 09/30/2024 01:06:56 09/28/19 25 09/27/2024 urina lysis , dipst ick Leukocytes Small Not Available [address], [address], 09/27/2024 11:53:59 09/28/19 25 09/27/2024 urina lysis , dipst ick Nitrite negati ve Not Available [address], [address], 09/27/2024 11:53:59 09/28/19 25 09/27/2024 urina lysis , dipst ick Urobilinogen .2 Not Available [facility] [address], [address], 09/27/2024 11:53:59 09/28/19 25 09/27/2024 urina lysis , dipst ick Protein 300 Not Available [address] [place], [address], 09/27/2024 11:53:59 09/28/19 25 09/27/2024 urina lysis , dipst ick pH 5.5 Not Available [address], [address], 09/27/2024 11:53:59 09/28/19 25 09/27/2024 urina lysis , dipst ick Blood Non-He molyze d: Trace Not Available [address], [address], 09/27/2024 11:53:59 09/28/19 25 09/27/2024 urina lysis , dipst ick Specific [place] 1.030 Not Available [address], [address], 09/27/2024 11:53:59 09/28/19 25 09/27/2024 urina lysis , dipst ick Ketone Negati ve Not Available [address], [address], 09/27/2024 11:53:59 09/28/19 25 09/27/2024 urina lysis , dipst ick Bilirubin Negati ve Not Available [address], [address], 09/27/2024 11:53:59 09/28/19 25 09/27/2024 urina lysis , dipst ick Glucose Negati ve Not Available [address], [address], 09/27/2024 11:53:59 09/28/19 25 09/27/2024 urina lysis , dipst ick Appearance Clear Not Available [address] [place], [address], 09/27/2024 11:53:59 09/28/1909/27/2024 urina lysis , dipst ick Color Yellow Not Available [address], [address], 09/27/2024 11:53:59 10/09/19 25 10/08/2024 MICRO SENSI TIVIT Y abnormal status abnormal Not Available [facility] [address], [place], [address], 10/11/2024 07:49:43 10/09/1910/08/2024 MICRO SENSI TIVIT Y abnormal status high Not Available [facility] [address], [place], [address], 10/11/2024 07:49:43 10/09/19 25 10/08/2024 MICRO SENSI TIVIT Y abnormal status resistant Not Available [facility] [address], [place], [address], 10/11/2024 07:49:43 10/09/1910/08/2024 MICRO SENSI TIVIT Y abnormal status susceptib le Not Available [facility] [address], [place], [address], 10/11/2024 07:49:43 10/09/1910/08/2024 MICRO SENSI TIVIT Y ampicillin 16 R resistant Not Available [facility] [address], [place], [address], 10/11/2024 07:49:42 10/09/19 25 10/08/2024 MICRO SENSI TIVIT Y amikacin <=8 S susceptib le Not Available [facility] [address], [place], [address], 10/11/2024 07:49:42 10/09/19 25 10/08/2024 MICRO SENSI TIVIT Y aztreonam <=2 S susceptib le Not Available [facility] [address], [place], [address], 10/11/2024 07:49:42 10/09/19 25 10/08/2024 MICRO SENSI TIVIT Y ceftazidime <=2 S susceptib le Not Available [facility] [address], [place], [address], 10/11/2024 07:49:42 10/09/19 25 10/08/2024 MICRO SENSI TIVIT Y ciprofloxaci n <=0.25 S susceptib le Not Available [facility] [address], [place], [address], 10/11/2024 07:49:42 10/09/19 25 10/08/2024 MICRO SENSI TIVIT Y ceftriaxone <=1 S susceptib le Not Available [facility] [address], [place], [address], 10/11/2024 07:49:42 10/09/19 25 10/08/2024 MICRO SENSI TIVIT Y cefepime <=1 S susceptib le Not Available [facility] [address], [place], [address], 10/11/2024 07:49:42 10/09/19 25 10/08/2024 MICRO SENSI TIVIT Y nitrofuranto in 32 S susceptib le Not Available [facility] [address], [place], [address], 10/11/2024 07:49:42 10/09/19 25 10/08/2024 MICRO SENSI TIVIT Y gentamicin <=2 S susceptib le Not Available [facility] [address], [place], [address], 10/11/2024 07:49:42 10/09/19 25 10/08/2024 MICRO SENSI TIVIT Y levofloxacin <=0.5 S susceptib le Not Available [facility] [address], [place], [address], 10/11/2024 07:49:42 10/09/19 25 10/08/2024 MICRO SENSI TIVIT Y meropenem <=0.5 S susceptib le Not Available [facility] [address], [place], [address], 10/11/2024 07:49:42 10/09/19 25 10/08/2024 MICRO SENSI TIVIT Y tobramycin <=2 S susceptib le Not Available [facility] [address], [place], [address], 10/11/2024 07:49:42 10/09/19 25 10/08/2024 MICRO SENSI TIVIT Y ampicillin/s ulbactam 8/4 S susceptib le Not Available [facility] [address], [place], [address], 10/11/2024 07:49:42 10/09/19 25 10/08/2024 MICRO SENSI TIVIT Y trimethoprim /sulfamethox azole <=0.5/ 9.5 S susceptib le Not Available [facility] [address], [place], [address], 10/11/2024 07:49:42 10/09/19 25 10/08/2024 MICRO SENSI TIVIT Y tetracycline <=2 S susceptib le Not Available [facility] [address], [place], [address], 10/11/2024 07:49:42 10/09/19 25 10/08/2024 MICRO SENSI TIVIT Y piperacillin /tazobactam 4/4 S susceptib le Not Available [facility] [address], [place], [address], 10/11/2024 07:49:42 10/09/19 25 10/08/2024 MICRO SENSI TIVIT Y ertapenem <=0.25 S susceptib le Not Available [facility] [address], [place], [address], 10/11/2024 07:49:42 10/09/19 25 10/08/2024 MICRO SENSI TIVIT Y organism Kleb. pneumo . ssp pneu. Not Available [facility] [address], [place], [address], 10/11/2024 07:49:42 10/09/19 25 10/08/2024 RESIS TANCE MARKE RS ampc resistance marker Not Detect ed normal Not Available [facility] [address], [place], [address], 10/11/2024 07:49:42 10/09/19 25 10/08/2024 RESIS TANCE MARKE RS carbapenem resistance markers Not Detect ed normal Not Available [facility] [address], [place], [address], 10/11/2024 07:49:42 10/09/19 25 10/08/2024 RESIS TANCE MARKE RS esbl resistance markers Detect ed abnormal Not Available [facility] [address], [place], [address], 10/11/2024 07:49:42 10/09/19 25 10/08/2024 RESIS TANCE MARKE RS quinolone resistance markers Not Detect ed normal Not Available [facility] [address], [place], [address], 10/11/2024 07:49:42 10/09/19 25 10/09/2024 UTI ID PANEL COMPL ETE, PCR garry albicans Not Detect ed not detect ed normal Not Available [facility] [address], [place], [address], 10/11/2024 07:49:41 10/09/19 25 10/09/2024 UTI ID PANEL COMPL ETE, PCR garry glabrata Not Detect ed not detect ed normal Not Available [facility] [address], [place], [address], 10/11/2024 07:49:41 10/09/19 25 10/09/2024 UTI ID PANEL COMPL ETE, PCR garry krusei Not Detect ed not detect ed normal Not Available [facility] [address], [place], [address], 10/11/2024 07:49:41 10/09/19 25 10/09/2024 UTI ID PANEL COMPL ETE, PCR garry lusitaniae Not Detect ed not detect ed normal Not Available [facility] [address], [place], [address], 10/11/2024 07:49:41 10/09/19 25 10/09/2024 UTI ID PANEL COMPL ETE, PCR garry parapsilosis Not Detect ed not detect ed normal Not Available [facility] [address], [place], [address], 10/11/2024 07:49:41 10/09/19 25 10/09/2024 UTI ID PANEL COMPL ETE, PCR garry tropicalis Not Detect ed not detect ed normal Not Available [facility] [address], [place], [address], 10/11/2024 07:49:41 10/09/19 25 10/09/2024 UTI ID PANEL COMPL ETE, PCR enterobacter cloacae Not Detect ed not detect ed normal Not Available [facility] [address], [place], [address], 10/11/2024 07:49:41 10/09/19 25 10/09/2024 UTI ID PANEL COMPL ETE, PCR enterococcus faecalis Not Detect ed not detect ed normal Not Available [facility] [address], [place], [address], 10/11/2024 07:49:41 10/09/19 25 10/09/2024 UTI ID PANEL COMPL ETE, PCR escherichia coli Not Detect ed not detect ed normal Not Available [facility] [address], [place], [address], 10/11/2024 07:49:41 10/09/19 25 10/09/2024 UTI ID PANEL COMPL ETE, PCR klebsiella oxytoca Not Detect ed not detect ed normal Not Available [facility] [address], [place], [address], 10/11/2024 07:49:41 10/09/19 25 10/09/2024 UTI ID PANEL COMPL ETE, PCR klebsiella pneumoniae High not detect ed high Not Available [facility] [address], [place], [address], 10/11/2024 07:49:41 10/09/19 25 10/09/2024 UTI ID PANEL COMPL ETE, PCR morganella morganii Not Detect ed not detect ed normal Not Available [facility] [address], [place], [address], 10/11/2024 07:49:41 10/09/19 25 10/09/2024 UTI ID PANEL COMPL ETE, PCR mycoplasma hominis Not Detect ed not detect ed normal Not Available [facility] [address], [place], [address], 10/11/2024 07:49:41 10/09/19 25 10/09/2024 UTI ID PANEL COMPL ETE, PCR proteus mirabilis Not Detect ed not detect ed normal Not Available [facility] [address], [place], [address], 10/11/2024 07:49:41 10/09/19 25 10/09/2024 UTI ID PANEL COMPL ETE, PCR providencia stuartii Not Detect ed not detect ed normal Not Available [facility] [address], [place], [address], 10/11/2024 07:49:41 10/09/19 25 10/09/2024 UTI ID PANEL COMPL ETE, PCR pseudomonas aeruginosa Not Detect ed not detect ed normal Not Available [facility] [address], [place], [address], 10/11/2024 07:49:41 10/09/19 25 10/09/2024 UTI ID PANEL COMPL ETE, PCR serratia marcescens Not Detect ed not detect ed normal Not Available [facility] [address], [place], [address], 10/11/2024 07:49:41 10/09/19 25 10/09/2024 UTI ID PANEL COMPL ETE, PCR staphylococc us aureus - wound & urine Not Detect ed not detect ed normal Not Available [facility] [address], [place], [address], 10/11/2024 07:49:41 10/09/19 25 10/09/2024 UTI ID PANEL COMPL ETE, PCR staphylococc us saprophyticu s Not Detect ed not detect ed normal Not Available [facility] [address], [place], [address], 10/11/2024 07:49:41 10/09/19 25 10/09/2024 UTI ID PANEL COMPL ETE, PCR streptococcu s agalactiae Not Detect ed not detect ed normal Not Available [facility] [address], [place], [address], 10/11/2024 07:49:41 10/09/19 25 10/09/2024 UTI ID PANEL COMPL ETE, PCR ureaplasma urealyticum Not Detect ed not detect ed normal Not Available [facility] [address], [place], [address], 10/11/2024 07:49:41 10/09/19 25 10/10/2024 UTI ID PANEL COMPL ETE, PCR growth 24 Growth abnormal @24 Hours Gram Negat paul Growt h, Not Available [facility] [address], [place], [address], 10/11/2024 07:49:41 10/09/19 25 10/08/2024 urina lysis , dipst ick Leukocytes Trace Not Available [facility] [address] [place], [address], 10/04/2024 09:39:08 10/09/19 25 10/08/2024 urina lysis , dipst ick Nitrite negati ve Not Available [facility] [address] [place], [address], 10/04/2024 09:39:08 10/09/19 25 10/08/2024 urina lysis , dipst ick Urobilinogen .2 Not Available [facility] [address] [place], [address], 10/04/2024 09:39:08 10/09/19 25 10/08/2024 urina lysis , dipst ick Protein 100 Not Available [facility] [address] [place], [address], 10/04/2024 09:39:08 10/09/19 25 10/08/2024 urina lysis , dipst ick pH 5.5 Not Available [facility] [address] [place], [address], 10/04/2024 09:39:08 10/09/19 25 10/08/2024 urina lysis , dipst ick Blood Negati ve Not Available [facility] [address] [place], [address], 10/04/2024 09:39:08 10/09/19 25 10/08/2024 urina lysis , dipst ick Specific [place] 1.030 Not Available [facility] [address] [place], [address], 10/04/2024 09:39:08 10/09/19 25 10/08/2024 urina lysis , dipst ick Ketone Negati ve Not Available [facility] [address] [place], [address], 10/04/2024 09:39:08 10/09/19 25 10/08/2024 urina lysis , dipst ick Bilirubin Negati ve Not Available [facility] [address] [place], [address], 10/04/2024 09:39:08 10/09/19 25 10/08/2024 urina lysis , dipst ick Glucose Negati ve Not Available [facility] [address] [place], [address], 10/04/2024 09:39:08 10/09/19 25 10/08/2024 urina lysis , dipst ick Appearance Clear Not Available [facility] [address] [place], [address], 10/04/2024 09:39:08 10/09/19 25 10/08/2024 urina lysis , dipst ick Color Yellow Not Available [facility] [address] [place], [address], 10/04/2024 09:39:08 10/23/1910/22/2024 MICRO SENSI TIVIT Y abnormal status abnormal Not Available [facility] [address], [place], [address], 10/25/2024 08:35:54 10/23/1910/22/2024 MICRO SENSI TIVIT Y abnormal status high Not Available [facility] [address], [place], [address], 10/25/2024 08:35:54 10/23/19 25 10/22/2024 MICRO SENSI TIVIT Y abnormal status intermedi ate Not Available [facility] [address], [place], [address], 10/25/2024 08:35:54 10/23/19 25 10/22/2024 MICRO SENSI TIVIT Y abnormal status resistant Not Available [facility] [address], [place], [address], 10/25/2024 08:35:54 10/23/19 25 10/22/2024 MICRO SENSI TIVIT Y abnormal status susceptib le Not Available [facility] [address], [place], [address], 10/25/2024 08:35:54 10/23/19 25 10/22/2024 MICRO SENSI TIVIT Y ampicillin >16 R resistant Not Available [facility] [address], [place], [address], 10/25/2024 08:35:53 10/23/19 25 10/22/2024 MICRO SENSI TIVIT Y amikacin <=8 S susceptib le Not Available [facility] [address], [place], [address], 10/25/2024 08:35:53 10/23/19 25 10/22/2024 MICRO SENSI TIVIT Y aztreonam 16 R resistant Not Available [facility] [address], [place], [address], 10/25/2024 08:35:53 10/23/1910/22/2024 MICRO SENSI TIVIT Y ceftazidime 8 intermedi ate Not Available [facility] [address], [place], [address], 10/25/2024 08:35:53 10/23/19 25 10/22/2024 MICRO SENSI TIVIT Y ciprofloxaci n <=0.25 S susceptib le Not Available [facility] [address], [place], [address], 10/25/2024 08:35:53 10/23/19 25 10/22/2024 MICRO SENSI TIVIT Y ceftriaxone 32 R resistant Not Available [facility] [address], [place], [address], 10/25/2024 08:35:53 10/23/19 25 10/22/2024 MICRO SENSI TIVIT Y cefepime 4 intermedi ate Not Available [facility] [address], [place], [address], 10/25/2024 08:35:53 10/23/19 25 10/22/2024 MICRO SENSI TIVIT Y nitrofuranto in <=16 S susceptib le Not Available [facility] [address], [place], [address], 10/25/2024 08:35:53 10/23/19 25 10/22/2024 MICRO SENSI TIVIT Y gentamicin <=2 S susceptib le Not Available [facility] [address], [place], [address], 10/25/2024 08:35:53 10/23/1910/22/2024 MICRO SENSI TIVIT Y levofloxacin <=0.5 S susceptib le Not Available [facility] [address], [place], [address], 10/25/2024 08:35:53 10/23/19 25 10/22/2024 MICRO SENSI TIVIT Y meropenem <=0.5 S susceptib le Not Available [facility] [address], [place], [address], 10/25/2024 08:35:53 10/23/1910/22/2024 MICRO SENSI TIVIT Y tobramycin <=2 S susceptib le Not Available [facility] [address], [place], [address], 10/25/2024 08:35:53 10/23/19 25 10/22/2024 MICRO SENSI TIVIT Y ampicillin/s ulbactam 4/2 S susceptib le Not Available [facility] [address], [place], [address], 10/25/2024 08:35:53 10/23/19 25 10/22/2024 MICRO SENSI TIVIT Y trimethoprim /sulfamethox azole <=0.5/ 9.5 S susceptib le Not Available [facility] [address], [place], [address], 10/25/2024 08:35:53 10/23/19 25 10/22/2024 MICRO SENSI TIVIT Y tetracycline <=2 S susceptib le Not Available [facility] [address], [place], [address], 10/25/2024 08:35:53 10/23/19 25 10/22/2024 MICRO SENSI TIVIT Y piperacillin /tazobactam 4/4 S susceptib le Not Available [facility] [address], [place], [address], 10/25/2024 08:35:53 10/23/19 25 10/22/2024 MICRO SENSI TIVIT Y ertapenem <=0.25 S susceptib le Not Available [facility] [address], [place], [address], 10/25/2024 08:35:53 10/23/19 25 10/22/2024 MICRO SENSI TIVIT Y organism Kleb. pneumo . ssp pneu. Not Available [facility] [address], [place], [address], 10/25/2024 08:35:53 10/23/19 25 10/22/2024 CODY HERCULES ampc resistance marker Not Detect ed normal Not Available [facility] [address], [place], [address], 10/25/2024 08:35:53 10/23/19 25 10/22/2024 CODY MOTA MARKE RS carbapenem resistance markers Not Detect ed normal Not Available [facility] [address], [place], [address], 10/25/2024 08:35:53 10/23/19 25 10/22/2024 RESIS SVETLANA MCWILLIAMS RS esbl resistance markers Detect ed abnormal Not Available [facility] [address], [place], [address], 10/25/2024 08:35:53 10/23/19 25 10/22/2024 RESIS SVETLANA MCWILLIAMS RS quinolone resistance markers Not Detect ed normal Not Available [facility] [address], [place], [address], 10/25/2024 08:35:53 10/23/19 25 10/23/2024 UTI ID PANEL COMPL ETE, PCR garry albicans Not Detect ed not detect ed normal Not Available [facility] [address], [place], [address], 10/25/2024 08:35:52 10/23/19 25 10/23/2024 UTI ID PANEL COMPL ETE, PCR garry glabrata Not Detect ed not detect ed normal Not Available [facility] [address], [place], [address], 10/25/2024 08:35:52 10/23/19 25 10/23/2024 UTI ID PANEL COMPL ETE, PCR garry krusei Not Detect ed not detect ed normal Not Available [facility] [address], [place], [address], 10/25/2024 08:35:52 10/23/19 25 10/23/2024 UTI ID PANEL COMPL ETE, PCR garry lusitaniae Not Detect ed not detect ed normal Not Available [facility] [address], [place], [address], 10/25/2024 08:35:52 10/23/19 25 10/23/2024 UTI ID PANEL COMPL ETE, PCR garry parapsilosis Not Detect ed not detect ed normal Not Available [facility] [address], [place], [address], 10/25/2024 08:35:52 10/23/19 25 10/23/2024 UTI ID PANEL COMPL ETE, PCR garry tropicalis Not Detect ed not detect ed normal Not Available [facility] [address], [place], [address], 10/25/2024 08:35:52 10/23/19 25 10/23/2024 UTI ID PANEL COMPL ETE, PCR enterobacter cloacae Not Detect ed not detect ed normal Not Available [facility] [address], [place], [address], 10/25/2024 08:35:52 10/23/19 25 10/23/2024 UTI ID PANEL COMPL ETE, PCR enterococcus faecalis Not Detect ed not detect ed normal Not Available [facility] [address], [place], [address], 10/25/2024 08:35:52 10/23/19 25 10/23/2024 UTI ID PANEL COMPL ETE, PCR escherichia coli Not Detect ed not detect ed normal Not Available [facility] [address], [place], [address], 10/25/2024 08:35:52 10/23/19 25 10/23/2024 UTI ID PANEL COMPL ETE, PCR klebsiella oxytoca Not Detect ed not detect ed normal Not Available [facility] [address], [place], [address], 10/25/2024 08:35:52 10/23/19 25 10/23/2024 UTI ID PANEL COMPL ETE, PCR klebsiella pneumoniae High not detect ed high Not Available [facility] [address], [place], [address], 10/25/2024 08:35:52 10/23/19 25 10/23/2024 UTI ID PANEL COMPL ETE, PCR morganella morganii Not Detect ed not detect ed normal Not Available [facility] [address], [place], [address], 10/25/2024 08:35:52 10/23/19 25 10/23/2024 UTI ID PANEL COMPL ETE, PCR mycoplasma hominis Not Detect ed not detect ed normal Not Available [facility] [address], [place], [address], 10/25/2024 08:35:52 10/23/19 25 10/23/2024 UTI ID PANEL COMPL ETE, PCR proteus mirabilis Not Detect ed not detect ed normal Not Available [facility] [address], [place], [address], 10/25/2024 08:35:52 10/23/19 25 10/23/2024 UTI ID PANEL COMPL ETE, PCR providencia stuartii Not Detect ed not detect ed normal Not Available [facility] [address], [place], [address], 10/25/2024 08:35:52 10/23/19 25 10/23/2024 UTI ID PANEL COMPL ETE, PCR pseudomonas aeruginosa Not Detect ed not detect ed normal Not Available [facility] [address], [place], [address], 10/25/2024 08:35:52 10/23/19 25 10/23/2024 UTI ID PANEL COMPL ETE, PCR serratia marcescens Not Detect ed not detect ed normal Not Available [facility] [address], [place], [address], 10/25/2024 08:35:52 10/23/19 25 10/23/2024 UTI ID PANEL COMPL ETE, PCR staphylococc us aureus - wound & urine Not Detect ed not detect ed normal Not Available [facility] [address], [place], [address], 10/25/2024 08:35:52 10/23/19 25 10/23/2024 UTI ID PANEL COMPL ETE, PCR staphylococc us saprophyticu s Not Detect ed not detect ed normal Not Available [facility] [address], [place], [address], 10/25/2024 08:35:52 10/23/19 25 10/23/2024 UTI ID PANEL COMPL ETE, PCR streptococcu s agalactiae Not Detect ed not detect ed normal Not Available [facility] [address], [place], [address], 10/25/2024 08:35:52 10/23/19 25 10/23/2024 UTI ID PANEL COMPL ETE, PCR ureaplasma urealyticum Not Detect ed not detect ed normal Not Available [facility] [address], [place], [address], 10/25/2024 08:35:52 10/23/19 25 10/24/2024 UTI ID PANEL COMPL ETE, PCR growth 24 Growth abnormal @24 Hours Gram Negat paul Growt h, Not Available [facility] [facility] [address], [place], [address], 10/25/2024 08:35:52 11/20/19 25 11/19/2024 gluco se, finge rstic k, blood Blood Glucose: mg/dl 118 Not Available [address], [address], 11/19/2024 15:35:59 11/20/19 25 11/19/2024 gluco se, finge rstic k, blood Reference Range (60-100) abnorm al Not Available [address], [address], 11/19/2024 15:35:59 11/20/19 25 11/19/2024 gluco se, finge rstic k, blood Blood Glucose: mg/dl 150 Not Available [address], [address], 11/19/2024 15:35:37 11/20/19 25 11/19/2024 gluco se, finge rstic k, blood Reference Range (60-100) abnorm al Not Available [address], [address], 11/19/2024 15:35:37 11/30/19 25 11/29/2024 urina lysis , dipst ick Color Dark Yellow Not Available [address], [address], 11/29/2024 13:29:00 11/30/19 25 11/29/2024 urina lysis , dipst ick Appearance Clear Not Available [address], [address], 11/29/2024 13:29:00 11/30/19 25 11/29/2024 urina lysis , dipst ick Glucose Negati ve Not Available [address], [address], 11/29/2024 13:29:00 11/30/19 25 11/29/2024 urina lysis , dipst ick Bilirubin Negati ve Not Available [address], [address], 11/29/2024 13:29:00 11/30/19 25 11/29/2024 urina lysis , dipst ick Ketone Negati ve Not Available [address], [address], 11/29/2024 13:29:00 11/30/19 25 11/29/2024 urina lysis , dipst ick Specific [place] 1.030 Not Available [address], [address], 11/29/2024 13:29:00 11/30/19 25 11/29/2024 urina lysis , dipst ick Blood Negati ve Not Available [address], [address], 11/29/2024 13:29:00 11/30/19 25 11/29/2024 urina lysis , dipst ick pH 5.5 Not Available [address], [address], 11/29/2024 13:29:00 11/30/19 25 11/29/2024 urina lysis , dipst ick Protein 300 Not Available [address], [address], 11/29/2024 13:29:00 11/30/19 25 11/29/2024 urina lysis , dipst ick Urobilinogen .2 Not Available Saad [address], [address], 11/29/2024 13:29:00 11/30/19 25 11/29/2024 urina lysis , dipst ick Nitrite positi ve Not Available [address], [address], 11/29/2024 13:29:00 11/30/19 25 11/29/2024 urina lysis , dipst ick Leukocytes Trace Not Available [address], [address], 11/29/2024 13:29:00 11/20/19 25 11/19/2024 elect mary anne negrete am No observ ation record ed. keya [address], [address], 11/19/2024 16:58:35 11/20/19 25 11/19/2024 elect rocar diogr am No observ ation record ed. [facility] [address], [place], [address], 11/22/2024 09:08:29 11/23/19 25 11/19/2024 elect rocar diogr am No observ ation record ed. [email or web address] [address], [place], [address], 11/23/2024 16:34:11 11/23/19 25 11/22/2024 XR, foot, 3 or more view No observ ation record ed. [facility] [address], [place], [address], 11/23/2024 18:15:43 11/30/19 25 11/19/2024 cardi ac monit or No observ ation record ed. [facility] [address], [place], [address], 11/30/2024 10:43:31 Result Notes None recorded. Problems Name Problem SNOMED Code Status Onset Date Resolution Date Notes Provider Name and Address Organization Details Recorded Time Type 2 diabetes mellitus 12647165 Active 2021 Dylan Lebron APRN [address], [place], [address], [place] - [facility] 2 10:07:29 Hypertensive disorder 00509731 Active 2021 Dylan Lebron DYNO TECHNICIAN [address], [place], [address], [place] - [facility] 2 10:07:09 Hypercholester olemia 79451897 Active 2021 Dylan Lebron, DYNO TECHNICIAN [address], [place], [address], [place] - [facility] 2 10:07:05 Gastroesophage al reflux disease 252711340 Active 2021 Dylan Lebron, DYNO TECHNICIAN [address], [place], [address], [place] [facility] 2 10:06:49 Hypothyroidism 89420368 Active 2021 Dylan Lebron, DYNO TECHNICIAN [address], [place], [address], [place] [facility] 2 10:07:12 Neuropathy 614589988 Active 2021 Dylan Lebron, DYNO TECHNICIAN [address], [place], [address], [place] [facility] 2 10:07:19 Arthritis 9073112 Active 2021 Dylan Lebron, DYNO TECHNICIAN [address], [place], [address], [place] [facility] 2 10:06:47 Coronary arterioscleros is 65706227 Active 2021 Dylan Lebron, DYNO TECHNICIAN [address], [place], [address], [place] [facility] 2 10:18:21 Coronary artery bypass grafts x 3 Active 2021 Dylan Lebron, DYNO TECHNICIAN [address], [place], [address], [place] [facility] 2 10:18:34 Problem Notes None recorded. Procedures Surgical History Date Name Laterality Status Provider Name and Address Organization Details Recorded Time 025 Medication Reconcilliation completed Fina Vasquez [place] - [facility] 11/29/2024 13:05:51 025 Advance Care Planning completed Fina Vasquez [place] - [facility] 11/19/2024 10:41:02 025 IV Infusion completed Fina Vasquez [place] - [facility] 11/19/2024 15:44:19 025 Functional Status Assessed completed Fina Vasquez [place] - [facility] 11/19/2024 10:41:02 024 Date of Last Colonoscopy completed Dia Youssef [place] - [facility] 2024 13:27:50 024 Medication Reconcilliation completed Fina Vasquez [place] [facility] 12/02/2023 10:36:18 023 In and Out Catheterization completed Margaritanando Banks, DYNO TECHNICIAN [address], [place], [address] [place] - [facility] 02/13/2023 14:34:26 023 Medication Reconcilliation completed Finaradha Vasquez [place] - [facility] 01/31/2023 10:55:15 023 [...] Name and Address Organization Details Recorded Time 943910 lisinopri l medicatio n rash Not available high 12/17/2021 75138 RxNorm Fina Vasquez null, [place] - [facility] 10:17:08 229181 Oxycontin medicatio n hallucina tions moderate high 12/17/2021 34445 6 RxNorm Fina Vas[place] - [facility] 2 10:18:04 683615 codeine medicatio n rash moderate high 12/17/2021 2670 RxNorm Fina Vasquez [place], [place] - [facility] 2 10:16:43 259778 acetamino phen / oxycodone medicatio n hallucina tions severe high 12/17/2021 49102 3 RxNorm Fina [place]quez [place], [place] - [facility] 2 10:17:43 948693 cephalexi n medicatio n eye swelling Not available low 11/11/2022 2231 RxNorm Fina [place], [place] - [facility] 3 12:54:33 709133 Macrobid medicatio n diarrhea moderate high 01/13/2023 34914 1 RxNorm vomit ing and diarr hea [...] Not Available Not Available Not Available [facility] [employer] [place] 3 mL 08/22 completed Not Available Not [...] 5 151.13 cm 18 /min 28.2 kg/m2 77401.1 2 g 98 [degF] 100 /min 93 [...] Updated DateTime 5 151.13 cm 28.4 kg/m2 20941.7 1 g 18 /min 92 % 92 % 90 /min 126 mm[Hg] 78 mm[Hg] Dia Stears [place] - [facility] 5 11:44:21 Date Recorded Body height Body mass index (BMI) Body weight Heart rate Oxygen saturation Oxygen saturation in Arterial blood by Pulse oximetry Systolic blood pressure Diastolic blood pressure Provider Name and Address Organization Details Last Updated DateTime 5 151.13 cm 28.2 kg/m2 74066.1 2 g 86 /min 90 % 90 [...] 5 151.13 cm 20 /min 28 kg/m2 79203.5 2 g 84 /min 94 % 94 % 64 /min 94 % 94 % 64 /min 92 % 92 % 97 % 97 % 3 L/min 100 % 100 % 3 L/min 74 /min 57 /min 130 mm[Hg] 82 mm[Hg] 70 mm[Hg] 50 mm[Hg] 82 mm[Hg] 52 mm[Hg] 110 mm[Hg] 60 mm[Hg] 100 mm[Hg] 60 mm[Hg] Fina Vasquez [facility] 5 15:39:55 Date Recorded Body height Body mass index (BMI) Body weight Body temperature Heart rate Oxygen saturation Oxygen saturation in Arterial blood by Pulse oximetry Respiratory rate Systolic blood pressure Diastolic blood pressure Provider Name and Address Organization Details Last Updated DateTime 5 151.13 cm 27.6 kg/m2 23712.3 4 g 98 [degF] 87 /min 95 % 95 % 18 /min 118 mm[Hg] 64 mm[Hg] Fina Vasquez [facility] [place] 13:17:29 Social History Question Answer Notes LastModified by Organizat ion Details LastModified Time Tobacco Smoking Status [facility]21 09:30:03 Do You Have An Advance [...] Or The Highest Degree You Have Received? [id number] Information not available 12/17/2021 Have There Been Any Changes To Your Family Or Social Situation? No Information no t available 07/14/2023 What Is The Fluoride Status Of Your Home? Unknown Information not available 07/14/2023 Have You Recently Or Are You Planning To Travel To An Area With Zika Virus? 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 No Information not available 07/14/2023 What Was [...] anxious, or unable to sleep at night)? [id number] Information not available 12/20/2021 Do you have [...] available 11/19 10:13:20 Medical History Condition Response Acid Reflux (GERD) Y Stroke Y Thyroid Problems Y Diabetes Y Heart Disease Y Hypertension Y Muscle, Joint, or Bone Problems Y Hypercholesterolemia Y Kidney or Bladder Problems Y Neuropathy Y Gynecological History Statement/Question Response Abnormal Pap [...] high-dose, quadrivalent, PF 02/21/2022 completed Dylan Lebron, DYNO TECHNICIAN [address], [place], [address], [place] [facility] 03/26/2022 17:30:58 Influenza, high-dose, [...] mcg/0.25mL dose 04/11/2021 completed Fina Vasquez null, [place] - [facility] 08/22/2022 14:19:25 Tdap 04/20/2013 completed Fina Vas[place] [facility] 08/22/2022 14:19:25 zoster live 04/20/2013 completed Fina Vas[place] [facility] 08/22/2022 14:19:25 Influenza, high-dose, trivalent, PF 05/16/2021 completed Fina Vasquez null[place] - [facility] 08/22/2022 14:19:25 Past Encounters Encounter ID Performer Location Encounter Start Date Encounter Closed Date Diagnosis/Indication Diagnosis SNOMED-CT Code Diagnosis ICD10 Code Diagnosis Note [id number] Dylan Lebron APRN [address] [address] 12/17/2021 08:46:07 12/17/2021 10:35:13 Diabetes mellitus 63889692 E11.9 Overall, pt doing well at this [...] questions or concerns arise. Urinary incontinence 165 734463 R32 pt wants to wait on referral wants to try meds first. if gfr wnl will start mybretriq Hypercholesterolemia 136 94258 E78.00 Hypertensive disorder 38 125572 I10 Hypothyroidism 80813422 E03.9 Neuropathy 883431093 G62 .9 on gabapentin Coronary arteriosclerosis 29294954 I25.10 follow up with cardiology as scheduled [id number] Dylan Lebron APRN [address] [place] [address] 12/20/2021 14:52:20 12/20/2021 17:13:38 Type 2 diabetes mellitus 65344034 E11.21 Insulin pump present 450 398529 Z96.41 increased Education about insulin pump 6611685599 71908 Z46.81 current insulin pump settings:b maru rate 1.9 units/hr midnight to 8 am2.5 units/hr 8am to 12 pmtotal 58.2 units a daymax of 80 units a day adjustment s :basal rate 1.9 units/hr midnight to 8 am2.85 units/hr 8am to 12 pmtotal of 65.55 units in 24 hoursincre ase bolus to each meal and snack Acute urin nasra tract infection 237497036 N39.0 med sent [id number] Dylan Lebron [address] [address] 01/07/2022 13:15:54 01/07/2022 14:11:25 Acute urinary tract infection 718958937 N39.0 med sent Dizzy spells 000323982 R 42 [id number] Dylan Lebron [address] [address] 01/15/2022 14:53:00 01/15/2022 15:42:34 Acute urinary tract infection 199314716 N39.0 med sent, discussed with pharm antibiotic s based on culture, will reculture and sent referral to urology [facility] 4905205598 65552 M25.676 [id number] Dylan Lebron [address] [address] 01/24/2022 10:35:55 01/24/2022 11:11:42 Low back pain 068092549 M54.41 decadron 4mg given im, watch glucose close may need to adjust insulin dose for a few days [id number] Dylan Lebron [address] [address] 01/28/2022 14:54:09 01/28/2022 16:38:47 Neuropathy 977359196 G62.9 on gabapentin Low back pain 174233380 M54.41 [id number] Dylan Lebron APRN [address] [address] 02/04/2022 10:17:23 02/04/2022 11:03:56 Low back pain 912082252 M54.41 Donald report obtained, reviewed, and made [...] 3 days or norco until mri resulted [id number] Dylan Lebron APRN [address] [address] 02/21/2022 09:51:52 02/21/2022 11:03:15 Low back pain 402722681 M54.41 Donald report obtained, reviewed, and made [...] as csa on file Influenza vaccine needed 0395070350 106 Z23 [id number] Dylan Lebron DYNO TECHNICIAN [address] [address] 08/22/2022 13:52:04 08/22/2022 15:02:08 Neuropathy 332461644 G62.9 Pt compliant with plan of careKasper reviewed and appropriat emedicatio n compliance discussedC ontrol substance agreement on fileuds next visit- pt has pain and difficulty getting on and off toilet Type 2 lexx betes mellitus 07560753 E11.21 labs next visit Hypertensive disorder 38 214897 I10 labs next visit Hypercholesterolemia 136 68954 E78.00 [id number] Dylan Lebron [address] [address] 11/08/2022 13:31:16 11/08/2022 14:44:29 Acute urinary tract infection 319287269 N39.0 increase fluids Candidiasis of vagina 72 657802 B37.31 [id number] Dylan Lebron [address] [address] 11/19/2022 14:48:02 11/19/2022 15:38:27 Acute confusion 743574479 R41.0 sent to ed for eval- report to Yanelis Arzola RN Abnormal g ait due to muscle weakness 597451599 M62.81 Unsteady when walking 22 347000 R26.89 Abnormal vision 1086721 H54.7 Disorder o f eye movements 02965066 H55.89 [id number] Dylan Lebron [address] [address] 11/25/2022 14:33:30 11/25/2022 15:58:01 Headache 46987264 R51.9 discussed with [place] at dr do office and recommende d going back to ed for eval. pt sent to [facility] for eval report called to Marlin. Abnormal g ait due to muscle weakness 934641499 M62.81 [id number] Dylan Ramirescarito [address] [address] 12/12/2022 10:35:13 12/12/2022 11:44:04 Hypercholesterolemia 79199299 E78.00 Hypertensive disorder 38 226468 I10 Hypothyroidism 54990433 E03.9 Type 2 lexx betes mellitus 32127910 E11.21 Long-term current use of drug therapy 029745615 Z79.899 Long-term current use of insulin 272126418 Z79.4 Insulin pump present 450 283862 Z96.41 Abnormal g ait due to impairment of balance 762725259 R26.89 Hyperkalemia 72258991 E8 7.5 Neuropathy 919344809 G62 .9 Pt compliant with plan of careDonald reviewed and appropriat emedicatio n compliance discussedC ontrol substance agreement on fileuds :12/12/22 [id number] Dylan Lebron APRN [address] [address] 01/06/2023 10:15:58 01/06/2023 11:25:08 Acute urinary tract infection 246235273 N39.0 increase fluids Candidiasis of skin 4988 3006 B37.2 Fatigue 37953874 R53.83 Cobalamin deficiency 190 543352 E53.8 [id number] Dylan Lebron APRN [address] [address] 01/13/2023 09:55:30 01/13/2023 10:48:55 Acute urinary tract infection 284696252 N39.0 increase fluid[address]pok e with dr grajeda will send to [facility] for eval and treatment Low blood pressure 46003 003 I95.9 Abnormal g ait due to muscle weakness 382455125 M62.81 [id number] Dylan Lberon APRN [address] [address] 01/31/2023 10:32:52 01/31/2023 11:32:09 Hypercholesterolemia 80382933 E78.00 History of urinary tract infection 4640016318 107 Z87.440 Muscle weakness 30972394 M62.81 Acute urin nasra tract infection 006830196 N39.0 increase fluidsurol ogy consultcx Hyperglyce sera due to type 2 diabetes mellitus 4648096396 98473 E11.65 Hypoglycemia 325784008 E 16.2 pt would benefit from omnipod 5 and dexcom 6- this could prevent hyper and hypoglycem ia episodes [id number] Margarita Banks APRN [facility] [address] [place] [address] 02/04/2023 14:22:54 02/04/2023 15:54:28 Hypertensive disorder 96381092 I10 Type 2 lexx betes mellitus 54207660 E11.21 Coronary arteriosclerosis 44536320 I25.10 Chronic ki dney disease stage 4 477740233 N18.4 Recurrent urinary tract infection 779705645 N39.0 -continue estradiol VC. Hydronephrosis 18622905 N13.30 Patient la dical record not available 334303925 Z76.89 Mixed urin nasra incontinence 471748243 N39.46 Acute urin nasra tract infection 393741925 N39.0 [id number] [facility] [address] [place] [address] 02/13/2023 13:31:33 02/13/2023 14:44:51 Recurrent urinary tract infection 466904530 N39.0 -continue estradiol VC. Hydronephrosis 95395990 N13.30 Chronic ki dney disease stage 4 518094762 N18.4 Hypertensive disorder 38 878180 I10 Type 2 lexx betes mellitus 84620677 E11.21 Coronary arteriosclerosis 43783959 I25.10 Mixed urin nasra incontinence 854894051 N39.46 [id number] [facility] [address] [place] [address] 4 03/06/2023 14:23:11 03/06/2023 15:44:51 Recurrent urinary tract infection 180596414 N39.0 -continue estradiol VC. Hydronephrosis 11437343 N13.30 Chronic ki dney disease stage 4 119273674 N18.4 Hypertensive disorder 38 954905 I10 Type 2 lexx betes mellitus 38762777 E11.21 Coronary arteriosclerosis 31912160 I25.10 Mixed urin nasra incontinence 340109602 N39.46 Acute urin nasra tract infection 203597547 N39.0 [id number] [facility] [address] [place] [address] 4 03/25/2023 13:36:38 03/25/2023 14:21:18 Recurrent urinary tract infection 350400689 N39.0 -continue estradiol VC. Hydronephrosis 77782696 N13.30 Chronic ki dney disease stage 4 171746760 N18.4 Hypertensive disorder 38 368733 I10 Type 2 lexx betes mellitus 00527518 E11.21 Coronary arteriosclerosis 37619533 I25.10 Mixed urin nasra incontinence 503673214 N39.46 Overactive urinary bladder 662789021 N32.81 -avoid anticholin ergics in this patient d/t potential patient harm. anticholin ergics interact with currently rx medication s and combo may incr. 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 Also pt is 72 years old, and anticholin ergics should be avoided d/t BEERS criteria.B eta 3 agonists are the safest alternativ e for this patient. [id number] Margarita Banks APRN [facility] [address] [place] [address] 05/06/2023 13:48:23 05/06/2023 14:45:17 Recurrent urinary tract infection 413993498 N39.0 -continue estradiol VC. Hydronephrosis 68383546 N13.30 Chronic ki dney disease stage 4 143549139 N18.4 Hypertensive disorder 38 175524 I10 Type 2 lexx betes mellitus 74871434 E11.21 Coronary arteriosclerosis 63276901 I25.10 Mixed urin nasra incontinence 883192903 N39.46 Overactive urinary bladder 937072785 N32.81 -avoid anticholin ergics in this patient d/t potential patient harm. anticholin ergics interact with currently rx medication s and combo may incr. 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 Also pt is 72 years old, and anticholin ergics should be avoided d/t BEERS criteria.B eta 3 agonists are the safest alternativ e for this patient. -PFPT- unable to travel. she does not have a PFPT provider within a [address] from her home.-fail ed bladder training. Acute urin nasra tract infection 554588266 N39.0 [id number] Dylan Lebron APRN [address] [address] 04/03/2023 10:54:18 04/03/2023 12:24:14 Neuropathy 617472340 G62.9 Pt compliant with plan of careKasper reviewed and appropriat emedicatio n compliance discussedC ontrol substance agreement on file Long-term drug therapy 951587682 Z79.899 Coronary arteriosclerosis 24423028 I25.10 follow up with cardiology as scheduled Hypercholesterolemia 136 27300 E78.00 Hypertensive disorder 38 072901 I10 Hypothyroidism 55150568 E03.9 Type 2 lexx luz mellitus 41054929 E11.21 due to hypoglycem ia and her having to treat lows she would benefit from the dexcom g6 and omnipod 5 to mange her lows better. pt is scared of hypoglycem ia so at 100 she is treating low with glucose tablets. pt has been hospitaliz ed due to lows. Hypoglycemia 440965779 E 16.2 pt would benefit from omnipod 5 and dexcom 6- this could prevent hyper and hypoglycem ia episodes [id number] Dylan Lebron APRN [address] [address] 04/25/2023 08:48:34 04/25/2023 10:09:13 Influenza vaccine needed 3610746395 106 Z23 Arthritis 5540260 M19.90 Coronary arteriosclerosis 87467410 I25.10 follow up with cardiology as scheduled Gastroesop hageal reflux disease 762697223 K21.9 Hypercholesterolemia 136 90622 E78.00 Hypertensive disorder 38 564118 I10 Hypothyroidism 02411248 E03.9 Neuropathy 691331505 G62 .9 Pt compliant with plan of careKasper reviewed and appropriat emedicatio n compliance discussedC ontrol substance agreement on file Type 2 lexx lzu mellitus 50857552 E11.21 due to hypoglycem ia and her having to treat lows she would benefit from the dexcom g6 and omnipod 5 to mange her lows better. pt is scared of hypoglycem ia so at 100 she is treating low with glucose tablets. pt has been hospitaliz ed due to lows. Acute urin nasra tract infection 342597938 N39.0 increase fluidsurol ogy consultcx [id number] Margarita Banks APRN [facility] [address] [place] [address] 06/05/2023 10:06:54 06/05/2023 11:17:33 Recurrent urinary tract infection 055466115 N39.0 -continue estradiol VC. Hydronephrosis 64487756 N13.30 Chronic ki dney disease stage 4 267365107 N18.4 Hypertensive disorder 38 073071 I10 Type 2 lexx betes mellitus 10826534 E11.21 Coronary arteriosclerosis 05110406 I25.10 Mixed urin nasra incontinence 346806858 N39.46 Overactive urinary bladder 864272410 N32.81 -avoid anticholin ergics in this patient d/t potential patient harm. anticholin ergics interact with currently rx medication s and combo may incr. 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 Also pt is 72 years old, and anticholin ergics should be avoided d/t BEERS criteria.B eta 3 agonists are the safest alternativ e for this patient. -PFPT- unable to travel. she does not have a PFPT provider within a [address] from her home.-fail ed bladder training. Candidiasis of vagina 72 714442 B37.31 reported per pt with abx tx. [id number] Dylan Lebron APRN [address] [address] 05/23/2023 13:24:23 05/23/2023 14:10:28 History of urinary tract infection 3493181567 107 Z87.440 Increased frequency of urination 275107296 R35.0 Acute back pain with sciatica 138491928 M54.41 monitor glucose close [id number] Margarita Banks DYNO TECHNICIAN [facility] [address] [place] [address] 07/10/2023 11:09:05 07/10/2023 11:36:55 Recurrent urinary tract infection 083566459 N39.0 -continue estradiol VC. Hydronephrosis 35679140 N13.30 Chronic ki dney disease stage 4 840552275 N18.4 Hypertensive disorder 38 608324 I10 Type 2 lexx betes mellitus 73778464 E11.21 Coronary arteriosclerosis 93202302 I25.10 Mixed urin nasra incontinence 234535257 N39.46 Overactive urinary bladder 783447074 N32.81 -avoid anticholin ergics in this patient d/t potential patient harm. anticholin ergics interact with currently rx medication s and combo may incr. 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 Also pt is 72 years old, and anticholin ergics should be avoided d/t BEERS criteria.B eta 3 agonists are the safest alternativ e for this patient. -PFPT- unable to travel. she does not have a PFPT provider within a [address] from her home.-fail ed bladder training. [id number] Dylan Lebron APRN [facility] [address] [place] [address] 07/01/2023 14:51:59 07/01/2023 16:21:06 Arthritis 6514238 M19.90 Neuropathy 471702467 G62 .9 Pt compliant with plan of careKasper reviewed and appropriat emedicatio n compliance discussedC ontrol substance agreement on fileuds: History of urinary tract infection 7717391083 107 Z87.440 Pain of ri ght hip joint 8240836801 03326 M25.551 steroids if no improvemen t will order xrays Pain of ri ght ankle joint 9609215398 2440548 M25.571 Chronic ki dney disease 469434284 N18.9 Middle ear effusion 1004 977456 H74.8X9 steroidsmo nitor glucose close [id number] Margarita Banks APRN [facility] [address] [place] [address] 08/20/2023 09:32:55 08/20/2023 10:07:07 Recurrent urinary tract infection 474990592 N39.0 -continue estradiol VC. Hydronephrosis 62387306 N13.30 Chronic ki dney disease stage 4 095428603 N18.4 Hypertensive disorder 38 321959 I10 Type 2 lexx betes mellitus 91238237 E11.21 Coronary arteriosclerosis 14494267 I25.10 Mixed urin nasra incontinence 493025854 N39.46 Overactive urinary bladder 177860749 N32.81 -avoid anticholin ergics in this patient d/t potential patient harm. anticholin ergics interact with currently rx medication s and combo may incr. 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 Also pt is 72 years old, and anticholin ergics should be avoided d/t BEERS criteria.B eta 3 agonists are the safest alternativ e for this patient. -PFPT- unable to travel. she does not have a PFPT provider within a [address] from her home.-fail ed bladder training. [id number] [facility] [address] [place] [phone] 10/01/2023 10:33:52 10/01/2023 11:15:46 Recurrent urinary tract infection N39.0 -continue estradiol VC. Hydronephrosis 81341241 N13.30 Chronic ki dney disease stage 4 698748833 N18.4 Hypertensive disorder 38 767099 I10 Type 2 lexx betes mellitus 85204829 E11.21 Coronary arteriosclerosis 02035290 I25.10 Mixed urin nasra incontinence 648641757 N39.46 Overactive urinary bladder 004087238 N32.81 -avoid anticholin ergics in this patient d/t potential patient harm. anticholin ergics interact with currently rx medication s and combo may incr. 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 Also pt is 72 years old, and anticholin ergics should be avoided d/t BEERS criteria.B eta 3 agonists are the safest alternativ e for this patient. -PFPT- unable to travel. she does not have a PFPT provider within a [address] from her home.-fail ed bladder training. [id number] [facility] [address] [place] [address] 11/12/2023 10:37:57 11/12/2023 11:26:49 Recurrent urinary tract infection N39.0 -continue estradiol VC. Hydronephrosis 20917479 N13.30 Chronic ki dney disease stage 4 973984579 N18.4 Hypertensive disorder 38 315290 I10 Type 2 lexx betes mellitus 77442192 E11.21 Coronary arteriosclerosis 30289890 I25.10 Mixed urin nasra incontinence 757251039 N39.46 Overactive urinary bladder 886869300 N32.81 -avoid anticholin ergics in this patient d/t potential patient harm. anticholin ergics interact with currently rx medication s and combo may incr. 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 Also pt is 72 years old, and anticholin ergics should be avoided d/t BEERS criteria.B eta 3 agonists are the safest alternativ e for this patient. -PFPT- unable to travel. she does not have a PFPT provider within a [address] from her home.-fail ed bladder training. [id number] [facility] [address] [place] [address] 12/31/2023 10:10:39 12/31/2023 10:57:14 Recurrent urinary tract infection 880577398 N39.0 -continue estradiol VC. Hydronephrosis 51771071 N13.30 Chronic ki dney disease stage 4 418856841 N18.4 Hypertensive disorder 38 264670 I10 Type 2 lexx betes mellitus 62319662 E11.21 Coronary arteriosclerosis 06973862 I25.10 Mixed urin nasra incontinence 159400711 N39.46 Overactive urinary bladder 491022952 N32.81 -avoid anticholin ergics in this patient d/t potential patient harm. anticholin ergics interact with currently rx medication s and combo may incr. 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 Also pt is 72 years old, and anticholin ergics should be avoided d/t BEERS criteria.B eta 3 agonists are the safest alternativ e for this patient. -PFPT- unable to travel. she does not have a PFPT provider within a [address] from her home.-fail ed bladder training. Body mass index 25-29 - overweight 567885184 Z68.28 BMI 28.9 Overweight 499110708 E66 .3 Patient la dical record not available 474585974 Z76.89 [id number] [facility] [address] [place] [address] 11/27/2023 09:40:33 11/27/2023 10:21:23 Recurrent urinary tract infection N39.0 -continue estradiol VC. Hydronephrosis 29548893 N13.30 Chronic ki dney disease stage 4 914094077 N18.4 Hypertensive disorder 38 098472 I10 Type 2 lexx betes mellitus 21791953 E11.21 Coronary arteriosclerosis 97846140 I25.10 Mixed urin nasra incontinence 118048815 N39.46 Overactive urinary bladder 026681946 N32.81 -avoid anticholin ergics in this patient d/t potential patient harm. anticholin ergics interact with currently rx medication s and combo may incr. 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 Also pt is 72 years old, and anticholin ergics should be avoided d/t BEERS criteria.B eta 3 agonists are the safest alternativ e for this patient. -PFPT- unable to travel. she does not have a PFPT provider within a [address] from her home.-fail ed bladder training. Candidiasis of mouth 797 66336 B37.0 Candidiasis of vagina 72 223082 B37.31 reported per pt with abx tx. Patient me dical record not available 263250725 Z76.89 [id number] Dylan Lebron APRN [address] [address] 12/02/2023 10:14:12 12/02/2023 11:50:08 Neuropathy 740420832 G62.9 Pt compliant with plan of careKaspmegha reviewed and appropriat emedicatio n compliance discussedC ontrol substance agreement on fileuds: Syncope 875993855 R55 if episode happens go to ed Intermitte nt confusion 204565552 R41.0 referral to neuro Candidiasis of skin 4988 3006 B37.2 yogurt Candidiasis of mouth 797 79365 B37.0 [id number] Margarita Banks APRN [facility] [address] [place] [address] 02/04/2024 11:12:56 02/04/2024 13:31:27 Recurrent urinary tract infection 483331459 N39.0 -continue estradiol VC. Hydronephrosis 49254053 N13.30 Chronic ki dney disease stage 4 139168151 N18.4 Hypertensive disorder 38 743092 I10 Type 2 lexx betes mellitus 15171916 E11.21 Coronary arteriosclerosis 80202510 I25.10 Mixed urin nasra incontinence 445509497 N39.46 Overactive urinary bladder 146646067 N32.81 -avoid anticholin ergics in this patient d/t potential patient harm. anticholin ergics interact with currently rx medication s and combo may incr. 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 Also pt is 72 years old, and anticholin ergics should be avoided d/t BEERS criteria.B eta 3 agonists are the safest alternativ e for this patient. -PFPT- unable to travel. she does not have a PFPT provider within a [address] from her home.-fail ed bladder training. Body mass index 25-29 - overweight 703633486 Z68.28 BMI 28.9 Overweight 872696146 E66 .3 Acute urin nasra tract infection 038543302 N39.0 [id number] Margarita Banks APRN [facility] [address] [place] [address] 03/24/2024 11:07:18 03/24/2024 11:59:47 Recurrent urinary tract infection 915260354 N39.0 -continue estradiol VC. Hydronephrosis 08378468 N13.30 Chronic ki dney disease stage 4 573455769 N18.4 Hypertensive disorder 38 183443 I10 Type 2 lexx betes mellitus 21002359 E11.21 Coronary arteriosclerosis 46699182 I25.10 Mixed urin nasra incontinence 973029246 N39.46 Overactive urinary bladder 199402398 N32.81 -avoid anticholin ergics in this patient d/t potential patient harm. anticholin ergics interact with currently rx medication s and combo may incr. 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 Also [...] legs. Body mass index 25-29 - overweight 031841659 Z68.28 BMI 28.9 Overweight 782926212 E66 .3 [id number] Dylan Lebron APRN [address] [address] 02/24/2024 10:32:52 02/24/2024 12:15:00 Type 2 diabetes mellitus 46533459 E11.21 labs Influenza vaccine needed 8034802846 106 Z23 Coronary arteriosclerosis 64633467 I25.10 follow up with cardiology as scheduled Hypercholesterolemia 136 39704 E78.00 labs Hypertensive disorder 38 250992 I10 labs Hypothyroidism 81256786 E03.9 labs Neuropathy 871007594 G62 .9 Pt compliant with plan of Alcides reviewed and appropriat emedicatio n compliance discussedC ontrol substance agreement on fileuds: Candidiasis of skin 4988 3006 B37.2 yogurt Long-term drug therapy 450887498 Z79.093 [id number] Dylan Lebron APRN [facility] [address] [place] [address] 03/08/2024 14:13:34 03/08/2024 15:45:05 Type 2 diabetes mellitus 57207600 E11.21 needs the omnipod 5 that works with dexcom 7 so the pump can adjust based on cgm, high risk for hyperglyce sera Low back pain 702783507 M54.41 seen xray and talked with pt- due to broken hardware i have asked they only work with pt on her gait and balance and informed pt of xray results so she would understand . [id number] Margarita Banks [facility] [address] [place] [address] 05/25/2024 11:21:29 05/25/2024 12:02:02 Recurrent urinary tract infection 562031699 N39.0 -continue estradiol VC. Hydronephrosis 20963498 N13.30 Chronic ki dney disease stage 4 226374049 N18.4 Hypertensive disorder 38 882145 I10 Type 2 lexx betes mellitus 14947234 E11.21 Coronary arteriosclerosis 91601634 I25.10 Mixed urin nasra incontinence 542003565 N39.46 Overactive urinary bladder 704642408 N32.81 -avoid anticholin ergics in this patient d/t potential patient harm. anticholin ergics interact with currently rx medication s and combo may incr. 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 Also [...] legs. Body mass index 25-29 - overweight 797891189 Z68.28 BMI 28.9 Overweight 197192330 E66 .3 [id number] Margarita Banks DYNO TECHNICIAN [facility] [address] [place] [address] 08/24/2024 10:39:52 08/24/2024 11:30:09 Recurrent urinary tract infection 447133373 N39.0 -continue estradiol VC. Overactive urinary bladder 704536176 N32.81 -avoid anticholin ergics in this patient d/t potential patient harm. anticholin ergics interact with currently rx medication s and combo may incr. 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 Also pt is 72 years old, and anticholin ergics should be avoided d/t BEERS criteria.B eta 3 agonists are the safest alternativ e for this patient. -PFPT- unable to travel. she does not have a PFPT provider within a [address] from her home.-fail ed bladder training. failed myrbetriq- caused swelling in legs. Hydronephrosis 21616489 N13.30 Chronic ki dney disease stage 4 957960860 N18.4 Hypertensive disorder 38 371810 I10 Type 2 lexx betes mellitus 08051228 E11.21 Coronary arteriosclerosis 06493434 I25.10 Mixed urin nasra incontinence 291590699 N39.46 Body mass index 25-29 - overweight 966344501 Z68.28 BMI 28.9 Overweight 398105872 E66 .3 [id number] Dylan Lebron APRN [address] [address] 2024 12:53:40 2024 14:27:55 Type 2 diabetes mellitus 35151665 E11.21 needs the omnipod 5 that works with dexcom 7 so the pump can adjust based on cgm, high risk for hyperglyce sera Hypertensive disorder 38 501251 I10 Hypercholesterolemia 136 15792 E78.00 Gastroesop hageal reflux disease 320295008 K21.9 Hypothyroidism 13568165 E03.9 Neuropathy 050617716 G62 .9 Pt compliant with plan of careDonald reviewed and appropriat emedicatio n compliance discussedC ontrol substance agreement on fileuds: Arthritis 9580712 M19.90 Coronary arteriosclerosis 03869332 I25.10 follow up with cardiology as scheduled Acute urin nasra tract infection 088642112 N39.0 increase fluidsurol ogy consultcx Abnormal g ait due to impairment of balance 284629669 R26.89 [id number] Dylan Lebron APRN [address] [address] 07/19/2024 10:50:07 07/19/2024 12:07:19 Acute urinary tract infection 581718384 N39.0 increase fluidsurol ogy consultcx Type 2 lexx betes mellitus 58042414 E11.21 needs the omnipod 5 that works with dexcom 7 so the pump can adjust based on cgm, high risk for hyperglyce miacarb to insulin ratio changed and target range adjusted. Vertigo 896321891 R42 [id number] Margarita Banks DYNO TECHNICIAN [facility] [address] [place] [address] 10/08/2024 13:08:12 10/08/2024 14:14:05 Recurrent urinary tract infection 484233838 N39.0 -continue estradiol VC. Overactive urinary bladder 986879159 N32.81 -avoid anticholin ergics in this patient d/t potential patient harm. anticholin ergics interact with currently rx medication s and combo may incr. 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 Also [...] d gemtesa- caused swelling in legs. Hydronephrosis 30863551 N13.30 Chronic ki dney disease stage 4 263592156 N18.4 Hypertensive disorder 38 203778 I10 Type 2 lexx betes mellitus 48512579 E11.21 Coronary arteriosclerosis 38977283 I25.10 Mixed urin nasra incontinence 841893429 N39.46 Body mass index 25-29 - overweight 245564304 Z68.28 BMI 28.9 Overweight 611238237 E66 .3 [id number] Dylan Lebron [address] [address] 09/02/2024 13:48:04 09/02/2024 15:32:54 Neuropathy 799137898 G62.9 Pt compliant with plan of careKasper reviewed and appropriat emedicatio n compliance discussedC ontrol substance agreement on fileuds: Long-term drug therapy 803393645 Z79.899 Acute maxi llary sinusitis 59821390 J01.00 on cipro Cough 68273442 R05.9 meds [id number] Dylan Lebron [address] [address] 09/27/2024 11:37:40 09/27/2024 12:12:41 Candidiasis of vagina 02887677 B37.31 take diflucan tab- only took one tabwait for cx results on urine and vaginal- before starting antibiotic s [id number] Dylan Lebron [address] [address] 11/19/2024 10:13:18 11/19/2024 13:47:54 Adult health examination 757536297 Z00.00 Depression screening 171 551451 Z13.31 A depression screening was completed via a standardiz ed screening tool. 5 minutes were spent discussing depression screening results and risk factors. Examinatio n of blood pressure 054180908 Z01.30 Diet education 29892173 Z71.3 Counseling 329108309 Z71 .82 Exercise counseling . Patient encouraged to exercise 30 minutes 5 days a week. At increas ed risk for falls 338015627 Z91.81 STEADI FAST screening score of _12____. Advance care planning 71 8046256 Z71.89 Gout 38550819 M10.9 Hypertensive disorder 38 101202 I10 Hypercholesterolemia 136 56100 E78.00 Type 2 lexx betes mellitus 82433933 E11.21 Hypothyroidism 90869022 E03.9 Neuropathy 360102224 G62 .9 Pt compliant with plan of careKasper reviewed and appropriat emedicatio n compliance discussedC ontrol substance agreement on fileuds: Hepatitis C screening declined 7411654783 5105 Z53.20 Ulcer of t oe due to type 2 diabetes mellitus 6628779391 33701 E11.621 L97.529 follow up with podiatryan tibioticsb etadine soaked dressings change dressing daily Pain of le ft knee joint 2534829587 78132 M25.562 Impaired cognition 74089 6002 G31.84 Low blood pressure 62353 003 I95.9 Syncope and collapse 309 481070 R55 if episode happens go to ed [id number] Dylan Lebron APRN [address] [address] 11/29/2024 12:36:15 11/29/2024 14:31:57 Acute urinary tract infection 362967666 N39.0 increase fluids cx Syncope and collapse 309 755607 R55 if episode happens go to ed Type 2 lexx betes mellitus 96130216 E11.21 Infection of foot due to diabetes mellitus 386841716 E11.628 L08.9 follow up with taty on ue antibiotic s- one dose left Health Concerns Section Related Observation LastModified by Organization Detai ls LastModified Time None Recorded Concern Status LastModified by Organization Details LastModified Time None Recorded Advance Directives Directive N: Payers Insurance Date Sequence Insurance Name Policy Number Policy Elena Covered Member ID Elena Member ID Guarantor Name 11/16/2024 [employer] [place] - [facility] (MEDICARE) Jillian Robert [id number] Jillian Robert 11/16/2024 1 [place] Jillian Robert [id number] Jillian Robert 01/05/2022 1 [place] [employer] Jillian Robert [id number] Jillian Robert 11/24/2024 2 FOR LIFE ( - MEDICARE SUPPLEMENT) [id number] Mariano Robert [id number] Jillian Robert 12/17/2021 2 FOR LIFE () Jillian Robert [id number] Jillian Robert Notes Date Note Type Note Provider Name and Address Organization Details Recorded Time 5 text/html 74 year old female who presents to the office today for a follow up onneuropathy- needs a refill on gabapentin- works well for neuropathyhas concerns of cough and green/vasquez congestion x 1 weekpt doing well with her cgm and omnipod- contiune treatment- trying to get omnipod 5 covered to prevent hypoglycemia Dylan Lebron APRN [address], [place], [address], [place] - [facility] 09/02/2024 15:40:57 5 text/html 74 year old female who presents to the office today with concerns ofyeast infection- she was prescribed fluconazole on 09-21-24 one tab, also used monistat 3 tubesstopped taking Gemtesa, she thought it might have caused yeast infection, states vaginal burning and itching, burning with urination Dylan Lebron APRN [address], [place], [address], [place] - [facility] 09/27/2024 14:06:54 5 text/html Lower Urinary Tract Symptoms (LUTS)Reported bypatient.Location:[facility] er Quality:worsening Severity:bothersome Onset/Timing:> 1 [...] faecalis -mid december 2022- d/c summary from [facility] reports admit for left pyelo UCX grew klebsiella pneumoniae. -01/13/23- UCx negative.-01/13/23- creat 2.2, gfr 27. -01/13/23- CT abd pel w/o- per report- moderate hydronephrosis and hydroureter on the left, stable. moderate thickening of the bladder, likely d/t under distension. -01/14/23- d/c summary from [facility]- reviewed. admitted 01/13/23 for uti. ucx [...] forgot to restart it again Margarita Banks, DYNO TECHNICIAN [address], [place], [address], [place] - [facility] 10/08/2024 14:12:25 5 text/html [...] as EMS personnel arrived. Patient taken to per [facility]. Dylan Lebron, DYNO TECHNICIAN [address], [place], [address], [place] - [facility] 11/19/2024 16:25:37 5 text/html Emergency Department Follow-Up RecordReported bypatient.Discharge InformationName of hospital/urgent care patient was seen: ([facility]); Patient presented to hospital/urgent care on [...] for months but more noticeable lately. Dylan Lebron, DYNO TECHNICIAN [address], [place], [address], [place] - [facility] 11/29/2024 14:13:11 OBGyn Episode No OBEpisode recorded.
--- OUTSIDE RECORDS SUMMARY | 2024-12-03 09:51 | XMS_ITS | Continuity of Care Document ---
Author Organization [facility] Address [address] [place] [address] Care Team Providers Care Rubber Calender Helper Name Role Phone DYLAN LEBRON Primary Care Provider MAKENZIE Dahl Continuity Clerk STEPH BLAS Cloth Winding Supervisor DENIS RAMIREZ Car Dispatcher Assessment Encounter Date Assessment Date Assessment LastModified [...] future with preventative. PCR pending, followup 4months [place] [id number] Not available 10/08/2024 14:11:17 Plan of Treatment Reminders Order Date Submit Date Provider Last Modified By Organization Details Last Modified Time Details Appointments Follow Up 20 2024 01:00P M Margarita Banks APRN Not available Not available Not available Lab urinalysi s, dipstick 2024 025 [facility], [address] [place], [place], [address], 10/08/2024 14:10:34 infectiou s disease panel 2024 025 [facility], [address], [place], [address], 10/11/2024 07:49:41 Referral None recorded. Procedures None recorded. Surgeries None recorded. Imaging None recorded. Medication Orders estradiol 0.01% (0.1 mg/gram) vaginal cream 2024 025 [facility], [facility] [place], [address], 10/08/2024 14:10:36 methenami ne hippurate 1 gram tablet 2024 025 [facility], [facility] [place], [address], 10/08/2024 14:11:40 Patient TargetsNo targets recorded. Patient Instructions Encounter Date Encounter Id Patient Instructions Last Modified By Organization Details Last Modified Time 10/08/2024 [id number] high blood pressure: care instructions Not available [...] Not Available [facility] [address] [place], [address], 10/04/2024 09:39:08 10/09/19 25 10/08/2024 urina lysis , dipst ick Nitrite negati ve Not Available [facility] [address] [place], [address], 10/04/2024 09:39:08 10/09/19 25 10/08/2024 urina lysis , dipst ick Urobilinogen .2 Not Available [facility] [address] [place], [address], 10/04/2024 09:39:08 10/09/19 25 10/08/2024 urina lysis , dipst ick Protein 100 Not Available [facility] [address] [place], [address], 10/04/2024 09:39:08 10/09/19 25 10/08/2024 urina lysis , dipst ick pH 5.5 Not Available [facility] [address] [place], [address], 10/04/2024 09:39:08 10/09/19 25 10/08/2024 urina lysis , dipst ick Blood Negati ve Not Available [facility] [address] [place], [address], 10/04/2024 09:39:08 10/09/19 25 10/08/2024 urina lysis , dipst ick Specific [place] 1.030 Not Available [facility] [address] [place], [address], 10/04/2024 09:39:08 10/09/19 25 10/08/2024 urina lysis , dipst ick Ketone Negati ve Not Available [facility] [address] [place], [address], 10/04/2024 09:39:08 10/09/19 25 10/08/2024 urina lysis , dipst ick Bilirubin Negati ve Not Available [facility] [address] [place], [address], 10/04/2024 09:39:08 10/09/19 25 10/08/2024 urina lysis , dipst ick Glucose Negati ve Not Available [facility] [address] [place], [address], 10/04/2024 09:39:08 10/09/19 25 10/08/2024 urina lysis , dipst ick Appearance Clear Not Available [facility] [address] [place], [address], 10/04/2024 09:39:08 10/09/19 25 10/08/2024 urina lysis , dipst ick Color Yellow Not Available [facility] [address] [place], [address], 10/04/2024 09:39:08 11/20/19 25 11/19/2024 elect rocar diogr am No observ ation record ed. [address], [address], 11/19/2024 16:58:35 11/20/19 25 11/19/2024 elect rocar diogr am No observ [facility] [address], [place], [address], 11/22/2024 09:08:29 11/23/19 25 11/19/2024 elect rocar diogr am No observ ation record ed. [email or web address] [address], [place], [address], 11/23/2024 16:34:11 11/23/19 25 11/22/2024 XR, foot, 3 or more view No observ ation record ed. [facility] [address], [place], [address], 11/23/2024 18:15:43 11/30/19 25 11/19/2024 cardi ac monit or No observ ation record ed. [facility] [address], [place], [address], 11/30/2024 10:43:31 Result Notes None recorded. Problems Name Problem SNOMED Code Status Onset Date Resolution Date Notes Provider Name and Address Organization Details Recorded Time Type 2 diabetes mellitus 09670461 Active 2021 Dylan Lebron APRN [address], [place], [address], [place] - [facility] 10:07:29 Hypertensive disorder 33285937 Active 2021 Dylan Lebron APRN [address], [place], [address], [place] [facility] 10:07:09 Hypercholester olemia 18547850 Active 2021 Dylan Lebron APRN [address], [place], [address], [place] [facility] 10:07:05 Gastroesophage al reflux disease 822457870 Active 2021 Dylan Lebron [employer] [address], [place], [address], [place] [facility] 10:06:49 Hypothyroidism 24846320 Active 2021 Dylan Lebron APRN [address], [place], [address], [place] [facility] 10:07:12 Neuropathy 243409133 Active 2021 Dylan Lebron APRN [address], [place], [address], [place] [facility] 2 10:07:19 Arthritis 1427125 Active 2021 Dylan Lebron, [employer] [address], [place], [address], [place] - [facility] 2 10:06:47 Coronary arterioscleros is 71662952 Active 2021 Dylan Lebron, [employer] [address], [place], [address], [place] - [facility] 2 10:18:21 Coronary artery bypass grafts x 3 Active 2021 Dlyan Lberon, [employer] [address], [place], [address], [place] - [facility] 2 10:18:34 Problem Notes None recorded. Procedures Surgical History Date Name Laterality Status Provider Name and Address Organization Details Recorded Time 025 Medication Reconcilliation completed Fina Vasquez [place] - [facility] 11/29/2024 13:05:51 025 Advance Care Planning completed Fina Vasquez [place] - [facility] 11/19/2024 10:41:02 025 IV Infusion completed Fina Vasquez [place] - [facility] 11/19/2024 15:44:19 025 Functional Status Assessed completed Fina Vsaquez [place] - [facility] 11/19/2024 10:41:02 024 Date of Last Colonoscopy completed Dia Youssef [place] - [facility] 2024 13:27:50 024 Medication Reconcilliation completed Fina Vasquez [place] [facility] 12/02/2023 10:36:18 023 In and Out Catheterization completed Margarita Banks, [employer] [address], [place], [address], [place] - [facility] 02/13/2023 14:34:26 023 Medication Reconcilliation completed Fina GUARDADO - [facility] 01/31/2023 10:55:15 023 Medication Reconcilliation completed Fina GUARDADO - [facility] 01/06/2023 10:21:27 023 Medication Reconcilliation completed Fina Vasquez [place] - [facility] 12/12/2022 10:55:58 023 Medication Reconcilliation completed Fina Craneler [place] - [facility] 11/25/2022 14:44:11 023 Date of Last Mammogram completed Dia Stears [place] - [facility] 10/17/2022 13:02:19 023 Most Recent Mammogram completed Dia Stears [place] - [facility] 10/17/2022 13:02:44 023 Back Surgery completed Fina Craneler [place] - [facility] 12/02/2023 10:40:15 022 Most [...] Name and Address Organization Details Recorded Time 137692 lisinopri l medicatio n rash Not available high 12/17/2021 07688 RxNorm Fina Vasquez null, [place] - [facility] 10:17:08 219678 Oxycontin medicatio n hallucina tions moderate high 12/17/2021 91619 6 RxNorm Fina Vasquez [place] - [facility] 10:18:04 779940 codeine medicatio n rash moderate high 12/17/2021 2670 RxNorm Fina Vasquez [place], [place] - [facility] 10:16:43 645731 acetamino phen / oxycodone medicatio n hallucina tions severe high 12/17/2021 84722 3 RxNorm Fina Vasquez [place] - [facility] 2 10:17:43 393540 cephalexi n medicatio n eye swelling Not available low 11/11/2022 2231 RxNorm Fina [place]ales, [place] - [facility] 3 12:54:33 598433 Macrobid medicatio n diarrhea moderate high 01/13/2023 77614 1 RxNorm vomit ing and diarr hea [...] Not Available Not Available Not Available [facility] 3 mL 08/22 completed Not Available Not [...] Updated DateTime 5 151.13 cm 28.2 kg/m2 54502.1 2 g 86 /min 90 % 90 % 110 mm[Hg] 68 mm[Hg] Marlin Leon [place] - [facility] 5 13:33:59 Social History Question Answer Notes LastModified by Organizat ion Details LastModified Time Tobacco Smoking Status Never Smoker Dia Leivafranko [place] - [facility] 12/17/2021 09:30:03 Do [...] Or The Highest Degree You Have Received? [id number] Information not available 12/17/2021 Have There Been Any Changes To Your Family Or Social Situation? No Information no t available 07/14/2023 What Is The Fluoride Status Of Your Home? Unknown Information not available 07/14/2023 Have You Recently Or Are You Planning To Travel To An Area With Zika Virus? No Information not available 07/14/2023 Do You Have A Medical Power Of Masticator? No Information not available 07/14/2023 What Was [...] anxious, or unable to sleep at night)? [id number] Information not available 12/20/2021 Do you have [...] high-dose, quadrivalent, PF 02/21/2022 completed Dylan Lebron, [employer] [address], [place], [address], [place] - [facility] 03/26/2022 17:30:58 Influenza, high-dose, quadrivalent, PF 04/25/2023 completed Fina Vasquez null, [place] - [facility] 04/25/2023 13:24:26 Influenza, high-dose, trivalent, PF 02/24/2024 completed Fina Vas[place], [place] [facility] 03/11/2024 17:52:11 COVID-19, mRNA, LNP-S, PF, 100 mcg/0.5mL dose or 50 mcg/0.25mL dose 08/02/2020 completed Fina Vasquez null, [place] - [facility] 08/22/2022 14:19:25 COVID-19, mRNA, LNP-S, PF, 100 mcg/0.5mL dose or 50 mcg/0.25mL dose 08/31/2020 completed Fina Vas[place] [facility] 08/22/2022 14:19:25 COVID-19, mRNA, LNP-S, PF, 100 mcg/0.5mL dose or 50 mcg/0.25mL dose 04/11/2021 completed Fina [place] [facility] 08/22/2022 14:19:25 Tdap 04/20/2013 completed Fina Vas[place] [facility] 08/22/2022 14:19:25 zoster live 04/20/2013 completed Fina Vasquez null, [place] - [facility] 08/22/2022 14:19:25 Influenza, high-dose, trivalent, PF 05/16/2021 completed Fina [place] [facility] 08/22/2022 14:19:25 Past Encounters Encounter ID Performer Location Encounter Start Date Encounter Closed Date Diagnosis/Indication Diagnosis SNOMED-CT Code Diagnosis ICD10 Code Diagnosis Note [id number] Margarita Banks APRN [facility] [address] [place] [address] 10/08/2024 13:08:12 10/08/2024 14:14:05 Recurrent urinary tract infection 812249479 N39.0 -continue estradiol VC. Overactive urinary bladder 456186686 N32.81 -avoid anticholin ergics in this patient d/t potential patient harm. anticholin ergics interact with currently rx medication s and combo may incr. 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 Also [...] d gemtesa- caused swelling in legs. Hydronephrosis 52376771 N13.30 Chronic ki dney disease stage 4 241406334 N18.4 Hypertensive disorder 38 128645 I10 Type 2 lexx betes mellitus 74232940 E11.21 Coronary arteriosclerosis 94233954 I25.10 Mixed urin nasra incontinence 425002888 N39.46 Body mass index 25-29 - overweight 658511909 Z68.28 BMI 28.9 Overweight 359775225 E66 .3 [id number] Dylan Lebron APRN [address] [address] 09/27/2024 11:37:40 09/27/2024 12:12:41 Candidiasis of vagina 39809171 B37.31 take diflucan tab- only took one [...] 2 FOR LIFE ( - MEDICARE SUPPLEMENT) [id number] Mariano Robert [id number] Jillian Robert 10/08/2024 1 [place] Jillian Robert [id number] Jillian Robert Notes Date Note Type Note Provider Name and Address Organization Details Recorded Time 5 text/html Lower Urinary Tract Symptoms (LUTS)Reported bypatient.[facility] Quality:worsening Severity:bothersome Onset/Timing:> 1 year [...] faecalis -mid december 2022- d/c summary from [facility] reports admit for left pyelo UCX grew klebsiella pneumoniae. -01/13/23- UCx negative.-01/13/23- creat 2.2, gfr 27. -01/13/23- CT abd pel w/o- per report- moderate hydronephrosis and hydroureter on the left, stable. moderate thickening of the bladder, likely d/t under distension. -01/14/23- d/c summary from [facility]- reviewed. admitted 01/13/23 for uti. ucx [...] forgot to restart it again Margarita Banks, [employer] [address], [place], [address], [place] - [facility] 10/08/2024 14:12:25 OBGyn Episode No OBEpisode recorded.
== END 2024-12-01 23:59 | disposition home or self-care (01) ==
LOC: LAB.DROPOF 12-03 09:48
PROVIDERS: PCP Podiatrist; Visit Provider Podiatrist
DX: E11.621 Type 2 diabetes mellitus with foot ulcer (principal); L97.509 Non-pressure chronic ulcer of other part of unspecified foot with unspecified severity
CPT/HCPCS: 87070; 87077; 87186; 87205

== ENCOUNTER 2024-12-15 11:46 | Outpatient (CLI) | payer MEDICARE, OTHER, SELFPAY ==
--- OUTSIDE RECORDS SUMMARY | 2024-12-15 11:50 | XMS_ITS | Continuity of Care Document ---
Author Organization [facility] Address [address] [place] [address] Care Team Providers Care Artists' Booking Representative Name Role Phone DYLAN LEBRON Primary Care Provider MAKENZIE Dahl Contract Project Manager STEPH BLAS Division Toll Wire Chief DENIS RAMIREZ Instructional Services Specialist Assessment Encounter Date Assessment Date Assessment LastModified [...] [facility], [address], Jose [address], [place], [address], 12/03/2024 17:07:31 C reactive protein, QN, serum or plasma 2024 025 [facility]AB[facility], [address], [place] [address], [place], [address], 12/03/2024 17:07:33 erythrocy te sedimenta tion rate by [place] n method 2024 025 RABIA [facility], [address], [place] [address], [place], [address], 12/03/2024 17:07:31 CMP, serum or plasma 2024 025 RABIA [facility], [address], [place] [address], [place], [address], 12/03/2024 17:07:29 CBC w/ auto diff 2024 025 [facility]AB[facility], [address], [place] [address], [place], [address], 12/03/2024 17:07:28 lipid panel, serum 2024 025 [facility]AB[facility], [address], [place] [address], [place], [address], 12/03/2024 17:07:30 glucose, fingersti ck, blood 2024 025 [facility], [address] [place] [address], [address], 11/19/2024 16:25:32 glucose, fingersti ck, blood 2024 025 [facility], [address] [place] [address], [address], 11/19/2024 16:25:32 TSH + free T4, serum 2024 025 [facility], [address], [address], [place], [address], 12/03/2024 17:07:28 Referral podiatris t referral 2024 025 [facility] Lucia Lozoya Prabhu DPM, [address] [place] [address] [address], [place], [address], 12/02/2024 12:48:[address] referral - [facility] 2024 025 [facility] [address] [facility], [place], [address], 11/22/2024 09:30:46 Procedures None recorded. Surgeries None recorded. Imaging XR, foot, 3 or more view 2024 025 [facility]), [address] [place] [address] [address], [place], [address], 11/22/2024 12:11:05 electroca rdiogram 2024 025 [facility], [address] [place] [address], [address], 11/19/2024 16:58:29 Medication Orders allopurin ol 100 mg tablet 2024 025 [facility], [address] [place] [address], [address], 11/19/2024 12:07:23 doxycycli ne hyclate 100 mg tablet 2024 025 [facility], [address] [place] [address] [address], [place], [id number], 12/06/2024 05:02:48 Normal Saline Flush 0.9 % injection syringe 2024 025 [facility], [address] [place] [address], [address], 11/29/2024 13:06:21 sodium chloride 0.9 % intraveno us solution 2024 025 [facility], [address] [place] [address], [address], 11/29/2024 13:18:14 Patient TargetsNo targets recorded. Patient Instructions Encounter Date Encounter Id Patient Instructions Last Modified By Organization Details Last Modified Time 11/19/2024 [id number] advance directives: care instructions efryman Not available 11/19/2024 12:07:23 learning about depression efryman Not available 11/19/2024 12:07:23 preventing falls : care instructions efryman Not available 11/19/2024 12:07:23 medicare preventive services guide efryman Not available 11/19/2024 12:07:23 Reason for Referral Cooling Tower Operator Referral for Ulce r of toe due to type 2 diabetes mellitus Referring Physician: [facility], Encounter Date: 11/19/2024 Neurologist Referral for [facility] memory clinic Referring Physician: Dylan Lebron [facility], Encounter Date: 11/19/2024 Results Created Date Observation Date Name Description Value Unit Range Abnormal Flag Note LastModifiedBy Organization Detail LastModifiedTime 11/20/19 25 11/19/2024 gluco se, finge rstic k, blood Blood Glucose: mg/dl 118 Not Available [address], [address], 11/19/2024 15:35:59 11/20/19 25 11/19/2024 gluco se, finge rstic k, blood Reference Range (60-100) abnorm al Not Available [address], [address], 11/19/2024 15:35:59 11/20/19 25 11/19/2024 gluco se, finge rstic k, blood Blood Glucose: mg/dl 150 Not Available [address], [address], 11/19/2024 15:35:37 11/20/19 25 11/19/2024 gluco se, finge rstic k, blood Reference Range (60-100) abnorm al Not Available [address], [address], 11/19/2024 15:35:37 11/20/19 25 11/19/2024 elect rocar diogr am No observ ation record ed. efryman [address], [address], 11/19/2024 16:58:35 11/20/19 25 11/19/2024 elect rocar diogr am No observ ation record ed. [place] [id number], [place], [address], 11/22/2024 09:08:29 11/23/19 25 11/19/2024 elect rocar diogr am No observ ation record ed. [email or web address] [address], [address], 11/23/2024 16:34:11 11/23/19 25 11/22/2024 XR, foot, 3 or more view No observ ation record ed. [facility] [address], [place], [address], 11/23/2024 18:15:43 11/30/19 25 11/19/2024 cardi ac monit or No observ ation record ed. [facility] [address], [place], [address], 11/30/2024 10:43:31 Result Notes None recorded. Problems Name Problem SNOMED Code Status Onset Date Resolution Date Notes Provider Name and Address Organization Details Recorded Time Type 2 diabetes mellitus 23338107 Active 2021 Dylan Lebron, GEOCHEMICAL LABORATORY TECHNICIAN [address], [place], [address] , [place] - [facility] 07/11/202 2 10:07:29 Hypertensive disorder 47310729 Active 2021 Dylan Lebron, GEOCHEMICAL LABORATORY TECHNICIAN [address], [place], [address] , [place] - [facility] 2 10:07:09 Hypercholeste rolemia 10292152 Active 2021 Dylan Lebron, GEOCHEMICAL LABORATORY TECHNICIAN [address], [place], [address] , [place] - [facility] 2 10:07:05 Gastroesophag eal reflux disease 171785029 Active 2021 Dylan Lebron, GEOCHEMICAL LABORATORY TECHNICIAN [address], [place], [address] , [place] - [facility] 2 10:06:49 Hypothyroidis m 38709748 Active 2021 Dylan Lebron, GEOCHEMICAL LABORATORY TECHNICIAN [address], [place], [address] , [place] - [facility] 2 10:07:12 Neuropathy 203733714 Active 2021 Dylan Lebron, GEOCHEMICAL LABORATORY TECHNICIAN [address], [place], [address] , [place] [facility] 2 10:07:19 Arthritis 1216553 Active 2021 Dylan Lebron, GEOCHEMICAL LABORATORY TECHNICIAN [address], [place], [address] , [place] [facility] 2 10:06:47 Coronary arteriosclero sis 69422325 Active 2021 Dylan Lebron, GEOCHEMICAL LABORATORY TECHNICIAN [address], [place], [address] , [place] - [facility] 2 10:18:21 Coronary artery bypass grafts x 3 Active 2021 Dylan Lebron, GEOCHEMICAL LABORATORY TECHNICIAN [address], [place], [address] , [place] [facility] 2 10:18:34 Chronic kidney disease stage 3B 531067026 Active Fina [place]ales, [place] - [facility] 5 11:42:05 Problem Notes None recorded. Procedures Surgical History [...] In and Out Catheterization completed Margarita Banks, GEOCHEMICAL LABORATORY TECHNICIAN [address], [place], [address] [place] - [facility] 02/13/2023 14:34:26 023 [...] 13:02:19 023 Most Recent Mammogram completed Dia Leivas [place] - [facility] 10/17/2022 13:02:44 023 [...] Name and Address Organization Details Recorded Time 577747 lisinopri l medicatio n rash Not available high 12/17/2021 01480 RxNorm Fina Vasquez null, [place] - [facility] 2 10:17:08 739781 Oxycontin medicatio n hallucina tions moderate high 12/17/2021 08418 6 RxNorm Fina Vasquez null, [place] - [facility] 2 10:18:04 693973 codeine medicatio n rash moderate high 12/17/2021 2670 Rx[facility] Fina Vasquez null, [place] - [facility] 2 10:16:43 952032 acetamino phen / oxycodone medicatio n hallucina tions severe high 12/17/2021 46948 3 Rx[facility] Fina Vasquez null, [place] - [facility] 2 10:17:43 862754 cephalexi n medicatio n eye swelling Not available low 11/11/2022 2231 Rx[facility] Fina Vasquez null, [place] - [facility] 3 12:54:33 698361 Macrobid medicatio n diarrhea moderate high 01/13/2023 13293 1 RxNorm vomit ing and diarr hea [...] TAKE ONE TABLET BY MOUTH EVERY DAY FOR yeast FOR 3 DAYS active Not Available Not Available No t Available sulfameth oxazole 400 mg-trimet hoprim 80 mg tablet TAKE ONE TABLET BY MOUTH EVERY TWELVE HOURS FOR 10 DAYS -- FINISH ALL MEDICINE -- 09/30 completed Not Available Not Available Not Available ampicilli n 500 mg capsule TAKE ONE CAPSULE BY MOUTH EVERY 6 HOURS FOR infectio n FOR 7 DAYS -- FINISH ALL MEDICINE -- active Not Available Not Available No t Available hydrocodo ne 5 mg-acetam inophen 325 [...] day by oral route for 5 days. 12/11 completed Not Available Not Available Not Available [...] Not Available Not Available Not Avai lable promethaz ine 12.5 mg rectal supposito ry Insert 1 supposit ory every 8 hours by rectal route as needed for 3 days. 2024 active Not Available Not Available [...] completed Not Available Not Available Not Available gentamici n 0.1 % topical cream APPLY TOPICALL Y TO THE AFFECTED AREA(S) TWICE DAILY FOR infectio n active Not Available Not Available No t Available aspirin 81 mg chewable tablet Chew [...] ONE TABLET BY MOUTH EVERY 24 HOURS FOR infectio n FOR 7 DAYS -- FINISH ALL MEDICINE -- active Not Available Not Available No t Available estradiol 0.01% (0.1 mg/gram) vaginal cream Insert 1 g twice a week by vaginal route at bedtime for 90 days. 2024 active Not Available Not Available Not Royce pires levofloxa idalia 750 mg tablet TAKE ONE [...] day by oral route for 10 days. 12/06 completed Not Available Not Available Not Available amoxicill in 875 mg-potass ium clavulana te 125 mg tablet TAKE ONE TABLET BY MOUTH EVERY TWELVE HOURS FOR 10 DAYS -- FINISH ALL MEDICINE -- 10/08 completed Not Available Not Available Not Available amoxicill in 500 mg-potass ium clavulana te 125 mg tablet TAKE ONE TABLET BY MOUTH EVERY TWELVE HOURS FOR 10 DAYS -- FINISH ALL MEDICINE -- --TAKE WITH FOOD-- active Not Available Not Available No t Available meclizine 25 mg chewable tablet TAKE (1/2) TABLET BY MOUTH TWICE DAILY FOR 3 DAYS 09/02 completed Not Available Not Available Not Available [facility] [place] 3 mL 08/22 completed Not Available Not [...] by Pulse oximetry Heart rate Oxygen saturation Provider Name and Address Organization Details Last Updated DateTime 5 151.13 cm 20 /min 28 kg/m2 82062.5 2 g 84 /min 94 % 94 % 64 /min 94 % 94 % 64 /min 92 % Fina Vasquez [place] - [facility] 5 15:38:34 Date Recorded Oxygen saturation in Arterial blood by Pulse oximetry Oxygen saturation Oxygen saturation in Arterial blood by Pulse oximetry Inhaled oxygen flow rate Oxygen saturation Oxygen saturation in Arterial blood by Pulse oximetry Inhaled oxygen flow rate Heart rate Heart rate Systolic And Diastolic Systolic And Diastolic Systolic And Diastolic Systolic And Diastolic Systolic And Diastolic Provider Name and Address Organization Details Last Updated DateTime 5 92 % 97 % 97 % 3 L/min 100 % 100 % 3 L/min 74 /min 57 /min 130/82 mm[Hg] 70/50 mm[Hg] 82/52 mm[Hg] 110/60 mm[Hg] 100/60 mm[Hg] Fina Craneler [place] - [facility] 5 15:39:55 Social History Question Answer Notes LastModified by Organizat ion Details LastModified Time Tobacco Smoking Status Never Smoker [facility]ia [place] [place] [facility] 12/17/2021 09:30:03 Do You Have An Advance [...] Or The Highest Degree You Have Received? [id number] Information not available 12/17/2021 Have There Been Any Changes To Your Family Or Social Situation? No Information no t available 07/14/2023 What Is The Fluoride Status Of Your Home? Unknown Information not available 07/14/2023 Have You Recently Or Are You Planning To Travel To An Area With Zika Virus? No Information not available 07/14/2023 Do You Have A Medical Power Of Polishing Wheel Repairer? No Information not available 07/14/2023 What Was [...] anxious, or unable to sleep at night)? [id number] Information not available 12/20/2021 Do you have [...] high-dose, quadrivalent, PF 02/21/2022 completed Dylan Lebron, GEOCHEMICAL LABORATORY TECHNICIAN [address], [place], [address], [place] - [facility] 03/26/2022 17:30:58 Influenza, high-dose, [...] [facility] 08/22/2022 14:19:25 zoster live 04/20/2013 completed [place] - [facility] 08/22/2022 14:19:25 Influenza, high-dose, trivalent, PF 05/16/2021 completed [place] - [facility] 08/22/2022 14:19:25 Past Encounters Encounter ID Performer Location Encounter Start Date Encounter Closed Date Diagnosis/Indication Diagnosis SNOMED-CT Code Diagnosis ICD10 Code Diagnosis Note [id number] Dylan Lebron APRN [address] [address] 11/19/2024 10:13:18 11/19/2024 13:47:54 Adult health examination 080067540 Z00.00 Depression screening 171 714513 Z13.31 A depression screening was completed via a standardiz ed screening tool. 5 minutes were spent discussing depression screening results and risk factors. Examinatio n of blood pressure 993575313 Z01.30 Diet education 22133231 Z71.3 Counseling 682413226 Z71 .82 Exercise counseling . Patient encouraged to exercise 30 minutes 5 days a week. [facility] risk for falls 765723581 Z91.81 STEADI FAST screening score of _12____. Advance care planning 71 9618350 Z71.89 Gout 66094025 M10.9 Hypertensive disorder 38 685774 I10 Hypercholesterolemia 136 21130 E78.00 Type 2 lexx betes mellitus 01124787 E11.21 Hypothyroidism 26329635 E03.9 Neuropathy 374228362 G62 .9 Pt compliant with plan of careKaer reviewed and appropriat emedicatio n compliance discussedC ontrol substance agreement on fileuds: Hepatitis C screening declined 0372707237 5105 Z53.20 Ulcer of t oe due to type 2 diabetes mellitus 4473439216 78730 E11.621 L97.529 follow up with podiatryan tibioticsb etadine soaked dressings change dressing daily Pain of le ft knee joint 0145879139 28790 M25.562 Impaired cognition 28590 6002 G31.84 Low blood pressure 97986 003 I95.9 Syncope and collapse 309 294614 R55 if episode happens go to ed Health Concerns Section Related Observation LastModified by Organization Detai ls LastModified Time None Recorded Concern Status LastModified by Organization Details LastModified Time None Recorded Payers Encounter Date Sequence Insurance Name Policy Number Policy Elena Covered Member ID Elena Member ID Guarantor Name 11/19/2024 2 FOR LIFE ( - MEDICARE SUPPLEMENT) [id number] Mariano Robert [id number] Jillian Robert 11/19/2024 1 [place] Jillian Robert [id number] Jillian Robert Notes Date Note Type Note [...] as EMS personnel arrived. Patient [facility] per [facility]. Dylan Lebron, GEOCHEMICAL LABORATORY TECHNICIAN [address], [place], [address], [place] - [facility] 11/19/2024 16:25:37 OBGyn Episode No OBEpisode recorded.
--- OUTSIDE RECORDS SUMMARY | 2024-12-15 11:50 | XMS_ITS | Continuity of Care Document ---
Author Organization [facility] Address [address] [place] [address] Care Team Providers Care Patternmaker Plastics Name Role Phone DYLAN KING Primary Care Provider MAKENZIE Dahl Industrial Automation Specialist STEPH BLAS Casting Repairer DENIS RAMIREZ Truck Hop Assessment No assessment recorded. Plan of Treatment Reminders Order Date Submit Date Provider Last Modified By Organization Details Last Modified Time Details Appointments Follow Up 20 2024 01:00P M Margarita Banks, GAMA Not available Not available Not available Lab CBC w/ auto diff 2024 025 LINDRITH [facility], [address], Jose F, [place], [address], 12/10/2024 04:06:40 Referral None recorded . Procedures None recorded . Surgeries None recorded . Imaging None recorded . Medication Orders None recorded . Patient TargetsNo targets recorded. Patient InstructionsNo instructions recorded. Reason for Referral None Reported. Results Created Date Observation Date Name Description Value Unit Range Abnormal Flag Note LastModifiedBy Organization Detail LastModifiedTime 11/20/1911/19/2024 elect rocar diogr am No observ ation record ed. [address], [address], 11/19/2024 16:58:35 11/20/19 25 11/19/2024 elect rocar diogr am No observ ation record ed. [facility] [address], [place], [address], 11/22/2024 09:08:29 11/23/19 25 11/19/2024 elect mary anne negrete am No observ ation record ed. [email or web address] [address], [place], [address], 11/23/2024 16:34:11 11/23/19 25 11/22/2024 XR, foot, 3 or more view No observ ation record ed. [facility] [address], [place], [address], 11/23/2024 18:15:43 11/30/19 25 11/19/2024 cardi ac monit or No observ ation record ed. [facility] [address], [place], [address], 11/30/2024 10:43:31 Result Notes None recorded. Problems Name Problem SNOMED Code Status Onset Date Resolution Date Notes Provider Name and Address Organization Details Recorded Time Type 2 diabetes mellitus 54925878 Active 2021 Dylan King APRN [address], [place], [address] , [place] - [facility] 2 10:07:29 Hypertensive disorder 93464342 Active 2021 Dylan King APRN [address], [place], [address] , [place] [facility] 2 10:07:09 Hypercholeste rolemia 36782463 Active 2021 Dylan King APRN [address], [place], [address] , [place] [facility] 2 10:07:05 Gastroesophag eal reflux disease 008533548 Active 2021 Dylan King APRN [address], [place], [address] , [place] [facility] 2 10:06:49 Hypothyroidis m 14550591 Active 2021 Dyaln King, TEN PIN BOWLING CENTRE MANAGER [address], [place], [address] , [place] [facility] 2 10:07:12 Neuropathy 977892428 Active 2021 Dylan King, TEN PIN BOWLING CENTRE MANAGER [address], [place], [address] , [place] [facility] 2 10:07:19 Arthritis 3796483 Active 2021 Dylan King, TEN PIN BOWLING CENTRE MANAGER [address], [place], [address] , [place] [facility] 2 10:06:47 Coronary arteriosclero sis 19884621 Active 2021 Dylan King, TEN PIN BOWLING CENTRE MANAGER [address], [place], [address] , [place] [facility] 2 10:18:21 Coronary artery bypass grafts x 3 Active 2021 Dylan King, TEN PIN BOWLING CENTRE MANAGER [address], [place], [address] , [place] [facility] 2 10:18:34 Chronic kidney disease stage 3B 079072667 Active Fina perales [place] - [facility] 5 11:42:05 Problem Notes [...] 025 Functional Status Assessed completed Fina Vasquez [place] - [facility] 11/19/2024 10:41:02 024 Date of Last Colonoscopy completed Dia Youssef [place] - [facility] 2024 13:27:50 024 Medication Reconcilliation completed Fina Vasquez [place] [facility] 12/02/2023 10:36:18 023 In and Out Catheterization completed Margarita Banks, TEN PIN BOWLING CENTRE MANAGER [address], [place], [address] [place] [facility] 02/13/2023 14:34:26 023 Medication Reconcilliation completed Fina Vasquez [place] [facility] 01/31/2023 10:55:15 023 Medication Reconcilliation completed Fnia Vasquez [place] [facility] 01/06/2023 10:21:27 023 [...] Name and Address Organization Details Recorded Time 107575 lisinopri l medicatio n rash Not available high 12/17/2021 35313 RxNorm Fina Vasquez [place], [place] [facility] 10:17:08 952141 Oxycontin medicatio n hallucina tions moderate high 12/17/2021 03660 6 RxNorm F[place] [facility] 2 10:18:04 536717 codeine medicatio n rash moderate high 12/17/2021 2670 RxNorm F[place] [facility] 2 10:16:43 905863 acetamino phen / oxycodone medicatio n hallucina tions severe high 12/17/2021 02267 3 RxNorm F[place] [facility] 2 10:17:43 651147 cephalexi n medicatio n eye swelling Not available low 11/11/2022 2231 RxNorm Fina [place] [facility] 3 12:54:33 454612 Macrobid medicatio n diarrhea moderate high 01/13/2023 52470 1 RxNorm vomit ing and diarr hea [...] Available Not Available Not Available [facility] [place] 3 mL 08/22 completed Not Available Not [...] Vitals Date Recorded Body height Respiratory rate Oxygen saturation Oxygen saturation in Arterial blood by Pulse oximetry Systolic And Diastolic Provider Name and Address Organization Details Last Updated DateTime 151.13 cm 18 /min 95 % 95 % 180/95 mm[Hg] Fina Vasquez [place] - [facility] 5 11:25:30 Social History Question Answer Notes LastModified by [...] Or The Highest Degree You Have Received? [id number] Information not available 12/17/2021 Have There Been Any Changes To Your Family Or Social Situation? No Information no t available 07/14/2023 What Is The Fluoride Status Of Your Home? Unknown Information not available 07/14/2023 Have You Recently Or Are You Planning To Travel To An Area With Zika Virus? No Information not available 07/14/2023 Do You Have A Medical Power Of Environmental Programs Specialist? No Information not available 07/14/2023 What Was [...] anxious, or unable to sleep at night)? [id number] Information not available 12/20/2021 Do you have [...] Y Acid Reflux (GERD) Y Stroke Y Thyroid Problems Y Kidney or Bladder Problems Y Hypercholesterolemia Y Heart Disease Y Neuropathy [...] high-dose, quadrivalent, PF 02/21/2022 completed Dylan King, TEN PIN BOWLING CENTRE MANAGER [address], [place], [address], [place] [facility] 03/26/2022 17:30:58 Influenza, high-dose, [...] zoster live 04/20/2013 completed Fina [place] [facility] 08/22/2022 14:19:25 Influenza, high-dose, trivalent, PF 05/16/2021 completed Fina [place] [facility] 08/22/2022 14:19:25 Past Encounters Encounter ID Performer Location Encounter Start Date Encounter Closed Date Diagnosis/Indication Diagnosis SNOMED-CT Code Diagnosis ICD10 Code Diagnosis Note [id number] Dylan King APRN [address] [address] 11/19/2024 10:13:18 11/19/2024 13:47:54 Adult health examination 435544108 Z00.00 Depression screening 171 354510 Z13.31 A depression screening was completed via a standardiz ed screening tool. 5 minutes were spent discussing depression screening results and risk factors. Examinatio n of blood pressure 682709584 Z01.30 Diet education 09922514 Z71.3 Counseling 443157492 Z71 .82 Exercise counseling . Patient encouraged to exercise 30 minutes 5 days a week. At [facility] ed risk for falls 879481532 Z91.81 STEADI FAST screening score of _12____. Advance care planning 71 1027199 Z71.89 Gout 94223856 M10.9 Hypertensive disorder 38 068699 I10 Hypercholesterolemia 136 71214 E78.00 Type 2 lexx betes mellitus 92029257 E11.21 Hypothyroidism 04835930 E03.9 Neuropathy 726468681 G62 .9 Pt compliant with plan of careKasper reviewed and appropriat emedicatio n compliance discussedC ontrol substance agreement on fileuds: Hepatitis C screening declined 9165705307 5105 Z53.20 Ulcer of t oe due to type 2 diabetes mellitus 1929166552 68908 E11.621 L97.529 follow up with podiatryan deedeeb etadine soaked dressings change dressing daily Pain of le ft knee joint 5843240453 91380 M25.562 Impaired cognition 50739 6002 G31.84 Low blood pressure 62899 003 I95.9 Syncope and collapse 309 589375 R55 if episode happens go to ed [id number] Dylan King APRN [address] [address] 11/29/2024 12:36:15 11/29/2024 14:31:57 Acute urinary tract infection 450495970 N39.0 increase fluids cx Syncope and collapse 309 664704 R55 if episode happens go to ed Type 2 lexx betes mellitus 31216312 E11.21 Infection of foot due to diabetes mellitus 982615297 E11.628 L08.9 follow up with taty on ue antibiotic s- one dose left [id number] Dylan King TEN PIN BOWLING CENTRE MANAGER [address] [address] 12/09/2024 10:12:10 12/09/2024 11:19:38 Acute urinary tract infection 194338665 N39.0 advised to go to er for eval - pt declined at this timetake antibiotic as ordereddis cussed risk Neuropathy due to type 2 diabetes mellitus 7104309648 38456 E11.40 Z79.4 Health Concerns Section Related Observation LastModified by Organization Detai ls LastModified Time None Recorded Concern Status LastModified by Organization Details LastModified Time None Recorded Payers Encounter Date Sequence Insurance Name Policy Number Policy Elena Covered Member ID Elena Member ID Guarantor Name 12/09/2024 2 FOR LIFE ( - MEDICARE SUPPLEMENT) [id number] Mariano Robert [id number] Jillian Robert 12/09/2024 1 [place] Jillian Robert [id number] Jillian Robert Notes Date Note Type Note Provider Name and Address Organization Details Recorded Time 12/09/2024 text/html 74 yr old female presents for lab/cmp nurse visit. Vital signs are abnormal, patient diaphoretic, flushed and nauseated. reports an episode of blindness and hurting all over around 2 am this am, ems was called but she had improved when ems arrived, refused hospital transport. pt states having n/v and zofran not helping. want script for boston King, TEN PIN BOWLING CENTRE MANAGER [address], [place], [address], [place] [facility] 12/09/2024 13:46:39 OBGyn Episode No OBEpisode recorded.
--- OUTSIDE RECORDS SUMMARY | 2024-12-15 11:50 | XMS_ITS | Clinical Summary ---
Author Organization [facility] Address [address] [facility] [address] [place] [address] Phone Care Team Providers Care Single Ending Machine Operator Name Role Phone Roman Mercer Primary Care Provider [phone] Allergies Active Allergy Reactions Criticality Noted Date [...] sliding scale. Active flash glucose scanning reader (CadeeSTYLE SOLOMON 14 DAY READER) Misc Misc by [facility]Non-Drug; Combo Route) route. Active aspirin 81 mg [...] 11/26/2022 9:26 PM EDT Plan of Treatment Upcoming Encounters Date Type Department Care Team (Late st Contact Info) Description 12/21/2024 1:40 PM EDT Office Visit SEP Neurology [facility] [address] [place] [address] Lisa Serrano DO [address] [facility] [address] [place] [address] Health Maintenance Due Date Last Done Comments Wellness Exam Medicare 1953 Kidney Health: uACR 1960 Diabetic Eye Exam 1968 Hepatitis C Screening 1968 Pneumococcal Vaccine 50+ (1 of 2 - PCV) 1969 Cologuard 1995 Colon Cancer Screening 1995 Colonoscopy 1995 FIT 1995 Sigmoidoscopy 1995 Virtual Colonography 1995 RSV or 60+ (1 - Risk 60-74 years 1-dose series) 2010 Zoster (2 of 3) 06/15/2013 04/20/2013 DTaP/TDaP/Td (2 - Td or Tdap) 04/20/2023 04/20/2013 Hemoglobin A1c 05/28/2023 11/26/2022, 03/0 07/2022, 04/24/2020 Lipids 11/27/2023 11/26/2022 Kidney Health: eGFR 12/01/2023 11/30/2022, 11/29/2022, 11/29/2022, Additional history exists COVID-19 Vaccine ( season) 2024 04/11/2021, 08/31/2020, 08/02/2020 Breast Cancer Screening 10/14/2024 10/14/2022 Influenza Vaccine (#1) 2025 , 02/21/2022, 05/16/2021 Bone Density Screening Completed 06/18/2023, 2023 Hepatitis B Vaccine Aged Out No longe r eligible based on patient's age to complete this topic Meningococcal B Vaccine Aged Out No l onger eligible based on patient's age to complete this topic Medical Devices Implanted Type Area Spray Maker Device Identifier Shelf Expiration Date Model / Serial / Lot Bilateral Iol Lower Back Metal Cage/ 2 Rods/8 Screws Cervical Fusion Right Shoulder Screws/ Anchors Kt Graft 2.8ml Infs Sm Clara Matrx 2-Tn Bnd 5ml Strl H2o - [id number] Implanted:Qty: 1 on 08/14/2022 by Ki Lawson MD at [facility] Bilateral: Spine Lumbar [employer]:SOFAMO R DANEK 06/09/2024 [id number] / / [id number] Cage Modulus Alif [id number] 10 Degree - [id number] Implanted:Qty: 1 on 08/14/2022 by Ki Lawson MD at [facility] N/A: Spine Lumbar NUVASIVE 08/12/2026 [id number] / / [id number] [place] 3dp Interfixated Alif [id number] 2pk - [id number] Implanted:Qty: 2 on 08/14/2022 by Ki Lawson MD at [facility] N/A: Spine Lumbar NUVASIVE 04/03/2026 [id number] / / [id number] Procedures Procedure Name Priority Date/Time Associated Diagnosis Comments DX BONE DENSITY AXIAL SKELETON Routine 06/18/2023 10:06 AM EST Postmenopausal osteoporosis BASIC METABOLIC PANEL Early AM 11/30/2022 8:30 AM EDT LIPID SCREEN Routine 11/26/2022 1:59 PM EDT [...] bone density assessment. Study was performed on [employer]. Bone Density: Region BMD T-score Z-score Femoral [...] 06/19/2023 2:13:00 PM. us Ki Lawson MD IMG DEXA ORDERABLES Final Resu lt * (ABNORMAL) BASIC METABOLIC PANEL (11/30/2022 8:30 AM EDT) Sodium 137 136 - 145 mmol/L 11/30/2022 10:10 AM EDT [facility] Potassium 5.4(H) 3.5 - 5.0 mmol/L 11/30/2022 10:10 AM EDT [facility] Comment:Hemolysis detected b y analyzer. Hemolysis at this level may increase the potassium concentration > 0.1 mmol/L. Recommend recollection if clinically indicated. Chloride 97(L) 98 - 107 mmol/L 11/30/2022 10:10 AM EDT [facility] Total CO2 30(H) 22 - 29 mmol/L 11/30/2022 10:10 AM EDT [facility] Anion Gap 10 7 - 16 mmol/L 11/30/2022 10:10 AM EDT [facility] Calcium 9.3 8.8 - 10.4 mg/dL 11/30/2022 10:10 AM EDT [facility] Glucose Lvl 181(H) 82 - 100 mg/dL 11/30/2022 10:10 AM EDT [facility] BUN 45(H) 8 - 23 mg/dL 11/30/2022 10:10 AM EDT [facility] Creatinine 1.80(H) 0.51 - 1.30 mg/dL 11/30/2022 10:10 AM EDT [facility] eGFR (CKD-EPIcr 2020) 29(L) >=60 mL/min/1. 73 m2 11/30/2022 10:10 AM EDT [facility] Comment:Estimated GFR was ca lculated using the CKD-EPIcr (2020) equation refit without race. The equation is recommended by the National Kidney Foundation - [place] Society of Nephrology Task Force. Blood VENOUS BLOOD / Unknown Venipuncture / Unknown 11/30/2022 8:30 AM EDT 11/30/2022 9:16 AM EDT Fern Hallman MD CHEMISTRY ORDERABLES Final Result Performing Organization Address [facility] de Phone Number [facility] [address] , [place] [address] [facility] [address] [place] [address] * (ABNORMAL) HEMOGLOBIN A1C (11/26/2022 1:59 PM EDT) Pathologist [facility] Hgb A1C 9.7(H) 4.2 - 5.6 % 11/26/2022 3:06 PM EDT [facility] CORP80 Est. Avg Glucose 232 mg/dL 11/26/2022 3:06 PM EDT [facility] Blood VENOUS BLOOD / Unknown Venipuncture / Unknown 11/26/2022 1:59 PM EDT 11/26/2022 2:05 PM EDT Narrative [facility] - 11/26/2022 3:06 PM EDT REFERENCE RANGE: Normal: 4.0-5.6% Pre-diabetes: 5.7-6.4% Provisional diagnosis of diabetes: >6.4% Hgb F>10% and anything which shortens red cell survival, such as hemolytic anemia, or unstable hemoglobin variants such as HbSS, HbSC, or HbCC, will lower the HbA1c value associated with a given level of glycemic control. Lisa Serrano DO CHEMISTRY ORDERABLES Fi nal Result Performing Organization Address [facility] Co de Phone Number [facility] [address] , [place] [address] * (ABNORMAL) LIPID SCREEN (11/26/2022 1:59 PM EDT) [facility] Cholesterol 143 <200 mg/dL 11/26/2022 3:14 PM EDT [facility] Comment: < 200 Desirable 200 - 239 Borderline High >= 240 High Triglyceride 383(H) <150 mg/dL 11/26/2022 3:14 PM EDT [facility] Comment: < 150 Normal 150 - 199 Borderline High 200 - 499 High >= 500 Very High HDL 29(L) >=40 mg/dL 11/26/2022 3:14 PM EDT [facility] Comment: > 60 Optimal 40 - 60 Acceptable < 40 Low LDL Calculated 56 <100 mg/dL 11/26/2022 3:14 PM EDT [facility] Comment: < 100 Optimal 100 - 129 Near or above optimal 130 - 159 Borderline High 160 - 189 High >= 190 Very High Non-HDL-C Calculated 114 <=129 mg/dL 11/26/2022 3:14 PM EDT [facility] Comment: <130 Desirable 130-159 Above Desirable 160-189 Borderline High 190-219 High >= 220 Very High Fasting Specimen? No None 023 3:14 PM EDT [facility] Blood VENOUS BLOOD / Unknown Venipuncture / Unknown 11/26/2022 1:59 PM EDT 11/26/2022 2:05 PM EDT Lisa Srerano DO CHEMISTRY ORDERABLES Fi nal Result [facility] [address] [facility], [place] [address] [place] [address] [facility] [address] [place] [address] from Last 3 Months or Most Recently Relevant to Health Maintenance Insurance MEDICARE [place] PART A AND B FOR LIFE FOR LIFE MEDICARE [place] PART A AND B Advance Directives For more information, please contact: [phone] * Full Code (Latest Code Status on File) Date Activated Date Inactivated Comments 11/25/2022 8:31 PM 11/30/2022 5:15 PM * Full Code Date Activated Date Inactivated Comments 08/14/2022 3:40 PM 08/15/2022 8:17 PM Care Teams Single Ending Machine Operator Relationship Specialty Start Date End Date Roman Mercer [address] [place] [address] PCP - General Family Medicine 04/24/20
--- OUTSIDE RECORDS SUMMARY | 2024-12-15 11:50 | XMS_ITS | Continuity of Care Document ---
Author Organization [place] [facility] [place] [facility] [place] [facility] [place] Address [address] [facility] [place] [address] Assessment No assessment recorded. Plan of Treatment [...] mg/mL suspensio n for injection [address], [address], 12/06/2024 07:31:38 bupivacai ne HCl 0.5 % (5 mg/mL) injection solution [address], [address], 12/06/2024 07:31:38 Patient TargetsNo targets recorded. Patient InstructionsNo instructions [...] active Not Available Not Available Not Available levofloxacin 250 mg tablet TAKE ONE TABLET BY MOUTH ONCE DAILY FOR 5 DAYS -- FINISH ALL MEDICINE -- active Not Available Not Available No t Available allopurinol 100 mg tablet active Not [...] Influenza, high-dose, quadrivalent, PF 02/21/2022 completed Diann Urbina null, [place] [facility] [place] 05/10/2024 13:41:40 Influenza, high-dose, quadrivalent, PF 04/25/2023 completed Diann [place] [facility] [place] 05/10/2024 13:41:40 COVID-19, mRNA, LNP-S, PF, 100 mcg/0.5mL dose or 50 mcg/0.25mL dose 08/02/2020 completed Diann Urb[place] null[place] [facility] & [place] 05/10/2024 13:41:40 COVID-19, mRNA, LNP-S, PF, 100 mcg/0.5mL dose or 50 mcg/0.25mL dose 08/31/2020 completed Diann Sweeney-Pitakis null[place] [facility] [place] [facility] [place] 05/10/2024 13:41:40 COVID-19, mRNA, LNP-S, PF, 100 mcg/0.5mL dose or 50 mcg/0.25mL dose 04/11/2021 completed Diann Sweeney-Pitakis [place] [facility] [place] [facility] [place] 05/10/2024 13:41:41 Tdap 04/20/2013 completed Diann Sweeney-Pitakis [place] [facility] [place] [facility] [place] 05/10/2024 13:41:41 zoster live 04/20/2013 completed Diann Sweeney-Pitakis [place] [facility] [place] [facility] [place] 05/10/2024 13:41:41 Influenza, high-dose, trivalent, PF 02/24/2024 completed Mercedez Yen null[place] [facility] [place] [facility] [place] 09/01/2024 10:16:21 Influenza, high-dose, trivalent, PF 05/16/2021 completed Diann Sweeney-Pitakis [place] [facility] [place] [facility] [place] 05/10/2024 13:41:41 Past Encounters Encounter ID Performer Location Encounter Start Date Encounter Closed Date Diagnosis/Indication Diagnosis SNOMED-CT Code Diagnosis ICD10 Code Diagnosis Note [id number] DO AAKASH REYES [address] [address] 12/03/2024 09:59:37 12/03/2024 11:17:13 Bursitis of right hip 055519463 M06.251 Health Concerns Section Related Observation LastModified by Organization Detai ls LastModified Time None Recorded Concern Status LastModified by Organization Details LastModified Time None Recorded Payers Encounter Date Sequence Insurance Name Policy Number Policy Elena Covered Member ID Elena Member ID Guarantor Name 12/03/2024 1 [place] ([place] Jillian Robert [id number] Jillian Robert 12/03/2024 2 FOR LIFE () Jillian Robert [id number] Jillian Robert Notes Date Note Type Note Provider Name and Address Organization Details Recorded Time 12/03/2024 text/html 3.26.25 right hip bursa injection- helped almost 3 [id number] LASHELL TEJADA [address] [place] [address],[address], [place], [address], [place] [facility] [place] [facility] [place] 12/06/2024 12:27:27 OBGyn Episode No OBEpisode recorded.
--- OUTSIDE RECORDS SUMMARY | 2024-12-15 11:50 | XMS_ITS | Continuity of Care Document ---
Author Organization [facility] Address [address] [place] [address] Care Team Providers Care Monomer Recovery Operator Name Role Phone DYLAN KING Primary Care Provider MAKENZIE Dahl Adult Educator STEPH BLAS Barbering Instructor DENIS RAMIREZ Assembler Tractor Assessment Encounter Date Assessment Date Assessment LastModified [...] magnesium , serum or plasma 2024 025 [place] [facility], [address], [place], [place], [address], 12/03/2024 17:07:32 urinalysi s, dipstick 2024 025 [facility], [address] [place] [address], [place], [address], 11/29/2024 15:53:01 culture, urine 2024 025 [facility], [address], [place], [place], [address], 12/03/2024 17:07:32 C-peptide , serum 2024 025 [facility], [address], [place], [place], [address], 12/03/2024 17:07:[address] referral - possible seizures 2024 025 [facility] [address] [place] [address], [address], 11/30/2024 08:56:09 Procedures None recorded. Surgeries None recorded. Imaging None recorded. Medication Orders levofloxa idalia 250 mg tablet 2024 025 [facility], [address] [place] [address], [address], 12/11/2024 05:01:53 Patient TargetsNo targets recorded. Patient InstructionsNo instructions recorded. Reason for Referral Neurologist Referral for Syn cope and collapse possible seizures Referring Physician: Dylan King, Family Medicine, Encounter Date: 11/29/2024 Results Created Date Observation Date Name Description Value Unit Range Abnormal Flag Note LastModifiedBy Organization Detail LastModifiedTime 11/30/1911/29/2024 urina lysis , dipst ick Color Dark Yellow Not Available [address], [address], 11/29/2024 13:29:00 11/30/19 25 11/29/2024 urina lysis , dipst ick Appearance Clear Not Available [address], [address], 11/29/2024 13:29:00 11/30/19 25 11/29/2024 urina lysis , dipst ick Glucose Negati ve Not Available [address], [address], 11/29/2024 13:29:00 11/30/19 25 11/29/2024 urina lysis , dipst ick Bilirubin Negati ve Not Available [address], [address], 11/29/2024 13:29:00 11/30/19 25 11/29/2024 urina lysis , dipst ick Ketone Negati ve Not Available [address], [address], 11/29/2024 13:29:00 11/30/19 25 11/29/2024 urina lysis , dipst ick Specific [place] 1.030 Not Available [address], [address], 11/29/2024 13:29:00 11/30/19 25 11/29/2024 urina lysis , dipst ick Blood Negati ve Not Available [address], [address], 11/29/2024 13:29:00 11/30/19 25 11/29/2024 urina lysis , dipst ick pH 5.5 Not Available [address], [address], 11/29/2024 13:29:00 11/30/19 25 11/29/2024 urina lysis , dipst ick Protein 300 Not Available [address], [address], 11/29/2024 13:29:00 11/30/19 25 11/29/2024 urina lysis , dipst ick Urobilinogen .2 Not Available Saad [address], [address], 11/29/2024 13:29:00 11/30/19 25 11/29/2024 urina lysis , dipst ick Nitrite positi ve Not Available [address], [address], 11/29/2024 13:29:00 11/30/19 25 11/29/2024 urina lysis , dipst ick Leukocytes Trace Not Available [address], [address], 11/29/2024 13:29:00 11/20/19 25 11/19/2024 elect rocar diogr am No observ ation record ed. [email or web address] [address], [address], 11/19/2024 16:58:35 11/20/19 25 11/19/2024 elect rocar diogr am No observ ation record ed. [place] [address], [place], [address], 11/22/2024 09:08:29 11/23/19 25 11/19/2024 elect rocar diogr am No observ ation record ed. [email or web address] [address], [address], 11/23/2024 16:34:11 11/23/19 25 11/22/2024 XR, foot, 3 or more view No observ ation record ed. [email or web address] [facility] [address], [place], [address], 11/23/2024 18:15:43 11/30/19 25 11/19/2024 cardi ac monit or No observ ation record ed. [facility] [address], [place], [address], 11/30/2024 10:43:31 Result Notes None recorded. Problems Name Problem SNOMED Code Status Onset Date Resolution Date Notes Provider Name and Address Organization Details Recorded Time Type 2 diabetes mellitus 37445357 Active 2021 Dylan King, WAFER FABRICATION OPERATOR [address], [place], [address] , [place] - [facility] 2 10:07:29 Hypertensive disorder 48933314 Active 2021 Dylan King, WAFER FABRICATION OPERATOR [address], [place], [address] , [place] [facility] 2 10:07:09 Hypercholeste rolemia 83449211 Active 2021 Dylan King, WAFER FABRICATION OPERATOR [address], [place], [address] , [place] [facility] 2 10:07:05 Gastroesophag eal reflux disease 352606884 Active 2021 Dylan King, WAFER FABRICATION OPERATOR [address], [place], [address] , [place] [facility] 2 10:06:49 Hypothyroidis m 04377774 Active 2021 Dylan Ramireslaceytiffany, WAFER FABRICATION OPERATOR [address], [place], [address] , [place] [facility] 2 10:07:12 Neuropathy 770465657 Active 2021 Dylan King, WAFER FABRICATION OPERATOR [address], [place], [address] , [place] [facility] 2 10:07:19 Arthritis 0093656 Active 2021 Dylan King, WAFER FABRICATION OPERATOR [address], [place], [address] , [place] [facility] 2 10:06:47 Coronary arteriosclero sis 07657516 Active 2021 Tonejakenando Ramirescarito, WAFER FABRICATION OPERATOR [address], [place], [address] , [place] [facility] 10:18:21 Coronary artery bypass grafts x 3 Active 2021 Dylan King, WAFER FABRICATION OPERATOR [address], [place], [address] , [place] - [facility] 10:18:34 Chronic kidney disease stage 3B 181892923 Active Fina perales [place] - [facility] 11:42:05 Problem Notes None recorded. Procedures Surgical History Date Name Laterality Status Provider Name and Address Organization Details Recorded Time 025 Medication Reconcilliation completed Fina Vasquez [facility] 11/29/2024 13:05:51 025 Advance Care Planning completed Fina Vasquez [facility] 11/19/2024 10:41:02 025 IV Infusion completed Fina Vasquez [facility] 11/19/2024 15:44:19 025 Functional Status Assessed completed Finaradha Vasquez [facility] 11/19/2024 10:41:02 024 Date of Last Colonoscopy completed Dia Youssef [facility] 2024 13:27:50 024 Medication Reconcilliation completed Fina Vasquez [facility] 12/02/2023 10:36:18 023 In and Out Catheterization completed Margarita Banks, WAFER FABRICATION OPERATOR [address], [place], [address], [place] - [facility] 02/13/2023 14:34:26 023 Medication Reconcilliation completed Fina Vasquez [facility] 01/31/2023 10:55:15 023 Medication Reconcilliation completed Fina Vasquez [facility] 01/06/2023 10:21:27 023 Medication Reconcilliation completed Fina Vasquez [facility] 12/12/2022 10:55:58 023 Medication Reconcilliation completed Fina Vasquez [facility] 11/25/2022 14:44:11 023 Date of Last Mammogram completed Dia Calis [facility] 10/17/2022 13:02:19 023 Most Recent [...] Name and Address Organization Details Recorded Time 777945 lisinopri l medicatio n rash Not available high 12/17/2021 46568 RxNorm Fina Vasquez null, [place] - [facility] 2 10:17:08 222168 Oxycontin medicatio n hallucina tions moderate high 12/17/2021 50022 6 RxNorm Fina Vasquez [place] - [facility] 2 10:18:04 220649 codeine medicatio n rash moderate high 12/17/2021 2670 RxNorm Fina Vasquez [place] - [facility] 2 10:16:43 373462 acetamino phen / oxycodone medicatio n hallucina tions severe high 12/17/2021 25487 3 RxNorm Fina Vasquez [place] - [facility] 2 10:17:43 937379 cephalexi n medicatio n eye swelling Not available low 11/11/2022 2231 RxNorm Fina Vasquez [place], [place] - [facility] 3 12:54:33 287565 Macrobid medicatio n diarrhea moderate high 01/13/2023 75343 1 RxNorm vomit ing and diarr hea Fina Vasquez null, [place] - [facility] 10:16:12 Medications Name Sig Start Date Stop [...] Not Available Not Available Not Available [facility] [place] 3 mL 08/22 completed Not Available Not [...] blood by Pulse oximetry Respiratory rate Systolic And Diastolic Provider Name and Address Organization Details Last Updated DateTime 5 151.13 cm 27.6 kg/m2 61652.3 4 g 98 [degF] 87 /min 95 % 95 % 18 /min 118/64 mm[Hg] Fina Vasquez [place] - [facility] 5 [...] Or The Highest Degree You Have Received? CE47566-2 Information not available 12/17/2021 Have There Been Any Changes To Your Family Or Social Situation? No Information no t available 07/14/2023 What Is The Fluoride Status Of Your Home? Unknown Information not available 07/14/2023 Have You Recently Or Are You Planning To Travel To An Area With Zika Virus? No Information not available 07/14/2023 Do You Have A Medical Power Of Labor Relations Specialist? No Information not available 07/14/2023 What [...] anxious, or unable to sleep at night)? [id number] Information not available 12/20/2021 Do you have [...] Y Hypercholesterolemia Y Acid Reflux (GERD) Y Neuropathy Y Heart Disease Y Stroke Y Kidney or Bladder Problems Y Thyroid Problems Y Hypertension Y Gynecological History Statement/Question [...] high-dose, quadrivalent, PF 02/21/2022 completed Dylan King, WAFER FABRICATION OPERATOR [address], [place], [address], [place] - [facility] 03/26/2022 17:30:58 Influenza, high-dose, quadrivalent, PF 04/25/2023 completed Fina Vasquez null, [place] - [facility] 04/25/2023 13:24:26 Influenza, high-dose, trivalent, PF 02/24/2024 completed Fina Vas[place] [facility] 03/11/2024 17:52:11 COVID-19, mRNA, LNP-S, PF, 100 mcg/0.5mL dose or 50 mcg/0.25mL dose 08/02/2020 completed Fina Vas[place] [facility] 08/22/2022 14:19:25 COVID-19, mRNA, LNP-S, PF, 100 mcg/0.5mL dose or 50 mcg/0.25mL dose 08/31/2020 completed Fina Vas[place] [facility] 08/22/2022 14:19:25 COVID-19, mRNA, LNP-S, PF, 100 mcg/0.5mL dose or 50 mcg/0.25mL dose 04/11/2021 completed Fina [place] [facility] 08/22/2022 14:19:25 Tdap 04/20/2013 completed Fina [place] [facility] 08/22/2022 14:19:25 zoster live 04/20/2013 completed Fina [place] [facility] 08/22/2022 14:19:25 Influenza, high-dose, trivalent, PF 05/16/2021 completed Fina Vasquez [place] [place] - [facility] 08/22/2022 14:19:25 Past Encounters Encounter ID Performer Location Encounter Start Date Encounter Closed Date Diagnosis/Indication Diagnosis SNOMED-CT Code Diagnosis ICD10 Code Diagnosis Note [id number] Dylan King APRN [address] [address] 11/19/2024 10:13:18 11/19/2024 13:47:54 Adult health examination 300168393 Z00.00 Depression screening 171 802336 Z13.31 A depression screening was completed via a standardiz ed screening tool. 5 minutes were spent discussing depression screening results and risk factors. Examinatio n of blood pressure 965087419 Z01.30 Diet education 47649182 Z71.3 Counseling 507872220 Z71 .82 Exercise counseling . Patient encouraged to exercise 30 minutes 5 days a week. At [facility] ed risk for falls 544928449 Z91.81 STEADI FAST screening score of _12____. Advance care planning 71 3545339 Z71.89 Gout 40353588 M10.9 Hypertensive disorder 38 282505 I10 Hypercholesterolemia 136 95015 E78.00 Type 2 lexx betes mellitus 77045457 E11.21 Hypothyroidism 62361722 E03.9 Neuropathy 966163702 G62 .9 Pt compliant with plan of careKasper reviewed and appropriat emedicatio n compliance discussedC ontrol substance agreement on fileuds: Hepatitis C screening declined 4867432443 5105 Z53.20 Ulcer of t oe due to type 2 diabetes mellitus 9129212495 30872 E11.621 L97.529 follow up with podiatryan tibioticsb etadine soaked dressings change dressing daily Pain of le ft knee joint 8584983917 20355 M25.562 Impaired cognition 38706 6002 G31.84 Low blood pressure 36363 003 I95.9 Syncope and collapse 309 281386 R55 if episode happens go to ed [id number] Dylan King APRN [address] [address] 11/29/2024 12:36:15 11/29/2024 14:31:57 Acute urinary tract infection 758529657 N39.0 increase fluids cx Syncope and collapse 309 091367 R55 if episode happens go to ed Type 2 lexx betes mellitus 69859810 E11.21 Infection of foot due to diabetes mellitus 867316256 E11.628 L08.9 follow up with taty on ue antibiotic s- one dose left Health Concerns Section Related Observation LastModified by Organization Detai ls LastModified Time None Recorded Concern Status LastModified by Organization Details LastModified Time None Recorded Payers Encounter Date Sequence Insurance Name Policy Number Policy Elena Covered Member ID Elena Member ID Guarantor Name 11/29/2024 2 FOR LIFE ( - MEDICARE SUPPLEMENT) [id number] Mariano Yesica [id number] Jillian Robert 11/29/2024 1 [place] Jillian Nogueira Yesica [id number] Jillian Robert Notes Date Note Type Note Provider Name and Address Organization Details Recorded Time 11/29/2024 text/html Emergency Depart ment Follow-Up RecordReported bypatient.Discharge InformationName of hospital/urgent care patient was seen: ([facility] Patient presented to hospital/urgent care on or [...] months but more noticeable lately. Dylan King, WAFER FABRICATION OPERATOR [address], [place], [address], [place] - [facility] 11/29/2024 14:13:11 OBGyn Episode No OBEpisode recorded.
--- OUTSIDE RECORDS SUMMARY | 2024-12-15 11:50 | XMS_ITS | Data Portability ---
Author Organization [facility] Address [address] [place] [address] Assessment No assessment recorded. Plan of Treatment [...] mg/mL suspensio n for injection 2024 025 [place] [address] [facility] - [address], [address], 12/06/2024 07:31:38 bupivacai ne HCl 0.5 % (5 mg/mL) injection solution [address] - [address], [address], 12/06/2024 07:31:38 Kenalog 10 mg/mL suspensio n for injection 2024 025 [place] [address] [facility] - [address], [address], 09/01/2024 10:31:05 bupivacai ne HCl 0.5 % (5 mg/mL) injection solution [address] [facility] - [address], [address], 09/01/2024 10:31:05 Kenalog 10 mg/mL suspensio n for injection [address] - [address], [address], 05/10/2024 13:53:03 bupivacai ne HCl 0.5 % (5 mg/mL) injection solution [address] - [address], [address], 05/10/2024 13:53:03 Kenalog 10 mg/mL suspensio n for injection [address], [address], 03/09/2024 16:28:55 bupivacai ne HCl 0.5 % (5 mg/mL) injection solution [address], [address], 03/09/2024 16:28:55 Patient TargetsNo targets recorded. Patient [...] completed Diann Urb[place] null, [place] - [facility] [place] 05/10/2024 13:41:40 Influenza, high-dose, quadrivalent, PF 04/25/2023 completed Diann [place] [facility] [place] 05/10/2024 13:41:40 COVID-19, mRNA, LNP-S, PF, 100 mcg/0.5mL dose or 50 mcg/0.25mL dose 08/02/2020 completed Diann Urb[place] null[place] [facility] [place] 05/10/2024 13:41:40 COVID-19, mRNA, LNP-S, PF, 100 mcg/0.5mL dose or 50 mcg/0.25mL dose 08/31/2020 completed Diann [place]rb[place] [facility] [place] 05/10/2024 13:41:40 COVID-19, mRNA, LNP-S, PF, 100 mcg/0.5mL dose or 50 mcg/0.25mL dose 04/11/2021 completed Diann Sweeney-Pitakis null, [place] [facility] [place] [facility] [place] 05/10/2024 13:41:41 Tdap 04/20/2013 completed Diann Sweeney-Pitakis [place] [facility] [place] [facility] [place] 05/10/2024 13:41:41 zoster live 04/20/2013 completed Diann Sweeney-Pitakis [place] [facility] [place] [facility] [place] 05/10/2024 13:41:41 Influenza, high-dose, trivalent, PF 02/24/2024 completed Mercedez Yen null[place] [facility] [place] [facility] [place] 09/01/2024 10:16:21 Influenza, high-dose, trivalent, PF 05/16/2021 completed Diann Sweeney-Pitakis [place] [facility] [place] [facility] [place] 05/10/2024 13:41:41 Past Encounters Encounter ID Performer Location Encounter Start Date Encounter Closed Date Diagnosis/Indication Diagnosis SNOMED-CT Code Diagnosis ICD10 Code Diagnosis Note [id number] DO AAKASH REYES [place] [address] 03/09/2024 13:25:41 03/09/2024 14:26:14 Bursitis of right hip 120111475 M06.320 [id number] DO AAKASH REYES [address] [address] 05/10/2024 13:14:55 05/10/2024 13:48:55 Bursitis of right hip 440418661 M06.770 [id number] DO AAKASH REYES [address] [address] 09/01/2024 10:05:42 09/01/2024 10:22:08 Bursitis of right hip 247362327 M06.284 [id number] DO AAKASH REYES [address] [address] 12/03/2024 09:59:37 12/03/2024 11:17:13 Bursitis of right hip 835118042 M06.251 Health Concerns Section Related Observation LastModified by Organization Detai ls LastModified Time None Recorded Concern Status LastModified by Organization Details LastModified Time None Recorded Advance Directives Directive None Recorded Payers Insurance Date Sequence Insurance Name Policy Number Policy Elena Covered Member ID Elena Member ID Guarantor Name 12/06/2024 2 FOR LIFE () Jillian Robert [id number] Jillian Robert 11/30/2024 1 [place] Jillian Robert [id number] Jillian Robert Notes Date Note Type Note Provider Name and Address Organization Details Recorded Time 03/09/2024 text/html Pt presents toda y with right hip pain DOO: 1 year. No injury. Pt was seeing Dr. Lawson at [facility] and was told that she has Bursitis, he then referred her to the clinic. Pt had her last hip injection on 03.11.2023. Injections no longer seem to be helping. Pt takes aspirin and ibuprofen for pain. Pt has been using a walker since pain in hip started. Hx of: L5-S1 fusion on 08.14.2022. Right hip X-rays taken @ [facility] in [place] on 07.23.2023.[id number] LASHELL TEJADA [address], [place], [address], [place] - [facility] [place] 03/10/2024 07:38:07 05/10/2024 text/html 73 y/o female here today for follow up RIGHT bursa hip joint was injected 03.09.24. Helped up until 2 weeks ago, at least 75% but pain isn't as bad right now prior to getting injection. Ambulating with rollator walker. Taking Ibu PRN. E6AP LASHELL TEJADA [address], [place], [address], [place] [facility] [place] 05/10/2024 13:50:09 09/01/2024 text/html Pt is here wanting another rt hip bursa inj. She reports the inj has been effective for 3 months-[id number] LASHELL TEJADA, DO [address], [place], [address], [place] [facility] [place] [facility] [place] 09/01/2024 13:19:42 12/03/2024 text/html 3.26.25 right hi p bursa injection- helped almost 3 [email or web address] LASHELL TEJADA, DO [address], [place], [address], [place] [facility] [place] [facility] [place] 12/06/2024 12:27:27 OBGyn Episode No OBEpisode recorded.
--- OUTSIDE RECORDS SUMMARY | 2024-12-15 11:50 | XMS_ITS | Clinical Summary ---
Author Organization [facility] Address [address] [id number] Care Team Providers Care Metal Buggy Operator Name Role Phone Roman King CONSULTING PRACTICE DIRECTOR Primary Care Provider [phone] Allergies Active Allergy Reactions Criticality Noted Date [...] Disposable Pump (Omnipod DASH Pods, Gen 4,) [facility] Active Insulin Disposable Pump (Omnipod DASH Pods, Gen 4,) [facility] Omnipod Dash Pods (Gen 4) subcutaneous [...] Immunizations Immunization Administration Dates Next Due Influenza, High-dose, Split Virus, Trivalent, Injectable, preservative free 02/24/2024,05/16/2021 Influenza, high-dose, quadrivalent 04/25/2023,,05/16/2021 Moderna COVID-19 Vaccine [...] Description 12/17/2024 12:00 PM EDT Office Visit [facility] [address] [place] [address] Isabel Womack, CONSULTING PRACTICE DIRECTOR [address] [facility] [address] [place] [address] Health Maintenance Due Date Last [...] (2 - Td or Tdap) 04/20/2023 04/20/2013 [id number] Vaccine (4 - 2023- season) 2024 04/11/2021, 08/31/2020, 08/02/2020 [facility]-Bone Density Scan 06/18/2024 06/18/2023, 024 [facility]-Influenza Vaccine (#1) 02/07/202502/23, 04/25/2023, 02/21/2022, Additional history exists [facility]-Obesity Intervention [...] age to complete this topic Insurance MEDICARE [facility] Care Teams Metal Buggy Operator Relationship Specialty Start Date End Date Roman King APRN [address] [place] [id number] PCP - General 01/21/22
--- OUTSIDE RECORDS SUMMARY | 2024-12-15 11:51 | XMS_ITS | Data Portability ---
Author Organization [facility] Address [address] [place] [address] Care Team Providers Care Advisory Services Associate Name Role Phone DYLAN LEBRON Primary Care Provider MAKENZIE Dahl Visual C Developer [phone] STEPH BLAS Developer Analyst DENIS RAMIREZ Riverboat Captain Assessment Encounter Date Assessment Date Assessment LastModified [...] hospitalizations. -Further treatment per orders listed below. [email or web address] Not available 11/29/2024 13:05:51 Plan of Treatment Reminders Order Date Submit Date Provider Last Modified By Organization Details Last Modified Time Details Appointments Follow Up 20 2024 01:00P Rosales Banks APRN Not available Not available Not available Lab CBC w/ auto diff 2024 025 R[facility]IA [facility], [address], [address], [place], [address], 12/10/2024 04:06:40 magnesium , serum or plasma 2024 025 RABIA [facility], [address], [address], [place], [address], 12/03/2024 17:07:32 urinalysi s, dipstick 2024 025 [facility], [address] [place], [address], 11/29/2024 15:53:01 culture, urine 2024 025 RABIA [facility], [address], [address], [place], [address], 12/03/2024 17:07:32 C-peptide , serum 2024 025 RABIA [facility], [address], [address], [place], [address], 12/03/2024 17:07:30 HbA1c (hemoglob in A1c), blood 2024 025 RABIA [facility], [address], [address], [place], [address], 12/03/2024 17:07:31 C reactive protein, QN, serum or plasma 2024 025 RABIA [facility], [address], [address], [place], [address], 12/03/2024 17:07:33 erythrocy te sedimenta tion rate by madison n method 2024 025 RABIA [facility], [address], [address], [place], [address], 12/03/2024 17:07:31 CMP, serum or plasma 2024 025 RABIA [facility], [address], [address], [place], [address], 12/03/2024 17:07:29 CBC w/ auto diff 2024 025 RABIA [facility], [address], [address], [place], [address], 12/03/2024 17:07:28 lipid panel, serum 2024 025 RABIA [facility], [address], [address], [place], [address], 12/03/2024 17:07:30 glucose, fingersti ck, blood 2024 025 [facility], [address] [place] [address], [phone], 11/19/2024 16:25:32 glucose, fingersti ck, blood 2024 025 [facility], [address] [place] [address], [phone], 11/19/2024 16:25:32 TSH + free T4, serum 2024 025 RABIA [facility], [address], [address], [place], [address], 12/03/2024 17:07:28 urinalysi s, dipstick 2024 025 [facility], [address] [facility], [place], [address], 10/08/2024 14:10:34 infectiou s disease panel 2024 025 RABIA [facility], [address], [place], [address], 10/11/2024 07:49:41 vaginal pathogens panel, ERNESTINA+probe , vaginal fluid 2024 025 RABIA [facility], [address], [address], [place], [address], 09/30/2024 01:06:56 urinalysi s, dipstick 2024 025 [facility], [address] [place], [address], 09/27/2024 14:06:26 culture, urine 2024 025 RABIA [facility], [address], [place], [address], 09/30/2024 01:06:[address] referral - possible seizures 2024 [facility]25 [facility], [address] [place] [address], [address], 11/30/2024 08:56:09 podiatris t referral 2024 025 RABIA [facility], [address] [place], [address], 12/02/2024 12:48:[address] referral - [facility] 2024 025 [facility], [address], [place], [address], 11/22/2024 09:30:46 Procedures None recorded. Surgeries None recorded. Imaging XR, foot, 3 or more view 2024 [facility] (X-[facility]), [address] [place] [address] E, [place], [address], 11/22/2024 12:11:05 electroca rdiogram 2024 [facility], [address] [place] [address], [phone], 11/19/2024 16:58:29 Medication Orders levofloxa idalia 250 mg tablet 2024 [facility], [address] [place] [address], [address], 12/11/2024 05:01:53 allopurin ol 100 mg tablet 2024 [facility], [address] [place] [address], [address], 11/19/2024 12:07:23 doxycycli ne hyclate 100 mg tablet 2024 [facility], [address] [place] [address], [id number], 12/06/2024 05:02:48 Normal Saline Flush 0.9 % injection syringe 2024 [facility], [address] [place] [address], [address], 11/29/2024 13:06:21 sodium chloride 0.9 % intraveno us solution 2024 [facility], [address] [place] [address], [address], 11/29/2024 13:18:14 estradiol 0.01% (0.1 mg/gram) vaginal cream 2024 025 RABIA [facility], [address], [place], [address], 10/08/2024 14:10:36 methenami ne hippurate 1 gram tablet 2024 025 RABIA [facility], [address] [place], [address], 10/08/2024 14:11:40 Patient TargetsNo targets recorded. Patient Instructions Encounter Date Encounter Id Patient Instructions Last Modified By Organization Details Last Modified Time 10/08/2024 [id number] high blood pressure: care instructions Not available [...] care instructions Not available 10/08/2024 14:10:34 11/19/2024 [id number] advance directives: care instructions [email or web address] Not available 11/19/2024 12:07:23 learning about depression efryman Not available 11/19/2024 12:07:23 preventing falls : care instructions efryman Not available 11/19/2024 12:07:23 medicare preventive services guide efryman Not available 11/19/2024 12:07:23 Reason for Referral Oxidation Operator Referral for Ulce r of toe due to type 2 diabetes mellitus Referring Physician: Dylan Lebron, Family Medicine, Encounter Date: 11/19/2024 Neurologist Referral for Imp aired cognition memory clinic Referring Physician: Dylan Lebron [facility] Medicine, Encounter Date: 11/19/2024 Neurologist Referral for Syn cope and collapse possible seizures Referring Physician: Dylan Lebron [facility], Encounter Date: 11/29/2024 Results Created Date Observation Date Name Description Value Unit Range Abnormal Flag Note LastModifiedBy Organization Detail LastModifiedTime 09/03/1909/02/2024 drug scree n, urine THC negati ve Not Available [address], [address], 09/02/2024 14:36:30 09/03/19 25 09/02/2024 drug scree n, urine TCA negati ve Not Available [address], [address], 09/02/2024 14:36:30 09/03/19 25 09/02/2024 drug scree n, urine BAR negati ve Not Available [address], [address], 09/02/2024 14:36:30 09/03/19 25 09/02/2024 drug scree n, urine BZO negati ve Not Available [address], [address], 09/02/2024 14:36:30 09/03/19 25 09/02/2024 drug scree n, urine MTD negati ve Not Available [address], [address], 09/02/2024 14:36:30 09/03/19 25 09/02/2024 drug scree n, urine AMP negati ve Not Available [address], [address], 09/02/2024 14:36:30 09/03/19 25 09/02/2024 drug scree n, urine MOP negati ve Not Available [address], [address], 09/02/2024 14:36:30 09/03/19 25 09/02/2024 drug scree n, urine OXY negati ve Not Available [address], [address], 09/02/2024 14:36:30 09/03/19 25 09/02/2024 drug scree n, urine MDMA negati ve Not Available [address], [address], 09/02/2024 14:36:30 09/03/19 25 09/02/2024 drug scree n, urine BULMARO negati ve Not Available [address], [address], 09/02/2024 14:36:30 09/03/19 25 09/02/2024 drug scree n, urine PCP negati ve Not Available [address], [address], 09/02/2024 14:36:30 09/03/19 25 09/02/2024 drug scree n, urine MET negati ve Not Available [address], [address], 09/02/2024 14:36:30 09/11/19 25 09/11/2024 UTI ID PANEL COMPL ETE, PCR garry albicans Not Detect ed not detect ed normal Not Available [facility] [address], [place], [address], 09/11/2024 15:16:33 09/11/19 25 09/11/2024 UTI ID PANEL COMPL ETE, PCR garry glabrata Not Detect ed not detect ed normal Not Available [facility] [address], [place], [address], 09/11/2024 15:16:33 09/11/19 25 09/11/2024 UTI ID PANEL COMPL ETE, PCR garry krusei Not Detect ed not detect ed normal Not Available [facility] [address], [place], [address], 09/11/2024 15:16:33 09/11/19 25 09/11/2024 UTI ID PANEL COMPL ETE, PCR garry lusitaniae Not Detect ed not detect ed normal Not Available [facility] [address], [place], [address], 09/11/2024 15:16:33 09/11/19 25 09/11/2024 UTI ID PANEL COMPL ETE, PCR garry parapsilosis Not Detect ed not detect ed normal Not Available [facility] [address], [place], [address], 09/11/2024 15:16:33 09/11/19 25 09/11/2024 UTI ID PANEL COMPL ETE, PCR garry tropicalis Not Detect ed not detect ed normal Not Available [facility] [address], [place], [address], 09/11/2024 15:16:33 09/11/19 25 09/11/2024 UTI ID PANEL COMPL ETE, PCR enterobacter cloacae Not Detect ed not detect ed normal Not Available [facility] [address], [place], [address], 09/11/2024 15:16:33 09/11/19 25 09/11/2024 UTI ID PANEL COMPL ETE, PCR enterococcus faecalis Not Detect ed not detect ed normal Not Available [facility] [address], [place], [address], 09/11/2024 15:16:33 09/11/19 25 09/11/2024 UTI ID PANEL COMPL ETE, PCR escherichia coli Not Detect ed not detect ed normal Not Available [facility] [address], [place], [address], 09/11/2024 15:16:33 09/11/19 25 09/11/2024 UTI ID PANEL COMPL ETE, PCR klebsiella oxytoca Not Detect ed not detect ed normal Not Available [facility] [address], [place], [address], 09/11/2024 15:16:33 09/11/19 25 09/11/2024 UTI ID PANEL COMPL ETE, PCR klebsiella pneumoniae Not Detect ed not detect ed normal Not Available [facility] [address], [place], [address], 09/11/2024 15:16:33 09/11/19 25 09/11/2024 UTI ID PANEL COMPL ETE, PCR morganella morganii Not Detect ed not detect ed normal Not Available [facility] [address], [place], [address], 09/11/2024 15:16:33 09/11/19 25 09/11/2024 UTI ID PANEL COMPL ETE, PCR mycoplasma hominis Not Detect ed not detect ed normal Not Available [facility] [address], [place], [address], 09/11/2024 15:16:33 09/11/19 25 09/11/2024 UTI ID PANEL COMPL ETE, PCR proteus mirabilis Not Detect ed not detect ed normal Not Available [facility] [address], [place], [address], 09/11/2024 15:16:33 09/11/19 25 09/11/2024 UTI ID PANEL COMPL ETE, PCR providencia stuartii Not Detect ed not detect ed normal Not Available [facility] [address], [place], [address], 09/11/2024 15:16:33 09/11/19 25 09/11/2024 UTI ID PANEL COMPL ETE, PCR pseudomonas aeruginosa Not Detect ed not detect ed normal Not Available [facility] [address], [place], [address], 09/11/2024 15:16:33 09/11/19 25 09/11/2024 UTI ID PANEL COMPL ETE, PCR serratia marcescens Not Detect ed not detect ed normal Not Available [facility] [address], [place], [address], 09/11/2024 15:16:33 09/11/19 25 09/11/2024 UTI ID PANEL COMPL ETE, PCR staphylococc us aureus - wound & urine Not Detect ed not detect ed normal Not Available [facility] [address], [place], [address], 09/11/2024 15:16:33 09/11/19 25 09/11/2024 UTI ID PANEL COMPL ETE, PCR staphylococc us saprophyticu s Not Detect ed not detect ed normal Not Available [facility] [address], [place], [address], 09/11/2024 15:16:33 09/11/19 25 09/11/2024 UTI ID PANEL COMPL ETE, PCR streptococcu s agalactiae Not Detect ed not detect ed normal Not Available [facility] [address], [place], [address], 09/11/2024 15:16:33 09/11/19 25 09/11/2024 UTI ID PANEL COMPL ETE, PCR ureaplasma urealyticum Not Detect ed not detect ed normal Not Available [facility] [address], [place], [address], 09/11/2024 15:16:33 09/28/19 25 09/28/2024 NUSWA B VAGIN ITIS PLUS (VG+) atopobium vaginae LOW - 0 score Not Available [facility] ([facility]) [address] [facility], [place], [address], 09/30/2024 01:06:56 09/28/19 25 09/28/2024 NUSWA B VAGIN ITIS PLUS (VG+) bvab 2 LOW - 0 score Not Available [facility] ([facility]) [address] [facility], [place], [address], 09/30/2024 01:06:56 09/28/19 25 09/28/2024 NUSWA B [...] nce of BV. Not Available [facility] ([facility]) [address], [place], [address], 09/30/2024 01:06:56 09/28/19 25 09/28/2024 NUA B VAGIN ITIS PLUS (VG+) garry albicans, ERNESTINA NEGATI VE negati ve Not Available [facility] ([facility]) [address] [facility], [place], [address], 09/30/2024 01:06:56 09/28/19 25 09/28/2024 NUSWA B VAGIN ITIS PLUS (VG+) garry glabrata, ERNESTINA NEGATI VE negati ve Not Available [facility] ([facility]) [address] [place], [address], 09/30/2024 01:06:56 09/28/19 25 09/29/2024 NUSWA B VAGIN ITIS PLUS (VG+) trich vag by ERNESTINA NEGATI VE negati ve Not Available [facility] ([facility]) [address] [facility], [place], [address], 09/30/2024 01:06:56 09/28/19 25 09/29/2024 NUSWA B VAGIN ITIS PLUS (VG+) chlamydia trachomatis, ERNESTINA NEGATI VE negati ve Not Available [facility] ([facility]) [address] [facility], [place], [address], 09/30/2024 01:06:56 09/28/19 25 09/29/2024 NUA B VAGIN ITIS PLUS (VG+) neisseria gonorrhoeae, ERNESTINA NEGATI VE negati ve Not Available [facility] ([facility]) [address] [facility], [place], [address], 09/30/2024 01:06:56 09/28/19 25 09/30/2024 URINE CULTU RE, ROUTI NE urine culture, routine FINAL REPORT abnormal Not Available [facility] ([facility]) [address] [facility], [place], [address], 09/30/2024 01:06:56 09/28/19 25 09/30/2024 URINE CULTU [...] Enter ococc us. Not Available [facility] ([facility]) [address] [facility], [place], [address], 09/30/2024 01:06:56 09/28/19 25 09/30/2024 URINE CULTU [...] Vanco mycin S Not Available [facility] ([facility]) [address] [facility], [place], [address], 09/30/2024 01:06:56 09/28/19 25 09/27/2024 urina lysis , dipst ick Leukocytes Small Not Available [address], [address], 09/27/2024 11:53:59 09/28/19 25 09/27/2024 urina lysis , dipst ick Nitrite negati ve Not Available [address], [address], 09/27/2024 11:53:59 09/28/19 25 09/27/2024 urina lysis , dipst ick Urobilinogen .2 Not Available [facility] [address], [address], 09/27/2024 11:53:59 09/28/19 25 09/27/2024 urina lysis , dipst ick Protein 300 Not Available [address], [address], 09/27/2024 11:53:59 09/28/19 25 09/27/2024 urina lysis , dipst ick pH 5.5 Not Available [address], [address], 09/27/2024 11:53:59 09/28/19 25 09/27/2024 urina lysis , dipst ick Blood Non-He molyze d: Trace Not Available [address], [address], 09/27/2024 11:53:59 09/28/19 25 09/27/2024 urina lysis , dipst ick Specific [place] 1.030 Not Available [address], [address], 09/27/2024 11:53:59 09/28/19 25 09/27/2024 urina lysis , dipst ick Ketone Negati ve Not Available [address], [address], 09/27/2024 11:53:59 09/28/19 25 09/27/2024 urina lysis , dipst ick Bilirubin Negati ve Not Available [address], [address], 09/27/2024 11:53:59 09/28/19 25 09/27/2024 urina lysis , dipst ick Glucose Negati ve Not Available [address], [address], 09/27/2024 11:53:59 09/28/19 25 09/27/2024 urina lysis , dipst ick Appearance Clear Not Available [address], [address], 09/27/2024 11:53:59 09/28/19 25 09/27/2024 urina lysis , dipst ick Color Yellow Not Available [address], [address], 09/27/2024 11:53:59 10/09/19 25 10/08/2024 MICRO SENSI TIVIT Y abnormal status abnormal Not Available [facility] [address], [place], [address], 10/11/2024 07:49:43 10/09/19 25 10/08/2024 MICRO SENSI TIVIT Y abnormal status high Not Available [facility] [address], [place], [address], 10/11/2024 07:49:43 10/09/19 25 10/08/2024 MICRO SENSI TIVIT Y abnormal status resistant Not Available [facility] [address], [place], [address], 10/11/2024 07:49:43 10/09/19 25 10/08/2024 MICRO SENSI TIVIT Y abnormal status susceptib le Not Available [facility] [address], [place], [address], 10/11/2024 07:49:43 10/09/19 25 10/08/2024 MICRO SENSI TIVIT Y ampicillin 16 R resistant Not Available [facility] [address], [place], [address], 10/11/2024 07:49:42 10/09/19 25 10/08/2024 MICRO SENSI TIVIT Y amikacin <=8 S susceptib le Not Available [facility] [address], [place], [address], 10/11/2024 07:49:42 10/09/19 25 10/08/2024 MICRO SENSI TIVIT Y aztreonam <=2 S susceptib le Not Available [facility] [address], [place], [address], 10/11/2024 07:49:42 10/09/19 25 10/08/2024 MICRO SENSI TIVIT Y ceftazidime <=2 S susceptib le Not Available [facility] [address], [place], [address], 10/11/2024 07:49:42 10/09/19 25 10/08/2024 MICRO SENSI TIVIT Y ciprofloxaci n <=0.25 S susceptib le Not Available [facility] [address], [place], [address], 10/11/2024 07:49:42 10/09/19 25 10/08/2024 MICRO SENSI TIVIT Y ceftriaxone <=1 S susceptib le Not Available [facility] [address], [place], [address], 10/11/2024 07:49:42 10/09/19 25 10/08/2024 MICRO SENSI TIVIT Y cefepime <=1 S susceptib le Not Available [facility] [address], [place], [address], 10/11/2024 07:49:42 10/09/19 25 10/08/2024 MICRO SENSI TIVIT Y nitrofuranto in 32 S susceptib le Not Available [facility] [address], [place], [address], 10/11/2024 07:49:42 10/09/19 25 10/08/2024 MICRO SENSI TIVIT Y gentamicin <=2 S susceptib le Not Available [facility] [address], [place], [address], 10/11/2024 07:49:42 10/09/19 25 10/08/2024 MICRO SENSI TIVIT Y levofloxacin <=0.5 S susceptib le Not Available [facility] [address], [place], [address], 10/11/2024 07:49:42 10/09/19 25 10/08/2024 MICRO SENSI TIVIT Y meropenem <=0.5 S susceptib le Not Available [facility] [address], [place], [address], 10/11/2024 07:49:42 10/09/19 25 10/08/2024 MICRO SENSI TIVIT Y tobramycin <=2 S susceptib le Not Available [facility] [address], [place], [address], 10/11/2024 07:49:42 10/09/19 25 10/08/2024 MICRO SENSI TIVIT Y ampicillin/s ulbactam 8/4 S susceptib le Not Available [facility] [address], [place], [address], 10/11/2024 07:49:42 10/09/19 25 10/08/2024 MICRO SENSI TIVIT Y trimethoprim /sulfamethox azole <=0.5/ 9.5 S susceptib le Not Available [facility] [address], [place], [address], 10/11/2024 07:49:42 10/09/19 25 10/08/2024 MICRO SENSI TIVIT Y tetracycline <=2 S susceptib le Not Available [facility] [address], [place], [address], 10/11/2024 07:49:42 10/09/19 25 10/08/2024 MICRO SENSI TIVIT Y piperacillin /tazobactam 4/4 S susceptib le Not Available [facility] [address], [place], [address], 10/11/2024 07:49:42 10/09/19 25 10/08/2024 MICRO SENSI TIVIT Y ertapenem <=0.25 S susceptib le Not Available [facility] [address], [place], [address], 10/11/2024 07:49:42 10/09/19 25 10/08/2024 MICRO SENSI TIVIT Y organism Kleb. pneumo . ssp pneu. Not Available [facility] [address], [place], [address], 10/11/2024 07:49:42 10/09/19 25 10/08/2024 RESIS TANCE MARKE RS ampc resistance marker Not Detect ed normal Not Available [facility] [address], [place], [address], 10/11/2024 07:49:42 10/09/19 25 10/08/2024 RESIS TANCE MARKE RS carbapenem resistance markers Not Detect ed normal Not Available [facility] [address], [place], [address], 10/11/2024 07:49:42 10/09/19 25 10/08/2024 RESIS TANCE MARKE RS esbl resistance markers Detect ed abnormal Not Available [facility] [address], [place], [address], 10/11/2024 07:49:42 10/09/19 25 10/08/2024 RESIS TANCE MARKE RS quinolone resistance markers Not Detect ed normal Not Available [facility] [address], [place], [address], 10/11/2024 07:49:42 10/09/19 25 10/09/2024 UTI ID PANEL COMPL ETE, PCR garry albicans Not Detect ed not detect ed normal Not Available [facility] [address], [place], [address], 10/11/2024 07:49:41 10/09/19 25 10/09/2024 UTI ID PANEL COMPL ETE, PCR garry glabrata Not Detect ed not detect ed normal Not Available [facility] [address], [place], [address], 10/11/2024 07:49:41 10/09/19 25 10/09/2024 UTI ID PANEL COMPL ETE, PCR garry krusei Not Detect ed not detect ed normal Not Available [facility] [address], [place], [address], 10/11/2024 07:49:41 10/09/1910/09/2024 UTI ID PANEL COMPL ETE, PCR garry lusitaniae Not Detect ed not detect ed normal Not Available [facility] [address], [place], [address], 10/11/2024 07:49:41 10/09/1910/09/2024 UTI ID PANEL COMPL ETE, PCR garry parapsilosis Not Detect ed not detect ed normal Not Available [facility] [address], [place], [address], 10/11/2024 07:49:41 10/09/19 25 10/09/2024 UTI ID PANEL COMPL ETE, PCR garry tropicalis Not Detect ed not detect ed normal Not Available [facility] [address], [place], [address], 10/11/2024 07:49:41 10/09/1910/09/2024 UTI ID PANEL COMPL ETE, PCR enterobacter cloacae Not Detect ed not detect ed normal Not Available [facility] [address], [place], [address], 10/11/2024 07:49:41 10/09/1910/09/2024 UTI ID PANEL COMPL ETE, PCR enterococcus faecalis Not Detect ed not detect ed normal Not Available [facility] [address], [place], [address], 10/11/2024 07:49:41 10/09/19 25 10/09/2024 UTI ID PANEL COMPL ETE, PCR escherichia coli Not Detect ed not detect ed normal Not Available [facility] [address], [place], [address], 10/11/2024 07:49:41 10/09/19 25 10/09/2024 UTI ID PANEL COMPL ETE, PCR klebsiella oxytoca Not Detect ed not detect ed normal Not Available [facility] [address], [place], [address], 10/11/2024 07:49:41 10/09/19 25 10/09/2024 UTI ID PANEL COMPL ETE, PCR klebsiella pneumoniae High not detect ed high Not Available [facility] [address], [place], [address], 10/11/2024 07:49:41 10/09/19 25 10/09/2024 UTI ID PANEL COMPL ETE, PCR morganella morganii Not Detect ed not detect ed normal Not Available [facility] [address], [place], [address], 10/11/2024 07:49:41 10/09/19 25 10/09/2024 UTI ID PANEL COMPL ETE, PCR mycoplasma hominis Not Detect ed not detect ed normal Not Available [facility] [address], [place], [address], 10/11/2024 07:49:41 10/09/19 25 10/09/2024 UTI ID PANEL COMPL ETE, PCR proteus mirabilis Not Detect ed not detect ed normal Not Available [facility] [address], [place], [address], 10/11/2024 07:49:41 10/09/19 25 10/09/2024 UTI ID PANEL COMPL ETE, PCR providencia stuartii Not Detect ed not detect ed normal Not Available [facility] [address], [place], [address], 10/11/2024 07:49:41 10/09/19 25 10/09/2024 UTI ID PANEL COMPL ETE, PCR pseudomonas aeruginosa Not Detect ed not detect ed normal Not Available [facility] [address], [place], [address], 10/11/2024 07:49:41 10/09/19 25 10/09/2024 UTI ID PANEL COMPL ETE, PCR serratia marcescens Not Detect ed not detect ed normal Not Available [facility] [address], [place], [address], 10/11/2024 07:49:41 10/09/1910/09/2024 UTI ID PANEL COMPL ETE, PCR staphylococc us aureus - wound & urine Not Detect ed not detect ed normal Not Available [facility] [address], [place], [address], 10/11/2024 07:49:41 10/09/19 25 10/09/2024 UTI ID PANEL COMPL ETE, PCR staphylococc us saprophyticu s Not Detect ed not detect ed normal Not Available [facility] [address], [place], [address], 10/11/2024 07:49:41 10/09/19 25 10/09/2024 UTI ID PANEL COMPL ETE, PCR streptococcu s agalactiae Not Detect ed not detect ed normal Not Available [facility] [address], [place], [address], 10/11/2024 07:49:41 10/09/19 25 10/09/2024 UTI ID PANEL COMPL ETE, PCR ureaplasma urealyticum Not Detect ed not detect ed normal Not Available [facility] [address], [place], [address], 10/11/2024 07:49:41 10/09/19 25 10/10/2024 UTI ID PANEL COMPL ETE, PCR growth 24 Growth abnormal @24 Hours Gram Negat paul Growt h, Not Available [facility] [address], [place], [address], 10/11/2024 07:49:41 10/09/19 25 10/08/2024 urina lysis , dipst ick Leukocytes Trace Not Available [facility] [address] [place], [address], 10/04/2024 09:39:08 10/09/19 25 10/08/2024 urina lysis , dipst ick Nitrite negati ve Not Available [facility] [address] [place], [address], 10/04/2024 09:39:08 10/09/19 25 10/08/2024 urina lysis , dipst ick Urobilinogen .2 Not Available [facility] [address] [place], [address], 10/04/2024 09:39:08 10/09/19 25 10/08/2024 urina lysis , dipst ick Protein 100 Not Available [facility] [address] [place], [address], 10/04/2024 09:39:08 10/09/19 25 10/08/2024 urina lysis , dipst ick pH 5.5 Not Available [facility] [address] [place], [address], 10/04/2024 09:39:08 10/09/19 25 10/08/2024 urina lysis , dipst ick Blood Negati ve Not Available [facility] [address] [place], [address], 10/04/2024 09:39:08 10/09/19 25 10/08/2024 urina lysis , dipst ick Specific [place] 1.030 Not Available [facility] [address] [place], [address], 10/04/2024 09:39:08 10/09/19 25 10/08/2024 urina lysis , dipst ick Ketone Negati ve Not Available [facility] [address] [place], [address], 10/04/2024 09:39:08 10/09/19 25 10/08/2024 urina lysis , dipst ick Bilirubin Negati ve Not Available [facility] [address] [place], [address], 10/04/2024 09:39:08 10/09/19 25 10/08/2024 urina lysis , dipst ick Glucose Negati ve Not Available [facility] [address] [place], [address], 10/04/2024 09:39:08 10/09/19 25 10/08/2024 urina lysis , dipst ick Appearance Clear Not Available [facility] [address] [place], [address], 10/04/2024 09:39:08 10/09/19 25 10/08/2024 urina lysis , dipst ick Color Yellow Not Available [facility] [address] [place], [address], 10/04/2024 09:39:08 10/23/19 25 10/22/2024 MICRO SENSI TIVIT Y abnormal status abnormal Not Available [facility] [address], [place], [address], 10/25/2024 08:35:54 10/23/19 25 10/22/2024 MICRO SENSI TIVIT Y abnormal status high Not Available [facility] [address], [place], [address], 10/25/2024 08:35:54 10/23/19 25 10/22/2024 MICRO SENSI TIVIT Y abnormal status intermedi ate Not Available [facility] [address], [place], [address], 10/25/2024 08:35:54 10/23/19 25 10/22/2024 MICRO SENSI TIVIT Y abnormal status resistant Not Available [facility] [address], [place], [address], 10/25/2024 08:35:54 10/23/19 25 10/22/2024 MICRO SENSI TIVIT Y abnormal status susceptib le Not Available [facility] [address], [place], [address], 10/25/2024 08:35:54 10/23/19 25 10/22/2024 MICRO SENSI TIVIT Y ampicillin >16 R resistant Not Available [facility] [address], [place], [address], 10/25/2024 08:35:53 10/23/19 25 10/22/2024 MICRO SENSI TIVIT Y amikacin <=8 S susceptib le Not Available [facility] [address], [place], [address], 10/25/2024 08:35:53 10/23/19 25 10/22/2024 MICRO SENSI TIVIT Y aztreonam 16 R resistant Not Available [facility] [address], [place], [address], 10/25/2024 08:35:53 10/23/19 25 10/22/2024 MICRO SENSI TIVIT Y ceftazidime 8 intermedi ate Not Available [facility] [address], [place], [address], 10/25/2024 08:35:53 10/23/19 25 10/22/2024 MICRO SENSI TIVIT Y ciprofloxaci n <=0.25 S susceptib le Not Available [facility] [address], [place], [address], 10/25/2024 08:35:53 10/23/19 25 10/22/2024 MICRO SENSI TIVIT Y ceftriaxone 32 R resistant Not Available [facility] [address], [place], [address], 10/25/2024 08:35:53 10/23/19 25 10/22/2024 MICRO SENSI TIVIT Y cefepime 4 intermedi ate Not Available [facility] [address], [place], [address], 10/25/2024 08:35:53 10/23/19 25 10/22/2024 MICRO SENSI TIVIT Y nitrofuranto in <=16 S susceptib le Not Available [facility] [address], [place], [address], 10/25/2024 08:35:53 10/23/19 25 10/22/2024 MICRO SENSI TIVIT Y gentamicin <=2 S susceptib le Not Available [facility] [address], [place], [address], 10/25/2024 08:35:53 10/23/1910/22/2024 MICRO SENSI TIVIT Y levofloxacin <=0.5 S susceptib le Not Available [facility] [address], [place], [address], 10/25/2024 08:35:53 10/23/19 25 10/22/2024 MICRO SENSI TIVIT Y meropenem <=0.5 S susceptib le Not Available [facility] [address], [place], [address], 10/25/2024 08:35:53 10/23/19 25 10/22/2024 MICRO SENSI TIVIT Y tobramycin <=2 S susceptib le Not Available [facility] [address], [place], [address], 10/25/2024 08:35:53 10/23/19 25 10/22/2024 MICRO SENSI TIVIT Y ampicillin/s ulbactam 4/2 S susceptib le Not Available [facility] [address], [place], [address], 10/25/2024 08:35:53 10/23/19 25 10/22/2024 MICRO SENSI TIVIT Y trimethoprim /sulfamethox azole <=0.5/ 9.5 S susceptib le Not Available [facility] [address], [place], [address], 10/25/2024 08:35:53 10/23/19 25 10/22/2024 MICRO SENSI TIVIT Y tetracycline <=2 S susceptib le Not Available [facility] [address], [place], [address], 10/25/2024 08:35:53 10/23/19 25 10/22/2024 MICRO SENSI TIVIT Y piperacillin /tazobactam 4/4 S susceptib le Not Available [facility] [address], [place], [address], 10/25/2024 08:35:53 10/23/19 25 10/22/2024 MICRO SENSI TIVIT Y ertapenem <=0.25 S susceptib le Not Available [facility] [address], [place], [address], 10/25/2024 08:35:53 10/23/19 25 10/22/2024 MICRO SENSI TIVIT Y organism Kleb. pneumo . ssp pneu. Not Available [facility] [address], [place], [address], 10/25/2024 08:35:53 10/23/19 25 10/22/2024 CODY HERCULES ampc resistance marker Not Detect ed normal Not Available [facility] [address], [place], [address], 10/25/2024 08:35:53 10/23/19 25 10/22/2024 RESIS SVETLANA MCWILLIAMS RS carbapenem resistance markers Not Detect ed normal Not Available [facility] [address], [place], [address], 10/25/2024 08:35:53 10/23/19 25 10/22/2024 RESIS SVETLANA MCWILLIAMS RS esbl resistance markers Detect ed abnormal Not Available [facility] [address], [place], [address], 10/25/2024 08:35:53 10/23/19 25 10/22/2024 RESIS SVETLANA MCWILLIAMS RS quinolone resistance markers Not Detect ed normal Not Available [facility] [address], [place], [address], 10/25/2024 08:35:53 10/23/19 25 10/23/2024 UTI ID PANEL COMPL ETE, PCR garry albicans Not Detect ed not detect ed normal Not Available [facility] [address], [place], [address], 10/25/2024 08:35:52 10/23/19 25 10/23/2024 UTI ID PANEL COMPL ETE, PCR garry glabrata Not Detect ed not detect ed normal Not Available [facility] [address], [place], [address], 10/25/2024 08:35:52 10/23/19 25 10/23/2024 UTI ID PANEL COMPL ETE, PCR garry krusei Not Detect ed not detect ed normal Not Available [facility] [address], [place], [address], 10/25/2024 08:35:52 10/23/19 25 10/23/2024 UTI ID PANEL COMPL ETE, PCR garry lusitaniae Not Detect ed not detect ed normal Not Available [facility] [address], [place], [address], 10/25/2024 08:35:52 10/23/19 25 10/23/2024 UTI ID PANEL COMPL ETE, PCR garry parapsilosis Not Detect ed not detect ed normal Not Available [facility] [address], [place], [address], 10/25/2024 08:35:52 10/23/19 25 10/23/2024 UTI ID PANEL COMPL ETE, PCR garry tropicalis Not Detect ed not detect ed normal Not Available [facility] [address], [place], [address], 10/25/2024 08:35:52 10/23/19 25 10/23/2024 UTI ID PANEL COMPL ETE, PCR enterobacter cloacae Not Detect ed not detect ed normal Not Available [facility] [address], [place], [address], 10/25/2024 08:35:52 10/23/19 25 10/23/2024 UTI ID PANEL COMPL ETE, PCR enterococcus faecalis Not Detect ed not detect ed normal Not Available [facility] [address], [place], [address], 10/25/2024 08:35:52 10/23/19 25 10/23/2024 UTI ID PANEL COMPL ETE, PCR escherichia coli Not Detect ed not detect ed normal Not Available [facility] [address], [place], [address], 10/25/2024 08:35:52 10/23/19 25 10/23/2024 UTI ID PANEL COMPL ETE, PCR klebsiella oxytoca Not Detect ed not detect ed normal Not Available [facility] [address], [place], [address], 10/25/2024 08:35:52 10/23/19 25 10/23/2024 UTI ID PANEL COMPL ETE, PCR klebsiella pneumoniae High not detect ed high Not Available [facility] [address], [place], [address], 10/25/2024 08:35:52 10/23/19 25 10/23/2024 UTI ID PANEL COMPL ETE, PCR morganella morganii Not Detect ed not detect ed normal Not Available [facility] [address], [place], [address], 10/25/2024 08:35:52 10/23/19 25 10/23/2024 UTI ID PANEL COMPL ETE, PCR mycoplasma hominis Not Detect ed not detect ed normal Not Available [facility] [address], [place], [address], 10/25/2024 08:35:52 10/23/19 25 10/23/2024 UTI ID PANEL COMPL ETE, PCR proteus mirabilis Not Detect ed not detect ed normal Not Available [facility] [address], [place], [address], 10/25/2024 08:35:52 10/23/19 25 10/23/2024 UTI ID PANEL COMPL ETE, PCR providencia stuartii Not Detect ed not detect ed normal Not Available [facility] [address], [place], [address], 10/25/2024 08:35:52 10/23/19 25 10/23/2024 UTI ID PANEL COMPL ETE, PCR pseudomonas aeruginosa Not Detect ed not detect ed normal Not Available [facility] [address], [place], [address], 10/25/2024 08:35:52 10/23/19 25 10/23/2024 UTI ID PANEL COMPL ETE, PCR serratia marcescens Not Detect ed not detect ed normal Not Available [facility] [address], [place], [address], 10/25/2024 08:35:52 10/23/19 25 10/23/2024 UTI ID PANEL COMPL ETE, PCR staphylococc us aureus - wound & urine Not Detect ed not detect ed normal Not Available [facility] [address], [place], [address], 10/25/2024 08:35:52 10/23/19 25 10/23/2024 UTI ID PANEL COMPL ETE, PCR staphylococc us saprophyticu s Not Detect ed not detect ed normal Not Available [facility] [address], [place], [address], 10/25/2024 08:35:52 10/23/19 25 10/23/2024 UTI ID PANEL COMPL ETE, PCR streptococcu s agalactiae Not Detect ed not detect ed normal Not Available [facility] [address], [place], [address], 10/25/2024 08:35:52 10/23/19 25 10/23/2024 UTI ID PANEL COMPL ETE, PCR ureaplasma urealyticum Not Detect ed not detect ed normal Not Available [facility] [address], [place], [address], 10/25/2024 08:35:52 10/23/19 25 10/24/2024 UTI ID PANEL COMPL ETE, PCR growth 24 Growth abnormal @24 Hours Gram Negat paul Growt h, Not Available [facility] [address], [place], [address], 10/25/2024 08:35:52 11/20/19 25 11/19/2024 gluco katya austin rslisa k, blood Blood Glucose: mg/dl 118 Not Available [address], [address], 11/19/2024 15:35:59 11/20/19 25 11/19/2024 gluco katya austin rstic k, blood Reference Range (60-100) abnorm al Not Available [address], [address], 11/19/2024 15:35:59 11/20/19 25 11/19/2024 gluco se, finge rstic k, blood Blood Glucose: mg/dl 150 Not Available [address], [address], 11/19/2024 15:35:37 11/20/19 25 11/19/2024 gluco se, finge rstic k, blood Reference Range (60-100) abnorm al Not Available [address], [address], 11/19/2024 15:35:37 11/30/19 25 11/30/2024 TSH+F REE T4 TSH 1.330 uIU/m L 0.450- 4.500 normal Not Available [facility] ([facility]) [address] [place], [address], 12/03/2024 17:07:28 11/30/19 25 11/30/2024 TSH+F REE T4 T4,free(dire ct) 1.27 NG/dL 0.82-1 .77 normal Not Available [facility] ([facility]) [address] [place], [address], 12/03/2024 17:07:28 11/30/19 25 11/30/2024 CBC WITH DIFFE RENTI AL/PL ATELE T WBC 10.8 x10e3 /uL 3.4-10 .8 normal Not Available [facility] ([facility]) [address] [place], [address], 12/03/2024 17:07:28 11/30/19 25 11/30/2024 CBC WITH DIFFE RENTI AL/PL ATELE T RBC 4.65 x10e6 /uL 3.77-5 .28 normal Not Available [facility] ([facility]) [address] [place], [address], 12/03/2024 17:07:28 11/30/19 25 11/30/2024 CBC WITH DIFFE RENTI AL/PL ATELE T hemoglobin 13.7 g/dL 11.1-1 5.9 normal Not Available [facility] ([facility]) [address] [place], [address], 12/03/2024 17:07:28 11/30/19 25 11/30/2024 CBC WITH DIFFE RENTI AL/PL ATELE T hematocrit 43.0 % 34.0-4 6.6 normal Not Available [facility] ([facility]) [address] [place], [address], 12/03/2024 17:07:28 11/30/19 25 11/30/2024 CBC WITH DIFFE RENTI AL/PL ATELE T MCV 93 fL 79-97 normal Not Available [facility] ([facility]) [address] [place], [address], 12/03/2024 17:07:28 11/30/19 25 11/30/2024 CBC WITH DIFFE RENTI AL/PL ATELE T MCH 29.5 pg 26.6-3 3.0 normal Not Available [facility] ([facility]) [address] [place], [address], 12/03/2024 17:07:28 11/30/19 25 11/30/2024 CBC WITH DIFFE RENTI AL/PL ATELE T MCHC 31.9 g/dL 31.5-3 5.7 normal Not Available [facility] ([facility]) [address] [place], [address], 12/03/2024 17:07:28 11/30/19 25 11/30/2024 CBC WITH DIFFE RENTI AL/PL ATELE T RDW 16.6 % 11.7-1 5.4 above high normal Not Available [facility] ([facility]) [address] [place], [address], 12/03/2024 17:07:28 11/30/19 25 11/30/2024 CBC WITH DIFFE RENTI AL/PL ATELE T platelets 259 x10e3 /uL 150-45 0 normal Not Available [facility] ([facility]) [address] [facility], [place], [address], 12/03/2024 17:07:28 11/30/19 25 11/30/2024 CBC WITH DIFFE RENTI AL/PL ATELE T neutrophils 56 % not estab. normal Not Available [facility] ([facility]) [address] [facility], [place], [address], 12/03/2024 17:07:28 11/30/19 25 11/30/2024 CBC WITH DIFFE RENTI AL/PL ATELE T lymphs 32 % not estab. normal Not Available [facility] ([facility]) [address] [facility], [place], [address], 12/03/2024 17:07:28 11/30/19 25 11/30/2024 CBC WITH DIFFE RENTI AL/PL ATELE T monocytes 7 % not estab. normal Not Available [facility] ([facility]) [address] [place], [address], 12/03/2024 17:07:28 11/30/19 25 11/30/2024 CBC WITH DIFFE RENTI AL/PL ATELE T eos 3 % not estab. normal Not Available [facility] ([facility]) [address] [facility], [place], [address], 12/03/2024 17:07:28 11/30/19 25 11/30/2024 CBC WITH DIFFE RENTI AL/PL ATELE T basos 1 % not estab. normal Not Available [facility] ([facility]) [address] [facility], [place], [address], 12/03/2024 17:07:28 11/30/19 25 11/30/2024 CBC WITH DIFFE RENTI AL/PL ATELE T immature cells TUMOR REGISTRAR Not Available [facility] ([facility]) [address] [facility], [place], [address], 12/03/2024 17:07:28 11/30/1911/30/2024 CBC WITH DIFFE RENTI AL/PL ATELE T neutrophils (absolute) 6.1 x10e3 /uL 1.4-7. 0 normal Not Available [facility] ([facility]) [address] [place], [address], 12/03/2024 17:07:28 11/30/19 25 11/30/2024 CBC WITH DIFFE RENTI AL/PL ATELE T lymphs (absolute) 3.4 x10e3 /uL 0.7-3. 1 above high normal Not Available [facility] ([facility]) [address] [facility], [place], [address], 12/03/2024 17:07:28 11/30/19 25 11/30/2024 CBC WITH DIFFE RENTI AL/PL ATELE T monocytes(ab solute) 0.8 x10e3 /uL 0.1-0. 9 normal Not Available [facility] ([facility]) [address] [place], [address], 12/03/2024 17:07:28 11/30/19 25 11/30/2024 CBC WITH DIFFE RENTI AL/PL ATELE T eos (absolute) 0.3 x10e3 /uL 0.0-0. 4 normal Not Available [facility] ([facility]) [address] [place], [address], 12/03/2024 17:07:28 11/30/19 25 11/30/2024 CBC WITH DIFFE RENTI AL/PL ATELE T baso (absolute) 0.1 x10e3 /uL 0.0-0. 2 normal Not Available [facility] ([facility]) [address] [place], [address], 12/03/2024 17:07:28 11/30/19 25 11/30/2024 CBC WITH DIFFE RENTI AL/PL ATELE T immature granulocytes 1 % not estab. Not Available [facility] ([facility]) [address] [facility], [place], [address], 12/03/2024 17:07:28 11/30/19 25 11/30/2024 CBC WITH DIFFE RENTI AL/PL ATELE T immature grans (abs) 0.1 x10e3 /uL 0.0-0. 1 Not Available [facility] ([facility]) [address] [facility], [place], [address], 12/03/2024 17:07:28 11/30/19 25 11/30/2024 CBC WITH DIFFE RENTI AL/PL ATELE T NRBC TUMOR REGISTRAR Not Available [facility] ([facility]) [address] [facility], [place], [address], 12/03/2024 17:07:28 11/30/19 25 11/30/2024 CBC WITH DIFFE RENTI AL/PL ATELE T hematology comments: TUMOR REGISTRAR Not Available [facility] ([facility]) [address] [facility], [place], [address], 12/03/2024 17:07:28 11/30/19 25 11/30/2024 COMP. METAB OLIC PANEL (14) glucose 120 mg/dL 70-99 above high normal Not Available [facility] ([facility]) [address] [place], [address], 12/03/2024 17:07:29 11/30/19 25 11/30/2024 COMP. METAB OLIC PANEL (14) BUN 42 mg/dL 8-27 above high normal Not Available [facility] ([facility]) [address] [place], [address], 12/03/2024 17:07:29 11/30/19 25 11/30/2024 COMP. METAB OLIC PANEL (14) creatinine 1.85 mg/dL 0.57-1 .00 above high normal Not Available [facility] ([facility]) [address] [place], [address], 12/03/2024 17:07:29 11/30/19 25 11/30/2024 COMP. METAB OLIC PANEL (14) eGFR 28 mL/mi n/1.7 3 >59 below low normal Not Available [facility] ([facility]) [address] [place], [address], 12/03/2024 17:07:29 11/30/19 25 11/30/2024 COMP. METAB OLIC PANEL (14) BUN/creatini ne ratio 23 12-28 normal Not Available [facility] ([facility]) [address] [place], [address], 12/03/2024 17:07:29 11/30/19 25 11/30/2024 COMP. METAB OLIC PANEL (14) sodium 138 mmol/ L 134-14 4 normal Not Available [facility] ([facility]) [address] [place], [address], 12/03/2024 17:07:29 11/30/19 25 11/30/2024 COMP. METAB OLIC PANEL (14) potassium 4.5 mmol/ L 3.5-5. 2 normal Not Available [facility] ([facility]) [address] [place], [address], 12/03/2024 17:07:29 11/30/19 25 11/30/2024 COMP. METAB OLIC PANEL (14) chloride 100 mmol/ L 96-106 normal Not Available [facility] ([facility]) [address] [facility] [place], [address], 12/03/2024 17:07:29 11/30/19 25 11/30/2024 COMP. METAB OLIC PANEL (14) carbon dioxide, total 23 mmol/ L 20-29 normal Not Available [facility] ([facility]) [address] [facility] [place], [address], 12/03/2024 17:07:29 11/30/19 25 11/30/2024 COMP. METAB OLIC PANEL (14) calcium 9.0 mg/dL 8.7-10 .3 normal Not Available [facility] ([facility]) [address] [place], [address], 12/03/2024 17:07:29 11/30/19 25 11/30/2024 COMP. METAB OLIC PANEL (14) protein, total 6.5 g/dL 6.0-8. 5 normal Not Available [facility] ([facility]) [address] [place], [address], 12/03/2024 17:07:29 11/30/19 25 11/30/2024 COMP. METAB OLIC PANEL (14) albumin 4.0 g/dL 3.8-4. 8 normal Not Available [facility] ([facility]) [address] [place], [address], 12/03/2024 17:07:29 11/30/19 25 11/30/2024 COMP. METAB OLIC PANEL (14) globulin, total 2.5 g/dL 1.5-4. 5 Not Available [facility] ([facility]) [address] [place], [address], 12/03/2024 17:07:29 11/30/19 25 11/30/2024 COMP. METAB OLIC PANEL (14) bilirubin, total 0.2 mg/dL 0.0-1. 2 normal Not Available [facility] ([facility]) [address] [place], [address], 12/03/2024 17:07:29 11/30/19 25 11/30/2024 COMP. METAB OLIC PANEL (14) alkaline phosphatase 96 IU/L 44-121 normal Not Available [facility] ([facility]) [address] [place], [address], 12/03/2024 17:07:29 11/30/19 25 11/30/2024 COMP. METAB OLIC PANEL (14) AST (SGOT) 19 IU/L 0-40 normal Not Available [facility] ([facility]) [address] [place], [address], 12/03/2024 17:07:29 11/30/19 25 11/30/2024 COMP. METAB OLIC PANEL (14) ALT (SGPT) 18 IU/L 0-32 normal Not Available [facility] ([facility]) [address] [place], [address], 12/03/2024 17:07:29 11/30/19 25 11/30/2024 LIPID PANEL cholesterol, total 152 mg/dL 100-19 9 normal Not Available [facility] ([facility]) [address] [place], [address], 12/03/2024 17:07:29 11/30/19 25 11/30/2024 LIPID PANEL triglyceride s 348 mg/dL 0-149 above high normal Not Available [facility] ([facility]) [address] [place], [address], 12/03/2024 17:07:29 11/30/19 25 11/30/2024 LIPID PANEL HDL cholesterol 32 mg/dL >39 below low normal Not Available [facility] ([facility]) [address] [place], [address], 12/03/2024 17:07:29 11/30/19 25 11/30/2024 LIPID PANEL VLDL cholesterol sundar 55 mg/dL 5-40 above high normal Not Available [facility] ([facility]) [address] [place], [address], 12/03/2024 17:07:29 11/30/19 25 11/30/2024 LIPID PANEL LDL chol calc ([facility]) 65 mg/dL 0-99 Not Available [facility] ([facility]) [address] [facility], [place], [address], 12/03/2024 17:07:29 11/30/19 25 11/30/2024 LIPID PANEL LDL calc comment: TUMOR REGISTRAR Not Available [facility] ([facility]) [address] [facility], [place], [address], 12/03/2024 17:07:29 11/30/19 25 11/30/2024 C-PEP TIDE, SERUM C-peptide, serum 2.7 NG/mL 1.1-4. 4 C-Pep tide refer ence inter feliz is for fasti ng patie nts. Not Available [facility] ([facility]) [address] [facility], [place], [address], 12/03/2024 17:07:30 11/30/19 25 11/30/2024 HEMOG LOBIN A1C hemoglobin A1C 8.9 % 4.8-5. 6 above high normal Predi abete s: 5.7 - 6.4 Diabe murali: >6.4 Glyce berta contr ol for adult s with diabe murali: <7.0 Not Available [facility] ([facility]) [address] [facility], [place], [address], 12/03/2024 17:07:31 11/30/19 25 11/30/2024 SEDIM ENTAT ION RATE- WESTE RGREN sedimentatio n rate-westerg stevenson 61 mm/HR 0-40 above high normal Not Available [facility] ([facility]) [address] [facility], [place], [address], 12/03/2024 17:07:31 11/30/19 25 11/30/2024 MAGNE SIUM magnesium 1.6 mg/dL 1.6-2. 3 normal Not Available [facility] ([facility]) [address] [place], [address], 12/03/2024 17:07:31 11/30/19 25 12/03/2024 URINE CULTU RE, ROUTI NE urine culture, routine Final report abnormal Not Available [facility] ([facility]) [address] [facility], [place], [address], 12/03/2024 17:07:32 11/30/19 25 12/03/2024 URINE CULTU RE, ROUTI NE result 1 COMMEN T abnormal Esche sherry a fergu sonii Multi -Drug Resis tant Organ ism Great er than 100,0 00 colon y formi ng units per mL Not Available [facility] ([facility]) [address] [facility], [place], [address], 12/03/2024 17:07:32 11/30/19 25 12/03/2024 URINE CULTU RE, ROUTI NE antimicrobia l susceptibili ty Commen t S = Susce ptibl e; I = Inter media te; R = Resis tant P = Posit paul; N = Negat paul MICS are expre ssed in micro grams per mL Antib iotic RSLT# 1 RSLT# 2 RSLT# 3 RSLT# 4 Amoxi cilli n/Cla vulan ic Acid S Ampic illin I Cefox itin R Cefpo doxim e S Ertap enem S Nitro furan toin S Tetra cycli ne R Not Available [facility] ([facility]) [address] [facility], [place], [address], 12/03/2024 17:07:32 11/30/19 25 11/30/2024 C-TRAVIS CTIVE PROTE IN, QUANT C-reactive protein, quant 3 mg/L 0-10 normal Not Available [facility] ([facility]) [address] [facility], [place], [address], 12/03/2024 17:07:33 11/30/19 25 11/29/2024 urina lysis , dipst ick Color Dark Yellow Not Available [address], [address], 11/29/2024 13:29:00 11/30/19 25 11/29/2024 urina lysis , dipst ick Appearance Clear Not Available [address], [address], 11/29/2024 13:29:00 11/30/19 25 11/29/2024 urina lysis , dipst ick Glucose Negati ve Not Available [address], [address], 11/29/2024 13:29:00 11/30/19 25 11/29/2024 urina lysis , dipst ick Bilirubin Negati ve Not Available [address], [address], 11/29/2024 13:29:00 11/30/19 25 11/29/2024 urina lysis , dipst ick Ketone Negati ve Not Available [address], [address], 11/29/2024 13:29:00 11/30/19 25 11/29/2024 urina lysis , dipst ick Specific [place] 1.030 Not Available [address], [address], 11/29/2024 13:29:00 11/30/19 25 11/29/2024 urina lysis , dipst ick Blood Negati ve Not Available [address], [address], 11/29/2024 13:29:00 11/30/19 25 11/29/2024 urina lysis , dipst ick pH 5.5 Not Available [address], [address], 11/29/2024 13:29:00 11/30/19 25 11/29/2024 urina lysis , dipst ick Protein 300 Not Available [address], [address], 11/29/2024 13:29:00 11/30/19 25 11/29/2024 urina lysis , dipst ick Urobilinogen .2 Not Available Saad [address], [address], 11/29/2024 13:29:00 11/30/19 25 11/29/2024 urina lysis , dipst ick Nitrite positi ve Not Available [address], [address], 11/29/2024 13:29:00 11/30/19 25 11/29/2024 urina lysis , dipst ick Leukocytes Trace Not Available [address], [address], 11/29/2024 13:29:00 11/20/19 25 11/19/2024 elect rocar diogr am No observ ation record ed. [email or web address] [address], [address], 11/19/2024 16:58:35 11/20/19 25 11/19/2024 elect rocar diogr am No observ ation record ed. [email or web address] [facility] [address], [place], [address], 11/22/2024 09:08:29 11/23/19 25 11/19/2024 elect rocar diogr am No observ ation record ed. [email or web address] [address], [address], 11/23/2024 16:34:11 11/23/19 25 11/22/2024 XR, foot, 3 or more view No observ ation record ed. [facility] [address], [place], [address], 11/23/2024 18:15:43 11/30/19 25 11/19/2024 cardi ac monit or No observ ation record ed. [facility] [address], [place], [address], 11/30/2024 10:43:31 Result Notes None recorded. 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 [address], [place], [address] , [place] - [facility] 2 10:07:05 Gastroesophag eal reflux disease 863569954 Active 2021 Dylan Lebron APRN [address], [place], [address] , [place] - [facility] 2 10:06:49 Hypothyroidis m 61337899 Active 2021 Dylan Lebron, FLOORING SALES MANAGER [address], [place], [address] , [place] - [facility] 2 10:07:12 Neuropathy 760948713 Active 2021 Dylan Lebron [employer]LOORING SALES MANAGER [address], [place], [address] , [place] - [facility] 2 10:07:19 Arthritis 7403402 Active 2021 Dylan Lebron, FLOORING SALES MANAGER [address], [place], [address] , [place] - [facility] 2 10:06:47 Coronary arteriosclero sis 31670799 Active 2021 Dylan Lebron, FLOORING SALES MANAGER [address], [place], [address] , [place] - [facility] 2 10:18:21 Coronary artery bypass grafts x 3 Active 2021 Dylan Lebron, FLOORING SALES MANAGER [address], [place], [address] , [place] - [facility] 2 10:18:34 Chronic kidney disease stage 3B 653317496 Active Fina perales [place] - [facility] 11:42:05 Problem Notes None recorded. Procedures Surgical History Date Name Laterality Status Provider Name and Address Organization Details Recorded Time 025 Medication Reconcilliation completed Fina Vasquez [place] - [facility] 11/29/2024 13:05:51 025 Advance Care Planning completed Fina Vasquez [place] - [facility] 11/19/2024 10:41:02 025 IV Infusion completed Fina Vasquez [facility] 11/19/2024 15:44:19 025 Functional Status Assessed completed iFna Vasquez [place] - [facility] 11/19/2024 10:41:02 024 Date of Last Colonoscopy completed Dia Youssef [place] - [facility] 2024 13:27:50 024 Medication Reconcilliation completed Fina Vasquez [place] - [facility] 12/02/2023 10:36:18 023 In and Out Catheterization completed Margarita Banks, FLOORING SALES MANAGER [address], [place], [address], [place] - [facility] 02/13/2023 14:34:26 023 Medication Reconcilliation completed Fina GUARDADO - [facility] 01/31/2023 10:55:15 023 Medication Reconcilliation completed Fina GUARDADO - [facility] 01/06/2023 10:21:27 023 Medication Reconcilliation completed Fina Craneler [place] - [facility] 12/12/2022 10:55:58 023 Medication [...] Name and Address Organization Details Recorded Time 848506 lisinopri l medicatio n rash Not available high 12/17/2021 42974 RxNorm Fina Craneler null, [place] - [facility] 2 10:17:08 951211 Oxycontin medicatio n hallucina tions moderate high 12/17/2021 11291 6 RxNorm Fina Vasquez null, [place] - [facility] 2 10:18:04 554244 codeine medicatio n rash moderate high 12/17/2021 2670 RxNorm Fina Vasquez [place], [place] - [facility] 2 10:16:43 293905 acetamino phen / oxycodone medicatio n hallucina tions severe high 12/17/2021 24076 3 RxNorm Fina Vasquez [place] - [facility] 2 10:17:43 491868 cephalexi n medicatio n eye swelling Not available low 11/11/2022 2231 RxNorm Fina Vsaquez null, [place] - [facility] 3 12:54:33 076691 Macrobid medicatio n diarrhea moderate high 01/13/2023 11124 1 RxNorm vomit ing and diarr hea [...] Not Available Not Available Not Available [facility] [place] 3 mL 08/22 completed Not Available Not [...] blood by Pulse oximetry Heart rate Systolic And Diastolic Provider Name and Address Organization Details Last Updated DateTime 5 151.13 cm 28.4 kg/m2 76295.7 1 g 18 /min 92 % 92 % 90 /min 126/78 mm[Hg] Dia Stears [place] - [facility] 5 11:44:21 Date Recorded Body height Body mass index (BMI) Body weight Heart rate Oxygen saturation Oxygen saturation in Arterial blood by Pulse oximetry Systolic And Diastolic Provider Name and Address Organization Details Last Updated DateTime 5 151.13 cm 28.2 kg/m2 59352.1 2 g 86 /min 90 % 90 % 110/68 mm[Hg] Marlin Agostoin [place] - [facility] 5 13:33:59 Date Recorded Body height Respiratory rate Body mass index (BMI) Body weight Heart rate Oxygen saturation Oxygen saturation in Arterial blood by Pulse oximetry Heart rate Oxygen saturation Oxygen saturation in Arterial blood by Pulse oximetry Heart rate Oxygen saturation Provider Name and Address Organization Details Last Updated DateTime 5 151.13 cm 20 /min 28 kg/m2 59404.5 2 g 84 /min 94 % 94 [...] 82/52 mm[Hg] 110/60 mm[Hg] 100/60 mm[Hg] Fina Vasquez [facility] 5 15:39:55 Date Recorded Body height Body mass index (BMI) Body weight Body temperature Heart rate Oxygen saturation Oxygen saturation in Arterial blood by Pulse oximetry Respiratory rate Systolic And Diastolic Provider Name and Address Organization Details Last Updated DateTime 5 151.13 cm 27.6 kg/m2 82735.3 4 g 98 [degF] 87 /min 95 % 95 % 18 /min 118/64 mm[Hg] Fina Vasquez [facility] 5 13:17:29 Date Recorded Body height Respiratory rate Oxygen saturation Oxygen saturation in Arterial blood by Pulse oximetry Systolic And Diastolic Provider Name and Address Organization Details Last Updated DateTime 5 151.13 cm 18 /min 95 % 95 % 180/95 mm[Hg] Fina Vasquez [facility] 5 11:25:30 Social History Question Answer Notes LastModified by Organizat ion Details LastModified Time Tobacco Smoking Status Never Smoker Dia perales [facility] 12/17/2021 09:30:03 Do You Have An [...] Or The Highest Degree You Have Received? [id number] Information not available 12/17/2021 Have There Been Any Changes To Your Family Or Social Situation? No Information no t available 07/14/2023 What Is The Fluoride Status Of Your Home? Unknown Information not available 07/14/2023 Have You Recently Or Are You Planning To Travel To An Area With Zika Virus? No Information not available 07/14/2023 Do You Have A Medical Power Of Boom Stick Worker? No Information not available 07/14/2023 What Was [...] anxious, or unable to sleep at night)? [id number] Information not available 12/20/2021 Do you have [...] high-dose, quadrivalent, PF 02/21/2022 completed Dylan Lebron, FLOORING SALES MANAGER [address], [place], [address], [place] [facility] 03/26/2022 17:30:58 Influenza, high-dose, quadrivalent, PF 04/25/2023 completed Fina Vasquez null, [place] - [facility] 04/25/2023 13:24:26 Influenza, high-dose, trivalent, PF 02/24/2024 completed Fina Vasquez null[place] [facility] 03/11/2024 17:52:11 COVID-19, mRNA, LNP-S, PF, 100 mcg/0.5mL dose or 50 mcg/0.25mL dose 08/02/2020 completed Fina Vasquez null[place] - [facility] 08/22/2022 14:19:25 COVID-19, mRNA, LNP-S, PF, 100 mcg/0.5mL dose or 50 mcg/0.25mL dose 08/31/2020 completed Fina Vas[place] [facility] 08/22/2022 14:19:25 COVID-19, mRNA, LNP-S, PF, 100 mcg/0.5mL dose or 50 mcg/0.25mL dose 04/11/2021 completed Fina Vas[place] [facility] 08/22/2022 14:19:25 Tdap 04/20/2013 completed Fina Pedro null[place] [facility] 08/22/2022 14:19:25 zoster live 04/20/2013 completed Fina Vas[place] [facility] 08/22/2022 14:19:25 Influenza, high-dose, trivalent, PF 05/16/2021 completed Fina Vas[place] [facility] 08/22/2022 14:19:25 Past Encounters Encounter ID Performer Location Encounter Start Date Encounter Closed Date Diagnosis/Indication Diagnosis SNOMED-CT Code Diagnosis ICD10 Code Diagnosis Note [id number] Dylan Lebron APRN [address] [address] 12/17/2021 08:46:07 12/17/2021 10:35:13 Diabetes mellitus 81509520 E11.9 Overall, pt doing well at this [...] questions or concerns arise. Urinary incontinence 165 770243 R32 pt wants to wait on referral wants to try meds first. if gfr wnl will start mybretriq Hypercholesterolemia 136 16227 E78.00 Hypertensive disorder 38 331252 I10 Hypothyroidism 08271262 E03.9 Neuropathy 113992272 G62 .9 on gabapentin Coronary arteriosclerosis 82127024 I25.10 follow up with cardiology as scheduled [id number] Dylan Lebron APRN [address] [address] 12/20/2021 14:52:20 12/20/2021 17:13:38 Type 2 diabetes mellitus 16309538 E11.21 Insulin pump present 450 432310 Z96.41 increased Education about insulin pump 5507343540 20825 Z46.81 current insulin pump settings:b maru rate 1.9 units/hr midnight to 8 am2.5 units/hr 8am to 12 pmtotal 58.2 units a daymax of 80 units a day adjustment s :basal rate 1.9 units/hr midnight to 8 am2.85 units/hr 8am to 12 pmtotal of 65.55 units in 24 hoursincre ase bolus to each meal and snack Acute urin nasra tract infection 967544253 N39.0 med sent [id number] Dylan Lebron [address] [address] 01/07/2022 13:15:54 01/07/2022 14:11:25 Acute urinary tract infection 457634034 N39.0 med sent Dizzy spells 923571142 R 42 [id number] Dylan Lebron [address] [address] 01/15/2022 14:53:00 01/15/2022 15:42:34 Acute urinary tract infection 618849445 N39.0 med sent, discussed with pharm antibiotic s based on culture, will reculture and sent referral [facility] 6077302136 23301 M25.637 [id number] Dylan Lebron [address] [address] 01/24/2022 10:35:55 01/24/2022 11:11:42 Low back pain 446874906 M54.41 decadron 4mg given im, watch glucose close may need to adjust insulin dose for a few days [id number] Dylan Lebron [address] [address] 01/28/2022 14:54:09 01/28/2022 16:38:47 Neuropathy 682536395 G62.9 on gabapentin Low back pain 261934713 M54.41 [id number] Dylan Lebron FLOORING SALES MANAGER[address] [address] 02/04/2022 10:17:23 02/04/2022 11:03:56 Low back pain 003826575 M54.41 Donald report obtained, reviewed, and made [...] 3 days or norco until mri resulted [id number] Dylan Lebron APRN [address] [address] 02/21/2022 09:51:52 02/21/2022 11:03:15 Low back pain 977155014 M54.41 Donald report obtained, reviewed, and made [...] as csa on file Influenza vaccine needed 2021671186 106 Z23 [id number] Dylan Lebron APRN [address] [address] 08/22/2022 13:52:04 08/22/2022 15:02:08 Neuropathy 256095155 G62.9 Pt compliant with plan of careKasper reviewed and appropriat emedicatio n compliance discussedC ontrol substance agreement on fileuds next visit- pt has pain and difficulty getting on and off toilet Type 2 lxex betes mellitus 59727185 E11.21 labs next visit Hypertensive disorder 38 943062 I10 labs next visit Hypercholesterolemia 136 41704 E78.00 [id number] Eugonda Fryman, [address] [address] 11/08/2022 13:31:16 11/08/2022 14:44:29 Acute urinary tract infection 554810681 N39.0 increase fluids Candidiasis of vagina 72 196811 B37.31 [id number] Dylan Lebron [address] [address] 11/19/2022 14:48:02 11/19/2022 15:38:27 Acute confusion 541331848 R41.0 sent to ed for eval- report to Yanelis Arzola RN Abnormal g ait due to muscle weakness 607667729 M62.81 Unsteady when walking 22 290928 R26.89 Abnormal vision 7782743 H54.7 Disorder o f eye movements 92159234 H55.89 [id number] Dylan Lebron [address] [address] 11/25/2022 14:33:30 11/25/2022 15:58:01 Headache 96306395 R51.9 discussed with [place] at dr do office and recommende d going back to ed for eval. pt sent to [facility] for eval report called to Marlin. Abnormal g ait due to muscle weakness 738525748 M62.81 [id number] Dylan Lebron [address] [address] 12/12/2022 10:35:13 12/12/2022 11:44:04 Hypercholesterolemia 70773574 E78.00 Hypertensive disorder 38 277888 I10 Hypothyroidism 84798019 E03.9 Type 2 lexx betes mellitus 66842959 E11.21 Long-term current use of drug therapy 851327135 Z79.899 Long-term current use of insulin 829251303 Z79.4 Insulin pump present 450 658184 Z96.41 Abnormal g ait due to impairment of balance 767803866 R26.89 Hyperkalemia 44076486 E8 7.5 Neuropathy 377450409 G62 .9 [facility] and appropriat emedicatio n compliance discussedC ontrol substance agreement on fileuds :12/12/22 [id number] Dylan Ramirescarito [address] [address] 01/06/2023 10:15:58 01/06/2023 11:25:08 Acute urinary tract infection 192047886 N39.0 increase fluids Candidiasis of skin 4988 3006 B37.2 Fatigue 16846453 R53.83 Cobalamin deficiency 190 858012 E53.8 [id number] Dylan Beartiffany [address] [address] 01/13/2023 09:55:30 01/13/2023 10:48:55 Acute urinary tract infection 739439658 N39.0 increase fluidsspok e with dr grajeda will send to [facility] for eval and treatment Low blood pressure 42670 003 I95.9 Abnormal g ait due to muscle weakness 562885769 M62.81 [id number] [facility] [address] [address] 01/31/2023 10:32:52 01/31/2023 11:32:09 Hypercholesterolemia 61275410 E78.00 History of urinary tract infection 5463476590 107 Z87.440 Muscle weakness 78959545 M62.81 Acute urin nasra tract infection 313219487 N39.0 increase fluidsurol ogy consultcx Hyperglyce sera due to type 2 diabetes mellitus 9180821461 54291 E11.65 Hypoglycemia 087761040 E 16.2 pt would benefit from omnipod 5 and dexcom 6- this could prevent hyper and hypoglycem ia episodes [id number] [facility] [address] [place] [address] 02/04/2023 14:22:54 02/04/2023 15:54:28 Hypertensive disorder 00081288 I10 Type 2 lexx betes mellitus 24694228 E11.21 Coronary arteriosclerosis 35641344 I25.10 Chronic ki dney disease stage 4 067429389 N18.4 Recurrent urinary tract infection 102709982 N39.0 -continue estradiol VC. Hydronephrosis 46106687 N13.30 Patient la dical record not available 201970590 Z76.89 Mixed urin nasra incontinence 505447458 N39.46 Acute urin nasra tract infection 674806554 N39.0 [id number] [facility] [address] [place] [address] 4 02/13/2023 13:31:33 02/13/2023 14:44:51 Recurrent urinary tract infection 159268951 N39.0 -continue estradiol VC. Hydronephrosis 16532283 N13.30 Chronic ki dney disease stage 4 056601192 N18.4 Hypertensive disorder 38 891568 I10 Type 2 lexx betes mellitus 44286335 E11.21 Coronary arteriosclerosis 70703852 I25.10 Mixed urin nasra incontinence 941144628 N39.46 [id number] [facility] [address] [address] 4 03/06/2023 14:23:11 03/06/2023 15:44:51 Recurrent urinary tract infection 780410174 N39.0 -continue estradiol VC. Hydronephrosis 73826320 N13.30 Chronic ki dney disease stage 4 053593324 N18.4 Hypertensive disorder 38 285849 I10 Type 2 lexx betes mellitus 51361116 E11.21 Coronary arteriosclerosis 95924404 I25.10 Mixed urin nasra incontinence 543134255 N39.46 Acute urin nasra tract infection 438890626 N39.0 [id number] [facility] [address] [place] [address] 4 03/25/2023 13:36:38 03/25/2023 14:21:18 Recurrent urinary tract infection 225827097 N39.0 -continue estradiol VC. Hydronephrosis 19561108 N13.30 Chronic ki dney disease stage 4 578046016 N18.4 Hypertensive disorder 38 854161 I10 Type 2 lexx betes mellitus 36245468 E11.21 Coronary arteriosclerosis 62068997 I25.10 Mixed urin nasra incontinence 901387180 N39.46 Overactive urinary bladder 682826355 N32.81 -avoid anticholin ergics in this patient d/t potential patient harm. anticholin ergics interact with currently rx medication s and combo may incr. risk of INTERNET MARKETING ASSISTANT depression , psychomoto r impairment . Also pt is 72 years old, and anticholin ergics should be avoided d/t BEERS criteria.B eta 3 agonists are the safest alternativ e for this patient. [id number] Margarita Banks APRN [facility] [address] [place] [address] 05/06/2023 13:48:23 05/06/2023 14:45:17 Recurrent urinary tract infection 822026299 N39.0 -continue estradiol VC. Hydronephrosis 44904245 N13.30 Chronic ki dney disease stage 4 575597525 N18.4 Hypertensive disorder 38 422924 I10 Type 2 lexx betes mellitus 39848422 E11.21 Coronary arteriosclerosis 74827029 I25.10 Mixed urin nasra incontinence 807934196 N39.46 Overactive urinary bladder 556665215 N32.81 -avoid anticholin ergics in this patient d/t potential patient harm. anticholin ergics interact with currently rx medication s and combo may incr. risk of INTERNET MARKETING ASSISTANT depression , psychomoto r impairment . Also pt is 72 years old, and anticholin ergics should be avoided d/t BEERS criteria.B eta 3 agonists are the safest alternativ e for this patient. -PFPT- unable to travel. she does not have a PFPT provider within a [address] from her home.-fail ed bladder training. Acute urin nasra tract infection 889766377 N39.0 [id number] Dylan Lebron APRN [facility] [address] [place] [address] 04/03/2023 10:54:18 04/03/2023 12:24:14 Neuropathy 576477920 G62.9 Pt compliant with plan of careKaspmegha reviewed and appropriat emedicatio n compliance discussedC ontrol substance agreement on file Long-term drug therapy 145469005 Z79.899 Coronary arteriosclerosis 16244707 I25.10 follow up with cardiology as scheduled Hypercholesterolemia 136 46371 E78.00 Hypertensive disorder 38 205279 I10 Hypothyroidism 31814128 E03.9 Type 2 lexx luz mellitus 92451733 E11.21 due to hypoglycem ia and her having to treat lows she would benefit from the dexcom g6 and omnipod 5 to mange her lows better. pt is scared of hypoglycem ia so at 100 she is treating low with glucose tablets. pt has been hospitaliz ed due to lows. Hypoglycemia 488186945 E 16.2 pt would benefit from omnipod 5 and dexcom 6- this could prevent hyper and hypoglycem ia episodes [id number] Dylan Lebron APRN [facility] [address] [place] [address] 04/25/2023 08:48:34 04/25/2023 10:09:13 Influenza vaccine needed 7770032437 106 Z23 Arthritis 3858056 M19.90 Coronary arteriosclerosis 57372180 I25.10 follow up with cardiology as scheduled Gastroesop hageal reflux disease 163666743 K21.9 Hypercholesterolemia 136 37652 E78.00 Hypertensive disorder 38 373567 I10 Hypothyroidism 86884303 E03.9 Neuropathy 001419354 G62 .9 Pt compliant with plan of careKasper reviewed and appropriat emedicatio n compliance discussedC ontrol substance agreement on file Type 2 lexx luz mellitus 54543503 E11.21 due to hypoglycem ia and her having to treat lows she would benefit from the dexcom g6 and omnipod 5 to mange her lows better. pt is scared of hypoglycem ia so at 100 she is treating low with glucose tablets. pt has been hospitaliz ed due to lows. Acute urin nasra tract infection 854343483 N39.0 increase fluidsurol ogy consultcx [id number] Margarita Banks APRN [facility] [address] [place] [address] 06/05/2023 10:06:54 06/05/2023 11:17:33 Recurrent urinary tract infection 628628580 N39.0 -continue estradiol VC. Hydronephrosis 29151850 N13.30 Chronic ki dney disease stage 4 386126371 N18.4 Hypertensive disorder 38 143879 I10 Type 2 lexx luz mellitus 60565048 E11.21 Coronary arteriosclerosis 05941006 I25.10 Mixed urin nasra incontinence 020076828 N39.46 Overactive urinary bladder 798085905 N32.81 -avoid anticholin ergics in this patient d/t potential patient harm. anticholin ergics interact with currently rx medication s and combo may incr. risk of INTERNET MARKETING ASSISTANT depression , psychomoto r impairment . Also pt is 72 years old, and anticholin ergics should be avoided d/t BEERS criteria.B eta 3 agonists are the safest alternativ e for this patient. -PFPT- unable to travel. she does not have a PFPT provider within a [address] from her home.-fail ed bladder training. Candidiasis of vagina 72 648701 B37.31 reported per pt with abx tx. [id number] Dylan Lebron APRN [address] [address] 05/23/2023 13:24:23 05/23/2023 14:10:28 History of urinary tract infection 3345299228 107 Z87.440 Increased frequency of urination 846161410 R35.0 Acute back pain with sciatica 007962705 M54.41 monitor glucose close [id number] Margarita Banks [facility] [address] [place] [address] 07/10/2023 11:09:05 07/10/2023 11:36:55 Recurrent urinary tract infection 635169505 N39.0 -continue estradiol VC. Hydronephrosis 37910041 N13.30 Chronic ki dney disease stage 4 460519472 N18.4 Hypertensive disorder 38 317323 I10 Type 2 lexx betes mellitus 46492749 E11.21 Coronary arteriosclerosis 82440130 I25.10 Mixed urin nasra incontinence 361452522 N39.46 Overactive urinary bladder 326312274 N32.81 -avoid anticholin ergics in this patient d/t potential patient harm. anticholin ergics interact with currently rx medication s and combo may incr. risk of INTERNET MARKETING ASSISTANT depression , psychomoto r impairment . Also pt is 72 years old, and anticholin ergics should be avoided d/t BEERS criteria.B eta 3 agonists are the safest alternativ e for this patient. -PFPT- unable to travel. she does not have a PFPT provider within a [address] from her home.-fail ed bladder training. [id number] Dylan Lebron APRN [facility] [address] [place] [address] 07/01/2023 14:51:59 07/01/2023 16:21:06 Arthritis 5578067 M19.90 Neuropathy 375817745 G62 .9 Pt compliant with plan of careDiaspmegha reviewed and appropriat emedicatio n compliance discussedC ontrol substance agreement on fileuds: History of urinary tract infection 3279829963 107 Z87.440 Pain of ri ght hip joint 4849804579 18820 M25.551 steroids if no improvemen t will order xrays Pain of ri ght ankle joint 7442778061 3997594 M25.571 Chronic ki dney disease 366964742 N18.9 Middle ear effusion 1004 084177 H74.8X9 steroidsmo nitor glucose close [id number] Margarita Banks APRN [facility] [address] [place] [address] 08/20/2023 09:32:55 08/20/2023 10:07:07 Recurrent urinary tract infection 820823454 N39.0 -continue estradiol VC. Hydronephrosis 24681902 N13.30 Chronic ki dney disease stage 4 486801891 N18.4 Hypertensive disorder 38 986767 I10 Type 2 lexx betes mellitus 05282586 E11.21 Coronary arteriosclerosis 48245515 I25.10 Mixed urin nasra incontinence 169518444 N39.46 Overactive urinary bladder 560787890 N32.81 -avoid anticholin ergics in this patient d/t potential patient harm. anticholin ergics interact with currently rx medication s and combo may incr. risk of INTERNET MARKETING ASSISTANT depression , psychomoto r impairment . Also pt is 72 years old, and anticholin ergics should be avoided d/t BEERS criteria.B eta 3 agonists are the safest alternativ e for this patient. -PFPT- unable to travel. she does not have a PFPT provider within a [address] from her home.-fail ed bladder training. [id number] Margarita Banks [facility] [address] [place] [address] 10/01/2023 10:33:52 10/01/2023 11:15:46 Recurrent urinary tract infection N39.0 -continue estradiol VC. Hydronephrosis 85918855 N13.30 Chronic ki dney disease stage 4 373718851 N18.4 Hypertensive disorder 38 941494 I10 Type 2 lexx betes mellitus 55268467 E11.21 Coronary arteriosclerosis 54575681 I25.10 Mixed urin nasra incontinence 129826273 N39.46 Overactive urinary bladder 481642304 N32.81 -avoid anticholin ergics in this patient d/t potential patient harm. anticholin ergics interact with currently rx medication s and combo may incr. risk of INTERNET MARKETING ASSISTANT depression , psychomoto r impairment . Also pt is 72 years old, and anticholin ergics should be avoided d/t BEERS criteria.B eta 3 agonists are the safest alternativ e for this patient. -PFPT- unable to travel. she does not have a PFPT provider within a [address] from her home.-fail ed bladder training. [id number] Margarita [place]berman[place] [facility] [address] [place] [address] 11/12/2023 10:37:57 11/12/2023 11:26:49 Recurrent urinary tract infection N39.0 -continue estradiol VC. Hydronephrosis 83635784 N13.30 Chronic ki dney disease stage 4 217953705 N18.4 Hypertensive disorder 38 808872 I10 Type 2 lexx betes mellitus 94854617 E11.21 Coronary arteriosclerosis 00996168 I25.10 Mixed urin nasra incontinence 599906940 N39.46 Overactive urinary bladder 349877146 N32.81 -avoid anticholin ergics in this patient d/t potential patient harm. anticholin ergics interact with currently rx medication s and combo may incr. risk of INTERNET MARKETING ASSISTANT depression , psychomoto r impairment . Also pt is 72 years old, and anticholin ergics should be avoided d/t BEERS criteria.B eta 3 agonists are the safest alternativ e for this patient. -PFPT- unable to travel. she does not have a PFPT provider within a [address] from her home.-fail ed bladder training. [id number] [facility] [address] [place] [address] 12/31/2023 10:10:39 12/31/2023 10:57:14 Recurrent urinary tract infection 928640243 N39.0 -continue estradiol VC. Hydronephrosis 95449454 N13.30 Chronic ki dney disease stage 4 467039697 N18.4 Hypertensive disorder 38 642652 I10 Type 2 lexx betes mellitus 08353478 E11.21 Coronary arteriosclerosis 51550651 I25.10 Mixed urin nasra incontinence 304992296 N39.46 Overactive urinary bladder 841595446 N32.81 -avoid anticholin ergics in this patient d/t potential patient harm. anticholin ergics interact with currently rx medication s and combo may incr. risk of INTERNET MARKETING ASSISTANT depression , psychomoto r impairment . Also pt is 72 years old, and anticholin ergics should be avoided d/t BEERS criteria.B eta 3 agonists are the safest alternativ e for this patient. -PFPT- unable to travel. she does not have a PFPT provider within a [address] from her home.-fail ed bladder training. Body mass index 25-29 - overweight 279420308 Z68.28 BMI 28.9 Overweight 051198929 E66 .3 Patient la dical record not available 484121965 Z76.89 [id number] [facility] [address] [place] [address] 11/27/2023 09:40:33 11/27/2023 10:21:23 Recurrent urinary tract infection N39.0 -continue estradiol VC. Hydronephrosis 94728482 N13.30 Chronic ki dney disease stage 4 888770712 N18.4 Hypertensive disorder 38 383763 I10 Type 2 lexx betes mellitus 86214116 E11.21 Coronary arteriosclerosis 67424207 I25.10 Mixed urin nasra incontinence 762673156 N39.46 Overactive urinary bladder 061959664 N32.81 -avoid anticholin ergics in this patient d/t potential patient harm. anticholin ergics interact with currently rx medication s and combo may incr. risk of INTERNET MARKETING ASSISTANT depression , psychomoto r impairment . Also pt is 72 years old, and anticholin ergics should be avoided d/t BEERS criteria.B eta 3 agonists are the safest alternativ e for this patient. -PFPT- unable to travel. she does not have a PFPT provider within a [address] from her home.-fail ed bladder training. Candidiasis of mouth 797 89068 B37.0 Candidiasis of vagina 72 858542 B37.31 reported per pt with abx tx. Patient me dical record not available 446278686 Z76.89 [id number] Dylan Lebron APRN [address] [address] 12/02/2023 10:14:12 12/02/2023 11:50:08 Neuropathy 118806242 G62.9 Pt compliant with plan of careDonald reviewed and appropriat emedicatio n compliance discussedC ontrol substance agreement on fileuds: Syncope 992108328 R55 if episode happens go to ed Intermitte nt confusion 890759572 R41.0 referral to neuro Candidiasis of skin 4988 3006 B37.2 yogurt Candidiasis of mouth 797 38266 [address]37.[id number] [facility] [address] [place] [address] 02/04/2024 11:12:56 02/04/2024 13:31:27 Recurrent urinary tract infection 131250947 N39.0 -continue estradiol VC. Hydronephrosis 14055007 N13.30 Chronic ki dney disease stage 4 716667589 N18.4 Hypertensive disorder 38 122401 I10 Type 2 lexx betes mellitus 78341497 E11.21 Coronary arteriosclerosis 54700386 I25.10 Mixed urin nasra incontinence 404248077 N39.46 Overactive urinary bladder 247995303 N32.81 -avoid anticholin ergics in this patient d/t potential patient harm. anticholin ergics interact with currently rx medication s and combo may incr. risk of INTERNET MARKETING ASSISTANT depression , psychomoto r impairment . Also pt is 72 years old, and anticholin ergics should be avoided d/t BEERS criteria.B eta 3 agonists are the safest alternativ e for this patient. -PFPT- unable to travel. she does not have a PFPT provider within a [address] from her home.-fail ed bladder training. Body mass index 25-29 - overweight 113175387 Z68.28 BMI 28.9 Overweight 685967979 E66 .3 Acute urin nasra tract infection 172419950 N39.[id number] [facility] [address] [place] [address] 03/24/2024 11:07:18 03/24/2024 11:59:47 Recurrent urinary tract infection 219900652 N39.0 -continue estradiol VC. Hydronephrosis 02507713 N13.30 Chronic ki dney disease stage 4 049824394 N18.4 Hypertensive disorder 38 145621 I10 Type 2 lexx betes mellitus 39806781 E11.21 Coronary arteriosclerosis 24930325 I25.10 Mixed urin nasra incontinence 722956040 N39.46 Overactive urinary bladder 675142674 N32.81 -avoid anticholin ergics in this patient d/t potential patient harm. anticholin ergics interact with currently rx medication s and combo may incr. risk of INTERNET MARKETING ASSISTANT depression , psychomoto r impairment . Also [...] legs. Body mass index 25-29 - overweight 730438230 Z68.28 BMI 28.9 Overweight 849073393 E66 .3 [id number] Dylan Lebron APRN [address] [address] 02/24/2024 10:32:52 02/24/2024 12:15:00 Type 2 diabetes mellitus 06947783 E11.21 labs Influenza vaccine needed 8912646341 106 Z23 Coronary arteriosclerosis 86398848 I25.10 follow up with cardiology as scheduled Hypercholesterolemia 136 24110 E78.00 labs Hypertensive disorder 38 285180 I10 labs Hypothyroidism 80278223 E03.9 labs Neuropathy 535994019 G62 .9 Pt compliant with plan of careDonald reviewed and appropriat emedicatio n compliance discussedC ontrol substance agreement on fileuds: Candidiasis of skin 4988 3006 B37.2 yogurt Long-term drug therapy 007857119 Z79.204 [id number] Dylan Lebron APRN [address] [address] 03/08/2024 14:13:34 03/08/2024 15:45:05 Type 2 diabetes mellitus 64294277 E11.21 needs the omnipod 5 that works with dexcom 7 so the pump can adjust based on cgm, high risk for hyperglyce sera Low back pain 686032842 M54.41 seen xray and talked with pt- due to broken hardware i have asked they only work with pt on her gait and balance and informed pt of xray results so she would understand . [id number] Margarita Banks [facility] [address] [place] [address] 05/25/2024 11:21:29 05/25/2024 12:02:02 Recurrent urinary tract infection 378117373 N39.0 -continue estradiol VC. Hydronephrosis 69635631 N13.30 Chronic ki dney disease stage 4 667217110 N18.4 Hypertensive disorder 38 623710 I10 Type 2 lexx betes mellitus 56290039 E11.21 Coronary arteriosclerosis 60876246 I25.10 Mixed urin nasra incontinence 173388185 N39.46 Overactive urinary bladder 529920194 N32.81 -avoid anticholin ergics in this patient d/t potential patient harm. anticholin ergics interact with currently rx medication s and combo may incr. risk of INTERNET MARKETING ASSISTANT depression , psychomoto r impairment . Also [...] legs. Body mass index 25-29 - overweight 870861062 Z68.28 BMI 28.9 Overweight 906655832 E66 .3 [id number] Margarita Banks APRN [facility] [address] [place] [address] 08/24/2024 10:39:52 08/24/2024 11:30:09 Recurrent urinary tract infection 170280401 N39.0 -continue estradiol VC. Overactive urinary bladder 236596122 N32.81 -avoid anticholin ergics in this patient d/t potential patient harm. anticholin ergics interact with currently rx medication s and combo may incr. risk of INTERNET MARKETING ASSISTANT depression , psychomoto r impairment . Also pt is 72 years old, and anticholin ergics should be avoided d/t BEERS criteria.B eta 3 agonists are the safest alternativ e for this patient. -PFPT- unable to travel. she does not have a PFPT provider within a [address] from her home.-fail ed bladder training. failed myrbetriq- caused swelling in legs. Hydronephrosis 05302061 N13.30 Chronic ki dney disease stage 4 306165114 N18.4 Hypertensive disorder 38 072207 I10 Type 2 lexx betes mellitus 72597301 E11.21 Coronary arteriosclerosis 36248461 I25.10 Mixed urin nasra incontinence 983603360 N39.46 Body mass index 25-29 - overweight 522527435 Z68.28 BMI 28.9 Overweight 722451416 E66 .3 [id number] Dylan Lebron APRN [address] [address] 2024 12:53:40 2024 14:27:55 Type 2 diabetes mellitus 96577786 E11.21 needs the omnipod 5 that works with dexcom 7 so the pump can adjust based on cgm, high risk for hyperglyce sera Hypertensive disorder 38 721758 I10 Hypercholesterolemia 136 72666 E78.00 Gastroesop hageal reflux disease 041574220 K21.9 Hypothyroidism 35306501 E03.9 Neuropathy 593669224 G62 .9 Pt compliant with plan of careDonald reviewed and appropriat emedicatio n compliance discussedC ontrol substance agreement on fileuds: Arthritis 2102820 M19.90 Coronary arteriosclerosis 14852431 I25.10 follow up with cardiology as scheduled Acute urin nasra tract infection 796748594 N39.0 increase fluidsurol ogy consultcx Abnormal g ait due to impairment of balance 392014052 R26.89 [id number] Dylan Lebron APRN [facility] [address] [place] [address] 07/19/2024 10:50:07 07/19/2024 12:07:19 Acute urinary tract infection 435316343 N39.0 increase fluidsurol ogy consultcx Type 2 lexx betes mellitus 01099607 E11.21 needs the omnipod 5 that works with dexcom 7 so the pump can adjust based on cgm, high risk for hyperglyce miacarb to insulin ratio changed and target range adjusted. Vertigo 270103851 R42 [id number] [facility] [address] [place] [address] 10/08/2024 13:08:12 10/08/2024 14:14:05 Recurrent urinary tract infection 257068241 N39.0 -continue estradiol VC. Overactive urinary bladder 664790947 N32.81 -avoid anticholin ergics in this patient d/t potential patient harm. anticholin ergics interact with currently rx medication s and combo may incr. risk of INTERNET MARKETING ASSISTANT depression , psychomoto r impairment . Also [...] d gemtesa- caused swelling in legs. Hydronephrosis 19328330 N13.30 Chronic ki dney disease stage 4 099932061 N18.4 Hypertensive disorder 38 625933 I10 Type 2 lexx betes mellitus 06618576 E11.21 Coronary arteriosclerosis 42501110 I25.10 Mixed urin nasra incontinence 604943594 N39.46 Body mass index 25-29 - overweight 113707346 Z68.28 BMI 28.9 Overweight 147009711 E66 .3 [id number] Dylan Lebron [address] [address] 09/02/2024 13:48:04 09/02/2024 15:32:54 Neuropathy 830696718 G62.9 Pt compliant with plan of careDonald reviewed and appropriat emedicatio n compliance discussedC ontrol substance agreement on fileuds: Long-term drug therapy 793811838 Z79.899 Acute maxi llary sinusitis 40973453 J01.00 on cipro Cough 88577254 R05.9 meds 6961842 [facility] [address] 09/27/2024 11:37:40 09/27/2024 12:12:41 Candidiasis of vagina 53389136 B37.31 take diflucan tab- only took one tabwait for cx results on urine and vaginal- before starting antibiotic s Burning se nsation of vagina 296936497 N94.89 Pruritus of vagina 46471 003 N89.8 [id number] [facility] Biloxinando Lebron[address] [address] 11/19/2024 10:13:18 11/19/2024 13:47:54 Adult health examination 624893187 Z00.00 Depression screening 171 884246 Z13.31 A depression screening was completed via a standardiz ed screening tool. 5 minutes were spent discussing depression screening results and risk factors. Examinatio n of blood pressure 777888685 Z01.30 Diet education 58217612 Z71.3 Counseling 022792685 Z71 .82 Exercise counseling . Patient encouraged to exercise 30 minutes 5 days a week. At [facility] ed risk for falls 303686265 Z91.81 STEADI FAST screening score of _12____. Advance care planning 71 3473374 Z71.89 Gout 93307616 M10.9 Hypertensive disorder 38 133692 I10 Hypercholesterolemia 136 02921 E78.00 Type 2 lexx betes mellitus 18546926 E11.21 Hypothyroidism 06236387 E03.9 Neuropathy 559682930 G62 .9 Pt compliant with plan of careKasper reviewed and appropriat emedicatio n compliance discussedC ontrol substance agreement on fileuds: Hepatitis C screening declined 7865266305 5105 Z53.20 Ulcer of t oe due to type 2 diabetes mellitus 9900209351 83282 E11.621 L97.529 follow up with podiatryan tibioticsb etadine soaked dressings change dressing daily Pain of le ft knee joint 4508554130 72234 M25.562 Impaired cognition 90249 6002 G31.84 Low blood pressure 22495 003 I95.9 Syncope and collapse 309 141046 R55 if episode happens go to ed [id number] Dylan Lebron APRN [address] [address] 11/29/2024 12:36:15 11/29/2024 14:31:57 Acute urinary tract infection 280770992 N39.0 increase fluids cx Syncope and collapse 309 374174 R55 if episode happens go to ed Type 2 lexx betes mellitus 29019560 E11.21 Infection of foot due to diabetes mellitus 683994745 E11.628 L08.9 follow up with taty on ue antibiotic s- one dose left [id number] Dylan Lebron APRN [address] [address] 12/09/2024 10:12:10 12/09/2024 11:19:38 Acute urinary tract infection 165113703 N39.0 advised to go to er for eval - pt declined at this timetake antibiotic as ordereddis cussed risk Neuropathy due to type 2 diabetes mellitus 4306639468 68550 E11.40 Z79.4 Health Concerns Section Related Observation LastModified by Organization Detai ls LastModified Time None Recorded Concern Status LastModified by Organization Details LastModified Time None Recorded Advance Directives Directive N: Payers Insurance Date Sequence Insurance Name Policy Number Policy Elena Covered Member ID Elena Member ID Guarantor Name 12/07/2024 [employer] [id number] Jillian Robert [id number] Jillian Robert 12/07/2024 1 [place] Jillian Robert [id number] Jillian Robert 01/05/2022 1 [place] [employer] Jillian Robert [id number] Jillian Robert 12/07/2024 2 FOR LIFE ( - MEDICARE SUPPLEMENT) [id number] Mariano Robert [id number] Jillian Robert 12/17/2021 2 FOR LIFE () Jillian Robert [id number] Jillian Robert Notes Date Note Type Note [...] and itching, burning with urination Dylan Lebron, FLOORING SALES MANAGER [address], [place], [address], [place] - [facility] 12/03/2024 11:16:38 5 text/html Lower Urinary Tract Symptoms (LUTS)Reported bypatient.Location:[facility] er Quality:worsening Severity:bothersome Onset/Timing:> 1 year Duration:constant Context:has seen Urologist (dr mojica.); number of vaginal deliveries: (csection x 1 in 1969); previous hysterectomy (approx 2002, [place] and BSO, bladder tack.) Associated Symptoms:no abdominal [...] faecalis -mid december 2022- d/c summary from [facility] reports admit for left pyelo UCX grew klebsiella pneumoniae. -01/13/23- UCx negative.-01/13/23- creat 2.2, gfr 27. -01/13/23- CT abd pel w/o- per report- moderate hydronephrosis and hydroureter on the left, stable. moderate thickening of the bladder, likely d/t under distension. -01/14/23- d/c summary from [facility]- reviewed. admitted 01/13/23 for uti. ucx >100k [...] forgot to restart it again Margarita Banks, FLOORING SALES MANAGER [address], [place], [address], [place] - [facility] 10/08/2024 14:12:25 5 text/html [...] as EMS personnel arrived. Patient taken to [facility] per [facility]. Dylan Lebron APRN [address], [place], [address], [place] - [facility] 11/19/2024 16:25:37 5 text/html Emergency Department Follow-Up RecordReported bypatient.Discharge InformationName of hospital/urgent care patient was seen: ([facility]); Patient presented to hospital/urgent care on or [...] for months but more noticeable lately. Dylan Lebron APRN [address], [place], [address], [facility] - [facility] 11/29/2024 14:13:11 5 text/html 74 yr old female presents for lab/cmp nurse visit. Vital signs are abnormal, patient diaphoretic, flushed and nauseated. reports an episode of blindness and hurting all over around 2 am this am, ems was called but she had improved when ems arrived, refused hospital transport. pt states having n/v and zofran not helping. want script for phenergan Dylan Lebron APRN [address], [place], [address], [place] - [facility] 12/09/2024 13:46:39 OBGyn Episode No OBEpisode recorded.
[2024-12-15 12:12] LABS: Hematocrit 44.1 % (37.0-47.0); Hemoglobin 14.8 g/dL (12.2-16.2); Mean Corpuscular HGB Conc 33.6 g/dL (31.8-35.4); Mean Corpuscular Hemoglobin 29.8 pg (27.0-31.2); Mean Corpuscular Volume 88.9 fl (81-99); Nucleated Red Blood Cells % 0 %; Platelet Count 237 K/mm3 (142-424); Red Blood Count 4.96 M/mm3 (4.20-5.40); Red Cell Distribution Width-SD 51.1 fL; White Blood Count 11.8 K/mm3 (4.8-10.8)
[2024-12-15 13:05] LABS: Alanine Aminotransferase 24 U/L (12-78); Albumin Level 3.9 g/dl (3.5-5.0); Albumin/Globulin Ratio 1.5 (1.1-1.8); Alkaline Phosphatase 86 U/L (38-126); Anion Gap 14.5 mEq/L (5-15); Aspartate Amino Transferase 33 U/L (14-36); Bilirubin,Total 0.7 mg/dl (0.2-1.3); Blood Urea Nitrogen 60 mg/dl (7-17); Calcium 8.8 mg/dl (8.4-10.2); Carbon Dioxide 28 mmol/L (22.0-30.0); Chloride 97 mmol/L (98-107); Cholesterol 159 mg/dl (140-200); Creatinine,Serum 2.20 mg/dl (0.52-1.04); Estimated Glomerular Filt Rate 22 ml/min (>60); GFR (African American) 26 ML/MIN (>60); Globulin 2.6 g/dL (1.3-3.2); Glucose 191 mg/dl (74-100); HDL Cholesterol 39 mg/dl (40-60); Phosphorous 4.3 mg/dl (2.5-4.5); Potassium 4.5 mmoL/L (3.5-5.1); Sodium 135 mmol/L (136-145); Total Protein,Serum 6.5 g/dl (6.3-8.2); Triglycerides 316 mg/dl (30-150)
[2024-12-15 13:22] LABS: 25-OH Vitamin D, Total 32.0 ng/mL (30-100)
[2024-12-31 15:08] LABS: Serial Monitoring PDF SCANNED IMAGE
== END 2024-12-15 23:59 | disposition home or self-care (01) ==
PROVIDERS: Nurse Practitioner; PCP Nurse Practitioner Family; Visit Provider Nurse Practitioner Family
DX: N18.4 Chronic kidney disease, stage 4 (severe) (principal)
CPT/HCPCS: 36415; 80053; 80061; 80069; 82306; 83970; 84080; 85027

== ENCOUNTER 2024-12-28 10:32 | Outpatient (CLI) | payer MEDICARE, OTHER, SELFPAY ==
--- OUTSIDE RECORDS SUMMARY | 2024-12-17 12:00 | XMS_ITS | Encounter Summary ---
Author Organization Healthcare Address [address] [place] [address] Care Team Providers Care Clinical Research Spec Name Role Phone Roman King GAMA Primary Care Provider +1- [phone] Reason for Referral * Consultation (Routine) - Authorized Specialty Diagnoses / Procedures Referred By Danyelle t Referred To Contact Diagnoses CKD (chronic kidney disease) stage 4, GFR 15-29 ml/min ([facility]) Isabel Womack APRN [address] [address] Phone: tel: fax: Referral ID Status Reason Start Date Expiration Date V isits Requested Visits Authorized [id number] Authorized 12/17/2024 06/18/2026 1 1 Reason for [...] Description 12/17/2024 12:00 PM EDT Office Visit [facility] [address] [place] [address] Isabel Womack APRN [address] [address] CKD (chronic kidney disease) stage 4, GFR 15-29 ml/min ([facility]) (Primary Dx); Diabetes mellitus due to underlying condition with diabetic chronic kidney disease, unspecified CKD stage, unspecified whether half-way insulin use ([facility]); Essential hypertension; Persistent proteinuria; Recurrent UTI Social [...] and EDIN episodes, here forfollowup in the [place] [facility]. DM control on her insulin [...] documented in this encounter Plan of Treatment Scheduled Orders Name Type Priority Associated Diagnoses [...] disease) stage 4, GFR 15-29 ml/min (CMS/HCC) 1 Occurrences starting 12/17/2024 until 01/17/2026 documented as of this encounter Visit Diagnoses Diagnosis CKD (chronic kidney disease) stage 4, GFR 15-29 ml/min (CMS/HCC)- Primary Chronic kidney disease, Stage IV (severe) Diabetes mellitus due to underlying condition with diabetic chronic kidney disease, unspecified CKD stage, unspecified whether half-way insulin use ([facility]) Essential hypertension Unspecified essential hypertension Persistent proteinuria Recurrent UTI Urinary tract infection, site not specified documented in this encounter Additional Health Concerns Assessment Noted Time A fall risk assessment has been complete d for the patient 08/11/2023 12:00 PM EST A Body Mass Index follow-up plan has been documented for the patient 12/17/2024 12:34 PM EDT documented as of this encounter Care Teams Clinical Research Spec Relationship Specialty Start Date End Date Roman King APRN [address] [place] [address] PCP - General 01/21/22 documented as of this encounter
--- OUTSIDE RECORDS SUMMARY | 2024-12-21 13:40 | XMS_ITS | Encounter Summary ---
Author Organization [place] [address] Care Team Providers Care Banana Expert Name Role Phone RuslanRoman Primary Care Provider [phone] [phone] Reason for Referral * MRI/CAT Scan (Routine) - Pending Review Specialty Diagnoses / Procedures Referred By Danyelle balderrama Referred To Contact Radiology Diagnoses Gait instability Frequent falls Procedures MRI BRAIN WO CONTRAST Lisa Serrano DO [address] [facility] [address] [place] [address] Phone: tel: fax: Referral ID Status Reason Start Date Expiration Date V isits Requested Visits Authorized [id number] Pending Review 12/21/2024 12/21/2025 1 1 Reason for Visit * Reason Comments Hospital Follow Up Here alone - has his tory of falling frequently. States she has had balance issues for a few years now. Gait Problem Loss of Consciousness Had recent occurre nce of syncope while she was seeing another doctor. She states she was out for 40 minutes. Saw group account director yesterday. * Consultation (Routine) - Authorization Not Needed Specialty Diagnoses / Procedures Referred By Danyelle balderrama Referred To Contact Diagnoses Syncope and collapse Roman King, [address] [place] [address] Phone: tel: fax: [facility] [place] [address] [place] [address] Phone: tel: Referral ID Status Reason Start Date Expiration Date Visits Requested Visits Authorized [id number] Authorization Not Needed 11/30/2024 11/30/2025 1 1 Encounter Details Date Type Department Care Team (Nimo st Contact Info) Description 12/21/2024 1:40 PM EDT Office Visit [facility] Neurology [facility] [address] [facility] [place] [address] Lisa Serrano, DO [address] [place] [address] Gait instability (Primary Dx); Frequent [...] states she was out for 40minutes. Saw group account director yesterday. HPI: Jillian Robert is a 74 [...] up following up with Dr. Jean-Baptiste- in [place] and states he told her it was [...] EMS was called, she was taken to [facility] [place] fine when she got here, states she [...] artery biopsy; Surgeon: Bam Quintana DO; Location: [facility] MAIN OR; Service: General SECTION CORONARY ARTERY BYPASS GRAFT GALLBLADDER SURGERY LUMBAR FUSION N/A 08/14/2022 L5/S1 ANTERIOR LUMBAR INTERBODY FUSION; Surgeon: Ki Lawson MD; Location: [facility] MAIN OR; Service: Neurosurgery SHOULDER SURGERY [...] SOLOMON 14 DAY READER) Misc Misc by [facility].(Non-Drug; Combo Route) route. gabapentin (NEURONTIN) 600 mg [...] 1/4 bilateral patellar, 1/4 bilateral Achilles. Coordination: [id number] and rapid alternating movements intact. No dysmetria [...] 310 11/30/2022 Lab Results Component Value Date [id number] 1,594 (H) 11/26/2022 A1C 8.9 ( @ [...] rooms, so use additional caution in those settings.group home paraprofessional throw-rugs to avoid additional falls. You may [...] documented as of this encounter Care Teams Banana Expert Relationship Specialty Start Date End Date Roman Mercer [address] [place] [phone] PCP - General Family Medicine 04/24/20 documented as of this encounter
--- OUTSIDE RECORDS SUMMARY | 2024-12-28 10:36 | XMS_ITS | Continuity of Care Document ---
Author Organization Unknown Allergies, Adverse Reactions, Alerts Substance Reaction Status codeine Active lisinopril Active OxyContin Active cephalexin Active Macrobid Active Medications Start Date End Date Medication Signa 20240714 fosfomycin 3 g g ranule for reconstitution Administer 1 each orally once 20517176 Icosapent Ethyl 1 g capsule Take 2 cap(s) orally 2 times a day 01872246 rosuvastatin 40 mg tablet Ta ke 1 tab(s) orally once a day 46138807 allopurinol 100 mg oral tablet 100 mg oral tablet Take 100 milligrams oral once a day 54061024 Synthroid 112 mcg (0.112 mg) tablet Take 1 tab(s) orally once a day 69782111 venlafaxine 75 m g capsule, extended release Take 1 cap(s) orally once a day 79571660 carvedilol 25 mg tablet Take 1 tab(s) orally 2 times a day 99871960 omeprazole 40 mg delayed release capsule Take 1 cap(s) orally once a day 40415378 gabapentin 600 mg tablet Juan e 1 tab(s) orally 3 times a day 11946962 insulin lispro 1 00 units/mL solution Inject Unit units by injection into the soft tissue Prn as needed; Dependent on blood sugar Problems Type Code Description Effective Start Effective End Onset/Exacerbation Date Primary E11.21 Type 2 diabetes mellitus with diabetic nephropathy 20240712 Other W19.XXXD Unspecified fall ` subsequent encounter 20240712 Other R26.89 Other abnormalities of gait and mobility 2024071250203 Other R29.6 Repeated falls 85443808 53673 Other I25.10 Athscl heart disease of [place] coronary artery w/o ang pctrs 2024071250203 Other I10 Essential (primary) hypertension 2024071250203 Other Z79.4 assisted (current) use of insulin 2024071250203 Other Z87.440 Personal history of urinary (tract) infections 2024071250203 Other Z95.1 Presence of aortocoronary bypass graft 20240712 Other Z91.81 History of falling 20240712 2 3121463 Unknown E11.21 Type 2 diabetes mellitus with diabetic nephropathy 20240712 Unknown R26.89 Other abnormalities of gait and mobility 20240712 Unknown I10 Essential (primary) hypertension 20240712 Insurance Providers Payer Name Policy type / Covera ge type Policy ID Covered Republican ID Policy Elena Patient Responsibility Patient Responsib ility (2017 - ) [id number] Jillian Robert [place] (2017 - ) [id number] Jillian Robert
--- OUTSIDE RECORDS SUMMARY | 2024-12-28 10:37 | XMS_ITS | Clinical Summary ---
Author Organization [facility] Address [address] [facility] [address] [place] [phone] Phone Care Team Providers Care Endocrinology Specialist Name Role Phone Roman Mercer Primary Care Provider [phone] Allergies Active Allergy Reactions Criticality Noted Date Comments Codeine Other (See Comments) Low 11/30/2012 over sedation Cephalexin Other (See Comments) Low 11/25/2022 hypertension Levofloxacin Hives,Nausea Only Medium 12/17/2024 Nitrofurantoin Hives Medium 11/19/2012 Oxycodone-Acetaminophen Other (See [...] sliding scale. Active flash glucose scanning reader (FREESTYLE SOLOMON 14 DAY READER) Misc Misc by Mis.(Non-Drug; Combo Route) route. Active aspirin 81 mg Oral Tablet, Chewable Take 1 Tablet by mouth daily. 3 Active acetaminophen (TYLENOL) 500 mg Oral Tablet Take 2 Tablets by mouth every 6 hours. 3 Active Additional Information Patient not taking.Reason: Pt electing to not take the medication, Informant: Self/Patient, Reported on 12/21/2024 amoxicillin-clav ulanate (AUGMENTIN) 875-125 mg Oral Tablet TAKE ONE TABLET BY MOUTH EVERY TWELVE HOURS FOR 10 DAYS -- FINISH ALL MEDICINE -- Active estradioL (ESTRACE) 0.01 % (0.1 mg/gram) Vagl Cream 3 Active gentamicin (GARAMYCIN) 0.1 % Top Cream APPLY TOPICALLY TO THE AFFECTED AREA(S) TWICE DAILY FOR infection Active ondansetron (ZOFRAN-ODT) 4 mg Oral Tablet, Rapid Dissolve Dissolve 4 mg by mouth. 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 Ptosis [...] 04/24/2020 Primary hypothyroidism 04/24/2020 Mixed hyperlipidemia 04/24/2020 Encounters Date Type Department Care Team Description 12/21/2024 1:40 PM EDT Office Visit [facility] Neurology [facility] [address] [place] [address] Lisa Serrano DO Gait instability (Primary Dx); Frequent falls; Diabetic peripheral neuropathy (HCC); Vasovagal syncope 12/21/2024 Telephone [facility] Neurology [facility] [address] [place] [address] Lisa Serrano DO [facility] rec request) from Last 3 Months Surgical History Surgery Date Site/Laterality Comments SECTION GALLBLADDER SURGERY APPENDECTOMY CORONARY ARTERY BYPASS GRAFT SHOULDER SURGERY Right LUMBAR FUSION 08/14/2022 Spine/N/A L5/S1 ANTERIOR LUMBAR INTERBODY FUSION; Surgeon: Ki Lawson MD; Location: [facility] MAIN OR; Service: Neurosurgery Medical devices from this surgery are in the Medical Devices section. ARTERY BIOPSY 11/29/2022 Right right temporal artery biopsy; Surgeon: Bam Quintana DO; Location: [facility] MAIN OR; Service: General Medical History Medical [...] F) 12/21/2024 1:25 PM EDT Respiratory Rate 16 11/30/2022 9:09 AM EDT Oxygen Saturation 91% 12/21/2024 1:25 PM EDT Inhaled Oxygen Concentration - - Weight 62.5 kg (137 lb 12.8 oz) 12/21/2024 1:25 PM EDT Height 151.1 cm (4' 11.5 ) 12/21/2024 1:25 PM ED T Body Mass Index 27.37 12/21/2024 1:25 PM EDT Plan of Treatment Health Maintenance [...] 10/14/2024 10/14/2022 Influenza Vaccine (#1) 2025 , 04/25/2023, 02/21/2022, Additional history exists Bone Density Screening Completed 06/18/2023 Hepatitis B Vaccine Aged Out No longe r eligible based on patient's age to complete this topic Meningococcal B Vaccine Aged Out No l onger eligible based on patient's age to complete this topic Medical Devices Implanted Type Area Logistic Manager Device Identifier Shelf Expiration Date Model / Serial / Lot Bilateral Iol Lower Back Metal Cage/ 2 Rods/8 Screws Cervical Fusion Right Shoulder Screws/ Anchors Kt Graft 2.8ml Infs Sm Clara Matrx 2-Tn Bnd 5ml Strl H2o - [id number] Implanted:Qty: 1 on 08/14/2022 by Ki Lawson MD at [facility] Bilateral: Spine Lumbar MEDTRONIC:SOFXIMENAO Ata AMAYAEK 06/09/2024 [id number] / / [id number] Cage Modulus Alif [id number] 10 Degree - [id number] Implanted:Qty: 1 on 08/14/2022 by Ki Lawson MD at [facility] N/A: Spine Lumbar NUVASIVE 08/12/2026 [id number] / / [id number] [place] 3dp Interfixated Alif [id number] 2pk - [id number] Implanted:Qty: 2 on 08/14/2022 by Ki Lawson MD at [facility] N/A: Spine Lumbar NUVASIVE 04/03/2026 [id number] / / [id number] Procedures Procedure Name Priority Date/Time Associated Diagnosis [...] bone density assessment. Study was performed on Twined 5. Bone Density: Region BMD T-score Z-score [...] 06/19/2023 2:13:00 PM. us Ki Lawson MD [facility] DEXA ORDERABLES Final Resu lt * (ABNORMAL) BASIC METABOLIC PANEL (11/30/2022 8:30 AM EDT) Sodium 137 136 - 145 mmol/L 11/30/2022 10:10 AM EDT PREFERRED LAB [facility] Potassium 5.4(H) 3.5 - 5.0 mmol/L 11/30/2022 10:10 AM EDT [facility] Comment:Hemolysis detected b y analyzer. Hemolysis at this level may increase the potassium concentration > 0.1 mmol/L. Recommend recollection if clinically indicated. Chloride 97(L) 98 - 107 mmol/L 11/30/2022 10:10 AM EDT [facility] Total CO2 30(H) 22 - 29 mmol/L 11/30/2022 10:10 AM EDT PREFERRED LAB [facility] Anion Gap 10 7 - 16 mmol/L 11/30/2022 10:10 AM EDT [facility] Calcium 9.3 8.8 - 10.4 mg/dL 11/30/2022 10:10 AM EDT [facility] Glucose Lvl 181(H) 82 - 100 mg/dL 11/30/2022 10:10 AM EDT [facility] BUN 45(H) 8 - 23 mg/dL 11/30/2022 10:10 AM EDT [facility] Creatinine 1.80(H) 0.51 - 1.30 mg/dL 11/30/2022 10:10 AM EDT [facility] eGFR (CKD-EPIcr 2020) 29(L) >=60 mL/min/1. 73 m2 11/30/2022 10:10 AM EDT [facility] Comment:Estimated GFR was ca lculated using the CKD-EPIcr (2020) equation refit without race. The equation is recommended by the National Kidney Foundation - Stateless Society of Nephrology Task Force. Blood VENOUS BLOOD / Unknown Venipuncture / Unknown 11/30/2022 8:30 AM EDT 11/30/2022 9:16 AM EDT Fern Hallman MD CHEMISTRY ORDERABLES Final Result [address] , [place] [address] [facility] [address] [place] [address] * (ABNORMAL) HEMOGLOBIN A1C (11/26/2022 1:59 PM EDT) Hgb A1C 9.7(H) 4.2 - 5.6 % 11/26/2022 3:06 PM EDT [facility] Est. Avg Glucose 232 mg/dL 11/26/2022 3:06 PM EDT [facility] Blood VENOUS BLOOD / Unknown Venipuncture / Unknown 11/26/2022 1:59 PM EDT 11/26/2022 2:05 PM EDT Narrative [facility] - 11/26/2022 3:06 PM EDT REFERENCE RANGE: Normal: 4.0-5.6% Pre-diabetes: 5.7-6.4% Provisional diagnosis of diabetes: >6.4% Hgb F>10% and anything which shortens red cell survival, such as hemolytic anemia, or unstable hemoglobin variants such as HbSS, HbSC, or HbCC, will lower the HbA1c value associated with a given level of glycemic control. us Lisa Serrano DO CHEMISTRY ORDERABLES Fi nal Result PREFERRED [facility] [address] [facility] , [address] [place] [id number] * (ABNORMAL) LIPID SCREEN (11/26/2022 1:59 PM EDT) Cholesterol 143 <200 mg/dL 11/26/2022 3:14 PM EDT [facility] Comment: < 200 Desirable 200 - 239 Borderline High >= 240 High Triglyceride 383(H) <150 mg/dL 11/26/2022 3:14 PM EDT [facility] Comment: < 150 Normal 150 - 199 Borderline High 200 - 499 High >= 500 Very High HDL 29(L) >=40 mg/dL 11/26/2022 3:14 PM EDT [facility] Comment: > 60 Optimal 40 - 60 Acceptable < 40 Low LDL Calculated 56 <100 mg/dL 11/26/2022 3:14 PM EDT [facility] Comment: < 100 Optimal 100 - 129 Near or above optimal 130 - 159 Borderline High 160 - 189 High >= 190 Very High Non-HDL-C Calculated 114 <=129 mg/dL 11/26/2022 3:14 PM EDT [facility] Comment: <130 Desirable 130-159 Above Desirable 160-189 Borderline High 190-219 High >= 220 Very High Fasting Specimen? No None 023 3:14 PM EDT [facility] Blood VENOUS BLOOD / Unknown Venipuncture / Unknown 11/26/2022 1:59 PM EDT 11/26/2022 2:05 PM EDT us Lisa Debbienino BowmanZach DO CHEMISTRY ORDERABLES Fi nal Result [facility]REFERR[facility] [address] [facility] [place] [address] [facility] [address] [place] [address] from Last 3 Months or Most Recently Relevant to Health Maintenance Insurance MEDICARE [place] PART A AND B FOR LIFE FOR LIFE MEDICARE [place] PART A AND B Advance Directives For more information, please contact: [phone] * Full Code (Latest Code Status on File) Date Activated Date Inactivated Comments 11/25/2022 8:31 PM 11/30/2022 5:15 PM * Full Code Date Activated Date Inactivated Comments 08/14/2022 3:40 PM 08/15/2022 8:17 PM Care Teams Endocrinology Specialist Relationship Specialty Start Date End Date Roman Mercer [address] [place] [id number] PCP - General Family Medicine 04/24/20
--- OUTSIDE RECORDS SUMMARY | 2024-12-28 10:37 | XMS_ITS | Encounter Summary ---
Author Organization [place] [address] Care Team Providers Care Artillery Meteorological Man Name Role Phone Roman Mercer Primary Care Provider [phone] Reason for Visit * Reason Onset Date Comments Other 12/21/2024 Chay Jacobs rec request Encounter Details Date Type Department Care Team (Late st Contact Info) Description 12/21/2024 Telephone SEP Neurology [facility] [address] [place] [address] Lisa Serrano DO [address] [place] [address] Other (Chay Jacobs rec request) Social History Tobacco Use Types Packs/Day Years Used Date Smoking Tobacco: Never Passive Smoke Exposure: Past Smokeless Tobacco: Never Alcohol Use Standard Drinks/Week Comments Never 0 [...] on file documented as of this encounter Miscellaneous Notes * Telephone Encounter - Rula Tadeo MA - 12/27/2024 3:18 PM EDT Received medical notes from [facility] for this patient. Place in [place] in-b[place]. * Telephone Encounter - Rula Tadeo MA - 12/21/2024 1:35 PM EDT Sent fax request for medical notes from recent appointments at [facility] Dr. Ming Jacobs Fax confirmation received. documented in this encounter Plan of Treatment Not on file documented as of this encounter Visit Diagnoses Not on filedocumented in this encounter Additional Health Concerns Assessment Noted Time A fall risk assessment has been complete d for the patient 12/21/2024 1:23 PM EDT documented as of this encounter Care Teams Artillery Meteorological Man Relationship Specialty Start Date End Date Roman Mercer [address] [place] [address] PCP - General Family Medicine 04/24/20 documented as of this encounter
--- OUTSIDE RECORDS SUMMARY | 2024-12-28 10:37 | XMS_ITS | Encounter Summary ---
Author Organization Healthcare Address [address] [id number] Care Team Providers Care Green Coffee Blender Name Role Phone Roman King APRN Primary Care Provider [phone] Encounter Details Date Type Department Care Team (Latest Contact Info) Description 12/17/2024 Travel Social History Tobacco Use Types Packs/Day Years Used Date Smoking Tobacco: Never Passive Smoke Exposure: Never Smokeless Tobacco: Never Comments No Sex and Gender Information Value Date Recorded Sex Assigned at Not on file Legal Sex Female 8:37 PM EDT Gender Identity Not on file Sexual Orientation Not on file documented as of this encounter Plan of Treatment Not on [...] documented as of this encounter Care Teams Green Coffee Blender Relationship Specialty Start Date End Date Roman King APRN [address] [place] [address] PCP - General 01/21/22 documented as of this encounter
--- OUTSIDE RECORDS SUMMARY | 2024-12-28 10:38 | XMS_ITS | Clinical Summary ---
Author Organization [facility] Address [address] [place] [address] Care Team Providers Care Monument Letterer Name Role Phone Roman King ASSOCIATE PUBLISHER Primary Care Provider [phone] Allergies Active Allergy Reactions Criticality Noted Date Comments Gilberto Inhibitors Unknown - Patient states they do not know rxn details Low 05/13/2014 Cephalexin Other - please docum ent in the comment field High 11/25/2022 hypertension Codeine Other - please docum ent in the comment field Low 11/30/2012 Levofloxacin Nausea 12/17/2024 Lisinopril Other - please docum ent in [...] Disposable Pump (Omnipod DASH Pods, Gen 4,) [facility] 3 Active Insulin Disposable Pump (Omnipod DASH Pods, Gen 4,) [facility] Omnipod Dash Pods (Gen 4) subcutaneous cartridge [...] HumaLOG) 100 UNIT/ML injection vial 4 Active ampicillin (Principen) 500 MG capsule Take 250 mg by mouth every 6 hours. Active Active Problems Problem Noted Date Diagnosed [...] 11/19/2012 Proteinuria 11/19/2012 Essential (primary) hypertension 11/19/2012 Encounters Date Type Department Care Team Description 12/17/2024 12:00 PM EDT Office Visit [facility] [address] [place] [address] Isabel Womack APRN CKD (chronic kidney disease) stage 4, GFR 15-29 ml/min ([facility]) (Primary Dx); Diabetes mellitus due to underlying condition with diabetic chronic kidney disease, unspecified CKD stage, unspecified whether superintendent marine oil terminal insulin use ([facility]); Essential hypertension; Persistent proteinuria; Recurrent UTI 12/17/2024 Travel from Last 3 Months Immunizations Immunization Administration Dates Next Due Influenza, [...] Mass Index 27.47 12/17/2024 11:52 AM EDT Plan of Treatment Health Maintenance Due Date Last Done Comments [facility]-Depression Screening 1950 [facility]-Diabetes: Hemoglobin A1C 1950 [facility]-Hepatitis C Screening 1950 [facility]-Medicare Annual Wellness (AWV) 1950 [facility]-/Child/Adol SDOH Screenings 1950 Diabetes: Dental Exam 1960 [facility]- SDOH Screenings 1968 [facility]-Adult SDOH Screenings 1968 [facility]-Pneumococcal Vaccine: 50+ Years (1 of 2 - PCV) 1969 CT Colonography 1995 Colonoscopy 1995 FIT-DNA 1995 FIT 1995 FOBT 1995 Sigmoidoscopy 1995 [facility]-Colorectal Cancer Screening 1995 [facility]-Breast Cancer Screening 2000 [facility]-RSV Vaccine: 60+ Years or (1 - Risk 60-74 years 1-dose series) 2010 [facility]-Zoster Vaccines (2 of 3) 06/15/2013 04/20/2013 [facility]-DTaP,Tdap,and Td Vaccines (2 - Td or Tdap) 04/20/2023 04/20/2013 [id number] Vaccine (4 - season) 2024 04/11/2021, 08/31/2020, 08/02/2020 [facility]-Bone Density Scan 06/18/2024 06/18/2023, 024 [facility]-Influenza Vaccine (#1) 02/07/202502/23, 04/25/2023, 02/21/2022, Additional history exists [facility]-Obesity Intervention Completed 025, 04/16/2024, 12/08/2023, Additional history exists HPV Vaccines Aged Out No longer eligi [...] age to complete this topic Insurance MEDICARE [facility] Care Teams Monument Letterer Relationship Specialty Start Date End Date Roman King APRN [address] [place] [address] PCP - General 01/21/22
--- NOTE | 2024-12-28 11:00 | US_ITS ---
FINAL REPORT CLINICAL HISTORY: Symptoms and signs involving the Circulatory System Left great toe wound. FINDINGS: LOWER EXTREMITY SEGMENTAL PRESSURE MEASUREMENTS FINDINGS: Pressure indices are as follows: RIGHT LOWER EXTREMITY: Thigh: 1.13 Calf: 0.52 Ankle, posterior tibial artery: 0.65 Ankle, dorsalis pedis: 0.76 Toe: 0.48 Comments: Findings suspicious of moderate obstructive PVD stenosis/occlusion likely occurring at the level of the distal SFA and popliteal artery. LEFT LOWER EXTREMITY: Thigh: 0.94 Calf: 0.62 Ankle, posterior tibial artery: 0.80 Ankle, dorsalis pedis: 0.94 Toe: 0.15 Comments: Findings suspicious of moderate obstructive PVD stenosis/occlusion likely occurring at the level of the distal SFA and popliteal artery. IMPRESSION: Moderate PVD, likely femoral-popliteal distribution. Reviewed, Interpreted and Dictated by Carmen Piña MD Transcribed by Maris Light Authenticated and . [facility]
== END 2024-12-28 23:59 | disposition home or self-care (01) ==
LOC: RT 10:33
PROVIDERS: PCP Nurse Practitioner Family; Visit Provider Podiatrist
DX: I73.9 Peripheral vascular disease, unspecified (principal)
CPT/HCPCS: 93923

== ENCOUNTER 2025-02-01 11:30 | Outpatient (CLI) | payer MEDICARE, OTHER, SELFPAY ==
--- OUTSIDE RECORDS SUMMARY | 2024-12-17 12:00 | XMS_ITS | Encounter Summary ---
Author Organization Healthcare Address [address] [place] [address] Care Team Providers Care Wine Pasteurizer Name Role Phone Roman King GAMA Primary Care Provider [phone]- [phone] Reason for Referral * Consultation (Routine) - Authorized Specialty Diagnoses / Procedures Referred By Danyelle t Referred To Contact Diagnoses CKD (chronic kidney disease) stage 4, GFR 15-29 ml/min ([facility] Isabel Womack APRN [address] [address] Phone: tel: fax: Referral ID Status Reason Start Date Expiration Date V isits Requested Visits Authorized [id number] Authorized 12/17/2024 06/18/2026 1 1 Reason for Visit * Reason Comments Follow-up Pt is a 74 year old female that presents to the clinic on this date for a follow up for CKD. Pt states she has a dull headache, but she is doing well. Pt states she does have a UTI and she was having some stomach upset on the amplicillin. Pt states she is now taking a half of the 500 mg ampicillin Encounter Details Date Type Department Care Team (Late st Contact Info) Description 12/17/2024 12:00 PM EDT Office Visit [facility] [address] [place] [address] Isabel Womack APRN [address] [address] CKD (chronic kidney disease) stage 4, GFR 15-29 ml/min ([facility]) (Primary Dx); Diabetes mellitus due to underlying condition with diabetic chronic kidney disease, unspecified CKD stage, unspecified whether nursing home insulin use ([facility]); Essential hypertension; Persistent proteinuria; Recurrent UTI Social History Tobacco Use Types Packs/Day Years Used Date Smoking Tobacco: Never Passive Smoke Exposure: Never Smokeless Tobacco: Never Tobacco Cessation:Counseling Given: Not Answered Comments No Sex and Gender Information Value Date Recorded Sex Assigned at Not on file Legal Sex Female 8:37 PM EDT Gender Identity Not on file Sexual Orientation Not on file documented as of this encounter Last Filed Vital Signs Vital Sign Reading Time Taken Comments Blood Pressure 136/72 12/17/2024 11:52 AM EDT Pulse 74 12/17/2024 11:52 AM EDT Temperature - - Respiratory Rate 18 12/17/2024 11:52 AM EDT Oxygen Saturation 96% 12/17/2024 11:52 AM EDT Inhaled Oxygen Concentration - - Weight 61.7 kg (136 lb) 12/17/2024 11:52 AM EDT Height 149.9 cm (4' 11 ) 12/17/2024 11:52 AM EDT Body Mass Index 27.47 12/17/2024 11:52 AM EDT documented in this encounter Miscellaneous Notes * Progress Notes - Isabel Womack APRN - 12/17/2024 12:00 PM EDT SUBJECTIVE Jillian Robert is a 74 y.o. female who presents for follow-up. history of chronic kidney disease related to diabetes, vascular disease, and EDIN episodes, here forfollowup in the [place] [facility]. DM control on her insulin pump and trulicity Continues home BP monitoring. Home readings are well-controlled. Denies dysuria, hematuria, abd pain, NVD, CP, SOA, or edema. UTI symptoms resolved off Jardiance Doing well today, no active concerns, home BP <130SBP Off insulin pump, now using Omni, feels DM control is better 01/21/22 Right hip pain, no trauma, likely SI joint inflammation On UTI treatment for four weeks, no symptoms, pending urology Episodes of vision loss, unclear if DM related, will see neurology and have MRI, also encouraged toget eye exam and pressures checked 07/29/22 Saw neurology and had imaging, no source of vision loss, will see eye provider No further UTI issues Pending back surgery, ?fusion, now depends on walker; helps with most Adls 01/27/23 Recent recurrent UTIs, A1C >9. Currently asymptomatic, feeling stronger 08/11/23 No UTI in the last 3 months. Started on Fosamax per PCP No hospitalizations or additional medication changes Unsure most recent A1C 12/08/23 Notes had an episode at home and her could not wake her She was not herself. Testing completed at ED unremarkable. Currently feels normal state of health 04/16/24 Feeling well. BP improved, no additional dizzy spells Appetite good, no edema 12/17/24 Notes recent frequent UTIs. Has not seen Urology but has an appointment in February. Recent antibiotic change due to GI symptoms. No urinary symptoms. Notes otherwise feeling well. OBJECTIVE Vitals: 12/17/24 1152 BP: 136/72 Pulse: 74 Resp: 18 SpO2: 96% PHYSICAL EXAMINATION CONSTITUTIONAL: Conversant, well developed, NAD. EYES: No proptosis or lid-lag. EARS: Normal hearing. RESPIRATORY: Normal respiratory effort. CARDIOVASCULAR: No peripheral edema. EXTREMITIES: No edema. No cyanosis. SKIN: No rash. No lesions. No ulcers. MUSCULOSKELETAL: Normal gait and station with rolling walker; No digital cyanosis. NEURO: Cranial nerves II-XII grossly intact. LAB RESULTS Labs drawn 12/09/24, results reviewed with patient and scanned into media tab 1. Chronic kidney disease stage 3b/4 secondary to diabetes and hypertension, creat baseline 1.8- 2.1; slightly elevated at 2.2, 1.9 11/2024. 2. Hypertension. BP lower than goal 3. Vitamin D deficiency. 5000 units daily, level stable 4. Renal osteodystrophy; ca/phos stable 5. History of proteinuria secondary to diabetes, h/o diffuse rash with lisinopril, BP well controlled, had side effect with amlodipine 6. DM2, continue insulin, intolerant to SGLT2i- strongly encouraged improved glucose control 7. Osteoporosis,- 8. Recurrent UTIs- Urology, estrace cream, no recent UTI Renal function sllightly above baseline. Possible normal fluctuation vs EDIN r/t UTIs/antibiotics vsdisease progression. Will monitor closely with RTC in 4 months. . BP stable 120s at home. Encouraged increase glucose control A1c goal less than 7 documented in this encounter Plan of Treatment Upcoming Encounters Date Type Department Care Team (Late st Contact Info) Description 04/22/2025 10:40 AM EST Office Visit [facility] [address] [place] [address] Isabel Womack APRN [address] [facility] [address] [place] [address] Scheduled Orders Name Type Priority Associated Diagnoses Orde r Schedule CBC W/O Differential Lab Routine CKD (chronic kidney disease) stage 4, GFR 15-29 ml/min (CMS/HCC) Expected: 12/17/2024 (Approximate), Expires: 06/19/2026 PTH Intact Total Lab Routine CKD (chronic kidney disease) stage 4, GFR 15-29 ml/min (CMS/HCC) Expected: 12/17/2024 (Approximate), Expires: 06/19/2026 Protein, Random, Urine with Creatinine Lab Routine CKD (chronic kidney disease) stage 4, GFR 15-29 ml/min (CMS/HCC) Expected: 12/17/2024 (Approximate), Expires: 06/19/2026 Renal Function Panel, Plasma Lab Routine CKD (chronic kidney disease) stage 4, GFR 15-29 ml/min (CMS/HCC) Expected: 12/17/2024 (Approximate), Expires: 06/19/2026 Urinalysis with reflex microscopic (Culture NOT Included) Lab Routine CKD (chronic kidney disease) stage 4, GFR 15-29 ml/min (CMS/HCC) Expected: 12/17/2024 (Approximate), Expires: 06/19/2026 Vitamin D 25 Hydroxy Lab Routine CKD (chronic kidney disease) stage 4, GFR 15-29 ml/min (CMS/HCC) Expected: 12/17/2024 (Approximate), Expires: 06/19/2026 Scheduled Referrals Name Type Priority Associated Diagnoses Order Schedule Follow Up Nephrology Outpatient Referral Routine CKD (chronic kidney disease) stage 4, GFR 15-29 ml/min ([facility]) 1 Occurrences starting 12/17/2024 until 01/17/2026 documented as of this encounter Visit Diagnoses Diagnosis CKD (chronic kidney disease) stage 4, GFR 15-29 ml/min ([facility])- Primary Chronic kidney disease, Stage IV (severe) Diabetes mellitus due to underlying condition with diabetic chronic kidney disease, unspecified CKD stage, unspecified whether termite control servicer insulin use ([facility]) Essential hypertension Unspecified essential hypertension Persistent proteinuria Recurrent UTI Urinary tract infection, site not specified documented in this encounter Additional Health Concerns Assessment Noted Time A fall risk assessment has been complete d for the patient 08/11/2023 12:00 PM EST A Body Mass Index follow-up plan has been documented for the patient 12/17/2024 12:34 PM EDT documented as of this encounter Care Teams Wine Pasteurizer Relationship Specialty Start Date End Date Roman King APRN [address] [place] [address] PCP - General 01/21/22 documented as of this encounter
--- OUTSIDE RECORDS SUMMARY | 2024-12-21 13:40 | XMS_ITS | Encounter Summary ---
Author Organization [place] [address] Care Team Providers Care Drill Setup Operator Name Role Phone RulsanRoman Primary Care Provider [phone] [phone] Reason for Referral * MRI/CAT Scan (Routine) - Pending Review Specialty Diagnoses / Procedures Referred By Danyelle balderrama Referred To Contact Radiology Diagnoses Gait instability Frequent falls Procedures MRI BRAIN WO CONTRAST Lisa Serrano DO [address] [facility] [address] [place] [address] Phone: tel: fax: Referral ID Status Reason Start Date Expiration Date V isits Requested Visits Authorized [id number] Pending Review 12/21/2024 12/21/2025 1 1 Reason for Visit * Reason Comments Hospital Follow Up Here alone - has his tory of falling frequently. States she has had balance issues for a few years now. Gait Problem Loss of Consciousness Had recent occurre nce of syncope while she was seeing another doctor. She states she was out for 40 minutes. Saw toys and games hand finisher yesterday. * Consultation (Routine) - Authorization Not Needed Specialty Diagnoses / Procedures Referred By Danyelle balderrama Referred To Contact Diagnoses Syncope and collapse Roman King, [address] [place] [address] Phone: tel: fax: [facility] [place] [address] [place] [address] Phone: tel: Referral ID Status Reason Start Date Expiration Date Visits Requested Visits Authorized [id number] Authorization Not Needed 11/30/2024 11/30/2025 1 1 Encounter Details Date Type Department Care Team (Nimo st Contact Info) Description 12/21/2024 1:40 PM EDT Office Visit [facility] Neurology CV [address] [place] [address] Lisa Serrano, DO [address] [place] [address] Gait instability (Primary Dx); Frequent falls; Diabetic peripheral neuropathy (HCC); Vasovagal syncope Social History Tobacco Use Types Packs/Day Years Used Date Smoking Tobacco: Never Passive Smoke Exposure: Past Smokeless Tobacco: Never Tobacco Cessation:Counseling Given: Not [...] Sign Reading Time Taken Comments Blood Pressure 108/62 12/21/2024 1:25 PM EDT Pulse 72 12/21/2024 1:25 PM EDT Temperature 36.3 C (97.3 F) 12/21/2024 1:25 PM EDT Respiratory Rate - - Oxygen Saturation 91% 12/21/2024 1:25 PM EDT Inhaled Oxygen Concentration - - Weight 62.5 kg (137 lb 12.8 oz) 12/21/2024 1:25 PM EDT Height 151.1 cm (4' 11.5 ) 12/21/2024 1:25 PM ED T Body Mass Index 27.37 12/21/2024 1:25 PM EDT documented in this encounter Progress Notes * Lisa Serrano, - 12/21/2024 1:40 PM EDT Neurology Consult - [facility] Neu[facility] Chief Complaint Patient presents with Hospital Follow Up Here alone - has history of falling frequently. States she has had balance issues for a few years now. Gait Problem Loss of Consciousness Had recent occurrence of syncope while she was seeing another doctor. She states she was out for 40minutes. Saw toys and games hand finisher yesterday. HPI: Jillian Robert is a 74 y.o. female seen in neurologic follow up. Last seen by me in the hospital in November 2022 after presenting with R ptosis/EOM impairment in the setting of headache, double v ision and nausea. MRI brain and CTA H/N WNL. 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 Did under go TA biopsy which was negative. [facility] Ab's were negative. She was to follow up with [facility]. Ended up following up with Dr. 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 She has since recovered. Now referred for new complaint of syncope and frequent falls. States she went for wellness check. Was feeling lightheaded like her sugar was dropping. Was digging in her purse for something and then was trying to give her crackers but she was too weak to eat them and then had a LOC. She rememers people around her but they were far off sounding and she couldn't really respond normally. No lateralizing symptoms or seizure activity reported. No tongue biting or incontinence. States her sugar was 157. States her BP 70/50 which is abnormally low for her. States they started IV's, put her on O2. EMS was called, she was taken to [facility]. [place] fine when she got here, states she had EKG, labs and was all WNL. She saw cardio yesterday- has some testing planned but states she was told there it also was likely due to her BP. Also states she loses her balance easily and falls. Last fall was 2 nights ago. Uses walker at all times. Falls occurred when she didn't have walker. Once was trying to sit down at picnic table, lostbalance when she picked up leg to go over bench. Does have hx of lumbar fusion with Dr. Lawson in 2022 due to intractable low back pain and leg pain. States she recovered well from surgery, hasn't had any further issues. Rare back pain with bending over. She is diabetic. Did PT with improvement gait/balance, states insurance quit covering, she would like to do again. Past Medical History: Diagnosis Date Anesthesia-slow to wake Arthritis CAD (coronary artery disease) Colon polyp Diabetes mellitus (HCC) Encounter for blood transfusion Heartburn High blood pressure Thyroid disease TIA (transient ischemic attack) x 2- 2019, no deficits Past Surgical History: Procedure Laterality Date APPENDECTOMY ARTERY BIOPSY Right 11/29/2022 right temporal artery biopsy; Surgeon: Bam Quintana DO; Location: [facility] MAIN OR; Service: General SECTION CORONARY ARTERY BYPASS GRAFT GALLBLADDER SURGERY LUMBAR FUSION N/A 08/14/2022 L5/S1 ANTERIOR LUMBAR INTERBODY FUSION; Surgeon: Ki Lawson MD; Location: [facility] MAIN OR; Service: Neurosurgery SHOULDER SURGERY Right Current Outpatient Medications on File Prior to Visit Medication Sig Dispense Refill allopurinoL (ZYLOPRIM) 100 mg Oral Tablet Take 1 Tab by mouth daily. amoxicillin-clavulanate (AUGMENTIN) 875-125 mg Oral Tablet TAKE ONE TABLET BY MOUTH EVERY TWELVE HOURS FOR 10 DAYS -- FINISH ALL MEDICINE -- aspirin 81 mg Oral Tablet, Chewable Take 1 Tablet by mouth daily. carvediloL (COREG) 25 mg Oral Tablet Take 1 Tab by mouth 2 times daily. estradioL (ESTRACE) 0.01 % (0.1 mg/gram) Vagl Cream flash glucose scanning reader (FREESTYLE SOLOMON 14 DAY READER) Misc Misc [place] [facility] [place]; Combo Route) route. gabapentin (NEURONTIN) 600 mg Oral Tablet Take 1 Tab by mouth 3 times daily. (Patient taking differently: Take 600 mg by mouth daily.) gentamicin (GARAMYCIN) 0.1 % Top Cream APPLY TOPICALLY TO THE AFFECTED AREA(S) TWICE DAILY FOR infection insulin lispro (HUMALOG) 100 unit/mL SubQ Solution Humalog U-100 Insulin 100 unit/mL subcutaneous solution insulin, pump subcutaneous Misc Misc Subcutaneous (Inject under the skin) continuous. Omnipod pump Basal rate 2.5units/hour from 3 am to 12:00 pm, 12:00 pm to 3 am 1.85 units/hour- patient gives bolus per sliding scale. LEVOthyroxine (SYNTHROID) 112 mcg Oral Tablet Take 1 Tab by mouth daily. MINIMED QUICK SET 32 Misc Infusion Set Change infusion set every 72 hours as directed. Dx E11.65 30 Each 3 omeprazole (PRILOSEC) 40 mg Oral Capsule, Delayed Release(E.C.) Take 1 Cap by mouth daily. ondansetron (ZOFRAN-ODT) 4 mg Oral Tablet, Rapid Dissolve Dissolve 4 mg by mouth. PARADIGM RESERVOIR 3 mL Misc Misc Change every 72 hours as directed. Dx E11.65 30 Each 3 rosuvastatin (CRESTOR) 40 mg Oral Tablet Take 1 Tab by mouth daily. VASCEPA 1 gram Oral Capsule Take 2 Caps by mouth 2 times daily. venlafaxine (EFFEXOR-XR) 75 mg Oral Capsule, Sust. Release 24 hr Take 1 Cap by mouth daily. acetaminophen (TYLENOL) 500 mg Oral Tablet Take 2 Tablets by mouth every 6 hours. (Patient not taking: Reported on 12/21/2024) traMADoL (ULTRAM) 50 mg Oral Tablet TAKE ONE TABLET BY MOUTH EVERY 6 HOURS MAY CAUSE DROWSINESS (Patient not taking: Reported on 12/21/2024) No current facility-administered medications on file prior to visit. Social History Socioeconomic History Marital status: Spouse name: Not on file Number of children: Not on file Years of education: Not on file Highest education level: Not on file Occupational History Not on file Tobacco Use Smoking status: Never Passive exposure: Past Smokeless tobacco: Never Vaping Use Vaping status: Never Used Substance and Sexual Activity Alcohol use: Never Drug use: Never Sexual activity: Not on file Other Topics Concern Not on file Social History Narrative Not on file Social Drivers of Health Financial Resource Strain: Low Risk (11/28/2022) Overall Financial Resource Strain (CARDIA) Difficulty of Paying Living Expenses: Not hard at all Food Insecurity: No Food Insecurity (11/28/2022) Hunger Vital Sign Worried About Running Out of Food in the Last Year: Never true Ran Out of Food in the Last Year: Never true Transportation Needs: No Transportation Needs (11/28/2022) PRAPARE - Transportation Lack of Transportation (Medical): No Lack of Transportation (Non-Medical): No Physical Activity: Inactive (11/28/2022) Exercise Vital Sign Days of Exercise per Week: 0 days Minutes of Exercise per Session: 0 min Stress: Not on file Social Connections: Not on file Intimate Partner Violence: Not on file Housing Stability: Not on file Family History Problem Relation Age of Onset Arthritis Mother Stroke Mother Kidney Disease Mother Diabetes Mother Heart Disease Mother Cancer Mother uterine/breast High Blood Pressure Father Heart Disease Father Unknown Father lungs black from tractor exhaust Diabetes Brother Anesth Problems Neg Hx Review of Systems All systems reviewed and negative except as per HPI. Please see scanned image for details. Physical Exam Vitals: 12/21/24 1325 BP: 108/62 Pulse: 72 Temp: 97.3 ??F (36.3 ??C) SpO2: 91% Body mass index is 27.37 kg/m??. Gen: Well developed, well nourished, no acute distress HEENT: NC/AT. Cardiovascular: Regular rate and rhythm, no murmurs/rubs/gallops, no carotid bruits noted Resp: Clear to auscultation bilaterally, no wheezes/rales/rhonchi. Abd: Soft, non-tender, non-distended Ext: No cyanosis, clubbing, or edema Neurology Exam Mental Status: Alert, oriented to person, place, and date. Attention and concentration normal. Fundof knowledge appropriate for age. Recent and remote memory intact. Language: Speech fluent. Able to name and repeat without difficulty. Follows commands without difficulty. Cranial Nerves: II: Visual maki full to confrontation. Pupils 2 to 1mm OU. III, IV, : EOMI. No nystagmus V: Facial sensation symmetric to light touch and pinprick VII: Facial movements symmetric, smile symmetric VIII: Hearing intact to finger rub bilaterally IX, X: Palate raises midline, no uvula deviation XI: Shoulder shrug symmetric XII: Tongue protrudes midline Motor: 5/5 strength in all 4 extremities. Normal muscle bulk. Tone is normal in all 4 extremities. No tremor or cogwheel rigidity. Sensation:intact to LT. Reduced to vib at the ankles bilaterally. Reflexes: 2/4 bilateral biceps, triceps, brachioradialis. 1/4 bilateral patellar, 1/4 bilateral Achilles. Coordination: Vypeqb-yl-ohqf and rapid alternating movements intact. No dysmetria or dysdiadochokinesia. Station and Gait: has rolling walker- did not ambulate due to fall risk Imaging and Labs: Lab Results Component Value Date NA 137 11/30/2022 K 5.4 (H) 11/30/2022 CL 97 (L) 11/30/2022 CO2 30 (H) 11/30/2022 BUN 45 (H) 11/30/2022 CREATININE 1.80 (H) 11/30/2022 Lab Results Component Value Date WBC 12.2 (H) 11/30/2022 RBC 4.37 11/30/2022 HGB 11.3 11/30/2022 HCT 35.6 11/30/2022 MCV 81.5 11/30/2022 PLT 310 11/30/2022 Lab Results Component Value Date [id number] 1,594 (H) 11/26/2022 A1C 8.9 ( @ PCP's office per patient) Lab Results Component Value Date HGBA1C 9.7 (H) 11/26/2022 HGBA1C 9.1 (H) 08/08/2022 HGBA1C 9.5 (H) 04/24/2020 Assessment and Plan: Jillian Robert is a 74 y.o. female seen in neurologic assessment on 12/22/24. Syncope- most consistent with vasovagal event with noted low BP. No seizure activity reported. Defer further work up/management to PCP/cardio. Diabetic PN- likely contributes to sensory ataxia leading to falls. Recommend ongoing use of walker, discussed neuropathy precautions and tight control of blood sugars. Gait instability- likely due to # 2 however will check MRI brain to ensure no structural etiology. She prefers to continue learned exercises from PT but will call if referral is desired. She will be notified with any abnormal findings and is aware to call with concern. I will otherwisesee her back prn. All questions were answered satisfactorily. Thank you for allowing me to participate in the care of Jillian Robert. Please do no hesitate to contact me with any further questions or concerns. Lisa Serrano DO 12/22/24 7:27 AM documented in this encounter Miscellaneous Notes * Patient Instructions - Lisa Serrano DO - 12/21/2024 1:40 PM EDT Treatment Plan Passing out -We will request PCP notes -Most likely syncopal episode from drop in blood pressure. Defer to PCP and/or cardiology. Gait instability/fall -Likely due to neuropathy from diabetes, continue tight blood sugar control -Use walker at all times -MRI brain -Continue exercise from physical therapy -Be aware that you do not feel the ground well with your feet due to your peripheral neuropathy. You may feel more off-balance at night or in dark rooms, so use additional caution in those settings.air cargo ground crew supervisor throw-rugs to avoid additional falls. You may be contacted by mail or e-mail to participate in a patient satisfaction survey regarding your office visit today. We value your opinion and depend on your feedback to make improvements and provide you with the best possible experience while receiving high quality medical treatment. Your time in completing this survey is greatly appreciated. documented in this encounter Plan of Treatment Scheduled Orders Name Type Priority Associated Diagnoses Orde r Schedule MRI BRAIN WO CONTRAST Imaging Routine Gait instability Frequent falls 1 Occurrences starting 12/21/2024 until 12/21/2025 documented as of this encounter Visit Diagnoses Diagnosis Gait instability- Primary Abnormality of gait Frequent falls Personal history of fall Diabetic peripheral neuropathy (HCC) Type II or unspecified type diabetes mellitus with neurological manifestations, not stated as uncontrolled Vasovagal syncope Syncope and collapse documented in this encounter Historical Medications * This list may reflect changes made after this encounter. ondansetron (ZOFRAN-ODT) 4 mg Oral Tablet, Rapid Dissolve Dissolve 4 mg by mouth. 10/05/2024 gentamicin (GARAMYCIN) 0.1 % Top Cream APPLY TOPICALLY TO THE AFFECTED AREA(S) TWICE DAILY FOR infection estradioL (ESTRACE) 0.01 % (0.1 mg/gram) Vagl Cream 01/27/2023 amoxicillin-clav ulanate (AUGMENTIN) 875-125 mg Oral Tablet TAKE ONE TABLET BY MOUTH EVERY TWELVE HOURS FOR 10 DAYS -- FINISH ALL MEDICINE -- added in this encounter Additional Health Concerns Assessment Noted Time A fall risk assessment has been complete d for the patient 12/21/2024 1:23 PM EDT documented as of this encounter Care Teams Drill Setup Operator Relationship Specialty Start Date End Date Roman [place] [address] [place] [id number] PCP - General Family Medicine 04/24/20 documented as of this encounter
--- OUTSIDE RECORDS SUMMARY | 2025-02-02 13:14 | XMS_ITS | Clinical Summary ---
Author Organization [facility] (Formerly [facility]) Address [address] [place] [id number] Phone Care Team Providers Care Medical Staff Specialist Name Role Phone Maine Patel [phone] Conditions or Problems Problem Name Problem Code Onset Date Status Entry Date Provider Comment Standard Description Annotate PAIN IN HIP, RIGHT M25.551 (ICD-10-CM ) 02/12 Active 02/12 Mainejone Patel Pain in right hip *AFTRCR FOLLOW SRG MUSCULOSKELETAL SYSTEM NEC Z48.89 (ICD-10-CM ) 08/26 Active 08/26 Pat Short MA Encounter for other specified surgical aftercare OVERWEIGHT 182833703 (SNOMED CT) Active Pat Short MA Overweight LUMBAR SPONDYLOLISTHESI S, ACQUIRED, 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 (ICD-10-CM ) Active Ly Joshi DRY FINISHER 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 sis, lumbar region LUMBAR RADICULOPATHY 976601191 (SNOMED CT) Active Dianne Chatterjee MA Lumbar radiculopathy Medications Medication Instructions Start Date Stop Date Generic Name NDC Provider ESTRADIOL 0.1 MG/GM CREA estradiol 22313304669 Flor Colón MYRBETRIQ 25 MG [id number] mirabegron 77193184712 Flor Colón FLUCONAZOLE 150 MG TABS fluconazole 73840628939 Flor Colón OMEPRAZOLE 40 MG CPDR omeprazole 65700082656 Flor Colón VENLAFAXINE HCL ER 75 MG [id number] venlafaxine 98352781999 Flor Colón GNP ADVANCED PROBIOTIC CAPLET 60CT take one caplet BY MOUTH EVERY DAY GNP ADVANCED PROBIOTIC CAPLET 60CT Flor Katarzyna OMNIPOD DASH PODS (GEN 4) USE DIRECTED (CHANGE omnipod every 72 hours) insulin pump cart,cont inf,bt 03148623133 Flor Katarzyna ROSUVASTATIN CALCIUM 40 MG TABS rosuvastatin 51695653182 Flor Colón Vitamin C 500 mg tablet TAKE ONE TABLET BY MOUTH TWICE DAILY ascorbic acid (vitamin c) 80997178628 Flor Colón LEVOTHYROXINE SODIUM 112 MCG TABS levothyroxine 25116791704 Flor Colón INSULIN LISPRO 100 UNIT/ML SOLN insulin lispro 60850735147 Leonid Colón GABAPENTIN 600 MG TABS gabapentin 58559685167 Flor Colón CARVEDILOL 25 MG TABS carvedilol 39566282135 Flor Colón VASCEPA 0.5 GM CAPS icosapent ethyl 59803738229 Flor Colón ALLOPURINOL 100 MG TABS allopurinol 97051546557 Flor Colón OMEPRAZOLE 10 MG CPDR omeprazole 31044135148 Flor Colón VENLAFAXINE HCL 25 MG TABS venlafaxine 66402708805 Flor Colón TRAMADOL HCL 50 MG TABS Take 1 tablet by mouth every six hours as needed for pain tramadol 40790833283 Ki Lawson MD TRAMADOL HCL 50 MG TABS Take 1 tablet by mouth every six hours tramadol 33117058179 Ki Lawson MD TRAMADOL HCL 50 MG TABS tramadol 10226608860 Ly STROUD TRAMADOL HCL 50 MG TABS Take 1 tablet by mouth every six hours as needed for pain tramadol 43163640994 Ly STROUD OMNIPOD DASH PODS (GEN 4) insulin pump cart,cont inf,bt 46985317091 Dianne Chatterjee MA ROSUVASTATIN CALCIUM 40 MG TABS rosuvastatin 23460437782 Dianne Chatterjee MA VASCEPA 1 GM CAPS icosapent ethyl 01521416621 Dianne Chatterjee MA NITROFURANTOIN MONOHYD MACRO 100 MG CAPS nitrofurantoin monohyd/m-cryst 78992158084 Dianne Chatterjee MA CEFDINIR 300 MG CAPS cefdinir 23379576004 Dianne Chatterjee MA LEVOXYL 112 MCG TABS levothyroxine 31682262439 Dianne Chatterjee MA LEVOFLOXACIN 500 MG TABS levofloxacin 97937610623 Dianne Chatterjee MA CEPHALEXIN 500 MG CAPS cephalexin 61258673199 Dianne Chatterjee MA TRAMADOL HCL 50 MG TABS tramadol 42111075512 Dianne Chatterjee MA INSULIN LISPRO 100 UNIT/ML SOLN insulin lispro 51739531395 Dianne hCatterjee MA OMEPRAZOLE 40 MG CPDR omeprazole 53568807703 Dianne Chatterjee MA HYDROCODONE-ACETA MINOPHEN 5-325 MG TABS hydrocodone-acet aminophen 69929117210 Dianne Chatterjee MA ALLOPURINOL 100 MG TABS allopurinol 85187544296 Dianne Chatterjee MA FLUCONAZOLE 150 MG TABS fluconazole 10411216211 Dianne Chatterjee MA OXYBUTYNIN CHLORIDE ER 10 MG [id number]-[id number] oxybutynin chloride 41395285613 Dianne Chatterjee MA GABAPENTIN 600 MG TABS gabapentin 03341165439 Dianne Chatterjee MA CARVEDILOL 25 MG TABS carvedilol 89449271747 Dianne Chatterjee MA VENLAFAXINE HCL ER 75 MG [id number] venlafaxine 00035929881 Dianne Chatterjee MA FLUCONAZOLE 100 MG TABS fluconazole 01172234353 Dianne Chatterjee MA Medications Administered No information [...] Care Type Date Detail Referral Orthopedic Refer [address], [address] Pending order X-Ray Lumbar AP Lateral & [...] Procedures Code Procedure Name Date Entry Date [facility]-[id number] Flu Shot Previously Received [id number] Pneumonia Vaccine Previously Received 02/08/25 SCT-[id number] Medications Documented SCT-[id number] Flu Shot Previously Received SCT-[id number] Pneumonia Vaccine Previously Received 01/05/20 SCT-[id number] Medications Documented SCT-[id number] Pneumonia Vaccine Previously Received 01/03/18 87535 Greater trochanteric bursa injection & follow up with ordering SCT-[id number] Flu Shot Previously Received SCT-[id number] Pneumonia Vaccine Previously Received 29/10/21 SCT-[id number] Medications Documented SCT-[id number] Flu Shot Previously Received SCT-[id number] Pneumonia Vaccine Previously Received 29/09/16 SCT-[id number] Medications Documented SCT-[id number] Flu Shot Previously Received SCT-[id number] Pneumonia Vaccine Previously Received 30/08/19 SCT-[id number] Medications Documented SCT-[id number] Flu Shot Previously Received SCT-[id number] Pneumonia Vaccine Previously Received 01/08/02 SCT-[id number] Medications Documented SCT-[id number] Flu Shot Previously Received [facility]-[id number] Pneumonia Vaccine Previously Received 30/05/02 [facility]-[id number] Medications Documented [facility]-[id number] Flu Shot Previously Received [facility]-[id number] Medications Documented [facility]-[id number] Pneumonia Vaccine Previously Received 30/03/21 Vital Signs Date Name Value Unit Description BMI (Body Mass Index) 27.34 kg/m2 Bod y Mass Index (Ratio) Height 60 [in_us] height E&M Weight Measured 140 [lb_av] weight E& M Weight Measured 140 [lb_av] weight E& M Immunizations No information available. Advance Directives No information available.
--- OUTSIDE RECORDS SUMMARY | 2025-02-02 13:15 | XMS_ITS | Encounter Summary ---
Author Organization [place] [address] Care Team Providers Care Owner Operator Name Role Phone Roman Mercer Primary Care Provider [phone] Reason for Visit * Reason Onset Date Comments Other 12/21/2024 Chay Jacobs rec request Encounter Details Date Type Department Care Team (Late st Contact Info) Description 12/21/2024 Telephone SEP Neurology [facility] [address] [place] [address] Lisa Serrano DO [address] [place] [address] Other (Chay Jacobs rec request) Social History [...] 3:18 PM EDT Received medical notes from [facility] for this patient. Place in ID's in-basket. * Telephone Encounter - Rula Tadeo MA - 12/21/2024 1:35 PM EDT Sent fax request for medical notes from recent appointments at [facility] Dr. Ming Jacobs Fax confirmation received. documented in this encounter Plan of Treatment Not on file documented as of this encounter Visit Diagnoses Not on filedocumented in this encounter Additional Health Concerns Assessment Noted Time A fall risk assessment has been complete d for the patient 12/21/2024 1:23 PM EDT documented as of this encounter Care Teams Owner Operator Relationship Specialty Start Date End Date Roman Mercer [address] [place] [address] PCP - General Family Medicine 04/24/20 documented as of this encounter
--- OUTSIDE RECORDS SUMMARY | 2025-02-02 13:15 | XMS_ITS | Clinical Summary ---
Author Organization [facility] Address [address] [facility] [address] [place] [address] Phone Care Team Providers Care Switchboard Installer Name Role Phone Roman Mercer Primary Care Provider [phone] Allergies Active Allergy Reactions Criticality Noted Date [...] 1:40 PM EDT Office Visit SEP Neurology [facility] [address] [place] [address] Lisa Serrano DO Gait instability (Primary Dx); Frequent falls; Diabetic peripheral neuropathy (HCC); Vasovagal syncope 12/21/2024 Telephone SEP Neurology [facility] [address] [place] [address] Lisa Serrano DO [facility] rec [facility]) from Last 3 Months Surgical History Surgery Date Site/Laterality Comments SECTION GALLBLADDER SURGERY APPENDECTOMY CORONARY ARTERY BYPASS GRAFT SHOULDER SURGERY Right LUMBAR FUSION 08/14/2022 Spine/N/A L5/S1 ANTERIOR LUMBAR INTERBODY FUSION; Surgeon: Ki Lawson MD; Location: [facility] MAIN OR; Service: Neurosurgery Medical devices from [...] Last Done Comments Wellness Exam Medicare 1953 Diabetic Eye Exam 1968 Hepatitis C Screening 1968 Kidney Health: uACR 1968 Pneumococcal Vaccine 50+ (1 of 2 [...] this topic Medical Devices Implanted Type Area Coke Production Heater Device Identifier Shelf Expiration Date Model / Serial / Lot Bilateral Iol Lower Back Metal Cage/ 2 Rods/8 Screws Cervical Fusion Right Shoulder Screws/ Anchors Kt Graft 2.8ml Infs Sm Clara Matrx 2-Tn Bnd 5ml Strl H2o - [id number] Implanted:Qty: 1 on 08/14/2022 by Ki Lawson MD at [facility] Bilateral: Spine Lumbar [employer]:CHELLYO Ata HALL 06/09/2024 [id number] / / [id number] Cage Modulus Alif [id number] 10 Degree - [id number] Implanted:Qty: 1 on 08/14/2022 by Ki Lawson MD at [facility] N/A: Spine Lumbar NUVASIVE 08/12/2026 [id number] / / [id number] [place] 3dp Interfixated Alif [id number] 2pk - [id number] Implanted:Qty: 2 on 08/14/2022 by Ki Lawson MD at [facility] N/A: Spine Lumbar NUVASIVE 04/03/2026 [id number] / / [id number] Procedures Procedure Name Priority Date/Time Associated Diagnosis [...] bone density assessment. Study was performed on fflick 5. Bone Density: Region BMD T-score Z-score [...] mmol/L 11/30/2022 10:10 AM EDT [facility], [employer] Potassium 5.4(H) 3.5 - 5.0 mmol/L 11/30/2022 10:10 AM EDT [facility], [employer] Comment:Hemolysis detected b y analyzer. Hemolysis at this level may increase the potassium concentration > 0.1 mmol/L. Recommend recollection if clinically indicated. Chloride 97(L) 98 - 107 mmol/L 11/30/2022 10:10 AM EDT [facility], [facility] Total CO2 30(H) 22 - 29 mmol/L 11/30/2022 10:10 AM EDT [facility], [facility] Anion Gap 10 7 - 16 mmol/L 11/30/2022 10:10 AM EDT [facility], [facility] Calcium 9.3 8.8 - 10.4 mg/dL 11/30/2022 10:10 AM EDT [facility], [facility] Glucose Lvl 181(H) 82 - 100 mg/dL 11/30/2022 10:10 AM EDT [facility], [facility] BUN 45(H) 8 - 23 mg/dL 11/30/2022 10:10 AM EDT [facility] [place], [facility] Creatinine 1.80(H) 0.51 - 1.30 mg/dL 11/30/2022 10:10 AM EDT [facility], [facility] eGFR (CKD-EPIcr 2020) 29(L) >=60 mL/min/1. 73 m2 11/30/2022 10:10 AM EDT [facility] Comment:Estimated GFR was ca lculated using the CKD-EPIcr (2020) equation refit without race. The equation is recommended by the National Kidney Foundation - [place] Society of Nephrology Task Force. Blood VENOUS BLOOD / Unknown Venipuncture / Unknown 11/30/2022 8:30 AM EDT 11/30/2022 9:16 AM EDT Fern Hallman MD CHEMISTRY ORDERABLES Final Result [address], [place] [address] [facility] [address] [place] [address] * (ABNORMAL) HEMOGLOBIN A1C (11/26/2022 1:59 PM EDT) Hgb A1C 9.7(H) 4.2 - 5.6 % 11/26/2022 3:06 PM EDT [facility], [facility] Est. Avg Glucose 232 mg/dL 11/26/2022 3:06 PM EDT [facility], [facility] Blood VENOUS BLOOD / Unknown Venipuncture / Unknown 11/26/2022 1:59 PM EDT 11/26/2022 2:05 PM EDT Narrative [facility] [employer] [facility] - 11/26/2022 3:06 PM EDT REFERENCE RANGE: Normal: 4.0-5.6% Pre-diabetes: 5.7-6.4% Provisional diagnosis of diabetes: >6.4% Hgb F>10% and anything which shortens red cell survival, such as hemolytic anemia, or unstable hemoglobin variants such as HbSS, HbSC, or HbCC, will lower the HbA1c value associated with a given level of glycemic control. Lisa Serrano DO CHEMISTRY ORDERABLES Fi nal Result [facility] [employer] [facility] [address] [facility] , [place] [address] * (ABNORMAL) LIPID SCREEN (11/26/2022 1:59 PM EDT) Cholesterol 143 <200 mg/dL 11/26/2022 3:14 PM EDT [facility] [employer] Comment: < 200 Desirable 200 - 239 Borderline High >= 240 High Triglyceride 383(H) <150 mg/dL 11/26/2022 3:14 PM EDT [facility] [employer] Comment: < 150 Normal 150 - 199 Borderline High 200 - 499 High >= 500 Very High HDL 29(L) >=40 mg/dL 11/26/2022 3:14 PM EDT [facility] [employer] Comment: > 60 Optimal 40 - 60 Acceptable < 40 Low LDL Calculated 56 <100 mg/dL 11/26/2022 3:14 PM EDT [facility] [employer] Comment: < 100 Optimal 100 - 129 Near or above optimal 130 - 159 Borderline High 160 - 189 High >= 190 Very High Non-HDL-C Calculated 114 <=129 mg/dL 11/26/2022 3:14 PM EDT [employer] Comment: <130 Desirable 130-159 Above Desirable 160-189 Borderline High 190-219 High >= 220 Very High Fasting Specimen? No None 023 3:14 PM EDT [facility] Blood VENOUS BLOOD / Unknown Venipuncture / Unknown 11/26/2022 1:59 PM EDT 11/26/2022 2:05 PM EDT us Lisa Debbie Zach DO CHEMISTRY ORDERABLES Fi nal Result [facility] [employer] [address] [facility], [place] [address] [place] [address] [facility] [address] [place] [address] from Last 3 Months or Most Recently Relevant to Health Maintenance Insurance MEDICARE [place] PART A AND B FOR LIFE FOR LIFE MEDICARE [place] PART A AND B Advance Directives For more information, please contact: [phone] * Full Code (Latest Code Status on File) Date Activated Date Inactivated Comments 11/25/2022 8:31 PM 11/30/2022 5:15 PM * Full Code Date Activated Date Inactivated Comments 08/14/2022 3:40 PM 08/15/2022 8:17 PM Care Teams Switchboard Installer Relationship Specialty Start Date End Date Roman Mercer [address] [place] [id number] PCP - General Family Medicine 04/24/20
--- OUTSIDE RECORDS SUMMARY | 2025-02-02 13:15 | XMS_ITS | Clinical Summary ---
Author Organization [facility] Address [address] [place] [address] Care Team Providers Care Ssds Mk 2 Advanced Operator Name Role Phone Roman King FINISHING POWDER PRESS OPERATOR Primary Care Provider [phone]- [phone] Allergies Active Allergy Reactions Criticality Noted Date [...] Disposable Pump (Omnipod DASH Pods, Gen 4,) [facility] Active Insulin Disposable Pump (Omnipod DASH Pods, Gen 4,) [facility] Omnipod Dash Pods (Gen 4) subcutaneous [...] Description 12/17/2024 12:00 PM EDT Office Visit [facility] [address] [place] [address] Isabel Womack APRN CKD (chronic kidney disease) stage 4, GFR 15-29 ml/min ([facility]) (Primary Dx); Diabetes mellitus due to underlying condition with diabetic chronic kidney disease, unspecified CKD stage, unspecified whether intermediate designer insulin use ([facility]); Essential hypertension; Persistent proteinuria; Recurrent UTI 12/17/2024 [...] 12/17/2024 11:52 AM EDT Plan of Treatment Upcoming Encounters Date Type Department Care Team (Late st Contact Info) Description 04/22/2025 10:40 AM EST Office Visit [facility] [address] [place] [address] Isabel Womack, FINISHING POWDER PRESS OPERATOR [address] [address] Health Maintenance Due Date Last Done Comments [facility]-Depression Screening 1950 [facility]-Diabetes: Hemoglobin A1C 1950 [facility]-Hepatitis C Screening 1950 [facility]-Medicare Annual Wellness (AWV) 1950 [facility]-/Child/Adol SDOH Screenings [...] (2 - Td or Tdap) 04/20/2023 04/20/2013 [id number] Vaccine (4 - season) 2024 04/11/2021, 08/31/2020, [...] topic Insurance MEDICARE [facility] Care Teams Ssds Mk 2 Advanced Operator Relationship Specialty Start Date End Date Roman King APRN [address] [place] [address] PCP - General 01/21/22
--- OUTSIDE RECORDS SUMMARY | 2025-02-02 13:15 | XMS_ITS | Encounter Summary ---
Author Organization [facility] Address [address] [place] [address] Care Team Providers Care Supervisor Display Fabrication Name Role Phone Roman King APRN Primary Care Provider +1- [phone] Encounter Details Date Type Department Care Team [...] as of this encounter Plan of Treatment Upcoming Encounters Date Type Department Care Team (Late st Contact Info) Description 04/22/2025 10:40 AM EST Office Visit [facility] [address] [place] [address] Isabel Womack APRN [address] [address] documented as of this encounter Visit Diagnoses Not on filedocumented in this encounter Additional Health Concerns Assessment Noted Time A fall risk assessment has been complete d for the patient 08/11/2023 12:00 PM EST A Body Mass Index follow-up plan has been documented for the patient 12/17/2024 12:34 PM EDT documented as of this encounter Care Teams Supervisor Display Fabrication Relationship Specialty Start Date End Date Roman King APRN [address] [place] [address] PCP - General 01/21/22 documented as of this encounter
== END 2025-02-01 23:59 | disposition home or self-care (01) ==
LOC: LAB.DROPOF 02-02 13:12
PROVIDERS: PCP Podiatrist; Visit Provider Podiatrist
DX: E11.621 Type 2 diabetes mellitus with foot ulcer (principal); L97.529 Non-pressure chronic ulcer of other part of left foot with unspecified severity
CPT/HCPCS: 87070; 87205

== ENCOUNTER 2025-02-08 12:10 | Outpatient (CLI) | payer MEDICARE, OTHER, SELFPAY ==
--- OUTSIDE RECORDS SUMMARY | 2024-12-17 12:00 | XMS_ITS | Encounter Summary ---
Author Organization Healthcare Address [address] [place] [address] Care Team Providers Care Cfd Engineer Name Role Phone Roman King GAMA Primary Care Provider +1- [phone] Reason for Referral * Consultation (Routine) - Authorized Specialty Diagnoses / Procedures Referred By Danyelle t Referred To Contact Diagnoses CKD (chronic kidney disease) stage 4, GFR 15-29 ml/min ([facility]) Isabel Womack APRN [address] [address] Phone: tel: fax: Referral ID Status Reason Start Date Expiration Date V isits Requested Visits Authorized [id number] Authorized 12/17/2024 06/18/2026 1 1 Reason for [...] Description 12/17/2024 12:00 PM EDT [facility] [address] [place] [address] Isabel Womack APRN [address] [address] CKD (chronic kidney disease) stage 4, GFR 15-29 ml/min ([facility]) (Primary Dx); Diabetes mellitus due to underlying condition with diabetic chronic kidney disease, unspecified CKD stage, unspecified whether keno terminal operator insulin use ([facility]); Essential hypertension; Persistent proteinuria; Recurrent UTI Social [...] and EDIN episodes, here forfollowup in the [place] [facility]. DM control on her insulin [...] Description 04/22/2025 10:40 AM EST [facility] [address] [place] [address] Isabel Womack APRN [address] [facility] [address] [place] [address] Scheduled Orders Name Type Priority [...] kidney disease) stage 4, GFR 15-29 ml/min ([facility]) 1 Occurrences starting 12/17/2024 until 01/17/2026 documented as of this encounter Visit Diagnoses Diagnosis CKD (chronic kidney disease) stage 4, GFR 15-29 ml/min ([facility])- Primary Chronic kidney disease, Stage IV (severe) Diabetes mellitus due to underlying condition with diabetic chronic kidney disease, unspecified CKD stage, unspecified whether m[facility]p insulin use ([facility]) Essential hypertension Unspecified essential hypertension Persistent proteinuria Recurrent UTI Urinary tract infection, site not specified documented in this encounter Additional Health Concerns Assessment Noted Time A fall risk assessment has been complete d for the patient 08/11/2023 12:00 PM EST A Body Mass Index follow-up plan has been documented for the patient 12/17/2024 12:34 PM EDT documented as of this encounter Care Teams Cfd Engineer Relationship Specialty Start Date End Date Roman King APRN [address] [place] [address] PCP - General 01/21/22 documented as of this encounter
--- OUTSIDE RECORDS SUMMARY | 2024-12-21 13:40 | XMS_ITS | Encounter Summary ---
Author Organization [place] [address] Care Team Providers Care Stock Broker Name Role Phone RuslanRoman Primary Care Provider [phone] Reason for Referral * MRI/CAT Scan (Routine) - Pending Review Specialty Diagnoses / Procedures Referred By Danyelle balderrama Referred To Contact Radiology Diagnoses Gait instability Frequent falls Procedures MRI BRAIN WO CONTRAST Lisa Serrano DO [address] [facility] [address] [place] [address] Phone: tel: fax: Referral ID Status Reason Start Date Expiration Date V isits Requested Visits Authorized [id number] Pending Review 12/21/2024 12/21/2025 1 1 Reason for Visit * Reason Comments Hospital Follow Up Here alone - has his tory of falling frequently. States she has had balance issues for a few years now. Gait Problem Loss of Consciousness Had recent occurre nce of syncope while she was seeing another doctor. She states she was out for 40 minutes. Saw merry go round operator yesterday. * Consultation (Routine) - Authorization Not Needed Specialty Diagnoses / Procedures Referred By Danyelle balderrama Referred To Contact Diagnoses Syncope and collapse Roman King, [address] [place] [address] Phone: tel: fax: [facility] [place] [address] [place] [address] Phone: tel: Referral ID Status Reason Start Date Expiration Date Visits Requested Visits Authorized [id number] Authorization Not Needed 11/30/2024 11/30/2025 1 1 Encounter Details Date Type Department Care Team (Nimo st Contact Info) Description 12/21/2024 1:40 PM EDT Office Visit [facility]P Neurology CV [address] [place] [address] Lisa Serrano, DO [address] [place] [address] Gait instability (Primary Dx); Frequent [...] states she was out for 40minutes. Saw merry go round operator yesterday. HPI: Jillian Robert is a 74 [...] up following up with Dr. Jean-Baptiste- in [place] and states he told her it was [...] EMS was called, she was taken to [facility]. [place] fine when she got here, states she [...] artery biopsy; Surgeon: Bam Quintana DO; Location: [facility] MAIN OR; Service: General SECTION CORONARY ARTERY BYPASS GRAFT GALLBLADDER SURGERY LUMBAR FUSION N/A 08/14/2022 L5/S1 ANTERIOR LUMBAR INTERBODY FUSION; Surgeon: Ki Lawson MD; Location: [facility] MAIN OR; Service: Neurosurgery SHOULDER SURGERY Right [...] SOLOMON 14 DAY READER) Misc Misc by [facility] [place]Non-Drug; Combo Route) route. gabapentin (NEURONTIN) 600 mg [...] 1/4 bilateral patellar, 1/4 bilateral Achilles. Coordination: Hhvbai-re-utay and rapid alternating movements intact. No dysmetria [...] 310 11/30/2022 Lab Results Component Value Date [id number] 1,594 (H) 11/26/2022 A1C 8.9 ( @ [...] rooms, so use additional caution in those settings. skewer up throw-rugs to avoid additional falls. You may [...] documented as of this encounter Care Teams Stock Broker Relationship Specialty Start Date End Date Roman [facility] [place] [phone] PCP - General Family Medicine 04/24/20 documented as of this encounter
--- NOTE | 2025-02-08 12:13 | XR_ITS ---
FINAL REPORT CLINICAL HISTORY: left foot diabetic ulcer, cellulitis COMPARISON: None FINDINGS: LEFT FOOT Three views of the left foot demonstrate no acute fracture or dislocation. The visualized joint spaces are normally aligned. Mild medial and lateral soft tissue swelling is identified. IMPRESSION: Mild soft tissue swelling, with no acute bony abnormality. Reviewed, Interpreted and Dictated by Sae Mai MD Transcribed by Ashley Prado Authenticated and [facility]
--- OUTSIDE RECORDS SUMMARY | 2025-02-08 12:17 | XMS_ITS | Clinical Summary ---
Author Organization [facility] Address [address] [place] [address] Care Team Providers Care Rustic Terrazzo Setter Name Role Phone Roman King POLYGRAPH EXAMINER Primary Care Provider +1- [phone] Allergies Active Allergy Reactions Criticality Noted Date [...] Disposable Pump (Omnipod DASH Pods, Gen 4,) [facility] 3 Active Insulin Disposable Pump (Omnipod DASH Pods, Gen 4,) [facility] Omnipod Dash Pods (Gen 4) subcutaneous cartridge [...] Visit [facility] [address] [place] [address] Isabel Womack APRN CKD (chronic kidney disease) stage 4, GFR 15-29 ml/min ([facility]) (Primary Dx); Diabetes mellitus due to underlying condition with diabetic chronic kidney disease, unspecified CKD stage, unspecified whether laborer marine terminal insulin use ([facility]); Essential hypertension; Persistent proteinuria; Recurrent UTI 12/17/2024 [...] Description 04/22/2025 10:40 AM EST Office Visit [facility] [address] [place] [address] Isabel Womack, POLYGRAPH EXAMINER [address] [address] Health Maintenance Due Date Last [...] (2 - Td or Tdap) 04/20/2023 04/20/2013 [id number] Vaccine (4 - season) 2024 04/11/2021, 08/31/2020, [...] age to complete this topic Insurance MEDICARE [facility] Care Teams Rustic Terrazzo Setter Relationship Specialty Start Date End Date Roman King APRN [address] [place] [address] PCP - General 01/21/22
--- OUTSIDE RECORDS SUMMARY | 2025-02-08 12:17 | XMS_ITS | Encounter Summary ---
Author Organization [facility] Address [address] [place] [address] Care Team Providers Care Scratch Polisher Name Role Phone Roman King APRN Primary Care Provider +1- [phone] Encounter Details Date Type Department Care Team [...] Description 04/22/2025 10:40 AM EST Office Visit [facility] [address] [place] [address] Isabel Womack APRN [address] [address] documented as of this encounter Visit Diagnoses Not on filedocumented in this encounter Additional Health Concerns Assessment Noted Time A fall risk assessment has been complete d for the patient 08/11/2023 12:00 PM EST A Body Mass Index follow-up plan has been documented for the patient 12/17/2024 12:34 PM EDT documented as of this encounter Care Teams Scratch Polisher Relationship Specialty Start Date End Date Roman King APRN [address] [place] [address] PCP - General 01/21/22 documented as of this encounter
--- OUTSIDE RECORDS SUMMARY | 2025-02-08 12:17 | XMS_ITS | Clinical Summary ---
Author Organization [facility] Address [address] [place] [id number] Phone Care Team Providers Care General Matcher Name Role Phone Maine Patel [phone] Conditions or Problems Problem Name Problem Code Onset Date Status Entry Date Provider Comment Standard Description Annotate PAIN IN HIP, RIGHT M25.551 (ICD-10-CM ) 02/12 Active 02/12 Mainejone Patel Pain in right hip *AFTRCR FOLLOW SRG MUSCULOSKELETAL SYSTEM NEC Z48.89 (ICD-10-CM ) 08/26 Active 08/26 Pat Short MA Encounter for other specified surgical aftercare OVERWEIGHT 103018790 (SNOMED CT) Active Pat Short MA Overweight LUMBAR SPONDYLOLISTHESI S, ACQUIRED, 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 (ICD-10-CM ) Active 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 sis, lumbar region LUMBAR RADICULOPATHY 235465736 (SNOMED CT) Active Dianne Chatterjee MA Lumbar radiculopathy Medications Medication Instructions Start Date Stop Date Generic Name NDC Provider ESTRADIOL 0.1 MG/GM CREA estradiol 64270328444 Flor Colón MYRBETRIQ 25 MG [id number]-AYS mirabegron 37045362883 Flor Colón FLUCONAZOLE 150 MG TABS fluconazole 45167755502 Flor Colón OMEPRAZOLE 40 MG CPDR omeprazole 61304191314 lFor Colón VENLAFAXINE HCL ER 75 MG [id number]-DKP venlafaxine 90110328372 Flor Colón GNP ADVANCED PROBIOTIC CAPLET 60CT take one caplet BY MOUTH EVERY DAY GNP ADVANCED PROBIOTIC CAPLET 60CT Flor Katarzyna OMNIPOD DASH PODS (GEN 4) USE DIRECTED (CHANGE omnipod every 72 hours) insulin pump cart,cont inf,bt 67344739639 Flor Katarzyna ROSUVASTATIN CALCIUM 40 MG TABS rosuvastatin 67193146831 Flor Colón Vitamin C 500 mg tablet TAKE ONE TABLET BY MOUTH TWICE DAILY ascorbic acid (vitamin c) 82008165670 Flor Colón LEVOTHYROXINE SODIUM 112 MCG TABS levothyroxine 01364739125 Flor Colón INSULIN LISPRO 100 UNIT/ML SOLN insulin lispro 73877167081 Leonid Colón GABAPENTIN 600 MG TABS gabapentin 74020466219 Flor Colón CARVEDILOL 25 MG TABS carvedilol 46019035581 Flor Colón VASCEPA 0.5 GM CAPS icosapent ethyl 07855728734 Flor Colón ALLOPURINOL 100 MG TABS allopurinol 68324299541 Flor Colón OMEPRAZOLE 10 MG CPDR omeprazole 18783135957 Flor Colón VENLAFAXINE HCL 25 MG TABS venlafaxine 25569443605 Flor Colón TRAMADOL HCL 50 MG TABS Take 1 tablet by mouth every six hours as needed for pain tramadol 72400319381 Ki Lawson MD TRAMADOL HCL 50 MG TABS Take 1 tablet by mouth every six hours tramadol 11369455887 Ki Lawson MD TRAMADOL HCL 50 MG TABS tramadol 08928967043 Ly STROUD TRAMADOL HCL 50 MG TABS Take 1 tablet by mouth every six hours as needed for pain tramadol 10236329357 Ly STROUD OMNIPOD DASH PODS (GEN 4) insulin pump cart,cont inf,bt 65010491507 Dianne Chatterjee MA ROSUVASTATIN CALCIUM 40 MG TABS rosuvastatin 92586966242 Dianne Chatterjee MA VASCEPA 1 GM CAPS icosapent ethyl 68703666043 Dianne Chatterjee MA NITROFURANTOIN MONOHYD MACRO 100 MG CAPS nitrofurantoin monohyd/m-cryst 85393101686 Dianne Chatterjee MA CEFDINIR 300 MG CAPS cefdinir 13415644298 Dianne Chatterjee MA LEVOXYL 112 MCG TABS levothyroxine 56017494457 Dianne Chatterjee MA LEVOFLOXACIN 500 MG TABS levofloxacin 51562306108 Dianne Chatterjee MA CEPHALEXIN 500 MG CAPS cephalexin 34920232739 Dianne Chatterjee MA TRAMADOL HCL 50 MG TABS tramadol 10889177418 Dianne Chatterjee MA INSULIN LISPRO 100 UNIT/ML SOLN insulin lispro 17437569824 Dianne Chatterjee MA OMEPRAZOLE 40 MG CPDR omeprazole 26904336577 Dianne Chatterjee MA HYDROCODONE-ACETA MINOPHEN 5-325 MG TABS hydrocodone-acet aminophen 51190231335 Dianne Chatterjee MA ALLOPURINOL 100 MG TABS allopurinol 41581339797 Dianne Chatterjee MA FLUCONAZOLE 150 MG TABS fluconazole 45685036239 Dianne Chatterjee MA OXYBUTYNIN CHLORIDE ER 10 MG NM46P-WJE oxybutynin chloride 21426275164 Dianne Chatterjee MA GABAPENTIN 600 MG TABS gabapentin 16154442519 Dianne Chatterjee MA CARVEDILOL 25 MG TABS carvedilol 36878538218 Dianne Chatterjee MA VENLAFAXINE HCL ER 75 MG EL51V-BPT venlafaxine 19404157879 Dianne Chatterjee MA FLUCONAZOLE 100 MG TABS fluconazole 65385561915 Dianne Chatterjee MA Medications Administered No information [...] Care Type Date Detail Referral Orthopedic Refer [address], [address] Pending order X-Ray Lumbar AP Lateral & [...] Procedures Code Procedure Name Date Entry Date [facility]-[id number] Flu Shot Previously Received SCT-[id number] Pneumonia Vaccine Previously Received 02/08/25 SCT-[id number] Medications Documented [id number] Flu Shot Previously Received SCT-[id number] Pneumonia Vaccine Previously Received 01/05/20 SCT-[id number] Medications Documented SCT-[id number] Pneumonia Vaccine Previously Received 01/03/18 22977 Greater trochanteric bursa injection & follow up with ordering [id number] Flu Shot Previously Received SCT-[id number] Pneumonia Vaccine Previously Received 29/10/21 SCT-[id number] Medications Documented [id number] Flu Shot Previously Received SCT-[id number] Pneumonia Vaccine Previously Received 29/09/16 SCT-[id number] Medications Documented [id number] Flu Shot Previously Received SCT-[id number] Pneumonia Vaccine Previously Received 30/08/19 SCT-[id number] Medications Documented [id number] Flu Shot Previously Received SCT-[id number] Pneumonia Vaccine Previously Received 01/08/02 SCT-[id number] Medications Documented [id number] Flu Shot Previously Received [facility]-[id number] Pneumonia Vaccine Previously Received 30/05/02 [facility]-[id number] Medications Documented [facility]-[id number] Flu Shot Previously Received [facility]-[id number] Medications Documented [facility]-[id number] Pneumonia Vaccine Previously Received 30/03/21 Vital Signs Date Name Value Unit Description BMI (Body Mass Index) 27.34 kg/m2 Bod y Mass Index (Ratio) Height 60 [in_us] height E&M Weight Measured 140 [lb_av] weight E& M Weight Measured 140 [lb_av] weight E& M Immunizations No information available. Advance Directives No information available.
--- OUTSIDE RECORDS SUMMARY | 2025-02-08 12:17 | XMS_ITS | Clinical Summary ---
Author Organization [facility] Address [address] [facility] [address] [place] [phone] Phone Care Team Providers Care Plastic Surgery Specialist Name Role Phone Roman Mercer Primary Care Provider [phone] Allergies Active Allergy Reactions Criticality Noted Date [...] 1:40 PM EDT Office Visit SEP Neurology [facility] [address] [place] [address] Lisa Serrano DO Gait instability (Primary Dx); Frequent falls; Diabetic peripheral neuropathy (HCC); Vasovagal syncope 12/21/2024 Telephone SEP Neurology [facility] [address] [place] [address] Lisa Serrano DO [facility] rec request) from Last 3 Months Surgical History Surgery Date Site/Laterality Comments SECTION GALLBLADDER SURGERY APPENDECTOMY CORONARY ARTERY BYPASS GRAFT SHOULDER SURGERY Right LUMBAR FUSION 08/14/2022 Spine/N/A L5/S1 ANTERIOR LUMBAR INTERBODY FUSION; Surgeon: Ki Lawson MD; Location: [facility] MAIN OR; Service: Neurosurgery Medical devices from [...] this topic Medical Devices Implanted Type Area Visitor Information Assistant Device Identifier Shelf Expiration Date Model / Serial / Lot Bilateral Iol Lower Back Metal Cage/ 2 Rods/8 Screws Cervical Fusion Right Shoulder Screws/ Anchors Kt Graft 2.8ml Infs Sm Clara Matrx 2-Tn Bnd 5ml Strl H2o - [id number] Implanted:Qty: 1 on 08/14/2022 by Ki Lawson MD at [facility] Bilateral: Spine Lumbar [employer]:CHELLYO Ata HALL 06/09/2024 [id number] / / [id number] Cage Modulus Alif [id number] 10 Degree - [id number] Implanted:Qty: 1 on 08/14/2022 by Ki Lawson MD at [facility] N/A: Spine Lumbar NUVASIVE 08/12/2026 [id number] / / [id number] [place] 3dp Interfixated Alif [id number] 2pk - [id number] Implanted:Qty: 2 on 08/14/2022 by Ki Lawson MD at [facility] N/A: Spine Lumbar NUVASIVE 04/03/2026 [id number] / / [id number] Procedures Procedure Name Priority Date/Time Associated Diagnosis [...] bone density assessment. Study was performed on easyfolio 5. Bone Density: Region BMD T-score Z-score [...] mmol/L 11/30/2022 10:10 AM EDT [facility] Potassium 5.4(H) 3.5 - 5.0 mmol/L 11/30/2022 10:10 AM EDT [facility] Comment:Hemolysis detected b y analyzer. Hemolysis at this level may increase the potassium concentration > 0.1 mmol/L. Recommend recollection if clinically indicated. Chloride 97(L) 98 - 107 mmol/L 11/30/2022 10:10 AM EDT [facility] Total CO2 30(H) 22 - 29 mmol/L 11/30/2022 10:10 AM EDT [facility], [facility] Anion Gap 10 7 - 16 mmol/L 11/30/2022 10:10 AM EDT [facility], [facility] Calcium 9.3 8.8 - 10.4 mg/dL 11/30/2022 10:10 AM EDT [facility], [facility] Glucose Lvl 181(H) 82 - 100 mg/dL 11/30/2022 10:10 AM EDT [facility] BUN 45(H) 8 - 23 mg/dL 11/30/2022 10:10 AM EDT [facility] Creatinine 1.80(H) 0.51 - 1.30 mg/dL 11/30/2022 10:10 AM EDT [facility], [facility] eGFR (CKD-EPIcr 2020) 29(L) >=60 mL/min/1. 73 m2 11/30/2022 10:10 AM EDT [facility] Comment:Estimated GFR was ca lculated using the CKD-EPIcr (2020) equation refit without race. The equation is recommended by the National Kidney Foundation - [place] [employer] Nephrology Task Force. Blood VENOUS BLOOD / Unknown Venipuncture / Unknown 11/30/2022 8:30 AM EDT 11/30/2022 9:16 AM EDT Fern Hallman MD CHEMISTRY ORDERABLES Final Result [address], [place] [address] [facility] [address] [place] [address] * (ABNORMAL) HEMOGLOBIN A1C (11/26/2022 1:59 PM EDT) Hgb A1C 9.7(H) 4.2 - 5.6 % 11/26/2022 3:06 PM EDT [facility] Est. Avg Glucose 232 mg/dL 11/26/2022 3:06 PM EDT [facility] Blood VENOUS BLOOD / Unknown Venipuncture / Unknown 11/26/2022 1:59 PM EDT 11/26/2022 2:05 PM EDT Narrative [facility] [email or web address] [facility] - 11/26/2022 3:06 PM EDT REFERENCE RANGE: Normal: 4.0-5.6% Pre-diabetes: 5.7-6.4% Provisional diagnosis of diabetes: >6.4% Hgb F>10% and anything which shortens red cell survival, such as hemolytic anemia, or unstable hemoglobin variants such as HbSS, HbSC, or HbCC, will lower the HbA1c value associated with a given level of glycemic control. Lisa Serrano DO CHEMISTRY ORDERABLES Fi nal Result [facility] [email or web address] [facility] [address] [facility] , [place] [address] * (ABNORMAL) LIPID SCREEN (11/26/2022 1:59 PM EDT) Cholesterol 143 <200 mg/dL 11/26/2022 3:14 PM EDT [facility] [email or web address] [facility] Comment: < 200 Desirable 200 - 239 Borderline High >= 240 High Triglyceride 383(H) <150 mg/dL 11/26/2022 3:14 PM EDT [facility] [employer] Comment: < 150 Normal 150 - 199 Borderline High 200 - 499 High >= 500 Very High HDL 29(L) >=40 mg/dL 11/26/2022 3:14 PM EDT [facility] [employer] Comment: > 60 Optimal 40 - 60 Acceptable < 40 Low LDL Calculated 56 <100 mg/dL 11/26/2022 3:14 PM EDT [facility] [employer] Comment: < 100 Optimal 100 - 129 Near or above optimal 130 - 159 Borderline High 160 - 189 High >= 190 Very High Non-HDL-C Calculated 114 <=129 mg/dL 11/26/2022 3:14 PM EDT [employer] Comment: <130 Desirable 130-159 Above Desirable 160-189 Borderline High 190-219 High >= 220 Very High Fasting Specimen? No None 023 3:14 PM EDT [facility] Blood VENOUS BLOOD / Unknown Venipuncture / Unknown 11/26/2022 1:59 PM EDT 11/26/2022 2:05 PM EDT us Lisa Debbie Zach DO CHEMISTRY ORDERABLES Fi nal Result [facility] [address], [place] [address] [facility] [address] [place] [address] from Last 3 Months or Most Recently Relevant to Health Maintenance Insurance MEDICARE [place] PART A AND B FOR LIFE FOR LIFE MEDICARE [place] PART A AND B Advance Directives For more information, please contact: [phone] * Full Code (Latest Code Status on File) Date Activated Date Inactivated Comments 11/25/2022 8:31 PM 11/30/2022 5:15 PM * Full Code Date Activated Date Inactivated Comments 08/14/2022 3:40 PM 08/15/2022 8:17 PM Care Teams Plastic Surgery Specialist Relationship Specialty Start Date End Date Roman Mercer [address] [id number] PCP - General Family Medicine 04/24/20
--- OUTSIDE RECORDS SUMMARY | 2025-02-08 12:18 | XMS_ITS | Encounter Summary ---
Author Organization [place] [address] Care Team Providers Care Director Digital Catalogue Name Role Phone Roman Mercer Primary Care Provider [phone] Reason for Visit * Reason Onset Date Comments Other 12/21/2024 Chay Jacobs rec request Encounter Details Date Type Department Care Team (Late st Contact Info) Description 12/21/2024 Telephone SEP Neurology [facility] [address] [place] [address] Lisa Serrano DO [address] [place] [address] Other (Chay Jacobs rec request) Social History [...] 3:18 PM EDT Received medical notes from [facility] for this patient. Place in [place]'s in-basket. * Telephone Encounter - Rula Tadeo MA - 12/21/2024 1:35 PM EDT Sent fax request for medical notes from recent appointments at [facility] Dr. Ming Jacobs Fax confirmation received. documented in this encounter Plan of Treatment Not on file documented as of this encounter Visit Diagnoses Not on filedocumented in this encounter Additional Health Concerns Assessment Noted Time A fall risk assessment has been complete d for the patient 12/21/2024 1:23 PM EDT documented as of this encounter Care Teams Director Digital Catalogue Relationship Specialty Start Date End Date Roman Mercer [address] [place] [address] PCP - General Family Medicine 04/24/20 documented as of this encounter
[2025-02-08 13:06] LABS: Hematocrit 42.7 % (37.0-47.0); Hemoglobin 13.7 g/dL (12.2-16.2); Immature Granulocytes % 0.5 %; Mean Corpuscular HGB Conc 32.1 g/dL (31.8-35.4); Mean Corpuscular Hemoglobin 29.1 pg (27.0-31.2); Mean Corpuscular Volume 90.7 fl (81-99); Nucleated Red Blood Cells % 0 %; Platelet Count 249 K/mm3 (142-424); Red Blood Count 4.71 M/mm3 (4.20-5.40); Red Cell Distribution Width-SD 50.8 fL; White Blood Count 9.8 K/mm3 (4.8-10.8)
[2025-02-08 13:35] LABS: Chloride 104 mmol/L (98-107)
[2025-02-08 13:36] LABS: Albumin Level 4.4 g/dl (3.5-5.0); Potassium 4.9 mmoL/L (3.5-5.1); Sodium 140 mmol/L (136-145)
[2025-02-08 13:38] LABS: Alanine Aminotransferase 21 U/L (12-78); Anion Gap 13.9 mEq/L (5-15); Aspartate Amino Transferase 32 U/L (14-36); Blood Urea Nitrogen 45 mg/dl (7-17); Carbon Dioxide 27 mmol/L (22.0-30.0); Creatinine,Serum 1.60 mg/dl (0.52-1.04); Estimated Glomerular Filt Rate 32 ml/min (>60); GFR (African American) 38 ML/MIN (>60)
[2025-02-08 13:39] LABS: Albumin/Globulin Ratio 1.6 (1.1-1.8); Alkaline Phosphatase 79 U/L (38-126); Bilirubin,Total 0.4 mg/dl (0.2-1.3); Calcium 9.4 mg/dl (8.4-10.2); Globulin 2.8 g/dL (1.3-3.2); Glucose 86 mg/dl (74-100); Total Protein,Serum 7.2 g/dl (6.3-8.2)
[2025-02-08 14:27] LABS: Hemoglobin A1C 8.1 % (4.0-6.0)
[2025-02-08 15:14] LABS: C-Reactive Protein 2.9 mg/L (0-4)
== END 2025-02-08 23:59 | disposition home or self-care (01) ==
LOC: LAB 12:11
PROVIDERS: PCP Nurse Practitioner Family; Visit Provider Podiatrist
DX: M79.89 Other specified soft tissue disorders (principal); L03.116 Cellulitis of left lower limb; E11.621 Type 2 diabetes mellitus with foot ulcer; L97.529 Non-pressure chronic ulcer of other part of left foot with unspecified severity
CPT/HCPCS: 36415; 73630; 80053; 83036; 85025; 85651; 86140

== ENCOUNTER 2025-02-15 09:45 | Outpatient (CLI) | payer MEDICARE, OTHER, SELFPAY ==
--- OUTSIDE RECORDS SUMMARY | 2024-12-21 13:40 | XMS_ITS | Encounter Summary ---
Author Organization [place] [address] Care Team Providers Care Motor Equipment Sergeant Name Role Phone RuslanRoman Primary Care Provider [phone] [phone] Reason for Referral * MRI/CAT Scan (Routine) - Pending Review Specialty Diagnoses / Procedures Referred By Danyelle balderrama Referred To Contact Radiology Diagnoses Gait instability Frequent falls Procedures MRI BRAIN WO CONTRAST Lisa Serrano DO [address] [facility] [address] [place] [address] Phone: tel: fax: Referral ID Status Reason Start Date Expiration Date V isits Requested Visits Authorized [id number] Pending Review 12/21/2024 12/21/2025 1 1 Reason for Visit * Reason Comments Hospital Follow Up Here alone - has his tory of falling frequently. States she has had balance issues for a few years now. Gait Problem Loss of Consciousness Had recent occurre nce of syncope while she was seeing another doctor. She states she was out for 40 minutes. Saw systems software manager yesterday. * Consultation (Routine) - Authorization Not Needed Specialty Diagnoses / Procedures Referred By Danyelle balderrama Referred To Contact Diagnoses Syncope and collapse Roman King, [address] [place] [address] Phone: tel: fax: [facility] [place] [address] [place] [address] Phone: tel: Referral ID Status Reason Start Date Expiration Date Visits Requested Visits Authorized [id number] Authorization Not Needed 11/30/2024 11/30/2025 1 1 Encounter Details Date Type Department Care Team (Nimo st Contact Info) Description 12/21/2024 1:40 PM EDT Office Visit SEP Neurology CV [address] [place] [address] Lisa Serrano, DO [address] [place] [address] Gait instability (Primary Dx); Frequent [...] states she was out for 40minutes. Saw systems software manager yesterday. HPI: Jillian Robert is a 74 [...] up following up with Dr. Jean-Baptiste- in [place] and states he told her it was [...] EMS was called, she was taken to [facility]. [place] fine when she got here, states she [...] artery biopsy; Surgeon: Bam Quintana DO; Location: [facility] MAIN OR; Service: General SECTION CORONARY ARTERY BYPASS GRAFT GALLBLADDER SURGERY LUMBAR FUSION N/A 08/14/2022 L5/S1 ANTERIOR LUMBAR INTERBODY FUSION; Surgeon: Ki Lawson MD; Location: [facility] MAIN OR; Service: Neurosurgery SHOULDER SURGERY Right [...] SOLOMON 14 DAY READER) Misc Misc [place] [facility] [place]; Combo Route) route. gabapentin (NEURONTIN) 600 mg [...] 1/4 bilateral patellar, 1/4 bilateral Achilles. Coordination: Pgybaw-xe-jysz and rapid alternating movements intact. No dysmetria [...] 310 11/30/2022 Lab Results Component Value Date [id number] 1,594 (H) 11/26/2022 A1C 8.9 ( @ [...] so use additional caution in those settings. sandblaster supervisor throw-rugs to avoid additional falls. You [...] documented as of this encounter Care Teams Motor Equipment Sergeant Relationship Specialty Start Date End Date Roman [facility] [address] [place] [phone] PCP - General Family Medicine 04/24/20 documented as of this encounter
--- OUTSIDE RECORDS SUMMARY | 2025-02-16 10:30 | XMS_ITS | Clinical Summary ---
Author Organization [facility] Address [address] [place] [id number] Phone Care Team Providers Care Transplant Nurse Name Role Phone Maine Patel [phone] Conditions or Problems Problem Name Problem Code Onset Date Status Entry Date Provider Comment Standard Description Annotate PAIN IN HIP, RIGHT M25.551 (ICD-10-CM ) 02/12 Active 02/12 Mainejone Patel Pain in right hip *AFTRCR FOLLOW SRG MUSCULOSKELETAL SYSTEM NEC Z48.89 (ICD-10-CM ) 08/26 Active 08/26 Pat Short MA Encounter for other specified surgical aftercare OVERWEIGHT 905016510 (SNOMED CT) Active Pat Short MA Overweight LUMBAR SPONDYLOLISTHESI S, ACQUIRED, 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 (ICD-10-CM ) Active 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 sis, lumbar region LUMBAR RADICULOPATHY 637082635 (SNOMED CT) Active Dianne Chatterjee MA Lumbar radiculopathy Medications Medication Instructions Start Date Stop Date Generic Name NDC Provider ESTRADIOL 0.1 MG/GM CREA estradiol 07745822380 Flor Colón MYRBETRIQ 25 MG OU02Z-SSH mirabegron 78008025014 Flor Colón FLUCONAZOLE 150 MG TABS fluconazole 13098426868 Flor Colón OMEPRAZOLE 40 MG CPDR omeprazole 63795738465 Flor Colón VENLAFAXINE HCL ER 75 MG WO50C-KRK venlafaxine 53287162781 Flor Colón GNP ADVANCED PROBIOTIC CAPLET 60CT take one caplet BY MOUTH EVERY DAY GNP ADVANCED PROBIOTIC CAPLET 60CT Flor Katarzyna OMNIPOD DASH PODS (GEN 4) USE DIRECTED (CHANGE omnipod every 72 hours) insulin pump cart,cont inf,bt 32472107803 Flor Katarzyna ROSUVASTATIN CALCIUM 40 MG TABS rosuvastatin 76853761669 Flor Colón Vitamin C 500 mg tablet TAKE ONE TABLET BY MOUTH TWICE DAILY ascorbic acid (vitamin c) 74916013153 Flor Colón LEVOTHYROXINE SODIUM 112 MCG TABS levothyroxine 64372042040 Flor Colón INSULIN LISPRO 100 UNIT/ML SOLN insulin lispro 20052924480 Leonid Colón GABAPENTIN 600 MG TABS gabapentin 85855441562 Flor Colón CARVEDILOL 25 MG TABS carvedilol 22899271452 Flor Colón VASCEPA 0.5 GM CAPS icosapent ethyl 33358198599 Flor Colón ALLOPURINOL 100 MG TABS allopurinol 96462818469 Flor Colón OMEPRAZOLE 10 MG CPDR omeprazole 28139747522 Flor Colón VENLAFAXINE HCL 25 MG TABS venlafaxine 85001604458 Flor Colón TRAMADOL HCL 50 MG TABS Take 1 tablet by mouth every six hours as needed for pain tramadol 31867013441 Ki Lawson MD TRAMADOL HCL 50 MG TABS Take 1 tablet by mouth every six hours tramadol 77169721097 Ki Lawson MD TRAMADOL HCL 50 MG TABS tramadol 81546047021 Ly STROUD TRAMADOL HCL 50 MG TABS Take 1 tablet by mouth every six hours as needed for pain tramadol 05433520172 Ly STROUD OMNIPOD DASH PODS (GEN 4) insulin pump cart,cont inf,bt 98148382835 Dianne Chatterjee MA ROSUVASTATIN CALCIUM 40 MG TABS rosuvastatin 43990088191 Dianne Chatterjee MA VASCEPA 1 GM CAPS icosapent ethyl 92824057031 Dianne Chatterjee MA NITROFURANTOIN MONOHYD MACRO 100 MG CAPS nitrofurantoin monohyd/m-cryst 95652742381 Dianne Chatterjee MA CEFDINIR 300 MG CAPS cefdinir 74664888881 Dianne Chatterjee MA LEVOXYL 112 MCG TABS levothyroxine 88174500291 Dianne Chatterjee MA LEVOFLOXACIN 500 MG TABS levofloxacin 56152089716 Dianne Chatterjee MA CEPHALEXIN 500 MG CAPS cephalexin 64012797931 Dianne Chatterjee MA TRAMADOL HCL 50 MG TABS tramadol 91020943172 Dianne Chatterjee MA INSULIN LISPRO 100 UNIT/ML SOLN insulin lispro 78841855332 Dianne Chatterjee MA OMEPRAZOLE 40 MG CPDR omeprazole 84710475468 Dianne Chatterjee MA HYDROCODONE-ACETA MINOPHEN 5-325 MG TABS hydrocodone-acet aminophen 26681485085 Dianne Chatterjee MA ALLOPURINOL 100 MG TABS allopurinol 59518606074 Dianne Chatterjee MA FLUCONAZOLE 150 MG TABS fluconazole 99284507703 Dianne Chatterjee MA OXYBUTYNIN CHLORIDE ER 10 MG KX25A-BIC oxybutynin chloride 52646233214 Dianne Chatterjee MA GABAPENTIN 600 MG TABS gabapentin 11252263005 Dianne Chatterjee MA CARVEDILOL 25 MG TABS carvedilol 46385047406 Dianne Chatterjee MA VENLAFAXINE HCL ER 75 MG ZR21E-UBN venlafaxine 93428711241 Dianne Chatterjee MA FLUCONAZOLE 100 MG TABS fluconazole 37335215606 Dianne Chatterjee MA Medications Administered No information [...] Care Type Date Detail Referral Orthopedic Refer [address], [address] Pending order X-Ray Lumbar AP Lateral & [...] Procedures Code Procedure Name Date Entry Date [id number] Flu Shot Previously Received SCT-[id number] Pneumonia Vaccine Previously Received 02/08/25 SCT-[id number] Medications Documented [id number] Flu Shot Previously Received SCT-[id number] Pneumonia Vaccine Previously Received 01/05/20 SCT-[id number] Medications Documented SCT-[id number] Pneumonia Vaccine Previously Received 01/03/18 16980 Greater trochanteric bursa injection & follow up with ordering [id number] Flu Shot Previously Received SCT-[id number] Pneumonia Vaccine Previously Received 29/10/21 SCT-[id number] Medications Documented [id number] Flu Shot Previously Received SCT-[id number] Pneumonia Vaccine Previously Received 29/09/16 SCT-[id number] Medications Documented [id number] Flu Shot Previously Received SCT-[id number] Pneumonia Vaccine Previously Received 30/08/19 SCT-[id number] Medications Documented [id number] Flu Shot Previously Received SCT-[id number] Pneumonia Vaccine Previously Received 01/08/02 SCT-[id number] Medications Documented [id number] Flu Shot Previously Received [id number] Pneumonia Vaccine Previously Received 30/05/02 [facility][id number] Medications Documented [facility][id number] Flu Shot Previously Received [facility][id number] Medications Documented [facility][id number] Pneumonia Vaccine Previously Received 30/03/21 Vital Signs Date Name Value Unit Description BMI (Body Mass Index) 27.34 kg/m2 Bod y Mass Index (Ratio) Height 60 [in_us] height E&M Weight Measured 140 [lb_av] weight E& M Weight Measured 140 [lb_av] weight E& M Immunizations No information available. Advance Directives No information available.
--- OUTSIDE RECORDS SUMMARY | 2025-02-16 10:31 | XMS_ITS | Clinical Summary ---
Author Organization [facility] Address [address] [facility] [address] [place] [phone] Phone Care Team Providers Care Cake Tester Name Role Phone Roman Mercer Primary Care Provider [phone] Allergies Active Allergy Reactions Criticality Noted Date [...] 1:40 PM EDT Office Visit SEP Neurology [facility] [address] [place] [phone] Lisa Serrano DO Gait instability (Primary Dx); Frequent falls; Diabetic peripheral neuropathy (HCC); Vasovagal syncope 12/21/2024 Telephone SEP Neurology [facility] [address] [place] [phone] Lisa Serrano DO Other [facility] rec request) from Last 3 Months Surgical History Surgery Date Site/Laterality Comments SECTION GALLBLADDER SURGERY APPENDECTOMY CORONARY ARTERY BYPASS GRAFT SHOULDER SURGERY Right LUMBAR FUSION 08/14/2022 Spine/N/A L5/S1 ANTERIOR LUMBAR INTERBODY FUSION; Surgeon: Ki Lawson MD; Location: [facility] MAIN OR; Service: Neurosurgery Medical devices from [...] 12/01/2023 11/30/2022, 11/29/2022, 11/29/2022, Additional history exists Breast Cancer Screening 10/14/2024 10/14/2022 COVID-19 Vaccine ( season) 2025 04/11/2021, 08/31/2020, 08/02/2020 Influenza Vaccine (#1) 2025 , 04/25/2023, 02/21/2022, Additional history exists Bone Density Screening Completed 06/18/2023 Hepatitis B Vaccine Aged Out No longe r eligible based on patient's age to complete this topic Meningococcal B Vaccine Aged Out No l onger eligible based on patient's age to complete this topic Medical Devices Implanted Type Area Permaculture Contractor Device Identifier Shelf Expiration Date Model / Serial / Lot Bilateral Iol Lower Back Metal Cage/ 2 Rods/8 Screws Cervical Fusion Right Shoulder Screws/ Anchors Kt Graft 2.8ml Infs Sm Clara Matrx 2-Tn Bnd 5ml Strl H2o - [id number] Implanted:Qty: 1 on 08/14/2022 by Ki Lawson MD at [facility] Bilateral: Spine Lumbar [employer]:CHELLYO Ata HALL 06/09/2024 [id number] / / [id number] Cage Modulus Alif [id number] 10 Degree - [id number] Implanted:Qty: 1 on 08/14/2022 by Ki Lawson MD at [facility] N/A: Spine Lumbar NUVASIVE 08/12/2026 [id number] / / [id number] [place] 3dp Interfixated Alif [id number] 2pk - [id number] Implanted:Qty: 2 on 08/14/2022 by Ki Lawson MD at [facility] N/A: Spine Lumbar NUVASIVE 04/03/2026 [id number] / / [id number] Procedures Procedure Name Priority Date/Time Associated Diagnosis [...] bone density assessment. Study was performed on [employer] 5. Bone Density: Region BMD T-score Z-score [...] mmol/L 11/30/2022 10:10 AM EDT [facility], [facility] Potassium 5.4(H) 3.5 - 5.0 mmol/L 11/30/2022 10:10 AM EDT [facility] Comment:Hemolysis detected b y analyzer. Hemolysis at this level may increase the potassium concentration > 0.1 mmol/L. Recommend recollection if clinically indicated. Chloride 97(L) 98 - 107 mmol/L 11/30/2022 10:10 AM EDT [facility] Total CO2 30(H) 22 - 29 mmol/L 11/30/2022 10:10 AM EDT [facility], [facility] Anion Gap 10 7 - 16 mmol/L 11/30/2022 10:10 AM EDT [facility] Calcium 9.3 8.8 - 10.4 mg/dL 11/30/2022 10:10 AM EDT [facility] Glucose Lvl 181(H) 82 - 100 mg/dL 11/30/2022 10:10 AM EDT [facility] BUN 45(H) 8 - 23 mg/dL 11/30/2022 10:10 AM EDT [facility] Creatinine 1.80(H) 0.51 - 1.30 mg/dL 11/30/2022 10:10 AM EDT [facility] eGFR (CKD-EPIcr 2020) 29(L) >=60 mL/min/1. 73 m2 11/30/2022 10:10 AM EDT [facility] Comment:Estimated GFR was ca lculated using the CKD-EPIcr (2020) equation refit without race. The equation is recommended by the National Kidney Foundation - [place] [employer] of Nephrology Task Force. Blood VENOUS BLOOD / Unknown Venipuncture / Unknown 11/30/2022 8:30 AM EDT 11/30/2022 9:16 AM EDT Fern Hallman MD CHEMISTRY ORDERABLES Final Result [address], [place] [address] [facility] [address] [place] [address] * (ABNORMAL) HEMOGLOBIN A1C (11/26/2022 1:59 PM EDT) Hgb A1C 9.7(H) 4.2 - 5.6 % 11/26/2022 3:06 PM EDT [facility] Est. Avg Glucose 232 mg/dL 11/26/2022 3:06 PM EDT [facility] Blood VENOUS BLOOD / Unknown Venipuncture / Unknown 11/26/2022 1:59 PM EDT 11/26/2022 2:05 PM EDT Narrative [facility] - 11/26/2022 3:06 PM EDT REFERENCE RANGE: Normal: 4.0-5.6% Pre-diabetes: 5.7-6.4% Provisional diagnosis of diabetes: >6.4% Hgb F>10% and anything which shortens red cell survival, such as hemolytic anemia, or unstable hemoglobin variants such as HbSS, HbSC, or HbCC, will lower the HbA1c value associated with a given level of glycemic control. Lisa Serrano DO CHEMISTRY ORDERABLES Fi nal Result [facility] [employer] [address] [facility] , [place] [address] * (ABNORMAL) LIPID SCREEN (11/26/2022 1:59 PM EDT) Cholesterol 143 <200 mg/dL 11/26/2022 3:14 PM EDT [facility] [employer] Comment: < 200 Desirable 200 - 239 Borderline High >= 240 High Triglyceride 383(H) <150 mg/dL 11/26/2022 3:14 PM EDT [facility] Comment: < 150 Normal 150 - 199 Borderline High 200 - 499 High >= 500 Very High HDL 29(L) >=40 mg/dL 11/26/2022 3:14 PM EDT [facility] Comment: > 60 Optimal 40 - 60 Acceptable < 40 Low LDL Calculated 56 <100 mg/dL 11/26/2022 3:14 PM EDT [facility] Comment: < 100 Optimal 100 - 129 Near or above optimal 130 - 159 Borderline High 160 - 189 High >= 190 Very High Non-HDL-C Calculated 114 <=129 mg/dL 11/26/2022 3:14 PM EDT [facility] Comment: <130 Desirable 130-159 Above Desirable 160-189 Borderline High 190-219 High >= 220 Very High Fasting Specimen? No None 023 3:14 PM EDT [facility] Blood VENOUS BLOOD / Unknown Venipuncture / Unknown 11/26/2022 1:59 PM EDT 11/26/2022 2:05 PM EDT us Lisa Debbie Zach DO CHEMISTRY ORDERABLES Fi nal Result [facility] Shortlist [address] [facility], [place] [address] [facility] [address] [place] [address] from Last 3 Months or Most Recently Relevant to Health Maintenance Insurance MEDICARE [place] PART A AND B FOR LIFE FOR LIFE MEDICARE [place] PART A AND B Advance Directives For more information, please contact: [phone] * Full Code (Latest Code Status on File) Date Activated Date Inactivated Comments 11/25/2022 8:31 PM 11/30/2022 5:15 PM * Full Code Date Activated Date Inactivated Comments 08/14/2022 3:40 PM 08/15/2022 8:17 PM Care Teams Cake Tester Relationship Specialty Start Date End Date Roman Mercer [address] [place] [phone] PCP - General Family Medicine 04/24/20
--- OUTSIDE RECORDS SUMMARY | 2025-02-16 10:31 | XMS_ITS | Encounter Summary ---
Author Organization [place] [address] Care Team Providers Care Integration Consultant Name Role Phone Roman Mercer Primary Care Provider [phone] Reason for Visit * Reason Onset Date Comments Other 12/21/2024 Chay Jacobs rec request Encounter Details Date Type Department Care Team (Late st Contact Info) Description 12/21/[address] [facility] [address] [place] [address] Lisa Serrano DO [address] [place] [address] Other (Chay Jacobs rec request) Social History [...] 3:18 PM EDT [place] [facility] [place] Place [place] in-b[place]. * Telephone Encounter - Rula Tadeo MA - 12/21/2024 1:35 PM EDT Sent fax request for medical notes from recent appointments at [facility] Dr. Ming Jacobs Fax confirmation received. documented in this encounter Plan of Treatment Not on file documented as of this encounter Visit Diagnoses Not on filedocumented in this encounter Additional Health Concerns Assessment Noted Time A fall risk assessment has been complete d for the patient 12/21/2024 1:23 PM EDT documented as of this encounter Care Teams Integration Consultant Relationship Specialty Start Date End Date Roman Mercer [address] [place] [address] PCP - General Family Medicine 04/24/20 documented as of this encounter
--- OUTSIDE RECORDS SUMMARY | 2025-02-16 10:31 | XMS_ITS | Clinical Summary ---
Author Organization [facility] Address [address] [place] [address] Care Team Providers Care Steam Setter Name Role Phone Roman King MANAGER PROJECT MANAGEMENT Primary Care Provider [phone] Allergies Active Allergy Reactions Criticality Noted Date [...] Disposable Pump (O[facility]ip[facility] DASH Pods, Gen 4,) [facility] Active Insulin Disposable Pump (Omnipod DASH Pods, Gen 4,) [facility] Omnipod Dash Pods (Gen [...] Description 12/17/2024 12:00 PM EDT Office Visit [facility] [address] [place] [address] Isabel Womack APRN CKD (chronic kidney disease) stage 4, GFR 15-29 ml/min ([facility]) (Primary Dx); Diabetes mellitus due to underlying condition with diabetic chronic kidney disease, unspecified CKD stage, unspecified whether jail insulin use ([facility]); Essential hypertension; Persistent proteinuria; Recurrent UTI [...] Description 04/22/2025 10:40 AM EST Office Visit [facility] [address] [place] [phone] Isabel Womack, MANAGER PROJECT MANAGEMENT [address] [address] Health Maintenance Due Date Last [...] (2 - Td or Tdap) 04/20/2023 04/20/2013 [facility]-Bone Density Scan 06/18/2024 06/18/2023, 024 [id number] Vaccine (4 - season) 2025 04/11/2021, 08/31/2020, 08/02/2020 [facility]-Influenza Vaccine (#1) 02/07/202502/23, 04/25/2023, 02/21/2022, Additional [...] topic Insurance MEDICARE [facility] Care Teams Steam Setter Relationship Specialty Start Date End Date Roman King APRN [address] [place] [address] PCP - General 01/21/22
== END 2025-02-15 23:59 | disposition home or self-care (01) ==
LOC: LAB.DROPOF 02-16 10:21
PROVIDERS: PCP Podiatrist; Visit Provider Podiatrist
DX: S90.822A Blister (nonthermal), left foot, initial encounter (principal)
CPT/HCPCS: 87070; 87205

== ENCOUNTER 2025-03-01 12:06 | Emergency (ER) | payer MEDICARE, OTHER, SELFPAY ==
--- NOTE | 2025-03-01 12:14 | ECG_ITS ---
APPROVED REPORT Exam: Resting ECG HR:79 bpm ECG Measurements Heart Rate 79 AXES FL 164 P 61 QRSd 90 QRS 35 QT 378 T 64 QTc 412 Conclusion SINUS RHYTHM LOW QRS VOLTAGE IN PRECORDIAL LEADS [QRS DEFLECTION < 1.0 mV IN CHEST LEADS] POSSIBLE ANTERIOR MYOCARDIAL INFARCTION , PROBABLY OLD [30 ms Q WAVE IN V3/V4, OR R < 0.2 mV IN V4] BORDERLINE ECG Electronically signed by : SISSY CLINE, 03/03/2025 09:05:05
--- NOTE | 2025-03-01 12:15 | CT_ITS ---
FINAL REPORT TECHNIQUE: Thin section axial images were obtained from skull base to vertex without contrast. Coronal reconstruction images were obtained from the axial data. Exam was performed using dose reduction techniques such as automated exposure control, adjustment of the mA and kV according to patient size, and use of iterative reconstruction technique. CLINICAL HISTORY: confusion, stroke protocol COMPARISON: 11/19/2023 and 12/19/2022 FINDINGS: No acute cortical infarct is identified. There is calcification in left occipital lobe which is somewhat curvilinear. This has been increasing gradually since 2022, could be calcifications related to old infarct. There are mild periventricular hypodensities which are similar to prior likely related to small vessel ischemia. There is no mass effect or midline shift. There is no hydrocephalus. There is no intracranial hemorrhage. The posterior fossa is without acute abnormality. The basilar cisterns are preserved. The soft tissues are without acute abnormality. No acute osseous abnormality is identified. IMPRESSION: No intracranial hemorrhage or acute large cortical infarct. Calcifications in the left occipital lobe have been increasing gradually, could be related to old infarct or laminar necrosis. Consider MRI. Reviewed, Interpreted and Dictated by Emma Kamara MD Transcribed by Pippa Blair Authenticated and [facility]
--- NOTE | 2025-03-01 12:15 | CT_ITS ---
FINAL REPORT TECHNIQUE: Thin section axial images were obtained from the aortic arch to the skull base after intravenous contrast injection per CTA protocol. Multiplanar reconstruction images were obtained. Exam was performed using dose reduction techniques and the ALARA principle. CLINICAL HISTORY: confusion, stroke protocol COMPARISON: 11/19/2023 FINDINGS: CTA NECK: Aortic arch: There is irregular plaque in the distal aortic arch, unchanged from prior. There is bovine configuration to the arch. There is no significant stenosis of the great vessels at their origins. Right carotid artery: There is calcification at the distal common carotid and carotid bulb. There is stable, 50% stenosis of the distal common carotid artery. There is stable 50% stenosis of the proximal internal carotid artery. The remaining internal carotid artery is patent. Left carotid artery: There is calcified plaque at the carotid bulb. There is stable 50 to 60% stenosis of the proximal internal carotid artery. The remaining internal carotid artery is patent. Vertebral arteries: The bilateral vertebral arteries are patent. The right vertebral artery likely terminates in the cerebellar branch. No significant stenosis. IMPRESSION: Stable 50% stenosis of the distal right common carotid artery and internal carotid artery. Stable 50 to 60% stenosis of the left internal carotid artery. Irregular plaque in the distal aortic arch. Reviewed, Interpreted and Dictated by Emma Kamara MD Transcribed by Pippa Blair Authenticated and [facility]
--- NOTE | 2025-03-01 12:15 | CT_ITS ---
FINAL REPORT TECHNIQUE: Thin section axial images are obtained through the brain after intravenous contrast injection. Multiplanar reconstructions were obtained from the axial data. Exam was performed using dose reduction techniques such as automated exposure control, adjustment of the mA and kV according to patient size, and use of iterative reconstruction technique. CLINICAL HISTORY: confusion, stroke protocol COMPARISON: 11/19/2023 FINDINGS: The intracerebral portions of the carotid arteries are patent. The anterior and middle cerebral arteries are patent. There is a hypoplastic right A1 segment. The posterior cerebral arteries arise from the basilar artery. They are patent. [place] of [place] is intact. The basilar artery is patent. The right vertebral artery terminates in a right inferior cerebellar artery with the left vertebral artery supplying the basilar artery. There is no significant stenosis, aneurysm, or AVM. IMPRESSION: No evidence of large vessel occlusion or significant stenosis. Reviewed, Interpreted and Dictated by Emma Kamara MD Transcribed by Pippa Blair Authenticated and [facility]
--- NOTE | 2025-03-01 12:15 | XR_ITS ---
FINAL REPORT TECHNIQUE: Single view chest CLINICAL HISTORY: SOB COMPARISON: 11/19/2023 FINDINGS: A single view of the chest was obtained. Patient is status post median sternotomy. The heart and mediastinum are within normal limits. There are low lung volumes. Bibasilar opacities are likely atelectasis. Small left pleural effusion not excluded. There is no pneumothorax. IMPRESSION: Low lung volumes with bibasilar opacities, likely atelectasis. Recommend follow-up two-view exam with full inspiration. Reviewed, Interpreted and Dictated by Emma Kamara MD Transcribed by Maris Light Authenticated and [facility]
[2025-03-01 12:17] VITALS: BP 98/59; PULSE 81; RESP 16; TEMP 36.4; O2SAT 92; BMI 27.4
--- NOTE | 2025-03-01 12:17 | HMH.EDGENADL ---
Discharge Plan Disposition Patient Disposition: Home, Self-Care Condition: Good Prescriptions Prescriptions: No Action estradiol 0.01 % (0.1 mg/gram) cream vaginal QWEEK fluconazole 100 mg tablet PO DAILY carvedilol 25 mg tablet PO ONCE rosuvastatin 40 mg tablet 40 mg PO DAILY insulin lispro 100 unit/mL cartridge 1 sliding scale dose SQ AC Rx Instructions: pt states she programs her pump based on the number of carbs she eats Please provide 12 vials, patient is running out c 9 vials due to glucose running high. (DME) Omnipod Dash Pods (Gen 4) Cartridge See Rx Instructions .ROUTE .MEDSUPPLY Qty: 5 Rx Instructions: As directed clindamycin HCl [Cleocin HCl] 300 mg capsule 300 mg PO TID 10 Days Qty: 30 0RF allopurinol 100 MG tablet 100 mg PO DAILY venlafaxine 75 mg capsule,extended release 24hr 75 mg PO DAILY gabapentin 600 mg tablet 600 mg PO BID levothyroxine [Synthroid] 112 mcg tablet 112 mcg PO DAILY omeprazole 40 mg capsule,delayed release(DR/EC) 40 mg PO DAILY icosapent ethyl 1 gram capsule 2 g PO BID Referrals Follow up/Referrals: Roman King APRN [Primary Care Provider, Medical] - See instructions Bernice Nam MD [Staff Physician, Neurology] - See instructions Referral Note: Patient is having multiple presyncopal episodes, concern for benign paroxysmal vertigo, history of TIA, might benefit from outpatient MRI Activity Restrictions/Add. Instructions Additional Instructions/Restrictions: You were seen in the emergency department for a presyncopal episode. Please follow-up with your quill machine tender and your PCP outpatient. Please have labs rechecked to ensure that kidney numbers stay steady. Please follow-up with neurology outpatient. If symptoms worsen, or new symptoms develop, please return to the emergency department. Clinical Impressions Clinical Impression: Pre-syncope Print Language Print Language: Guamanian Discharge ED Provider: Navneet De La O Adult HPI General Chief complaint: Weakness Stated complaint: Syncopy Time Seen by Provider: 03/01/25 12:12 History of Present Illness HPI narrative: This patient is a 74-year-old female with past medical history of type 2 diabetes, TIA, CKD who presents to the emergency department with altered mental status and possible presyncopal episode. The patient's was at a podiatry appointment when she developed lightheadedness, weakness, confusion. Majority of the history is provided by the patient's . The patient's reports that the patient has been having episodes similar to this 1 over the past year. She has received cardiology workups, cardiac catheterization, Holter monitors, and consultation by neurologist with minimal improvement in her symptoms. Generally episodes will last for approximately 30 minutes. On my initial exam the patient is mildly confused but orientable, can move all 4 limbs with no difficulty, reports normal sensation on all 4 extremities, appears to have normal coordination, and is not slurring her speech. She has no obvious cranial nerve deficits, and is hemodynamically stable if uncomfortable appearing Related Data Home Medications ?Medication ?Instructions ?Recorded ?Confirmed allopurinol 100 mg tablet 100 mg PO DAILY Gout 04/27/18 03/01/25 rosuvastatin 40 mg tablet 40 mg PO DAILY High cholesterol 06/30/20 03/01/25 insulin lispro 100 unit/mL 1 sliding scale dose SQ AC Diabetes 02/12/22 03/01/25 subcutaneous cartridge gabapentin 600 mg tablet 600 mg PO BID Nerve pain 11/19/22 03/01/25 levothyroxine 112 mcg tablet 112 mcg PO DAILY Thyroid 11/19/22 03/01/25 (Synthroid) venlafaxine 75 mg capsule,extended 75 mg PO DAILY Mood 11/19/22 03/01/25 release 24 hr icosapent ethyl 1 gram capsule 2 g PO BID High cholesterol 11/20/22 03/01/25 omeprazole 40 mg capsule,delayed 40 mg PO DAILY Acid reflux 11/20/22 03/01/25 release estradiol 0.01% (0.1 mg/gram) vaginal QWEEK 12/27/24 03/01/25 vaginal cream insulin pump cart,cont inf,BT #5 ea 02/01/25 03/01/25 (Omnipod Dash Pods (Gen 4) subcutaneous cartridge) carvedilol 25 mg tablet mg PO ONCE 02/15/25 03/01/25 fluconazole 100 mg tablet mg PO DAILY 02/15/25 03/01/25 Previous Rx's ?Medication ?Instructions ?Recorded clindamycin HCl 300 mg capsule 300 mg PO TID 10 days #30 caps 02/09/25 (Cleocin HCl) Allergies Allergy/AdvReac Type Severity Reaction Status Date / Time lisinopril (LISINOPRIL) Allergy Severe S-SWELLS-OR Verified 03/01/25 11:31 AL/THROAT nitrofurantoin Allergy Intermediate I-HIVES Verified 03/01/25 11:31 (NITROFURANTOIN) levofloxacin Allergy Mild Nausea Verified 03/01/25 11:31 codeine (CODEINE) Allergy Unknown NA-NAUSEA/V Verified 03/01/25 11:31 OMITING acetaminophen (From Percocet) AdvReac Severe Hallucinati Verified 03/01/25 11:31 ng oxycodone (From Percocet) AdvReac Severe Hallucinati Verified 03/01/25 11:31 ng cephalexin (From Keflex) AdvReac Verified 03/01/25 11:31 PFSH PFS Disclaimer: The information contained in this section may have been updated after the patient was seen, as this information can be updated by other users. Medical History Blister of foot, left Cellulitis of left foot CAD (coronary artery disease) Pyelonephritis of left kidney Physical deconditioning Hydronephrosis, left Type 2 diabetes mellitus with hyperglycemia IDDM (insulin dependent diabetes mellitus) Fusion of lumbar spine Surgical History S/P right rotator cuff repair Hx of cholecystectomy History of tonsillectomy History of appendectomy History of Status post cardiac surgery Family History Other Cancer Coronary artery disease Diabetes Heart attack Hypertension Kidney disease Thyroid disorder Social History Smoking Status: Never smoker alcohol intake: never substance use type: denies use current occupational status: retired Travel in the last 8 weeks?: None household members: spouse housing: house lives independently: No marital status: number of children: 1 number of grandchildren: 1 caffeine: Yes Other Medical History Have you received the Flu Vaccine for this season: No Have you received the Pneumonia Vaccine: Yes ROS Obtained: Yes All systems reviewed & no additional complaints except as documented Physical Exam General General appearance: alert and in no apparent distress Head Head exam: atraumatic and normocephalic Eye Eye exam: Present normal appearance, PERRL and EOMI ENT ENT exam: Present normal exam and normal external ear exam Neck Neck exam: Present normal inspection, full ROM and trachea midline Chest Chest inspection: Present normal inspection and symmetric chest wall rise; Absent tenderness Respiratory Respiratory exam: Absent respiratory distress Cardiovascular Cardiovascular exam: Present regular rate, normal rhythm and other (appears warm and well perfused) Abdominal Exam Abdominal exam: Absent distention or tenderness Extremities Exam Extremities exam: Present normal inspection and full ROM Neurological Exam Neurological exam: Present alert and oriented X3 Psychiatric Psychiatric exam: Present normal affect Skin Skin exam: Present warm and dry Medical Decision Making Medical Records Medical records reviewed: Yes I reviewed the patient's medical records. Screening: Per USPSTF and CDC recommendations, given the prevalence of disease in our region, it is our hospital?s policy to screen for HIV and viral Hepatitis for all patients aged 18 and over and those with ongoing risk factors. Donald Inquiry Pt receiving controlled substance: No Donald was queried for this patient: No Vital Signs: 03/01/25 12:17 03/01/25 12:17 03/01/25 12:33 Temperature 97.5 F L 97.5 F L Temperature Source Oral Oral Pulse Rate 81 Pulse Rate [Right] 81 Respiratory Rate 16 16 Blood Pressure 98/59 L Blood Pressure [Right Arm] 98/59 L Blood Pressure Mean [Right Arm] 72 Blood Pressure Source Automatic Cuff Blood Pressure Source [Right Arm] Automatic Cuff Blood Pressure Position Supine Blood Pressure Position [Right Arm] Supine 02 Sat by Pulse Oximetry 92 L 92 L 92 L Oxygen Delivery Method Room Air Room Air Room Air 03/01/25 14:24 Temperature 97.9 F Temperature Source Oral Pulse Rate 74 Pulse Rate [Right] Respiratory Rate 14 Blood Pressure 160/83 H Blood Pressure [Right Arm] Blood Pressure Mean [Right Arm] Blood Pressure Source Automatic Cuff Blood Pressure Source [Right Arm] Blood Pressure Position Supine Blood Pressure Position [Right Arm] 02 Sat by Pulse Oximetry Oxygen Delivery Method Room Air Lab Data Lab results reviewed: Yes I reviewed the patient's lab results. Lab Results 03/01/25 12:15: WBC 9.6, RBC 4.21, Hgb 12.7, Hct 38.5, MCV 91.4, MCH 30.2, MCHC 33.0, RDW 15.3, Plt Count 211, MPV 11.0 H, Neut % (Auto) 53.6, Lymph % (Auto) 33.4, [place] % (Auto) 7.7, Eos % (Auto) 4.0, Baso % (Auto) 0.8, Neut # (Auto) 5.1, Lymph # (Auto) 3.2, [place] # (Auto) 0.7, Eos # (Auto) 0.4, Baso # (Auto) 0.1, PT 11.1, INR 1.00, APTT 26.1, Sodium 137, Potassium 5.0, Chloride 100, Carbon Dioxide 28, Anion Gap 14.0, BUN 50 H, Creatinine 1.90 H, Estimated Creat Clear 25, Estimated GFR 26 L, Est GFR ( Amer) 31 L, Glucose 185 H, Calcium 9.1, Total Bilirubin 0.6, AST 36, ALT 23, Alkaline Phosphatase 49, Troponin I < 0.01, Total Protein 7.1, Albumin 4.1, Globulin 3.0, Albumin/Globulin Ratio 1.4, Triglycerides 373 H, Cholesterol 161, LDL Cholesterol Direct < 30.00 L, VLDL Cholesterol 75 H, HDL Cholesterol 33 L, Cholesterol/HDL Ratio 4.9 H, Plasma/Serum Alcohol < 10 03/01/25 12:57: Urine Color Yellow, Urine Appearance Clear, Urine pH 5.5, Ur Specific [place] 1.015, Urine Protein 1+ A, Urine Glucose (UA) Negative, Urine Ketones Negative, Urine Blood Trace-i, Urine Nitrate Negative, Urine Bilirubin Negative, Urine Urobilinogen 0.2, Ur Leukocyte Esterase 2+ A, Urine RBC None, Urine WBC 20-50, Ur Squamous Epith Cells 5-10, Urine Bacteria 4+, Urine Opiates Screen Negative, Urine Methadone Screen Negative, Ur Barbituates Screen Negative, Ur Phencyclidine Scrn Negative, Ur Amphetamines Screen Negative, U Benzodiazepines Scrn Negative, Urine Cocaine Screen Negative, U Marijuana (THC) Screen Negative 03/01/25 12:15 03/01/25 12:15 Orders (Tests/Meds): ED MEDICATIONS Discontinued Medications Generic Name Dose Route Start Last Admin Trade Name Freq PRN Reason Stop Dose Admin Iopamidol 80 ml 03/01/25 12:41 03/01/25 12:41 Iopamidol-370 (76%);100ml Bottle IV 03/01/25 12:42 80 ml ONCE ONE Administration Sodium Chloride 10 ml 03/01/25 12:14 Sodium Chloride 0.9% 10ml Flush Syringe IV 03/31/25 12:13 NEEDED PRN Maintain IV Site Sodium Chloride 50 ml 03/01/25 12:41 03/01/25 12:41 0.9 % Sodium Chloride 50 Ml Vial IV 03/01/25 12:42 50 ml ONCE ONE Administration Sodium Chloride 10 ml 03/01/25 12:41 03/01/25 12:41 Sodium Chloride 0.9% 10ml Syr (Rad Only) IV 03/01/25 12:42 10 ml ONCE ONE Administration ORDERS Category Date Time Status CT angio head Stat Cat Scan 03/01/25 12:[address] angio neck Stat Cat Scan 03/01/25 12:[address] head/brain wo con Stat Cat Scan 03/01/25 12:15 Completed XR chest portable Stat Exams 03/01/25 12:15 Completed Activated Partial Thrombo Time Stat Lab 03/01/25 12:15 Completed Complete Blood Count Auto Diff Stat Lab 03/01/25 12:15 Completed Comprehensive Metabolic Panel Stat Lab 03/01/25 12:15 Completed Drug Screen,Urine Stat Lab 03/01/25 12:57 Completed Ethyl Alcohol Stat Lab 03/01/25 12:15 Completed HIV Combo Stat Lab 03/01/25 12:32 Ordered Hepatitis C Ab Qual. W/ RFX Stat Lab 03/01/25 12:32 Ordered Lipid Panel Stat Lab 03/01/25 12:15 Completed Prothrombin Time INR Stat Lab 03/01/25 12:15 Completed Troponin I Stat Lab 03/01/25 12:15 Completed Urinalysis and Microscopic Stat Lab 03/01/25 12:57 Completed Urine Culture Stat Micro 03/01/25 12:57 Received Medical Decision Narrative: MDM In summary, this 74-year-old female presents to the emergency department today with altered mental status. Initial evaluation the patient mildly uncomfortable, hemodynamically stable. Differential diagnosis includes but is not limited to stroke, TIA, sepsis, syncope, presyncope, cardiogenic shock, electrolyte abnormality. Based on these concerns, I ordered a comprehensive laboratory and imaging workup. On my initial exam the patient's NIH score was 1, so I did not feel that it was appropriate to activate a stroke alert on this patient, however due to the intermittent nature of the symptoms, I felt that following CT scans of head and neck were appropriate. ECG personally interpreted by me demonstrates no significant change from previous EKGs. Labs personally reviewed and interpreted demonstrate mild hyperglycemia, no significant leukocytosis, no significant anemia, significant elevations in BUN and creatinine which appear to be at her baseline.. CT imaging personally interpreted by me demonstrate no acute occlusion, no acute stroke, calcification in occipital lobe which could be the result of chronic strokes or TIAs. After laboratory and imaging studies have resulted, I went back and reexamined the patient. She was alert, oriented, pleasant. She reported that she had had multiple of these episodes over the last year and had received an extensive workup with no known cause of her symptoms. She feels that it is related to vertigo, when the episodes began she experienced temporary vertiginous symptoms which resolved off with the episodes 2. She reports that she has had MRIs and does not think it is likely that she is having a TIA or stroke. Her cholesterol is noted to be elevated but she is taking appropriate cholesterol medication and dual antiplatelet therapy. Given the diffuse nature of the patient's symptoms and her total resolution of symptoms I think that it is less likely this patient is having a TIA and more likely that this problem is due to benign paroxysmal vertigo or perhaps rapid shifting in the patient's electrolytes due to hypo and hyperglycemia. I had a joint medical decision making conversation with the patient and her and ultimately we decided did be appropriate for the patient to follow-up with neurology in clinic with plans for an MRI and close follow-up with her quill machine tender and manager beverage regarding her kidney disease and diabetes. Critical Care Critical Care Time Critical Care Time: No
--- NOTE | 2025-03-01 12:19 | PC.NURSE ---
RADIOLOGY NOTIFIED OF STROKE PROTOCOL
[2025-03-01 12:21] LABS: Hematocrit 38.5 % (37.0-47.0); Hemoglobin 12.7 g/dL (12.2-16.2); Immature Granulocytes % 0.5 %; Mean Corpuscular HGB Conc 33.0 g/dL (31.8-35.4); Mean Corpuscular Hemoglobin 30.2 pg (27.0-31.2); Mean Corpuscular Volume 91.4 fl (81-99); Nucleated Red Blood Cells % 0 %; Platelet Count 211 K/mm3 (142-424); Red Blood Count 4.21 M/mm3 (4.20-5.40); Red Cell Distribution Width-SD 51.0 fL; White Blood Count 9.6 K/mm3 (4.8-10.8)
--- OUTSIDE RECORDS SUMMARY | 2025-03-01 12:22 | XMS_ITS | Clinical Summary ---
Author Organization [facility] Address [address] [facility] [address] [place] [phone] Phone Care Team Providers Care Dog License Officer Supervisor Name Role Phone Roman Mercer Primary Care Provider [phone]- [phone] Allergies Active Allergy Reactions Criticality Noted Date [...] 1:40 PM EDT Office Visit [facility] Neu[facility] [address] [place] [address] Lisa Serrano DO Gait instability (Primary Dx); Frequent falls; Diabetic peripheral neuropathy (HCC); Vasovagal syncope 12/21/2024 Telephone [facility] Neurology [facility] [address] [place] [address] Lisa [facility]errano DO [facility]) from Last 3 Months Surgical History Surgery Date Site/Laterality Comments SECTION GALLBLADDER SURGERY APPENDECTOMY CORONARY ARTERY BYPASS GRAFT SHOULDER SURGERY Right LUMBAR FUSION 08/14/2022 Spine/N/A L5/S1 ANTERIOR LUMBAR INTERBODY FUSION; Surgeon: Ki Lawson MD; Location: [facility] OR; Service: Neurosurgery Medical devices from [...] this topic Medical Devices Implanted Type Area Lace Winder Device Identifier Shelf Expiration Date Model / Serial / Lot Bilateral Iol Lower Back Metal Cage/ 2 Rods/8 Screws Cervical Fusion Right Shoulder Screws/ Anchors Kt Graft 2.8ml Infs Sm Clara Matrx 2-Tn Bnd 5ml Strl H2o - [id number] Implanted:Qty: 1 on 08/14/2022 by Ki Lawson MD at [facility] Bilateral: Spine Lumbar MEDTRONIC:CHELLYO Ata HALL 06/09/2024 [id number] / / [id number] Cage Modulus Alif [id number] 10 Degree - [id number] Implanted:Qty: 1 on 08/14/2022 by Ki Lawson MD at [facility] N/A: Spine Lumbar NUVASIVE 08/12/2026 [id number] / / [id number] Fleming 3dp Interfixated Alif [id number] 2pk - [id number] Implanted:Qty: 2 on 08/14/2022 by Ki Lawson MD at [facility] N/A: Spine Lumbar NUVASIVE 04/03/2026 [id number] / / [id number] Procedures Procedure Name Priority Date/Time Associated Diagnosis [...] bone density assessment. Study was performed on OROS 5. Bone Density: Region BMD T-score Z-score [...] mmol/L 11/30/2022 10:10 AM EDT [facility] Potassium 5.4(H) 3.5 - 5.0 mmol/L 11/30/2022 10:10 AM EDT [facility], [facility] Comment:Hemolysis detected b y analyzer. Hemolysis at this level may increase the potassium concentration > 0.1 mmol/L. Recommend recollection if clinically indicated. Chloride 97(L) 98 - 107 mmol/L 11/30/2022 10:10 AM EDT [facility], [facility] Total CO2 30(H) 22 - 29 mmol/L 11/30/2022 10:10 AM EDT [facility], [facility] Anion Gap 10 7 - 16 mmol/L 11/30/2022 10:10 AM EDT [facility], [facility] Calcium 9.3 8.8 - 10.4 mg/dL 11/30/2022 10:10 AM EDT [facility], [facility] Glucose Lvl 181(H) 82 - 100 mg/dL 11/30/2022 10:10 AM EDT [facility], [facility] BUN 45(H) 8 - 23 mg/dL 11/30/2022 10:10 AM EDT [facility], [facility] Creatinine 1.80(H) 0.51 - 1.30 mg/dL 11/30/2022 10:10 AM EDT [facility], [facility] eGFR (CKD-EPIcr 2020) 29(L) >=60 mL/min/1. 73 m2 11/30/2022 10:10 AM EDT [facility] Comment:Estimated GFR was ca lculated using the CKD-EPIcr (2020) equation refit without race. The equation is recommended by the National Kidney Foundation - [place] Society of Nephrology Task Force. Blood VENOUS BLOOD / Unknown Venipuncture / Unknown 11/30/2022 8:30 AM EDT 11/30/2022 9:16 AM EDT Fern Hallman MD CHEMISTRY ORDERABLES Final Result [address], [place] [address] [facility] [address] [place] [address] * (ABNORMAL) HEMOGLOBIN A1C (11/26/2022 1:59 PM EDT) Hgb A1C 9.7(H) 4.2 - 5.6 % 11/26/2022 3:06 PM EDT [facility], [facility] Est. Avg Glucose 232 mg/dL 11/26/2022 3:06 PM EDT [facility], [facility] Blood VENOUS BLOOD / Unknown Venipuncture / Unknown 11/26/2022 1:59 PM EDT 11/26/2022 2:05 PM EDT Narrative [facility] - 11/26/2022 [...] nal Result [facility] [address] [facility] , [place] [address] * (ABNORMAL) LIPID SCREEN (11/26/2022 1:59 PM EDT) Cholesterol 143 <200 mg/dL 11/26/2022 3:14 PM EDT [facility] Comment: < 200 Desirable 200 - 239 Borderline High >= 240 High Triglyceride 383(H) <150 mg/dL 11/26/2022 3:14 PM EDT [facility] [employer] Comment: < 150 Normal 150 - 199 Borderline High 200 - 499 High >= 500 Very High HDL 29(L) >=40 mg/dL 11/26/2022 3:14 PM EDT [facility] [employer] Comment: > 60 Optimal 40 - 60 Acceptable < 40 Low LDL Calculated 56 <100 mg/dL 11/26/2022 3:14 PM EDT [facility] [employer] Comment: < 100 Optimal 100 - 129 Near or above optimal 130 - 159 Borderline High 160 - 189 High >= 190 Very High Non-HDL-C Calculated 114 <=129 mg/dL 11/26/2022 3:14 PM EDT [employer] Comment: <130 Desirable 130-159 Above Desirable 160-189 Borderline High 190-219 High >= 220 Very High Fasting Specimen? No None 023 3:14 PM EDT [facility] Blood VENOUS BLOOD / Unknown Venipuncture / Unknown 11/26/2022 1:59 PM EDT 11/26/2022 2:05 PM EDT us Lisa Debbie Zach DO CHEMISTRY ORDERABLES Fi nal Result [facility] [facility] [address] [facility], [place] [address] [facility] [address] [place] [address] from Last 3 Months or Most Recently Relevant to Health Maintenance Insurance MEDICARE [place] PART A AND B FOR LIFE FOR LIFE MEDICARE [place] PART A AND B Advance Directives For more information, please contact: [phone] * Full Code (Latest Code Status on File) Date Activated Date Inactivated Comments 11/25/2022 8:31 PM 11/30/2022 5:15 PM * Full Code Date Activated Date Inactivated Comments 08/14/2022 3:40 PM 08/15/2022 8:17 PM Care Teams Dog License Officer Supervisor Relationship Specialty Start Date End Date Roman Mercer [address] [place] [id number] PCP - General Family Medicine 04/24/20
--- OUTSIDE RECORDS SUMMARY | 2025-03-01 12:22 | XMS_ITS | Clinical Summary ---
Author Organization [facility] Address [address] [place] [address] Care Team Providers Care Applications Developer Name Role Phone Roman King GREEN END WORKER Primary Care Provider +1- [phone] Allergies Active Allergy Reactions Criticality Noted Date [...] Disposable Pump (Omnipod DASH Pods, Gen 4,) [facility] Active Insulin Disposable Pump (Omnipod DASH Pods, Gen 4,) [facility] Omnipod Dash Pods [...] Diagnosed Date 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sis, lumbar region 06/24/2022 01/23/2023 Coronary arteriosclerosis 12/17/20212022 Gastroesophageal reflux disease 12/17/2021 01/23/2023 Neuropathy 12/17/2021 01/23/2023 Status post three vessel coronary artery bypass 12/17/2021 01/23/2023 Type 2 diabetes mellitus 12/17/2021 023 Primary hypothyroidism 04/24/2020 Mixed hyperlipidemia 04/24/2020 Chronic kidney disease, stage IV (severe) 2018 Anemia 12/02/2016 Renal osteodystrophy 12/10/2014 Vitamin D deficiency 11/19/2012 Proteinuria 11/19/2012 Essential (primary) hypertension 11/19/2012 Resolved Problems Problem Noted Date Diagnosed Date Resolved Date Arthritis 12/17/2021 01/23/2023 02/27/2025 Encounters Date Type Department Care Team Description 12/17/2024 12:00 PM EDT Office Visit [facility] [address] [place] [phone] Isabel Womack APRN CKD (chronic kidney disease) stage 4, GFR 15-29 ml/min ([facility]) (Primary Dx); Diabetes mellitus due to underlying condition with diabetic chronic kidney disease, unspecified CKD stage, unspecified whether longterm insulin use ([facility]); Essential hypertension; Persistent proteinuria; Recurrent [...] Description 04/22/2025 10:40 AM EST Office Visit [facility] [address] [place] [address] Isabel Womack, GREEN END WORKER [address] [address] Health Maintenance Due Date Last Done Comments [facility]-Depression Screening 1950 [facility]-Diabetes: Hemoglobin A1C 1950 [facility]-Hepatitis C Screening 1950 [facility]-Medicare Annual Wellness (AWV) 1950 [facility]-Infant/Child/Adol SDOH Screenings 1950 Diabetes: Dental Exam 1960 [facility]- SDOH Screenings 1968 [facility]-Adult SDOH Screenings 1968 [facility]-Pneumococcal Vaccine: 50+ Years (1 of 2 - [...] 04/20/2013 [facility]-Bone Density Scan 06/18/2024 06/18/2023, 024 [id number] Vaccine (4 - season) 2025 04/11/2021, 08/31/2020, [...] age to complete this topic Insurance MEDICARE [facility] Care Teams Applications Developer Relationship Specialty Start Date End Date Roman King APRN [address] [place] [address] PCP - General 01/21/22
--- OUTSIDE RECORDS SUMMARY | 2025-03-01 12:22 | XMS_ITS | Clinical Summary ---
Author Organization [facility] Address [address] [place] [phone] Phone Care Team Providers Care Refinish Technician Name Role Phone Maine Patel [phone] Conditions or Problems Problem Name Problem Code Onset Date Status Entry Date Provider Comment Standard Description Annotate PAIN IN HIP, RIGHT M25.551 (ICD-10-CM ) 02/12 Active 02/12 Mainejone Patel Pain in right hip *AFTRCR FOLLOW SRG MUSCULOSKELETAL SYSTEM NEC Z48.89 (ICD-10-CM ) 08/26 Active 08/26 Pat Short MA Encounter for other specified surgical aftercare OVERWEIGHT [id number] (SNOMED CT) Active Pat Short MA Overweight LUMBAR SPONDYLOLISTHESI S, ACQUIRED, 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 (ICD-10-CM ) Active Ly Joshi BENZOL OPERATOR 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 sis, lumbar region LUMBAR RADICULOPATHY [id number] (SNOMED CT) Active Dianne Chatterjee MA Lumbar radiculopathy Medications Medication Instructions Start Date Stop Date Generic Name NDC Provider ESTRADIOL 0.1 MG/GM CREA estradiol 97724830204 Flor Colón MYRBETRIQ 25 MG [id number] mirabegron 08191334383 Flor Colón FLUCONAZOLE 150 MG TABS fluconazole 34587976531 Flor Colón OMEPRAZOLE 40 MG CPDR omeprazole 13735115237 Flor Colón VENLAFAXINE HCL ER 75 MG [id number] venlafaxine 08700634889 Flor Colón GNP ADVANCED PROBIOTIC CAPLET 60CT take one caplet BY MOUTH EVERY DAY GNP ADVANCED PROBIOTIC CAPLET 60CT Flor Katarzyna OMNIPOD DASH PODS (GEN 4) USE DIRECTED (CHANGE omnipod every 72 hours) insulin pump cart,cont inf,bt 07153428629 Flor Katarzyna ROSUVASTATIN CALCIUM 40 MG TABS rosuvastatin 62879818396 Flor Colón Vitamin C 500 mg tablet TAKE ONE TABLET BY MOUTH TWICE DAILY ascorbic acid (vitamin c) 32655180825 Flor Colón LEVOTHYROXINE SODIUM 112 MCG TABS levothyroxine 86988175558 Flor Colón INSULIN LISPRO 100 UNIT/ML SOLN insulin lispro 81169169867 Leonid Colón GABAPENTIN 600 MG TABS gabapentin 63776175841 Flor Colón CARVEDILOL 25 MG TABS carvedilol 85457629201 Flor Colón VASCEPA 0.5 GM CAPS icosapent ethyl 35988642815 Flor Colón ALLOPURINOL 100 MG TABS allopurinol 84097599043 Flor Colón OMEPRAZOLE 10 MG CPDR omeprazole 50062019096 Flor Colón VENLAFAXINE HCL 25 MG TABS venlafaxine 65301540670 Flor Colón TRAMADOL HCL 50 MG TABS Take 1 tablet by mouth every six hours as needed for pain tramadol 10690808460 Ki Lawson MD TRAMADOL HCL 50 MG TABS Take 1 tablet by mouth every six hours tramadol 39393772961 Ki Lawson MD TRAMADOL HCL 50 MG TABS tramadol 92800141757 Ly STROUD TRAMADOL HCL 50 MG TABS Take 1 tablet by mouth every six hours as needed for pain tramadol 86222227185 Ly STROUD OMNIPOD DASH PODS (GEN 4) insulin pump cart,cont inf,bt 66238776282 Dianne Chatterjee MA ROSUVASTATIN CALCIUM 40 MG TABS rosuvastatin 17408734331 Dianne Chatterjee MA VASCEPA 1 GM CAPS icosapent ethyl 80571877535 Dianne Chatterjee MA NITROFURANTOIN MONOHYD MACRO 100 MG CAPS nitrofurantoin monohyd/m-cryst 98462715226 Dianne Chatterjee MA CEFDINIR 300 MG CAPS cefdinir 25027389830 Dianne Chatterjee MA LEVOXYL 112 MCG TABS levothyroxine 54689131971 Dianne Chatterjee MA LEVOFLOXACIN 500 MG TABS levofloxacin 75477012987 Dianne Chatterjee MA CEPHALEXIN 500 MG CAPS cephalexin 11834496017 Dianne Chatterjee MA TRAMADOL HCL 50 MG TABS tramadol 99070078956 Dianne Chatterjee MA INSULIN LISPRO 100 UNIT/ML SOLN insulin lispro 13193212803 Dianne Chatterjee MA OMEPRAZOLE 40 MG CPDR omeprazole 54839609687 Dianne Chatterjee MA HYDROCODONE-ACETA MINOPHEN 5-325 MG TABS hydrocodone-acet aminophen 43890716271 Dianne Chatterjee MA ALLOPURINOL 100 MG TABS allopurinol 70600248538 Dianne Chatterjee MA FLUCONAZOLE 150 MG TABS fluconazole 48956302031 Dianne Chatterjee MA OXYBUTYNIN CHLORIDE ER 10 MG [id number] oxybutynin chloride 47979351971 Dianne Chatterjee MA GABAPENTIN 600 MG TABS gabapentin 99747209826 Dianne Chatterjee MA CARVEDILOL 25 MG TABS carvedilol 40216141185 Dianne Chatterjee MA VENLAFAXINE HCL ER 75 MG [id number] venlafaxine 93747622763 Dianne Chatterjee MA FLUCONAZOLE 100 MG TABS fluconazole 37658007155 Dianne Chatterjee MA Medications Administered No information [...] Care Type Date Detail Referral Orthopedic Refer [address], [address] Pending order X-Ray Lumbar AP Lateral & [...] Procedures Code Procedure Name Date Entry Date [facility]-[id number] Flu Shot Previously Received [id number] Pneumonia Vaccine Previously Received 02/08/25 [id number] Medications Documented [id number] Flu Shot Previously Received SCT-[id number] Pneumonia Vaccine Previously Received 01/05/20 [id number] Medications Documented [id number] Pneumonia Vaccine Previously Received 01/03/18 [id number] Greater trochanteric bursa injection & follow up with ordering [id number] Flu Shot Previously Received SCT-[id number] Pneumonia Vaccine Previously Received 29/10/21 [id number] Medications Documented [id number] Flu Shot Previously Received SCT-[id number] Pneumonia Vaccine Previously Received 29/09/16 [id number] Medications Documented [id number] Flu Shot Previously Received [id number] Pneumonia Vaccine Previously Received 30/08/19 [id number] Medications Documented [id number] Flu Shot Previously Received SCT-[id number] Pneumonia Vaccine Previously Received 01/08/02 [id number] Medications Documented [id number] Flu Shot Previously Received [facility]-[id number] Pneumonia Vaccine Previously Received 30/05/02 [facility]-[id number] Medications Documented [facility]-[id number] Flu Shot Previously Received [facility]-[id number] Medications Documented [facility]-[id number] Pneumonia Vaccine Previously Received 30/03/21 Vital Signs Date Name Value Unit Description BMI (Body Mass Index) 27.34 kg/m2 Bod y Mass Index (Ratio) Height 60 [in_us] height E&M Weight Measured 140 [lb_av] weight E& M Weight Measured 140 [lb_av] weight E& M Immunizations No information available. Advance Directives No information available.
[2025-03-01 12:28] LABS: Albumin Level 4.1 g/dl (3.5-5.0); Chloride 100 mmol/L (98-107); Potassium 5.0 mmoL/L (3.5-5.1); Sodium 137 mmol/L (136-145)
--- NOTE | 2025-03-01 12:28 | PC.NURSE ---
REPORTS PT HAS RETURNED TO BASELINE
[2025-03-01 12:30] LABS: Alanine Aminotransferase 23 U/L (12-78); Aspartate Amino Transferase 36 U/L (14-36); Blood Urea Nitrogen 50 mg/dl (7-17); Creatinine,Serum 1.90 mg/dl (0.52-1.04); Estimated Glomerular Filt Rate 26 ml/min (>60); GFR (African American) 31 ML/MIN (>60)
[2025-03-01 12:31] LABS: Albumin/Globulin Ratio 1.4 (1.1-1.8); Alkaline Phosphatase 49 U/L (38-126); Anion Gap 14.0 mEq/L (5-15); Bilirubin,Total 0.6 mg/dl (0.2-1.3); Calcium 9.1 mg/dl (8.4-10.2); Carbon Dioxide 28 mmol/L (22.0-30.0); Cholesterol 161 mg/dl (140-200); Globulin 3.0 g/dL (1.3-3.2); Glucose 185 mg/dl (74-100); HDL Cholesterol 33 mg/dl (40-60); Total Protein,Serum 7.1 g/dl (6.3-8.2); Triglycerides 373 mg/dl (30-150)
--- NOTE | 2025-03-01 12:31 | PC.NURSE ---
PT TO CT
[2025-03-01 12:33] VITALS: O2SAT 92
[2025-03-01 12:36] LABS: Creatinine Clearance Estimated 25 mL/min (50-200)
[2025-03-01 12:37] LABS: Activated Partial Thrombo Time 26.1 seconds (22.8-30.6); INR 1.00 (0.9-1.1); Prothrombin Time 11.1 seconds (10.1-12.5)
[2025-03-01] MEDS: IOPAMIDOL-370 (76%);100ML BOTTLE 80 ML IV (12:41)
[2025-03-01] MEDS: 0.9 % SODIUM CHLORIDE 50 ML VIAL IV (12:41)
[2025-03-01] MEDS: SODIUM CHLORIDE 0.9% 10ML SYR (RAD ONLY) 10 ML IV (12:41)
[2025-03-01 12:52] LABS: Troponin I < 0.01 ng/ml (0.00-0.034)
[2025-03-01 13:02] LABS: Microscopic, Urine URINE MICROSCOPIC (MICROSCOPIC)
[2025-03-01 13:11] LABS: Bilirubin,Urine Negative (Negative); Color,Urine YELLOW (Yellow); Glucose,Urine (UA) Negative (Negative); Ketones,Urine Negative (Negative); Leukocyte Esterase,Urine 2+ (Negative); PH,Urine 5.5 (5.0-8.5); Protein,Urine 1+ (Negative); Specific Gravity, Urine 1.015 (1.005-1.030); Urobilinogen,Urine 0.2 EU/dl (0.2)
[2025-03-01 13:57] LABS: Amphetamine/Metha Screen,Urine Negative ng/ml (<1000); Benzodiazepines Screen,Urine Negative ng/ml (<200)
[2025-03-01 13:58] LABS: Barbiturates Screen,Urine Negative ng/ml (<200)
[2025-03-01 14:00] LABS: Methadone Screen,Urine Negative ng/ml (<300); Phencyclidine Screen,Urine Negative ng/ml (<25)
[2025-03-01 14:01] LABS: Opiate Screen,Urine Negative ng/ml (<300)
[2025-03-01 14:12] LABS: Bacteria,Urine 4+ /lpf; WBC,Urine 20-50 #/hpf (0-3)
[2025-03-01 14:24] VITALS: BP 160/83; PULSE 74; RESP 14; TEMP 36.6; O2SAT 94
[2025-03-01 17:59] LABS: Hepatitis C Ab Qual. W/ RFX NEGATIVE (Negative)
--- NOTE | 2025-03-03 09:26 | PC.NURSE ---
Urine culture reviewed by Dr. Jackson. Bactrim DS sent to Clinic pharmacy. Called patient, went over instructions for antibiotics with her. She verbalized understanding.
--- NOTE | 2025-03-04 16:27 | PC.NURSE ---
final urine culture discussed with . No change needed to treatment plan.
== END 2025-03-01 14:25 | disposition home or self-care (01) ==
PROVIDERS: Emergency Provider Student in an Organized Health Care Education/Training Program; PCP Nurse Practitioner Family
DX: N39.0 Urinary tract infection, site not specified (principal); R55 Syncope and collapse; R53.1 Weakness; R41.0 Disorientation, unspecified; E11.40 Type 2 diabetes mellitus with diabetic neuropathy, unspecified; E78.5 Hyperlipidemia, unspecified; N18.9 Chronic kidney disease, unspecified; I12.9 Hypertensive chronic kidney disease with stage 1 through stage 4 chronic kidney disease, or unspecified chronic kidney disease; Z79.4 Long term (current) use of insulin
CPT/HCPCS: 70450; 70496; 70498; 71045; 80053; 80061; 80307; 80320; 81001; 84484; 85025; 85610; 85730; 86803; 87086; 87088; 87186; 87389; 93005; 99284; 99285; Q9967

== ENCOUNTER 2025-04-12 15:06 | Outpatient (CLI) | payer MEDICARE, OTHER, SELFPAY ==
--- OUTSIDE RECORDS SUMMARY | 2025-04-12 15:12 | XMS_ITS | Data Portability ---
Author Organization [facility] Medicine and [facility] [place] Address [address] [place] [address] Assessment No assessment recorded. Plan of Treatment Reminders Order Date Submit Date Provider Last Modified By Organization Details Last Modified Time Details Appointments INJ ONLY 15 2024 01:00P M LASHELL TEJADA, DO Not available Not available Not available Lab None recorded. Referral None recorded. Procedures None recorded. Surgeries None recorded. Imaging None recorded. Medication Orders Kenalog 10 mg/mL suspensio n for injection 2024 025 [place] [address] [facility] - [address], [address], 03/07/2025 12:22:46 bupivacai ne (PF) 0.5 % (5 mg/mL) injection solution [address] - [address], [address], 03/07/2025 12:22:46 Kenalog 10 mg/mL suspensio n for injection [address] - [address], [address], 12/06/2024 07:31:38 bupivacai ne HCl 0.5 % (5 mg/mL) injection solution [address] - [address], [address], 12/06/2024 07:31:38 Kenalog 10 mg/mL suspensio n for injection [address] - [address], [address], 09/01/2024 10:31:05 bupivacai ne HCl 0.5 % (5 mg/mL) injection solution [address], [address], 09/01/2024 10:31:05 Kenalog 10 mg/mL suspensio n for injection [address], [address], 05/10/2024 13:53:03 bupivacai ne HCl 0.5 % (5 mg/mL) injection solution [address], [address], 05/10/2024 13:53:03 Kenalog 10 mg/mL suspensio n for injection [address], [address], 03/09/2024 16:28:55 bupivacai ne HCl 0.5 % (5 mg/mL) injection solution [address], [address], 03/09/2024 16:28:55 Patient TargetsNo targets recorded. Patient [...] active Not Available Not Available Not Available prednisone 10 mg tablet TAKE ONE (1) TABLET TWICE A DAY BY ORAL ROUTE FOR TWO (2) DAYS. active Not Available Not Available No t Available venlafaxine ER 75 mg capsule,ext ended release 24 hr active Not Available Not Available Not Available gabapentin 600 mg tablet active Not Available Not Available Not Available doxycycline hyclate 100 mg capsule TAKE ONE (1) CAPSULE TWICE A DAY BY ORAL ROUTE FOR 10 DAYS. active Not Available Not Available No t Available clindamycin HCl 300 mg capsule TAKE ONE CAPSULE BY MOUTH THREE TIMES DAILY FOR 10 DAYS -- FINISH ALL MEDICINE -- active Not Available Not Available No t Available fosfomycin tromethamin e 3 gram oral packet TAKE ONE (1) PACKET EVERY OTHER DAY BY ORAL ROUTE FOR SIX (6) DAYS. active Not Available Not Available No t Available fluconazole 150 mg tablet TAKE ONE TABLET BY MOUTH EVERY DAY FOR yeast FOR 3 DAYS active Not Available Not Available No t Available sulfamethox azole 400 mg-trimetho prim 80 mg tablet TAKE ONE TABLET BY MOUTH EVERY TWELVE HOURS FOR 10 DAYS -- FINISH ALL MEDICINE -- active Not Available Not Available No t Available ampicillin 500 mg capsule TAKE ONE CAPSULE BY MOUTH EVERY 6 HOURS FOR infection FOR 7 DAYS -- FINISH ALL MEDICINE -- 03/04 completed Not Available Not Available Not Available bupivacaine HCl 0.5 % (5 mg/mL) injection solution Take 10 mg by injection route. 2024 active Not Available Not Available Not Avai lable alendronate 70 mg tablet active Not Available Not Available Not Available levofloxaci n 250 mg tablet TAKE ONE TABLET BY MOUTH ONCE DAILY FOR 5 DAYS -- FINISH ALL MEDICINE -- active Not Available Not Available No t Available allopurinol 100 mg tablet active Not Available Not Available Not Available ciprofloxac in 500 mg tablet TAKE ONE TABLET BY MOUTH TWICE DAILY FOR 7 DAYS -- FINISH ALL MEDICINE -- 03/04 completed Not Available Not Available Not Available sulfamethox azole 800 mg-trimetho prim 160 mg tablet TAKE ONE TABLET BY MOUTH TWICE DAILY FOR 7 DAYS FOR uti -- FINISH ALL MEDICINE -- active Not Available Not Available No t Available omeprazole 40 mg capsule,del ayed release active Not Available Not Available Not Available methenamine hippurate 1 gram tablet TAKE ONE (1) TABLET TWICE A DAY BY ORAL ROUTE FOR 30 DAYS. active Not Available Not Available No t Available Kenalog 10 mg/mL suspension for injection Take 2 mL by injection route. 2024 active Not Available Not Available Not Avai lable benzonatate 100 mg capsule TAKE ONE CAPSULE BY MOUTH TWICE DAILY -SWALLOW WHOLE. DO NOT CRUSH OR CHEW- active Not Available Not Available No t Available gentamicin 0.1 % topical cream APPLY TOPICALLY TO THE AFFECTED AREA(S) TWICE DAILY FOR infection active Not Available Not Available No t Available Synthroid 112 mcg tablet active Not Available Not Available Not Available insulin lispro (U-100) 100 unit/mL subcutaneou s solution active Not Available Not Available N ot Available levofloxaci n 500 mg tablet TAKE ONE TABLET BY MOUTH EVERY 24 HOURS FOR infection FOR 7 DAYS -- FINISH ALL MEDICINE -- 03/04 completed Not Available Not Available Not Available estradiol 0.01% (0.1 mg/gram) vaginal cream active Not Available Not Available Not Available levofloxaci n 750 mg tablet TAKE ONE TABLET BY MOUTH EVERY DAY active Not Available Not Available No t Available ondansetron 4 mg disintegrat ing tablet DISSOLVE ONE TABLET BY MOUTH TWICE DAILY NEEDED active Not Available Not Available No t Available doxycycline hyclate 100 mg tablet TAKE ONE TABLET BY MOUTH TWICE DAILY FOR 10 DAYS active Not Available Not Available No t Available amoxicillin 875 mg-potassiu m clavulanate 125 mg tablet TAKE ONE TABLET BY MOUTH EVERY TWELVE HOURS FOR 10 DAYS -- FINISH ALL MEDICINE -- active Not Available Not Available No t Available amoxicillin 500 mg-potassiu m clavulanate 125 mg tablet TAKE ONE TABLET BY MOUTH EVERY TWELVE HOURS FOR 10 DAYS -- FINISH ALL MEDICINE -- --TAKE WITH FOOD-- 03/04 completed Not Available Not Available Not Available meclizine 25 mg chewable tablet TAKE (1/2) TABLET BY MOUTH TWICE DAILY FOR 3 DAYS active Not Available Not Available No t Available Promethegan 12.5 mg rectal suppository UNWRAP AND INSERT 1 SUPPOSITO RY RECTALLY every 8 HOURS as needed FOR 3 DAYS active Not Available Not Available No t Available bupivacaine (PF) 0.5 % (5 mg/mL) injection solution Take 2 mL by injection route. 2024 active Not Available Not Available Not Avai lable rosuvastati n 40 mg tablet active Not Available Not Available Not Available peg 3350-electr olytes 236 gram-22.74 gram-6.74 gram-5.86 gram solution MIX DIRECTED AND DRINK 240 ML (8 OUNCES) BY MOUTH EVERY 10 MINUTES UNTIL FECAL EFFLUENT IS CLEAR OR OTHERWISE DIRECTED DO NOT EXCEED TOTAL VOLUME OF 4000 ML active Not Available Not Available No t Available Myrbetriq 25 mg tablet,exte nded release active Not Available Not Available Not Available icosapent ethyl 1 gram capsule active Not Available Not Available Not Available BD Veo Insulin Syringe Ultra-Fine 0.3 mL 31 gauge x 15/64 USE DIRECTED active Not Available Not Available No t Available Omnipod Dash Pods (Gen 4) subcutaneou s cartridge active Not Available Not Available Not Available Gemtesa 75 mg tablet active Not Available Not Available No t Available Vitals None Recorded Social History None [...] completed Diann Urbina null, [place] [facility] & [place] 05/10/2024 13:41:40 Influenza, high-dose, quadrivalent, PF 04/25/2023 completed Diann Urb[place], [place] [facility] [facility] [place] 05/10/2024 13:41:40 COVID-19, mRNA, LNP-S, PF, 100 mcg/0.5mL dose or 50 mcg/0.25mL dose 08/02/2020 completed Diann Urbina null, [place] [facility] & [place] 05/10/2024 13:41:40 COVID-19, mRNA, LNP-S, PF, 100 mcg/0.5mL dose or 50 mcg/0.25mL dose 08/31/2020 completed Diann Urb[place] null, [place] [facility] [place] 05/10/2024 13:41:40 COVID-19, mRNA, LNP-S, PF, 100 mcg/0.5mL dose or 50 mcg/0.25mL dose 04/11/2021 completed Diann Sweeney-Pitakis null, [place] [facility] [place] [facility] [place] 05/10/2024 13:41:41 Tdap 04/20/2013 completed Diann Sweeney-Pitakis [place] [facility] [place] [facility] [place] 05/10/2024 13:41:41 zoster live 04/20/2013 completed Diann DeckerPitakis null[place] [facility] [place] 05/10/2024 13:41:41 Influenza, high-dose, trivalent, PF 02/24/2024 completed Mercedez Yen null, [place] [facility] [place] [facility] [place] 09/01/2024 10:16:21 Influenza, high-dose, trivalent, PF 05/16/2021 completed Diann Sweeney-Pitakis null, [place] [facility] [place] [facility] [place] 05/10/2024 13:41:41 Past Encounters Encounter ID Performer Location Encounter Start Date Encounter Closed Date Diagnosis/Indication Diagnosis SNOMED-CT Code Diagnosis ICD10 Code Diagnosis IMO Codes Diagnosis Note [id number] DO [facility] [address] [address] 03/09/2024 13:25:41 03/09/2024 14:26:14 Bursitis of right hip 321939917 M06.667 [id number] DO AAKASH REYES[facility]ny [facility] [address] [address] 05/10/2024 13:14:55 05/10/2024 13:48:55 Bursitis of right hip 798908146 M06.084 [id number] DO [facility] [address] [address] 09/01/2024 10:05:42 09/01/2024 10:22:08 Bursitis of right hip 537340613 M06.542 [id number] DO [facility] [address] [address] 12/03/2024 09:59:37 12/03/2024 11:17:13 Bursitis of right hip 140554904 M06.276 [id number] LASHELL TEJADA [facility] [address] [place] [address] 03/07/2025 10:24:07 03/07/2025 10:57:19 Trochanteric bursitis of right hip 1061389341 41856 M70.61 [id number] Health Concerns Section Related Observation LastModified by Organization Detai ls LastModified Time None Recorded Concern Status LastModified by Organization Details LastModified Time None Recorded Advance Directives Directive None Recorded Payers Insurance Date Sequence Insurance Name Policy Number Policy Elena Covered Member ID Elena Member ID Guarantor Name 03/04/2025 2 FOR LIFE () Jillian Yesica [id number] Jillian Robert 03/04/2025 1 [place]ICARE[place]IC[place] Jillian Jero Yesica [id number] Jillian Robert Notes Date Note Type Note Provider Name and Address Organization Details Recorded Time 03/09/2024 text/html ROS as noted in the HPI Pt presents today with right hip pain DOO: 1 year. No injury. Pt was seeing Dr. Lawson at [facility] and was told that she has Bursitis, he then referred her to the clinic. Pt had her last hip injection on 03.11.2023. Injections no longer seem to be helping. Pt takes aspirin and ibuprofen for pain. Pt has been using a walker since pain in hip started. Hx of: L5-S1 fusion on 08.14.2022. Right hip X-rays taken @ [facility] in [place] on 07.23.2023.[id number] LASHELL TEJADA DO [address] [place] [address],[address], [place], [address], [place] [facility] [place] 03/10/2024 07:38:07 05/10/2024 text/html 73 y/o female here today for follow up RIGHT bursa hip joint was injected 03.09.24. Helped up until 2 weeks ago, at least 75% but pain isn't as bad right now prior to getting injection. Ambulating with rollator walker. Taking Ibu PRN. [id number] LASHELL TEJADA DO [address] [facility],[address], [place], [address], [place] - [facility] [place] & [place] 05/10/2024 13:50:09 09/01/2024 text/html ROS as noted in the HPI Pt is here wanting another rt hip bursa inj. She reports the inj has been effective for 3 months-[id number] LASHELL TEJADA, DO [address] [place] [address],[address], [place], [address], [place] [facility] - [place] & [place] 09/01/2024 13:19:42 12/03/2024 text/html 3.26.25 right hip bursa injection- helped almost 3 [id number] LASHELL TEJADA, [address], [place], [address], [place] [facility] [facility] [place] 12/06/2024 12:27:27 03/07/2025 text/html 6.27.25 RIGHT hip bursa was injected- effective until [id number] LASHELL TEJADA, [address] [place] [address],[address], [place], [address], [place] [facility] & [place] 03/07/2025 12:15:16 OBGyn Episode No OBEpisode recorded.
--- OUTSIDE RECORDS SUMMARY | 2025-04-12 15:12 | XMS_ITS | Clinical Summary ---
Author Organization [facility] Address [address] [facility] [address] [place] [address] Phone Care Team Providers Care Heel Dipper Name Role Phone Roman Mercer Primary Care Provider [phone] Allergies Active Allergy Reactions Criticality Noted Date [...] 1995 RSV or 60+ (1 - Risk 50-74 years 1-dose series) 2000 Zoster (2 of 3) 06/15/2013 04/20/2013 DTaP/TDaP/Td [...] this topic Medical Devices Implanted Type Area Creative Producer Device Identifier Shelf Expiration Date Model / Serial / Lot Bilateral Iol Lower Back Metal Cage/ 2 Rods/8 Screws Cervical Fusion Right Shoulder Screws/ Anchors Kt Graft 2.8ml Infs Sm Clara Matrx 2-Tn Bnd 5ml Strl H2o - [id number] Implanted:Qty: 1 on 08/14/2022 by Ki Lawson MD at [facility] Bilateral: Spine Lumbar MED[employer]:SOFAMO R DANEK 06/09/2024 [id number] / / [id number] Cage Modulus Alif [id number] 10 Degree - [id number] Implanted:Qty: 1 on 08/14/2022 by Ki Lawson MD at [facility] N/A: Spine Lumbar NUVASIVE 08/12/2026 [id number] / / [id number] [place] 3dp Interfixated Alif [id number] 2pk - [id number] Implanted:Qty: 2 on 08/14/2022 by Ki Lawson MD at [facility] N/A: Spine Lumbar NUVASIVE 04/03/2026 [id number] / / [id number] Procedures Procedure Name Priority Date/Time Associated Diagnosis [...] bone density assessment. Study was performed on [employer]. Bone Density: Region BMD T-score Z-score Femoral [...] - 5.0 mmol/L 11/30/2022 10:10 AM EDT [facility] Comment:Hemolysis detected b y analyzer. Hemolysis at this level may increase the potassium concentration > 0.1 mmol/L. Recommend recollection if clinically indicated. Chloride 97(L) 98 - 107 mmol/L 11/30/2022 10:10 AM EDT [facility] Total CO2 30(H) 22 - 29 mmol/L 11/30/2022 10:10 AM EDT [facility] Anion Gap 10 7 - 16 mmol/L 11/30/2022 10:10 AM EDT [facility] Calcium 9.3 8.8 - 10.4 mg/dL 11/30/2022 10:10 AM EDT [facility] Glucose Lvl 181(H) 82 - 100 mg/dL 11/30/2022 10:10 AM EDT [facility] BUN 45(H) 8 - 23 mg/dL 11/30/2022 10:10 AM EDT [facility] Creatinine 1.80(H) 0.51 - 1.30 mg/dL 11/30/2022 10:10 AM EDT [facility] eGFR (CKD-EPIcr 2020) 29(L) >=60 mL/min/1. 73 m2 11/30/2022 10:10 AM EDT [facility] Comment:Estimated GFR was ca lculated using the CKD-EPIcr (2020) equation refit without race. The equation is recommended by the National Kidney Foundation - [place] Society of Nephrology Task Force. Blood VENOUS BLOOD / Unknown Venipuncture / Unknown 11/30/2022 8:30 AM EDT 11/30/2022 9:16 AM EDT Fern Hallman MD CHEMISTRY ORDERABLES Final Result Performing Organization Address [facility] Co de Phone Number [facility] [employer] [address], [place] [address] [facility] [address] [place] [address] * (ABNORMAL) HEMOGLOBIN A1C (11/26/2022 1:59 PM EDT) Hgb A1C 9.7(H) 4.2 - 5.6 % 11/26/2022 3:06 PM EDT [facility] Est. Avg Glucose 232 mg/dL 11/26/2022 3:06 PM EDT [facility] Blood VENOUS BLOOD / Unknown Venipuncture / Unknown 11/26/2022 1:59 PM EDT 11/26/2022 2:05 PM EDT Narrative [facility] - 11/26/2022 3:06 PM EDT [...] ORDERABLES Fi nal Result Performing Organization Address City/[facility]/ZIP Co de Phone Number [facility] [employer] [address] [facility] [address], [address] [place] [phone] * (ABNORMAL) LIPID SCREEN (11/26/2022 1:59 PM EDT) Cholesterol 143 <200 mg/dL 11/26/2022 3:14 PM EDT [facility] [employer] Comment: < 200 Desirable 200 - 239 Borderline High >= 240 High Triglyceride 383(H) <150 mg/dL 11/26/2022 3:14 PM EDT [facility] [employer] Comment: < 150 Normal 150 - 199 Borderline High 200 - 499 High >= 500 Very High HDL 29(L) >=40 mg/dL 11/26/2022 3:14 PM EDT [employer] Comment: > 60 Optimal 40 - 60 Acceptable < 40 Low LDL Calculated 56 <100 mg/dL 11/26/2022 3:14 PM EDT [employer] Comment: < 100 Optimal 100 - 129 Near or above optimal 130 - 159 Borderline High 160 - 189 High >= 190 Very High Non-HDL-C Calculated 114 <=129 mg/dL 11/26/2022 3:14 PM EDT [facility] [employer] [employer] Comment: <130 Desirable 130-159 Above Desirable 160-189 Borderline High 190-219 High >= 220 Very High Fasting Specimen? No None 023 3:14 PM EDT [facility] Blood VENOUS BLOOD / Unknown Venipuncture / Unknown 11/26/2022 1:59 PM EDT 11/26/2022 2:05 PM EDT Lisa Serrano DO CHEMISTRY ORDERABLES Fi nal Result [facility] [address] [place] [address] [facility] [address] [place] [address] from Last 3 Months or Most Recently Relevant to Health Maintenance Insurance MEDICARE [place] PART A AND B FOR LIFE FOR LIFE MEDICARE [place] PART A AND B Advance Directives For more information, please contact: [phone] * Full Code (Latest Code Status on File) Date Activated Date Inactivated Comments 11/25/2022 8:31 PM 11/30/2022 5:15 PM * Full Code Date Activated Date Inactivated Comments 08/14/2022 3:40 PM 08/15/2022 8:17 PM Care Teams Heel Dipper Relationship Specialty Start Date End Date Roman Mercer [address] [place] [phone] PCP - General Family Medicine 04/24/20
--- OUTSIDE RECORDS SUMMARY | 2025-04-12 15:12 | XMS_ITS | Continuity of Care Document ---
Author Organization [facility] Address [address] [place] [address] Care Team Providers Care Still Worker Helper Name Role Phone DYLAN LEBRON Primary Care Provider MAKENZIE Dahl Quarry Worker [phone] STEPH BLAS Skeet Operator DENIS RAMIREZ Legal Secretary Receptionist Assessment Encounter Date Assessment Date Assessment LastModified by Organization Details LastModified Time 02/11/2025 02/11/2025 -discussed application of estradiol vaginal cream with applicator and also applying pea size amt to urethral meatus. continue vit C (cant do more d/t dexcom) and also probiotic. cont methenamine --- would have to monitor CKD closely.... also alternative is trimethoprim or fosfomycin weekly if a change is needed in future with preventative. followup 3months [place] [id number] Not available 02/11/2025 13:54:01 Plan of Treatment Reminders Order Date Submit Date Provider Last Modified By Organization Details Last Modified Time Details Appointments Follow Up 20 2024 11:40A M Margarita Banks, GAMA Not available Not available Not available Lab urinalysi s, dipstick [email or web address] [facility], [address] [place], [place], [address], 02/11/2025 13:53:39 Referral None recorded. Procedures None recorded. Surgeries None recorded. Imaging None recorded. Medication Orders estradiol 0.01% (0.1 mg/gram) vaginal cream 2024 025 RABIA [facility], [address] [place], [address], 02/11/2025 13:43:27 methenami ne hippurate 1 gram tablet 2024 025 [facility], [facility] [place], [address], 02/11/2025 13:53:23 Patient TargetsNo targets recorded. Patient Instructions Encounter Date Encounter Id Patient Instructions Last Modified By Organization Details Last Modified Time 02/11/2025 [id number] high blood pressure: care instructions Not available 02/11/2025 13:43:25 body mass index: care instructions Not available 02/11/2025 13:43:25 learning about healthy weight Not available 02/11/2025 13:43:25 type 2 diabetes: care instructions Not available 02/11/2025 13:43:25 Urge Incontinence: Care Instructions Not available 02/11/2025 13:43:25 Stress Incontinence: Care Instructions Not available 02/11/2025 13:43:25 chronic kidney disease: care instructions Not available 02/11/2025 13:43:25 medicines to avoid with kidney disease: care instructions Not available 02/11/2025 13:43:25 coronary artery disease: care instructions Not available 02/11/2025 13:43:25 Reason for Referral None Reported. Results Created Date Observation Date Name Description Value Unit Range Abnormal Flag Note LastModifiedBy Organization Detail LastModifiedTime 02/12/2002/11/2025 urina lysis , dipst ick Leukocytes Negati ve Not Available [facility] [address] [place], [address], 02/04/2025 09:05:09 02/12/20 25 02/11/2025 urina lysis , dipst ick Nitrite negati ve Not Available [facility] [address] [place], [address], 02/04/2025 09:05:09 02/12/20 25 02/11/2025 urina lysis , dipst ick Urobilinogen .2 Not Available [facility] [address] [place], [address], 02/04/2025 09:05:09 02/12/20 25 02/11/2025 urina lysis , dipst ick Protein 100 Not Available [facility] [address] [place], [address], 02/04/2025 09:05:09 02/12/20 25 02/11/2025 urina lysis , dipst ick pH 6.0 Not Available [facility] [address] [place], [address], 02/04/2025 09:05:09 02/12/20 25 02/11/2025 urina lysis , dipst ick Blood Negati ve Not Available [facility] [address] [place], [address], 02/04/2025 09:05:09 02/12/20 25 02/11/2025 urina lysis , dipst ick Specific [place] 1.020 Not Available [facility] [address] [place], [address], 02/04/2025 09:05:09 02/12/20 25 02/11/2025 urina lysis , dipst ick Ketone Negati ve Not Available [facility] [address] [place], [address], 02/04/2025 09:05:09 02/12/20 25 02/11/2025 urina lysis , dipst ick Bilirubin Negati ve Not Available [facility] [address] [facility], [place], [address], 02/04/2025 09:05:09 02/12/20 25 02/11/2025 urina lysis , dipst ick Glucose Negati ve Not Available [facility] [address] [place], [address], 02/04/2025 09:05:09 02/12/20 25 02/11/2025 urina lysis , dipst ick Appearance Clear Not Available [facility] [address] [place], [address], 02/04/2025 09:05:09 02/12/20 25 02/11/2025 urina lysis , dipst ick Color Yellow Not Available [facility] [address] [place], [address], 02/04/2025 09:05:09 02/01/20 25 01/28/2025 US, doppl er echoc ardio gram, w/ color flow No observ ation record ed. [facility] [address] [facility], [place], [address], 02/01/2025 08:13:35 02/09/2002/08/2025 XR, foot, 3 or more view No observ ation record ed. [facility] [address], [place], [address], 02/08/2025 15:41:42 02/23/20 25 01/28/2025 US, doppl er echoc ardio gram, w/ color flow No observ [facility] [address] [facility], [place], [address], 02/22/2025 16:21:35 03/01/20 25 03/01/2025 CT, angio gram, head, w/ contr ast No observ ation record ed. [facility] [address], [place], [address], 03/01/2025 14:03:28 03/01/20 25 03/01/2025 CT, head + brain , w/o contr ast No observ ation record ed. [facility] [address], [place], [address], 03/01/2025 14:03:28 03/01/20 25 03/01/2025 XR, chest , 2 view No observ ation record ed. [facility] [address], [place], [address], 03/01/2025 14:24:36 03/01/20 25 03/01/2025 CT, angio gram, neck, w/ contr ast No observ ation record ed. [facility] [address], [place], [address], 03/01/2025 14:24:16 03/02/20 25 02/04/2025 NM, myoca rdial perfu mychal scan, w/ stres s No observ ation record ed. [facility] [address] [facility], [place], [address], 03/04/2025 13:22:20 03/03/20 25 03/01/2025 elect mary anne negrete am No observ ation record ed. [facility] [address], [place], [address], 03/04/2025 13:22:20 Result Notes None recorded. Problems Name Problem SNOMED Code Status Onset Date Resolution Date Notes Provider Name and Address Organization Details Recorded Time Chronic kidney disease stage 3B 854757012 Active GEO [place] - [facility] 11:42:05 Type 2 diabetes mellitus 51980700 Active 2021 Dylan Lebron, CARDIAC CARE NURSE [address], [place], [address] , [place] - [facility] 2 10:07:29 Hypertensive disorder 13349564 Active 2021 Dylan Lebron CARDIAC CARE NURSE [address], [place], [address] , [place] - [facility] 2 10:07:09 Hypercholeste rolemia 40479448 Active 2021 Dylan Lebron APRN [address], [place], [address] , [place] - [facility] 2 10:07:05 Gastroesophag eal reflux disease 307837061 Active 2021 Dylan Lebron APRN [address], [place], [address] , [place] - [facility] 2 10:06:49 Hypothyroidis m 98687078 Active 2021 Dylan Lebron APRN [address], [place], [address] , [place] [facility] 2 10:07:12 Neuropathy 228899119 Active 2021 Dylan Lebron CARDIAC CARE NURSE [address], [place], [address] , [place] [facility] 2 10:07:19 Arthritis 6698271 Active 2021 Dylan Lebron CARDIAC CARE NURSE [address], [place], [address] , [place] [facility] 2 10:06:47 Coronary arteriosclero sis 38724521 Active 2021 Dylan Lebron, CARDIAC CARE NURSE [address], [place], [address] , [place] [facility] 2 10:18:21 Coronary artery bypass grafts x 3 Active 2021 Dylan Lebron, CARDIAC CARE NURSE [address], [place], [address] , [place] [facility] 2 10:18:34 Problem [...] In and Out Catheterization completed Margarita Banks, CARDIAC CARE NURSE [address], [place], [address] [place] - [facility] 02/13/2023 14:34:26 023 [...] [facility] 12/02/2023 10:40:15 970 Caesarean Section completed Fnia Pedro [place] - [facility] 12/02/2023 10:40:15 970 [...] - [facility] 12/17/2021 09:31:50 Cholecystectomy, laparoscopic completed Ida Stears [place] - [facility] 12/17/2021 09:31:56 Appendectomy [...] Name and Address Organization Details Recorded Time 568441 lisinopri l medicatio n rash Not available high 12/17/2021 24887 [facility] Fina Vasquez null, [place] - [facility] 2 10:17:08 076118 Oxycontin medicatio n hallucina tions moderate high 12/17/2021 73525 6 [facility] Fina Vas[place], [place] - [facility] 2 10:18:04 673622 codeine medicatio n rash moderate high 12/17/2021 2670 RxNorm Fina Vasquez [place], [place] - [facility] 2 10:16:43 859566 acetamino phen / oxycodone medicatio n hallucina tions severe high 12/17/2021 70709 3 [facility] Fina Vasquez [place], [place] - [facility] 2 10:17:43 170428 cephalexi n medicatio n eye swelling Not available low 11/11/2022 2231 RxNorm Fina Vasquez [place], [place] - [facility] 3 12:54:33 996041 Macrobid medicatio n diarrhea moderate high 01/13/2023 98968 1 RxNorm vomit ing and diarr hea Fina Vasquez null, [place] - [facility] 3 10:16:12 Medications Name Sig Start Date Stop Date Status Note LastModified by Organization Details LastModified Time Prescript ion - Clarifica tion active Not Available Not Available Not Available Prescript ion - Prior Authoriza tion Request [...] TAKE ONE TABLET BY MOUTH EVERY DAY 03/21 completed Not Available Not Available Not Available carvedilo l 25 mg tablet TAKE 1 TABLET TWICE A DAY 02/03 completed dose change Not Available Not Available Not Available nystatin 100,000 unit/mL oral suspensio n [...] Available Not Available Not Available carvedilo l 12.5 mg tablet Take 1 tablet twice a day by oral route. active Not Available Not Available No t Available clindamyc in HCl 300 mg capsule TAKE ONE CAPSULE BY MOUTH THREE TIMES DAILY FOR 10 DAYS -- FINISH ALL MEDICINE -- 03/21 completed Not Available Not Available Not Available [...] EVERY DAY FOR yeast FOR 3 DAYS 03/21 completed Not Available Not Available Not Available sulfameth oxazole 400 mg-trimet hoprim 80 mg tablet TAKE ONE TABLET BY MOUTH EVERY TWELVE HOURS FOR 10 DAYS -- FINISH ALL MEDICINE -- 09/30 completed Not Available Not Available Not Available ampicilli n 500 mg capsule TAKE ONE CAPSULE BY MOUTH EVERY 6 HOURS FOR infectio n FOR 7 DAYS -- FINISH ALL MEDICINE -- 02/03 completed Not Available Not Available Not [...] 7 DAYS -- FINISH ALL MEDICINE -- 03/21 completed Not Available Not Available Not Available sulfameth oxazole 800 mg-trimet hoprim 160 mg tablet TAKE ONE TABLET BY MOUTH TWICE DAILY FOR 7 DAYS FOR uti -- FINISH ALL MEDICINE -- 03/21 completed Not Available Not Available Not Available [...] rectal route as needed for 3 days. 12/19 completed Not Available Not Available Not Available benzonata te 100 mg capsule TAKE ONE [...] lispro (U-100) 100 unit/mL subcutane ous solution Inject 80 sliding scale doses every 24 hours by subcutan eous route as directed . 2024 active Not Available Not Available Not Avai lable levofloxa idalia 500 mg tablet TAKE ONE TABLET BY MOUTH EVERY 24 HOURS FOR infectio n FOR 7 DAYS -- FINISH ALL MEDICINE -- 02/03 completed Not Available Not Available Not [...] completed Not Available Not Available Not Available Augmentin 500 mg-125 mg tablet Take 1 tablet every 12 hours by oral route for 10 days. 12/23 completed Not Available Not Available Not Available [...] Not Available Not Available Not Available Paradigm [place] 3 mL 08/22 completed Not Available Not Available Not Available rosuvasta tin 40 mg tablet Take 1 tablet every day by oral route. 2024 active Not Available Not Available Not Avai lable nitrofura ntoin monohydra te/macroc rystals 100 mg [...] completed Not Available Not Available Not Available Omnipod 5 G6-G7 Pods (Gen 5) subcutane ous cartridge change q 72 hr 2024 active Not Available Not Available Not Avai lable Vitals Date Recorded Body height Body mass index (BMI) Body weight Heart rate Oxygen saturation Oxygen saturation in Arterial blood by Pulse oximetry Respiratory rate Pain severity - 0-10 verbal numeric rating [Score] - Reported Systolic And Diastolic Provider Name and Address Organization Details Last Updated DateTime 5 151.13 cm 27 kg/m2 40986.5 6 g 95 /min 96 % 96 % 18 /min 0 138/84 mm[Hg] Xiomara Cai [place] - [facility] 5 13:15:06 Social History Question Answer Notes LastModified by Organizat ion Details LastModified Time Tobacco Smoking Status Never Smoker Dia perales [place] - [facility] 12/17/2021 09:30:03 Do You Have [...] Or The Highest Degree You Have Received? [id number] Information not available 12/17/2021 Have There Been Any Changes To Your Family Or Social Situation? No Information no t available 07/14/2023 What Is The Fluoride Status Of Your Home? Unknown Information not available 07/14/2023 Have You Recently Or Are You Planning To Travel To An Area With Zika Virus? No Information not available 07/14/2023 Do You Have A Medical Power Of Director Of Primary Care? No Information not available 07/14/2023 What Was [...] not available 07/14/2023 Are you able to walk independently without assistance or assistive devices? YESWOREST Information not available 07/14/2023 Do you have difficulty doing errands alone? No Information not available 07/14/2023 Are you able to care for yourself independently? Yes Information not available 12/17/2021 Do you have difficulty dressing, bathing, grooming, or toileting? No Information not available 07/14/2023 Do you or have you ever used e-cigarettes or vape? Never used electronic cigarettes Information not available 12/20/2021 What is your exercise level? None Information not available 12/20/2021 Mental Status Question Answer Note LastModified by Organizat ion Details LastModified Time Do you feel stressed (tense, restless, nervous, or anxious, or unable to sleep at night)? [id number] Information not available 12/20/2021 Do you have difficulty concentrating, remembering or making decisions? No Information no t available 07/14/2023 Family History Relationship Description Onset Age of this Age Resolved Age Notes LastModified by Organization Details LastModified Time Mother Malignant neoplasm of breast bstears Not available 2021 09:28:40 [...] high-dose, quadrivalent, PF 02/21/2022 completed Dylan Lebron, CARDIAC CARE NURSE [address], [place], [address], [place] - [facility] 03/26/2022 17:30:58 Influenza, high-dose, quadrivalent, PF 04/25/2023 completed Fina Vasquez null, [place] - [facility] 04/25/2023 13:24:26 Influenza, high-dose, trivalent, PF 02/24/2024 completed Fina Vasquez [place] - [facility] 03/11/2024 17:52:11 Influenza, high-dose, trivalent, PF 03/21/2025 completed Fina Vas[place] [facility] 03/21/2025 13:00:39 COVID-19, mRNA, LNP-S, PF, 100 mcg/0.5mL dose or 50 mcg/0.25mL dose 08/02/2020 completed Fina Vas[place] - [facility] 08/22/2022 14:19:25 COVID-19, mRNA, LNP-S, PF, 100 mcg/0.5mL dose or 50 mcg/0.25mL dose 08/31/2020 completed Fina Vasquez null[place] - [facility] 08/22/2022 14:19:25 COVID-19, mRNA, LNP-S, PF, 100 mcg/0.5mL dose or 50 mcg/0.25mL dose 04/11/2021 completed Fina perales, GEO - [facility] 08/22/2022 14:19:25 Tdap 04/20/2013 completed Fina perales, GEO - [facility] 08/22/2022 14:19:25 zoster live 04/20/2013 completed Fina perales, GEO - [facility] 08/22/2022 14:19:25 Influenza, high-dose, trivalent, PF 05/16/2021 completed Fina perales, GEO - [facility] 08/22/2022 14:19:25 Past Encounters Encounter ID Performer Location Encounter Start Date Encounter Closed Date Diagnosis/Indication Diagnosis SNOMED-CT Code Diagnosis ICD10 Code Diagnosis IMO Codes Diagnosis Note [id number] Margarita Banks APRN [facility] [address] [place] [address] 02/11/2025 12:58:26 02/11/2025 14:05:53 Recurrent urinary tract infection 676587005 N39.0 -continue estradiol VC. Overactive urinary bladder 824715516 N32.81 -avoid anticholin ergics in this patient d/t potential patient harm. anticholin ergics interact with currently rx medication s and combo may incr. 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 Also [...] d gemtesa- caused swelling in legs. Hydronephrosis 90056026 N13.30 Chronic ki dney disease stage 4 709323407 N18.4 Hypertensive disorder 38 368547 I10 Type 2 lexx betes mellitus 35467772 E11.21 Coronary arteriosclerosis 22331297 I25.10 Mixed urin nasra incontinence 428880587 N39.46 Body mass index 25-29 - overweight 220035870 Z68.28 BMI 28.9 Overweight 204430069 E66 .3 [id number] Dylan Lebron APRN [address] [address] 02/03/2025 08:58:16 02/03/2025 10:21:01 Medical equipment or device education 500684322 Z46.81 855266 pt did not remember her id or password, called omnipod and had them reset. omnipod 5 set up with settings from omnipod dash. pump working. educated pt/ about device and dexcom. pt/ states the understand and no questions at this time Health Concerns Section Related Observation LastModified by Organization Detai ls LastModified Time None Recorded Concern Status LastModified by Organization Details LastModified Time None Recorded Payers Encounter Date Sequence Insurance Name Policy Number Policy Elena Covered Member ID Elena Member ID Guarantor Name 02/11/2025 2 FOR LIFE ( - MEDICARE SUPPLEMENT) [id number] Mariano Yesica [id number] Jillian Robert 02/11/2025 1 [place] Jillian Robert [id number] Jillian Robert Notes Date Note Type Note Provider Name and Address Organization Details Recorded Time text/html Lower Urinary Tract Symptoms (LUTS)Reported by PatientHPIFor associated symptoms, patient reportsfrequency (improved with gemtesa. now only 3-4x),mixed incontinence (improved with gemtesa.), andnocturia 1 times a nightbut reportsno abdominal pain,no groin pain,no flank pain,no low back pain,no chills,no fever,no constipation,no diarrhea,no nausea,no vomiting,no temperaure,good force of stream,no straining,no post void dribbling,no hesitancy,empties well,no urgency,no dysuria,no urine odor, andno gross hematuria. For location, patient reportsbladder. For quality, patient reportsworsening. For severity, patient reportsbothersome. For onset/timing, patient reports> 1 year. For duration, patient reportsconstant. For context, patient reportshas seen urologist (dr mojica.),number of vaginal deliveries: __ (csection x 1 in 1969), andprevious hysterectomy (approx 2002, eugenie and bso, bladder tack.).-11/08/22- UCx- ecoli-12/27/22- Ucx- enterococcus faecalis -mid december 2022- d/c summary from [facility] reports admit for left pyelo UCX grew klebsiella pneumoniae. -01/13/23- UCx negative.-01/13/23- creat 2.2, gfr 27. -01/13/23- CT abd pel w/o- per report- moderate hydronephrosis and hydroureter on the left, stable. moderate thickening of the bladder, likely d/t under distension. -01/14/23- d/c summary from [facility]- reviewed. admitted 01/13/23 for uti. ucx [...] enterococcus (tx agumentin 875mg bid x 10 day)ROS as noted in the HPI patient referred by dylan lebron, for ilya [...] sees nephrology at . seeing them q6mo. 02/11/25comes to followup on ilya and oab, ckd st 4, hydronephrosisusing premarin cream She continues on methenamine and vitamin C Margarita Banks, CARDIAC CARE NURSE [address], [place], [address], [place] - [facility] 02/11/2025 13:54:28 OBGyn Episode No OBEpisode recorded.
--- OUTSIDE RECORDS SUMMARY | 2025-04-12 15:12 | XMS_ITS | Continuity of Care Document ---
Author Organization [place] - Ghada Day [facility] Address [address] [place] [address] Care Team Providers Care Home Performance Consultant Name Role Phone DYLAN KING Primary Care Provider MAKENZIE Dahl Salesperson Neckties [phone] STEPH BLAS Fuel Dock Attendant DENIS RAMIREZ Podiatric Surgeon Assessment Encounter Date Assessment Date Assessment LastModified by Organization Details LastModified Time 03/21/2025 03/21/2025 labs next visit [facility] Not available 03/21/2025 12:15:06 Plan of Treatment Reminders Order Date Submit Date Provider Last Modified By Organization Details Last Modified Time Details Appointments Follow Up 20 2024 11:40A M Margarita Banks, CRM SOLUTION ARCHITECT Not available Not available Not available Lab None recorded. Referral None recorded. Procedures None recorded. Surgeries None recorded. Imaging None recorded. Medication Orders gabapenti n 600 mg tablet 2024 025 [facility], [address] [place] [address], [address], 03/21/2025 12:14:58 Patient TargetsNo targets recorded. Patient InstructionsNo instructions recorded. Reason for Referral None Reported. Results Created Date Observation Date Name Description Value Unit Range Abnormal Flag Note LastModifiedBy Organization Detail LastModifiedTime 02/23/2001/28/2025 US, doppl er echoc ardio gram, w/ color flow No observ ation [facility] ed. [facility] [address] [facility], [place], [address], 02/22/2025 16:21:35 03/01/20 25 03/01/2025 CT, angio gram, head, w/ contr ast No observ ation record ed. [facility] [address], [place], [address], 03/01/2025 14:03:28 03/01/20 25 03/01/2025 CT, head + brain , w/o contr ast No observ ation record ed. [facility] [address], [place], [address], 03/01/2025 14:03:28 03/01/20 25 03/01/2025 XR, chest , 2 view No observ ation record ed. [facility] [address], [place], [address], 03/01/2025 14:24:36 03/01/20 25 03/01/2025 CT, angio gram, neck, w/ contr ast No observ ation record ed. [facility] [address], [place], [address], 03/01/2025 14:24:16 03/02/20 25 02/04/2025 NM, myoca rdial perfu mychal scan, w/ stres s No observ ation record ed. [facility] [address] [facility], [place], [address], 03/04/2025 13:22:20 03/03/20 25 03/01/2025 elect mayr anne negrete am No observ ation record ed. [facility] [address], [place], [address], 03/04/2025 13:22:20 Result Notes None recorded. Problems Name Problem SNOMED Code Status Onset Date Resolution Date Notes Provider Name and Address Organization Details Recorded Time Chronic kidney disease stage 3B 215145508 Active Fina perales, [place] - [facility] 5 11:42:05 Type 2 diabetes mellitus 79873995 Active 2021 Dylan King, CRM SOLUTION ARCHITECT [address], [place], [address] , [place] - [facility] 2 10:07:29 Hypertensive disorder 18046171 Active 2021 Dylan King, CRM SOLUTION ARCHITECT [address], [place], [address] , [place] - [facility] 2 10:07:09 Hypercholeste rolemia 43941844 Active 2021 Dylan King, CRM SOLUTION ARCHITECT [address], [place], [address] , [place] [facility] 2 10:07:05 Gastroesophag eal reflux disease 578397792 Active 2021 Dylan King, CRM SOLUTION ARCHITECT [address], [place], [address] , [place] [facility] 2 10:06:49 Hypothyroidis m 36719484 Active 2021 Dylan King, CRM SOLUTION ARCHITECT [address], [place], [address] , [place] [facility] 2 10:07:12 Neuropathy 066835969 Active 2021 Dylan King, CRM SOLUTION ARCHITECT [address], [place], [address] , [place] [facility] 2 10:07:19 Arthritis 3437434 Active 2021 Dylan King, CRM SOLUTION ARCHITECT [address], [place], [address] , [place] [facility] 2 10:06:47 Coronary arteriosclero sis 19090461 Active 2021 Dylan King, CRM SOLUTION ARCHITECT [address], [place], [address] , [place] [facility] 2 10:18:21 Coronary artery bypass grafts x 3 Active 2021 Dylan King, CRM SOLUTION ARCHITECT [address], [place], [address] , [place] [facility] 10:18:34 Problem Notes None recorded. Procedures Surgical History Date Name Laterality Status Provider Name and Address Organization Details Recorded Time 025 Medication Reconcilliation completed Fina Pedro [place] - [facility] 11/29/2024 13:05:51 025 Advance Care Planning completed Finaradha Vasquez [facility] 11/19/2024 10:41:02 025 IV Infusion completed Fina Vasquez [facility] 11/19/2024 15:44:19 025 Functional Status Assessed completed Finaradha Vasquez [facility] 11/19/2024 10:41:02 024 Date of Last Colonoscopy completed Dia Youssef [place] - [facility] 2024 13:27:50 024 Medication Reconcilliation completed Finaradha Vasquez [facility] 12/02/2023 10:36:18 023 In and Out Catheterization completed Margarita Banks, CRM SOLUTION ARCHITECT [address], [place], [address], [facility] [place] - [facility] 02/13/2023 14:34:26 023 Medication Reconcilliation completed Finaradha Vasquez [facility] 01/31/2023 10:55:15 023 Medication Reconcilliation completed Fina Pedro [facility] 01/06/2023 10:21:27 023 Medication Reconcilliation completed Fina Vasquez [facility] 12/12/2022 10:55:58 023 Medication Reconcilliation completed Finaradha Vasquez [facility] 11/25/2022 14:44:11 023 Date of Last Mammogram completed Dianando Leivas [place] - [facility] 10/17/2022 13:02:19 023 Most Recent Mammogram completed Dia Calis [place] - [facility] 10/17/2022 13:02:44 023 Back Surgery completed Fina Vasquez [place] - [facility] 12/02/2023 10:40:15 022 Most Recent Bone Density completed Dianando Leivas [place] - [facility] 12/20/2021 15:34:15 022 [...] Name and Address Organization Details Recorded Time 459710 lisinopri l medicatio n rash Not available high 12/17/2021 37648 RxNorm Fina Vasquez [place] - [facility] 2 10:17:08 522147 Oxycontin medicatio n hallucina tions moderate high 12/17/2021 02905 6 RxNorm F[place] - [facility] 2 10:18:04 538081 codeine medicatio n rash moderate high 12/17/2021 2670 RxNorm Fina Vasquez null, [place] - [facility] 2 10:16:43 672100 acetamino phen / oxycodone medicatio n hallucina tions severe high 12/17/2021 61362 3 RxNorm Fina Vasquez [place] - [facility] 2 10:17:43 413383 cephalexi n medicatio n eye swelling Not available low 11/11/2022 2231 RxNorm Fina Vasquez [place] - [facility] 3 12:54:33 959119 Macrobid medicatio n diarrhea moderate high 01/13/2023 73781 1 RxNorm vomit ing and diarr hea [...] Not Available Not Available Not Available [facility] [place] 3 mL 08/22 completed Not Available Not [...] Organization Details Last Updated DateTime 151.13 cm 26.8 kg/m2 30571.9 7 g 97.6 [degF] 81 /min 95 % 95 % 18 /min 0 132/74 mm[Hg] Fina Vasquez [place] - [facility] 11:11:03 Social History Question Answer Notes LastModified by [...] Or The Highest Degree You Have Received? [id number] Information not available 12/17/2021 Have There Been Any Changes To Your Family Or Social Situation? No Information no t available 07/14/2023 What Is The Fluoride Status Of Your Home? Unknown Information not available 07/14/2023 Have You Recently Or Are You Planning To Travel To An Area With Zika Virus? 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 No Information not available 07/14/2023 What Was [...] anxious, or unable to sleep at night)? [id number] Information not available 12/20/2021 Do you have [...] high-dose, quadrivalent, PF 02/21/2022 completed Dylan King, CRM SOLUTION ARCHITECT [address], [place], [address], [place] - [facility] 03/26/2022 17:30:58 Influenza, high-dose, quadrivalent, PF 04/25/2023 completed Fina Vasquez [place] [facility] 04/25/2023 13:24:26 Influenza, high-dose, trivalent, PF 02/24/2024 completed Fina [place] [facility] 03/11/2024 17:52:11 Influenza, high-dose, trivalent, PF 03/21/2025 completed F[place] [facility] 03/21/2025 13:00:39 COVID-19, mRNA, LNP-S, PF, 100 mcg/0.5mL dose or 50 mcg/0.25mL dose 08/02/2020 completed Fina [place] [facility] 08/22/2022 14:19:25 COVID-19, mRNA, LNP-S, [...] ICD10 Code Diagnosis IMO Codes Diagnosis Note [id number] Dylan King APRN [address] [address] 03/21/2025 10:55:35 03/21/2025 12:17:33 Neuropathy 905210084 G62.9 Pt compliant with plan of careKamegha reviewed and appropriat emedicatio n compliance discussedC ontrol substance agreement on fileuds: Arthritis 5241674 M19.90 Influenza vaccine needed [id number] 106 Z23 Health Concerns Section Related Observation LastModified by Organization Detai ls LastModified Time None Recorded Concern Status LastModified by Organization Details LastModified Time None Recorded Payers Encounter Date Sequence Insurance Name Policy Number Policy Elena Covered Member ID Elena Member ID Guarantor Name 03/21/2025 2 FOR LIFE ( - MEDICARE SUPPLEMENT) [id number] Mariano Yesica [id number] Jillian Robert 03/21/2025 1 [place] Jillian Robert [id number] Jillian Robert Notes Date Note Type Note Provider Name and Address Organization Details Recorded Time 03/21/2025 text/html 74 yr old female presents for refills on medications. 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
--- OUTSIDE RECORDS SUMMARY | 2025-04-12 15:12 | XMS_ITS | Data Portability ---
Author Organization [facility] Address [address] [facility] [address] [address] [place] [address] Assessment Encounter Date Assessment Date Assessment LastModified [...] Orders Reglan 5 mg tablet 2017 018 [facility], [address] [place] [address] [address] [place] [place], [phone], 8 15:03:03 scopolamin e 1 mg over 3 days transderma l patch 2017 018 [facility], [address] [place] [address] [address], [place], [place], [phone], 2 10:19:31 Patient TargetsNo targets recorded. Patient InstructionsNo instructions recorded. Reason for Referral None Reported. Results Created Date Observation Date Name Description Value Unit Range Abnormal Flag Note LastModifiedBy Organization Detail LastModifiedTime 05/11/20 18 05/11/2018 XR, lumbo sacra l spine , 2 or [address] [address] Chloezenaida balderrama Name: JILLIAN balderrama : 951 [...] Barker MD on 018 3:54 PM [email or web address] [facility] Radiology [facility] [address] [place] [address], [address], 05/11/2018 17:22:37 Result Notes Documentation Provider Name and Address Organization Details Recorded Time Xr, Lumbosacral Spine, 2 Or 3 View : [facility] [address] [place] [address] Patient Name: JILLIAN ROBERT Patient : 1950 Patient Ordering Provider: THOMPSON [...] By: Amilcar Barker MD PSON DEMPSEY MD [address] [place] [address], [address], [facility] 05/11/2018 17:22:37 Procedures Surgical History Date Name Laterality Status Provider Name and Address Organization Details Recorded Time 04/08/20 18 POSTERIOR LUMBAR INTERBODY FUSION, SINGLE INTERSPACE (SURG) completed Katt Elam [facility] 04/13/2018 09:04:24 tonsillectomy completed [facility] 03/09/2018 14:07:34 Appendectomy completed [facility] 03/09/2018 14:07:44 section completed [facility] 03/09/2018 14:08:11 Cholecystectomy w/cholang completed [facility] 03/09/2018 14:08:34 complete repair of rotator cuff completed [facility] 03/09/2018 14:08:48 hysterectomy completed Angi Evans [facility] 03/09/2018 14:08:59 Neck Surgery completed Anig Evans [facility] 03/09/2018 14:09:09 coronary artery bypass graft completed Angi Evans [facility] 03/09/2018 14:09:28 Imaging Results None recorded. Procedure Notes None recorded. Medical Equipment None Reported. Allergies Allergen ID Allergen Name Allergen Category Reaction Reaction Severity Criticality Documentation Date Start Date Code Code System Note Provider Name and Address Organization Details Recorded Time 596771 codeine medicatio n Not available Not available Not available 05/03/20162012 2670 RxNorm Comme nt: Creat ed By: Herlinda glynn Date: 2012 3:01: 29 PM; Not Available [facility] 6 09:24:07 242422 acetamino phen / oxycodone medicatio n Not available Not available Not available 03/09/2018 51647 3 RxNorm Angi Evans [facility] 8 14:10:48 116028 lisinopri l medicatio n rash Not available Not available 07/24/2023 10404 RxNorm Nikki Marcano [facility] 4 11:37:15 910870 cephalexi n medicatio n eye swelling Not available Not available 07/24/2023 2231 RxNorm Nikki Marcano [facility] 4 11:37:15 144219 Oxycontin medicatio n hallucina tions moderate Not available 07/24/2023 64041 6 RxNorm Nikki Marcano [facility] 4 11:37:15 289555 Macrobid medicatio n diarrhea moderate Not available 07/24/2023 15911 1 RxNorm Nikki Marcano [facility] 4 11:37:15 Medications Name Sig Start [...] tablet Not Available Not Available Not Available [place] 7.5 mg-325 mg tablet Take 1 tablet [...] Available Not Available Not Avai lable [facility] [place] 3 mL active Not Available Not Available [...] Body mass index (BMI) Body weight Systolic And Diastolic Provider Name and Address Organization Details Last Updated DateTime 03/09/2018 149.86 cm 29.1 kg/m2 89553.3 g 130/80 mm[Hg] Angi Evans [facility] 03/09/2018 14:10:30 Date Recorded Body height Body mass index (BMI) Body weight Systolic And Diastolic Provider Name and Address Organization Details Last Updated DateTime 05/11/2018 149.86 cm 29.1 kg/m2 29848.3 g 130/82 mm[Hg] Angi Evans [facility] 05/11/2018 16:06:10 Social History Question Answer Notes LastModified by Organizat ion Details LastModified Time Tobacco Smoking Status Never Smoker Angi Evans [facility] 03/09/2018 14:07:26 What Was The Date [...] Time Influenza, high-dose, quadrivalent, PF 02/21/2022 completed [facility] 07/24/2023 11:37:18 Influenza, high-dose, quadrivalent, PF 04/25/2023 completed [facility] 07/24/2023 11:37:18 COVID-19, mRNA, LNP-S, PF, 100 mcg/0.5mL dose or 50 mcg/0.25mL dose 08/02/2020 completed [facility] 07/24/2023 11:37:18 COVID-19, mRNA, LNP-S, PF, 100 mcg/0.5mL dose or 50 mcg/0.25mL dose 08/31/2020 completed [facility] 07/24/2023 11:37:18 COVID-19, mRNA, LNP-S, PF, 100 mcg/0.5mL dose or 50 mcg/0.25mL dose 04/11/2021 completed [facility] 07/24/2023 11:37:18 Tdap 04/20/2013 [facility] 11:37:18 zoster live 04/20/2013 [facility] 07/24/2023 11:37:18 Influenza, high-dose, trivalent, PF 05/16/2021 completed Nikkianuradha Marcano [facility] 07/24/2023 11:37:18 Past Encounters Encounter ID Performer Location Encounter Start Date Encounter Closed Date Diagnosis/Indication Diagnosis SNOMED-CT Code Diagnosis ICD10 Code Diagnosis IMO Codes Diagnosis Note [id number] THOMPSON DEMPSEY MD [facility] [address] [place] [address] 03/09/2018 13:17:46 03/09/2018 14:49:59 Lumbar spondylolisthesis 7528354199 57994 M43.16 [id number] [facility] [address] [place] [address] 04/20/2018 14:08:30 04/20/2018 15:04:27 Nausea 407103442 R11.0 [id number] THOMPSON DEMPSEY [facility] [address] [place] [address] 05/11/2018 15:08:15 05/12/2018 10:01:34 Postoperative care 329380670 Z48.89 Health Concerns Section Related Observation LastModified by Organization Detai ls LastModified Time None Recorded Concern Status LastModified by Organization Details LastModified Time None Recorded Advance Directives Directive None Recorded Payers Insurance Date Sequence Insurance Name Policy Number Policy Elena Covered Member ID Elena Member ID Guarantor Name 05/03/2020 2 FOR LIFE ( - MEDICARE SUPPLEMENT) Jillian Robert [id number] Jillian Robert 05/03/2020 1 [place] Jillian Robert [id number] Jillian Robert 06/19/2018 2 FOR LIFE ( - MEDICARE SUPPLEMENT) Jillian Robert [id number] Jillian Robert Notes Date Note Type Note Provider Name and Address Organization Details Recorded Time 03/09/2018 text/html Mrs. Jillian Robert is a 67 year old retiree with [...] right leg. She underwent physical therapy at [facility]. She is unable take anti-inflammatorie s due to renal issues. She has trialed steroid shots as well as a TENS unit. She is not currently on any narcotic pain medication. She takes Neurontin for diabetic pain Sada perales, [facility] 04/06/2018 17:11:28 05/11/2018 text/html ROS as noted in the HPI Mrs. Jillian Robert is a 67-year-old female status post [...] to today's follow-up. THOMPSON DEMPSEY MD [address] [place], [address], [facility] 05/11/2018 17:17:16 OBGyn Episode No OBEpisode recorded.
--- OUTSIDE RECORDS SUMMARY | 2025-04-12 15:12 | XMS_ITS | Clinical Summary ---
Author Organization [facility] Address [address] [place] [phone] Phone Care Team Providers Care Cryptozoologist Name Role Phone Maine Patel [phone] Conditions or Problems Problem Name Problem Code Onset Date Status Entry Date Provider Comment Standard Description Annotate PAIN IN HIP, RIGHT M25.551 (ICD-10-CM ) 02/12 Active 02/12 Mainejone Patel Pain in right hip *AFTRCR FOLLOW SRG MUSCULOSKELETAL SYSTEM NEC Z48.89 (ICD-10-CM ) 08/26 Active 08/26 Pat Short MA Encounter for other specified surgical aftercare OVERWEIGHT [id number] (SNOMED CT) Active Pat Short MA Overweight LUMBAR SPONDYLOLISTHESI S, ACQUIRED, 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 (ICD-10-CM ) Active 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 ENGINEER 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 sis, lumbar region LUMBAR RADICULOPATHY [id number] (SNOMED CT) Active Dianne Chatterjee MA Lumbar radiculopathy Medications Medication Instructions Start Date Stop Date Generic Name NDC Provider ESTRADIOL 0.1 MG/GM CREA estradiol 12270983646 Flor Colón MYRBETRIQ 25 MG [id number] mirabegron 28614515291 Flor Colón FLUCONAZOLE 150 MG TABS fluconazole 29907387311 Flor Colón OMEPRAZOLE 40 MG CPDR omeprazole 16963846119 Flor Colón VENLAFAXINE HCL ER 75 MG [id number] venlafaxine 46095986718 Flor Colón GNP ADVANCED PROBIOTIC CAPLET 60CT take one caplet BY MOUTH EVERY DAY GNP ADVANCED PROBIOTIC CAPLET 60CT Flor Katarzyna OMNIPOD DASH PODS (GEN 4) USE DIRECTED (CHANGE omnipod every 72 hours) insulin pump cart,cont inf,bt 67774284976 Flor Katarzyna ROSUVASTATIN CALCIUM 40 MG TABS rosuvastatin 16693982137 Flor Colón Vitamin C 500 mg tablet TAKE ONE TABLET BY MOUTH TWICE DAILY ascorbic acid (vitamin c) 30942081295 Flor Colón LEVOTHYROXINE SODIUM 112 MCG TABS levothyroxine 53308805121 Flor Colón INSULIN LISPRO 100 UNIT/ML SOLN insulin lispro 75258371974 Leonid Colón GABAPENTIN 600 MG TABS gabapentin 14128551861 Flor Colón CARVEDILOL 25 MG TABS carvedilol 77907555513 Flor Colón VASCEPA 0.5 GM CAPS icosapent ethyl 71390633836 Flor Colón ALLOPURINOL 100 MG TABS allopurinol 64771093859 Flor Colón OMEPRAZOLE 10 MG CPDR omeprazole 08027728136 Flor Colón VENLAFAXINE HCL 25 MG TABS venlafaxine 49613062879 Flor Colón TRAMADOL HCL 50 MG TABS Take 1 tablet by mouth every six hours as needed for pain tramadol 64627347174 Ki Lawson MD TRAMADOL HCL 50 MG TABS Take 1 tablet by mouth every six hours tramadol 43070955822 Ki Lawson MD TRAMADOL HCL 50 MG TABS tramadol 64389025820 Ly STROUD TRAMADOL HCL 50 MG TABS Take 1 tablet by mouth every six hours as needed for pain tramadol 72112833734 Ly STROUD OMNIPOD DASH PODS (GEN 4) insulin pump cart,cont inf,bt 46731388713 Dianne Chatterjee MA ROSUVASTATIN CALCIUM 40 MG TABS rosuvastatin 19264775175 Dianne Chatterjee MA VASCEPA 1 GM CAPS icosapent ethyl 17134905717 Dianne Chatterjee MA NITROFURANTOIN MONOHYD MACRO 100 MG CAPS nitrofurantoin monohyd/m-cryst 16190705096 Dianne Chatterjee MA CEFDINIR 300 MG CAPS cefdinir 01950308971 Dianne Chatterjee MA LEVOXYL 112 MCG TABS levothyroxine 79649363794 Dianne Chatterjee MA LEVOFLOXACIN 500 MG TABS levofloxacin 02004399110 Dianne Chatterjee MA CEPHALEXIN 500 MG CAPS cephalexin 88361780185 Dianne Chatterjee MA TRAMADOL HCL 50 MG TABS tramadol 24523287329 Dianne Chatterjee MA INSULIN LISPRO 100 UNIT/ML SOLN insulin lispro 49129285224 Dianne Chatterjee MA OMEPRAZOLE 40 MG CPDR omeprazole 74394756374 Dianne Chatterjee MA HYDROCODONE-ACETA MINOPHEN 5-325 MG TABS hydrocodone-acet aminophen 27649162365 Dianne Chatterjee MA ALLOPURINOL 100 MG TABS allopurinol 85461137479 Dianne Chatterjee MA FLUCONAZOLE 150 MG TABS fluconazole 75231840836 Dianne Chatterjee MA OXYBUTYNIN CHLORIDE ER 10 MG [id number] oxybutynin chloride 77596581102 Dianne Chatterjee MA GABAPENTIN 600 MG TABS gabapentin 36309139595 Dianne Chatterjee MA CARVEDILOL 25 MG TABS carvedilol 56613716731 Dianne Chatterjee MA VENLAFAXINE HCL ER 75 MG [id number] venlafaxine 09674189133 Dianne Chatterjee MA FLUCONAZOLE 100 MG TABS fluconazole 45194383065 Dianne Chatterjee MA Medications Administered No information [...] Care Type Date Detail Referral Orthopedic Refer [address], [address] Pending order X-Ray Lumbar AP Lateral & [...] Procedures Code Procedure Name Date Entry Date [facility]-[id number] Flu Shot Previously Received [id number] Pneumonia Vaccine Previously Received 02/08/25 [facility]-[id number] Medications Documented [id number] Flu Shot Previously Received SCT-[id number] Pneumonia Vaccine Previously Received 01/05/20 SCT-[id number] Medications Documented SCT-[id number] Pneumonia Vaccine Previously Received 01/03/18 87771 Greater trochanteric bursa injection & follow up with ordering SCT-[id number] Flu Shot Previously Received SCT-[id number] Pneumonia Vaccine Previously Received 29/10/21 SCT-[id number] Medications Documented [id number] Flu Shot Previously Received SCT-[id number] Pneumonia Vaccine Previously Received 29/09/16 SCT-[id number] Medications Documented SCT-[id number] Flu Shot Previously Received SCT-[id number] Pneumonia Vaccine Previously Received 30/08/19 SCT-[id number] Medications Documented [id number] Flu Shot Previously Received SCT-[id number] Pneumonia Vaccine Previously Received 01/08/02 SCT-[id number] Medications Documented [id number] Flu Shot Previously Received [facility]-[id number] Pneumonia Vaccine Previously Received 30/05/02 [facility]-[id number] Medications Documented [facility]-[id number] Flu Shot Previously Received [facility]-[id number] Medications Documented [facility]-[id number] Pneumonia Vaccine Previously Received 30/03/21 Vital Signs Date Name Value Unit Description BMI (Body Mass Index) 27.34 kg/m2 Bod y Mass Index (Ratio) Height 60 [in_us] height E&M Weight Measured 140 [lb_av] weight E& M Weight Measured 140 [lb_av] weight E& M Immunizations No information available. Advance Directives No information available.
--- OUTSIDE RECORDS SUMMARY | 2025-04-12 15:13 | XMS_ITS | Data Portability ---
Author Organization [facility] Address [address] [place] [address] Care Team Providers Care Reserve Operator Name Role Phone DYLAN LEBRON Primary Care Provider MAKENZIE Dahl Transcript Clerk [phone] STEPH BLAS Receiving Dock Checker DENIS RAMIREZ Recreational Vehicle Resort Manager Assessment Encounter Date Assessment Date Assessment LastModified by Organization Details LastModified Time 11/29/2024 11/29/2024 -Medications were reviewed and any necessary updates and renewals were made, patient instructed to complete as prescribed. -The potential side effects of medications were discussed. -Counseling was done on care goals and ways to prevent future hospitalization s. -Further treatment per orders listed below. [email or web address] Not available 11/29/2024 13:05:51 02/11/2025 02/11/2025 -discussed application of estradiol vaginal cream with applicator and also applying pea size amt to urethral meatus. continue vit C (cant do more d/t dexcom) and also probiotic. cont methenamine --- would have to monitor CKD closely.... also alternative is trimethoprim or fosfomycin weekly if a change is needed in future with preventative. followup 3months Not available 02/11/2025 13:54:01 03/21/2025 03/21/2025 labs next visit [email or web address] Not availabl e 03/21/2025 12:15:06 Plan of Treatment Reminders Order Date Submit Date Provider Last Modified By Organization Details Last Modified Time Details Appointments Follow Up 20 2024 11:40A M Margarita Banks, CLINICAL TECH Not available Not available Not available Lab urinalysi s, dipstick 2024 025 [facility], [address] [facility], [place], [address], 02/11/2025 13:53:39 CBC w/ auto diff 2024 025 [facility], [address], [address], [place], [address], 12/10/2024 04:06:40 magnesium , serum or plasma 2024 025 [facility], [address], [address], [place], [address], 12/03/2024 17:07:32 urinalysi s, dipstick 2024 025 [facility], [address] [place], [address], 11/29/2024 15:53:01 culture, urine 2024 025 [facility], [address], [address], [place], [address], 12/03/2024 17:07:32 C-peptide , serum 2024 025 [facility], [address], [address], [place], [address], 12/03/2024 17:07:[address] referral - possible seizures 2024 025 [facility], [address] [place] [address], [address], 02/22/2025 15:25:49 Procedures None recorded. Surgeries None recorded. Imaging None recorded. Medication Orders gabapenti n 600 mg tablet 2024 025 [facility], [address] [place] [address], [address], 03/21/2025 12:14:58 estradiol 0.01% (0.1 mg/gram) vaginal cream 2024 025 [facility], [address] [place] [address], [address], 02/11/2025 13:43:27 methenami ne hippurate 1 gram tablet 2024 025 [facility], [address] [place] [address], [address], 02/11/2025 13:53:23 levofloxa idalia 250 mg tablet 2024 025 [facility], [address] [place] [address], [id number], 12/11/2024 05:01:53 Patient TargetsNo targets recorded. Patient Instructions Encounter Date Encounter Id Patient Instructions Last Modified By Organization Details Last Modified Time 02/11/2025 [id number] high blood pressure: care instructions Not available [...] Not available 02/11/2025 13:43:25 Reason for Referral Neurologist Referral for Syn cope and collapse possible seizures Referring Physician: Dylan Lebron, Family Medicine, Encounter Date: 11/29/2024 Results Created Date Observation Date Name Description Value Unit Range Abnormal Flag Note LastModifiedBy Organization Detail LastModifiedTime 11/20/19 25 11/19/2024 gluco se, finge rstic k, blood Blood Glucose: mg/dl 118 Not Available [address], [address], 11/19/2024 15:35:59 11/20/19 25 11/19/2024 gluco se, finge rstic k, blood Reference Range (60-100) abnorm al Not Available [address], [address], 11/19/2024 15:35:59 11/20/19 25 11/19/2024 gluco se, finge rstic k, blood Blood Glucose: mg/dl 150 Not Available [address], [address], 11/19/2024 15:35:37 11/20/19 25 11/19/2024 gluco se, finge rstic k, blood Reference Range (60-100) abnorm al Not Available [address], [address], 11/19/2024 15:35:37 11/30/19 25 11/30/2024 TSH+F REE T4 TSH 1.330 uIU/m L 0.450- 4.500 normal Not Available [facility] ([facility]) [address] [place], [address], 12/03/2024 17:07:28 11/30/19 25 11/30/2024 TSH+F REE T4 T4,free(dire ct) 1.27 NG/dL 0.82-1 .77 normal Not Available [facility] ([facility]) [address] [facility], [place], [address], 12/03/2024 17:07:28 11/30/19 25 11/30/2024 CBC WITH DIFFE RENTI AL/PL ATELE T WBC 10.8 x10e3 /uL 3.4-10 .8 normal Not Available [facility] ([facility]) [address] [facility], [place], [address], 12/03/2024 17:07:28 11/30/19 25 11/30/2024 CBC WITH DIFFE RENTI AL/PL ATELE T RBC 4.65 x10e6 /uL 3.77-5 .28 normal Not Available [facility] ([facility]) [address] [place], [address], 12/03/2024 17:07:28 11/30/19 25 11/30/2024 CBC WITH DIFFE RENTI AL/PL ATELE T hemoglobin 13.7 g/dL 11.1-1 5.9 normal Not Available [facility] ([facility]) [address] [place], [address], 12/03/2024 17:07:28 11/30/19 25 11/30/2024 CBC WITH DIFFE RENTI AL/PL ATELE T hematocrit 43.0 % 34.0-4 6.6 normal Not Available [facility] ([facility]) [address] [place], [address], 12/03/2024 17:07:28 11/30/19 25 11/30/2024 CBC WITH DIFFE RENTI AL/PL ATELE T MCV 93 fL 79-97 normal Not Available [facility] ([facility]) [address] [place], [address], 12/03/2024 17:07:28 11/30/19 25 11/30/2024 CBC WITH DIFFE RENTI AL/PL ATELE T MCH 29.5 pg 26.6-3 3.0 normal Not Available [facility] ([facility]) [address] [place], [address], 12/03/2024 17:07:28 11/30/19 25 11/30/2024 CBC WITH DIFFE RENTI AL/PL ATELE T MCHC 31.9 g/dL 31.5-3 5.7 normal Not Available [facility] ([facility]) [address] [place], [address], 12/03/2024 17:07:28 11/30/19 25 11/30/2024 CBC WITH DIFFE RENTI AL/PL ATELE T RDW 16.6 % 11.7-1 5.4 above high normal Not Available [facility] ([facility]) [address] [facility], [place], [address], 12/03/2024 17:07:28 11/30/19 25 11/30/2024 CBC WITH DIFFE RENTI AL/PL ATELE T platelets 259 x10e3 /uL 150-45 0 normal Not Available [facility] ([facility]) [address] [place], [address], 12/03/2024 17:07:28 11/30/19 25 11/30/2024 CBC WITH DIFFE RENTI AL/PL ATELE T neutrophils 56 % not estab. normal Not Available [facility] ([facility]) [address] [place], [address], 12/03/2024 17:07:28 11/30/19 25 11/30/2024 CBC WITH DIFFE RENTI AL/PL ATELE T lymphs 32 % not estab. normal Not Available [facility] ([facility]) [address] [place], [address], 12/03/2024 17:07:28 11/30/19 25 11/30/2024 CBC WITH DIFFE RENTI AL/PL ATELE T monocytes 7 % not estab. normal Not Available [facility] ([facility]) [address] [place], [address], 12/03/2024 17:07:28 11/30/19 25 11/30/2024 CBC WITH DIFFE RENTI AL/PL ATELE T eos 3 % not estab. normal Not Available [facility] ([facility]) [address] [place], [address], 12/03/2024 17:07:28 11/30/19 25 11/30/2024 CBC WITH DIFFE RENTI AL/PL ATELE T basos 1 % not estab. normal Not Available [facility] ([facility]) [address] [place], [address], 12/03/2024 17:07:28 11/30/19 25 11/30/2024 CBC WITH DIFFE RENTI AL/PL ATELE T immature cells GUEST HISTORY CLERK Not Available [facility]) [address] [place], [address], 12/03/2024 17:07:28 11/30/19 25 11/30/2024 CBC WITH DIFFE RENTI AL/PL ATELE T neutrophils (absolute) 6.1 x10e3 /uL 1.4-7. 0 normal Not Available [facility] ([facility]) [address] [place], [address], 12/03/2024 17:07:28 11/30/19 25 11/30/2024 CBC WITH DIFFE RENTI AL/PL ATELE T lymphs (absolute) 3.4 x10e3 /uL 0.7-3. 1 above high normal Not Available [facility] ([facility]) [address] [place], [address], 12/03/2024 17:07:28 11/30/19 25 11/30/2024 CBC WITH DIFFE RENTI AL/PL ATELE T monocytes(ab solute) 0.8 x10e3 /uL 0.1-0. 9 normal Not Available [facility] ([facility]) [address] [place], [address], 12/03/2024 17:07:28 11/30/19 25 11/30/2024 CBC WITH DIFFE RENTI AL/PL ATELE T eos (absolute) 0.3 x10e3 /uL 0.0-0. 4 normal Not Available [facility] ([facility]) [address] [facility], [place], [address], 12/03/2024 17:07:28 11/30/19 25 11/30/2024 CBC WITH DIFFE RENTI AL/PL ATELE T baso (absolute) 0.1 x10e3 /uL 0.0-0. 2 normal Not Available [facility] ([facility]) [address] [facility], [place], [address], 12/03/2024 17:07:28 11/30/19 25 11/30/2024 CBC WITH DIFFE RENTI AL/PL ATELE T immature granulocytes 1 % not estab. Not Available [facility] ([facility]) [address] [facility], [place], [address], 12/03/2024 17:07:28 11/30/19 25 11/30/2024 CBC WITH DIFFE RENTI AL/PL ATELE T immature grans (abs) 0.1 x10e3 /uL 0.0-0. 1 Not Available [facility] ([facility]) [address] [facility], [place], [address], 12/03/2024 17:07:28 11/30/19 25 11/30/2024 CBC WITH DIFFE RENTI AL/PL ATELE T NRBC GUEST HISTORY CLERK Not Available [facility] ([facility]) [address] [facility], [place], [address], 12/03/2024 17:07:28 11/30/19 25 11/30/2024 CBC WITH DIFFE RENTI AL/PL ATELE T hematology comments: GUEST HISTORY CLERK Not Available [facility]) [address] [facility], [place], [address], 12/03/2024 17:07:28 11/30/19 25 11/30/2024 COMP. METAB OLIC PANEL (14) glucose 120 mg/dL 70-99 above high normal Not Available [facility] ([facility]) [address] [place], [address], 12/03/2024 17:07:29 11/30/19 25 11/30/2024 COMP. METAB OLIC PANEL (14) BUN 42 mg/dL 8-27 above high normal Not Available [facility] ([facility]) [address] [place], [address], 12/03/2024 17:07:29 11/30/19 25 11/30/2024 COMP. METAB OLIC PANEL (14) creatinine 1.85 mg/dL 0.57-1 .00 above high normal Not Available [facility] ([facility]) [address] [place], [address], 12/03/2024 17:07:29 11/30/19 25 11/30/2024 COMP. METAB OLIC PANEL (14) eGFR 28 mL/mi n/1.7 3 >59 below low normal Not Available [facility] ([facility]) [address] [place], [address], 12/03/2024 17:07:29 11/30/19 25 11/30/2024 COMP. METAB OLIC PANEL (14) BUN/creatini ne ratio 23 12-28 normal Not Available [facility] ([facility]) [address] [place], [address], 12/03/2024 17:07:29 11/30/19 25 11/30/2024 COMP. METAB OLIC PANEL (14) sodium 138 mmol/ L 134-14 4 normal Not Available [facility] ([facility]) [address] [place], [address], 12/03/2024 17:07:29 11/30/19 25 11/30/2024 COMP. METAB OLIC PANEL (14) potassium 4.5 mmol/ L 3.5-5. 2 normal Not Available [facility] ([facility]) [address] [place], [address], 12/03/2024 17:07:29 11/30/19 25 11/30/2024 COMP. METAB OLIC PANEL (14) chloride 100 mmol/ L 96-106 normal Not Available [facility] ([facility]) [address] [place], [address], 12/03/2024 17:07:29 11/30/19 25 11/30/2024 COMP. METAB OLIC PANEL (14) carbon dioxide, total 23 mmol/ L 20-29 normal Not Available [facility] ([facility]) [address] [place], [address], 12/03/2024 17:07:29 11/30/19 25 11/30/2024 COMP. METAB OLIC PANEL (14) calcium 9.0 mg/dL 8.7-10 .3 normal Not Available [facility] ([facility]) [address] [place], [address], 12/03/2024 17:07:29 11/30/19 25 11/30/2024 COMP. METAB OLIC PANEL (14) protein, total 6.5 g/dL 6.0-8. 5 normal Not Available [facility] ([facility]) [address] [place], [address], 12/03/2024 17:07:29 11/30/19 25 11/30/2024 COMP. METAB OLIC PANEL (14) albumin 4.0 g/dL 3.8-4. 8 normal Not Available [facility] ([facility]) [address] [place], [address], 12/03/2024 17:07:29 11/30/19 25 11/30/2024 COMP. METAB OLIC PANEL (14) globulin, total 2.5 g/dL 1.5-4. 5 Not Available [facility] ([facility]) [address] [place], [address], 12/03/2024 17:07:29 11/30/19 25 11/30/2024 COMP. METAB OLIC PANEL (14) bilirubin, total 0.2 mg/dL 0.0-1. 2 normal Not Available [facility] ([facility]) [address] [place], [address], 12/03/2024 17:07:29 11/30/19 25 11/30/2024 COMP. METAB OLIC PANEL (14) alkaline phosphatase 96 IU/L 44-121 normal Not Available [facility] [address] [place], [address], 12/03/2024 17:07:29 11/30/19 25 11/30/2024 COMP. METAB OLIC PANEL (14) AST (SGOT) 19 IU/L 0-40 normal Not Available [facility] ([facility]) [address] [place], [address], 12/03/2024 17:07:29 11/30/19 25 11/30/2024 COMP. METAB OLIC PANEL (14) ALT (SGPT) 18 IU/L 0-32 normal Not Available [facility] ([facility]) [address] [place], [address], 12/03/2024 17:07:29 11/30/19 25 11/30/2024 LIPID PANEL cholesterol, total 152 mg/dL 100-19 9 normal Not Available [facility] ([facility]) [address] [place], [address], 12/03/2024 17:07:29 11/30/19 25 11/30/2024 LIPID PANEL triglyceride s 348 mg/dL 0-149 above high normal Not Available [facility] ([facility]) [address] [place], [address], 12/03/2024 17:07:29 11/30/19 25 11/30/2024 LIPID PANEL HDL cholesterol 32 mg/dL >39 below low normal Not Available [facility] ([facility]) [address] [place], [address], 12/03/2024 17:07:29 11/30/19 25 11/30/2024 LIPID PANEL VLDL cholesterol sundar 55 mg/dL 5-40 above high normal Not Available [facility] ([facility]) [address] [place], [address], 12/03/2024 17:07:29 11/30/19 25 11/30/2024 LIPID PANEL LDL chol calc ([facility]) 65 mg/dL 0-99 Not Available [facility] [address] [place], [address], 12/03/2024 17:07:29 11/30/19 25 11/30/2024 LIPID PANEL LDL calc comment: GUEST HISTORY CLERK Not Available [facility]) [address] [facility], [place], [address], 12/03/2024 17:07:29 11/30/19 25 11/30/2024 C-PEP TIDE, SERUM C-peptide, serum 2.7 NG/mL 1.1-4. 4 C-Pep tide refer ence inter feliz is for fasti ng patie nts. Not Available [facility] ([facility]) [address] [place], [address], 12/03/2024 17:07:30 11/30/19 25 11/30/2024 HEMOG LOBIN A1C hemoglobin A1C 8.9 % 4.8-5. 6 above high normal Predi abete s: 5.7 - 6.4 Diabe murali: >6.4 Glyce berta contr ol for adult s with diabe murali: <7.0 Not Available [facility] ([facility]) [address] [place], [address], 12/03/2024 17:07:31 11/30/19 25 11/30/2024 SEDIM ENTAT ION RATE- WESTE RGREN sedimentatio n rate-westerg stevenson 61 mm/HR 0-40 above high normal Not Available [facility] ([facility]) [address] [place], [address], 12/03/2024 17:07:31 11/30/19 25 11/30/2024 MAGNE SIUM magnesium 1.6 mg/dL 1.6-2. 3 normal Not Available [facility] ([facility]) [address] [place], [address], 12/03/2024 17:07:31 11/30/19 25 12/03/2024 URINE CULTU RE, ROUTI NE urine culture, routine Final report abnormal Not Available [facility] ([facility]) [address] [facility], [place], [address], 12/03/2024 17:07:32 11/30/19 25 12/03/2024 URINE CULTU RE, ROUTI NE result 1 COMMEN T abnormal Esche sherry a fergu sonii Multi -Drug Resis tant Organ ism Great er than 100,0 00 colon y formi ng units per mL Not Available [facility] ([facility]) [address] [place], [address], 12/03/2024 17:07:32 11/30/19 25 12/03/2024 URINE CULTU [...] Tetra cycli ne R Not Available [facility] ([facility]) [address] [facility], [place], [address], 12/03/2024 17:07:32 11/30/19 25 11/30/2024 C-TRAVIS CTIVE PROTE IN, QUANT C-reactive protein, quant 3 mg/L 0-10 normal Not Available [facility] ([facility]) [address] [facility], [place], [address], 12/03/2024 17:07:33 11/30/19 25 11/29/2024 urina lysis , dipst ick Color Dark Yellow Not Available [address], [address], 11/29/2024 13:29:00 11/30/19 25 11/29/2024 urina lysis , dipst ick Appearance Clear Not Available [address], [address], 11/29/2024 13:29:00 11/30/19 25 11/29/2024 urina lysis , dipst ick Glucose Negati ve Not Available [address], [address], 11/29/2024 13:29:00 11/30/19 25 11/29/2024 urina lysis , dipst ick Bilirubin Negati ve Not Available [address], [address], 11/29/2024 13:29:00 11/30/19 25 11/29/2024 urina lysis , dipst ick Ketone Negati ve Not Available [address], [address], 11/29/2024 13:29:00 11/30/19 25 11/29/2024 urina lysis , dipst ick Specific [place] 1.030 Not Available [address], [address], 11/29/2024 13:29:00 11/30/19 25 11/29/2024 urina lysis , dipst ick Blood Negati ve Not Available [address], [address], 11/29/2024 13:29:00 11/30/19 25 11/29/2024 urina lysis , dipst ick pH 5.5 Not Available [address], [address], 11/29/2024 13:29:00 11/30/19 25 11/29/2024 urina lysis , dipst ick Protein 300 Not Available [address], [address], 11/29/2024 13:29:00 11/30/19 25 11/29/2024 urina lysis , dipst ick Urobilinogen .2 Not Available [facility] [address], [address], 11/29/2024 13:29:00 11/30/19 25 11/29/2024 urina lysis , dipst ick Nitrite positi ve Not Available [address], [address], 11/29/2024 13:29:00 11/30/19 25 11/29/2024 urina lysis , dipst ick Leukocytes Trace Not Available [address], [address], 11/29/2024 13:29:00 12/10/19 25 12/10/2024 CBC WITH DIFFE RENTI AL/PL ATELE T WBC 12.4 x10e3 /uL 3.4-10 .8 above high normal Not Available [facility] ([facility]) [address] [place], [address], 12/10/2024 04:06:40 12/10/19 25 12/10/2024 CBC WITH DIFFE RENTI AL/PL ATELE T RBC 5.07 x10e6 /uL 3.77-5 .28 normal Not Available [facility] ([facility]) [address] [place], [address], 12/10/2024 04:06:40 12/10/1912/10/2024 CBC WITH DIFFE RENTI AL/PL ATELE T hemoglobin 14.9 g/dL 11.1-1 5.9 normal Not Available [facility] ([facility]) [address] [place], [address], 12/10/2024 04:06:40 12/10/1912/10/2024 CBC WITH DIFFE RENTI AL/PL ATELE T hematocrit 46.5 % 34.0-4 6.6 normal Not Available [facility] ([facility]) [address] [place], [address], 12/10/2024 04:06:40 12/10/1912/10/2024 CBC WITH DIFFE RENTI AL/PL ATELE T MCV 92 fL 79-97 normal Not Available [facility] ([facility]) [address] [place], [address], 12/10/2024 04:06:40 12/10/19 25 12/10/2024 CBC WITH DIFFE RENTI AL/PL ATELE T MCH 29.4 pg 26.6-3 3.0 normal Not Available [facility] ([facility]) [address] [place], [address], 12/10/2024 04:06:40 12/10/19 25 12/10/2024 CBC WITH DIFFE RENTI AL/PL ATELE T MCHC 32.0 g/dL 31.5-3 5.7 normal Not Available [facility] ([facility]) [address] [facility], [place], [address], 12/10/2024 04:06:40 12/10/19 25 12/10/2024 CBC WITH DIFFE RENTI AL/PL ATELE T RDW 16.4 % 11.7-1 5.4 above high normal Not Available [facility] ([facility]) [address] [facility], [place], [address], 12/10/2024 04:06:40 12/10/19 25 12/10/2024 CBC WITH DIFFE RENTI AL/PL ATELE T platelets 249 x10e3 /uL 150-45 0 normal Not Available [facility] ([facility]) [address] [facility], [place], [address], 12/10/2024 04:06:40 12/10/19 25 12/10/2024 CBC WITH DIFFE RENTI AL/PL ATELE T neutrophils 68 % not estab. normal Not Available [facility] ([facility]) [address] [facility], [place], [address], 12/10/2024 04:06:40 12/10/19 25 12/10/2024 CBC WITH DIFFE RENTI AL/PL ATELE T lymphs 22 % not estab. normal Not Available [facility] ([facility]) [address] [facility], [place], [address], 12/10/2024 04:06:40 12/10/19 25 12/10/2024 CBC WITH DIFFE RENTI AL/PL ATELE T monocytes 6 % not estab. normal Not Available [facility] ([facility]) [address] [facility], [place], [address], 12/10/2024 04:06:40 12/10/19 25 12/10/2024 CBC WITH DIFFE RENTI AL/PL ATELE T eos 3 % not estab. normal Not Available [facility] ([facility]) [address] [facility], [place], [address], 12/10/2024 04:06:40 12/10/19 25 12/10/2024 CBC WITH DIFFE RENTI AL/PL ATELE T basos 0 % not estab. normal Not Available [facility] ([facility]) [address] [facility], [place], [address], 12/10/2024 04:06:40 12/10/19 25 12/10/2024 CBC WITH DIFFE RENTI AL/PL ATELE T immature cells GUEST HISTORY CLERK Not Available [facility]) [address] [facility], [place], [address], 12/10/2024 04:06:40 12/10/19 25 12/10/2024 CBC WITH DIFFE RENTI AL/PL ATELE T neutrophils (absolute) 8.5 x10e3 /uL 1.4-7. 0 above high normal Not Available [facility] ([facility]) [address] [place], [address], 12/10/2024 04:06:40 12/10/19 25 12/10/2024 CBC WITH DIFFE RENTI AL/PL ATELE T lymphs (absolute) 2.8 x10e3 /uL 0.7-3. 1 normal Not Available [facility] ([facility]) [address] [place], [address], 12/10/2024 04:06:40 12/10/19 25 12/10/2024 CBC WITH DIFFE RENTI AL/PL ATELE T monocytes(ab solute) 0.7 x10e3 /uL 0.1-0. 9 normal Not Available [facility] ([facility]) [address] [place], [address], 12/10/2024 04:06:40 12/10/19 25 12/10/2024 CBC WITH DIFFE RENTI AL/PL ATELE T eos (absolute) 0.3 x10e3 /uL 0.0-0. 4 normal Not Available [facility] ([facility]) [address] [facility], [place], [address], 12/10/2024 04:06:40 12/10/19 25 12/10/2024 CBC WITH DIFFE RENTI AL/PL ATELE T baso (absolute) 0.1 x10e3 /uL 0.0-0. 2 normal Not Available [facility] ([facility]) [address] [facility], [place], [address], 12/10/2024 04:06:40 12/10/19 25 12/10/2024 CBC WITH DIFFE RENTI AL/PL ATELE T immature granulocytes 1 % not estab. Not Available [facility] ([facility]) [address] [place], [address], 12/10/2024 04:06:40 12/10/19 25 12/10/2024 CBC WITH DIFFE RENTI AL/PL ATELE T immature grans (abs) 0.1 x10e3 /uL 0.0-0. 1 Not Available [facility] ([facility]) [address] [place], [address], 12/10/2024 04:06:40 12/10/19 25 12/10/2024 CBC WITH DIFFE RENTI AL/PL ATELE T NRBC GUEST HISTORY CLERK Not Available [facility] ([facility]) [address] [place], [address], 12/10/2024 04:06:40 12/10/19 25 12/10/2024 CBC WITH DIFFE RENTI AL/PL ATELE T hematology comments: GUEST HISTORY CLERK Not Available [facility]) [address] [place], [address], 12/10/2024 04:06:40 12/10/19 25 12/10/2024 COMP. METAB OLIC PANEL (14) glucose 254 mg/dL 70-99 above high normal Not Available [facility] ([facility]) [address] [place], [address], 12/10/2024 04:06:40 12/10/19 25 12/10/2024 COMP. METAB OLIC PANEL (14) BUN 61 mg/dL 8-27 above high normal Not Available [facility] ([facility]) [address] [place], [address], 12/10/2024 04:06:40 12/10/19 25 12/10/2024 COMP. METAB OLIC PANEL (14) creatinine 2.30 mg/dL 0.57-1 .00 above high normal Not Available [facility] ([facility]) [address] [place], [address], 12/10/2024 04:06:40 12/10/19 25 12/10/2024 COMP. METAB OLIC PANEL (14) eGFR 22 mL/mi n/1.7 3 >59 below low normal Not Available [facility] ([facility]) [address] [place], [address], 12/10/2024 04:06:40 12/10/19 25 12/10/2024 COMP. METAB OLIC PANEL (14) BUN/creatini ne ratio 27 12-28 normal Not Available [facility] ([facility]) [address] [place], [address], 12/10/2024 04:06:40 12/10/19 25 12/10/2024 COMP. METAB OLIC PANEL (14) sodium 133 mmol/ L 134-14 4 below low normal Not Available [facility] ([facility]) [address] [place], [address], 12/10/2024 04:06:40 12/10/19 25 12/10/2024 COMP. METAB OLIC PANEL (14) potassium 4.8 mmol/ L 3.5-5. 2 normal Not Available [facility] ([facility]) [address] [place], [address], 12/10/2024 04:06:40 12/10/19 25 12/10/2024 COMP. METAB OLIC PANEL (14) chloride 96 mmol/ L 96-106 normal Not Available [facility] ([facility]) [address] [place], [address], 12/10/2024 04:06:40 12/10/19 25 12/10/2024 COMP. METAB OLIC PANEL (14) carbon dioxide, total 21 mmol/ L 20-29 normal Not Available [facility] ([facility]) [address] [place], [address], 12/10/2024 04:06:40 12/10/19 25 12/10/2024 COMP. METAB OLIC PANEL (14) calcium 8.7 mg/dL 8.7-10 .3 normal Not Available [facility] ([facility]) [address] [place], [address], 12/10/2024 04:06:40 12/10/19 25 12/10/2024 COMP. METAB OLIC PANEL (14) protein, total 6.6 g/dL 6.0-8. 5 normal Not Available [facility] ([facility]) [address] [place], [address], 12/10/2024 04:06:40 12/10/19 25 12/10/2024 COMP. METAB OLIC PANEL (14) albumin 4.0 g/dL 3.8-4. 8 normal Not Available [facility] ([facility]) [address] [place], [address], 12/10/2024 04:06:40 12/10/19 25 12/10/2024 COMP. METAB OLIC PANEL (14) globulin, total 2.6 g/dL 1.5-4. 5 Not Available [facility] ([facility]) [address] [facility], [place], [address], 12/10/2024 04:06:40 12/10/19 25 12/10/2024 COMP. METAB OLIC PANEL (14) bilirubin, total 0.3 mg/dL 0.0-1. 2 normal Not Available [facility] ([facility]) [address] [place], [address], 12/10/2024 04:06:40 12/10/19 25 12/10/2024 COMP. METAB OLIC PANEL (14) alkaline phosphatase 91 IU/L 44-121 normal Not Available [facility] ([facility]) [address] [place], [address], 12/10/2024 04:06:40 12/10/19 25 12/10/2024 COMP. METAB OLIC PANEL (14) AST (SGOT) 15 IU/L 0-40 normal Not Available [facility] ([facility]) [address] [facility], [place], [address], 12/10/2024 04:06:40 12/10/19 25 12/10/2024 COMP. METAB OLIC PANEL (14) ALT (SGPT) 20 IU/L 0-32 normal Not Available [facility] ([facility]) [address] [place], [address], 12/10/2024 04:06:40 02/12/20 25 02/11/2025 urina lysis , dipst ick Leukocytes Negati ve Not Available [facility] [address] [place], [address], 02/04/2025 09:05:09 02/12/20 25 02/11/2025 urina lysis , dipst ick Nitrite negati ve Not Available [facility] [address] [place], [address], 02/04/2025 09:05:09 02/12/20 25 02/11/2025 urina lysis , dipst ick Urobilinogen .2 Not Available [facility] [address] [place], [address], 02/04/2025 09:05:09 02/12/20 25 02/11/2025 urina lysis , dipst ick Protein 100 Not Available [facility] [address] [place], [address], 02/04/2025 09:05:09 02/12/20 25 02/11/2025 urina lysis , dipst ick pH 6.0 Not Available [facility] [address] [place], [address], 02/04/2025 09:05:09 02/12/20 25 02/11/2025 urina lysis , dipst ick Blood Negati ve Not Available [facility] [address] [place], [address], 02/04/2025 09:05:09 02/12/20 25 02/11/2025 urina lysis , dipst ick Specific [place] 1.020 Not Available [facility] [address] [place], [address], 02/04/2025 09:05:09 02/12/20 25 02/11/2025 urina lysis , dipst ick Ketone Negati ve Not Available [facility] [address] [place], [address], 02/04/2025 09:05:09 02/12/20 25 02/11/2025 urina lysis , dipst ick Bilirubin Negati ve Not Available [facility] [address] [place], [address], 02/04/2025 09:05:09 02/12/20 25 02/11/2025 urina lysis , dipst ick Glucose Negati ve Not Available [facility] [address] [place], [address], 02/04/2025 09:05:09 02/12/20 25 02/11/2025 urina lysis , dipst ick Appearance Clear Not Available [facility] [address] [place], [address], 02/04/2025 09:05:09 02/12/20 25 02/11/2025 urina lysis , dipst ick Color Yellow Not Available [facility] [address] [place], [address], 02/04/2025 09:05:09 11/20/19 25 11/19/2024 elect rocar diogr am No observ ation record ed. [email or web address], [address], 11/19/2024 16:58:35 11/20/19 25 11/19/2024 elect rocar diogr am No observ ation record ed. [place] [id number], [place], [address], 11/22/2024 09:08:29 11/23/19 25 11/19/2024 elect rocar diogr am No observ ation record ed. [email or web address], [address], 11/23/2024 16:34:11 11/23/19 25 11/22/2024 XR, foot, 3 or more view No observ ation record ed. [facility] [address], [place], [address], 11/23/2024 18:15:43 11/30/19 25 11/19/2024 cardi ac monit or No observ ation record ed. [facility] [address], [place], [address], 11/30/2024 10:43:31 12/29/19 25 12/28/2024 ankle brach ial index No observ ation record ed. [facility] [address], [place], [address], 12/28/2024 13:56:53 02/01/20 25 01/28/2025 US, doppl er echoc ardio gram, w/ color flow No observ ation record ed. [facility] [address] [facility] [place], [address], 02/01/2025 08:13:35 02/09/2002/08/2025 XR, foot, 3 or more view No observ ation record ed. [facility] [address], [place], [address], 02/08/2025 15:41:42 02/23/20 25 01/28/2025 US, doppl er echoc ardio gram, w/ color flow No observ ation record ed. [facility] [address] [facility] [place], [address], 02/22/2025 16:21:35 03/01/2003/01/2025 CT, angio gram, head, w/ contr ast No observ ation record ed. [facility] [address], [place], [address], 03/01/2025 14:03:28 03/01/20 25 03/01/2025 CT, head + brain , w/o contr ast No observ ation record ed. [facility] [address], [place], [address], 03/01/2025 14:03:28 03/01/20 25 03/01/2025 XR, chest , 2 view No observ ation record ed. [facility] [address], [place], [address], 03/01/2025 14:24:36 03/01/20 25 03/01/2025 CT, angio gram, neck, w/ contr ast No observ ation record ed. [facility] [address], [place], [place], [address], 03/01/2025 14:24:16 03/02/20 25 02/04/2025 NM, myoca rdial perfu mychal scan, w/ stres s No observ ation record ed. [facility] [address] [facility] [place], [address], 03/04/2025 13:22:20 03/03/20 25 03/01/2025 elect mary anne negrete am No observ ation record ed. [facility] [address], [place], [address], 03/04/2025 13:22:20 Result Notes None recorded. Problems Name Problem SNOMED Code Status Onset Date Resolution Date Notes Provider Name and Address Organization Details Recorded Time Chronic kidney disease stage 3B [id number] Active Fina perales [place] - [facility] 5 11:42:05 Type 2 diabetes mellitus 03088019 Active 2021 Dylan Lebron, CLINICAL TECH [address], [place], [address] , [place] - [facility] 2 10:07:29 Hypertensive disorder 82479688 Active 2021 Dylan Lebron CLINICAL TECH [address], [place], [address] , [place] - [facility] 2 10:07:09 Hypercholeste rolemia 92048204 Active 2021 Dylan Lebron CLINICAL TECH [address], [place], [address] , [place] - [facility] 2 10:07:05 Gastroesophag eal reflux disease 281971748 Active 2021 Dylan Lebron, CLINICAL TECH [address], [place], [address] , [place] [facility] 2 10:06:49 Hypothyroidis m 89343947 Active 2021 Dylan Lebron, CLINICAL TECH [address], [place], [address] , [place] [facility] 2 10:07:12 Neuropathy 926010997 Active 2021 Dylan Lebron, CLINICAL TECH [address], [place], [address] , [place] [facility] 2 10:07:19 Arthritis 6806018 Active 2021 Dylan Lebron, CLINICAL TECH [address], [place], [address] , [place] [facility] 2 10:06:47 Coronary arteriosclero sis 12800424 Active 2021 Dylan Lebron, CLINICAL TECH [address], [place], [address] , [place] [facility] 2 10:18:21 Coronary artery bypass grafts x 3 Active 2021 Dylan Lebron, CLINICAL TECH [address], [place], [place], [address] , [place] - [facility] 2 10:18:34 Problem Notes None recorded. Procedures Surgical History Date Name Laterality Status Provider Name and Address Organization Details Recorded Time 025 Medication Reconcilliation completed Fina Vasquez [place] - [facility] 11/29/2024 13:05:51 025 Advance Care Planning completed Fina GUARDADO - [facility] 11/19/2024 10:41:02 025 IV Infusion completed Fina Vasquez [place] - [facility] 11/19/2024 15:44:19 025 Functional Status Assessed completed Fina GUARDADO - [facility] 11/19/2024 10:41:02 024 Date of Last Colonoscopy completed Dia Stears [place] - [facility] 2024 13:27:50 024 Medication Reconcilliation completed Fina Vasquez [place] - [facility] 12/02/2023 10:36:18 023 In and Out Catheterization completed Margarita Banks, CLINICAL TECH [address], [place], [address], [place] - [facility] 02/13/2023 14:34:26 023 Medication [...] Dia Stears [place] - [facility] 12/20/2021 15:34:17 01/01/2 003 Hysterectomy completed Dia Stears [place] - [...] Name and Address Organization Details Recorded Time 486973 lisinopri l medicatio n rash Not available high 12/17/2021 24701 RxNorm Fina Pedro null, [place] - [facility] 2 10:17:08 498396 Oxycontin medicatio n hallucina tions moderate high 12/17/2021 36885 6 RxNorm Fina Vasquez [place] - [facility] 2 10:18:04 595998 codeine medicatio n rash moderate high 12/17/2021 2670 RxNorm Fina Vasquez [place] - [facility] 2 10:16:43 510333 acetamino phen / oxycodone medicatio n hallucina tions severe high 12/17/2021 49289 3 RxNorm Fina Vasquez [place] - [facility] 2 10:17:43 306394 cephalexi n medicatio n eye swelling Not available low 11/11/2022 2231 RxNorm Fina Vasquez null, [place] - [facility] 3 12:54:33 948097 Macrobid medicatio n diarrhea moderate high 01/13/2023 64970 1 RxNorm vomit ing and diarr hea [...] Not Available Not Available Not Available [facility] 3 mL 08/22 completed Not Available Not [...] Organization Details Last Updated DateTime 151.13 cm 27.6 kg/m2 90089.3 4 g 98 [degF] 87 /min 95 % 95 % 18 /min 0 118/64 mm[Hg] Fina Vasquez [place] - [facility] 5 13:17:29 Date Recorded Body height Respiratory rate Oxygen saturation Oxygen saturation in Arterial blood by Pulse oximetry Systolic And Diastolic Provider Name and Address Organization Details Last Updated DateTime 5 151.13 cm 18 /min 95 % 95 % 180/95 mm[Hg] Fina Vasquez [place] - [facility] 5 11:25:30 Date Recorded Body height Body mass index (BMI) Body weight Heart rate Oxygen saturation Oxygen saturation in Arterial blood by Pulse oximetry Respiratory rate Pain severity - 0-10 verbal numeric rating [Score] - Reported Body temperature Systolic And Diastolic Provider Name and Address Organization Details Last Updated DateTime 5 151.13 cm 27.1 kg/m2 06355.6 6 g 100 /min 93 % 93 % 18 /min 0 98.1 [degF] 140/82 mm[Hg] Fina Vasquez [place] - [facility] 5 09:15:11 Date Recorded Body height Body mass index (BMI) Body weight Heart rate Oxygen saturation Oxygen saturation in Arterial blood by Pulse oximetry Respiratory rate Pain severity - 0-10 verbal numeric rating [Score] - Reported Systolic And Diastolic Provider Name and Address Organization Details Last Updated DateTime 5 151.13 cm 27 kg/m2 52537.5 6 g 95 /min 96 % 96 % 18 /min 0 138/84 mm[Hg] Xiomara Cai [place] - [facility] 5 13:15:06 Date Recorded Body height Body mass index (BMI) Body weight Body temperature Heart rate Oxygen saturation Oxygen saturation in Arterial blood by Pulse oximetry Respiratory rate Pain severity - 0-10 verbal numeric rating [Score] - Reported Systolic And Diastolic Provider Name and Address Organization Details Last Updated DateTime 5 151.13 cm 26.8 kg/m2 22036.9 7 g 97.6 [degF] 81 /min 95 % 95 % 18 /min 0 132/74 mm[Hg] Fina Vasquez [facility] 5 11:11:03 Social History Question Answer Notes LastModified by Organizat ion Details LastModified Time Tobacco Smoking Status Never Smoker Dia perales [place] - [facility] 12/17/2021 09:30:03 Do You Have [...] Or The Highest Degree You Have Received? [id number] Information not available 12/17/2021 Have There Been Any Changes To Your Family Or Social Situation? No Information no t available 07/14/2023 What Is The Fluoride Status Of Your Home? Unknown Information not available 07/14/2023 Have You Recently Or Are You Planning To Travel To An Area With Zika Virus? No Information not available 07/14/2023 Do You Have A Medical Power Of Automobile Parker? No Information not available 07/14/2023 What Was [...] Functional Status Question Answer Note LastModified by [employer] ion Details LastModified Time Do you use [...] anxious, or unable to sleep at night)? [id number] Information not available 12/20/2021 Do you have [...] Influenza, high-dose, quadrivalent, PF 02/21/2022 completed Dylan Lebron APRN [address], [place], [address], [place] [facility] 03/26/2022 17:30:58 Influenza, high-dose, quadrivalent, PF 04/25/2023 completed Fina Vasquez [place] - [facility] 04/25/2023 13:24:26 Influenza, high-dose, trivalent, PF 02/24/2024 completed Fina Vasquez [place] [facility] 03/11/2024 17:52:11 Influenza, high-dose, trivalent, PF 03/21/2025 completed Fina Vas[place] - [facility] 03/21/2025 13:00:39 COVID-19, mRNA, LNP-S, PF, 100 mcg/0.5mL dose or 50 mcg/0.25mL dose 08/02/2020 completed Fina Vasquez [place] - [facility] 08/22/2022 14:19:25 COVID-19, mRNA, LNP-S, [...] ICD10 Code Diagnosis IMO Codes Diagnosis Note [id number] Dylan Lebron APRN [address] [address] 12/17/2021 08:46:07 12/17/2021 10:35:13 Diabetes mellitus 34823261 E11.9 Overall, pt doing well at this [...] questions or concerns arise. Urinary incontinence 165 807313 R32 pt wants to wait on referral wants to try meds first. if gfr wnl will start mybretriq Hypercholesterolemia 136 07937 E78.00 Hypertensive disorder 38 429066 I10 Hypothyroidism 11515021 E03.9 Neuropathy 236095888 G62 .9 on gabapentin Coronary arteriosclerosis 73781506 I25.10 follow up with cardiology as scheduled [id number] Dylan Lebron [address] [address] 12/20/2021 14:52:20 12/20/2021 17:13:38 Type 2 diabetes mellitus 17295582 E11.21 Insulin pump present 450 333755 Z96.41 increased Education about insulin pump 9220387072 90420 Z46.81 current insulin pump settings:b maru rate 1.9 units/hr midnight to 8 am2.5 units/hr 8am to 12 pmtotal 58.2 units a daymax of 80 units a day adjustment s :basal rate 1.9 units/hr midnight to 8 am2.85 units/hr 8am to 12 pmtotal of 65.55 units in 24 hoursincre ase bolus to each meal and snack Acute urin nasra tract infection 429981526 N39.0 med sent [id number] Dylan Lebron [address] [address] 01/07/2022 13:15:54 01/07/2022 14:11:25 Acute urinary tract infection 940342208 N39.0 med sent Dizzy spells 107628389 R 42 [id number] Tonezion Lebron [address] [address] 01/15/2022 14:53:00 01/15/2022 15:42:34 Acute urinary tract infection 004404527 N39.0 med sent, discussed with pharm antibiotic s based on culture, will reculture and sent referral to urology Pain of ri t hip joint 1988102054 50778 M25.854 [id number] Tonejakenando Ramirescarito [address] [address] 01/24/2022 10:35:55 01/24/2022 11:11:42 Low back pain 984903192 M54.41 decadron 4mg given im, watch glucose close may need to adjust insulin dose for a few days [id number] Dylan Ramirescarito [address] [address] 01/28/2022 14:54:09 01/28/2022 16:38:47 Neuropathy 038626441 G62.9 on gabapentin Low back pain 768776046 M54.41 [id number] Dylan Ramirescarito [address] [address] 02/04/2022 10:17:23 02/04/2022 11:03:56 Low back pain 072949003 M54.41 Donald report obtained, reviewed, and made [...] 3 days or norco until mri resulted [id number] Tonezion carito [address] [address] 02/21/2022 09:51:52 02/21/2022 11:03:15 Low back pain 177346844 M54.41 Donald report obtained, reviewed, and made [...] as csa on file Influenza vaccine needed 7320912462 106 Z23 [id number] Dylan Lebron CLINICAL TECH [address] [address] 08/22/2022 13:52:04 08/22/2022 15:02:08 Neuropathy 761914242 G62.9 Pt compliant with plan of careKasper reviewed and appropriat emedicatio n compliance discussedC ontrol substance agreement on fileuds next visit- pt has pain and difficulty getting on and off toilet Type 2 lexx betes mellitus 75351960 E11.21 labs next visit Hypertensive disorder 38 171184 I10 labs next visit Hypercholesterolemia 136 91459 E78.00 [id number] Dylan Lebron [address] [address] 11/08/2022 13:31:16 11/08/2022 14:44:29 Acute urinary tract infection 941010668 N39.0 increase fluids Candidiasis of vagina 72 967621 B37.31 [id number] Dylan Lebron [address] [address] 11/19/2022 14:48:02 11/19/2022 15:38:27 Acute confusion 175692292 R41.0 sent to ed for eval- report to Yanelis Arzola RN Abnormal g ait due to muscle weakness 042558614 M62.81 Unsteady when walking 22 170854 R26.89 Abnormal vision 0728426 H54.7 Disorder o f eye movements 83314607 H55.89 [id number] Dylan Lebron APRN [place] [address] [address] 11/25/2022 14:33:30 11/25/2022 15:58:01 Headache 06355672 R51.9 discussed with [place] at dr do office and recommende d going back to ed for eval. pt sent to [facility] for eval report called to Marlin. Abnormal g ait due to muscle weakness 049143593 M62.81 [id number] Dylan Lebron [address] [address] 12/12/2022 10:35:13 12/12/2022 11:44:04 Hypercholesterolemia 91556017 E78.00 Hypertensive disorder 38 641343 I10 Hypothyroidism 69404375 E03.9 Type 2 lexx betes mellitus 27076587 E11.21 Long-term current use of drug therapy 680200139 Z79.899 Long-term current use of insulin 238701591 Z79.4 Insulin pump present 450 856044 Z96.41 Abnormal g ait due to impairment of balance 945752128 R26.89 Hyperkalemia 97824867 E8 7.5 Neuropathy 275210056 G62 .9 Pt compliant with plan of careKasper reviewed and appropriat emedicatio n compliance discussedC ontrol substance agreement on fileuds :12/12/22 [id number] Dylan Lebron APRN [address] [address] 01/06/2023 10:15:58 01/06/2023 11:25:08 Acute urinary tract infection 080350971 N39.0 increase fluids Candidiasis of skin 4988 3006 B37.2 Fatigue 23127104 R53.83 Cobalamin deficiency 190 682773 E53.8 [id number] Dylan Lebron CLINICAL TECH [address] [address] 01/13/2023 09:55:30 01/13/2023 10:48:55 Acute urinary tract infection 207841371 N39.0 increase fluidsspok e with dr grajeda [facility] treatment Low blood pressure 46012 003 I95.9 Abnormal g ait due to muscle weakness 320031401 M62.81 [id number] Dylan Lebron APRN [facility] [address] [place] [address] 01/31/2023 10:32:52 01/31/2023 11:32:09 Hypercholesterolemia 64143668 E78.00 History of urinary tract infection 5360749459 107 Z87.440 Muscle weakness 45490305 M62.81 Acute urin nasra tract infection 400018544 N39.0 increase fluidsurol ogy consultcx Hyperglyce sera due to type 2 diabetes mellitus 6718955375 85114 E11.65 Hypoglycemia 898711239 E 16.2 pt would benefit from omnipod 5 and dexcom 6- this could prevent hyper and hypoglycem ia episodes [id number] Margarita Banks [facility] [address] [place] [address] 02/04/2023 14:22:54 02/04/2023 15:54:28 Hypertensive disorder 88311594 I10 Type 2 lexx betes mellitus 21179180 E11.21 Coronary arteriosclerosis 48857936 I25.10 Chronic ki dney disease stage 4 581403597 N18.4 Recurrent urinary tract infection 125009575 N39.0 -continue estradiol VC. Hydronephrosis 77645248 N13.30 Patient ky dical record not available 876869049 Z76.89 Mixed urin nasra incontinence 711436311 N39.46 Acute urin nasra tract infection 440059228 N39.0 [id number] Margarita Banks [facility] [address] [place] [address] 02/13/2023 13:31:33 02/13/2023 14:44:51 Recurrent urinary tract infection 209603895 N39.0 -continue estradiol VC. Hydronephrosis 88244208 N13.30 Chronic ki dney disease stage 4 843335112 N18.4 Hypertensive disorder 38 893580 I10 Type 2 lexx betes mellitus 64836996 E11.21 Coronary arteriosclerosis 52036878 I25.10 Mixed urin nasra incontinence 981550482 N39.46 [id number] Margarita Banks [facility] [address] [place] [address] 03/06/2023 14:23:11 03/06/2023 15:44:51 Recurrent urinary tract infection N39.0 -continue estradiol VC. Hydronephrosis 46587600 N13.30 Chronic ki dney disease stage 4 594740245 N18.4 Hypertensive disorder 38 244203 I10 Type 2 lexx betes mellitus 81126479 E11.21 Coronary arteriosclerosis 66825677 I25.10 Mixed urin nasra incontinence 984298846 N39.46 Acute urin nasra tract infection 260104358 N39.0 [id number] [facility] [address] [place] [address] 03/25/2023 13:36:38 03/25/2023 14:21:18 Recurrent urinary tract infection 529987938 N39.0 -continue estradiol VC. Hydronephrosis 87782320 N13.30 Chronic ki dney disease stage 4 085789709 N18.4 Hypertensive disorder 38 627169 I10 Type 2 lexx betes mellitus 22770454 E11.21 Coronary arteriosclerosis 11698419 I25.10 Mixed urin nasra incontinence 797903455 N39.46 Overactive urinary bladder 193488814 N32.81 -avoid anticholin ergics in this patient d/t potential patient harm. anticholin ergics interact with currently rx medication s and combo may incr. risk of DENTAL TECHNOLOGY ADVISOR depression , psychomoto r impairment . Also pt is 72 years old, and anticholin ergics should be avoided d/t BEERS criteria.B eta 3 agonists are the safest alternativ e for this patient. [id number] [facility] [address] [place] [address] 05/06/2023 13:48:23 05/06/2023 14:45:17 Recurrent urinary tract infection 909917157 N39.0 -continue estradiol VC. Hydronephrosis 53289637 N13.30 Chronic ki dney disease stage 4 579178716 N18.4 Hypertensive disorder 38 599881 I10 Type 2 lexx betes mellitus 81698660 E11.21 Coronary arteriosclerosis 15083084 I25.10 Mixed urin nasra incontinence 062246044 N39.46 Overactive urinary bladder 996046583 N32.81 -avoid anticholin ergics in this patient d/t potential patient harm. anticholin ergics interact with currently rx medication s and combo may incr. risk of DENTAL TECHNOLOGY ADVISOR depression , psychomoto r impairment . Also pt is 72 years old, and anticholin ergics should be avoided d/t BEERS criteria.B eta 3 agonists are the safest alternativ e for this patient. -PFPT- unable to travel. she does not have a PFPT provider within a [address] from her home.-fail ed bladder training. Acute urin nasra tract infection 016235903 N39.0 [id number] Dylan Lebrno APRN [address] [address] 04/03/2023 10:54:18 04/03/2023 12:24:14 Neuropathy 610195400 G62.9 Pt compliant with plan of careKaer reviewed and appropriat emedicatio n compliance discussedC ontrol substance agreement on file Long-term drug therapy 216231336 Z79.899 Coronary arteriosclerosis 72116188 I25.10 follow up with cardiology as scheduled Hypercholesterolemia 136 99416 E78.00 Hypertensive disorder 38 358485 I10 Hypothyroidism 20455935 E03.9 Type 2 lexx betes mellitus 15274857 E11.21 due to hypoglycem ia and her having to treat lows she would benefit from the dexcom g6 and omnipod 5 to mange her lows better. pt is scared of hypoglycem ia so at 100 she is treating low with glucose tablets. pt has been hospitaliz ed due to lows. Hypoglycemia 520055603 E 16.2 pt would benefit from omnipod 5 and dexcom 6- this could prevent hyper and hypoglycem ia episodes [id number] Dylan Lebron APRN [address] [address] 04/25/2023 08:48:34 04/25/2023 10:09:13 Influenza vaccine needed 6351136760 106 Z23 Arthritis 2700018 M19.90 Coronary arteriosclerosis 96068432 I25.10 follow up with cardiology as scheduled Gastroesop hageal reflux disease 412474087 K21.9 Hypercholesterolemia 136 20101 E78.00 Hypertensive disorder 38 080822 I10 Hypothyroidism 15799701 E03.9 Neuropathy 785495956 G62 .9 Pt compliant with plan of careDonald reviewed and appropriat emedicatio n compliance discussedC ontrol substance agreement on file Type 2 lexx betradha mellitus 35592993 E11.21 due to hypoglycem ia and her having to treat lows she would benefit from the dexcom g6 and omnipod 5 to mange her lows better. pt is scared of hypoglycem ia so at 100 she is treating low with glucose tablets. pt has been hospitaliz ed due to lows. Acute urin nasra tract infection 543953764 N39.0 increase fluidsurol ogy consultcx [id number] Margarita Banks APRN [facility] [address] [place] [address] 06/05/2023 10:06:54 06/05/2023 11:17:33 Recurrent urinary tract infection 713968710 N39.0 -continue estradiol VC. Hydronephrosis 55945845 N13.30 Chronic ki dney disease stage 4 823417541 N18.4 Hypertensive disorder 38 680224 I10 Type 2 lexx betes mellitus 56629665 E11.21 Coronary arteriosclerosis 82025409 I25.10 Mixed urin nasra incontinence 436617344 N39.46 Overactive urinary bladder 098520729 N32.81 -avoid anticholin ergics in this patient d/t potential patient harm. anticholin ergics interact with currently rx medication s and combo may incr. risk of DENTAL TECHNOLOGY ADVISOR depression , psychomoto r impairment . Also pt is 72 years old, and anticholin ergics should be avoided d/t BEERS criteria.B eta 3 agonists are the safest alternativ e for this patient. -PFPT- unable to travel. she does not have a PFPT provider within a [address] from her home.-fail ed bladder training. Candidiasis of vagina 72 744640 B37.31 reported per pt with abx tx. [id number] Dylan Lebron APRN [address] [address] 05/23/2023 13:24:23 05/23/2023 14:10:28 History of urinary tract infection 3347068950 107 Z87.440 Increased frequency of urination 020005465 R35.0 Acute back pain with sciatica 648179685 M54.41 monitor glucose close [id number] Margarita Banks APRN [facility] [address] [place] [address] 07/10/2023 11:09:05 07/10/2023 11:36:55 Recurrent urinary tract infection 231575116 N39.0 -continue estradiol VC. Hydronephrosis 14231785 N13.30 Chronic ki dney disease stage 4 139134271 N18.4 Hypertensive disorder 38 939866 I10 Type 2 lexx betes mellitus 79907217 E11.21 Coronary arteriosclerosis 03642791 I25.10 Mixed urin nasra incontinence 435507023 N39.46 Overactive urinary bladder 712429804 N32.81 -avoid anticholin ergics in this patient d/t potential patient harm. anticholin ergics interact with currently rx medication s and combo may incr. risk of DENTAL TECHNOLOGY ADVISOR depression , psychomoto r impairment . Also pt is 72 years old, and anticholin ergics should be avoided d/t BEERS criteria.B eta 3 agonists are the safest alternativ e for this patient. -PFPT- unable to travel. she does not have a PFPT provider within a [address] from her home.-fail ed bladder training. [id number] Dylan Lebron APRN [address] [address] 07/01/2023 14:51:59 07/01/2023 16:21:06 Arthritis 4839691 M19.90 Neuropathy 120920519 G62 .9 Pt compliant with plan of careDonald reviewed and appropriat emedicatio n compliance discussedC ontrol substance agreement on fileuds: History of urinary tract infection 8297743886 107 Z87.440 Pain of ri ght hip joint 2001434271 11949 M25.551 steroids if no improvemen t will order xrays Pain of ri ght ankle joint 3064832184 1277489 M25.571 Chronic ki dney disease 023580400 N18.9 Middle ear effusion 1004 815365 H74.8X9 steroidsmo nitor glucose close [id number] [facility] [address] [place] [address] 08/20/2023 09:32:55 08/20/2023 10:07:07 Recurrent urinary tract infection N39.0 -continue estradiol VC. Hydronephrosis 21396145 N13.30 Chronic ki dney disease stage 4 785149882 N18.4 Hypertensive disorder 38 590296 I10 Type 2 lexx betes mellitus 20850621 E11.21 Coronary arteriosclerosis 52701141 I25.10 Mixed urin nasra incontinence 995801286 N39.46 Overactive urinary bladder 031432524 N32.81 -avoid anticholin ergics in this patient d/t potential patient harm. anticholin ergics interact with currently rx medication s and combo may incr. risk of DENTAL TECHNOLOGY ADVISOR depression , psychomoto r impairment . Also pt is 72 years old, and anticholin ergics should be avoided d/t BEERS criteria.B eta 3 agonists are the safest alternativ e for this patient. -PFPT- unable to travel. she does not have a PFPT provider within a [address] from her home.-fail ed bladder training. [id number] [facility] 1 [place] [address] 10/01/2023 10:33:52 10/01/2023 11:15:46 Recurrent urinary tract infection N39.0 -continue estradiol VC. Hydronephrosis 15192234 N13.30 Chronic ki dney disease stage 4 225202005 N18.4 Hypertensive disorder 38 845622 I10 Type 2 lexx betes mellitus 87646744 E11.21 Coronary arteriosclerosis 96205103 I25.10 Mixed urin nasra incontinence 828243302 N39.46 Overactive urinary bladder 698832334 N32.81 -avoid anticholin ergics in this patient d/t potential patient harm. anticholin ergics interact with currently rx medication s and combo may incr. risk of DENTAL TECHNOLOGY ADVISOR depression , psychomoto r impairment . Also pt is 72 years old, and anticholin ergics should be avoided d/t BEERS criteria.B eta 3 agonists are the safest alternativ e for this patient. -PFPT- unable to travel. she does not have a PFPT provider within a [address] from her home.-fail ed bladder training. [id number] [facility] 1 [place] [address] 11/12/2023 10:37:57 11/12/2023 11:26:49 Recurrent urinary tract infection N39.0 -continue estradiol VC. Hydronephrosis 47105776 N13.30 Chronic ki dney disease stage 4 973977048 N18.4 Hypertensive disorder 38 465109 I10 Type 2 lexx betes mellitus 34263420 E11.21 Coronary arteriosclerosis 05161956 I25.10 Mixed urin nasra incontinence 301291422 N39.46 Overactive urinary bladder 910738707 N32.81 -avoid anticholin ergics in this patient d/t potential patient harm. anticholin ergics interact with currently rx medication s and combo may incr. risk of DENTAL TECHNOLOGY ADVISOR depression , psychomoto r impairment . Also pt is 72 years old, and anticholin ergics should be avoided d/t BEERS criteria.B eta 3 agonists are the safest alternativ e for this patient. -PFPT- unable to travel. she does not have a PFPT provider within a [address] from her home.-fail ed bladder training. [id number] [facility] [address] [place] [address] 12/31/2023 10:10:39 12/31/2023 10:57:14 Recurrent urinary tract infection N39.0 -continue estradiol VC. Hydronephrosis 63277615 N13.30 Chronic ki dney disease stage 4 541298812 N18.4 Hypertensive disorder 38 109582 I10 Type 2 lexx betes mellitus 73911224 E11.21 Coronary arteriosclerosis 45346007 I25.10 Mixed urin nasra incontinence 247249247 N39.46 Overactive urinary bladder 846864690 N32.81 -avoid anticholin ergics in this patient d/t potential patient harm. anticholin ergics interact with currently rx medication s and combo may incr. risk of DENTAL TECHNOLOGY ADVISOR depression , psychomoto r impairment . Also pt is 72 years old, and anticholin ergics should be avoided d/t BEERS criteria.B eta 3 agonists are the safest alternativ e for this patient. -PFPT- unable to travel. she does not have a PFPT provider within a [address] from her home.-fail ed bladder training. Body mass index 25-29 - overweight 528517445 Z68.28 BMI 28.9 Overweight 364838812 E66 .3 Patient me dical record not available 562130144 Z76.89 [id number] Margarita Banks APRN [facility] 1 [place] [address] 11/27/2023 09:40:33 11/27/2023 10:21:23 Recurrent urinary tract infection 040159186 N39.0 -continue estradiol VC. Hydronephrosis 74195157 N13.30 Chronic ki dney disease stage 4 626775079 N18.4 Hypertensive disorder 38 019358 I10 Type 2 lexx betes mellitus 03842930 E11.21 Coronary arteriosclerosis 73747296 I25.10 Mixed urin nasra incontinence 568025414 N39.46 Overactive urinary bladder 509403908 N32.81 -avoid anticholin ergics in this patient d/t potential patient harm. anticholin ergics interact with currently rx medication s and combo may incr. risk of DENTAL TECHNOLOGY ADVISOR depression , psychomoto r impairment . Also pt is 72 years old, and anticholin ergics should be avoided d/t BEERS criteria.B eta 3 agonists are the safest alternativ e for this patient. -PFPT- unable to travel. she does not have a PFPT provider within a [address] from her home.-fail ed bladder training. Candidiasis of mouth 797 37720 B37.0 Candidiasis of vagina 72 821211 B37.31 reported per pt with abx tx. Patient me dical record not available 764669768 Z76.89 [id number] Dylan Lebron APRN [address] [address] 12/02/2023 10:14:12 12/02/2023 11:50:08 Neuropathy 849145217 G62.9 Pt compliant with plan of careDonald reviewed and appropriat emedicatio n compliance discussedC ontrol substance agreement on fileuds: Syncope 099647294 R55 if episode happens go to ed Intermitte nt confusion 034354900 R41.0 referral to neuro Candidiasis of skin 4988 3006 B37.2 yogurt Candidiasis of mouth 797 34872 B37.0 [id number] [facility] 1 [place] [address] 02/04/2024 11:12:56 02/04/2024 13:31:27 Recurrent urinary tract infection 800646638 N39.0 -continue estradiol VC. Hydronephrosis 96624037 N13.30 Chronic ki dney disease stage 4 551272995 N18.4 Hypertensive disorder 38 657111 I10 Type 2 lexx betes mellitus 24605058 E11.21 Coronary arteriosclerosis 75080513 I25.10 Mixed urin nasra incontinence 741768268 N39.46 Overactive urinary bladder 569181867 N32.81 -avoid anticholin ergics in this patient d/t potential patient harm. anticholin ergics interact with currently rx medication s and combo may incr. risk of DENTAL TECHNOLOGY ADVISOR depression , psychomoto r impairment . Also pt is 72 years old, and anticholin ergics should be avoided d/t BEERS criteria.B eta 3 agonists are the safest alternativ e for this patient. -PFPT- unable to travel. she does not have a PFPT provider within a [address] from her home.-fail ed bladder training. Body mass index 25-29 - overweight 160942930 Z68.28 BMI 28.9 Overweight 584957336 E66 .3 Acute urin nasra tract infection 263922129 N39.0 [id number] [facility] 1 [place] [address] 03/24/2024 11:07:18 03/24/2024 11:59:47 Recurrent urinary tract infection 403264608 N39.0 -continue estradiol VC. Hydronephrosis 37382137 N13.30 Chronic ki dney disease stage 4 044722525 N18.4 Hypertensive disorder 38 043738 I10 Type 2 lexx betes mellitus 11439260 E11.21 Coronary arteriosclerosis 57862298 I25.10 Mixed urin nasra incontinence 186477876 N39.46 Overactive urinary bladder 069206043 N32.81 -avoid anticholin ergics in this patient d/t potential patient harm. anticholin ergics interact with currently rx medication s and combo may incr. risk of DENTAL TECHNOLOGY ADVISOR depression , psychomoto r impairment . Also [...] legs. Body mass index 25-29 - overweight 381969402 Z68.28 BMI 28.9 Overweight 095090483 E66 .3 [id number] Dylan Lebron [address] [address] 02/24/2024 10:32:52 02/24/2024 12:15:00 Type 2 diabetes mellitus 03624536 E11.21 labs Influenza vaccine needed 7988215292 106 Z23 Coronary arteriosclerosis 23018900 I25.10 follow up with cardiology as scheduled Hypercholesterolemia 136 78540 E78.00 labs Hypertensive disorder 38 117247 I10 labs Hypothyroidism 13319580 E03.9 labs Neuropathy 204368802 G62 .9 Pt compliant with plan of careDiamegha reviewed and appropriat emedicatio n compliance discussedC ontrol substance agreement on fileuds: Candidiasis of skin 4988 3006 B37.2 yogurt Long-term drug therapy 548837522 Z79.575 [id number] Dylan Lebron [address] [address] 03/08/2024 14:13:34 03/08/2024 15:45:05 Type 2 diabetes mellitus 61807645 E11.21 needs the omnipod 5 that works with dexcom 7 so the pump can adjust based on cgm, high risk for hyperglyce sera Low back pain 682056298 M54.41 seen xray and talked with pt- due to broken hardware i have asked they only work with pt on her gait and balance and informed pt of xray results so she would understand . [id number] [facility] [address] [place] [address] 05/25/2024 11:21:29 05/25/2024 12:02:02 Recurrent urinary tract infection N39.0 -continue estradiol VC. Hydronephrosis 52192508 N13.30 Chronic ki dney disease stage 4 242437772 N18.4 Hypertensive disorder 38 162986 I10 Type 2 lexx betes mellitus 05957654 E11.21 Coronary arteriosclerosis 03195677 I25.10 Mixed urin nasra incontinence 427508997 N39.46 Overactive urinary bladder 092088447 N32.81 -avoid anticholin ergics in this patient d/t potential patient harm. anticholin ergics interact with currently rx medication s and combo may incr. risk of DENTAL TECHNOLOGY ADVISOR depression , psychomoto r impairment . Also [...] legs. Body mass index 25-29 - overweight 306703602 Z68.28 BMI 28.9 Overweight 207945665 E66 .3 [id number] [facility] [address] [place] [address] 08/24/2024 10:39:52 08/24/2024 11:30:09 Recurrent urinary tract infection 663723147 N39.0 -continue estradiol VC. Overactive urinary bladder 281525651 N32.81 -avoid anticholin ergics in this patient d/t potential patient harm. anticholin ergics interact with currently rx medication s and combo may incr. risk of DENTAL TECHNOLOGY ADVISOR depression , psychomoto r impairment . Also pt is 72 years old, and anticholin ergics should be avoided d/t BEERS criteria.B eta 3 agonists are the safest alternativ e for this patient. -PFPT- unable to travel. she does not have a PFPT provider within a [address] from her home.-fail ed bladder training. failed myrbetriq- caused swelling in legs. Hydronephrosis 13866861 N13.30 Chronic ki dney disease stage 4 247189595 N18.4 Hypertensive disorder 38 592865 I10 Type 2 lexx betes mellitus 72580782 E11.21 Coronary arteriosclerosis 08820325 I25.10 Mixed urin nasra incontinence 891590169 N39.46 Body mass index 25-29 - overweight 951407189 Z68.28 BMI 28.9 Overweight 382815112 E66 .3 [id number] Dylan Lebron [address] [address] 2024 12:53:40 2024 14:27:55 Type 2 diabetes mellitus 90119458 E11.21 needs the omnipod 5 that works with dexcom 7 so the pump can adjust based on cgm, high risk for hyperglyce sera Hypertensive disorder 38 800088 I10 Hypercholesterolemia 136 36706 E78.00 Gastroesop hageal reflux disease 448814453 K21.9 Hypothyroidism 70025884 E03.9 Neuropathy 464930079 G62 .9 Pt compliant with plan of careKasper reviewed and appropriat emedicatio n compliance discussedC ontrol substance agreement on fileuds: Arthritis 0140544 M19.90 Coronary arteriosclerosis 27922653 I25.10 follow up with cardiology as scheduled Acute urin nasra tract infection 907676378 N39.0 increase fluidsurol ogy consultcx Abnormal g ait due to impairment of balance 854575171 R26.89 [id number] Dylan Lebron [address] [address] 07/19/2024 10:50:07 07/19/2024 12:07:19 Acute urinary tract infection 812258305 N39.0 increase fluidsurol ogy consultcx Type 2 lexx betes mellitus 76031478 E11.21 needs the omnipod 5 that works with dexcom 7 so the pump can adjust based on cgm, high risk for hyperglyce miacarb to insulin ratio changed and target range adjusted. Vertigo 572388132 R42 [id number] Margarita Banks APRN [facility] [address] [place] [address] 10/08/2024 13:08:12 10/08/2024 14:14:05 Recurrent urinary tract infection 268547831 N39.0 -continue estradiol VC. Overactive urinary bladder 895283147 N32.81 -avoid anticholin ergics in this patient d/t potential patient harm. anticholin ergics interact with currently rx medication s and combo may incr. risk of DENTAL TECHNOLOGY ADVISOR depression , psychomoto r impairment . Also [...] d gemtesa- caused swelling in legs. Hydronephrosis 35241745 N13.30 Chronic ki dney disease stage 4 154925724 N18.4 Hypertensive disorder 38 485121 I10 Type 2 lexx betes mellitus 42016546 E11.21 Coronary arteriosclerosis 34539644 I25.10 Mixed urin nasra incontinence 480027410 N39.46 Body mass index 25-29 - overweight 972834908 Z68.28 BMI 28.9 Overweight 607160630 E66 .3 [id number] Dylan Lebron APRN [address] [address] 09/02/2024 13:48:04 09/02/2024 15:32:54 Neuropathy 739186729 G62.9 Pt compliant with plan of careDonald reviewed and appropriat emedicatio n compliance discussedC ontrol substance agreement on fileuds: Long-term drug therapy 296758799 Z79.899 Acute maxi llary sinusitis 63892908 J01.00 on cipro Cough 37809699 R05.9 meds [id number] Dylan Lebron [address] [address] 09/27/2024 11:37:40 09/27/2024 12:12:41 Candidiasis of vagina 91912944 B37.31 771301 take diflucan tab- only took one tabwait for cx results on urine and vaginal- before starting antibiotic s Burning se nsation of vagina 914005636 N94.89 593929 Pruritus of vagina 19666 003 N89.8 200081 [id number] Margarita Banks [facility] 1 [place] [address] 02/11/2025 12:58:26 02/11/2025 14:05:53 Recurrent urinary tract infection 684964790 N39.0 -continue estradiol VC. Overactive urinary bladder 855887672 N32.81 -avoid anticholin ergics in this patient d/t potential patient harm. anticholin ergics interact with currently rx medication s and combo may incr. risk of DENTAL TECHNOLOGY ADVISOR depression , psychomoto r impairment . Also [...] d gemtesa- caused swelling in legs. Hydronephrosis 74958248 N13.30 Chronic ki dney disease stage 4 567480341 N18.4 Hypertensive disorder 38 855702 I10 Type 2 lexx betes mellitus 63873088 E11.21 Coronary arteriosclerosis 13388398 I25.10 Mixed urin nasra incontinence 803507939 N39.46 Body mass index 25-29 - overweight 299633211 Z68.28 BMI 28.9 Overweight 817652291 E66 .3 [id number] Dylan Lebron CLINICAL TECH [address] [address] 11/19/2024 10:13:18 11/19/2024 13:47:54 Adult health examination 698196347 Z00.00 Depression screening 171 613207 Z13.31 A depression screening was completed via a standardiz ed screening tool. 5 minutes were spent discussing depression screening results and risk factors. Examinatio n of blood pressure 368180505 Z01.30 Diet education 97331186 Z71.3 Counseling 497997747 Z71 .82 Exercise counseling . Patient encouraged to exercise 30 minutes 5 days a week. At [facility] ed risk for falls 770065346 Z91.81 STEADI FAST screening score of _12____. 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 7780915808 58727 E11.621 L97.529 92163099 follow up with podiatryan tibioticsb etadine soaked dressings change dressing daily Pain of le ft knee joint 4782525463 90046 M25.562 225109 Impaired cognition 46441 6002 G31.84 610738 Low blood pressure 72544 003 I95.9 2261074315 Syncope and collapse 309 861303 R55 03845 if episode happens go to ed [id number] Dylan Lebron APRN [address] [address] 11/29/2024 12:36:15 11/29/2024 14:31:57 Acute urinary tract infection 821497213 N39.0 802510 increase fluids cx Syncope and collapse 309 387303 R55 13895 if episode happens go to ed Type 2 lexx betes mellitus 44500545 E11.21 Infection of foot due to diabetes mellitus 030334052 E11.628 L08.9 6490516 follow up with taty on ue antibiotic s- one dose left [id number] Eugonda Fryman, [address] [address] 12/09/2024 10:12:10 12/09/2024 11:19:38 Acute urinary tract infection 861115450 N39.0 851774 advised to go to er for eval - pt declined at this timetake antibiotic as ordereddis cussed risk Neuropathy due to type 2 diabetes mellitus 2072392441 00020 E11.40 Z79.4 30899268 [id number] Dylan Lebron [address] [address] 02/03/2025 08:58:16 02/03/2025 10:21:01 Medical equipment or device education 712474116 Z46.81 390989 pt did not remember her id or password, called omnipod and had them reset. omnipod 5 set up with settings from [employer]. pump working. educated pt/ about device and dexcom. pt/ states the understand and no questions at this time [id number] Dylan Lebron [address] [address] 03/21/2025 10:55:35 03/21/2025 12:17:33 Neuropathy 337967255 G62.9 Pt compliant with plan of careKasper reviewed and appropriat emedicatio n compliance discussedC ontrol substance agreement on fileuds: Arthritis 3904381 M19.90 Influenza vaccine needed 4113953240 106 Z23 Health Concerns Section Related Observation LastModified by Organization Detai ls LastModified Time None Recorded Concern Status LastModified by Organization Details LastModified Time None Recorded Advance Directives Directive N: Payers Insurance Date Sequence Insurance Name Policy Number Policy Elena Covered Member ID Elena Member ID Guarantor Name 03/18/2025 [employer] [place] - [place] [facility] (MEDICARE) Jillian Robert [id number] Jillian Robert 03/18/2025 1 [place] Jillian Robert [id number] Jillian Robert 01/05/2022 1 [place] [employer] Jillian Robert [id number] Jillian Robert 03/18/2025 2 FOR LIFE ( - MEDICARE SUPPLEMENT) [id number] Mariano Robert [id number] Jillian Robert 12/17/2021 2 FOR LIFE () Jillian Robert [id number] Jillian Robert Notes Date Note Type Note Provider Name and Address Organization Details Recorded Time 5 text/html Emergency Department Follow-Up RecordReported by PatientEmergency Room Follow-Up RecordFor discharge information, patient reportsname of hospital/urgent care patient was [facility]: [facility]patient presented to hospital/urgent care on or around: actual date 11/19/24,patient presented to hospital for treatment of: (syncope/low bp),treatment received by hospital/urgent care: (labs, ct scan, heart monitor),patient's condition has: improved, andhospital records available at the time of this visit: yes. 74 yr old female presents for an [...] months but more noticeable lately. Dylan Lebron, CLINICAL TECH [address], [place], [address], [place] - [facility] 11/29/2024 14:13:11 5 text/html ROS as noted in the HPI 74 yr old female presents for lab/cmp nurse visit. Vital signs are abnormal, patient diaphoretic, flushed and nauseated. reports an episode of blindness and hurting all over around 2 am this am, ems was called but she had improved when ems arrived, refused hospital transport. pt states having n/v and zofran not helping. want script for phenergan Dylan Lebron, CLINICAL TECH [address], [place], [address], [place] - [facility] 12/09/2024 13:46:39 5 text/html Diabetes F/UReported by PatientHPIFor context, patient reportshome blood sugar range highbut reportsseeing eye doctor regularlyandchecking feet regularly. For review finger sticks, patient reportsfastin. For labs, patient reportslast a1c result: 8.9. For associated symptoms, patient reportsno weight gain,no weight loss,no dizziness,no sweats,no headaches,no confusion,no increased thirst,no increased appetite,no increased urination,no blurred vision,no numbness of feet, andno calluses on feet. 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 The omnipod 5 will automatically correct glucose level with delivery of insulin based on the CGM reading; closed loop capable. The omnipod 5 will also stop the delivery of insulin if the patient has hypoglycemia where as the dash version will continue to deliver insulin until manually stopped. She still has a wound to her left foot and sees podiatry. She is also seeing Dr. Lai for cardiac work up. She is scheduled for a chemical stress test tomorrow. Fina perales, [facility] - [facility] 02/22/2025 15:17:20 5 text/html Lower Urinary Tract Symptoms (LUTS)Reported by [...] december 2022- d/c summary from [facility] reports admit for left pyelo UCX grew klebsiella pneumoniae. -01/13/23- UCx negative.-01/13/23- creat 2.2, gfr 27. -01/13/23- CT abd pel w/o- per report- moderate hydronephrosis and hydroureter on the left, stable. moderate thickening of the bladder, likely d/t under distension. -01/14/23- d/c summary from [facility]- reviewed. admitted 01/13/23 for uti. ucx [...] on methenamine and vitamin C Margarita Banks, CLINICAL TECH [address], [place], [address], [place] [facility] 02/11/2025 13:54:28 5 text/html 74 yr old female presents for refills on medications. She would also like to have a flu vaccine and reports her blood sugar has been going low in or nurse manager since changing back to the dash pump.pt states gabapentin helps with her neuropathy Dylan Lebron, CLINICAL TECH [address], [place], [address], [place] [facility] 03/21/2025 12:15:10 OBGyn Episode No OBEpisode recorded.
--- OUTSIDE RECORDS SUMMARY | 2025-04-12 15:14 | XMS_ITS | Clinical Summary ---
Author Organization [facility] Address [address] [place] [address] Care Team Providers Care Licensed Psychologist Director Name Role Phone Roman King CATHETER FINISHER AND INSPECTOR Primary Care Provider [phone] Allergies Active Allergy Reactions Criticality Noted Date [...] Disposable Pump (Omnipod DASH Pods, Gen 4,) [facility] Active Insulin Disposable Pump (Omnipod DASH Pods, Gen 4,) [facility] Omnipod Dash Pods (Gen [...] Date Resolved Date Arthritis 12/17/2021 01/23/2023 02/27/2025 Immunizations Immunization Administration Dates Next Due Influenza, [...] Description 04/22/2025 10:40 AM EST Office Visit [facility] [address] [place] [address] Isabel Womack, CATHETER FINISHER AND INSPECTOR [address] [facility] [address] [place] [address] Health Maintenance Due Date Last Done Comments [facility]-Depression Screening 1950 [facility]-Diabetes: Hemoglobin A1C 1950 [facility]-Hepatitis C Screening 1950 [facility]-Medicare Annual Wellness (AWV) 1950 [facility]-Infant/Child/Adol SDOH Screenings [...] (2 - Td or Tdap) 04/20/2023 04/20/2013 [facility]-Bone Density Scan 06/18/2024 06/18/2023 [id number] Vaccine ( season) 2025 04/11/2021, 08/31/2020, 08/02/2020 [facility]-Influenza Vaccine [...] age to complete this topic Insurance MEDICARE [employer] Care Teams Licensed Psychologist Director Relationship Specialty Start Date End Date Roman King APRN [address] [place] [address] [facility] - General 01/21/22
--- OUTSIDE RECORDS SUMMARY | 2025-04-12 15:14 | XMS_ITS | Continuity of Care Document ---
Author Organization [place] - [place] - [place], [facility] Address [address] [place] [address] Assessment No assessment recorded. Plan of Treatment Reminders Order Date Submit Date Provider Last Modified By Organization Details Last Modified Time Details Appointments INJ ONLY 15 2024 01:00P M LASHELL MALLORY, DO Not available Not available Not available Lab None recorded. Referral None recorded. Procedures None recorded. Surgeries None recorded. Imaging None recorded. Medication Orders Kenalog 10 mg/mL suspensio n for injection [address], [address], 03/07/2025 12:22:46 bupivacai ne (PF) 0.5 % (5 mg/mL) injection solution [address], [address], 03/07/2025 12:22:46 Patient TargetsNo targets recorded. Patient InstructionsNo instructions [...] null, [place] [facility] [place] 05/10/2024 13:41:40 Influenza, high-dose, quadrivalent, PF 04/25/2023 completed Diann Sweeney-Pitakis [place] [facility] [place] 05/10/2024 13:41:40 COVID-19, mRNA, LNP-S, PF, 100 mcg/0.5mL dose or 50 mcg/0.25mL dose 08/02/2020 completed Diann Sweeney-Pitakis [place] [facility] [place] 05/10/2024 13:41:40 COVID-19, mRNA, LNP-S, PF, 100 mcg/0.5mL dose or 50 mcg/0.25mL dose 08/31/2020 completed Diann Sweeney-Pitakis [place] [facility] [place] 05/10/2024 13:41:40 COVID-19, mRNA, LNP-S, PF, 100 mcg/0.5mL dose or 50 mcg/0.25mL dose 04/11/2021 completed Diann Sweeney-Pitakis [place] [facility] [place] 05/10/2024 13:41:41 Tdap 04/20/2013 completed Diann Sweeney-Pitakis [place] [facility] [place] 05/10/2024 13:41:41 zoster live 04/20/2013 completed Diann Sweeney-Pitakis [place] [facility] [place] 05/10/2024 13:41:41 Influenza, high-dose, trivalent, PF 02/24/2024 completed Mercedez Yen [place] [facility] 09/01/2024 10:16:21 Influenza, high-dose, trivalent, PF 05/16/2021 completed Diann Urbina [place] [facility] [place] 05/10/2024 13:41:41 Past Encounters Encounter ID Performer Location Encounter Start Date Encounter Closed Date Diagnosis/Indication Diagnosis SNOMED-CT Code Diagnosis ICD10 Code Diagnosis IMO Codes Diagnosis Note [id number] LASHELL TEJADA DO Monica dee [facility] [address] [place] [address] 03/07/2025 10:24:07 03/07/2025 10:57:19 Trochanteric bursitis of right hip 6596319898 63210 M70.61 [id number] Health Concerns Section Related Observation LastModified by Organization Detai ls LastModified Time None Recorded Concern Status LastModified by Organization Details LastModified Time None Recorded Payers Encounter Date Sequence Insurance Name Policy Number Policy Elena Covered Member ID Elena Member ID Guarantor Name 03/07/2025 1 [place] Jillian Robert [id number] Jillian Robert 03/07/2025 2 FOR LIFE () Jillian Robert [id number] Jillian Robert Notes Date Note Type Note Provider Name and Address Organization Details Recorded Time 03/07/2025 text/html 6.27.25 RIGHT hip bursa was injected- effective until [id number] LASHELL TEJADA DO [address] [facility],[address], [place], [address], [place] [facility] [place] 03/07/2025 12:15:16 OBGyn Episode No OBEpisode recorded.
--- OUTSIDE RECORDS SUMMARY | 2025-04-12 15:14 | XMS_ITS | Clinical Summary ---
Author Organization [facility] Address [address] [place] [address] Care Team Providers Care Pillowcase Cleaner Name Role Phone Roman King GAMA Primary Care Provider [phone] Social History Tobacco Use Types Packs/Day Years Used Date Smoking Tobacco: Never Assessed Comments Unknown Sex and Gender Information Value Date Recorded Sex Assigned at Not on file Legal Sex Female 11:23 AM EDT Gender Identity Not on file Sexual Orientation Not on file Plan of Treatment Upcoming Encounters Date Type Department Care Team (Late st Contact Info) Description 09/07/2025 1:30 PM EDT Office Visit [facility] [address] [facility] [address] [place] [phone] Jennie Kebede APRN [address] [facility] [address] [place] [address] Health Maintenance Due Date Last Done Comments ANNUAL WELLNESS VISIT 1950 HEPATITIS C SCREENING 1950 MAMMOGRAM 1990 COLOGUARD 1995 COLON CANCER SCREENING 5 YEA R SIGMOIDOSCOPY 1995 COLONOSCOPY 1995 [address]AL CANCER SCREENING 1995 CT COLONOGRAPHY 1995 FECAL OCCULT BLOOD TEST 1995 FIT Testing (1 year) 1995 Pneumococcal Vaccine 50+ (1 of 1 - PCV) 2000 ZOSTER VACCINE (2 of 3) 06/15/2013 04/20/2013 TDAP/TD VACCINES (2 - Td or Tdap) 04/20/2023 013 INFLUENZA VACCINE 01/07/2025 02/24/2024, , 02/21/2022, Additional history exists COVID-19 Vaccine (2024-2 6 season) 2025 08/31/2020, 08/02/2020 DXA SCAN 06/18/2025 06/18/2023, 06/18/2023 Procedures Procedure Name Priority Date/Time Associated Diagnosis Comments SCANNED - IMAGING 03/01/2025 SCANNED - IMAGING 03/01/2025 from Last 3 Months Results * IMAGING SCANNED (03/01/2025) Only the most recent of2 resultswithin the time period is included. Anatomical Region Laterality Modality Radiographic Roz ging [facility] Onbase IMG DIAGNOSTIC IMAGING ORDERA BLES Final Result from Last 3 Months Insurance MEDICARE A & B [facility] Care Teams Pillowcase Cleaner Relationship Specialty Start Date End Date Roman King APRN [address] [place] [address] [place], [place] [id number] PCP - General Family Medicine 03/30/25
--- NOTE | 2025-04-12 15:15 | XR_ITS ---
FINAL REPORT CLINICAL HISTORY: left hallux ulcer, cellulitis COMPARISON: 01/31/2022 FINDINGS: AP, oblique and lateral views of the left foot were obtained. There is no acute fracture or dislocation. No bone destruction is identified. Multijoint degenerative disease is present, most prominent in the midfoot. There is mild soft tissue edema surrounding the great toe. No radiopaque foreign body is identified. IMPRESSION: Multijoint degenerative disease, most prominent in the midfoot. Mild soft tissue edema surrounding the great toe. Reviewed, Interpreted and Dictated by Emma Kamara MD Transcribed by Ashley Prado Authenticated and [facility]
== END 2025-04-12 23:59 | disposition home or self-care (01) ==
LOC: RAD 15:07
PROVIDERS: PCP Nurse Practitioner Family; Visit Provider Podiatrist
DX: L03.116 Cellulitis of left lower limb (principal); E11.621 Type 2 diabetes mellitus with foot ulcer; L97.529 Non-pressure chronic ulcer of other part of left foot with unspecified severity; M19.072 Primary osteoarthritis, left ankle and foot
CPT/HCPCS: 73630

== ENCOUNTER 2025-04-15 14:21 | Outpatient (CLI) | payer MEDICARE, OTHER, SELFPAY ==
--- OUTSIDE RECORDS SUMMARY | 2025-04-15 14:26 | XMS_ITS | Clinical Summary ---
Author Organization [facility] Address [address] [place] [phone] Phone Care Team Providers Care Car Sweeper Name Role Phone Maine Patel [phone] Conditions or Problems Problem Name Problem Code Onset Date Status Entry Date Provider Comment Standard Description Annotate PAIN IN HIP, RIGHT M25.551 (ICD-10-CM ) 02/12 Active 02/12 Mainejone Patel Pain in right hip *AFTRCR FOLLOW SRG MUSCULOSKELETAL SYSTEM NEC Z48.89 (ICD-10-CM ) 08/26 Active 08/26 Pat Short MA Encounter for other specified surgical aftercare OVERWEIGHT 256076716 (SNOMED CT) Active Pat Short MA Overweight LUMBAR SPONDYLOLISTHESI S, ACQUIRED, 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 (ICD-10-CM ) Active Ly Joshi ACCOUNTING 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 CONTROLLER 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 sis, lumbar region LUMBAR RADICULOPATHY 199844622 (SNOMED CT) Active Dianne Chatterjee MA Lumbar radiculopathy Medications Medication Instructions Start Date Stop Date Generic Name NDC Provider ESTRADIOL 0.1 MG/GM CREA estradiol 70174596660 Flor Colón MYRBETRIQ 25 MG [id number] mirabegron 59104218515 Flor Colón FLUCONAZOLE 150 MG TABS fluconazole 03930680164 Flor Colón OMEPRAZOLE 40 MG CPDR omeprazole 78202932775 Flor Colón VENLAFAXINE HCL ER 75 MG [id number] venlafaxine 72089509268 Flor Colón GNP ADVANCED PROBIOTIC CAPLET 60CT take one caplet BY MOUTH EVERY DAY GNP ADVANCED PROBIOTIC CAPLET 60CT Flor Katarzyna OMNIPOD DASH PODS (GEN 4) USE DIRECTED (CHANGE omnipod every 72 hours) insulin pump cart,cont inf,bt 98493130161 Flor Katarzyna ROSUVASTATIN CALCIUM 40 MG TABS rosuvastatin 44806389997 Flor Colón Vitamin C 500 mg tablet TAKE ONE TABLET BY MOUTH TWICE DAILY ascorbic acid (vitamin c) 29830548406 Flor Colón LEVOTHYROXINE SODIUM 112 MCG TABS levothyroxine 09108028866 Flor Colón INSULIN LISPRO 100 UNIT/ML SOLN insulin lispro 87991237411 Leonid Colón GABAPENTIN 600 MG TABS gabapentin 88622060008 Flor Colón CARVEDILOL 25 MG TABS carvedilol 08138231894 Flor Colón VASCEPA 0.5 GM CAPS icosapent ethyl 53491372083 Flor Colón ALLOPURINOL 100 MG TABS allopurinol 19835310038 Flor Colón OMEPRAZOLE 10 MG CPDR omeprazole 02302114279 Flor Colón VENLAFAXINE HCL 25 MG TABS venlafaxine 20422956464 Flor Colón TRAMADOL HCL 50 MG TABS Take 1 tablet by mouth every six hours as needed for pain tramadol 20356142329 Ki Lawson MD TRAMADOL HCL 50 MG TABS Take 1 tablet by mouth every six hours tramadol 60818054521 Ki Lawson MD TRAMADOL HCL 50 MG TABS tramadol 23568805838 Ly STROUD TRAMADOL HCL 50 MG TABS Take 1 tablet by mouth every six hours as needed for pain tramadol 04568439329 Ly STROUD OMNIPOD DASH PODS (GEN 4) insulin pump cart,cont inf,bt 84977028162 Dianne Chatterjee MA ROSUVASTATIN CALCIUM 40 MG TABS rosuvastatin 70065805634 Dianne Chatterjee MA VASCEPA 1 GM CAPS icosapent ethyl 38955131018 Dianne Chatterjee MA NITROFURANTOIN MONOHYD MACRO 100 MG CAPS nitrofurantoin monohyd/m-cryst 66873834208 Dianne Chatterjee MA CEFDINIR 300 MG CAPS cefdinir 07035676300 Dianne Chatterjee MA LEVOXYL 112 MCG TABS levothyroxine 17369587237 Dianne Chatterjee MA LEVOFLOXACIN 500 MG TABS levofloxacin 68181137142 Dianne Chatterjee MA CEPHALEXIN 500 MG CAPS cephalexin 75065836839 Dianne Chatterjee MA TRAMADOL HCL 50 MG TABS tramadol 81547832310 Dianne Chatterjee MA INSULIN LISPRO 100 UNIT/ML SOLN insulin lispro 15085027753 Dianne Chatterjee MA OMEPRAZOLE 40 MG CPDR omeprazole 78519711269 Dianne Chatterjee MA HYDROCODONE-ACETA MINOPHEN 5-325 MG TABS hydrocodone-acet aminophen 98771365884 Dianne Chatterjee MA ALLOPURINOL 100 MG TABS allopurinol 50659904756 Dianne Chatterjee MA FLUCONAZOLE 150 MG TABS fluconazole 50758455534 Dianne Chatterjee MA OXYBUTYNIN CHLORIDE ER 10 MG [id number] oxybutynin chloride 86142756013 Dianne Chatterjee MA GABAPENTIN 600 MG TABS gabapentin 98176718258 Dianne Chatterjee MA CARVEDILOL 25 MG TABS carvedilol 12775475648 Dianne Chatterjee MA VENLAFAXINE HCL ER 75 MG [id number] venlafaxine 71844250089 Dianne Chatterjee MA FLUCONAZOLE 100 MG TABS fluconazole 31205899065 Dianne Chatterjee MA Medications Administered No information [...] Care Type Date Detail Referral Orthopedic Refer [address], [address] Pending order X-Ray Lumbar AP Lateral & [...] Procedures Code Procedure Name Date Entry Date [facility] [email or web address]]-[id number] Flu Shot Previously Received [id number] Pneumonia Vaccine Previously Received 02/08/25 SCT-[id number] Medications Documented [id number] Flu Shot Previously Received SCT-[id number] Pneumonia Vaccine Previously Received 01/05/20 SCT-[id number] Medications Documented SCT-[id number] Pneumonia Vaccine Previously Received 01/03/18 18178 Greater trochanteric bursa injection & follow up with ordering [id number] Flu Shot Previously Received SCT-[id number] Pneumonia Vaccine Previously Received 29/10/21 SCT-[id number] Medications Documented [id number] Flu Shot Previously Received SCT-[id number] Pneumonia Vaccine Previously Received 29/09/16 SCT-[id number] Medications Documented [id number] Flu Shot Previously Received SCT-[id number] Pneumonia Vaccine Previously Received 30/08/19 SCT-[id number] Medications Documented [id number] Flu Shot Previously Received SCT-[id number] Pneumonia Vaccine Previously Received 01/08/02 SCT-[id number] Medications Documented SCT-[id number] Flu Shot Previously Received [facility] [[email or web address]]-[id number] Pneumonia Vaccine Previously Received 30/05/02 [facility] [[email or web address]]-[id number] Medications Documented [facility] [[email or web address]]-[id number] Flu Shot Previously Received [facility] [[email or web address]]-[id number] Medications Documented [facility] [[email or web address]]-[id number] Pneumonia Vaccine Previously Received 30/03/21 Vital Signs Date Name Value Unit Description BMI (Body Mass Index) 27.34 kg/m2 Bod y Mass Index (Ratio) Height 60 [in_us] height E&M Weight Measured 140 [lb_av] weight E& M Weight Measured 140 [lb_av] weight E& M Immunizations No information available. Advance Directives No information available.
--- OUTSIDE RECORDS SUMMARY | 2025-04-15 14:27 | XMS_ITS | Continuity of Care Document ---
Author Organization [facility] Address [address] [place] [address] Care Team Providers Care Advice Nurse Name Role Phone DYLAN KING Primary Care Provider MAKENZIE Dahl Vibrating Screed Operator [phone] STEPH BLAS Hearing Aid Mechanic DENIS RAMIREZ Fabric Sourcer Assessment Encounter Date Assessment Date Assessment LastModified by Organization Details LastModified Time 03/21/2025 03/21/2025 labs next visit [facility] Not available 03/21/2025 12:15:06 Plan of Treatment Reminders Order Date Submit Date Provider Last Modified By Organization Details Last Modified Time Details Appointments Follow Up 20 2024 11:40A M Margarita Banks, LICENSED LAND SURVEYOR Not available Not available Not available Lab None recorded. Referral None recorded. Procedures None recorded. Surgeries None recorded. Imaging None recorded. Medication Orders gabapenti n 600 mg tablet 2024 025 [facility], [address] [place] [address], [address], 03/21/2025 12:14:58 Patient TargetsNo targets recorded. Patient InstructionsNo instructions recorded. Reason for Referral None Reported. Results Created Date Observation Date Name Description Value Unit Range Abnormal Flag Note LastModifiedBy Organization Detail LastModifiedTime 02/23/2001/28/2025 US, doppl er echoc ardio gram, w/ color flow No observ ation [facility] [address] [facility], [place], [address], 02/22/2025 16:21:35 03/01/20 25 03/01/2025 CT, angio gram, head, w/ contr ast No observ ation record ed. [facility] [address], [place], [address], 03/01/2025 14:03:28 03/01/20 25 03/01/2025 CT, head + brain , w/o contr ast No observ ation record ed. [facility] [address], [place], [address], 03/01/2025 14:03:28 03/01/20 25 03/01/2025 XR, chest , 2 view No observ ation record ed. [facility] [address], [place], [address], 03/01/2025 14:24:36 03/01/20 25 03/01/2025 CT, angio gram, neck, w/ contr ast No observ ation record ed. [facility] [address], [place], [address], 03/01/2025 14:24:16 03/02/20 25 02/04/2025 NM, myoca rdial perfu mychal scan, w/ stres s No observ ation record ed. [facility] [address] [facility], [place], [address], 03/04/2025 13:22:20 03/03/20 25 03/01/2025 elect rocar diogr am No observ ation record ed. [facility] [address], [place], [address], 03/04/2025 13:22:20 04/14/20 25 04/12/2025 XR, foot, 3 or more view No observ ation record ed. [facility] [address], [place], [address], 04/15/2025 08:14:32 Result Notes None recorded. Problems Name Problem SNOMED Code Status Onset Date Resolution Date Notes Provider Name and Address Organization Details Recorded Time Chronic kidney disease stage 3B 226262878 Active Fina perales, [place] - [facility] 5 11:42:05 Type 2 diabetes mellitus 62201071 Active 2021 Dylan Ramirescarito, LICENSED LAND SURVEYOR [address], [place], [address] , [place] - [facility] 2 10:07:29 Hypertensive disorder 58161157 Active 2021 Tonejakenando Ramirescarito, LICENSED LAND SURVEYOR [address], [place], [address] , [place] - [facility] 2 10:07:09 Hypercholeste rolemia 62165765 Active 2021 Tonezion King, LICENSED LAND SURVEYOR [address], [place], [address] , [place] - [facility] 2 10:07:05 Gastroesophag eal reflux disease 000556593 Active 2021 Tonezion carito, LICENSED LAND SURVEYOR [address], [place], [address] , [place] - [facility] 2 10:06:49 Hypothyroidis m 20563712 Active 2021 Tonezion carito, LICENSED LAND SURVEYOR [address], [place], [address] , [place] [facility] 2 10:07:12 Neuropathy 051909910 Active 2021 Dylan Ramirescarito, LICENSED LAND SURVEYOR [address], [place], [address] , [place] [facility] 2 10:07:19 Arthritis 6552564 Active 2021 Dylan Ramirescarito, LICENSED LAND SURVEYOR [address], [place], [address] , [place] [facility] 2 10:06:47 Coronary arteriosclero sis 07606812 Active 2021 Tonezion carito, LICENSED LAND SURVEYOR [address], [place], [address] , [place] [facility] 10:18:21 Coronary artery bypass grafts x 3 Active 2021 Dylan King, LICENSED LAND SURVEYOR [address], [place], [address] , [place] [facility] 10:18:34 Problem Notes None recorded. Procedures Surgical History Date Name Laterality Status Provider Name and Address Organization Details Recorded Time 025 Medication Reconcilliation completed Fina Vasquez [place] - [facility] 11/29/2024 13:05:51 025 Advance Care Planning completed Fina Vasquez [place] - [facility] 11/19/2024 10:41:02 025 IV Infusion completed Fina Vasquez [place] - [facility] 11/19/2024 15:44:19 025 Functional Status Assessed completed Finaradha Vasquez [place] - [facility] 11/19/2024 10:41:02 024 Date of Last Colonoscopy completed Dianando Leivas [place] - [facility] 2024 13:27:50 024 Medication Reconcilliation completed Fina Vasquez [place] - [facility] 12/02/2023 10:36:18 023 In and Out Catheterization completed Margarita Banks, LICENSED LAND SURVEYOR [address], [place], [address], [place] [facility] 02/13/2023 14:34:26 023 Medication [...] Name and Address Organization Details Recorded Time 862944 lisinopri l medicatio n rash Not available high 12/17/2021 39705 RxNorm Fina Vasquez null, [place] - [facility] 2 10:17:08 797942 Oxycontin medicatio n hallucina tions moderate high 12/17/2021 81988 6 RxNorm Fina [place] - [facility] 2 10:18:04 855250 codeine medicatio n rash moderate high 12/17/2021 2670 RxNorm Fina [place], [place] - [facility] 2 10:16:43 449408 acetamino phen / oxycodone medicatio n hallucina tions severe high 12/17/2021 88399 3 RxNorm Fina [place] - [facility] 2 10:17:43 589851 cephalexi n medicatio n eye swelling Not available low 11/11/2022 2231 RxNorm Fina [place], [place] - [facility] 3 12:54:33 869681 Macrobid medicatio n diarrhea moderate high 01/13/2023 73633 1 RxNorm vomit ing and diarr hea [...] Not Available Not Available Not Available [facility] 3 mL 08/22 completed Not Available Not [...] Last Updated DateTime 151.13 cm 26.8 kg/m2 81084.9 7 g 97.6 [degF] 81 /min 95 [...] Or The Highest Degree You Have Received? [id number] Information not available 12/17/2021 Have There Been Any Changes To Your Family Or Social Situation? No Information no t available 07/14/2023 What Is The Fluoride Status Of Your Home? Unknown Information not available 07/14/2023 Have You Recently Or Are You Planning To Travel To An Area With Zika Virus? No Information not available 07/14/2023 Do You Have A Medical Power Of Product Specialist? No Information not available 07/14/2023 What [...] anxious, or unable to sleep at night)? XY1109-5 Information not available 12/20/2021 Do you have difficulty concentrating, remembering or making decisions? No Information no t available 07/14/2023 Family History Relationship Description Onset Age of this Age Resolved Age Notes LastModified by Organization Details LastModified Time Mother Malignant neoplasm of breast bstears Not available 2021 09:28:40 Mother Heart disease 82 85 cbuckler Not available 06/25/ 2024 10:40:01 Brother Type 2 diabetes mellitus API-251 [...] high-dose, quadrivalent, PF 02/21/2022 completed Dylan King, LICENSED LAND SURVEYOR [address], [place], [address], [place] [facility] 03/26/2022 17:30:58 Influenza, high-dose, [...] dose or 50 mcg/0.25mL dose 08/31/2020 completed Finaradha Vasquez null, [place] - [facility] 08/22/2022 14:19:25 [...] ICD10 Code Diagnosis IMO Codes Diagnosis Note [id number] Dylan King APRN [address] [address] 03/21/2025 10:55:35 03/21/2025 12:17:33 Neuropathy 247058569 G62.9 [facility] and appropriat emedicatio n compliance discussedC ontrol substance agreement on fileuds: Arthritis 2973592 M19.90 Influenza vaccine needed [id number] 106 Z23 Health Concerns Section Related Observation LastModified by Organization Detai ls LastModified Time None Recorded Concern Status LastModified by Organization Details LastModified Time None Recorded Payers Encounter Date Sequence Insurance Name Policy Number Policy Elena Covered Member ID Elena Member ID Guarantor Name 03/21/2025 2 FOR LIFE ( - MEDICARE SUPPLEMENT) [id number] Mariano Robert [id number] Jillian Robert 03/21/2025 1 [place] Jillian Robert [id number] Jillian Robert Notes Date Note Type Note Provider Name and Address Organization Details Recorded Time 03/21/2025 text/html 74 yr old female presents for refills on medications. She would also like to have a flu vaccine and reports her blood sugar has been going low in eligibility manager since changing back to the dash pump.pt states gabapentin helps with her neuropathy Dylan King, LICENSED LAND SURVEYOR [address], [place], [address], [facility] - [facility] 03/21/2025 12:15:10 OBGyn Episode No OBEpisode recorded.
--- OUTSIDE RECORDS SUMMARY | 2025-04-15 14:27 | XMS_ITS | Clinical Summary ---
Author Organization [facility] Address [address] [facility] [address] [place] [phone] Phone Care Team Providers Care Job Analysis Manager Name Role Phone Roman Mercer Primary Care Provider [phone] Allergies Active Allergy Reactions Criticality Noted Date [...] this topic Medical Devices Implanted Type Area Lithographers Printer Device Identifier Shelf Expiration Date Model / Serial / Lot Bilateral Iol Lower Back Metal Cage/ 2 Rods/8 Screws Cervical Fusion Right Shoulder Screws/ Anchors Kt Graft 2.8ml Infs Sm Clara Matrx 2-Tn Bnd 5ml Strl H2o - [id number] Implanted:Qty: 1 on 08/14/2022 by Ki Lawson MD at [facility] Bilateral: Spine Lumbar [employer]:SOFAMO R DANEK 06/09/2024 [id number] / / [id number] Cage Modulus Alif [id number] 10 Degree - [id number] Implanted:Qty: 1 on 08/14/2022 by Ki Lawson MD at [facility] N/A: Spine Lumbar NUVASIVE 08/12/2026 [id number] / / [id number] [place] 3dp Interfixated Alif [id number] 2pk - [id number] Implanted:Qty: 2 on 08/14/2022 by Ki Lawson MD at [facility] N/A: Spine Lumbar NUVASIVE 04/03/2026 [id number] / / [id number] Procedures Procedure Name Priority Date/Time Associated Diagnosis [...] bone density assessment. Study was performed on [employer]. Bone Density: Region BMD T-score Z-score Femoral [...] - 1.30 mg/dL 11/30/2022 10:10 AM EDT [facility] eGFR (CKD-EPIcr 2020) 29(L) >=60 mL/min/1. 73 m2 11/30/2022 10:10 AM EDT [facility] Comment:Estimated GFR was ca lculated using the CKD-EPIcr (2020) equation refit without race. The equation is recommended by the National Kidney Foundation - [place] [employer] Neph[employer] Task Force. Blood VENOUS BLOOD / Unknown Venipuncture / Unknown 11/30/2022 8:30 AM EDT 11/30/2022 9:16 AM EDT Fern Hallman MD CHEMISTRY ORDERABLES Final Result Performing Organization Address [facility] Co de Phone Number [facility] [place] [address], [place] [address] [facility] [address] [place] [address] * (ABNORMAL) HEMOGLOBIN A1C (11/26/2022 1:59 PM EDT) Hgb A1C 9.7(H) 4.2 - 5.6 % 11/26/2022 3:06 PM EDT [employer] [facility] Est. Avg Glucose 232 mg/dL 11/26/2022 3:06 PM EDT [employer] [facility] Blood VENOUS BLOOD / Unknown Venipuncture / Unknown 11/26/2022 1:59 PM EDT 11/26/2022 2:05 PM EDT Narrative [employer] [facility] - 11/26/2022 3:06 PM EDT REFERENCE [...] ORDERABLES Fi nal Result Performing Organization Address City/[facility]/ZIP Co de Phone Number [facility] [employer] [address] [facility] [address], [address] [place] [id number] * (ABNORMAL) LIPID SCREEN (11/26/2022 1:59 PM EDT) Cholesterol 143 <200 mg/dL 11/26/2022 3:14 PM EDT [facility] [employer] Comment: < 200 Desirable 200 - 239 Borderline High >= 240 High Triglyceride 383(H) <150 mg/dL 11/26/2022 3:14 PM EDT [facility] [employer] Comment: < 150 Normal 150 - 199 Borderline High 200 - 499 High >= 500 Very High HDL 29(L) >=40 mg/dL 11/26/2022 3:14 PM EDT [facility] Comment: > 60 Optimal 40 - 60 Acceptable < 40 Low LDL Calculated 56 <100 mg/dL 11/26/2022 3:14 PM EDT [facility] Comment: < 100 Optimal 100 - 129 Near or above optimal 130 - 159 Borderline High 160 - 189 High >= 190 Very High Non-HDL-C Calculated 114 <=129 mg/dL 11/26/2022 3:14 PM EDT [facility] [employer] Comment: <130 Desirable 130-159 Above Desirable 160-189 Borderline High 190-219 High >= 220 Very High Fasting Specimen? No None 023 3:14 PM EDT [facility] Blood VENOUS BLOOD / Unknown Venipuncture / Unknown 11/26/2022 1:59 PM EDT 11/26/2022 2:05 PM EDT Lisa Serrano DO CHEMISTRY ORDERABLES Fi nal Result [facility] [employer] [facility] [address] [place] [address] [facility] [address] [place] [address] from Last 3 Months or Most Recently Relevant to Health Maintenance Insurance MEDICARE [place] PART A AND B FOR LIFE FOR LIFE MEDICARE [place] PART A AND B Advance Directives For more information, please contact: [phone] * Full Code (Latest Code Status on File) Date Activated Date Inactivated Comments 11/25/2022 8:31 PM 11/30/2022 5:15 PM * Full Code Date Activated Date Inactivated Comments 08/14/2022 3:40 PM 08/15/2022 8:17 PM Care Teams Job Analysis Manager Relationship Specialty Start Date End Date Roman Mercer [address] [place] [phone] PCP - General Family Medicine 04/24/20
--- OUTSIDE RECORDS SUMMARY | 2025-04-15 14:27 | XMS_ITS | Data Portability ---
Author Organization [facility] Address [address] [place] [address] Care Team Providers Care Clerical Dentist Assistant Name Role Phone DYLAN LEBRON Primary Care Provider MAKENZIE Dahl Employment Evaluator/Case Manager [phone] STEPH BLAS C Java Developer DENIS RAMIREZ Manager Treasury Assessment Encounter Date Assessment Date Assessment LastModified [...] Up 20 2024 11:40A M Margarita Banks, FLOORING MECHANIC Not available Not available Not available Lab urinalysi s, dipstick 2024 025 [facility], [address] [facility], [place], [address], 02/11/2025 13:53:39 CBC w/ auto diff 2024 025 [facility], [address], [address], [place], [address], 12/10/2024 04:06:40 magnesium , serum or plasma 2024 025 [facility], [address], [address], [place], [address], 12/03/2024 17:07:32 urinalysi s, dipstick 2024 025 [facility], [address] [place], [address], 11/29/2024 15:53:01 culture, urine 2024 025 [facility], [address], [address], [place], [address], 12/03/2024 17:07:32 C-peptide , serum 2024 025 [facility], [address], [address], [place], [address], 12/03/2024 17:07:[address] referral - possible seizures 2024 025 [facility], [address] [place] [address], [address], 02/22/2025 15:25:49 Procedures None recorded. Surgeries None recorded. Imaging None recorded. Medication Orders gabapenti n 600 mg tablet 2024 025 [facility], [address] [place] [address], [address], 03/21/2025 12:14:58 estradiol 0.01% (0.1 mg/gram) vaginal cream 2024 025 [facility], [address] [place] [address], [address], 02/11/2025 13:43:27 methenami ne hippurate 1 gram tablet 2024 025 [facility], [address] [place] [address], [address], 02/11/2025 13:53:23 levofloxa idalia 250 mg tablet 2024 025 [facility], [address] [place] [address], [address], 12/11/2024 05:01:53 Patient TargetsNo targets recorded. Patient Instructions Encounter Date Encounter Id Patient Instructions Last Modified By Organization Details Last Modified Time 02/11/2025 [id number] high blood pressure: care instructions Not available [...] blood Blood Glucose: mg/dl 118 Not Available [address], [address], 11/19/2024 15:35:59 11/20/19 25 11/19/2024 gluco se, finge rstic k, blood Reference Range (60-100) abnorm al Not Available [address], [address], 11/19/2024 15:35:59 11/20/19 25 11/19/2024 gluco se, finge rstic k, blood Blood Glucose: mg/dl 150 Not Available [address], [address], 11/19/2024 15:35:37 11/20/19 25 11/19/2024 gluco se, finge rstic k, blood Reference Range (60-100) abnorm al Not Available [address], [address], 11/19/2024 15:35:37 11/30/19 25 11/30/2024 TSH+F REE T4 TSH 1.330 uIU/m L 0.450- 4.500 normal Not Available [facility] ([facility]) [address] [place], [address], 12/03/2024 17:07:28 11/30/19 25 11/30/2024 TSH+F REE T4 T4,free(dire ct) 1.27 NG/dL 0.82-1 .77 normal Not Available [facility] ([facility]) [address] [facility], [place], [address], 12/03/2024 17:07:28 11/30/19 25 11/30/2024 CBC WITH DIFFE RENTI AL/PL ATELE T WBC 10.8 x10e3 /uL 3.4-10 .8 normal Not Available [facility] ([facility]) [address] [facility], [place], [address], 12/03/2024 17:07:28 11/30/19 25 11/30/2024 CBC WITH DIFFE RENTI AL/PL ATELE T RBC 4.65 x10e6 /uL 3.77-5 .28 normal Not Available [facility] ([facility]) [address] [place], [address], 12/03/2024 17:07:28 11/30/19 25 11/30/2024 CBC WITH DIFFE RENTI AL/PL ATELE T hemoglobin 13.7 g/dL 11.1-1 5.9 normal Not Available [facility] ([facility]) [address] [place], [address], 12/03/2024 17:07:28 11/30/19 25 11/30/2024 CBC WITH DIFFE RENTI AL/PL ATELE T hematocrit 43.0 % 34.0-4 6.6 normal Not Available [facility] ([facility]) [address] [place], [address], 12/03/2024 17:07:28 11/30/19 25 11/30/2024 CBC WITH DIFFE RENTI AL/PL ATELE T MCV 93 fL 79-97 normal Not Available [facility] ([facility]) [address] [place], [address], 12/03/2024 17:07:28 11/30/19 25 11/30/2024 CBC WITH DIFFE RENTI AL/PL ATELE T MCH 29.5 pg 26.6-3 3.0 normal Not Available [facility] ([facility]) [address] [place], [address], 12/03/2024 17:07:28 11/30/19 25 11/30/2024 CBC WITH DIFFE RENTI AL/PL ATELE T MCHC 31.9 g/dL 31.5-3 5.7 normal Not Available [facility] ([facility]) [address] [place], [address], 12/03/2024 17:07:28 11/30/19 25 11/30/2024 CBC WITH DIFFE RENTI AL/PL ATELE T RDW 16.6 % 11.7-1 5.4 above high normal Not Available [facility] ([facility]) [address] [facility], [place], [address], 12/03/2024 17:07:28 11/30/19 25 11/30/2024 CBC WITH DIFFE RENTI AL/PL ATELE T platelets 259 x10e3 /uL 150-45 0 normal Not Available [facility] ([facility]) [address] [place], [address], 12/03/2024 17:07:28 11/30/19 25 11/30/2024 CBC WITH DIFFE RENTI AL/PL ATELE T neutrophils 56 % not estab. normal Not Available [facility] ([facility]) [address] [place], [address], 12/03/2024 17:07:28 11/30/19 25 11/30/2024 CBC WITH DIFFE RENTI AL/PL ATELE T lymphs 32 % not estab. normal Not Available [facility] ([facility]) [address] [place], [address], 12/03/2024 17:07:28 11/30/19 25 11/30/2024 CBC WITH DIFFE RENTI AL/PL ATELE T monocytes 7 % not estab. normal Not Available [facility] ([facility]) [address] [place], [address], 12/03/2024 17:07:28 11/30/19 25 11/30/2024 CBC WITH DIFFE RENTI AL/PL ATELE T eos 3 % not estab. normal Not Available [facility] ([facility]) [address] [place], [address], 12/03/2024 17:07:28 11/30/19 25 11/30/2024 CBC WITH DIFFE RENTI AL/PL ATELE T basos 1 % not estab. normal Not Available [facility] ([facility]) [address] [place], [address], 12/03/2024 17:07:28 11/30/19 25 11/30/2024 CBC WITH DIFFE RENTI AL/PL ATELE T immature cells CONFIGURATION DEVELOPER Not Available [facility] ([facility]) [address] [place], [address], 12/03/2024 17:07:28 11/30/19 25 11/30/2024 CBC WITH DIFFE RENTI AL/PL ATELE T neutrophils (absolute) 6.1 x10e3 /uL 1.4-7. 0 normal Not Available [facility] ([facility]) [address] [place], [address], 12/03/2024 17:07:28 11/30/19 25 11/30/2024 CBC WITH DIFFE RENTI AL/PL ATELE T lymphs (absolute) 3.4 x10e3 /uL 0.7-3. 1 above high normal Not Available [facility] ([facility]) [address] [place], [address], 12/03/2024 17:07:28 11/30/19 25 11/30/2024 CBC WITH DIFFE RENTI AL/PL ATELE T monocytes(ab solute) 0.8 x10e3 /uL 0.1-0. 9 normal Not Available [facility] ([facility]) [address] [place], [address], 12/03/2024 17:07:28 11/30/19 25 11/30/2024 CBC WITH DIFFE RENTI AL/PL ATELE T eos (absolute) 0.3 x10e3 /uL 0.0-0. 4 normal Not Available [facility] ([facility]) [address] [facility], [place], [address], 12/03/2024 17:07:28 11/30/19 25 11/30/2024 CBC WITH DIFFE RENTI AL/PL ATELE T baso (absolute) 0.1 x10e3 /uL 0.0-0. 2 normal Not Available [facility] ([facility]) [address] [facility], [place], [address], 12/03/2024 17:07:28 11/30/19 25 11/30/2024 CBC WITH DIFFE RENTI AL/PL ATELE T immature granulocytes 1 % not estab. Not Available [facility] ([facility]) [address] [facility], [place], [address], 12/03/2024 17:07:28 11/30/19 25 11/30/2024 CBC WITH DIFFE RENTI AL/PL ATELE T immature grans (abs) 0.1 x10e3 /uL 0.0-0. 1 Not Available [facility] ([facility]) [address] [facility], [place], [address], 12/03/2024 17:07:28 11/30/19 25 11/30/2024 CBC WITH DIFFE RENTI AL/PL ATELE T NRBC CONFIGURATION DEVELOPER Not Available [facility] ([facility]) [address] [facility], [place], [address], 12/03/2024 17:07:28 11/30/19 25 11/30/2024 CBC WITH DIFFE RENTI AL/PL ATELE T hematology comments: CONFIGURATION DEVELOPER Not Available [facility] ([facility]) [address] [facility], [place], [address], 12/03/2024 17:07:28 11/30/19 25 11/30/2024 COMP. METAB OLIC PANEL (14) glucose 120 mg/dL 70-99 above high normal Not Available [facility] ([facility]) [address] [place], [address], 12/03/2024 17:07:29 11/30/19 25 11/30/2024 COMP. METAB OLIC PANEL (14) BUN 42 mg/dL 8-27 above high normal Not Available [facility] ([facility]) [address] [place], [address], 12/03/2024 17:07:29 11/30/19 25 11/30/2024 COMP. METAB OLIC PANEL (14) creatinine 1.85 mg/dL 0.57-1 .00 above high normal Not Available [facility] ([facility]) [address] [place], [address], 12/03/2024 17:07:29 11/30/19 25 11/30/2024 COMP. METAB OLIC PANEL (14) eGFR 28 mL/mi n/1.7 3 >59 below low normal Not Available [facility] ([facility]) [address] [place], [address], 12/03/2024 17:07:29 11/30/19 25 11/30/2024 COMP. METAB OLIC PANEL (14) BUN/creatini ne ratio 23 12-28 normal Not Available [facility] ([facility]) [address] [place], [address], 12/03/2024 17:07:29 11/30/19 25 11/30/2024 COMP. METAB OLIC PANEL (14) sodium 138 mmol/ L 134-14 4 normal Not Available [facility] ([facility]) [address] [place], [address], 12/03/2024 17:07:29 11/30/19 25 11/30/2024 COMP. METAB OLIC PANEL (14) potassium 4.5 mmol/ L 3.5-5. 2 normal Not Available [facility] ([facility]) [address] [place], [address], 12/03/2024 17:07:29 11/30/19 25 11/30/2024 COMP. METAB OLIC PANEL (14) chloride 100 mmol/ L 96-106 normal Not Available [facility] ([facility]) [address] [place], [address], 12/03/2024 17:07:29 11/30/19 25 11/30/2024 COMP. METAB OLIC PANEL (14) carbon dioxide, total 23 mmol/ L 20-29 normal Not Available [facility] ([facility]) [address] [place], [address], 12/03/2024 17:07:29 11/30/19 25 11/30/2024 COMP. METAB OLIC PANEL (14) calcium 9.0 mg/dL 8.7-10 .3 normal Not Available [facility] ([facility]) [address] [place], [address], 12/03/2024 17:07:29 11/30/19 25 11/30/2024 COMP. METAB OLIC PANEL (14) protein, total 6.5 g/dL 6.0-8. 5 normal Not Available [facility] ([facility]) [address] [place], [address], 12/03/2024 17:07:29 11/30/19 25 11/30/2024 COMP. METAB OLIC PANEL (14) albumin 4.0 g/dL 3.8-4. 8 normal Not Available [facility] ([facility]) [address] [place], [address], 12/03/2024 17:07:29 11/30/19 25 11/30/2024 COMP. METAB OLIC PANEL (14) globulin, total 2.5 g/dL 1.5-4. 5 Not Available [facility] ([facility]) [address] [place], [address], 12/03/2024 17:07:29 11/30/19 25 11/30/2024 COMP. METAB OLIC PANEL (14) bilirubin, total 0.2 mg/dL 0.0-1. 2 normal Not Available [facility] ([facility]) [address] [place], [address], 12/03/2024 17:07:29 11/30/19 25 11/30/2024 COMP. METAB OLIC PANEL (14) alkaline phosphatase 96 IU/L 44-121 normal Not Available [facility] ([facility]) [address] [place], [address], 12/03/2024 17:07:29 11/30/19 25 11/30/2024 COMP. METAB OLIC PANEL (14) AST (SGOT) 19 IU/L 0-40 normal Not Available [facility] ([facility]) [address] [place], [address], 12/03/2024 17:07:29 11/30/19 25 11/30/2024 COMP. METAB OLIC PANEL (14) ALT (SGPT) 18 IU/L 0-32 normal Not Available [facility] ([facility]) [address] [place], [address], 12/03/2024 17:07:29 11/30/19 25 11/30/2024 LIPID PANEL cholesterol, total 152 mg/dL 100-19 9 normal Not Available [facility] ([facility]) [address] [place], [address], 12/03/2024 17:07:29 11/30/19 25 11/30/2024 LIPID PANEL triglyceride s 348 mg/dL 0-149 above high normal Not Available [facility] ([facility]) [address] [place], [address], 12/03/2024 17:07:29 11/30/19 25 11/30/2024 LIPID PANEL HDL cholesterol 32 mg/dL >39 below low normal Not Available [facility] ([facility]) [address] [place], [address], 12/03/2024 17:07:29 11/30/19 25 11/30/2024 LIPID PANEL VLDL cholesterol sundar 55 mg/dL 5-40 above high normal Not Available [facility] ([facility]) [address] [place], [address], 12/03/2024 17:07:29 11/30/19 25 11/30/2024 LIPID PANEL LDL chol calc ([facility]) 65 mg/dL 0-99 Not Available [facility] ([facility]) [address] [place], [address], 12/03/2024 17:07:29 11/30/19 25 11/30/2024 LIPID PANEL LDL calc comment: CONFIGURATION DEVELOPER Not Available [facility] ([facility]) [address] [facility], [place], [address], 12/03/2024 17:07:29 11/30/19 25 11/30/2024 C-PEP TIDE, SERUM C-peptide, serum 2.7 NG/mL 1.1-4. 4 C-Pep tide refer ence inter feliz is for fasti ng patie nts. Not Available [facility] ([facility]) [address] [place], [address], 12/03/2024 17:07:30 11/30/19 25 11/30/2024 HEMOG LOBIN A1C hemoglobin A1C 8.9 % 4.8-5. 6 above high normal Predi abete s: 5.7 - 6.4 Diabe murali: >6.4 Glyce berta contr ol for adult s with diabe murali: <7.0 Not Available [facility] ([facility]) [address] [place], [address], 12/03/2024 17:07:31 11/30/19 25 11/30/2024 SEDIM ENTAT ION RATE- WESTE RGREN sedimentatio n rate-westerg stevenson 61 mm/HR 0-40 above high normal Not Available [facility] ([facility]) [address] [place], [address], 12/03/2024 17:07:31 11/30/19 25 11/30/2024 MAGNE SIUM magnesium 1.6 mg/dL 1.6-2. 3 normal Not Available [facility] ([facility]) [address] [place], [address], 12/03/2024 17:07:31 11/30/19 25 12/03/2024 URINE CULTU RE, ROUTI NE urine culture, routine Final report abnormal Not Available [facility] ([facility]) [address] [facility], [place], [address], 12/03/2024 17:07:32 11/30/19 25 12/03/2024 URINE CULTU RE, ROUTI NE result 1 COMMEN T abnormal Esche sherry a fergu sonii Multi -Drug Resis tant Organ ism Great er than 100,0 00 colon y formi ng units per mL Not Available [facility] ([facility]) [address] [place], [address], 12/03/2024 17:07:32 11/30/19 25 12/03/2024 URINE CULTU [...] Tetra cycli ne R Not Available [facility] ([facility]) [address] [facility], [place], [address], 12/03/2024 17:07:32 11/30/19 25 11/30/2024 C-TRAVIS CTIVE PROTE IN, QUANT C-reactive protein, quant 3 mg/L 0-10 normal Not Available [facility] ([facility]) [address] [facility], [place], [address], 12/03/2024 17:07:33 11/30/19 25 11/29/2024 urina lysis , dipst ick Color Dark Yellow Not Available [address], [address], 11/29/2024 13:29:00 11/30/19 25 11/29/2024 urina lysis , dipst ick Appearance Clear Not Available [address], [address], 11/29/2024 13:29:00 11/30/19 25 11/29/2024 urina lysis , dipst ick Glucose Negati ve Not Available [address], [address], 11/29/2024 13:29:00 11/30/19 25 11/29/2024 urina lysis , dipst ick Bilirubin Negati ve Not Available [address], [address], 11/29/2024 13:29:00 11/30/19 25 11/29/2024 urina lysis , dipst ick Ketone Negati ve Not Available [address], [address], 11/29/2024 13:29:00 11/30/19 25 11/29/2024 urina lysis , dipst ick Specific [place] 1.030 Not Available [address], [address], 11/29/2024 13:29:00 11/30/19 25 11/29/2024 urina lysis , dipst ick Blood Negati ve Not Available [address], [address], 11/29/2024 13:29:00 11/30/19 25 11/29/2024 urina lysis , dipst ick pH 5.5 Not Available [address], [address], 11/29/2024 13:29:00 11/30/19 25 11/29/2024 urina lysis , dipst ick Protein 300 Not Available [address], [address], 11/29/2024 13:29:00 11/30/19 25 11/29/2024 urina lysis , dipst ick Urobilinogen .2 Not Available [facility] [address], [address], 11/29/2024 13:29:00 11/30/19 25 11/29/2024 urina lysis , dipst ick Nitrite positi ve Not Available [address], [address], 11/29/2024 13:29:00 11/30/19 25 11/29/2024 urina lysis , dipst ick Leukocytes Trace Not Available [address], [address], 11/29/2024 13:29:00 12/10/19 25 12/10/2024 CBC WITH DIFFE RENTI AL/PL ATELE T WBC 12.4 x10e3 /uL 3.4-10 .8 above high normal Not Available [facility] ([facility]) [address] [place], [address], 12/10/2024 04:06:40 12/10/19 25 12/10/2024 CBC WITH DIFFE RENTI AL/PL ATELE T RBC 5.07 x10e6 /uL 3.77-5 .28 normal Not Available [facility] ([facility]) [address] [place], [address], 12/10/2024 04:06:40 12/10/1912/10/2024 CBC WITH DIFFE RENTI AL/PL ATELE T hemoglobin 14.9 g/dL 11.1-1 5.9 normal Not Available [facility] ([facility]) [address] [place], [address], 12/10/2024 04:06:40 12/10/1912/10/2024 CBC WITH DIFFE RENTI AL/PL ATELE T hematocrit 46.5 % 34.0-4 6.6 normal Not Available [facility] ([facility]) [address] [place], [address], 12/10/2024 04:06:40 12/10/1912/10/2024 CBC WITH DIFFE RENTI AL/PL ATELE T MCV 92 fL 79-97 normal Not Available [facility] ([facility]) [address] [place], [address], 12/10/2024 04:06:40 12/10/19 25 12/10/2024 CBC WITH DIFFE RENTI AL/PL ATELE T MCH 29.4 pg 26.6-3 3.0 normal Not Available [facility] ([facility]) [address] [place], [address], 12/10/2024 04:06:40 12/10/19 25 12/10/2024 CBC WITH DIFFE RENTI AL/PL ATELE T MCHC 32.0 g/dL 31.5-3 5.7 normal Not Available [facility] ([facility]) [address] [facility], [place], [address], 12/10/2024 04:06:40 12/10/19 25 12/10/2024 CBC WITH DIFFE RENTI AL/PL ATELE T RDW 16.4 % 11.7-1 5.4 above high normal Not Available [facility] ([facility]) [address] [facility], [place], [address], 12/10/2024 04:06:40 12/10/19 25 12/10/2024 CBC WITH DIFFE RENTI AL/PL ATELE T platelets 249 x10e3 /uL 150-45 0 normal Not Available [facility] ([facility]) [address] [facility], [place], [address], 12/10/2024 04:06:40 12/10/19 25 12/10/2024 CBC WITH DIFFE RENTI AL/PL ATELE T neutrophils 68 % not estab. normal Not Available [facility] ([facility]) [address] [facility], [place], [address], 12/10/2024 04:06:40 12/10/19 25 12/10/2024 CBC WITH DIFFE RENTI AL/PL ATELE T lymphs 22 % not estab. normal Not Available [facility] ([facility]) [address] [facility], [place], [address], 12/10/2024 04:06:40 12/10/19 25 12/10/2024 CBC WITH DIFFE RENTI AL/PL ATELE T monocytes 6 % not estab. normal Not Available [facility] ([facility]) [address] [facility], [place], [address], 12/10/2024 04:06:40 12/10/19 25 12/10/2024 CBC WITH DIFFE RENTI AL/PL ATELE T eos 3 % not estab. normal Not Available [facility] ([facility]) [address] [facility], [place], [address], 12/10/2024 04:06:40 12/10/19 25 12/10/2024 CBC WITH DIFFE RENTI AL/PL ATELE T basos 0 % not estab. normal Not Available [facility] ([facility]) [address] [facility], [place], [address], 12/10/2024 04:06:40 12/10/19 25 12/10/2024 CBC WITH DIFFE RENTI AL/PL ATELE T immature cells CONFIGURATION DEVELOPER Not Available [facility] ([facility]) [address] [facility], [place], [address], 12/10/2024 04:06:40 12/10/19 25 12/10/2024 CBC WITH DIFFE RENTI AL/PL ATELE T neutrophils (absolute) 8.5 x10e3 /uL 1.4-7. 0 above high normal Not Available [facility] ([facility]) [address] [place], [address], 12/10/2024 04:06:40 12/10/19 25 12/10/2024 CBC WITH DIFFE RENTI AL/PL ATELE T lymphs (absolute) 2.8 x10e3 /uL 0.7-3. 1 normal Not Available [facility] ([facility]) [address] [place], [address], 12/10/2024 04:06:40 12/10/19 25 12/10/2024 CBC WITH DIFFE RENTI AL/PL ATELE T monocytes(ab solute) 0.7 x10e3 /uL 0.1-0. 9 normal Not Available [facility] ([facility]) [address] [place], [address], 12/10/2024 04:06:40 12/10/19 25 12/10/2024 CBC WITH DIFFE RENTI AL/PL ATELE T eos (absolute) 0.3 x10e3 /uL 0.0-0. 4 normal Not Available [facility] ([facility]) [address] [facility], [place], [address], 12/10/2024 04:06:40 12/10/19 25 12/10/2024 CBC WITH DIFFE RENTI AL/PL ATELE T baso (absolute) 0.1 x10e3 /uL 0.0-0. 2 normal Not Available [facility] ([facility]) [address] [facility], [place], [address], 12/10/2024 04:06:40 12/10/19 25 12/10/2024 CBC WITH DIFFE RENTI AL/PL ATELE T immature granulocytes 1 % not estab. Not Available [facility] ([facility]) [address] [place], [address], 12/10/2024 04:06:40 12/10/19 25 12/10/2024 CBC WITH DIFFE RENTI AL/PL ATELE T immature grans (abs) 0.1 x10e3 /uL 0.0-0. 1 Not Available [facility] ([facility]) [address] [place], [address], 12/10/2024 04:06:40 12/10/19 25 12/10/2024 CBC WITH DIFFE RENTI AL/PL ATELE T NRBC CONFIGURATION DEVELOPER Not Available [facility] ([facility]) [address] [place], [address], 12/10/2024 04:06:40 12/10/19 25 12/10/2024 CBC WITH DIFFE RENTI AL/PL ATELE T hematology comments: CONFIGURATION DEVELOPER Not Available [facility] ([facility]) [address] [place], [address], 12/10/2024 04:06:40 12/10/19 25 12/10/2024 COMP. METAB OLIC PANEL (14) glucose 254 mg/dL 70-99 above high normal Not Available [facility] ([facility]) [address] [place], [address], 12/10/2024 04:06:40 12/10/19 25 12/10/2024 COMP. METAB OLIC PANEL (14) BUN 61 mg/dL 8-27 above high normal Not Available [facility] ([facility]) [address] [place], [address], 12/10/2024 04:06:40 12/10/19 25 12/10/2024 COMP. METAB OLIC PANEL (14) creatinine 2.30 mg/dL 0.57-1 .00 above high normal Not Available [facility] ([facility]) [address] [place], [address], 12/10/2024 04:06:40 12/10/19 25 12/10/2024 COMP. METAB OLIC PANEL (14) eGFR 22 mL/mi n/1.7 3 >59 below low normal Not Available [facility] ([facility]) [address] [place], [address], 12/10/2024 04:06:40 12/10/19 25 12/10/2024 COMP. METAB OLIC PANEL (14) BUN/creatini ne ratio 27 12-28 normal Not Available [facility] ([facility]) [address] [place], [address], 12/10/2024 04:06:40 12/10/19 25 12/10/2024 COMP. METAB OLIC PANEL (14) sodium 133 mmol/ L 134-14 4 below low normal Not Available [facility] ([facility]) [address] [place], [address], 12/10/2024 04:06:40 12/10/19 25 12/10/2024 COMP. METAB OLIC PANEL (14) potassium 4.8 mmol/ L 3.5-5. 2 normal Not Available [facility] ([facility]) [address] [place], [address], 12/10/2024 04:06:40 12/10/19 25 12/10/2024 COMP. METAB OLIC PANEL (14) chloride 96 mmol/ L 96-106 normal Not Available [facility] ([facility]) [address] [place], [address], 12/10/2024 04:06:40 12/10/19 25 12/10/2024 COMP. METAB OLIC PANEL (14) carbon dioxide, total 21 mmol/ L 20-29 normal Not Available [facility] ([facility]) [address] [place], [address], 12/10/2024 04:06:40 12/10/19 25 12/10/2024 COMP. METAB OLIC PANEL (14) calcium 8.7 mg/dL 8.7-10 .3 normal Not Available [facility] ([facility]) [address] [place], [address], 12/10/2024 04:06:40 12/10/19 25 12/10/2024 COMP. METAB OLIC PANEL (14) protein, total 6.6 g/dL 6.0-8. 5 normal Not Available [facility] ([facility]) [address] [place], [address], 12/10/2024 04:06:40 12/10/19 25 12/10/2024 COMP. METAB OLIC PANEL (14) albumin 4.0 g/dL 3.8-4. 8 normal Not Available [facility] ([facility]) [address] [place], [id number], 12/10/2024 04:06:40 12/10/19 25 12/10/2024 COMP. METAB OLIC PANEL (14) globulin, total 2.6 g/dL 1.5-4. 5 Not Available [facility] ([facility]) [address] [facility], [place], [address], 12/10/2024 04:06:40 12/10/19 25 12/10/2024 COMP. METAB OLIC PANEL (14) bilirubin, total 0.3 mg/dL 0.0-1. 2 normal Not Available [facility] ([facility]) [address] [place], [address], 12/10/2024 04:06:40 12/10/19 25 12/10/2024 COMP. METAB OLIC PANEL (14) alkaline phosphatase 91 IU/L 44-121 normal Not Available [facility] ([facility]) [address] [place], [address], 12/10/2024 04:06:40 12/10/19 25 12/10/2024 COMP. METAB OLIC PANEL (14) AST (SGOT) 15 IU/L 0-40 normal Not Available [facility] ([facility]) [address] [facility], [place], [address], 12/10/2024 04:06:40 12/10/19 25 12/10/2024 COMP. METAB OLIC PANEL (14) ALT (SGPT) 20 IU/L 0-32 normal Not Available [facility] ([facility]) [address] [place], [address], 12/10/2024 04:06:40 02/12/20 25 02/11/2025 urina lysis , dipst ick Leukocytes Negati ve Not Available [facility] [address] [place], [address], 02/04/2025 09:05:09 02/12/20 25 02/11/2025 urina lysis , dipst ick Nitrite negati ve Not Available [facility] [address] [place], [address], 02/04/2025 09:05:09 02/12/20 25 02/11/2025 urina lysis , dipst ick Urobilinogen .2 Not Available [facility] [address] [place], [address], 02/04/2025 09:05:09 02/12/20 25 02/11/2025 urina lysis , dipst ick Protein 100 Not Available [facility] [address] [place], [address], 02/04/2025 09:05:09 02/12/20 25 02/11/2025 urina lysis , dipst ick pH 6.0 Not Available [facility] [address] [place], [address], 02/04/2025 09:05:09 02/12/20 25 02/11/2025 urina lysis , dipst ick Blood Negati ve Not Available [facility] [address] [place], [address], 02/04/2025 09:05:09 02/12/20 25 02/11/2025 urina lysis , dipst ick Specific M[place]opy 1.020 Not Available [facility] [address] [place], [address], 02/04/2025 09:05:09 02/12/20 25 02/11/2025 urina lysis , dipst ick Ketone Negati ve Not Available [facility] [address] [place], [address], 02/04/2025 09:05:09 02/12/20 25 02/11/2025 urina lysis , dipst ick Bilirubin Negati ve Not Available [facility] [address] [place], [address], 02/04/2025 09:05:09 02/12/20 25 02/11/2025 urina lysis , dipst ick Glucose Negati ve Not Available [facility] [address] [place], [address], 02/04/2025 09:05:09 02/12/20 25 02/11/2025 urina lysis , dipst ick Appearance Clear Not Available [facility] [address] [place], [address], 02/04/2025 09:05:09 02/12/20 25 02/11/2025 urina lysis , dipst ick Color Yellow Not Available [facility] [address] [place], [address], 02/04/2025 09:05:09 11/20/19 25 11/19/2024 elect rocar diogr am No observ ation record ed. [email or web address], [address], 11/19/2024 16:58:35 11/20/19 25 11/19/2024 elect rocar diogr am No observ ation record ed. [place] [id number], [place], [address], 11/22/2024 09:08:29 11/23/19 25 11/19/2024 elect rocar diogr am No observ ation record ed. [email or web address], [address], 11/23/2024 16:34:11 11/23/19 25 11/22/2024 XR, foot, 3 or more view No observ [facility]ion [facility] [address], [place], [address], 11/23/2024 18:15:43 11/30/19 25 11/19/2024 cardi ac monit or No observ ation record ed. [facility] [address], [place], [address], 11/30/2024 10:43:31 12/29/19 25 12/28/2024 ankle brach ial index No observ ation record ed. [facility] [address], [place], [address], 12/28/2024 13:56:53 02/01/20 25 01/28/2025 US, doppl er echoc ardio gram, w/ color flow No observ ation record ed. [facility] [employer] [address] [facility] [place], [address], 02/01/2025 08:13:35 02/09/2002/08/2025 XR, foot, 3 or more view No observ ation record ed. [facility] [address], [place], [address], 02/08/2025 15:41:42 02/23/20 25 01/28/2025 US, doppl er echoc ardio gram, w/ color flow No observ ation record ed. [facility] [place] [employer] [address] [facility], [place], [address], 02/22/2025 16:21:35 03/01/2003/01/2025 CT, angio gram, head, w/ contr ast No observ ation record ed. [facility] [address], [place], [address], 03/01/2025 14:03:28 03/01/20 25 03/01/2025 CT, head + brain , w/o contr ast No observ ation record ed. [facility] [address], [place], [address], 03/01/2025 14:03:28 03/01/20 25 03/01/2025 XR, chest , 2 view No observ ation record ed. [facility] [address], [place], [address], 03/01/2025 14:24:36 03/01/20 25 03/01/2025 CT, angio gram, neck, w/ contr ast No observ ation record ed. [facility] [address], [place], [address], 03/01/2025 14:24:16 03/02/20 25 02/04/2025 NM, myoca rdial perfu mychal scan, w/ stres s No observ ation record ed. [facility] [employer] [address] [facility], [place], [address], 03/04/2025 13:22:20 03/03/20 25 03/01/2025 elect mary anne alfarogr am No observ ation record ed. [facility] [address], [place], [address], 03/04/2025 13:22:20 04/14/20 25 04/12/2025 XR, foot, 3 or more view No observ ation record ed. [facility] [address], [place], [address], 04/15/2025 08:14:32 Result Notes None recorded. Problems Name Problem SNOMED Code Status Onset Date Resolution Date Notes Provider Name and Address Organization Details Recorded Time Chronic kidney disease stage 3B 904028771 Active Fina perales [place] - [facility] 5 11:42:05 Type 2 diabetes mellitus 41247165 Active 2021 Dylan Lebron APRN [address], [place], [address] , [facility] - [facility] 2 10:07:29 Hypertensive disorder 10867327 Active 2021 Dylan Lebron APRN [address], [place], [address] , [place] - [facility] 2 10:07:09 Hypercholeste rolemia 62827383 Active 2021 Dylan Lebron APRN [address], [place], [address] , [place] - [facility] 2 10:07:05 Gastroesophag eal reflux disease 013373353 Active 2021 Dylan Lebron APRN [address], [place], [address] , [place] - [facility] 2 10:06:49 Hypothyroidis m 48240010 Active 2021 Dylan Lebron APRN [address], [place], [address] , [place] - [facility] 2 10:07:12 Neuropathy 302041994 Active 2021 Dylan Lebron APRN [address], [place], [address] , [place] - [facility] 2 10:07:19 Arthritis 7756779 Active 2021 Dylan Lebron APRN [address], [place], [address] , [place] - [facility] 2 10:06:47 Coronary arteriosclero sis 23712125 Active 2021 Dylan Lebron APRN [address], [place], [address] , [place] - [facility] 2 10:18:21 Coronary artery bypass grafts x 3 Active 2021 Dylan Lebron [employer] [address], [place], [address] , [place] - [facility] 2 10:18:34 Problem Notes None recorded. Procedures Surgical History Date Name Laterality Status Provider Name and Address Organization Details Recorded Time 025 Medication Reconcilliation completed Fina Vasquez [place] - [facility] 11/29/2024 13:05:51 025 Advance Care Planning completed Fina Vasquez [place] - [facility] 11/19/2024 10:41:02 025 IV Infusion completed Fina Vasquez [place] - [facility] 11/19/2024 15:44:19 025 Functional Status Assessed completed Fina Vasquez [place] - [facility] 11/19/2024 10:41:02 024 Date of Last Colonoscopy completed Dia Leivas [place] - [facility] 2024 13:27:50 024 Medication Reconcilliation completed Fina Vasquez [place] - [facility] 12/02/2023 10:36:18 023 In and Out Catheterization completed Margarita Banks, [employer]LOORING MECH[employer]IC [address], [place], [address] [place] - [facility] 02/13/2023 14:34:26 023 Medication Reconcilliation completed Finaradha Vasquez [place] - [facility] 01/31/2023 10:55:15 023 Medication Reconcilliation completed Finaradha Vasquez [place] - [facility] 01/06/2023 10:21:27 023 Medication Reconcilliation completed Fina Vasquez [place] - [facility] 12/12/2022 10:55:58 023 Medication Reconcilliation completed Fina Vasquez [place] - [facility] 11/25/2022 14:44:11 023 Date of Last Mammogram completed Dia Leivas [place] - [facility] 10/17/2022 13:02:19 023 Most Recent Mammogram completed Dia Calis [place] - [facility] 10/17/2022 13:02:44 023 Back [...] Name and Address Organization Details Recorded Time 705611 lisinopri l medicatio n rash Not available high 12/17/2021 90194 RxNorm Fina Vasquez [place], [place] - [facility] 2 10:17:08 113534 Oxycontin medicatio n hallucina tions moderate high 12/17/2021 10559 6 RxNorm Fina Vas[place] - [facility] 2 10:18:04 474575 codeine medicatio n rash moderate high 12/17/2021 2670 RxNorm Fina Vas[place] - [facility] 2 10:16:43 441772 acetamino phen / oxycodone medicatio n hallucina tions severe high 12/17/2021 51674 3 RxNorm Fina Vasquez [place] - [facility] 2 10:17:43 410335 cephalexi n medicatio n eye swelling Not available low 11/11/2022 2231 RxNorm Fina Vasquez [place] - [facility] 3 12:54:33 310605 Macrobid medicatio n diarrhea moderate high 01/13/2023 35413 1 RxNorm vomit ing and diarr hea [...] Not Available Not Available Not Available [facility] 3 mL 08/22 completed Not Available Not [...] Updated DateTime 5 151.13 cm 27.6 kg/m2 61672.3 4 g 98 [degF] 87 /min 95 % 95 % 18 /min 0 118/64 mm[Hg] Fina Vasquez [facility] 5 13:17:29 Date Recorded Body height Respiratory rate Oxygen saturation Oxygen saturation in Arterial blood by Pulse oximetry Systolic And Diastolic Provider Name and Address Organization Details Last Updated DateTime 5 151.13 cm 18 /min 95 % 95 % 180/95 mm[Hg] Fina Pedro [facility] 5 11:25:30 Date Recorded Body height Body mass index (BMI) Body weight Heart rate Oxygen saturation Oxygen saturation in Arterial blood by Pulse oximetry Respiratory rate Pain severity - 0-10 verbal numeric rating [Score] - Reported Body temperature Systolic And Diastolic Provider Name and Address Organization Details Last Updated DateTime 5 151.13 cm 27.1 kg/m2 96330.6 6 g 100 /min 93 % 93 % 18 /min 0 98.1 [degF] 140/82 mm[Hg] [facility] 5 09:15:11 Date Recorded Body height Body mass index (BMI) Body weight Heart rate Oxygen saturation Oxygen saturation in Arterial blood by Pulse oximetry Respiratory rate Pain severity - 0-10 verbal numeric rating [Score] - Reported Systolic And Diastolic Provider Name and Address Organization Details Last Updated DateTime 5 151.13 cm 27 kg/m2 34183.5 6 g 95 /min 96 % 96 % 18 /min 0 138/84 mm[Hg] Xiomara Cai [facility] [place] 5 13:15:06 Date Recorded Body height Body mass index (BMI) Body weight Body temperature Heart rate Oxygen saturation Oxygen saturation in Arterial blood by Pulse oximetry Respiratory rate Pain severity - 0-10 verbal numeric rating [Score] - Reported Systolic And Diastolic Provider Name and Address Organization Details Last Updated DateTime 5 151.13 cm 26.8 kg/m2 09612.9 7 g 97.6 [degF] 81 /min 95 [...] Or The Highest Degree You Have Received? [id number] Information not available 12/17/2021 Have There Been Any Changes To Your Family Or Social Situation? No Information no t available 07/14/2023 What Is The Fluoride Status Of Your Home? Unknown Information not available 07/14/2023 Have You Recently Or Are You Planning To Travel To An Area With Zika Virus? No Information not available 07/14/2023 Do You Have A Medical Power Of Manager Consumer Insights? No Information not available 07/14/2023 What Was [...] anxious, or unable to sleep at night)? [id number] Information not available 12/20/2021 Do you have [...] quadrivalent, PF 02/21/2022 completed Dylan Lebron, FLOORING MECH[employer]IC [address], [place], [address], [place] - [facility] 03/26/2022 17:30:58 Influenza, high-dose, quadrivalent, PF 04/25/2023 completed Fina Pedro null, [place] - [facility] 04/25/2023 13:24:26 Influenza, high-dose, trivalent, PF 02/24/2024 completed Fina [place] [facility] 03/11/2024 17:52:11 Influenza, high-dose, trivalent, PF 03/21/2025 completed Fina [place] [facility] 03/21/2025 13:00:39 COVID-19, mRNA, LNP-S, PF, 100 mcg/0.5mL dose or 50 mcg/0.25mL dose 08/02/2020 completed Fina [place] [facility] 08/22/2022 14:19:25 COVID-19, mRNA, LNP-S, PF, 100 mcg/0.5mL dose or 50 mcg/0.25mL dose 08/31/2020 completed Fina [place] [facility] 08/22/2022 14:19:25 COVID-19, mRNA, LNP-S, PF, 100 mcg/0.5mL dose or 50 mcg/0.25mL dose 04/11/2021 completed Fina [place] null, [place] - [facility] 08/22/2022 14:19:25 Tdap 04/20/2013 completed Fina [place] [facility] 08/22/2022 14:19:25 zoster live 04/20/2013 completed Fina [place] [facility] 08/22/2022 14:19:25 Influenza, high-dose, trivalent, PF 05/16/2021 completed Fina [place] [facility] 08/22/2022 14:19:25 Past Encounters Encounter ID Performer Location Encounter Start Date Encounter Closed Date Diagnosis/Indication Diagnosis SNOMED-CT Code Diagnosis ICD10 Code Diagnosis IMO Codes Diagnosis Note [id number] Dylan Lebron APRN [address] [address] 12/17/2021 08:46:07 12/17/2021 10:35:13 Diabetes mellitus 13819823 E11.9 Overall, pt doing well at this [...] questions or concerns arise. Urinary incontinence 165 117326 R32 pt wants to wait on referral wants to try meds first. if gfr wnl will start mybretriq Hypercholesterolemia 136 82650 E78.00 Hypertensive disorder 38 050621 I10 Hypothyroidism 72497456 E03.9 Neuropathy 464323113 G62 .9 on gabapentin Coronary arteriosclerosis 01512091 I25.10 follow up with cardiology as scheduled [id number] Dylan Lebron APRN [address] [address] 12/20/2021 14:52:20 12/20/2021 17:13:38 Type 2 diabetes mellitus 38338279 E11.21 Insulin pump present 450 351566 Z96.41 increased Education about insulin pump 8954441787 86626 Z46.81 current insulin pump settings:b maru rate 1.9 units/hr midnight to 8 am2.5 units/hr 8am to 12 pmtotal 58.2 units a daymax of 80 units a day adjustment s :basal rate 1.9 units/hr midnight to 8 am2.85 units/hr 8am to 12 pmtotal of 65.55 units in 24 hoursincre ase bolus to each meal and snack Acute urin nasra tract infection 850363104 N39.0 med sent [id number] Eugonda Fryman, [address] [address] 01/07/2022 13:15:54 01/07/2022 14:11:25 Acute urinary tract infection 593574517 N39.0 med sent Dizzy spells 444936696 R 42 [id number] Dylan Lebron [address] [address] 01/15/2022 14:53:00 01/15/2022 15:42:34 Acute urinary tract infection 541811056 N39.0 med sent, discussed with pharm antibiotic s based on culture, will reculture and sent referral to urology Pain of [facility] hip joint 2057134151 65233 M25.518 [id number] Dylan Lebron [address] [address] 01/24/2022 10:35:55 01/24/2022 11:11:42 Low back pain 641326459 M54.41 decadron 4mg given im, watch glucose close may need to adjust insulin dose for a few days [id number] [facility] [address] [address] 01/28/2022 14:54:09 01/28/2022 16:38:47 Neuropathy 740253958 G62.9 on gabapentin Low back pain 820359090 M54.41 [id number] Dylan Lebron [address] [address] 02/04/2022 10:17:23 02/04/2022 11:03:56 Low back pain 850778434 M54.41 Donald report obtained, reviewed, and made [...] 3 days or norco until mri resulted [id number] Dylan Lebron [address] [address] 02/21/2022 09:51:52 02/21/2022 11:03:15 Low back pain 547288915 M54.41 Donald report obtained, reviewed, and made [...] as csa on file Influenza vaccine needed 8994572086 106 Z23 [id number] Tonezion Lebron [address] [address] 08/22/2022 13:52:04 08/22/2022 15:02:08 Neuropathy 779248828 G62.9 Pt compliant with plan of careKasper reviewed and appropriat emedicatio n compliance discussedC ontrol substance agreement on fileuds next visit- pt has pain and difficulty getting on and off toilet Type 2 lexx betes mellitus 31475903 E11.21 labs next visit Hypertensive disorder 38 501608 I10 labs next visit Hypercholesterolemia 136 02363 E78.00 [id number] Dylan Lebron [address] [address] 11/08/2022 13:31:16 11/08/2022 14:44:29 Acute urinary tract infection 429951645 N39.0 increase fluids Candidiasis of vagina 72 597986 B37.31 [id number] Tonezion Lebron [address] [address] 11/19/2022 14:48:02 11/19/2022 15:38:27 Acute confusion 662631382 R41.0 sent to ed for eval- report to K Dariusz RN Abnormal g ait due to muscle weakness 108301351 M62.81 Unsteady when walking 22 391338 R26.89 Abnormal vision 1800413 H54.7 Disorder o f eye movements 42685451 H55.89 [id number] Dylan Lebron [address] [address] 11/25/2022 14:33:30 11/25/2022 15:58:01 Headache 69029458 R51.9 discussed with [place] at dr do office and recommende d going back to ed for eval. pt sent to [facility] for eval report called to Marlin. Abnormal g ait due to muscle weakness 972918017 M62.81 [id number] Dylan Lebron [address] [address] 12/12/2022 10:35:13 12/12/2022 11:44:04 Hypercholesterolemia 51003545 E78.00 Hypertensive disorder 38 867103 I10 Hypothyroidism 64414403 E03.9 Type 2 lexx betes mellitus 18875852 E11.21 Long-term current use of drug therapy 336534072 Z79.899 Long-term current use of insulin 587267784 Z79.4 Insulin pump present 450 529969 Z96.41 Abnormal g ait due to impairment of balance 992025521 R26.89 Hyperkalemia 73624231 E8 7.5 Neuropathy 997417041 G62 .9 [facility] with [facility] and appropriat emedicatio n [facility] on fileuds :12/12/22 [id number] Dylan Lebron FLOORING MECH[employer]IC [address] [address] 01/06/2023 10:15:58 01/06/2023 11:25:08 Acute urinary tract infection 542439902 N39.0 increase fluids Candidiasis of skin 4988 3006 B37.2 Fatigue 42706778 R53.83 Cobalamin deficiency 190 550119 E53.8 [id number] Dylan Lebron [address] [address] 01/13/2023 09:55:30 01/13/2023 10:48:55 Acute urinary tract infection 784031803 N39.0 increase fluidsspok e with dr grajeda will send to [facility] for eval and treatment Low blood pressure 13802 003 I95.9 Abnormal g ait due to muscle weakness 915442119 M62.81 [id number] Dylan Lebron [address] [address] 01/31/2023 10:32:52 01/31/2023 11:32:09 Hypercholesterolemia 39664869 E78.00 History of urinary tract infection 8022901862 107 Z87.440 Muscle weakness 43555074 M62.81 Acute urin nasra tract infection 719612606 N39.0 increase fluidsurol ogy consultcx Hyperglyce sera due to type 2 diabetes mellitus 6162004251 51100 E11.65 Hypoglycemia 367594121 E 16.2 pt would benefit from omnipod 5 and dexcom 6- this could prevent hyper and hypoglycem ia episodes [id number] Margarita Banks [facility] [address] [place] [address] 02/04/2023 14:22:54 02/04/2023 15:54:28 Hypertensive disorder 26378523 I10 Type 2 lexx betes mellitus 18105693 E11.21 Coronary arteriosclerosis 26012610 I25.10 Chronic ki dney disease stage 4 132032468 N18.4 Recurrent urinary tract infection 922937635 N39.0 -continue estradiol VC. Hydronephrosis 36502634 N13.30 Patient la dical record not available 874746056 Z76.89 Mixed urin nasra incontinence 255002588 N39.46 Acute urin nasra tract infection 793749810 N39.0 [id number] [facility] [address] [place] [address] 02/13/2023 13:31:33 02/13/2023 14:44:51 Recurrent urinary tract infection 434354748 N39.0 -continue estradiol VC. Hydronephrosis 30078544 N13.30 Chronic ki dney disease stage 4 169195559 N18.4 Hypertensive disorder 38 759777 I10 Type 2 lexx betes mellitus 52915955 E11.21 Coronary arteriosclerosis 59555192 I25.10 Mixed urin nasra incontinence 404770772 N39.46 [id number] [facility] [address] [place] [address] 03/06/2023 14:23:11 03/06/2023 15:44:51 Recurrent urinary tract infection 968135410 N39.0 -continue estradiol VC. Hydronephrosis 55973935 N13.30 Chronic ki dney disease stage 4 063115505 N18.4 Hypertensive disorder 38 860864 I10 Type 2 lexx betes mellitus 01326938 E11.21 Coronary arteriosclerosis 98221565 I25.10 Mixed urin nasra incontinence 932768086 N39.46 Acute urin nasra tract infection 369756507 N39.0 [id number] [facility] [address] [place] [address] 03/25/2023 13:36:38 03/25/2023 14:21:18 Recurrent urinary tract infection 962864606 N39.0 -continue estradiol VC. Hydronephrosis 49583095 N13.30 Chronic ki dney disease stage 4 727524608 N18.4 Hypertensive disorder 38 659234 I10 Type 2 lexx betes mellitus 51021415 E11.21 Coronary arteriosclerosis 66093477 I25.10 Mixed urin nasra incontinence 956036696 N39.46 Overactive urinary bladder 128756999 N32.81 -avoid anticholin ergics in this patient d/t potential patient harm. anticholin ergics interact with currently rx medication s and combo may incr. risk of TAKER OFF depression , psychomoto r impairment . Also pt is 72 years old, and anticholin ergics should be avoided d/t BEERS criteria.B eta 3 agonists are the safest alternativ e for this patient. [id number] [facility] [address] [place] [address] 05/06/2023 13:48:23 05/06/2023 14:45:17 Recurrent urinary tract infection 428821946 N39.0 -continue estradiol VC. Hydronephrosis 62181214 N13.30 Chronic ki dney disease stage 4 298147232 N18.4 Hypertensive disorder 38 291940 I10 Type 2 lexx betes mellitus 15565278 E11.21 Coronary arteriosclerosis 34372599 I25.10 Mixed urin nasra incontinence 714940006 N39.46 Overactive urinary bladder 485799009 N32.81 -avoid anticholin ergics in this patient d/t potential patient harm. anticholin ergics interact with currently rx medication s and combo may incr. risk of TAKER OFF depression , psychomoto r impairment . Also pt is 72 years old, and anticholin ergics should be avoided d/t BEERS criteria.B eta 3 agonists are the safest alternativ e for this patient. -PFPT- unable to travel. she does not have a PFPT provider within a [address] from her home.-fail ed bladder training. Acute urin nasra tract infection 433558929 N39.0 [id number] Dylan Lebron APRN [address] [address] 04/03/2023 10:54:18 04/03/2023 12:24:14 Neuropathy 012059905 G62.9 Pt compliant with plan of careKasper reviewed and appropriat emedicatio n compliance discussedC ontrol substance agreement on file Long-term drug therapy 955107529 Z79.899 Coronary arteriosclerosis 52027626 I25.10 follow up with cardiology as scheduled Hypercholesterolemia 136 81130 E78.00 Hypertensive disorder 38 906170 I10 Hypothyroidism 62086294 E03.9 Type 2 lexx betes mellitus 62014055 E11.21 due to hypoglycem ia and her having to treat lows she would benefit from the dexcom g6 and omnipod 5 to mange her lows better. pt is scared of hypoglycem ia so at 100 she is treating low with glucose tablets. pt has been hospitaliz ed due to lows. Hypoglycemia 824378411 E 16.2 pt would benefit from omnipod 5 and dexcom 6- this could prevent hyper and hypoglycem ia episodes [id number] Dylan Lebron APRN [address] [place] [address] 04/25/2023 08:48:34 04/25/2023 10:09:13 Influenza vaccine needed 8110305098 106 Z23 Arthritis 7557221 M19.90 Coronary arteriosclerosis 87703828 I25.10 follow up with cardiology as scheduled Gastroesop hageal reflux disease 742822254 K21.9 Hypercholesterolemia 136 45737 E78.00 Hypertensive disorder 38 753797 I10 Hypothyroidism 05185021 E03.9 Neuropathy 698402851 G62 .9 Pt compliant with plan of careKasper reviewed and appropriat emedicatio n compliance discussedC ontrol substance agreement on file Type 2 lexx betes mellitus 64826585 E11.21 due to hypoglycem ia and her having to treat lows she would benefit from the dexcom g6 and omnipod 5 to mange her lows better. pt is scared of hypoglycem ia so at 100 she is treating low with glucose tablets. pt has been hospitaliz ed due to lows. Acute urin nasra tract infection 294159794 N39.0 increase fluidsurol ogy consultcx [id number] [facility] [address] [place] [address] 06/05/2023 10:06:54 06/05/2023 11:17:33 Recurrent urinary tract infection 186424333 N39.0 -continue estradiol VC. Hydronephrosis 98863361 N13.30 Chronic ki dney disease stage 4 115619092 N18.4 Hypertensive disorder 38 406865 I10 Type 2 lexx betes mellitus 90080157 E11.21 Coronary arteriosclerosis 65671150 I25.10 Mixed urin nasra incontinence 012086221 N39.46 Overactive urinary bladder 881932708 N32.81 -avoid anticholin ergics in this patient d/t potential patient harm. anticholin ergics interact with currently rx medication s and combo may incr. risk of TAKER OFF depression , psychomoto r impairment . Also pt is 72 years old, and anticholin ergics should be avoided d/t BEERS criteria.B eta 3 agonists are the safest alternativ e for this patient. -PFPT- unable to travel. she does not have a PFPT provider within a [address] from her home.-fail ed bladder training. Candidiasis of vagina 72 358112 B37.31 reported per pt with abx tx. [id number] Dylan Lebron APRN [address] [address] 05/23/2023 13:24:23 05/23/2023 14:10:28 History of urinary tract infection 2876474664 107 Z87.440 Increased frequency of urination 544902474 R35.0 Acute back pain with sciatica 479612807 M54.41 monitor glucose close [id number] Margarita Banks [facility] [address] [place] [address] 07/10/2023 11:09:05 07/10/2023 11:36:55 Recurrent urinary tract infection 410598194 N39.0 -continue estradiol VC. Hydronephrosis 22487774 N13.30 Chronic ki dney disease stage 4 068871300 N18.4 Hypertensive disorder 38 495672 I10 Type 2 lexx betes mellitus 16766176 E11.21 Coronary arteriosclerosis 50741760 I25.10 Mixed urin nasra incontinence 887186523 N39.46 Overactive urinary bladder 290943195 N32.81 -avoid anticholin ergics in this patient d/t potential patient harm. anticholin ergics interact with currently rx medication s and combo may incr. risk of TAKER OFF depression , psychomoto r impairment . Also pt is 72 years old, and anticholin ergics should be avoided d/t BEERS criteria.B eta 3 agonists are the safest alternativ e for this patient. -PFPT- unable to travel. she does not have a PFPT provider within a [address] from her home.-fail ed bladder training. [id number] Dylan Lebron APRN [address] [address] 07/01/2023 14:51:59 07/01/2023 16:21:06 Arthritis 9144923 M19.90 Neuropathy 334203436 G62 .9 Pt compliant with plan of careKasper reviewed and appropriat emedicatio n compliance discussedC ontrol substance agreement on fileuds: History of urinary tract infection 4520453325 107 Z87.440 Pain of ri ght hip joint 4812944718 47881 M25.551 steroids if no improvemen t will order xrays Pain of ri ght ankle joint 1097245300 7693088 M25.571 Chronic ki dney disease 002023347 N18.9 Middle ear effusion 1004 409199 H74.8X9 steroidsmo nitor glucose close [id number] [facility] 1 [place] [address] 08/20/2023 09:32:55 08/20/2023 10:07:07 Recurrent urinary tract infection N39.0 -continue estradiol VC. Hydronephrosis 55420452 N13.30 Chronic ki dney disease stage 4 832477100 N18.4 Hypertensive disorder 38 480059 I10 Type 2 lexx betes mellitus 97039313 E11.21 Coronary arteriosclerosis 26685782 I25.10 Mixed urin nasra incontinence 498025803 N39.46 Overactive urinary bladder 332300815 N32.81 -avoid anticholin ergics in this patient d/t potential patient harm. anticholin ergics interact with currently rx medication s and combo may incr. risk of TAKER OFF depression , psychomoto r impairment . Also pt is 72 years old, and anticholin ergics should be avoided d/t BEERS criteria.B eta 3 agonists are the safest alternativ e for this patient. -PFPT- unable to travel. she does not have a PFPT provider within a [address] from her home.-fail ed bladder training. [id number] [facility] 1 [place] [address] 10/01/2023 10:33:52 10/01/2023 11:15:46 Recurrent urinary tract infection N39.0 -continue estradiol VC. Hydronephrosis 54861415 N13.30 Chronic ki dney disease stage 4 967809413 N18.4 Hypertensive disorder 38 438606 I10 Type 2 lexx betes mellitus 36905680 E11.21 Coronary arteriosclerosis 69091787 I25.10 Mixed urin nasra incontinence 785423194 N39.46 Overactive urinary bladder 939569045 N32.81 -avoid anticholin ergics in this patient d/t potential patient harm. anticholin ergics interact with currently rx medication s and combo may incr. risk of TAKER OFF depression , psychomoto r impairment . Also pt is 72 years old, and anticholin ergics should be avoided d/t BEERS criteria.B eta 3 agonists are the safest alternativ e for this patient. -PFPT- unable to travel. she does not have a PFPT provider within a [address] from her home.-fail ed bladder training. [id number] [facility] 1 [place] [address] 11/12/2023 10:37:57 11/12/2023 11:26:49 Recurrent urinary tract infection N39.0 -continue estradiol VC. Hydronephrosis 01831039 N13.30 Chronic ki dney disease stage 4 136934797 N18.4 Hypertensive disorder 38 578480 I10 Type 2 lexx betes mellitus 78402184 E11.21 Coronary arteriosclerosis 08535677 I25.10 Mixed urin nasra incontinence 651543516 N39.46 Overactive urinary bladder 088280859 N32.81 -avoid anticholin ergics in this patient d/t potential patient harm. anticholin ergics interact with currently rx medication s and combo may incr. risk of TAKER OFF depression , psychomoto r impairment . Also pt is 72 years old, and anticholin ergics should be avoided d/t BEERS criteria.B eta 3 agonists are the safest alternativ e for this patient. -PFPT- unable to travel. she does not have a PFPT provider within a [address] from her home.-fail ed bladder training. [id number] [facility] 1 [place] [address] 12/31/2023 10:10:39 12/31/2023 10:57:14 Recurrent urinary tract infection 317283525 N39.0 -continue estradiol VC. Hydronephrosis 70533381 N13.30 Chronic ki dney disease stage 4 918133136 N18.4 Hypertensive disorder 38 209820 I10 Type 2 lexx betes mellitus 46075057 E11.21 Coronary arteriosclerosis 71758566 I25.10 Mixed urin nasra incontinence 514150562 N39.46 Overactive urinary bladder 253902748 N32.81 -avoid anticholin ergics in this patient d/t potential patient harm. anticholin ergics interact with currently rx medication s and combo may incr. risk of TAKER OFF depression , psychomoto r impairment . Also pt is 72 years old, and anticholin ergics should be avoided d/t BEERS criteria.B eta 3 agonists are the safest alternativ e for this patient. -PFPT- unable to travel. she does not have a PFPT provider within a [address] from her home.-fail ed bladder training. Body mass index 25-29 - overweight 086013081 Z68.28 BMI 28.9 Overweight 881251874 E66 .3 Patient la dical record not available 890478992 Z76.89 [id number] Margarita [facility] 1 [place] [address] 11/27/2023 09:40:33 11/27/2023 10:21:23 Recurrent urinary tract infection 232029951 N39.0 -continue estradiol VC. Hydronephrosis 09678835 N13.30 Chronic ki dney disease stage 4 723183732 N18.4 Hypertensive disorder 38 468464 I10 Type 2 lexx betes mellitus 12644087 E11.21 Coronary arteriosclerosis 32499972 I25.10 Mixed urin nasra incontinence 843534798 N39.46 Overactive urinary bladder 849499262 N32.81 -avoid anticholin ergics in this patient d/t potential patient harm. anticholin ergics interact with currently rx medication s and combo may incr. risk of TAKER OFF depression , psychomoto r impairment . Also pt is 72 years old, and anticholin ergics should be avoided d/t BEERS criteria.B eta 3 agonists are the safest alternativ e for this patient. -PFPT- unable to travel. she does not have a PFPT provider within a [address] from her home.-fail ed bladder training. Candidiasis of mouth 797 41762 B37.0 Candidiasis of vagina 72 939221 B37.31 reported per pt with abx tx. Patient me dical record not available 249952879 Z76.89 [id number] Dylan Lebron APRN [address] [address] 12/02/2023 10:14:12 12/02/2023 11:50:08 Neuropathy 075592991 G62.9 Pt compliant with plan of careKasper reviewed and appropriat emedicatio n compliance discussedC ontrol substance agreement on fileuds: Syncope 241225279 R55 if episode happens go to ed Intermitte nt confusion 412222425 R41.0 referral to neuro Candidiasis of skin 4988 3006 B37.2 yogurt Candidiasis of mouth 797 98843 B37.0 [id number] Margarita Banks [facility] 1 [place] [address] 02/04/2024 11:12:56 02/04/2024 13:31:27 Recurrent urinary tract infection 841418195 N39.0 -continue estradiol VC. Hydronephrosis 09857728 N13.30 Chronic ki dney disease stage 4 009695484 N18.4 Hypertensive disorder 38 568563 I10 Type 2 lexx betes mellitus 23702565 E11.21 Coronary arteriosclerosis 97025145 I25.10 Mixed urin nasra incontinence 785305995 N39.46 Overactive urinary bladder 999978701 N32.81 -avoid anticholin ergics in this patient d/t potential patient harm. anticholin ergics interact with currently rx medication s and combo may incr. risk of TAKER OFF depression , psychomoto r impairment . Also pt is 72 years old, and anticholin ergics should be avoided d/t BEERS criteria.B eta 3 agonists are the safest alternativ e for this patient. -PFPT- unable to travel. she does not have a PFPT provider within a [address] from her home.-fail ed bladder training. Body mass index 25-29 - overweight 805485716 Z68.28 BMI 28.9 Overweight 952333015 E66 .3 Acute urin nasra tract infection 749270230 N39.0 [id number] Margarita Banks [facility] [address] [place] [address] 03/24/2024 11:07:18 03/24/2024 11:59:47 Recurrent urinary tract infection 554341932 N39.0 -continue estradiol VC. Hydronephrosis 14232296 N13.30 Chronic ki dney disease stage 4 501587581 N18.4 Hypertensive disorder 38 544110 I10 Type 2 lexx betes mellitus 93998770 E11.21 Coronary arteriosclerosis 52071605 I25.10 Mixed urin nasra incontinence 151063781 N39.46 Overactive urinary bladder 633887725 N32.81 -avoid anticholin ergics in this patient d/t potential patient harm. anticholin ergics interact with currently rx medication s and combo may incr. risk of TAKER OFF depression , psychomoto r impairment . Also [...] legs. Body mass index 25-29 - overweight 573639653 Z68.28 BMI 28.9 Overweight 051124582 E66 .3 [id number] Dylan Lebron APRN [address] [address] 02/24/2024 10:32:52 02/24/2024 12:15:00 Type 2 diabetes mellitus 79048830 E11.21 labs Influenza vaccine needed 3293886620 106 Z23 Coronary arteriosclerosis 58035501 I25.10 follow up with cardiology as scheduled Hypercholesterolemia 136 18325 E78.00 labs Hypertensive disorder 38 753669 I10 labs Hypothyroidism 96422874 E03.9 labs Neuropathy 873717539 G62 .9 Pt compliant with plan of careDonald reviewed and appropriat emedicatio n compliance discussedC ontrol substance agreement on fileuds: Candidiasis of skin 4988 3006 B37.2 yogurt Long-term drug therapy 466446724 Z79.178 [id number] Dylan Lebron [employer] [address] [address] 03/08/2024 14:13:34 03/08/2024 15:45:05 Type 2 diabetes mellitus 29348299 E11.21 needs the omnipod 5 that works with dexcom 7 so the pump can adjust based on cgm, high risk for hyperglyce sera Low back pain 189420646 M54.41 seen xray and talked with pt- due to broken hardware i have asked they only work with pt on her gait and balance and informed pt of xray results so she would understand . [id number] [facility] [place] [address] 05/25/2024 11:21:29 05/25/2024 12:02:02 Recurrent urinary tract infection N39.0 -continue estradiol VC. Hydronephrosis 10112529 N13.30 Chronic ki dney disease stage 4 347172646 N18.4 Hypertensive disorder 38 172608 I10 Type 2 lexx betes mellitus 25024883 E11.21 Coronary arteriosclerosis 70168603 I25.10 Mixed urin nasra incontinence 211357143 N39.46 Overactive urinary bladder 812587534 N32.81 -avoid anticholin ergics in this patient d/t potential patient harm. anticholin ergics interact with currently rx medication s and combo may incr. risk of TAKER OFF depression , psychomoto r impairment . Also [...] legs. Body mass index 25-29 - overweight 166367003 Z68.28 BMI 28.9 Overweight 510296852 E66 .3 [id number] [facility] [place] [address] 08/24/2024 10:39:52 08/24/2024 11:30:09 Recurrent urinary tract infection N39.0 -continue estradiol VC. Overactive urinary bladder 206349037 N32.81 -avoid anticholin ergics in this patient d/t potential patient harm. anticholin ergics interact with currently rx medication s and combo may incr. risk of TAKER OFF depression , psychomoto r impairment . Also pt is 72 years old, and anticholin ergics should be avoided d/t BEERS criteria.B eta 3 agonists are the safest alternativ e for this patient. -PFPT- unable to travel. she does not have a PFPT provider within a [address] from her home.-fail ed bladder training. failed myrbetriq- caused swelling in legs. Hydronephrosis 01827887 N13.30 Chronic ki dney disease stage 4 961288496 N18.4 Hypertensive disorder 38 019567 I10 Type 2 lexx betes mellitus 06100870 E11.21 Coronary arteriosclerosis 15773461 I25.10 Mixed urin nasra incontinence 435034120 N39.46 Body mass index 25-29 - overweight 832634331 Z68.28 BMI 28.9 Overweight 741584602 E66 .3 [id number] Dylan Lebron APRN [address] [address] 2024 12:53:40 2024 14:27:55 Type 2 diabetes mellitus 27537894 E11.21 needs the omnipod 5 that works with dexcom 7 so the pump can adjust based on cgm, high risk for hyperglyce sera Hypertensive disorder 38 144242 I10 Hypercholesterolemia 136 23164 E78.00 Gastroesop hageal reflux disease 163144205 K21.9 Hypothyroidism 46397799 E03.9 Neuropathy 039392965 G62 .9 Pt compliant with plan of careKasper reviewed and appropriat emedicatio n compliance discussedC ontrol substance agreement on fileuds: Arthritis 6161873 M19.90 Coronary arteriosclerosis 58087597 I25.10 follow up with cardiology as scheduled Acute urin nasra tract infection 694882638 N39.0 increase fluidsurol ogy consultcx Abnormal g ait due to impairment of balance 136964307 R26.89 [id number] Dylan Lebron APRN [address] [place] [address] 07/19/2024 10:50:07 07/19/2024 12:07:19 Acute urinary tract infection 874580331 N39.0 increase fluidsurol ogy consultcx Type 2 lexx betes mellitus 65025819 E11.21 needs the omnipod 5 that works with dexcom 7 so the pump can adjust based on cgm, high risk for hyperglyce miacarb to insulin ratio changed and target range adjusted. Vertigo 887227724 R42 [id number] Margarita Banks [facility] [address] [place] [address] 10/08/2024 13:08:12 10/08/2024 14:14:05 Recurrent urinary tract infection 953937069 N39.0 -continue estradiol VC. Overactive urinary bladder 914902756 N32.81 -avoid anticholin ergics in this patient d/t potential patient harm. anticholin ergics interact with currently rx medication s and combo may incr. risk of TAKER OFF depression , psychomoto r impairment . Also [...] d gemtesa- caused swelling in legs. Hydronephrosis 68708071 N13.30 Chronic ki dney disease stage 4 977304387 N18.4 Hypertensive disorder 38 057395 I10 Type 2 lexx betes mellitus 29928584 E11.21 Coronary arteriosclerosis 60989928 I25.10 Mixed urin nasra incontinence 590941895 N39.46 Body mass index 25-29 - overweight 243922328 Z68.28 BMI 28.9 Overweight 591860132 E66 .3 [id number] Dylan Lebron APRN [address] [address] 09/02/2024 13:48:04 09/02/2024 15:32:54 Neuropathy 871053094 G62.9 Pt compliant with plan of careKasper reviewed and appropriat emedicatio n compliance discussedC ontrol substance agreement on fileuds: Long-term drug therapy 974346355 Z79.899 Acute maxi llary sinusitis 77449898 J01.00 on cipro Cough 89227126 R05.9 meds [id number] Dylan Lebron APRN [address] [address] 09/27/2024 11:37:40 09/27/2024 12:12:41 Candidiasis of vagina 42291313 B37.31 359321 take diflucan tab- only took one tabwait for cx results on urine and vaginal- before starting antibiotic s Burning se nsation of vagina 756572194 N94.89 997405 Pruritus of vagina 15530 003 N89.8 377275 [id number] Margarita Banks [facility] [address] [place] [address] 02/11/2025 12:58:26 02/11/2025 14:05:53 Recurrent urinary tract infection 738408326 N39.0 -continue estradiol VC. Overactive urinary bladder 306647401 N32.81 -avoid anticholin ergics in this patient d/t potential patient harm. anticholin ergics interact with currently rx medication s and combo may incr. risk of TAKER OFF depression , psychomoto r impairment . Also [...] d gemtesa- caused swelling in legs. Hydronephrosis 73986786 N13.30 Chronic ki dney disease stage 4 227818637 N18.4 Hypertensive disorder 38 095683 I10 Type 2 lexx betes mellitus 09859139 E11.21 Coronary arteriosclerosis 47436950 I25.10 Mixed urin nasra incontinence 801052441 N39.46 Body mass index 25-29 - overweight 124277130 Z68.28 BMI 28.9 Overweight 951737531 E66 .3 [id number] Dylan Lebron [address] [address] 11/19/2024 10:13:18 11/19/2024 13:47:54 Adult health examination 029337079 Z00.00 Depression screening 171 835107 Z13.31 A depression screening was completed via a standardiz ed screening tool. 5 minutes were spent discussing depression screening results and risk factors. Examinatio n of blood pressure 742687881 Z01.30 Diet education 49347651 Z71.3 Counseling 375486535 Z71 .82 Exercise counseling . Patient encouraged to exercise 30 minutes 5 days a week[facility] for falls 760462996 Z91.81 STEADI FAST screening score of _12____. 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 0012322045 44139 E11.621 L97.529 90425205 follow up with podiatryan tibioticsb etadine soaked dressings change dressing daily Pain of le ft knee joint 0565617132 21966 M25.562 907131 Impaired cognition 39982 6002 G31.84 816290 Low blood pressure 02144 003 I95.9 3179063482 Syncope and collapse 309 309850 R55 03080 if episode happens go to ed [id number] Dylan Lebron [employer] [address] [address] 11/29/2024 12:36:15 11/29/2024 14:31:57 Acute urinary tract infection 667837024 N39.0 622923 increase fluids cx Syncope and collapse 309 126281 R55 68484 if episode happens go to ed Type 2 lexx betes mellitus 72493863 E11.21 Infection of foot due to diabetes mellitus 523314926 E11.628 L08.9 7551471 follow up with taty on ue antibiotic s- one dose left [id number] Dylan Lebron [address] [address] 12/09/2024 10:12:10 12/09/2024 11:19:38 Acute urinary tract infection 038926816 N39.0 905225 advised to go to er for eval - pt declined at this timetake antibiotic as ordereddis cussed risk Neuropathy due to type 2 diabetes mellitus 2424381088 32253 E11.40 Z79.4 27472756 [id number] Dylan Lebron [address] [address] 02/03/2025 08:58:16 02/03/2025 10:21:01 Medical equipment or device education 994781993 Z46.81 867404 pt did not remember her id or password, called omnipod and had them reset. omnipod 5 set up with settings from [employer] pump working. educated pt/ about device and dexcom. pt/ states the understand and no questions at this time [id number] [facility] [address] [address] 03/21/2025 10:55:35 03/21/2025 12:17:33 Neuropathy 264031765 G62.9 Pt compliant with plan of careKasper reviewed and appropriat emedicatio n compliance discussedC ontrol substance agreement on fileuds: Arthritis 9831002 M19.90 Influenza vaccine needed 0412724710 106 Z23 Health Concerns Section Related Observation LastModified by Organization Detai ls LastModified Time None Recorded Concern Status LastModified by Organization Details LastModified Time None Recorded Advance Directives Directive N: Payers Insurance Date Sequence Insurance Name Policy Number Policy Elena Covered Member ID Elena Member ID Guarantor Name 03/18/2025 [place] [place] - [place] [facility] (MEDICARE) Jillian Robert [id number] Jillian Robert 03/18/2025 1 [place] Jillian Robert [id number] Jillian Robert 01/05/2022 1 [place] [employer] Jillian Robert [id number] Jillian Robert 03/18/2025 2 FOR LIFE ( - MEDICARE SUPPLEMENT) [id number] Mariano Robert [id number] Jillian Robert 12/17/2021 2 FOR LIFE () Jillian Robert [id number] Jillian Robert Notes Date Note Type Note Provider Name and Address Organization Details Recorded Time 5 text/html Emergency Department Follow-Up RecordReported by PatientEmergency Room Follow-Up RecordFor discharge information, patient reportsname of hospital/urgent care patient was seen: ([facility]patient presented to hospital/urgent care on or [...] months but more noticeable lately. Dylan Lebron, [employer] [address], [place], [address], [place] - [facility] 11/29/2024 14:13:11 5 text/html [...] and zofran not helping. want script for ariesergan Dylan Lebron, [employer]IC [address], [place], [address], [place] - [facility] 12/09/2024 13:46:39 5 text/html [...] for a diabetes follow up and to bladder changer to upgraded omnipod 5 from omnipod [...] for a chemical stress test tomorrow. Fina Vasquez null, [place] - [facility] 02/22/2025 15:17:20 5 text/html Lower [...] faecalis -mid december 2022- d/c summary from [facility] reports admit for left pyelo UCX grew klebsiella pneumoniae. -01/13/23- UCx negative.-01/13/23- creat 2.2, gfr 27. -01/13/23- CT abd pel w/o- per report- moderate hydronephrosis and hydroureter on the left, stable. moderate thickening of the bladder, likely d/t under distension. -01/14/23- d/c summary from [facility]- reviewed. admitted 01/13/23 for uti. ucx >100k [...] days -05/23/23- UCX negative. -06/05/23- UCX negative. -3/29/24- PCR urine testing- enterococcus faecalis (tx bactrim, [...] on methenamine and vitamin C Margarita Banks, [employer]IC [address], [place], [address], [place] - [facility] 02/11/2025 13:54:28 5 text/html 74 yr old female presents for refills on medications. 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
--- OUTSIDE RECORDS SUMMARY | 2025-04-15 14:27 | XMS_ITS | Data Portability ---
Author Organization [facility] [place] Address [address] [place] [address] Assessment No assessment recorded. Plan of Treatment [...] mg/mL suspensio n for injection 2024 025 [place] [address] [facility] - [address], [address], 03/07/2025 12:22:46 bupivacai ne (PF) 0.5 % (5 mg/mL) injection solution [address] - [address], [address], 03/07/2025 12:22:46 Kenalog 10 mg/mL suspensio n for injection [address] - [address], [address], 12/06/2024 07:31:38 bupivacai ne HCl 0.5 % (5 mg/mL) injection solution [address] - [address], [address], 12/06/2024 07:31:38 Kenalog 10 mg/mL suspensio n for injection [address] - [address], [address], 09/01/2024 10:31:05 bupivacai ne HCl 0.5 % (5 mg/mL) injection solution [address], [address], 09/01/2024 10:31:05 Kenalog 10 mg/mL suspensio n for injection [address], [address], 05/10/2024 13:53:03 bupivacai ne HCl 0.5 % (5 mg/mL) injection solution [address], [address], 05/10/2024 13:53:03 Kenalog 10 mg/mL suspensio n for injection [address], [address], 03/09/2024 16:28:55 bupivacai ne HCl 0.5 % (5 mg/mL) injection solution [address], [address], 03/09/2024 16:28:55 Patient TargetsNo targets recorded. Patient [...] completed Diann Urb[place] null[place] [facility] [place] 05/10/2024 13:41:40 Influenza, high-dose, quadrivalent, PF 04/25/2023 completed Diann [place] [facility] [facility] [place] 05/10/2024 13:41:40 COVID-19, mRNA, LNP-S, PF, 100 mcg/0.5mL dose or 50 mcg/0.25mL dose 08/02/2020 completed Diann [place] [facility] [place] 05/10/2024 13:41:40 COVID-19, mRNA, LNP-S, PF, 100 mcg/0.5mL dose or 50 mcg/0.25mL dose 08/31/2020 completed Diann [place] [facility] [place] 05/10/2024 13:41:40 COVID-19, mRNA, LNP-S, PF, 100 mcg/0.5mL dose or 50 mcg/0.25mL dose 04/11/2021 completed Diann Sweeney-Pitakis null, [place] [facility] [place] [facility] [place] 05/10/2024 13:41:41 Tdap 04/20/2013 completed Diann Sweeney-[place] [facility] [place] 05/10/2024 13:41:41 zoster live 04/20/2013 completed Diann DeckerPitakis [place] [facility] [place] 05/10/2024 13:41:41 Influenza, high-dose, trivalent, PF 02/24/2024 completed Mercedez Y[place] [facility] [place] 09/01/2024 10:16:21 Influenza, high-dose, trivalent, PF 05/16/2021 completed Diann Sweeney-Pitakis [place] [facility] [place] 05/10/2024 13:41:41 Past Encounters Encounter ID Performer Location Encounter Start Date Encounter Closed Date Diagnosis/Indication Diagnosis SNOMED-CT Code Diagnosis ICD10 Code Diagnosis IMO Codes Diagnosis Note [id number] DO [facility]AKASH [facility] [address] [address] 03/09/2024 13:25:41 03/09/2024 14:26:14 Bursitis of right hip 348494872 M06.035 [id number] DO AAKASH REYES[facility]ny [facility] [address] [address] 05/10/2024 13:14:55 05/10/2024 13:48:55 Bursitis of right hip 199535016 M06.325 [id number] DO [facility]ASH [facility] [address] [address] 09/01/2024 10:05:42 09/01/2024 10:22:08 Bursitis of right hip 438017314 M06.598 [id number] DO [facility]ASH [facility] [address] [address] 12/03/2024 09:59:37 12/03/2024 11:17:13 Bursitis of right hip 309447353 M06.766 [id number] LASHELL TEJADA [facility] [address] [place] [address] 03/07/2025 10:24:07 03/07/2025 10:57:19 Trochanteric bursitis of right hip [id number] 74502 M70.61 [id number] Health Concerns Section Related Observation LastModified by Organization Detai ls LastModified Time None Recorded Concern Status LastModified by Organization Details LastModified Time None Recorded Advance Directives Directive None Recorded Payers Insurance Date Sequence Insurance Name Policy Number Policy Elena Covered Member ID Elena Member ID Guarantor Name 03/04/2025 2 FOR LIFE () Jillian Yesica [id number] Jillian Robert 03/04/2025 1 [place]ARE[place] ([place]ICARE) Jillian Jero Yesica [id number] Jillian Robert Notes Date Note Type Note Provider Name and Address Organization Details Recorded Time 03/09/2024 text/html ROS as noted in the HPI Pt presents today with right hip pain DOO: 1 year. No injury. Pt was seeing Dr. Lawson at [facility] and was told that she has Bursitis, he then referred her to the clinic. Pt had her last hip injection on 03.11.2023. Injections no longer seem to be helping. Pt takes aspirin and ibuprofen for pain. Pt has been using a walker since pain in hip started. Hx of: L5-S1 fusion on 08.14.2022. Right hip X-rays taken @ [facility] in [place] on 07.23.2023.[id number] LASHELL TEJADA DO [address] [place] [address],[address], [place], [address], [place] [facility] [place] 03/10/2024 07:38:07 05/10/2024 text/html 73 y/o female here today for follow up RIGHT bursa hip joint was injected 03.09.24. Helped up until 2 weeks ago, at least 75% but pain isn't as bad right now prior to getting injection. Ambulating with rollator walker. Taking Ibu PRN. [id number] LASHELL TEJADA DO [address] [facility],[address], [place], [address], [place] [facility] [place] [facility] [place] 05/10/2024 13:50:09 09/01/2024 text/html ROS as noted in the HPI Pt is here wanting another rt hip bursa inj. She reports the inj has been effective for 3 months-[id number] LASHELL TEJADA, DO [address] [place] [address],[address], [place], [address], [place] [facility] [facility] [place] 09/01/2024 13:19:42 12/03/2024 text/html 3.26.25 right hip bursa injection- helped almost 3 [id number] LASHELL TEJADA, [address], [place], [address], [place] [facility] [facility] [place] 12/06/2024 12:27:27 03/07/2025 text/html 6.27.25 RIGHT hip bursa was injected- effective until [id number] LASHELL TEJADA, [address] [place] [address],[address], [place], [address], [place] [facility] [facility] [place] 03/07/2025 12:15:16 OBGyn Episode No OBEpisode recorded.
--- OUTSIDE RECORDS SUMMARY | 2025-04-15 14:27 | XMS_ITS | Data Portability ---
Author Organization [facility] [place] [facility] Address [address] [facility] [address] [place] [address] Assessment Encounter Date Assessment Date Assessment LastModified [...] Orders Reglan 5 mg tablet 2017 018 [facility], [address] [place] [address] [place], [id number], 8 15:03:03 scopolamin e 1 mg over 3 days transderma l patch 2017 018 [facility], [address] [place] [address] [address], [place], [id number], 2 10:19:31 Patient TargetsNo targets recorded. Patient InstructionsNo instructions recorded. Reason for Referral None Reported. Results Created Date Observation Date Name Description Value Unit Range Abnormal Flag Note LastModifiedBy Organization Detail LastModifiedTime 05/11/20 18 05/11/2018 XR, lumbo sacra l spine , 2 or [address] [address] Chloezenaida balderrama Name: JILLIAN balderrama : 951 Gabrielle balderrama Orderi ng Provid er: DECLNA DEMPSEY EXAM DATE: 2017 EXAM: XR LUMBAR [...] Barker MD on 018 3:54 PM [email or web address] [facility] Radiology [facility] [address] [place] [address], [address], 05/11/2018 17:22:37 Result Notes Documentation Provider Name and Address Organization Details Recorded Time Xr, Lumbosacral Spine, 2 Or 3 View : [facility] [address] [place] [address] Patient Name: JILLIAN ROBERT Patient : 1950 [...] By: Amilcar Barker MD PSON DEMPSEY MD [address] [place] [address], [address], [facility] 05/11/2018 17:22:37 Procedures Surgical History Date Name Laterality Status Provider Name and Address Organization Details Recorded Time 04/08/20 18 POSTERIOR LUMBAR INTERBODY FUSION, SINGLE INTERSPACE (SURG) completed Katt Elam [facility] 04/13/2018 09:04:24 tonsillectomy completed [facility] 03/09/2018 14:07:34 Appendectomy completed [facility] 03/09/2018 14:07:44 section completed [facility] 03/09/2018 14:08:11 Cholecystectomy w/cholang completed [facility] 03/09/2018 14:08:34 complete repair of rotator cuff completed [facility] 03/09/2018 14:08:48 hysterectomy completed Angi Evans [facility] 03/09/2018 14:08:59 Neck Surgery completed Angi Evans [facility] 03/09/2018 14:09:09 coronary artery bypass graft completed Angi Evans [facility] 03/09/2018 14:09:28 Imaging Results None recorded. Procedure Notes None recorded. Medical Equipment None Reported. Allergies Allergen ID Allergen Name Allergen Category Reaction Reaction Severity Criticality Documentation Date Start Date Code Code System Note Provider Name and Address Organization Details Recorded Time 067736 codeine medicatio n Not available Not available Not available 05/03/20162012 2670 RxNorm Comme nt: Creat ed By: Herlinda glynn Date: 2012 3:01: 29 PM; Not Available [facility] 6 09:24:07 070829 acetamino phen / oxycodone medicatio n Not available Not available Not available 03/09/2018 97798 3 RxNorm Angi Evans [facility] 8 14:10:48 082902 lisinopri l medicatio n rash Not available Not available 07/24/2023 77476 RxNorm Nikki Marcano [facility] 4 11:37:15 576906 cephalexi n medicatio n eye swelling Not available Not available 07/24/2023 2231 RxNorm Nikki Marcano [facility] 4 11:37:15 509904 Oxycontin medicatio n hallucina tions moderate Not available 07/24/2023 08667 6 RxNorm Nikki Marcano [facility] 4 11:37:15 744900 Macrobid medicatio n diarrhea moderate Not available 07/24/2023 05143 1 RxNorm Nikki Marcano [facility] 4 11:37:15 Medications Name Sig Start [...] tablet Not Available Not Available Not Available [place] 7.5 mg-325 mg tablet Take 1 tablet [...] Available Not Available Not Avai lable [facility] [place] 3 mL active Not Available Not Available [...] Updated DateTime 03/09/2018 149.86 cm 29.1 kg/m2 31373.3 g 130/80 mm[Hg] Angi Evans [facility] 03/09/2018 14:10:30 Date Recorded Body height Body mass index (BMI) Body weight Systolic And Diastolic Provider Name and Address Organization Details Last Updated DateTime 05/11/2018 149.86 cm 29.1 kg/m2 69431.3 g 130/82 mm[Hg] Angi Evans [facility] 05/11/2018 16:06:10 Social History Question Answer Notes LastModified by Organizat ion Details LastModified Time Tobacco Smoking Status Never Smoker Angi Evans [facility] 03/09/2018 14:07:26 What Was The Date Of Your Most Recent Tobacco Screening? 05/11/2018 Information n ot available 07/27/2019 Sex: Unknown Functional Status None recorded. Mental Status None recorded. Family History Nothing Reported. Medical History Condition Response Arthritis Y High Cholesterol Y Kidney Disease Y Diabetes Y Thyroid Disorder Y Hypertension Y Gynecological HistoryNo gynecological history recorded. Obstetrics History GPAL:G 0 P 0 0 0 0 Immunizations Vaccine Type Date Status Note Provider Nam e and Address Organization Details Recorded Time Influenza, high-dose, quadrivalent, PF 02/21/2022 completed [facility] 07/24/2023 11:37:18 Influenza, high-dose, quadrivalent, PF 04/25/2023 completed [facility] 07/24/2023 11:37:18 COVID-19, mRNA, LNP-S, PF, 100 mcg/0.5mL dose or 50 mcg/0.25mL dose 08/02/2020 completed [facility] 07/24/2023 11:37:18 COVID-19, mRNA, LNP-S, PF, 100 mcg/0.5mL dose or 50 mcg/0.25mL dose 08/31/2020 completed [facility] 07/24/2023 11:37:18 COVID-19, mRNA, LNP-S, PF, 100 mcg/0.5mL dose or 50 mcg/0.25mL dose 04/11/2021 completed [facility] 07/24/2023 11:37:18 Tdap 04/20/2013 [facility]23 11:37:18 zoster live 04/20/2013 completed [facility] 07/24/2023 11:37:18 Influenza, high-dose, trivalent, PF 05/16/2021 completed Nikkianuradha Marcano [facility] 07/24/2023 11:37:18 Past Encounters Encounter ID Performer Location Encounter Start Date Encounter Closed Date Diagnosis/Indication Diagnosis SNOMED-CT Code Diagnosis ICD10 Code Diagnosis IMO Codes Diagnosis Note [id number] THOMPSON DEMPSEY MD [facility] [address] [place] [address] 03/09/2018 13:17:46 03/09/2018 14:49:59 Lumbar spondylolisthesis [id number] 53421 M43.16 [id number] ELVER FAIRCHILD PA-C [facility] [address] [place] [address] 04/20/2018 14:08:30 04/20/2018 15:04:27 Nausea [id number] R11.0 [id number] THOMPSON DEMPSEY MD [facility] [address] [place] [address] 05/11/2018 15:08:15 05/12/2018 10:01:34 Postoperative care [id number] Z48.89 Health Concerns Section Related Observation LastModified by Organization Detai ls LastModified Time None Recorded Concern Status LastModified by Organization Details LastModified Time None Recorded Advance Directives Directive None Recorded Payers Insurance Date Sequence Insurance Name Policy Number Policy Elena Covered Member ID Elena Member ID Guarantor Name 05/03/2020 2 FOR LIFE ( - MEDICARE SUPPLEMENT) Jillian Robert [id number] Jillian Robert 05/03/2020 1 [place] Jillian Robert [id number] Jillian Robert 06/19/2018 2 FOR LIFE ( - MEDICARE SUPPLEMENT) Jillian Robert [id number] Jillian Robert Notes Date Note Type Note [...] right leg. She underwent physical therapy at [facility]. She is unable take anti-inflammatorie s due to renal issues. She has trialed steroid shots as well as a TENS unit. She is not currently on any narcotic pain medication. She takes Neurontin for diabetic pain Sada perales, [facility] 04/06/2018 17:11:28 05/11/2018 text/html ROS as noted [...] to today's follow-up. THOMPSON DEMPSEY MD [address] [place], [address], [facility] 05/11/2018 17:17:16 OBGyn Episode No OBEpisode recorded.
--- OUTSIDE RECORDS SUMMARY | 2025-04-15 14:28 | XMS_ITS | Clinical Summary ---
Author Organization [facility] Address [address] [place] [address] Care Team Providers Care Glue Jointer Operator Name Role Phone Roman King LEGAL WORD PROCESSOR Primary Care Provider [phone] Allergies Active Allergy Reactions Criticality Noted Date [...] Disposable Pump (Omnipod DASH Pods, Gen 4,) [facility] Active Insulin Disposable Pump (Omnipod DASH Pods, Gen 4,) [facility] Omnipod Dash Pods (Gen 4) subcutaneous cartridge [...] Description 04/22/2025 10:40 AM EST Office Visit [facility] [address] [place] [address] Isabel Womack, LEGAL WORD PROCESSOR [address] [facility] [address] [place] [address] Health Maintenance Due Date Last [...] 04/20/2023 04/20/2013 [facility]-Bone Density Scan 06/18/2024 06/18/2023 [id number] Vaccine ( season) 2025 04/11/2021, 08/31/2020, 08/02/2020 [...] this topic Insurance MEDICARE [employer] Care Teams Glue Jointer Operator Relationship Specialty Start Date End Date Roman King APRN [address] [place] [address] [facility] - General 01/21/22
--- OUTSIDE RECORDS SUMMARY | 2025-04-15 14:28 | XMS_ITS | Clinical Summary ---
Author Organization [facility] Address [address] [place] [address] Care Team Providers Care Accounting Intern Name Role Phone Roman King GAMA Primary Care Provider [phone] Social History Tobacco Use Types Packs/Day Years [...] Description 09/07/2025 1:30 PM EDT Office Visit [facility] [address] [facility] [address] [place] [phone] Jennie Kebede APRN [address] [facility] [address] [place] [address] Health Maintenance Due Date Last Done Comments [...] Anatomical Region Laterality Modality Radiographic Roz ging [facility] Onbase IMG DIAGNOSTIC IMAGING ORDERA BLES Final Result from Last 3 Months Insurance MEDICARE A & B [facility] Care Teams Accounting Intern Relationship Specialty Start Date End Date Roman King APRN [address] [place] [address] [place], [place] [id number] PCP - General Family Medicine 03/30/25
--- OUTSIDE RECORDS SUMMARY | 2025-04-15 14:28 | XMS_ITS | Continuity of Care Document ---
Author Organization [place] [facility] [place], [facility] Address [address] [facility] [place] [address] Assessment No assessment recorded. Plan of Treatment [...] mg/mL suspensio n for injection [address], [address], 03/07/2025 12:22:46 bupivacai ne (PF) 0.5 % (5 mg/mL) injection solution [address], [address], 03/07/2025 12:22:46 Patient TargetsNo targets recorded. Patient [...] Diann Sweeney-Pitakis [place], [place] [facility] [place] [facility] [place] 05/10/2024 13:41:40 Influenza, high-dose, quadrivalent, PF 04/25/2023 completed Diann Sweeney-[place] [facility] [place] 05/10/2024 13:41:40 COVID-19, mRNA, LNP-S, PF, 100 mcg/0.5mL dose or 50 mcg/0.25mL dose 08/02/2020 completed Diann Sweeney-[place] [facility] [place] 05/10/2024 13:41:40 COVID-19, mRNA, LNP-S, PF, 100 mcg/0.5mL dose or 50 mcg/0.25mL dose 08/31/2020 completed Diann Sweeney-[place] [facility] [place] 05/10/2024 13:41:40 COVID-19, mRNA, LNP-S, PF, 100 mcg/0.5mL dose or 50 mcg/0.25mL dose 04/11/2021 completed Diann Sweeney[place] 05/10/2024 13:41:41 Tdap 04/20/2013 completed Diann [place]ey[place] 05/10/2024 13:41:41 zoster live 04/20/2013 completed Diann [place]weeney[place] 05/10/2024 13:41:41 Influenza, high-dose, trivalent, PF 02/24/2024 completed Mercedez [place] [facility] [place] 09/01/2024 10:16:21 Influenza, high-dose, trivalent, PF 05/16/2021 completed Diann [place]rb[place] 05/10/2024 13:41:41 Past Encounters Encounter ID Performer Location Encounter Start Date Encounter Closed Date Diagnosis/Indication Diagnosis SNOMED-CT Code Diagnosis ICD10 Code Diagnosis IMO Codes Diagnosis Note [id number] LASHELL TEJADA DO Monica dee [facility] [address] [place] [address] 03/07/2025 10:24:07 03/07/2025 10:57:19 Trochanteric bursitis of right hip [id number] 19321 M70.61 [id number] Health Concerns Section Related Observation LastModified by Organization Detai ls LastModified Time None Recorded Concern Status LastModified by Organization Details LastModified Time None Recorded Payers Encounter Date Sequence Insurance Name Policy Number Policy Elena Covered Member ID Elena Member ID Guarantor Name 03/07/2025 1 [place] Jillian Robert [id number] Jillian Robert 03/07/2025 2 FOR LIFE () Jillian Robert [id number] Jillian Robert Notes Date Note Type Note Provider Name and Address Organization Details Recorded Time 03/07/2025 text/html 6.27.25 RIGHT hip bursa was injected- effective until [id number] LASHELL TEJADA DO [address] [facility],[address], [place], [address], [place] [facility] [facility] [place] 03/07/2025 12:15:16 OBGyn Episode No OBEpisode recorded.
[2025-04-15 14:30] LABS: Microscopic, Urine URINE MICROSCOPIC (MICROSCOPIC)
--- NOTE | 2025-04-15 15:00 | CT_ITS ---
FINAL REPORT TECHNIQUE: Axial images of the left foot was obtained by computed tomography. Reformatted images were obtained and reviewed. This study was performed with techniques to keep radiation doses as low as reasonably achievable, (ALARA). Individualized dose reduction techniques using automated exposure control or adjustment of mA and/or kV according to the patient's size were employed. CLINICAL HISTORY: Evaluation of Left Foot Ulcer ulcer on bottom of big toe FINDINGS: There is a soft tissue ulceration along the plantar aspect of the first proximal phalange. There is no evidence of bony erosion or periosteal reaction. An overlying bandage is identified. The mortise is intact. There is a small lucency at the medial talar dome, may represent a small osteochondral lesion measuring 5 mm in diameter. Finding is best seen on image 51 of series 601. IMPRESSION: Soft ulceration along the plantar aspect of the first proximal phalange. Small osteochondral lesion of the medial talar dome. Reviewed, Interpreted and Dictated by Sae Mai MD Transcribed by Pippa Blair Authenticated and [facility]
[2025-04-15 15:11] LABS: Hematocrit 40.0 % (37.0-47.0); Hemoglobin 13.3 g/dL (12.2-16.2); Mean Corpuscular HGB Conc 33.3 g/dL (31.8-35.4); Mean Corpuscular Hemoglobin 30.0 pg (27.0-31.2); Mean Corpuscular Volume 90.3 fl (81-99); Nucleated Red Blood Cells % 0 %; Platelet Count 259 K/mm3 (142-424); Red Blood Count 4.43 M/mm3 (4.20-5.40); Red Cell Distribution Width-SD 49.9 fL; White Blood Count 11.6 K/mm3 (4.8-10.8)
[2025-04-15 15:13] LABS: Hematocrit 40.7 % (37.0-47.0); Hemoglobin 13.4 g/dL (12.2-16.2); Immature Granulocytes % 1.3 %; Mean Corpuscular HGB Conc 32.9 g/dL (31.8-35.4); Mean Corpuscular Hemoglobin 29.8 pg (27.0-31.2); Mean Corpuscular Volume 90.4 fl (81-99); Nucleated Red Blood Cells % 0 %; Platelet Count 270 K/mm3 (142-424); Red Blood Count 4.50 M/mm3 (4.20-5.40); Red Cell Distribution Width-SD 49.2 fL; White Blood Count 11.5 K/mm3 (4.8-10.8)
[2025-04-15 15:26] LABS: Bilirubin,Urine Negative (Negative); Color,Urine YELLOW (Yellow); Glucose,Urine (UA) Negative (Negative); Ketones,Urine Negative (Negative); Leukocyte Esterase,Urine TRACE (Negative); PH,Urine 6.0 (5.0-8.5); Protein,Urine 1+ (Negative); Specific Gravity, Urine 1.025 (1.005-1.030); Urobilinogen,Urine 0.2 EU/dl (0.2)
[2025-04-15 15:37] LABS: Bacteria,Urine 2+ /lpf; Squamous Epithelial Cell,Urine Occasional #/hpf (0-5); WBC,Urine 50-100 #/hpf (0-3)
[2025-04-15 15:42] LABS: Alanine Aminotransferase 25 U/L (12-78); Albumin Level 3.9 g/dl (3.5-5.0); Albumin/Globulin Ratio 1.2 (1.1-1.8); Alkaline Phosphatase 95 U/L (38-126); Anion Gap 12.8 mEq/L (5-15); Aspartate Amino Transferase 27 U/L (14-36); Bilirubin,Total 0.4 mg/dl (0.2-1.3); Blood Urea Nitrogen 42 mg/dl (7-17); Calcium 9.8 mg/dl (8.4-10.2); Carbon Dioxide 27 mmol/L (22.0-30.0); Chloride 101 mmol/L (98-107); Creatinine,Serum 2.00 mg/dl (0.52-1.04); Estimated Glomerular Filt Rate 24 ml/min (>60); GFR (African American) 29 ML/MIN (>60); Globulin 3.2 g/dL (1.3-3.2); Glucose 129 mg/dl (74-100); Potassium 4.8 mmoL/L (3.5-5.1); Sodium 136 mmol/L (136-145); Total Protein,Serum 7.1 g/dl (6.3-8.2)
[2025-04-15 15:45] LABS: Albumin Level 3.9 g/dl (3.5-5.0); Anion Gap 12.6 mEq/L (5-15); Blood Urea Nitrogen 43 mg/dl (7-17); Calcium 9.8 mg/dl (8.4-10.2); Carbon Dioxide 27 mmol/L (22.0-30.0); Chloride 101 mmol/L (98-107); Creatinine,Serum 2.00 mg/dl (0.52-1.04); Estimated Glomerular Filt Rate 24 ml/min (>60); GFR (African American) 29 ML/MIN (>60); Glucose 131 mg/dl (74-100); Phosphorous 4.3 mg/dl (2.5-4.5); Potassium 4.6 mmoL/L (3.5-5.1); Sodium 136 mmol/L (136-145)
[2025-04-15 15:48] LABS: C-Reactive Protein 5.8 mg/L (0-4)
[2025-04-15 15:59] LABS: 25-OH Vitamin D, Total 25.9 ng/mL (30-100)
== END 2025-04-15 23:59 | disposition home or self-care (01) ==
LOC: RAD 14:23
PROVIDERS: Nurse Practitioner; PCP Nurse Practitioner Family; Visit Provider Podiatrist
DX: M93.872 Other specified osteochondropathies, left ankle and foot (principal); E11.621 Type 2 diabetes mellitus with foot ulcer; L97.529 Non-pressure chronic ulcer of other part of left foot with unspecified severity; L03.116 Cellulitis of left lower limb; N18.4 Chronic kidney disease, stage 4 (severe)
CPT/HCPCS: 36415; 73700; 80053; 80069; 81001; 82306; 82570; 83970; 84156; 85025; 85027; 85651; 86140; 87086; 87088; 87186